=== PATIENT | female | born 1975 | race Caucasian/White ===

== ENCOUNTER 2019-04-14 08:54 | Emergency (ER) | payer MEDICAID ==
[2019-04-14 09:30] VITALS: O2SAT 100
[2019-04-14] MEDS ORDERED: TORAdol 30 mg Injection IV ONE (09:32)
[2019-04-14] MEDS ORDERED: MORPHINE SULFATE 4 MG INJ IV ONE (09:32)
[2019-04-14] MEDS ORDERED: Zofran 4 MG/2 ML VIAL IV ONE (09:32)
--- NOTE | 2019-04-14 09:44 | ERPHSYRPT ---
- History of Present Illness Time Seen by Provider: 04/14/19 09:30 Source: patient Exam Limitations: no limitations Patient Subjective Stated Complaint: BLOOD IN URINE, PAIN IN LEFT SIDE THAT GOES INTO BACK AND PELVIC AREA. STATES WHEN SHE VOIDS IN FEELS LIKE RAZOR BLADES. PATIENT STATES NAUSEATED Triage Nursing Assessment: PATIENT WITH BLOOD IN URINE. RESIDENT WITH HX KIDNEY STONES. PATIENT STATES BORN WITHOUT RIGHT KIDNEY. Physician History: 44-year-old female and horses long-standing history kidney stones often requiring surgical intervention presenting with what she thinks is a kidney stone. Patient also under history is so low kidney on the left. Patient has had 3 days of progressive stabbing sharp now severe constant left flank pain with dysuria and hematuria. Nausea without vomiting. No fevers. No abdominal pain. No focal numbness or weakness. PMH: Patient denies chronic medical history Social: Patient endorses tobacco use Allergies/Adverse Reactions: Sulfa (Sulfonamide Antibiotics) Allergy (Intermediate, Verified 04/14/19 09:38) Vomiting bee venom protein (honey bee) Allergy (Verified 04/14/19 09:40) ketorolac [From Toradol] Allergy (Verified 04/14/19 09:40) methylprednisolone [From Solu-Medrol] Allergy (Verified 04/14/19 09:40) tramadol Allergy (Verified 04/14/19 09:40) Hx Tetanus, Diphtheria Vaccination/Date Given: No Hx Influenza Vaccination/Date Given: No Hx Pneumococcal Vaccination/Date Given: No Immunizations Up to Date: Yes - Review of Systems Constitutional: No Fever, No Chills Eyes: No Symptoms Ears, Nose, & Throat: No Symptoms Respiratory: No Cough, No Dyspnea Cardiac: No Chest Pain, No Edema, No Syncope Abdominal/Gastrointestinal: Nausea, No Abdominal Pain, No Vomiting, No Diarrhea Genitourinary Symptoms: Dysuria, Hematuria, Other (left flank pain) Musculoskeletal: No Back Pain, No Neck Pain Skin: No Rash Neurological: No Dizziness, No Focal Weakness, No Sensory Changes Psychological: No Symptoms Endocrine: No Symptoms All Other Systems: Reviewed and Negative - Past Medical History Pertinent Past Medical History: Yes Neurological History: Migraines ENT History: No Pertinent History Cardiac History: No Pertinent History Respiratory History: No Pertinent History Endocrine Medical History: No Pertinent History Musculoskeletal History: Arthritis GI Medical History: Gallbladder Disease History: Other Psycho-Social History: Bipolar Female Reproductive Disorders: Other - Past Surgical History Past Surgical History: Yes Neuro Surgical History: No Pertinent History Cardiac: No Pertinent History Respiratory: No Pertinent History Gastrointestinal: Cholecystectomy Genitourinary: Kidney Surgery Musculoskeletal: No Pertinent History Female Surgical History: Hysterectomy - Social History Smoking Status: Current every day smoker How long have you smoked: 30 YEARS Exposure to second hand smoke: Yes Drug Use: none Patient Lives Alone: No - Female History Hx Last Menstrual Period: HX HYSTERECTOMY 16 YEARS AGO Hx Now: No - Nursing Vital Signs Nursing Vital Signs: Initial Vital Signs Temperature 97.3 F 04/14/19 09:27 Pulse Rate 92 H 04/14/19 09:27 Respiratory Rate 18 04/14/19 09:27 Blood Pressure 137/93 04/14/19 09:27 O2 Sat by Pulse Oximetry 100 04/14/19 09:27 Pain Scale Pain Intensity 10 - Physical Exam General Appearance: no apparent distress, alert Eye Exam: PERRL/EOMI, eyes nml inspection Ears, Nose, Throat Exam: normal ENT inspection, TMs normal, pharynx normal, moist mucous membranes Neck Exam: normal inspection, non-tender, supple, full range of motion Respiratory Exam: normal breath sounds, lungs clear, No respiratory distress Cardiovascular Exam: regular rate/rhythm, normal heart sounds, normal peripheral pulses Gastrointestinal/Abdomen Exam: soft, normal bowel sounds, No tenderness, No mass Back Exam: normal inspection, normal range of motion, No CVA tenderness, No vertebral tenderness Extremity Exam: normal inspection, normal range of motion, pelvis stable Neurologic Exam: alert, oriented x 3, cooperative, normal mood/affect, nml cerebellar function, nml station & gait, sensation nml, No motor deficits Skin Exam: normal color, warm, dry, No rash Lymphatic Exam: No adenopathy SpO2 Interpretation: normal SpO2: 100 O2 Delivery: Room Air Ordered Tests: Active Orders 24 hr Category Date Time Status ABDOMEN AND PELVIS W/0 CONTRAS [CT] Stat Exams 04/14/19 09:37 Completed BMP Stat Lab 04/14/19 09:53 Completed CBC W DIFF Stat Lab 04/14/19 09:53 Completed CULTURE,URINE Stat Lab 04/14/19 10:11 Received UA W/RFX UR CULTURE Stat Lab 04/14/19 10:11 Completed Medication Summary Generic Name Dose Route Start Last Admin Trade Name Freq PRN Reason Stop Dose Admin Lactated Ringer's 1,000 mls @ 999 mls/hr 04/14/19 10:30 04/14/19 10:38 Lactated Ringers IV 04/14/19 11:30 999 mls/hr .Q1H1M ONE Administration Discontinued Medications Generic Name Dose Route Start Last Admin Trade Name Freq PRN Reason Stop Dose Admin Lactated Ringer's Confirm 04/14/19 10:36 Lactated Ringers Administered 04/14/19 10:37 Dose 1,000 mls @ ud IV .STK-MED ONE Ketorolac Tromethamine 15 mg 04/14/19 09:32 04/14/19 10:08 Toradol 30 Mg Injection IV 04/14/19 09:33 Not Given STAT ONE Morphine Sulfate 4 mg 04/14/19 09:32 04/14/19 09:56 Morphine Sulfate 4 Mg Inj IV 04/14/19 09:33 4 mg STAT ONE Administration Morphine Sulfate Confirm 04/14/19 09:51 Morphine Sulfate 4 Mg Inj Administered 04/14/19 09:52 Dose 4 mg .ROUTE .STK-MED ONE Ondansetron HCl 4 mg 04/14/19 09:32 04/14/19 10:00 Zofran 4 Mg/2 Ml Vial IV 04/14/19 09:33 4 mg STAT ONE Administration Ondansetron HCl Confirm 04/14/19 09:51 Zofran 4 Mg/2 Ml Vial Administered 04/14/19 09:52 Dose 4 mg .ROUTE .STK-MED ONE Oxycodone/Acetaminophen 1 tab 04/14/19 10:35 Percocet Tablet 5/325mg PO 04/14/19 10:36 STAT STA Promethazine HCl 25 mg 04/14/19 10:35 Phenergan 25 Mg Inj IV 04/14/19 10:36 STAT ONE Lab/Rad Data: Laboratory Result Diagrams 04/14/19 09:53 04/14/19 09:53 Laboratory Results 04/14/19 04/14/19 04/14/19 Range/Units 10:11 09:53 09:53 WBC 8.4 (4.0-10.5) K/mm3 RBC 4.96 (4.1-5.4) M/mm3 Hgb 15.7 (12.0-16.0) gm/dl Hct 47.8 H (35-47) % MCV 96.4 (78-100) fl MCH 31.7 (26-32) pg MCHC 32.8 (32-36) g/dl RDW 13.7 (11.5-14.0) % Plt Count 373 (150-450) K/mm3 MPV 9.2 (6-9.5) fl Gran % 74.1 H (36.0-66.0) % Eos # (Auto) 0.18 (0-0.5) Absolute Lymphs (auto) 1.47 (1.0-4.6) Absolute Monos (auto) 0.50 (0.0-1.3) Lymphocytes % 17.6 L (24.0-44.0) % Monocytes % 6.0 (0.0-12.0) % Eosinophils % 2.2 (0.00-5.0) % Basophils % 0.1 (0.0-0.4) % Absolute Granulocytes 6.20 (1.4-6.9) Basophils # 0.01 (0-0.4) Sodium 147 H (137-145) mmol/L Potassium 4.0 (3.5-5.1) mmol/L Chloride 113 H (98-107) mmol/L Carbon Dioxide 22 (22-30) mmol/L Anion Gap 15.5 H (5-15) MEQ/L BUN 15 (7-17) mg/dL Creatinine 0.73 (0.52-1.04) mg/dL Estimated GFR > 60.0 ML/MIN Glucose 92 (74-106) mg/dL Calcium 10.1 (8.4-10.2) mg/dL Urine Color YELLOW (YELLOW) Urine Appearance SLIGHTLY CLOUDY (CLEAR) Urine pH 5.0 (5-6) Ur Specific [place] 1.018 (1.005-1.025) Urine Protein 30 (Negative) Urine Ketones NEGATIVE (NEGATIVE) Urine Blood LARGE (0-5) Ed/ul Urine Nitrite NEGATIVE (NEGATIVE) Urine Bilirubin MODERATE (NEGATIVE) Urine Urobilinogen 4 (0-1) mg/dL Ur Leukocyte Esterase TRACE (NEGATIVE) Urine WBC (Auto) 51-100 (0-5) /HPF Urine RBC (Auto) >101 (0-2) /HPF U Epithel Cells (Auto) RARE (FEW) /HPF Urine Bacteria (Auto) NONE (NEGATIVE) /HPF Urine Culture Reflexed YES (NO) Urine Glucose NEGATIVE (NEGATIVE) mg/dL - Progress Progress: unchanged Progress Note: on initial reevaluation the patient's pain and not are reportedly unchanged. His normal blood pressure is not tachycardic and appeared fairly uncomfortable. She has specifically asked twice which he was receiving her medications and when told that the more he may make her nauseous she states that she always tolerates working well and then specifically requests Phenergan IV for her nausea. At this point CT scan is back and is not show evidence of kidney stone that she may have passed one. She has a normal caliber aorta without evidence of vascular catastrophe and no other acute findings. Her labs show likely mild dehydration but without leukocytosis I have low suspicion for infectious etiology.. In addition, we're waiting a urine to rule out UTI/pyelonephritis and at this time we'll transition her away from IV narcotics to oral pain medications during her time in the emergency department and give her additional antiemetics, though I do have some suspicion for narcotic seeking behavior here. urine sample difficult to interpret given the number of inflammatory white blood cells and red cells, suspect she may have recently passed a stone. It is nitrite negative however it is possible this is UTI/pyelonephritis given the number of white blood cells and we will treat with antibiotics accordingly. I said she is nontoxic afebrile and again without other vital sign abnormalities or physical exam findings consistent with severe disease. Culture pending. Patient prepared for discharge with further outpatient management and return precautions discussed in voice back. 04/14/19 10:35 04/14/19 10:50 - Departure Departure Disposition: Home Clinical Impression: UTI (urinary tract infection) with pyuria, Flank pain, Nausea Condition: Good Critical Care Time: No Referrals: DOCTOR,NO FAMILY [Primary Care Provider] - Instructions: Acute Cystitis (DC) Prescriptions: Ondansetron ODT 4 MG [Zofran Odt 4 mg] 4 mg PO Q6H PRN PRN #10 tab.rapdis PRN Reason: Nausea Cephalexin Mh 500 mg [Keflex 500 mg] 500 mg PO BID 5 Days #10 capsule
[2019-04-14] MEDS ORDERED: Zofran 4 MG/2 ML VIAL ONE (09:51)
[2019-04-14] MEDS ORDERED: MORPHINE SULFATE 4 MG INJ ONE (09:51)
[2019-04-14 09:55] LABS: BASOPHIL % 0.1 % (0.0-0.4); Basophil (Absolute #) 0.01 (0-0.4); Eosinophil % 2.2 % (0.00-5.0); Eosinophil (Absolute #) 0.18 (0-0.5); Hematocrit 47.8 % (35-47); Hemoglobin 15.7 gm/dl (12.0-16.0); Lymphocyte (Absolute #) 1.47 (1.0-4.6); Lymphocytes % 17.6 % (24.0-44.0); Mean Cell Volume 96.4 fl (78-100); Mean Corpuscular Hemoglobin 31.7 pg (26-32); Mean Corpuscular Hgb Concent. 32.8 g/dl (32-36); Mean Platelet Volume 9.2 fl (6-9.5); Neutrophil % 74.1 % (36.0-66.0); Platelet Count 373 K/mm3 (150-450); Red Blood Count 4.96 M/mm3 (4.1-5.4); Red Cell Distribution Width 13.7 % (11.5-14.0); White Blood Count 8.4 K/mm3 (4.0-10.5)
[2019-04-14 10:25] LABS: ANION GAP 15.5 MEQ/L (5-15); BLOOD UREA NITROGEN 15 mg/dL (7-17); CHLORIDE 113 mmol/L (98-107); Calcium 10.1 mg/dL (8.4-10.2); Carbon Dioxide 22 mmol/L (22-30); Creatinine 1 0.73 mg/dL (0.52-1.04); Glucose 92 mg/dL (74-106); SODIUM 147 mmol/L (137-145)
[2019-04-14] MEDS ORDERED: Lactated Ringers 1,000 ML IV ONE ×2 (10:30→10:36)
--- NOTE | 2019-04-14 10:30 | XRAY ---
Indication: Left flank pain. Multiple contiguous axial images obtained through the abdomen and pelvis without contrast using renal stone protocol. Comparison: None Lung bases demonstrates minimal bibasilar dependent atelectasis and tiny left calcified granuloma. Heart is not enlarged. Small distal paraesophageal calcified node. Left kidney demonstrates 3 nonobstructing micro-calculi, largest 3 mm. 7 mm left mid renal cortical cyst. Congenitally absent right kidney. A few pelvic phleboliths. Noncontrasted stomach and bowel loops appear nonobstructed. Normal appendix. No free fluid/air. A few calcified splenic granulomas. Previous cholecystectomy. Remaining liver, pancreas, spleen, adrenal glands, left kidney, left ureter, and urinary bladder appear unremarkable for noncontrast exam. Minimal aortoiliac calcifications without AAA. Osseous structures intact with mild L5-S1 degenerative changes. Impression: 1. Nonobstructing left renal micro-calculi and small left renal cyst. Congenitally absent right kidney. 2. Evidence for old granulomatous disease. 3. Remaining CT abdomen/pelvis without contrast exam is negative. CTDI 5.38
[2019-04-14 10:35] LABS: Appearance SLIGHTLY CLOUDY (CLEAR); Bilirubin MODERATE (NEGATIVE); Blood LARGE Ery/ul (0-5); Epithelial Cells RARE /HPF (FEW); Glucose NEGATIVE (NEGATIVE); Ketones NEGATIVE (NEGATIVE); Leukocyte Esterase TRACE (NEGATIVE); Nitrite NEGATIVE (NEGATIVE); Protein,Urine Dip 30 (Negative); Specific Gravity 1.018 (1.005-1.025); Urobilinogen 4 mg/dL (0-1); WBC 51-100 /HPF (0-5)
[2019-04-14] MEDS ORDERED: PERCOCET TABLET 5/325MG PO STA (10:35)
[2019-04-14] MEDS ORDERED: Phenergan 25 MG INJ IV ONE (10:35)
[2019-04-14 10:38] LABS: RBC >101 /HPF (0-2)
[2019-04-14] MEDS ORDERED: Phenergan 25 MG INJ ONE (10:46)
[2019-04-14] MEDS ORDERED: PERCOCET TABLET 5/325MG ONE (10:46)
[2019-04-14 11:00] VITALS: BP 105/83; PULSE 78
== END 2019-04-14 11:24 | disposition home or self-care (01) ==
LOC: ED 08:54
DX: R11.0 Nausea (principal)
CPT/HCPCS: 36415; 74176; 80048; 81001; 85025; 87077; 87086; 87186; 96374; 96375; 99285; J2270; J2405; J2550; A9270-GY

== ENCOUNTER 2019-06-03 13:03 | Emergency (ER) | payer MEDICAID ==
[2019-06-03] MEDS ORDERED: Zofran 4 MG/2 ML VIAL IV ONE (13:51)
[2019-06-03] MEDS ORDERED: Sodium Chloride 0.9% 1000 ML 1,000 ML IV STA (13:51)
[2019-06-03] MEDS ORDERED: MORPHINE SULFATE 4 MG INJ IV ONE (13:51)
--- NOTE | 2019-06-03 13:55 | ERPHSYRPT ---
- History of Present Illness Time Seen by Provider: 06/03/19 13:32 Historian: patient Exam Limitations: no limitations Patient Subjective Stated Complaint: PATIENT STATES SHE KNOWS SHE HAS A UTI. 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 Triage Nursing Assessment: PATIENT AMBULATED BACK TO ER. PATIENT VOIDED UPON GOING TO ROOM. URINE COLLECTED. URINE STRAW COLOR SLIGHTLY CLOUDY. NO ODOR NOTED. PATIENT ANSWERS QUESTIONS APPROPRIATLEY. PATIENT ALERT AND ORIENTATED TIMES 4. ABD SOFT ROUND NOON-DISTENDED. PATIENT STATES PAIN IN LEFT SIDE OD ABD UPON PALPITATION ANS STATES IT RADIATES TO HER LOWER BACK AND SIDE. PATIENT STATES SHE HAS BEEN HAVING NAUSEA BUT NO VOMITING. PATIENT STATES APPETITE AND FLUID INTAKE ADEQUATE Physician History: 44 years old female with history of kidney stones, migraines present in the ER with chief complaint of left flank pain for the last 2 days, more decreased in intensity, sharp stabbing,, feeling as if her razor blade while urinating. Associated with hematuria increased frequency with burning. Has nausea but no vomiting. Denies any fever or chills Timing/Duration: day(s) (2) Activities at Onset: rest Quality: sharpness, stabbing Abdominal Pain Onset Location: flank Pain Radiation: groin Severity of Pain-Max: moderate Severity of Pain-Current: severe Modifying Factors: Improves With: movement, palpation Allergies/Adverse Reactions: Sulfa (Sulfonamide Antibiotics) Allergy (Intermediate, Verified 06/03/19 14:51) Vomiting bee venom protein (honey bee) Allergy (Verified 06/03/19 14:51) ketorolac [From Toradol] Allergy (Verified 06/03/19 14:51) methylprednisolone [From Solu-Medrol] Allergy (Verified 06/03/19 14:51) tramadol Allergy (Verified 06/03/19 14:51) Hx Tetanus, Diphtheria Vaccination/Date Given: Yes Hx Influenza Vaccination/Date Given: No Hx Pneumococcal Vaccination/Date Given: No Immunizations Up to Date: Yes - Review of Systems Constitutional: No Symptoms Eyes: No Symptoms Ears, Nose, & Throat: No Symptoms Respiratory: No Symptoms Cardiac: No Symptoms Abdominal/Gastrointestinal: Abdominal Pain, Nausea, No Vomiting Genitourinary Symptoms: Dysuria, Frequency, Hematuria, Flank Pain Musculoskeletal: No Symptoms Skin: No Symptoms Neurological: No Symptoms Psychological: No Symptoms Endocrine: No Symptoms Hematologic/Lymphatic: No Symptoms - Past Medical History Pertinent Past Medical History: Yes Neurological History: Migraines ENT History: No Pertinent History Cardiac History: No Pertinent History Respiratory History: No Pertinent History Endocrine Medical History: No Pertinent History Musculoskeletal History: Arthritis GI Medical History: Gallbladder Disease History: Other Psycho-Social History: Bipolar Female Reproductive Disorders: Other - Past Surgical History Past Surgical History: Yes Neuro Surgical History: No Pertinent History Cardiac: No Pertinent History Respiratory: No Pertinent History Gastrointestinal: Cholecystectomy Genitourinary: Kidney Surgery Musculoskeletal: No Pertinent History Female Surgical History: Hysterectomy - Social History Smoking Status: Current every day smoker How long have you smoked: 20 YEARS Exposure to second hand smoke: Yes Drug Use: none Patient Lives Alone: No - Female History Hx Last Menstrual Period: POST Hx Now: No - Nursing Vital Signs Nursing Vital Signs: Initial Vital Signs Temperature 97.9 F 06/03/19 13:28 Pulse Rate 99 H 06/03/19 13:28 Respiratory Rate 16 06/03/19 13:28 Blood Pressure 128/79 06/03/19 13:28 O2 Sat by Pulse Oximetry 98 06/03/19 13:28 Pain Scale Pain Intensity 6 - Physical Exam General Appearance: no apparent distress Eye Exam: PERRL/EOMI, eyes nml inspection Ears, Nose, Throat Exam: normal ENT inspection, TMs normal, pharynx normal Neck Exam: normal inspection, non-tender Respiratory Exam: normal breath sounds, lungs clear, No chest tenderness Cardiovascular Exam: regular rate/rhythm, normal heart sounds, normal peripheral pulses Gastrointestinal/Abdomen Exam: soft, tenderness (left flank/LLQ/suprapubic ), guarding, No distention, No mass Back Exam: normal inspection, normal range of motion, CVA tenderness Extremity Exam: normal inspection Neurologic Exam: alert, oriented x 3, cooperative Skin Exam: normal color SpO2 Interpretation: normal SpO2: 98 O2 Delivery: Room Air - Course Nursing assessment & vital signs reviewed: Yes Ordered Tests: Active Orders 24 hr Category Date Time Status ABDOMEN AND PELVIS W/0 CONTRAS [CT] Stat Exams 06/03/19 13:51 Completed CBC W DIFF Stat Lab 06/03/19 13:51 Completed CMP Stat Lab 06/03/19 14:07 Completed CULTURE,URINE Stat Lab 06/03/19 14:19 Received LIPASE Stat Lab 06/03/19 14:07 Completed UA W/RFX UR CULTURE Stat Lab 06/03/19 14:19 Completed Medication Summary Discontinued Medications Generic Name Dose Route Start Last Admin Trade Name Yehuda PRN Reason Stop Dose Admin Sodium Chloride 1,000 mls @ 999 mls/hr 06/03/19 13:51 06/03/19 15:12 Sodium Chloride 0.9% 1000 Ml IV 06/03/19 14:51 Infused .Q1H1M STA Infusion Sodium Chloride Confirm 06/03/19 14:06 Sodium Chloride 0.9% 1000 Ml Administered 06/03/19 14:07 Dose 1,000 mls @ ud .ROUTE .STK-MED ONE Ketorolac Tromethamine 30 mg 06/03/19 15:40 06/03/19 15:46 Toradol 30 Mg Injection IV 06/03/19 15:41 30 mg STAT ONE Administration Ketorolac Tromethamine Confirm 06/03/19 15:45 Toradol 30 Mg Injection Administered 06/03/19 15:46 Dose 30 mg .ROUTE .STK-MED ONE Morphine Sulfate 4 mg 06/03/19 13:51 06/03/19 14:11 Morphine Sulfate 4 Mg Inj IV 06/03/19 13:52 4 mg STAT ONE Administration Morphine Sulfate Confirm 06/03/19 14:06 Morphine Sulfate 4 Mg Inj Administered 06/03/19 14:07 Dose 4 mg .ROUTE .STK-MED ONE Ondansetron HCl 4 mg 06/03/19 13:51 06/03/19 14:12 Zofran 4 Mg/2 Ml Vial IV 06/03/19 13:52 4 mg STAT ONE Administration Ondansetron HCl Confirm 06/03/19 14:06 Zofran 4 Mg/2 Ml Vial Administered 06/03/19 14:07 Dose 4 mg .ROUTE .STK-MED ONE Promethazine HCl 12.5 mg 06/03/19 15:40 06/03/19 15:43 Phenergan 25 Mg Inj IV 06/03/19 15:41 Not Given STAT ONE Promethazine HCl 25 mg 06/03/19 15:44 06/03/19 15:46 Phenergan 25 Mg PO 06/03/19 15:45 25 mg STAT ONE Administration Promethazine HCl Confirm 06/03/19 15:45 Phenergan 25 Mg Administered 06/03/19 15:46 Dose 25 mg .ROUTE .[facility]-MED ONE Lab/Rad Data: Laboratory Result Diagrams 06/03/19 13:51 06/03/19 14:07 Laboratory Results 06/03/19 06/03/19 06/03/19 Range/Units 14:19 14:07 13:51 WBC 6.3 (4.0-10.5) K/mm3 RBC 4.66 (4.1-5.4) M/mm3 Hgb 15.2 (12.0-16.0) gm/dl Hct 44.2 (35-47) % MCV 94.8 (78-100) fl MCH 32.6 H (26-32) pg MCHC 34.4 (32-36) g/dl RDW 14.0 (11.5-14.0) % Plt Count 436 (150-450) K/mm3 MPV 8.5 (7.5-11.0) fl Gran % 76.5 H (36.0-66.0) % Eos # (Auto) 0.07 (0-0.5) Absolute Lymphs (auto) 1.08 (1.0-4.6) Absolute Monos (auto) 0.32 (0.0-1.3) Lymphocytes % 17.1 L (24.0-44.0) % Monocytes % 5.1 (0.0-12.0) % Eosinophils % 1.1 (0.00-5.0) % Basophils % 0.2 (0.0-0.4) % Absolute Granulocytes 4.85 (1.4-6.9) Basophils # 0.01 (0-0.4) Sodium 143 (137-145) mmol/L Potassium 3.7 (3.5-5.1) mmol/L Chloride 107 (98-107) mmol/L Carbon Dioxide 23 (22-30) mmol/L Anion Gap 16.6 H (5-15) MEQ/L BUN 12 (7-17) mg/dL Creatinine 0.73 (0.52-1.04) mg/dL Estimated GFR > 60.0 ML/MIN Glucose 137 H (74-106) mg/dL Calcium 10.0 (8.4-10.2) mg/dL Total Bilirubin 0.40 (0.2-1.3) mg/dL AST 30 (14-36) U/L ALT 27 (0-35) U/L Alkaline Phosphatase 132 H (38-126) U/L Serum Total Protein 9.2 H (6.3-8.2) g/dL Albumin 4.8 (3.5-5.0) g/dL Lipase 33 (23-300) U/L Urine Color YELLOW (YELLOW) Urine Appearance SLIGHTLY CLOUDY (CLEAR) Urine pH 5.0 (5-6) Ur Specific [place] 1.026 (1.005-1.025) Urine Protein 30 (Negative) Urine Ketones TRACE (NEGATIVE) Urine Blood NEGATIVE (0-5) Ed/ul Urine Nitrite NEGATIVE (NEGATIVE) Urine Bilirubin NEGATIVE (NEGATIVE) Urine Urobilinogen NEGATIVE (0-1) mg/dL Ur Leukocyte Esterase SMALL (NEGATIVE) Urine WBC (Auto) 16-25 (0-5) /HPF Urine RBC (Auto) 3-5 (0-2) /HPF U Hyaline Cast (Auto) 6-10 (0-2) /LPF U Epithel Cells (Auto) FEW (FEW) /HPF Urine Bacteria (Auto) FEW (NEGATIVE) /HPF Urine Mucus (Auto) SLIGHT (NEGATIVE) /HPF Urine Culture Reflexed YES (NO) Urine Glucose NEGATIVE (NEGATIVE) mg/dL - Progress Progress: improved, pain not gone completely, re-examined Progress Note: she is given fluid and symptomatic treatment , feeling better oon reevaluation.I have obtained CT which showed recent passage of stone.. Does have some element of UTI. I would give her pain medication and antibiotics to go home, recommended outpatient followup with primary care in urology for evaluation. As the signs symptoms or worsening needing to come to the ER but she seems understanding. 06/03/19 Counseled pt/family regarding: lab results, diagnosis, need for follow-up, rad results, smoking cessation - Departure Departure Disposition: Home Clinical Impression: Ureterolithiasis Condition: Stable Critical Care Time: No Referrals: CHENCHO SALVADOR [COURTESY STAFF] - (call for appointment next week) MONICA MADDEN MD [ACTIVE STAFF] - Follow Up with PCP/3 days Instructions: Urinary Tract Infection, Adult (DC) Additional Instructions: drink plenty of fluids. Take ibuprofen/[place] needed. Follow up with primary care/urology for reevaluation. Return to ER for intractable pain, vomiting, fever chills etc. Prescriptions: Hydrocodone/APAP 5-325 Tab^^^ [[place] 5-325 Tablet^^^] 1 tab PO Q6HPRN PRN #7 tablet MDD 6 PRN Reason: Pain Smz/Tmp Ds Tablet [Bactrim Ds Tablet] 1 udtab PO BID #14 tablet
[2019-06-03 14:06] LABS: Absolute Neutrophil Ct (ANC) 4.85 (1.4-6.9); BASOPHIL % 0.2 % (0.0-0.4); Basophil (Absolute #) 0.01 (0-0.4); Eosinophil % 1.1 % (0.00-5.0); Eosinophil (Absolute #) 0.07 (0-0.5); Hematocrit 44.2 % (35-47); Hemoglobin 15.2 gm/dl (12.0-16.0); Lymphocyte (Absolute #) 1.08 (1.0-4.6); Lymphocytes % 17.1 % (24.0-44.0); Mean Cell Volume 94.8 fl (78-100); Mean Corpuscular Hemoglobin 32.6 pg (26-32); Mean Corpuscular Hgb Concent. 34.4 g/dl (32-36); Mean Platelet Volume 8.5 fl (7.5-11.0); Monocyte (Absolute #) 0.32 (0.0-1.3); Monocytes % 5.1 % (0.0-12.0); Neutrophil % 76.5 % (36.0-66.0); Platelet Count 436 K/mm3 (150-450); Red Blood Count 4.66 M/mm3 (4.1-5.4); White Blood Count 6.3 K/mm3 (4.0-10.5)
[2019-06-03] MEDS ORDERED: Sodium Chloride 0.9% 1000 ML 1,000 ML ONE (14:06)
[2019-06-03] MEDS ORDERED: MORPHINE SULFATE 4 MG INJ ONE (14:06)
[2019-06-03] MEDS ORDERED: Zofran 4 MG/2 ML VIAL ONE (14:06)
[2019-06-03 14:17] LABS: ALBUMIN 4.8 g/dL (3.5-5.0); ALKALINE PHOSPHATASE 132 U/L (38-126); ANION GAP 16.6 MEQ/L (5-15); BLOOD UREA NITROGEN 12 mg/dL (7-17); CHLORIDE 107 mmol/L (98-107); Carbon Dioxide 23 mmol/L (22-30); Creatinine 1 0.73 mg/dL (0.52-1.04); Glucose 137 mg/dL (74-106); LIPASE 33 U/L (23-300); Potassium 3.7 mmol/L (3.5-5.1); SGOT/AST 30 U/L (14-36); SGPT/ALT 27 U/L (0-35); SODIUM 143 mmol/L (137-145); Total Protein 9.2 g/dL (6.3-8.2)
[2019-06-03 14:35] LABS: Appearance SLIGHTLY CLOUDY (CLEAR); Bacteria FEW /HPF (NEGATIVE); Bilirubin NEGATIVE (NEGATIVE); Blood NEGATIVE Ery/ul (0-5); Epithelial Cells FEW /HPF (FEW); Glucose NEGATIVE (NEGATIVE); Ketones TRACE (NEGATIVE); Leukocyte Esterase SMALL (NEGATIVE); Mucus SLIGHT /HPF (NEGATIVE); Nitrite NEGATIVE (NEGATIVE); Protein,Urine Dip 30 (Negative); Specific Gravity 1.026 (1.005-1.025); Urobilinogen NEGATIVE mg/dL (0-1)
--- NOTE | 2019-06-03 14:59 | XRAY ---
Indication: Left lower quadrant and flank pain. Painful urination. History stones and congenitally absent right kidney. Multiple contiguous axial images obtained through the abdomen and pelvis without contrast using renal stone protocol. Comparison: April 14, 2019. Lung bases demonstrates stable right posterior gutter bleb without infiltrate or effusion. Heart is not enlarged. Stable small distal paraesophageal calcified node. Left kidney demonstrates stable 2 nonobstructing micro-calculi in the lower calyx and left mid renal cortical cyst. No hydronephrosis or perinephric fluid. Left mid to proximal ureter is now slightly prominent up to 7-8mm. No distal ureteral or bladder calculus. Again congenitally absent right kidney. Noncontrasted stomach and bowel loops nonobstructed. Normal appendix. Again a few calcified splenic granulomas and cholecystectomy clips. No free fluid/air. Remaining liver, pancreas, spleen, left kidney, left ureter, and urinary bladder appear unremarkable for noncontrast exam. Stable minimal aortoiliac calcifications without AAA. 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 Osseous structures intact again with L5-S1 degenerative changes. Impression: 1. There are 2 stable nonobstructing left renal micro-calculi previously numbering 3. Left ureter is slightly prominent. Query recent passage of calculus. 2. Stable left renal cyst, congenitally absent right kidney, duplication of the IVC, and evidence for old granulomatous disease.
[2019-06-03] MEDS ORDERED: TORAdol 30 mg Injection IV ONE (15:40)
[2019-06-03] MEDS ORDERED: Phenergan 25 MG INJ IV ONE (15:40)
[2019-06-03] MEDS ORDERED: PHENERGAN 25 MG PO ONE (15:44)
[2019-06-03] MEDS ORDERED: PHENERGAN 25 MG ONE (15:45)
[2019-06-03] MEDS ORDERED: TORAdol 30 mg Injection ONE (15:45)
[2019-06-03 15:52] VITALS: BP 112/75; PULSE 80; O2SAT 98
== END 2019-06-03 15:59 | disposition home or self-care (01) ==
LOC: ED 13:03
DX: N20.1 Calculus of ureter (principal); R10.9 Unspecified abdominal pain; R11.0 Nausea; R30.0 Dysuria; R35.0 Frequency of micturition; R31.9 Hematuria, unspecified
CPT/HCPCS: 36000; 36415; 74176; 80053; 81001; 83690; 85025; 87077; 87086; 87186; 96374; 96375; 99284; J1885; J2270; J2405; A9270-GY

== ENCOUNTER 2019-06-14 11:49 | Emergency (ER) | payer MEDICAID ==
--- NOTE | 2019-06-14 11:55 | ERPHSYRPT ---
- History of Present Illness Time Seen by Provider: 06/14/19 11:55 Source: patient Exam Limitations: no limitations Physician History: 44 y/o white female, with h/o recurrent utis and ureterolithiasis, presents with worsening left flank pain. pt sx present for several day and worse since yesterday. pt was suppose to be taking oral antibx but quit taking them because they were making her ill. she has not seen a pcp or urologist. pt has not had medical insurance. Timing/Duration: day(s) (several), worse Activites at Onset: none Quality: sharpness (left flank) Onset Location: left flank Severity of Pain-Max: moderate Severity of Pain-Current: moderate Prior abdominal problems: UTI Sexual intercourse history: non-contributory Associated Symptoms: chills, other (hematuria) Allergies/Adverse Reactions: Sulfa (Sulfonamide Antibiotics) Allergy (Intermediate, Verified 06/14/19 11:58) Vomiting bee venom protein (honey bee) Allergy (Verified 06/14/19 11:58) ketorolac [From Toradol] Allergy (Verified 06/14/19 11:58) methylprednisolone [From Solu-Medrol] Allergy (Verified 06/14/19 11:58) tramadol Allergy (Verified 06/14/19 11:58) Home Medications: Gabapentin 300 mg PO TID 06/14/19 [History] Hx Tetanus, Diphtheria Vaccination/Date Given: Yes Hx Influenza Vaccination/Date Given: No Hx Pneumococcal Vaccination/Date Given: No - Review of Systems Constitutional: No Symptoms Eyes: No Symptoms Ears, Nose, & Throat: No Symptoms Respiratory: No Symptoms Cardiac: No Symptoms Abdominal/Gastrointestinal: No Symptoms Genitourinary Symptoms: Hematuria Musculoskeletal: No Symptoms Skin: No Symptoms Neurological: No Symptoms Psychological: No Symptoms Endocrine: No Symptoms Hematologic/Lymphatic: No Symptoms Immunological/Allergic: No Symptoms All Other Systems: Reviewed and Negative - Past Medical History Pertinent Past Medical History: Yes Neurological History: Migraines ENT History: No Pertinent History Cardiac History: No Pertinent History Respiratory History: No Pertinent History Endocrine Medical History: No Pertinent History Musculoskeletal History: Arthritis GI Medical History: Gallbladder Disease History: Other Psycho-Social History: Bipolar Female Reproductive Disorders: Other - Past Surgical History Past Surgical History: Yes Neuro Surgical History: No Pertinent History Cardiac: No Pertinent History Respiratory: No Pertinent History Gastrointestinal: Cholecystectomy Genitourinary: Kidney Surgery Musculoskeletal: No Pertinent History Female Surgical History: Hysterectomy - Social History Smoking Status: Current every day smoker How long have you smoked: 20 YEARS Exposure to second hand smoke: Yes Drug Use: none Patient Lives Alone: No - Nursing Vital Signs Nursing Vital Signs: Initial Vital Signs Temperature 98.1 F 06/14/19 11:54 Pulse Rate 96 H 06/14/19 11:54 Blood Pressure 135/96 06/14/19 11:54 O2 Sat by Pulse Oximetry 100 06/14/19 11:54 Pain Scale Pain Intensity 6 - Physical Exam General Appearance: mild distress, alert, anxiety Eye Exam: PERRL/EOMI, eyes nml inspection Ears, Nose, Throat Exam: normal ENT inspection, moist mucous membranes Neck Exam: normal inspection, non-tender, supple, full range of motion Respiratory Exam: normal breath sounds, lungs clear, No chest tenderness, No respiratory distress Cardiovascular Exam: regular rate/rhythm, normal heart sounds, normal peripheral pulses Gastrointestinal/Abdomen Exam: soft, normal bowel sounds, No tenderness, No guarding Pelvic Exam: not done Rectal Exam: not done Back Exam: CVA tenderness (left) Extremity Exam: normal inspection, normal range of motion, pelvis stable Neurologic Exam: alert, oriented x 3, cooperative, 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 Skin Exam: normal color, warm, dry Lymphatic Exam: No adenopathy O2 Delivery: Room Air - Course Nursing assessment & vital signs reviewed: Yes Ordered Tests: Active Orders 24 hr Category Date Time Status IV Insertion STAT Care 06/14/19 12:13 Active ABDOMEN AND PELVIS W/0 CONTRAS [CT] Stat Exams 06/14/19 12:14 Completed CULTURE,URINE Stat Lab 06/14/19 14:00 Received UA W/RFX UR CULTURE Stat Lab 06/14/19 14:00 Completed Medication Summary Discontinued Medications Generic Name Dose Route Start Last Admin Trade Name Freq PRN Reason Stop Dose Admin Hydromorphone HCl 1 mg 06/14/19 12:13 06/14/19 12:25 Hydromorphone 1 Mg/Ml Ampule IV 06/14/19 12:14 1 mg STAT ONE Administration Hydromorphone HCl Confirm 06/14/19 12:23 Hydromorphone 1 Mg/Ml Ampule Administered 06/14/19 12:24 Dose 1 mg .ROUTE .STK-MED ONE Hydromorphone HCl 1 mg 06/14/19 13:29 06/14/19 13:36 Hydromorphone 1 Mg/Ml Ampule IV 06/14/19 13:30 1 mg STAT ONE Administration Hydromorphone HCl Confirm 06/14/19 13:35 Hydromorphone 1 Mg/Ml Ampule Administered 06/14/19 13:36 Dose 1 mg .ROUTE .STK-MED ONE Sodium Chloride 1,000 mls @ 999 mls/hr 06/14/19 12:13 06/14/19 14:15 Sodium Chloride 0.9% 1000 Ml IV 06/14/19 13:13 Infused .Q1H1M STA Infusion Sodium Chloride Confirm 06/14/19 12:23 Sodium Chloride 0.9% 1000 Ml Administered 06/14/19 12:24 Dose 1,000 mls @ ud .ROUTE .STK-MED ONE Ceftriaxone Sodium/Dextrose 1 g in 50 mls @ 100 mls/hr 06/14/19 13:50 14:10 Rocephin 1 Gm-D5w 50 Ml Bag IV 06/14/19 14:19 100 mls/hr STAT STA 100 mls/hr Administration Ceftriaxone Sodium/Dextrose Confirm 06/14/19 14:07 Rocephin 1 Gm-D5w 50 Ml Bag Administered 06/14/19 14:08 Dose 1 g in 50 mls @ ud IV .STK-MED ONE Ondansetron HCl 4 mg 06/14/19 12:13 06/14/19 12:24 Zofran 4 Mg/2 Ml Vial IV 06/14/19 12:14 4 mg STAT ONE Administration Ondansetron HCl Confirm 06/14/19 12:22 Zofran 4 Mg/2 Ml Vial Administered 06/14/19 12:23 Dose 4 mg .ROUTE .STK-MED ONE Lab/Rad Data: Laboratory Results 06/14/19 Range/Units 14:00 Urine Color YELLOW (YELLOW) Urine Appearance SLIGHTLY CLOUDY (CLEAR) Urine pH 7.0 (5-6) Ur Specific [place] 1.014 (1.005-1.025) Urine Protein NEGATIVE (Negative) Urine Ketones NEGATIVE (NEGATIVE) Urine Blood LARGE (0-5) Ed/ul Urine Nitrite NEGATIVE (NEGATIVE) Urine Bilirubin NEGATIVE (NEGATIVE) Urine Urobilinogen NEGATIVE (0-1) mg/dL Ur Leukocyte Esterase TRACE (NEGATIVE) Urine WBC (Auto) 26-50 (0-5) /HPF Urine RBC (Auto) >101 (0-2) /HPF U Epithel Cells (Auto) RARE (FEW) /HPF Urine Bacteria (Auto) MODERATE (NEGATIVE) /HPF Urine Culture Reflexed YES (NO) Urine Glucose NEGATIVE (NEGATIVE) mg/dL - Progress Progress: improved Air Movement: good Progress Note: 06/14/19 14:27 ct abd/pelvis-fecal stasis. no acute process Blood Culture(s) Obtained: No Antibiotics given: Yes Counseled pt/family regarding: lab results, diagnosis, need for follow-up, rad results - Departure Departure Disposition: Home Clinical Impression: Hematuria, UTI (urinary tract infection) Condition: Stable Critical Care Time: No Referrals: DOCTOR,NO FAMILY [NON-STAFF PHY W/O PRIVILEGES] - Additional Instructions: drink plenty of fluids. follow up with dr. diggs and urologist for further management Prescriptions: Hydrocodone/APAP 5/325 [[place] 5/325 mg] 1 each PO Q8H PRN PRN #7 tablet MDD 3 PRN Reason: Pain Cefdinir 300 mg PO BID 7 Days #14 capsule
[2019-06-14] MEDS ORDERED: Sodium Chloride 0.9% 1000 ML 1,000 ML IV STA (12:13)
[2019-06-14] MEDS ORDERED: Zofran 4 MG/2 ML VIAL IV ONE (12:13)
[2019-06-14] MEDS ORDERED: Hydromorphone 1 mg/ml Ampule IV ONE ×2 (12:13→13:29)
[2019-06-14] MEDS ORDERED: Zofran 4 MG/2 ML VIAL ONE (12:22)
[2019-06-14] MEDS ORDERED: Hydromorphone 1 mg/ml Ampule ONE ×2 (12:23→13:35)
[2019-06-14] MEDS ORDERED: Sodium Chloride 0.9% 1000 ML 1,000 ML ONE (12:23)
--- NOTE | 2019-06-14 13:43 | XRAY ---
Indication: Left flank pain. Multiple contiguous axial images obtained through the abdomen and pelvis without using renal stone protocol. Comparison: June 03, 2019. Lung bases remain clear with stable right posterior gutter bleb. Heart is not enlarged. Left kidney demonstrates 2 stable nonobstructing micro-calculi and small cortical cyst. Again congenitally absent right kidney, calcified splenic granulomas, cholecystectomy, and duplication of the IVC. No free fluid/air. Stomach is mildly distended with food/fluid. Noncontrasted stomach and bowel loops appear nonobstructed normal appendix. There is now mild/moderate diffuse scattered colonic fecal debris throughout including rectum. Remaining liver, pancreas, spleen, adrenal glands, left kidney, left ureter, and urinary bladder appear unremarkable for noncontrast exam. Stable minimal aortoiliac calcifications without AAA. Impression: 1. Stable nonobstructing left renal micro-calculi with small cortical cyst, congenitally absent right kidney, and duplication of the IVC. 2. New diffuse fecal stasis without obstruction. 3. Remaining CT abdomen/pelvis without contrast exam is negative.
[2019-06-14] MEDS ORDERED: ROCEPHIN 1 Gm-D5w 50 ml Bag** 1 G/50 ML IVPB IV STA (13:50)
[2019-06-14] MEDS ORDERED: ROCEPHIN 1 Gm-D5w 50 ml Bag** 1 G/50 ML IVPB IV ONE (14:07)
[2019-06-14 14:13] LABS: Appearance SLIGHTLY CLOUDY (CLEAR); Bacteria MODERATE /HPF (NEGATIVE); Bilirubin NEGATIVE (NEGATIVE); Blood LARGE Ery/ul (0-5); Epithelial Cells RARE /HPF (FEW); Glucose NEGATIVE (NEGATIVE); Ketones NEGATIVE (NEGATIVE); Leukocyte Esterase TRACE (NEGATIVE); Nitrite NEGATIVE (NEGATIVE); Protein,Urine Dip NEGATIVE (Negative); Specific Gravity 1.014 (1.005-1.025); Urobilinogen NEGATIVE mg/dL (0-1); WBC 26-50 /HPF (0-5)
[2019-06-14 14:14] LABS: RBC >101 /HPF (0-2)
[2019-06-14 14:20] VITALS: BP 108/81; PULSE 64; O2SAT 96
== END 2019-06-14 14:49 | disposition home or self-care (01) ==
LOC: ED 11:49
DX: N39.0 Urinary tract infection, site not specified (principal); R31.9 Hematuria, unspecified
CPT/HCPCS: 74176; 81001; 87077; 87086; 87186; 96360; 96365; 96374; 96375; 96376; 99284; J0696; J1170; J2405

== ENCOUNTER 2019-06-24 13:16 | Emergency (ER) | payer MEDICAID ==
[2019-06-24 13:38] VITALS: PULSE 94; O2SAT 100
[2019-06-24] MEDS ORDERED: Sodium Chloride 0.9% 1000 ML 1,000 ML IV STA (13:51)
[2019-06-24] MEDS ORDERED: Zofran 4 MG/2 ML VIAL IV ONE (13:51)
[2019-06-24] MEDS ORDERED: MORPHINE SULFATE 2 MG INJ IV ONE ×2 (13:51→14:56)
--- NOTE | 2019-06-24 14:02 | ERPHSYRPT ---
- History of Present Illness Time Seen by Provider: 06/24/19 13:30 Historian: patient Exam Limitations: no limitations Patient Subjective Stated Complaint: Pt states that she has had blood in her urine for 3 weeks and doesn't have a urologist appt until 07/02 due to that is when her insurance kicks in, pt states that she has pain in the left flank and left quadrants Triage Nursing Assessment: Pt came to the ER with her sister, pt states that she has been in pain for 3 weeks, hx of 1 kidney, vitals wnl, rates pain 9/10, hematuria, pain with and without palpatation to the left flank and left upper and lower quadrant, nausea, denies vomiting Physician History: Patient is a 44-year-old female presents to our ED with complaints of left side flank pain. Patient was in our ED on June 14. She was diagnosed with a kidney stone. Patient reports also being diagnosed with a UTI. Since she was discharged the pain has not resolved. Hematuria has continued. Pain is gone significantly worse over the past few days. No associated fever. No trauma. No nausea or vomiting. No diarrhea. Pain described as an ache that is localized. No radiation. Pain is primarily the left lower quadrant. No significant improving factors. Patient voices no other complaints at this time. Timing/Duration: week(s) Activities at Onset: none Quality: aching Abdominal Pain Onset Location: LLQ Pain Radiation: no radiation Severity of Pain-Max: moderate Severity of Pain-Current: mild Modifying Factors: Improves With: nothing Associated Symptoms: denies symptoms, fever/chills (Patient c/o chills, states "I feel sick" We will check her for the flu), No chest pain, No diaphoresis, No diarrhea Previous symptoms: no prior history Body Map: 1 - TTP and pain at [facility]. + Lt. CVA TTA Allergies/Adverse Reactions: Sulfa (Sulfonamide Antibiotics) Allergy (Intermediate, Verified 06/24/19 13:38) Vomiting bee venom protein (honey bee) Allergy (Verified 06/24/19 13:38) ketorolac [From Toradol] Allergy (Verified 06/24/19 13:38) methylprednisolone [From Solu-Medrol] Allergy (Verified 06/24/19 13:38) sumatriptan [From Imitrex] Allergy (Verified 06/24/19 14:20) tramadol Allergy (Verified 06/24/19 13:38) Home Medications: Gabapentin 300 mg PO TID 06/14/19 [History] Ciprofloxacin [Cipro 500 MG] 500 mg PO BID 06/24/19 [History] Hx Tetanus, Diphtheria Vaccination/Date Given: Yes Hx Influenza Vaccination/Date Given: No Hx Pneumococcal Vaccination/Date Given: No - Review of Systems Constitutional: No Fever, No Chills Eyes: No Symptoms Ears, Nose, & Throat: No Symptoms Respiratory: No Cough, No Dyspnea Cardiac: No Chest Pain, No Edema, No Syncope Abdominal/Gastrointestinal: No Abdominal Pain, No Nausea, No Vomiting, No Diarrhea Genitourinary Symptoms: No Dysuria Musculoskeletal: No Back Pain, No Neck Pain Skin: No Rash Neurological: No Dizziness, No Focal Weakness, No Sensory Changes Psychological: No Symptoms Endocrine: No Symptoms All Other Systems: Reviewed and Negative - Past Medical History Pertinent Past Medical History: Yes Neurological History: Migraines ENT History: No Pertinent History Cardiac History: No Pertinent History Respiratory History: No Pertinent History Endocrine Medical History: No Pertinent History Musculoskeletal History: Arthritis GI Medical History: Gallbladder Disease History: Other Psycho-Social History: Bipolar Female Reproductive Disorders: Other - Past Surgical History Past Surgical History: Yes Neuro Surgical History: No Pertinent History Cardiac: No Pertinent History Respiratory: No Pertinent History Gastrointestinal: Cholecystectomy Genitourinary: Kidney Surgery Musculoskeletal: No Pertinent History Female Surgical History: Hysterectomy Other Surgical History: skin cancer removed twice - Social History Smoking Status: Current every day smoker How long have you smoked: 20 YEARS Exposure to second hand smoke: Yes Drug Use: none Patient Lives Alone: No - Female History Hx Now: No (hysterectomy) - Nursing Vital Signs Nursing Vital Signs: Initial Vital Signs Temperature 97.9 F 06/24/19 13:22 Pulse Rate 94 H 06/24/19 13:22 Blood Pressure 118/78 06/24/19 13:22 O2 Sat by Pulse Oximetry 100 06/24/19 13:22 Pain Scale Pain Intensity 9 - Physical Exam General Appearance: no apparent distress, alert Eye Exam: PERRL/EOMI, eyes nml inspection Ears, Nose, Throat Exam: normal ENT inspection, pharynx normal, moist mucous membranes Neck Exam: normal inspection, non-tender, supple, full range of motion Respiratory Exam: normal breath sounds, lungs clear, No respiratory distress Cardiovascular Exam: regular rate/rhythm, normal heart sounds Gastrointestinal/Abdomen Exam: soft, normal bowel sounds, tenderness (Left CVA tenderness. Tenderness at left lower quadrant.), No distention, No mass, No guarding, No rebound Pelvic Exam: not done Rectal Exam: deferred Back Exam: normal inspection, normal range of motion, CVA tenderness, No vertebral tenderness Extremity Exam: normal inspection, normal range of motion, pelvis stable Neurologic Exam: alert, oriented x 3, cooperative, normal mood/affect, nml cerebellar function, sensation nml, No motor deficits Skin Exam: normal color, warm, dry SpO2 Interpretation: normal SpO2: 100 O2 Delivery: Room Air - CT Exams Abdomen/Pelvis CT Interpretation: Tele-radiologist Report (There is no obstructive uropathy. Nephrolithiasis observed.) Ordered Tests: Active Orders 24 hr Category Date Time Status IV Insertion STAT Care 06/24/19 13:51 Active ABDOMEN AND PELVIS W/0 CONTRAS [CT] Stat Exams 06/24/19 13:50 Completed CBC W DIFF Stat Lab 06/24/19 14:13 Completed CMP Stat Lab 06/24/19 14:13 Completed CULTURE,URINE Stat Lab 06/24/19 14:10 Received UA W/RFX UR CULTURE Stat Lab 06/24/19 14:10 Completed Medication Summary Discontinued Medications Generic Name Dose Route Start Last Admin Trade Name Freq PRN Reason Stop Dose Admin Sodium Chloride 1,000 mls @ 999 mls/hr 06/24/19 13:51 06/24/19 15:16 Sodium Chloride 0.9% 1000 Ml IV 06/24/19 14:51 Infused .Q1H1M STA Infusion Sodium Chloride Confirm 06/24/19 14:09 Sodium Chloride 0.9% 1000 Ml Administered 06/24/19 14:10 Dose 1,000 mls @ ud .ROUTE .STK-MED ONE Morphine Sulfate 2 mg 06/24/19 13:51 06/24/19 14:14 Morphine Sulfate 2 Mg Inj IV 06/24/19 13:52 2 mg STAT ONE Administration Morphine Sulfate Confirm 06/24/19 14:08 Morphine Sulfate 2 Mg Inj Administered 06/24/19 14:09 Dose 2 mg .ROUTE .STK-MED ONE Morphine Sulfate 2 mg 06/24/19 14:56 06/24/19 15:00 Morphine Sulfate 2 Mg Inj IV 06/24/19 14:57 2 mg STAT ONE Administration Morphine Sulfate Confirm 06/24/19 14:59 Morphine Sulfate 2 Mg Inj Administered 06/24/19 15:00 Dose 2 mg .ROUTE .STK-MED ONE Ondansetron HCl 4 mg 06/24/19 13:51 06/24/19 14:15 Zofran 4 Mg/2 Ml Vial IV 06/24/19 13:52 4 mg STAT ONE Administration Ondansetron HCl Confirm 06/24/19 14:08 Zofran 4 Mg/2 Ml Vial Administered 06/24/19 14:09 Dose 4 mg .ROUTE .STK-MED ONE Lab/Rad Data: Laboratory Result Diagrams 06/24/19 14:13 06/24/19 14:13 Laboratory Results 06/24/19 06/24/19 06/24/19 Range/Units 14:13 14:13 14:13 WBC 9.7 (4.0-10.5) K/mm3 RBC 4.83 (4.1-5.4) M/mm3 Hgb 15.4 (12.0-16.0) gm/dl Hct 46.2 (35-47) % MCV 95.7 (78-100) fl MCH 31.9 (26-32) pg MCHC 33.3 (32-36) g/dl RDW 13.6 (11.5-14.0) % Plt Count 413 (150-450) K/mm3 MPV 9.0 (7.5-11.0) fl Gran % 73.5 H (36.0-66.0) % Eos # (Auto) 0.20 (0-0.5) Absolute Lymphs (auto) 1.78 (1.0-4.6) Absolute Monos (auto) 0.57 (0.0-1.3) Lymphocytes % 18.4 L (24.0-44.0) % Monocytes % 5.9 (0.0-12.0) % Eosinophils % 2.1 (0.00-5.0) % Basophils % 0.1 (0.0-0.4) % Absolute Granulocytes 7.09 H (1.4-6.9) Basophils # 0.01 (0-0.4) Sodium 142 (137-145) mmol/L Potassium 3.7 (3.5-5.1) mmol/L Chloride 108 H (98-107) mmol/L Carbon Dioxide 20 L (22-30) mmol/L Anion Gap 17.9 H (5-15) MEQ/L BUN 21 H (7-17) mg/dL Creatinine 0.84 (0.52-1.04) mg/dL Estimated GFR > 60.0 ML/MIN Glucose 110 H (74-106) mg/dL Calcium 9.8 (8.4-10.2) mg/dL Total Bilirubin 0.40 (0.2-1.3) mg/dL AST 29 (14-36) U/L ALT 22 (0-35) U/L Alkaline Phosphatase 107 (38-126) U/L Serum Total Protein 8.4 H (6.3-8.2) g/dL Albumin 4.6 (3.5-5.0) g/dL Urine Color (YELLOW) Urine Appearance (CLEAR) Urine pH (5-6) Ur Specific [place] (1.005-1.025) Urine Protein (Negative) Urine Ketones (NEGATIVE) Urine Blood (0-5) Ed/ul Urine Nitrite (NEGATIVE) Urine Bilirubin (NEGATIVE) Urine Urobilinogen (0-1) mg/dL Ur Leukocyte Esterase (NEGATIVE) Urine WBC (Auto) (0-5) /HPF Urine RBC (Auto) (0-2) /HPF U Epithel Cells (Auto) (FEW) /HPF Urine Bacteria (Auto) (NEGATIVE) /HPF Urine Mucus (Auto) (NEGATIVE) /HPF Urine Culture Reflexed (NO) Urine Glucose (NEGATIVE) mg/dL Influenza Type A Ag NEGATIVE (NEGATIVE) Influenza Type B Ag NEGATIVE (NEGATIVE) RSV (PCR) NEGATIVE (Negative) 06/24/19 Range/Units 14:10 WBC (4.0-10.5) K/mm3 RBC (4.1-5.4) M/mm3 Hgb (12.0-16.0) gm/dl Hct (35-47) % MCV (78-100) fl MCH (26-32) pg MCHC (32-36) g/dl RDW (11.5-14.0) % Plt Count (150-450) K/mm3 MPV (7.5-11.0) fl Gran % (36.0-66.0) % Eos # (Auto) (0-0.5) Absolute Lymphs (auto) (1.0-4.6) Absolute Monos (auto) (0.0-1.3) Lymphocytes % (24.0-44.0) % Monocytes % (0.0-12.0) % Eosinophils % (0.00-5.0) % Basophils % (0.0-0.4) % Absolute Granulocytes (1.4-6.9) Basophils # (0-0.4) Sodium (137-145) mmol/L Potassium (3.5-5.1) mmol/L Chloride (98-107) mmol/L Carbon Dioxide (22-30) mmol/L Anion Gap (5-15) MEQ/L BUN (7-17) mg/dL Creatinine (0.52-1.04) mg/dL Estimated GFR ML/MIN Glucose (74-106) mg/dL Calcium (8.4-10.2) mg/dL Total Bilirubin (0.2-1.3) mg/dL AST (14-36) U/L ALT (0-35) U/L Alkaline Phosphatase (38-126) U/L Serum Total Protein (6.3-8.2) g/dL Albumin (3.5-5.0) g/dL Urine Color YELLOW (YELLOW) Urine Appearance SLIGHTLY CLOUDY (CLEAR) Urine pH 6.0 (5-6) Ur Specific [place] 1.013 (1.005-1.025) Urine Protein 30 (Negative) Urine Ketones NEGATIVE (NEGATIVE) Urine Blood LARGE (0-5) Ed/ul Urine Nitrite NEGATIVE (NEGATIVE) Urine Bilirubin NEGATIVE (NEGATIVE) Urine Urobilinogen NEGATIVE (0-1) mg/dL Ur Leukocyte Esterase NEGATIVE (NEGATIVE) Urine WBC (Auto) 16-25 (0-5) /HPF Urine RBC (Auto) >101 (0-2) /HPF U Epithel Cells (Auto) RARE (FEW) /HPF Urine Bacteria (Auto) FEW (NEGATIVE) /HPF Urine Mucus (Auto) SLIGHT (NEGATIVE) /HPF Urine Culture Reflexed YES (NO) Urine Glucose NEGATIVE (NEGATIVE) mg/dL Influenza Type A Ag (NEGATIVE) Influenza Type B Ag (NEGATIVE) RSV (PCR) (Negative) - Progress Progress Note: 06/24/19 17:09 Labs suggestive of dehydration. Marginal increases in anion gap and bicarb. Patient reassessed. She feels much better after fluid bolus. Case discussed with Dr. Corrigan. Advised Macrodantin. How this was prescribed. However they advised us that patient had an adverse reaction to Macrodantin. Based on sensitivities we changed medication to Levaquin. We also called in a prescription for Phenergan for nausea and vomiting. Discussed with Dr.: Other (Spoke to Dr. Gee our patient's urologist. He advised a prescription for Macrodantin) Will see patient in: office (Patient to call Dr. Kelton cabrera today to schedule a follow-up appointment.) Counseled pt/family regarding: lab results, diagnosis, need for follow-up, rad results - Departure Departure Disposition: Home Clinical Impression: UTI (urinary tract infection) with pyuria, Flank pain, Nephrolithiasis, Dehydration, Hematuria Condition: Stable Critical Care Time: No Referrals: GASTON CAMPUZANO [Primary Care Provider] - Additional Instructions: Discharge/Care Plan NATHAN MENDOZA was seen on 06/24/19 in the Emergency Room. The patient was counseled regarding Diagnosis,Lab results, Imaging studies, need for follow up and when to return to the Emergency Room. Prescriptions given: Discharge Note I have spoken with the patient and/or caregivers. I have explained the patient' s condition, diagnosis and treatment plan based on the information available to me at this time. I have answered the patient's and/or caregiver's questions and addressed any concerns. The patient and/or caregivers have as good understanding of the patient's diagnosis, condition and treatment plan as can be expected at this point. The vital signs have been stable. The patient's condition is stable and appropriate for discharge from the emergency department. The patient will pursue further outpatient evaluation with the primary care physician or other designated or consulting physician as outlined in the discharge instructions. The patient and/or caregivers are agreeable to this plan of care and follow-up instructions have been explained in detail. The patient and/or caregivers have received these instruction. The patient/and or caregivers are aware that any significant change in condition or worsening of symptoms should prompt an immediate return to this or the closest emergency department or call 911. Prescriptions: Nitrofurantoin Macrocrystal [Macrodantin] 100 mg PO BID 7 Days #14 capsule
[2019-06-24] MEDS ORDERED: MORPHINE SULFATE 2 MG INJ ONE ×2 (14:08→14:59)
[2019-06-24] MEDS ORDERED: Zofran 4 MG/2 ML VIAL ONE (14:08)
[2019-06-24] MEDS ORDERED: Sodium Chloride 0.9% 1000 ML 1,000 ML ONE (14:09)
[2019-06-24 14:29] LABS: Absolute Neutrophil Ct (ANC) 7.09 (1.4-6.9); BASOPHIL % 0.1 % (0.0-0.4); Basophil (Absolute #) 0.01 (0-0.4); Eosinophil % 2.1 % (0.00-5.0); Hematocrit 46.2 % (35-47); Hemoglobin 15.4 gm/dl (12.0-16.0); Lymphocyte (Absolute #) 1.78 (1.0-4.6); Lymphocytes % 18.4 % (24.0-44.0); Mean Cell Volume 95.7 fl (78-100); Mean Corpuscular Hemoglobin 31.9 pg (26-32); Mean Corpuscular Hgb Concent. 33.3 g/dl (32-36); Monocyte (Absolute #) 0.57 (0.0-1.3); Monocytes % 5.9 % (0.0-12.0); Neutrophil % 73.5 % (36.0-66.0); Platelet Count 413 K/mm3 (150-450); Red Blood Count 4.83 M/mm3 (4.1-5.4); Red Cell Distribution Width 13.6 % (11.5-14.0); White Blood Count 9.7 K/mm3 (4.0-10.5)
[2019-06-24 14:36] LABS: Appearance SLIGHTLY CLOUDY (CLEAR); Bacteria FEW /HPF (NEGATIVE); Bilirubin NEGATIVE (NEGATIVE); Blood LARGE Ery/ul (0-5); Epithelial Cells RARE /HPF (FEW); Glucose NEGATIVE (NEGATIVE); Ketones NEGATIVE (NEGATIVE); Leukocyte Esterase NEGATIVE (NEGATIVE); Mucus SLIGHT /HPF (NEGATIVE); Nitrite NEGATIVE (NEGATIVE); Protein,Urine Dip 30 (Negative); RBC >101 /HPF (0-2); Specific Gravity 1.013 (1.005-1.025); Urobilinogen NEGATIVE mg/dL (0-1)
[2019-06-24 14:39] LABS: ALBUMIN 4.6 g/dL (3.5-5.0); ALKALINE PHOSPHATASE 107 U/L (38-126); ANION GAP 17.9 MEQ/L (5-15); BLOOD UREA NITROGEN 21 mg/dL (7-17); CHLORIDE 108 mmol/L (98-107); Calcium 9.8 mg/dL (8.4-10.2); Carbon Dioxide 20 mmol/L (22-30); Creatinine 1 0.84 mg/dL (0.52-1.04); Glucose 110 mg/dL (74-106); Potassium 3.7 mmol/L (3.5-5.1); SGOT/AST 29 U/L (14-36); SGPT/ALT 22 U/L (0-35); SODIUM 142 mmol/L (137-145); Total Protein 8.4 g/dL (6.3-8.2)
--- NOTE | 2019-06-24 14:49 | XRAY ---
Indication: Left flank pain. Painful urination. Congenital absent right kidney. Multiple contiguous axial images obtained through the abdomen and pelvis without contrast as ordered. Comparison: April 14, 2019, June 03 and June 14, 2019. Lung bases remain clear with stable right posterior gutter bleb. Heart is not enlarged. Noncontrasted stomach and bowel loops remain nonobstructed with normal appendix. No free fluid/air. Fecal stasis has cleared. Left kidney demonstrates 2 stable lower calyx nonobstructing micro-calculi and mid pole cortical cyst. Also stable congenitally absent right kidney, calcified splenic granulomas, cholecystectomy, and duplication of the IVC. Remaining liver, pancreas, spleen, adrenal glands, left kidney, left ureter, and urinary bladder appear unremarkable for noncontrast exam. Stable minimal aortoiliac calcifications without AAA. Impression: 1. Continued stable nonobstructing left renal micro-calculi, left renal cyst, congenitally absent right kidney, and duplication of the IVC. 2. Remaining CT abdomen/pelvis without contrast exam is again negative.
[2019-06-24 15:05] VITALS: BP 113/76
[2019-06-24 15:49] LABS: INFLUENZA A NEGATIVE (NEGATIVE); INFLUENZA B NEGATIVE (NEGATIVE); RESPIRATORY SYNCTIAL VIRUS NEGATIVE (Negative)
== END 2019-06-24 16:00 | disposition home or self-care (01) ==
LOC: ED 13:16
DX: N39.0 Urinary tract infection, site not specified (principal); R82.81 Pyuria; R10.9 Unspecified abdominal pain; N20.0 Calculus of kidney; N10 Acute pyelonephritis; E86.0 Dehydration; R31.9 Hematuria, unspecified
CPT/HCPCS: 36000; 36415; 74176; 80053; 81001; 85025; 87086; 87631; 96374; 96375; 96376; 99284; J2270; J2405

== ENCOUNTER 2019-07-22 09:51 | Emergency (ER) | payer OTHER ==
[2019-07-22 10:15] VITALS: PULSE 90; O2SAT 98
[2019-07-22] MEDS ORDERED: Hydromorphone 1 mg/ml Ampule ONE (10:17)
[2019-07-22] MEDS ORDERED: Zofran 4 MG/2 ML VIAL ONE (10:17)
[2019-07-22] MEDS ORDERED: ZOFRAN ODT 4 MG ONE (10:18)
[2019-07-22] MEDS: Hydromorphone 1 mg/ml Ampule IM ONE (10:44)
[2019-07-22] MEDS: ZOFRAN ODT 4 MG PO ONE (10:44)
--- NOTE | 2019-07-22 10:52 | XRAY ---
Indication: Pain following fall 3 days ago. Comparison: None AP pelvis and 2 views of the left and right hip demonstrate small right superior acetabulum bone island and a few pelvic phleboliths. No other bony, articular, or soft tissue abnormalities.
[2019-07-22 11:06] VITALS: BP 114/79
--- NOTE | 2019-07-22 11:09 | ERPHSYRPT ---
- History of Present Illness Time Seen by Provider: 07/22/19 10:10 Exam Limitations: no limitations Patient Subjective Stated Complaint: Back pain Triage Nursing Assessment: Patient ambulated back to ED and transferred self to bed. Patient A+O X3. Patient's skin pink, warm and dry. Patient complains of lower back pain and right hip pain after her dog caused her to fall a couple of days ago. Patient complains of constant aching pain 8/10. No visible bruising or injuries noted. Physician History: Patient complains of pain in the lower back and right hip after a fall 3 days ago. She says the pain is getting worse she has a history of kidney stone she has a right hip problem is awaiting care by Dr. Reyes she also complains of fibromyalgia and migraines. Timing/Duration: day(s) (3), worse Method of Injury: fall Quality: radiating Back Pain Location: lumbar spine Back Pain Radiation: buttocks Severity of Pain-Max: moderate Severity of Pain-Current: moderate Modifying Factors: Improves With: nothing Associated Symptoms: No urinary incontinence, No loss of bowel control, No problems urinating Previous symptoms: same symptoms as today Allergies/Adverse Reactions: Sulfa (Sulfonamide Antibiotics) Allergy (Intermediate, Verified 07/22/19 10:03) Vomiting bee venom protein (honey bee) Allergy (Verified 07/22/19 10:03) ketorolac [From Toradol] Allergy (Verified 07/22/19 10:03) methylprednisolone [From Solu-Medrol] Allergy (Verified 07/22/19 10:03) sumatriptan [From Imitrex] Allergy (Verified 07/22/19 10:03) tramadol Allergy (Verified 07/22/19 10:03) Home Medications: Gabapentin 600 mg PO QID 06/14/19 [History] Cyclobenzaprine HCl [Flexeril] 1 tab PO HS 07/22/19 [History] Hx Tetanus, Diphtheria Vaccination/Date Given: Yes Hx Influenza Vaccination/Date Given: No Hx Pneumococcal Vaccination/Date Given: No Immunizations Up to Date: Yes - Review of Systems Constitutional: No Fever, No Chills Eyes: No Symptoms Ears, Nose, & Throat: No Symptoms Respiratory: No Cough, No Dyspnea Cardiac: No Chest Pain, No Edema, No Syncope Abdominal/Gastrointestinal: No Abdominal Pain, No Nausea, No Vomiting, No Diarrhea Genitourinary Symptoms: No Dysuria Musculoskeletal: Fall, No Neck Pain Skin: No Rash Neurological: No Dizziness, No Focal Weakness, No Sensory Changes Psychological: No Symptoms Endocrine: No Symptoms All Other Systems: Reviewed and Negative - Past Medical History Pertinent Past Medical History: Yes Neurological History: Migraines ENT History: No Pertinent History Cardiac History: No Pertinent History Respiratory History: No Pertinent History Endocrine Medical History: No Pertinent History Musculoskeletal History: Arthritis GI Medical History: Gallbladder Disease History: Other Psycho-Social History: Bipolar Female Reproductive Disorders: Other - Past Surgical History Past Surgical History: Yes Neuro Surgical History: No Pertinent History Cardiac: No Pertinent History Respiratory: No Pertinent History Gastrointestinal: Cholecystectomy Genitourinary: Kidney Surgery Musculoskeletal: No Pertinent History Female Surgical History: Hysterectomy Other Surgical History: skin cancer removed twice - Social History Smoking Status: Current every day smoker How long have you smoked: 20 YEARS Exposure to second hand smoke: Yes Drug Use: none Patient Lives Alone: No - Female History Hx Now: No - Nursing Vital Signs Nursing Vital Signs: Initial Vital Signs Temperature 98.1 F 07/22/19 10:05 Pulse Rate 90 07/22/19 10:05 Respiratory Rate 19 07/22/19 10:05 Blood Pressure 121/83 07/22/19 10:05 O2 Sat by Pulse Oximetry 98 07/22/19 10:05 Pain Scale Pain Intensity 8 - Physical Exam General Appearance: no apparent distress, mild distress, alert Eye Exam: PERRL/EOMI, eyes nml inspection Neck Exam: normal inspection, non-tender, supple, full range of motion, No meningismus, No midline tenderness Respiratory Exam: normal breath sounds, lungs clear, No respiratory distress Cardiovascular Exam: regular rate/rhythm, normal heart sounds Gastrointestinal Exam: soft, No tenderness, No mass Back Exam: vertebral tenderness, decreased range of motion Extremity Exam: normal inspection, limited range of motion (Hips), No calf tenderness, No pedal edema Peripheral Pulses: carotid (R): 2+, carotid (L): 2+ Neurologic Exam: alert, oriented x 3, cooperative, crime scene photographer II-XII nml as tested, normal mood/affect, nml station & gait, sensation nml, No motor deficits Skin Exam: normal color, warm, dry, No rash Lymphatic Exam: No adenopathy SpO2 Interpretation: normal SpO2: 98 O2 Delivery: Room Air - Course Nursing assessment & vital signs reviewed: Yes Ordered Tests: Active Orders 24 hr Category Date Time Status HIPS DWAYNE(2V) INCL PEL IF DONE Stat Exams 07/22/19 10:39 Completed LUMBAR LIMITED (2 OR 3 VIEWS) Stat Exams 07/22/19 Ordered Medication Summary Discontinued Medications Generic Name Dose Route Start Last Admin Trade Name Yehuda PRN Reason Stop Dose Admin Hydromorphone HCl 1 mg 07/22/19 10:11 07/22/19 10:44 Hydromorphone 1 Mg/Ml Ampule IM 07/22/19 10:12 1 mg STAT ONE Administration Hydromorphone HCl Confirm 07/22/19 10:17 Hydromorphone 1 Mg/Ml Ampule Administered 07/22/19 10:18 Dose 1 mg .ROUTE .STK-MED ONE Ondansetron HCl 4 mg 07/22/19 10:10 07/22/19 10:44 Zofran Odt 4 Mg PO 07/22/19 10:11 4 mg STAT ONE Administration Ondansetron HCl Confirm 07/22/19 10:17 Zofran 4 Mg/2 Ml Vial Administered 07/22/19 10:18 Dose 4 mg .ROUTE .STK-MED ONE Ondansetron HCl Confirm 07/22/19 10:18 Zofran Odt 4 Mg Administered 07/22/19 10:19 Dose 4 mg .ROUTE .STK-MED ONE - Progress Progress: unchanged - Departure Departure Disposition: Home Clinical Impression: Lumbar radiculopathy Condition: Stable Critical Care Time: No Referrals: GASTON CAMPUZANO [Primary Care Provider] - Instructions: Low Back Pain (DC), Sciatica (DC) Prescriptions: Prednisone 20 mg [Deltasone 20 mg] 20 mg PO BID 3 Days #6 tablet
--- NOTE | 2019-07-23 09:46 | XRAY ---
Indication: Pain following fall 3 days ago. Comparison: None 3 views of the lumbar spine demonstrates 5 lumbar vertebral segments with L5-S1 degenerative disc disease, mild bilateral L5-S1 degenerative facet hypertrophy, minimal aortic calcifications, and cholecystectomy clips. No other bony, articular, or soft tissue abnormalities. Pelvis/hips reported separately.
== END 2019-07-22 11:20 | disposition home or self-care (01) ==
LOC: ED 09:51
DX: M54.16 Radiculopathy, lumbar region (principal); M54.5 Low back pain; M25.551 Pain in right hip; W01.0XXA Fall on same level from slipping, tripping and stumbling without subsequent striking against object, initial encounter; Z79.899 Other long term (current) drug therapy
CPT/HCPCS: 72100; 73521; 96372; 99284; J1170; J2405; Q0162

== ENCOUNTER 2019-08-08 10:16 | Emergency (ER) | payer OTHER ==
[2019-08-08 10:37] VITALS: BP 109/81; PULSE 80; O2SAT 100
[2019-08-08] MEDS ORDERED: Sodium Chloride 0.9% 1000 ML 1,000 ML IV STA ×2 (10:45→11:54)
[2019-08-08] MEDS ORDERED: Zofran 4 MG/2 ML VIAL IV ONE (10:45)
[2019-08-08] MEDS ORDERED: SUBLIMAZE 100 MCG/2 ML IV ONE (10:45)
--- NOTE | 2019-08-08 10:49 | ERPHSYRPT ---
- History of Present Illness Time Seen by Provider: 08/08/19 10:47 Historian: patient Exam Limitations: no limitations Patient Subjective Stated Complaint: Pt began having left flank pain yesterday with hematuria, pain radiates to the LLQ, pt has extensive hx of kidney stones with surgery just last month for removal, pt only has the left kidney Triage Nursing Assessment: Pt dropped off by her , pt crying due to an arguement with , pain to the left flank and LLQ with and w/o palpatation , hematuria, vitals wnl, rates pain 01/26 Physician History: Pt began having left flank pain yesterday with hematuria, pain radiates to the LLQ, pt has extensive hx of kidney stones with surgery just last month for removal, pt only has the left kidney. No fever, chills. C/O nausea Timing/Duration: yesterday Activities at Onset: none Abdominal Pain Onset Location: flank (left) Pain Radiation: LLQ Severity of Pain-Max: moderate Severity of Pain-Current: severe Modifying Factors: Improves With: nothing Associated Symptoms: nausea, vomiting Allergies/Adverse Reactions: Sulfa (Sulfonamide Antibiotics) Allergy (Intermediate, Verified 08/08/19 10:37) Vomiting bee venom protein (honey bee) Allergy (Verified 08/08/19 10:37) ketorolac [From Toradol] Allergy (Verified 08/08/19 10:37) methylprednisolone [From Solu-Medrol] Allergy (Verified 08/08/19 10:37) sumatriptan [From Imitrex] Allergy (Verified 08/08/19 10:37) tramadol Allergy (Verified 08/08/19 10:37) Home Medications: Gabapentin 600 mg PO QID 06/14/19 [History] Butalb/Acetaminophen/Caffeine [Omavno-Jsjnjyej-Wfxl 50-325-40] 1 each PO Q46H PRN 08/08/19 [History] Hx Tetanus, Diphtheria Vaccination/Date Given: Yes Hx Influenza Vaccination/Date Given: No Hx Pneumococcal Vaccination/Date Given: No Travel Risk - International Travel Have you traveled outside of the country in past 3 weeks: No Have you or anyone close to you been diagnosed with or: No Do your reside in a community with a known COVID-19 case?: No - Coronavirus Screening Has patient experienced Coronavirus symptoms: No - Review of Systems Constitutional: No Fever, No Chills Eyes: No Symptoms Ears, Nose, & Throat: No Symptoms Respiratory: No Cough, No Dyspnea Cardiac: No Chest Pain, No Edema, No Syncope Abdominal/Gastrointestinal: Abdominal Pain, Nausea, No Vomiting, No Diarrhea Genitourinary Symptoms: No Dysuria Musculoskeletal: No Back Pain, No Neck Pain Skin: No Rash Neurological: No Dizziness, No Focal Weakness, No Sensory Changes Psychological: No Symptoms Endocrine: No Symptoms All Other Systems: Reviewed and Negative - Past Medical History Pertinent Past Medical History: Yes Neurological History: Migraines ENT History: No Pertinent History Cardiac History: No Pertinent History Respiratory History: No Pertinent History Endocrine Medical History: No Pertinent History Musculoskeletal History: Arthritis GI Medical History: Gallbladder Disease History: Other Psycho-Social History: Bipolar Female Reproductive Disorders: Other - Past Surgical History Past Surgical History: Yes Neuro Surgical History: No Pertinent History Cardiac: No Pertinent History Respiratory: No Pertinent History Gastrointestinal: Cholecystectomy Genitourinary: Kidney Surgery Musculoskeletal: No Pertinent History Female Surgical History: Hysterectomy Other Surgical History: skin cancer removed twice - Social History Smoking Status: Current every day smoker How long have you smoked: 20 YEARS Exposure to second hand smoke: Yes Drug Use: none Patient Lives Alone: No - Female History Hx Now: No - Nursing Vital Signs Nursing Vital Signs: Initial Vital Signs Temperature 97.4 F 08/08/19 10:17 Pulse Rate 80 08/08/19 10:17 Blood Pressure 109/81 08/08/19 10:17 O2 Sat by Pulse Oximetry 100 08/08/19 10:17 Pain Scale Pain Intensity 6 - Physical Exam General Appearance: no apparent distress, alert Eye Exam: PERRL/EOMI, eyes nml inspection Ears, Nose, Throat Exam: normal ENT inspection, pharynx normal, moist mucous membranes Neck Exam: normal inspection, non-tender, supple, full range of motion Respiratory Exam: normal breath sounds, lungs clear, No respiratory distress Cardiovascular Exam: regular rate/rhythm, normal heart sounds Gastrointestinal/Abdomen Exam: soft, tenderness (left CVA and Flank area), No mass Pelvic Exam: not done Rectal Exam: deferred Back Exam: normal inspection, normal range of motion, No CVA tenderness, No vertebral tenderness Extremity Exam: normal inspection, normal range of motion, pelvis stable Neurologic Exam: alert, oriented x 3, cooperative, normal mood/affect, nml cerebellar function, sensation nml, No motor deficits Skin Exam: normal color, warm, dry SpO2: 100 - Course Nursing assessment & vital signs reviewed: Yes - CT Exams Abdomen/Pelvis CT Interpretation: Tele-radiologist Report (1 mm left renal stone) Ordered Tests: Active Orders 24 hr Category Date Time Status ABDOMEN AND PELVIS W/0 CONTRAS [CT] Stat Exams 08/08/19 10:46 Taken CBC W DIFF Stat Lab 08/08/19 11:12 Completed CMP Stat Lab 08/08/19 11:12 Completed CULTURE,URINE Stat Lab 08/08/19 10:51 Received UA W/RFX UR CULTURE Stat Lab 08/08/19 10:51 Completed Medication Summary Generic Name Dose Route Start Last Admin Trade Name Freq PRN Reason Stop Dose Admin Sodium Chloride 1,000 mls @ 999 mls/hr 08/08/19 11:54 08/08/19 12:47 Sodium Chloride 0.9% 1000 Ml IV 08/08/19 12:54 999 mls/hr .Q1H1M STA Administration Discontinued Medications Generic Name Dose Route Start Last Admin Trade Name Freq PRN Reason Stop Dose Admin Fentanyl Citrate 50 mcg 08/08/19 10:45 08/08/19 11:01 Sublimaze 100 Mcg/2 Ml IV 08/08/19 10:46 50 mcg STAT ONE Administration Fentanyl Citrate Confirm 08/08/19 10:59 Sublimaze 100 Mcg/2 Ml Administered 08/08/19 11:00 Dose 100 mcg .ROUTE .STK-MED ONE Sodium Chloride 1,000 mls @ 999 mls/hr 08/08/19 10:45 08/08/19 12:07 Sodium Chloride 0.9% 1000 Ml IV 08/08/19 11:45 Infused .Q1H1M STA Infusion Sodium Chloride Confirm 08/08/19 10:59 Sodium Chloride 0.9% 1000 Ml Administered 08/08/19 11:00 Dose 1,000 mls @ ud .ROUTE .STK-MED ONE Ceftriaxone Sodium/Dextrose 1 g in 50 mls @ 100 mls/hr 08/08/19 11:19 12:47 Rocephin 1 Gm-D5w 50 Ml Bag IV 08/08/19 11:48 100 mls/hr STAT STA 100 mls/hr Administration Ceftriaxone Sodium/Dextrose Confirm 08/08/19 11:49 Rocephin 1 Gm-D5w 50 Ml Bag Administered 08/08/19 11:50 Dose 1 g in 50 mls @ ud IV .STK-MED ONE Sodium Chloride Confirm 08/08/19 12:30 Sodium Chloride 0.9% 1000 Ml Administered 08/08/19 12:31 Dose 1,000 mls @ ud .ROUTE .STK-MED ONE Ondansetron HCl 4 mg 08/08/19 10:45 08/08/19 11:01 Zofran 4 Mg/2 Ml Vial IV 08/08/19 10:46 4 mg STAT ONE Administration Ondansetron HCl Confirm 08/08/19 10:59 Zofran 4 Mg/2 Ml Vial Administered 08/08/19 11:00 Dose 4 mg .ROUTE .STK-MED ONE Orphenadrine Citrate 60 mg 08/08/19 11:52 08/08/19 12:48 Norflex 60 Mg/2 Ml IM 08/08/19 11:53 60 mg STAT ONE Administration Orphenadrine Citrate Confirm 08/08/19 12:30 Norflex 60 Mg/2 Ml Administered 08/08/19 12:31 Dose 60 mg .ROUTE .STK-MED ONE Promethazine HCl 25 mg 08/08/19 12:16 Phenergan 25 Mg Inj IM 08/08/19 12:17 STAT ONE Promethazine HCl Confirm 08/08/19 12:30 Phenergan 25 Mg Inj Administered 08/08/19 12:31 Dose 25 mg .ROUTE .STK-MED ONE Tamsulosin HCl 0.4 mg 08/08/19 11:52 08/08/19 12:48 Flomax 0.4 Mg PO 08/08/19 11:53 0.4 mg STAT STA Administration Tamsulosin HCl Confirm 08/08/19 12:30 Flomax 0.4 Mg Administered 08/08/19 12:31 Dose 0.4 mg .ROUTE .STK-MED ONE Lab/Rad Data: Laboratory Result Diagrams 08/08/19 11:12 08/08/19 11:12 Laboratory Results 08/08/19 08/08/19 08/08/19 Range/Units 11:12 11:12 10:51 WBC 9.6 (4.0-10.5) K/mm3 RBC 4.23 (4.1-5.4) M/mm3 Hgb 13.9 (12.0-16.0) gm/dl Hct 41.3 (35-47) % MCV 97.6 (78-100) fl MCH 32.9 H (26-32) pg MCHC 33.7 (32-36) g/dl RDW 13.4 (11.5-14.0) % Plt Count 344 (150-450) K/mm3 MPV 9.4 (7.5-11.0) fl Gran % 70.9 H (36.0-66.0) % Eos # (Auto) 0.55 H (0-0.5) Absolute Lymphs (auto) 1.78 (1.0-4.6) Absolute Monos (auto) 0.44 (0.0-1.3) Lymphocytes % 18.6 L (24.0-44.0) % Monocytes % 4.6 (0.0-12.0) % Eosinophils % 5.8 H (0.00-5.0) % Basophils % 0.1 (0.0-0.4) % Absolute Granulocytes 6.77 (1.4-6.9) Basophils # 0.01 (0-0.4) Sodium 145 (137-145) mmol/L Potassium 3.6 (3.5-5.1) mmol/L Chloride 115 H (98-107) mmol/L Carbon Dioxide 21 L (22-30) mmol/L Anion Gap 12.5 (5-15) MEQ/L BUN 14 (7-17) mg/dL Creatinine 0.70 (0.52-1.04) mg/dL Estimated GFR > 60.0 ML/MIN Glucose 92 (74-106) mg/dL Calcium 9.4 (8.4-10.2) mg/dL Total Bilirubin 0.40 (0.2-1.3) mg/dL AST 29 (14-36) U/L ALT 29 (0-35) U/L Alkaline Phosphatase 111 (38-126) U/L Serum Total Protein 7.8 (6.3-8.2) g/dL Albumin 4.4 (3.5-5.0) g/dL Urine Color RED (YELLOW) Urine Appearance SLIGHTLY CLOUDY (CLEAR) Urine pH 5.0 (5-6) Ur Specific [place] 1.017 (1.005-1.025) Urine Protein 30 (Negative) Urine Ketones NEGATIVE (NEGATIVE) Urine Blood LARGE (0-5) Ed/ul Urine Nitrite NEGATIVE (NEGATIVE) Urine Bilirubin NEGATIVE (NEGATIVE) Urine Urobilinogen NEGATIVE (0-1) mg/dL Ur Leukocyte Esterase SMALL (NEGATIVE) Urine WBC (Auto) 26-50 (0-5) /HPF Urine RBC (Auto) >101 (0-2) /HPF U Epithel Cells (Auto) FEW (FEW) /HPF Urine Bacteria (Auto) MODERATE (NEGATIVE) /HPF Urine Culture Reflexed YES (NO) Urine Glucose NEGATIVE (NEGATIVE) mg/dL - Progress Progress: improved, pain not gone completely Counseled pt/family regarding: lab results, diagnosis, need for follow-up, rad results - Departure Departure Disposition: Home Clinical Impression: Ureterolithiasis, Flank pain, Nephrolithiasis Hematuria Qualifiers: Hematuria type: gross Qualified Code(s): R31.0 - Gross hematuria Condition: Stable Critical Care Time: Yes Critical Care Time(excluding separately billable procedures): Critical 30-74 mins Referrals: GASTON CAMPUZANO [Primary Care Provider] - Instructions: Kidney Stones (DC), Flank Pain Additional Instructions: Discharge/Care Plan NATHAN MENDOZA was seen on 08/08/19 in the Emergency Room. The patient was counseled regarding Diagnosis,Lab results, Imaging studies, need for follow up and when to return to the Emergency Room. Prescriptions given: Discharge Note I have spoken with the patient and/or caregivers. I have explained the patient' s condition, diagnosis and treatment plan based on the information available to me at this time. I have answered the patient's and/or caregiver's questions and addressed any concerns. The patient and/or caregivers have as good understanding of the patient's diagnosis, condition and treatment plan as can be expected at this point. The vital signs have been stable. The patient's condition is stable and appropriate for discharge from the emergency department. The patient will pursue further outpatient evaluation with the primary care physician or other designated or consulting physician as outlined in the discharge instructions. The patient and/or caregivers are agreeable to this plan of care and follow-up instructions have been explained in detail. The patient and/or caregivers have received these instruction. The patient/and or caregivers are aware that any significant change in condition or worsening of symptoms should prompt an immediate return to this or the closest emergency department or call 911. NATHAN MENDOZA was seen on 08/08/19 n the Emergency Room. At that time you were treated for an emergent condition, during your visit Laboratory, Radiology and/ or other procedures may have been ordered. It is very important that you follow- up with your Primary Care Physician GASTON CAMPUZANO within the next 24-48 hours to review your Emergency Room visit and the final results of testing that was ordered. Some test results such as Urine Cultures, Blood Cultures, and other cultures if ordered will not be finalized for 24-48 hours. If you do not have a Primary Care Provider please call the medical records department at [phone] to obtain a copy of your results or you may sign into our patient portal to obtain these results by visiting us @ [email or web address] and completing the following steps: 1. Click on the Patient Portal link 2. Click the Patient Self Enrollment Link to complete the enrollment form and entering your 3. Once the enrollment form is completed you will receive an email with a temporary ID and password at the email address you provided. 4. Next choose a user name and password. Your user name must be at least 4 characters long and your password must be at least 4 characters long. 5. Choose a security question from the list and provide your answer to the question. If you already have signed into the Health Portal you may access your Health Care Information 09/12 by the following steps: 1. Login to our website @ [email or web address] 2. Enter your original user name and password. FAQS The [facility] Health Portal is an online tool that contains your Lab Results, Radiology Reports, Visit History, Discharge Instructions and Health Summary Lab and Radiology Results will not be available for 72 hours on the portal. The Portal is a secure site, passwords are encryted and URLs are re-written so they cannot be copied and pasted. You and authorized family members are the only ones who can access your Portal. Also there is a timeout feature that protects your information if you leave the Portal page open. If you have technical difficulty please use the Contact Us link on the page this will allow you to submit any questions you have regarding the Portal or you may contact the Medical Record Department at [phone]. Prescriptions: Ciprofloxacin [Cipro 500 MG] 500 mg PO BIDAC #20 tablet Cyclobenzaprine HCl 10 mg [Flexeril 10 MG] 10 mg PO TID #30 tablet
[2019-08-08] MEDS ORDERED: Zofran 4 MG/2 ML VIAL ONE (10:59)
[2019-08-08] MEDS ORDERED: SUBLIMAZE 100 MCG/2 ML ONE (10:59)
[2019-08-08] MEDS ORDERED: Sodium Chloride 0.9% 1000 ML 1,000 ML ONE ×2 (10:59→12:30)
[2019-08-08 11:16] LABS: Appearance SLIGHTLY CLOUDY (CLEAR); Bacteria MODERATE /HPF (NEGATIVE); Bilirubin NEGATIVE (NEGATIVE); Blood LARGE Ery/ul (0-5); Epithelial Cells FEW /HPF (FEW); Glucose NEGATIVE (NEGATIVE); Ketones NEGATIVE (NEGATIVE); Leukocyte Esterase SMALL (NEGATIVE); Nitrite NEGATIVE (NEGATIVE); Protein,Urine Dip 30 (Negative); RBC >101 /HPF (0-2); Specific Gravity 1.017 (1.005-1.025); Urobilinogen NEGATIVE mg/dL (0-1); WBC 26-50 /HPF (0-5)
[2019-08-08] MEDS ORDERED: ROCEPHIN 1 Gm-D5w 50 ml Bag** 1 G/50 ML IVPB IV STA (11:19)
[2019-08-08 11:32] LABS: Absolute Neutrophil Ct (ANC) 6.77 (1.4-6.9); BASOPHIL % 0.1 % (0.0-0.4); Basophil (Absolute #) 0.01 (0-0.4); Eosinophil % 5.8 % (0.00-5.0); Eosinophil (Absolute #) 0.55 (0-0.5); Hematocrit 41.3 % (35-47); Hemoglobin 13.9 gm/dl (12.0-16.0); Lymphocyte (Absolute #) 1.78 (1.0-4.6); Lymphocytes % 18.6 % (24.0-44.0); Mean Cell Volume 97.6 fl (78-100); Mean Corpuscular Hemoglobin 32.9 pg (26-32); Mean Corpuscular Hgb Concent. 33.7 g/dl (32-36); Mean Platelet Volume 9.4 fl (7.5-11.0); Monocyte (Absolute #) 0.44 (0.0-1.3); Monocytes % 4.6 % (0.0-12.0); Neutrophil % 70.9 % (36.0-66.0); Platelet Count 344 K/mm3 (150-450); Red Blood Count 4.23 M/mm3 (4.1-5.4); Red Cell Distribution Width 13.4 % (11.5-14.0); White Blood Count 9.6 K/mm3 (4.0-10.5)
[2019-08-08 11:35] LABS: ALBUMIN 4.4 g/dL (3.5-5.0); ALKALINE PHOSPHATASE 111 U/L (38-126); ANION GAP 12.5 MEQ/L (5-15); BLOOD UREA NITROGEN 14 mg/dL (7-17); CHLORIDE 115 mmol/L (98-107); Calcium 9.4 mg/dL (8.4-10.2); Carbon Dioxide 21 mmol/L (22-30); Glucose 92 mg/dL (74-106); Potassium 3.6 mmol/L (3.5-5.1); SGOT/AST 29 U/L (14-36); SGPT/ALT 29 U/L (0-35); SODIUM 145 mmol/L (137-145); Total Protein 7.8 g/dL (6.3-8.2)
[2019-08-08] MEDS ORDERED: ROCEPHIN 1 Gm-D5w 50 ml Bag** 1 G/50 ML IVPB IV ONE (11:49)
[2019-08-08] MEDS ORDERED: Norflex 60 MG/2 ML IM ONE (11:52)
[2019-08-08] MEDS ORDERED: Flomax 0.4 MG PO STA (11:52)
[2019-08-08] MEDS ORDERED: Phenergan 25 MG INJ IM ONE (12:16)
[2019-08-08] MEDS ORDERED: Flomax 0.4 MG ONE (12:30)
[2019-08-08] MEDS ORDERED: Phenergan 25 MG INJ ONE (12:30)
[2019-08-08] MEDS ORDERED: Norflex 60 MG/2 ML ONE (12:30)
--- NOTE | 2019-08-08 19:34 | XRAY ---
Indication: Left flank pain. Multiple contiguous axial images obtained through the abdomen and pelvis without contrast as ordered. Comparison: June 24, 2019. Lung bases again demonstrates minimal bibasilar dependent atelectasis and left gutter calcified granuloma. No infiltrate or effusion. Heart is not enlarged. Noncontrasted stomach and bowel loops appear nonobstructed. Normal appendix. There is now mild diffuse scattered colonic fecal debris throughout. No free fluid/air. Stable left renal micro-calculi, left renal cyst, congenitally absent right kidney, calcified splenic granulomas, cholecystectomy, and duplication of the IVC. Remaining liver, pancreas, spleen, adrenal glands, left kidney, left ureter, and bladder appear unremarkable for noncontrast exam. Stable minimal aortoiliac calcifications without AAA. Osseous structures intact with stable lumbosacral junction degenerative changes. Impression: 1. Stable nonobstructing left renal micro-calculi, left renal cyst, congenitally absent right kidney, and duplication of the IVC. 2. Remaining CT abdomen/pelvis without contrast exam is negative. Comment: Preliminary interpretation was made by [facility]. No critical discrepancy.
== END 2019-08-08 13:23 | disposition home or self-care (01) ==
LOC: ED 10:16
DX: N20.1 Calculus of ureter (principal); R10.9 Unspecified abdominal pain
CPT/HCPCS: 36415; 74176; 80053; 81001; 85025; 87077; 87086; 87186; 96360; 96365; 96372; 96374; 96375; 99284; 99291; J0696; J2360; J2405; J2550; J3010; A9270-GY

== ENCOUNTER 2019-08-08 23:53 | Emergency (ER) | payer OTHER ==
[2019-08-09 00:17] VITALS: BP 126/91; PULSE 87; O2SAT 100
[2019-08-09] MEDS ORDERED: TYLENOL 325 MG PO ONE (00:34)
[2019-08-09] MEDS ORDERED: ZOFRAN ODT 4 MG PO ONE (00:34)
[2019-08-09] MEDS ORDERED: Lidoderm Patch 5% TOP STA (00:37)
--- NOTE | 2019-08-09 00:45 | ERPHSYRPT ---
- History of Present Illness Time Seen by Provider: 08/09/19 00:30 Source: patient Patient Subjective Stated Complaint: pt states she was diagnoes with kidney stone to the lt today and has had increased pain tonight. rates pain 10/10 Triage Nursing Assessment: pt alert and oriented, answers questions approp. pt ambulatory with steady gait noted. respiraitons nonlabored with lungs cta. abd soft and nontender with bowel sounds present. no tenderness noted to back Physician History: The patient is a 44-year-old female with a past medical history is significant for a single intrarenal kidney stone, specifically to the left kidney and a congenitally absent right kidney presents with a chief complaint of left flank pain. She states she has been experiencing left flank pain off and on for months. Pain reportedly started a couple days ago. The pain is described as a sharp pain that radiates to her left lower quadrant and is associated with a burning sensation whenever she pees. She also endorsed having urinary frequency and urgency. She denies fever and chills in addition to nausea, vomiting as well as diarrhea. Of note, the patient was evaluated in the emergency department earlier today and had an abdominal CT scan without contrast that again demonstrated a nonobstructing small kidney stone in the left kidney she did have some hematuria. She was discharged with a prescription that was handed to her for Cipro in addition to Flexeril. The patient stated she did not fill her medication because her pharmacy was closed although she did not explore going to a different pharmacy to fill her medicines. Her been alone and reports that she had a "stone removed" about a month ago by Sumi with urology. The patient reportedly was dropped off at the emergency department tonight by her who left the emergency department. Allergies/Adverse Reactions: Sulfa (Sulfonamide Antibiotics) Allergy (Intermediate, Verified 08/09/19 00:18) Vomiting bee venom protein (honey bee) Allergy (Verified 08/09/19 00:18) methylprednisolone [From Solu-Medrol] Allergy (Verified 08/09/19 00:18) sumatriptan [From Imitrex] Allergy (Verified 08/09/19 00:18) ketorolac [From Toradol] Adverse Reaction (Verified 08/09/19 01:14) Nausea tramadol Adverse Reaction (Verified 08/09/19 01:14) Nausea Home Medications: Gabapentin 600 mg PO QID 06/14/19 [History] Butalb/Acetaminophen/Caffeine [Lgklmd-Etgblitk-Vmft 50-325-40] 1 each PO Q46H PRN 08/08/19 [History] Hx Tetanus, Diphtheria Vaccination/Date Given: Yes Hx Influenza Vaccination/Date Given: No Hx Pneumococcal Vaccination/Date Given: No Immunizations Up to Date: Yes Travel Risk - International Travel Have you traveled outside of the country in past 3 weeks: No Have you or anyone close to you been diagnosed with or: No Do your reside in a community with a known COVID-19 case?: No - Coronavirus Screening Has patient experienced Coronavirus symptoms: No - Review of Systems Constitutional: No Fever, No Chills Abdominal/Gastrointestinal: Abdominal Pain, No Nausea, No Vomiting Genitourinary Symptoms: Frequency, Urgency, Flank Pain, No Urinary Retention, No Vaginal Bleeding, No Vaginal Discharge, No Vaginal Itching Musculoskeletal: No Symptoms Skin: No Symptoms Neurological: No Symptoms Psychological: No Symptoms All Other Systems: Reviewed and Negative - Past Medical History Pertinent Past Medical History: Yes Neurological History: Migraines ENT History: No Pertinent History Cardiac History: No Pertinent History Respiratory History: No Pertinent History Endocrine Medical History: No Pertinent History Musculoskeletal History: Arthritis GI Medical History: Gallbladder Disease History: Other Psycho-Social History: Bipolar Female Reproductive Disorders: Other - Past Surgical History Past Surgical History: Yes Neuro Surgical History: No Pertinent History Cardiac: No Pertinent History Respiratory: No Pertinent History Gastrointestinal: Cholecystectomy Genitourinary: Kidney Surgery Musculoskeletal: No Pertinent History Female Surgical History: Hysterectomy Other Surgical History: skin cancer removed twice - Social History Smoking Status: Current every day smoker How long have you smoked: 20 YEARS Exposure to second hand smoke: Yes Drug Use: none Patient Lives Alone: No - Female History Hx Last Menstrual Period: hyster Hx Now: No - Nursing Vital Signs Nursing Vital Signs: Initial Vital Signs Temperature 98.1 F 08/09/19 00:09 Pulse Rate 87 08/09/19 00:09 Respiratory Rate 20 08/09/19 00:09 Blood Pressure 126/91 08/09/19 00:09 O2 Sat by Pulse Oximetry 100 08/09/19 00:09 Pain Scale Pain Intensity 9 - Physical Exam General Appearance: no apparent distress, alert Eye Exam: PERRL/EOMI, No scleral icterus Ears, Nose, Throat Exam: pharynx normal, No TMs normal, No TM abnormal (L), No pharyngeal erythema, No tonsillar exudate Neck Exam: normal inspection, supple Respiratory Exam: normal breath sounds, lungs clear, No respiratory distress Cardiovascular Exam: regular rate/rhythm, normal heart sounds, normal peripheral pulses, capillary refill <2 sec, No murmur, No friction rub, No gallop, No tachycardia Gastrointestinal/Abdomen Exam: soft Pelvic Exam: not done Rectal Exam: deferred Back Exam: CVA tenderness (No evidence of flank ecchymosis) Extremity Exam: normal inspection Neurologic Exam: alert, oriented x 3, cooperative, normal mood/affect Skin Exam: normal color, warm, dry, No rash, No petechiae, No jaundice SpO2 Interpretation: normal SpO2: 100 O2 Delivery: Room Air - Course Nursing assessment & vital signs reviewed: Yes Ordered Tests: Active Orders 24 hr Category Date Time Status IV Insertion STAT Care 08/09/19 00:34 Active Medication Summary Discontinued Medications Generic Name Dose Route Start Last Admin Trade Name Ismaq PRN Reason Stop Dose Admin Acetaminophen 975 mg 08/09/19 00:34 08/09/19 01:05 Tylenol 325 Mg PO 08/09/19 00:35 Not Given STAT ONE Acetaminophen Confirm 08/09/19 00:56 Tylenol 325 Mg Administered 08/09/19 00:57 Dose 975 mg .ROUTE .STK-MED ONE Ketorolac Tromethamine 30 mg 08/09/19 01:13 Toradol 30 Mg Injection IM 08/09/19 01:14 STAT ONE Ketorolac Tromethamine Confirm 08/09/19 01:16 Toradol 30 Mg Injection Administered 08/09/19 01:17 Dose 30 mg .ROUTE .STK-MED ONE Lidocaine 1 patch 08/09/19 00:37 08/09/19 01:06 Lidoderm Patch 5% TOP 08/09/19 00:38 1 patch SENT HOME W/ PATIENT STA Administration Ondansetron HCl 4 mg 08/09/19 00:34 08/09/19 01:06 Zofran Odt 4 Mg PO 08/09/19 00:35 4 mg STAT ONE Administration Ondansetron HCl Confirm 08/09/19 00:56 Zofran Odt 4 Mg Administered 08/09/19 00:57 Dose 4 mg .ROUTE .STK-MED ONE - Progress Progress: unchanged Progress Note: 08/09/19 00:50 CMR, specifically her last emergency department visit note in which she was prescribed Cipro Flexeril. I also performed an inspect on this patient and it appears she has had numerous prescriptions for [place] prescribed recently over the last 6 months by multiple providers. It appears she has had a total of abdominal CTs with the first 1 being in March 2019 and the last one being today although which have showed no evidence of an obstructing kidney stone and show either a stable single left intrarenal calculi that is small or 2 stable intrarenal calculi that are very small as well. Her urine during her last ED visit showed some evidence of microscopic hematuria. My current plan is to administer some Tylenol and a lidocaine patch for pain in addition to Zofran if you develop any nausea. She was instructed to call for a ride if she were to request any pain medication that is stronger than what was provided already. I offered her Toradol in addition to ibuprofen however she was not interested in these even though she endorsed having a medication side effect rather than an allergic reaction, specifically nausea. I offered to prophylactically treat her with ondansetron before giving her any of these medicines but she declined. At the patient had x-rays of her lumbar spine in addition to hips earlier this month and the lumbar spine show degenerative disc disease at L5 and S1. Her pain could be from chronic low back pain given her x-ray findings. [place] [facility] records of her recent urological intervention reportedly in the last month. I am concerned that the patient is displaying some seeking behavior and I will go ahead and obtain a UA via cath specimen to see if she has any evidence of infection or microscopic hematuria with the sample. On repeating her imaging tonight. Her BMP earlier today was relatively benign with no evidence of CKD. Her CBC earlier today was also relatively benign feel compelled to repeat these labs today since they were just recently done. 08/09/19 01:01 Her called the emergency department and was inquiring why he needed to come to the emergency department and in was informed that in order for the patient to get sedating or medications that were opiate-based she would need a ride present to be able to transport her home. He stated that she stole his car and he did not realize that she was at the hospital. He was requesting that we do not give her any pain medications. 08/09/19 01:08 [place] [facility] specifically the op note from [facility] dated July 05, 2027. She was found to have no obstructing stone in the left ureter left ureteroscopy but she did have a nonobstructing 3 mm stone pulled out of the inferior pole of the calyx. 08/09/19 01:13 The patient refused the Tylenol that was given to her/ordered and stated that she had Tylenol at 9 PM which she did not report during intake or during my history taking. She was receptive to receiving Toradol since she just received ODT Zofran. 08/09/19 01:40 The patient was requesting to leave stating that she borrowed her 's car and could only use it for 30 minutes and needed to leave the emergency department immediately. I did not have the opportunity to speak with the patient before she signed out AMA and at this point the patient essentially eloped. - Departure Departure Disposition: Home, AMA Clinical Impression: Left flank pain Condition: Stable Critical Care Time: No Referrals: GASTON CAMPUZANO [Primary Care Provider] - Instructions: Flank Pain
[2019-08-09] MEDS ORDERED: TYLENOL 325 MG ONE (00:56)
[2019-08-09] MEDS ORDERED: ZOFRAN ODT 4 MG ONE (00:56)
[2019-08-09] MEDS ORDERED: TORAdol 30 mg Injection IM ONE (01:13)
[2019-08-09] MEDS ORDERED: TORAdol 30 mg Injection ONE (01:16)
== END 2019-08-09 01:24 | disposition left against medical advice (07) ==
LOC: ED 23:53
DX: R10.32 Left lower quadrant pain (principal); N20.0 Calculus of kidney; Z90.5 Acquired absence of kidney; Z87.442 Personal history of urinary calculi
CPT/HCPCS: 99283; J1885; Q0162; A9270-GY

== ENCOUNTER 2019-10-13 09:18 | Day surgery (SDC) | payer OTHER ==
[2019-10-13] MEDS ORDERED: Xylocaine 1% Vial 30 ML PF IJ ONE (09:19)
[2019-10-13] MEDS ORDERED: Depo-Medrol 40 MG/ML IM ONE (09:19)
[2019-10-13] MEDS ORDERED: Marcaine 0.5% SDV 10 ML IM ONE (09:19)
[2019-10-13] MEDS ORDERED: Versed 2 MG/2 ML Injection ONE (09:52)
[2019-10-13] MEDS ORDERED: Ketamine HCl 50 MG/ML ONE (10:20)
[2019-10-13] MEDS ORDERED: DIPRIVAN 200 MG/20 ML IV ONE (10:20)
--- NOTE | 2019-10-13 12:17 | XRAY ---
Indication: Right greater trochanter and intra-articular injection. Intraoperative fluoroscopy was provided for 37 seconds. 2 digital spot images submitted for interpretation demonstrates a needle tip projecting just lateral to the greater trochanter and a second needle tip projecting just lateral to the femur head. Small amount of contrast injected for both needle tip placement. Correlate with intraoperative findings/report.
--- NOTE | 2019-10-13 12:20 | XRAY ---
37 seconds fluoroscopy time in surgery for right intra-articular and greater trochanter injections.
[2019-10-13] MEDS ORDERED: Lactated Ringers 1,000 ML IV ONE (14:45)
== END 2019-10-13 10:58 | disposition home or self-care (01) ==
LOC: SDC-PAIN 09:18
PROVIDERS: ATTEND Psychiatry & Neurology Pain Medicine
DX: M70.61 Trochanteric bursitis, right hip (principal); M16.11 Unilateral primary osteoarthritis, right hip; M79.7 Fibromyalgia; Z79.899 Other long term (current) drug therapy
CPT/HCPCS: 20610; 73502; 77002; J1030; J2001; J2250; J2704; Q9966

== ENCOUNTER 2019-10-14 17:08 | Emergency (ER) | payer OTHER ==
--- NOTE | 2019-10-14 17:20 | ERPHSYRPT ---
- History of Present Illness Time Seen by Provider: 10/14/19 17:30 Historian: patient Exam Limitations: no limitations Physician History: This is a 44-year-old white female who has a history of recurrent flank pain, recurrent UTIs, recurrent hematuria and recurrent ureterolithiasis. She has had several CAT scans in the past for recurrent ureterolithiasis. Patient sees pain clinic Dr. Cavazos. She just saw him yesterday and complained of left hip pain. Patient underwent a fluoroscopic injection of the left hip. Patient also saw Dr. Cavazos on 10/05/2019 and 09/22/2019. Patient is allergic to Toradol and tramadol. And also states that she has difficulty urinating at times and has to strain. This is causing some hemorrhoid issues. This is been a chronic issue for her. Patient has only 1 kidney and that is on the left side. That is where her left flank pain is. Symptoms began yesterday late afternoon. Symptoms worsen pain now radiating around to the suprapubic area on the left. States that she is not allergic to Dilaudid. It just made her nauseated. Timing/Duration: yesterday, worse Quality: burning, stabbing Abdominal Pain Onset Location: flank (Left) Pain Radiation: other (Suprapubic) Severity of Pain-Max: moderate Severity of Pain-Current: moderate Modifying Factors: Improves With: urinating Associated Symptoms: other (Flank pain) Previous symptoms: same symptoms as today, recently seen, recently treated Allergies/Adverse Reactions: Sulfa (Sulfonamide Antibiotics) Allergy (Intermediate, Verified 10/14/19 17:34) Vomiting bee venom protein (honey bee) Allergy (Verified 10/14/19 17:34) methylprednisolone [From Solu-Medrol] Allergy (Verified 10/14/19 17:34) sumatriptan [From Imitrex] Allergy (Verified 10/14/19 17:34) ketorolac [From Toradol] Adverse Reaction (Verified 10/14/19 17:34) Nausea tramadol Adverse Reaction (Verified 10/14/19 17:34) Nausea Home Medications: Gabapentin 600 mg PO QID 06/14/19 [History] Butalb/Acetaminophen/Caffeine [Tkhtsb-Rvegllbz-Zpfk 50-325-40] 1 each PO Q46H PRN 08/08/19 [History] Hx Tetanus, Diphtheria Vaccination/Date Given: Yes Hx Influenza Vaccination/Date Given: No Hx Pneumococcal Vaccination/Date Given: No Travel Risk - International Travel Have you traveled outside of the country in past 3 weeks: No Have you or anyone close to you been diagnosed with or: No Do your reside in a community with a known COVID-19 case?: Yes If Yes where:: [facility] - Coronavirus Screening Has patient experienced Coronavirus symptoms: No - Review of Systems Constitutional: No Symptoms Eyes: No Symptoms Ears, Nose, & Throat: No Symptoms Respiratory: No Symptoms Cardiac: No Symptoms Genitourinary Symptoms: Hematuria, Flank Pain Musculoskeletal: No Symptoms Skin: No Symptoms Neurological: No Symptoms Psychological: No Symptoms Endocrine: No Symptoms Hematologic/Lymphatic: No Symptoms Immunological/Allergic: No Symptoms All Other Systems: Reviewed and Negative - Past Medical History Pertinent Past Medical History: Yes Neurological History: Migraines ENT History: No Pertinent History Cardiac History: No Pertinent History Respiratory History: No Pertinent History Endocrine Medical History: No Pertinent History Musculoskeletal History: Arthritis GI Medical History: Gallbladder Disease History: Other Psycho-Social History: Bipolar Female Reproductive Disorders: Other - Past Surgical History Past Surgical History: Yes Neuro Surgical History: No Pertinent History Cardiac: No Pertinent History Respiratory: No Pertinent History Gastrointestinal: Cholecystectomy Genitourinary: Kidney Surgery Musculoskeletal: No Pertinent History Female Surgical History: Hysterectomy Other Surgical History: skin cancer removed twice - Social History Smoking Status: Current every day smoker How long have you smoked: 20 YEARS Exposure to second hand smoke: Yes Drug Use: none Patient Lives Alone: No - Nursing Vital Signs Nursing Vital Signs: Initial Vital Signs Temperature 98.4 F 10/14/19 17:15 Pulse Rate 90 10/14/19 17:15 Blood Pressure 141/91 10/14/19 17:15 O2 Sat by Pulse Oximetry 100 10/14/19 17:15 Pain Scale Pain Intensity 9 - Physical Exam General Appearance: mild distress, alert, anxiety Eye Exam: PERRL/EOMI, eyes nml inspection Ears, Nose, Throat Exam: normal ENT inspection, moist mucous membranes Neck Exam: normal inspection, non-tender, supple, full range of motion Respiratory Exam: normal breath sounds, lungs clear, airway intact, No chest tenderness, No respiratory distress Cardiovascular Exam: regular rate/rhythm, normal heart sounds, normal peripheral pulses Gastrointestinal/Abdomen Exam: soft, normal bowel sounds, No tenderness, No guarding Pelvic Exam: not done Rectal Exam: not done Back Exam: normal inspection, normal range of motion, CVA tenderness, No vertebral tenderness Extremity Exam: normal inspection, normal range of motion, pelvis stable Neurologic Exam: alert, oriented x 3, cooperative, 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, normal mood/affect, nml cerebellar function, nml station & gait, sensation nml Skin Exam: normal color, warm, dry Lymphatic Exam: No adenopathy SpO2 Interpretation: normal O2 Delivery: Room Air - Course Nursing assessment & vital signs reviewed: Yes Ordered Tests: Active Orders 24 hr Category Date Time Status IV Insertion STAT Care 10/14/19 17:41 Active ABDOMEN AND PELVIS W/0 CONTRAS [CT] Stat Exams 10/14/19 17:42 Taken AMYLASE Stat Lab 10/14/19 17:00 Completed CBC W DIFF Stat Lab 10/14/19 17:00 Completed CMP Stat Lab 10/14/19 17:00 Completed CULTURE,URINE Stat Lab 10/14/19 17:35 Received LIPASE Stat Lab 10/14/19 17:00 Completed Lactic Acid Stat Lab 10/14/19 17:56 Completed Lactic Acid Stat Lab 10/14/19 19:59 Received UA W/RFX UR CULTURE Stat Lab 10/14/19 17:35 Completed Medication Summary Discontinued Medications Generic Name Dose Route Start Last Admin Trade Name Ismaq PRN Reason Stop Dose Admin Hydromorphone HCl 1 mg 10/14/19 17:41 10/14/19 18:12 Hydromorphone 1 Mg/Ml Ampule IV 10/14/19 17:42 1 mg STAT ONE Administration Hydromorphone HCl Confirm 10/14/19 18:00 Hydromorphone 1 Mg/Ml Ampule Administered 10/14/19 18:01 Dose 1 mg .ROUTE .STK-MED ONE Hydromorphone HCl 0.5 mg 10/14/19 19:17 10/14/19 19:33 Hydromorphone 1 Mg/Ml Ampule IV 10/14/19 19:18 0.5 mg STAT ONE Administration Hydromorphone HCl Confirm 10/14/19 19:29 Hydromorphone 1 Mg/Ml Ampule Administered 10/14/19 19:30 Dose 1 mg .ROUTE .STK-MED ONE Sodium Chloride 1,000 mls @ 999 mls/hr 10/14/19 17:41 10/14/19 18:05 Sodium Chloride 0.9% 1000 Ml IV 10/14/19 18:41 999 mls/hr .Q1H1M STA Administration Sodium Chloride Confirm 10/14/19 18:00 Sodium Chloride 0.9% 1000 Ml Administered 10/14/19 18:01 Dose 1,000 mls @ ud .ROUTE .STK-MED ONE Ceftriaxone Sodium/Dextrose 1 g in 50 mls @ 100 mls/hr 10/14/19 19:00 19:08 Rocephin 1 Gm-D5w 50 Ml Bag IV 10/14/19 19:29 100 mls/hr STAT STA 100 mls/hr Administration Ceftriaxone Sodium/Dextrose Confirm 10/14/19 19:07 Rocephin 1 Gm-D5w 50 Ml Bag Administered 10/14/19 19:08 Dose 1 g in 50 mls @ ud IV .STK-MED ONE Ondansetron HCl 4 mg 10/14/19 17:41 10/14/19 18:07 Zofran 4 Mg/2 Ml Vial IV 10/14/19 17:42 4 mg STAT ONE Administration Ondansetron HCl Confirm 10/14/19 18:00 Zofran 4 Mg/2 Ml Vial Administered 10/14/19 18:01 Dose 4 mg .ROUTE .STK-MED ONE Promethazine HCl 12.5 mg 10/14/19 19:17 10/14/19 19:32 Phenergan 25 Mg Inj IM 10/14/19 19:18 12.5 mg STAT ONE Administration Promethazine HCl Confirm 10/14/19 19:28 Phenergan 25 Mg Inj Administered 10/14/19 19:29 Dose 25 mg .ROUTE .STK-MED ONE Lab/Rad Data: Laboratory Result Diagrams 10/14/19 17:00 10/14/19 17:00 Laboratory Results 10/14/19 10/14/19 10/14/19 Range/Units 17:56 17:35 17:00 WBC (4.0-10.5) K/mm3 RBC (4.1-5.4) M/mm3 Hgb (12.0-16.0) gm/dl Hct (35-47) % MCV (78-100) fl MCH (26-32) pg MCHC (32-36) g/dl RDW (11.5-14.0) % Plt Count (150-450) K/mm3 MPV (7.5-11.0) fl Gran % (36.0-66.0) % Eos # (Auto) (0-0.5) Absolute Lymphs (auto) (1.0-4.6) Absolute Monos (auto) (0.0-1.3) Lymphocytes % (24.0-44.0) % Monocytes % (0.0-12.0) % Eosinophils % (0.00-5.0) % Basophils % (0.0-0.4) % Absolute Granulocytes (1.4-6.9) Basophils # (0-0.4) Sodium 139 (137-145) mmol/L Potassium 3.9 (3.5-5.1) mmol/L Chloride 107 (98-107) mmol/L Carbon Dioxide 22 (22-30) mmol/L Anion Gap 14.4 (5-15) MEQ/L BUN 21 H (7-17) mg/dL Creatinine 0.67 (0.52-1.04) mg/dL Estimated GFR > 60.0 ML/MIN Glucose 148 H (74-106) mg/dL Lactic Acid 2.1 H (0.4-2.0) Calcium 9.2 (8.4-10.2) mg/dL Total Bilirubin 0.20 (0.2-1.3) mg/dL AST 27 (14-36) U/L ALT 21 (0-35) U/L Alkaline Phosphatase 95 (38-126) U/L Serum Total Protein 7.3 (6.3-8.2) g/dL Albumin 4.1 (3.5-5.0) g/dL Amylase 114 H (30-110) U/L Lipase 75 (23-300) U/L Urine Color NATE (YELLOW) Urine Appearance CLOUDY (CLEAR) Urine pH 5.0 (5-6) Ur Specific Painter 1.034 (1.005-1.025) Urine Protein 100 (Negative) Urine Ketones NEGATIVE (NEGATIVE) Urine Blood LARGE (0-5) Ed/ul Urine Nitrite NEGATIVE (NEGATIVE) Urine Bilirubin NEGATIVE (NEGATIVE) Urine Urobilinogen NEGATIVE (0-1) mg/dL Ur Leukocyte Esterase SMALL (NEGATIVE) Urine WBC (Auto) 6-10 (0-5) /HPF Urine RBC (Auto) >101 (0-2) /HPF U Hyaline Cast (Auto) 6-10 (0-2) /LPF U Epithel Cells (Auto) FEW (FEW) /HPF Urine Bacteria (Auto) NONE (NEGATIVE) /HPF Urine Mucus (Auto) SLIGHT (NEGATIVE) /HPF Urine Culture Reflexed YES (NO) Urine Glucose NEGATIVE (NEGATIVE) mg/dL 10/14/19 Range/Units 17:00 WBC 11.6 H (4.0-10.5) K/mm3 RBC 4.45 (4.1-5.4) M/mm3 Hgb 14.7 (12.0-16.0) gm/dl Hct 44.7 (35-47) % MCV 100.4 H (78-100) fl MCH 33.0 H (26-32) pg MCHC 32.9 (32-36) g/dl RDW 13.4 (11.5-14.0) % Plt Count 327 (150-450) K/mm3 MPV 9.4 (7.5-11.0) fl Gran % 81.3 H (36.0-66.0) % Eos # (Auto) 0.10 (0-0.5) Absolute Lymphs (auto) 1.44 (1.0-4.6) Absolute Monos (auto) 0.61 (0.0-1.3) Lymphocytes % 12.4 L (24.0-44.0) % Monocytes % 5.3 (0.0-12.0) % Eosinophils % 0.9 (0.00-5.0) % Basophils % 0.1 (0.0-0.4) % Absolute Granulocytes 9.45 H (1.4-6.9) Basophils # 0.01 (0-0.4) Sodium (137-145) mmol/L Potassium (3.5-5.1) mmol/L Chloride (98-107) mmol/L Carbon Dioxide (22-30) mmol/L Anion Gap (5-15) MEQ/L BUN (7-17) mg/dL Creatinine (0.52-1.04) mg/dL Estimated GFR ML/MIN Glucose (74-106) mg/dL Lactic Acid (0.4-2.0) Calcium (8.4-10.2) mg/dL Total Bilirubin (0.2-1.3) mg/dL AST (14-36) U/L ALT (0-35) U/L Alkaline Phosphatase (38-126) U/L Serum Total Protein (6.3-8.2) g/dL Albumin (3.5-5.0) g/dL Amylase (30-110) U/L Lipase (23-300) U/L Urine Color (YELLOW) Urine Appearance (CLEAR) Urine pH (5-6) Ur Specific Painter (1.005-1.025) Urine Protein (Negative) Urine Ketones (NEGATIVE) Urine Blood (0-5) Ed/ul Urine Nitrite (NEGATIVE) Urine Bilirubin (NEGATIVE) Urine Urobilinogen (0-1) mg/dL Ur Leukocyte Esterase (NEGATIVE) Urine WBC (Auto) (0-5) /HPF Urine RBC (Auto) (0-2) /HPF U Hyaline Cast (Auto) (0-2) /LPF U Epithel Cells (Auto) (FEW) /HPF Urine Bacteria (Auto) (NEGATIVE) /HPF Urine Mucus (Auto) (NEGATIVE) /HPF Urine Culture Reflexed (NO) Urine Glucose (NEGATIVE) mg/dL - Progress Progress: improved, pain not gone completely, re-examined Progress Note: 10/14/19 20:47 CAT scan of the abdomen and pelvis reveals fecal stasis. No ureterolithiasis. No acute intra-abdominal findings Counseled pt/family regarding: lab results, diagnosis, need for follow-up, rad results - Departure Departure Disposition: Home Clinical Impression: Hematuria, Flank pain, UTI (urinary tract infection) with pyuria Condition: Stable Critical Care Time: No Referrals: GASTON CAMPUZANO [Primary Care Provider] - Additional Instructions: Plenty of fluids. Follow-up with your primary care physician, pain management physician for further management of your chronic conditions including chronic pain. Prescriptions: Ciprofloxacin [Cipro 500 MG] 500 mg PO BID #14 tablet
[2019-10-14] MEDS ORDERED: Hydromorphone 1 mg/ml Ampule IV ONE ×2 (17:41→19:17)
[2019-10-14] MEDS ORDERED: Sodium Chloride 0.9% 1000 ML 1,000 ML IV STA (17:41)
[2019-10-14] MEDS ORDERED: Zofran 4 MG/2 ML VIAL IV ONE (17:41)
[2019-10-14] MEDS ORDERED: Sodium Chloride 0.9% 1000 ML 1,000 ML ONE (18:00)
[2019-10-14] MEDS ORDERED: Hydromorphone 1 mg/ml Ampule ONE ×2 (18:00→19:29)
[2019-10-14] MEDS ORDERED: Zofran 4 MG/2 ML VIAL ONE (18:00)
[2019-10-14 18:01] LABS: Absolute Neutrophil Ct (ANC) 9.45 (1.4-6.9); BASOPHIL % 0.1 % (0.0-0.4); Basophil (Absolute #) 0.01 (0-0.4); Eosinophil % 0.9 % (0.00-5.0); Hematocrit 44.7 % (35-47); Hemoglobin 14.7 gm/dl (12.0-16.0); Lymphocyte (Absolute #) 1.44 (1.0-4.6); Lymphocytes % 12.4 % (24.0-44.0); Mean Cell Volume 100.4 fl (78-100); Mean Corpuscular Hgb Concent. 32.9 g/dl (32-36); Mean Platelet Volume 9.4 fl (7.5-11.0); Monocyte (Absolute #) 0.61 (0.0-1.3); Monocytes % 5.3 % (0.0-12.0); Neutrophil % 81.3 % (36.0-66.0); Platelet Count 327 K/mm3 (150-450); Red Blood Count 4.45 M/mm3 (4.1-5.4); Red Cell Distribution Width 13.4 % (11.5-14.0); White Blood Count 11.6 K/mm3 (4.0-10.5)
[2019-10-14 18:10] LABS: Appearance CLOUDY (CLEAR); Bilirubin NEGATIVE (NEGATIVE); Blood LARGE Ery/ul (0-5); Epithelial Cells FEW /HPF (FEW); Glucose NEGATIVE (NEGATIVE); Ketones NEGATIVE (NEGATIVE); Leukocyte Esterase SMALL (NEGATIVE); Mucus SLIGHT /HPF (NEGATIVE); Nitrite NEGATIVE (NEGATIVE); Protein,Urine Dip 100 (Negative); Specific Gravity 1.034 (1.005-1.025); Urobilinogen NEGATIVE mg/dL (0-1)
[2019-10-14 18:11] LABS: ALBUMIN 4.1 g/dL (3.5-5.0); ALKALINE PHOSPHATASE 95 U/L (38-126); AMYLASE 114 U/L (30-110); ANION GAP 14.4 MEQ/L (5-15); BLOOD UREA NITROGEN 21 mg/dL (7-17); CHLORIDE 107 mmol/L (98-107); Calcium 9.2 mg/dL (8.4-10.2); Carbon Dioxide 22 mmol/L (22-30); Creatinine 1 0.67 mg/dL (0.52-1.04); Glucose 148 mg/dL (74-106); LIPASE 75 U/L (23-300); Potassium 3.9 mmol/L (3.5-5.1); SGOT/AST 27 U/L (14-36); SGPT/ALT 21 U/L (0-35); SODIUM 139 mmol/L (137-145); Total Protein 7.3 g/dL (6.3-8.2)
[2019-10-14 18:15] LABS: RBC >101 /HPF (0-2)
[2019-10-14] MEDS ORDERED: ROCEPHIN 1 Gm-D5w 50 ml Bag** 1 G/50 ML IVPB IV STA (19:00)
[2019-10-14] MEDS ORDERED: ROCEPHIN 1 Gm-D5w 50 ml Bag** 1 G/50 ML IVPB IV ONE (19:07)
[2019-10-14] MEDS ORDERED: Phenergan 25 MG INJ IM ONE (19:17)
[2019-10-14] MEDS ORDERED: Phenergan 25 MG INJ ONE (19:28)
[2019-10-14] MEDS ORDERED: Levofloxacin 250MG Tablet PO ONE (20:51)
[2019-10-14] MEDS ORDERED: Levofloxacin 250MG Tablet ONE (21:10)
[2019-10-14 21:27] VITALS: BP 106/65; PULSE 70; O2SAT 95
--- NOTE | 2019-10-15 09:03 | XRAY ---
Indication: Flank pain and hematuria. Multiple contiguous axial images obtained through the abdomen and pelvis without contrast using renal stone protocol. Comparison: August 08, 2019. Lung bases again demonstrate bibasilar dependent atelectasis and tiny left gutter calcified granuloma. No infiltrate or effusion. Heart is not enlarged. Stable tiny distal paraesophageal calcified node. Left kidney demonstrates stable 2 nonobstructing punctate calculi. Stable congenitally absent right kidney, IVC duplication, pelvic phleboliths, cholecystectomy, hysterectomy, and calcified splenic granulomas. No free fluid/air. Noncontrasted stomach and bowel loops appear nonobstructed. Normal appendix. There is now mild/moderate diffuse fecal debris throughout. Remaining liver, pancreas, spleen, adrenal glands, left kidney, left ureter, and bladder appear unremarkable for noncontrast exam. Stable minimal aortoiliac calcifications without AAA. Osseous structures intact with stable lumbosacral junction degenerative disc disease. Impression: 1. Stable nonobstructing left renal micro-calculi, congenitally absent right kidney, IVC duplication, and evidence for old granulomatous disease. 2. New diffuse fecal stasis without obstruction. 3. Remaining CT abdomen/pelvis without contrast exam is negative.
== END 2019-10-14 21:32 | disposition home or self-care (01) ==
LOC: ED 17:08
DX: R31.9 Hematuria, unspecified (principal); R10.9 Unspecified abdominal pain; N39.0 Urinary tract infection, site not specified; Z87.440 Personal history of urinary (tract) infections; F31.9 Bipolar disorder, unspecified; Z85.828 Personal history of other malignant neoplasm of skin
CPT/HCPCS: 36000; 36415; 74176; 80053; 81001; 82150; 83605; 83690; 85025; 87086; 96360; 96365; 96372; 96374; 96375; 96376; 99284; J0696; J1170; J2405; J2550; A9270-GY

== ENCOUNTER 2019-11-09 09:26 | Emergency (ER) | payer OTHER ==
[2019-11-09] MEDS ORDERED: Sodium Chloride 0.9% 1000 ML 1,000 ML IV STA (09:36)
[2019-11-09] MEDS ORDERED: Sodium Chloride 0.9% 1000 ML 1,000 ML ONE (09:47)
[2019-11-09 10:12] LABS: Absolute Neutrophil Ct (ANC) 10.98 (1.4-6.9); BASOPHIL % 0.2 % (0.0-0.4); Basophil (Absolute #) 0.02 (0-0.4); Eosinophil % 1.1 % (0.00-5.0); Eosinophil (Absolute #) 0.14 (0-0.5); Hemoglobin 14.7 gm/dl (12.0-16.0); Lymphocyte (Absolute #) 1.65 (1.0-4.6); Lymphocytes % 12.5 % (24.0-44.0); Mean Cell Volume 98.7 fl (78-100); Mean Corpuscular Hemoglobin 32.2 pg (26-32); Mean Corpuscular Hgb Concent. 32.7 g/dl (32-36); Mean Platelet Volume 8.3 fl (7.5-11.0); Monocyte (Absolute #) 0.41 (0.0-1.3); Monocytes % 3.1 % (0.0-12.0); Neutrophil % 83.1 % (36.0-66.0); Platelet Count 947 K/mm3 (150-450); Red Blood Count 4.56 M/mm3 (4.1-5.4); Red Cell Distribution Width 14.4 % (11.5-14.0); White Blood Count 13.2 K/mm3 (4.0-10.5)
[2019-11-09] MEDS ORDERED: MORPHINE SULFATE 2 MG INJ IV ONE (10:16)
[2019-11-09] MEDS ORDERED: Zofran 4 MG/2 ML VIAL IV ONE (10:17)
--- NOTE | 2019-11-09 10:19 | ERPHSYRPT ---
- History of Present Illness Time Seen by Provider: 11/09/19 09:45 Historian: patient Exam Limitations: no limitations Patient Subjective Stated Complaint: abd pain at incision site. has colostomy bag since sx on 10/31, hernia repair Triage Nursing Assessment: pt to ED c/o pain at incision site as well as NV and colostomy bag problems since sx on 10/31 for hernia. pt rates 10/10 pain that worsens with movement and emesis. pt reports last po intake yesterday. lung sounds clear, heart sounds clear, bowel sounds active in all 4 quads. LBM in colostomy bag today. pt self assist back from restroom to pt room with minimal assist. Physician History: Patient is a 44-year-old female who presents to our ED with complaints of periumbilical pain. Pain started yesterday but got significantly worse today today at approximately 10 AM. Patient advises staff that she had surgery done in [place] by Dr. Hearn on October 31. Patient states she had a vaginal hernia which caused a rectal prolapse requiring a colostomy. Patient's pain is associated with nausea and vomiting. Last p.o. was yesterday. No trauma. No fever. Symptoms are constant. Symptoms are moderate to severe in intensity. Movement and palpation worsen symptoms. Pain improved with rest. Patient has history of migraines, fibromyalgia and arthralgias. Patient otherwise generally healthy. She voices no other complaints at this time. Patient surgeon Dr. Hearn from [facility] # [phone] Timing/Duration: yesterday Activities at Onset: none Abdominal Pain Onset Location: periumbilical Pain Radiation: no radiation Severity of Pain-Max: severe Severity of Pain-Current: moderate Modifying Factors: Improves With: movement, palpation Associated Symptoms: nausea, vomiting Previous symptoms: no prior history Allergies/Adverse Reactions: Sulfa (Sulfonamide Antibiotics) Allergy (Intermediate, Verified 11/09/19 09:45) Vomiting bee venom protein (honey bee) Allergy (Verified 11/09/19 09:45) methylprednisolone [From Solu-Medrol] Allergy (Verified 11/09/19 09:45) sumatriptan [From Imitrex] Allergy (Verified 11/09/19 09:45) ketorolac [From Toradol] Adverse Reaction (Verified 11/09/19 09:45) Nausea tramadol Adverse Reaction (Verified 11/09/19 09:45) Nausea Home Medications: Gabapentin 600 mg PO QID 06/14/19 [History] Hx Tetanus, Diphtheria Vaccination/Date Given: Yes Hx Influenza Vaccination/Date Given: No Hx Pneumococcal Vaccination/Date Given: No Travel Risk - International Travel Have you traveled outside of the country in past 3 weeks: No - Coronavirus Screening Are you exhibiting any of the following symptoms?: Yes Symptoms: Vomiting/Diarrhea Close contact with a COVID-19 positive Pt in past 14-21 Days: No - Review of Systems Constitutional: No Symptoms, No Fever, No Chills Eyes: No Symptoms Ears, Nose, & Throat: No Symptoms Respiratory: No Symptoms, No Cough, No Dyspnea Cardiac: No Symptoms, No Chest Pain, No Edema, No Syncope Abdominal/Gastrointestinal: No Symptoms, No Abdominal Pain, No Nausea, No Vomiting, No Diarrhea Genitourinary Symptoms: No Symptoms, No Dysuria Musculoskeletal: No Symptoms, No Back Pain, No Neck Pain Skin: No Symptoms, No Rash Neurological: No Symptoms, No Dizziness, No Focal Weakness, No Sensory Changes Psychological: No Symptoms Endocrine: No Symptoms Hematologic/Lymphatic: No Symptoms Immunological/Allergic: No Symptoms All Other Systems: Reviewed and Negative - Past Medical History Pertinent Past Medical History: Yes Neurological History: Migraines ENT History: No Pertinent History Cardiac History: No Pertinent History Respiratory History: No Pertinent History Endocrine Medical History: No Pertinent History Musculoskeletal History: Arthritis GI Medical History: Gallbladder Disease History: Other Psycho-Social History: Bipolar Female Reproductive Disorders: Other - Past Surgical History Past Surgical History: Yes Neuro Surgical History: No Pertinent History Cardiac: No Pertinent History Respiratory: No Pertinent History Gastrointestinal: Cholecystectomy, Hernia Repair Genitourinary: Kidney Surgery Musculoskeletal: No Pertinent History Female Surgical History: Hysterectomy Other Surgical History: skin cancer removed twice, hernia removal - Social History Smoking Status: Current every day smoker How long have you smoked: 20 YEARS Exposure to second hand smoke: Yes Drug Use: none Patient Lives Alone: No - Female History Hx Now: No - Nursing Vital Signs Nursing Vital Signs: Initial Vital Signs Temperature 99.0 F 11/09/19 09:32 Pulse Rate 107 H 11/09/19 09:32 Respiratory Rate 22 11/09/19 09:32 Blood Pressure 125/96 11/09/19 09:32 O2 Sat by Pulse Oximetry 98 11/09/19 09:32 Pain Scale Pain Intensity 8 - Physical Exam General Appearance: no apparent distress, alert Eye Exam: PERRL/EOMI, eyes nml inspection Ears, Nose, Throat Exam: normal ENT inspection, pharynx normal, moist mucous membranes Neck Exam: normal inspection, non-tender, supple, full range of motion Respiratory Exam: normal breath sounds, lungs clear, No respiratory distress Cardiovascular Exam: regular rate/rhythm, normal heart sounds Gastrointestinal/Abdomen Exam: soft, other (Ostomy site appears healthy. There is no cellulitis. Surgical scar is well-healed. Diffuse abdominal tenderness. No rebound. No peritoneal signs.), No tenderness, No mass Pelvic Exam: not done Rectal Exam: deferred Back Exam: normal inspection, normal range of motion, No CVA tenderness, No vertebral tenderness Extremity Exam: normal inspection, normal range of motion, pelvis stable Neurologic Exam: alert, oriented x 3, cooperative, normal mood/affect, nml cerebellar function, sensation nml, No motor deficits Skin Exam: normal color, warm, dry SpO2 Interpretation: normal SpO2: 98 O2 Delivery: Room Air Ordered Tests: Active Orders 24 hr Category Date Time Status IV Insertion STAT Care 11/09/19 09:36 Active ABDOMEN AND PELVIS W/0 CONTRAS [CT] Stat Exams 11/09/19 09:36 Completed CBC W DIFF Stat Lab 11/09/19 10:00 Completed CMP Stat Lab 11/09/19 10:00 Completed HCG,QUALITATIVE URINE Stat Lab 11/09/19 09:43 Completed LIPASE Stat Lab 11/09/19 10:00 Completed UA W/RFX UR CULTURE Stat Lab 11/09/19 09:43 Completed Medication Summary Discontinued Medications Generic Name Dose Route Start Last Admin Trade Name Yehuda PRN Reason Stop Dose Admin Sodium Chloride 1,000 mls @ 999 mls/hr 11/09/19 09:36 11/09/19 10:48 Sodium Chloride 0.9% 1000 Ml IV 11/09/19 10:36 Infused .Q1H1M STA Infusion Sodium Chloride Confirm 11/09/19 09:47 Sodium Chloride 0.9% 1000 Ml Administered 11/09/19 09:48 Dose 1,000 mls @ ud .ROUTE .STK-MED ONE Metoclopramide HCl 10 mg 11/09/19 11:11 11/09/19 11:16 Reglan 10 Mg/2 Ml IV 11/09/19 11:12 10 mg STAT ONE Administration Metoclopramide HCl Confirm 11/09/19 11:14 Reglan 10 Mg/2 Ml Administered 11/09/19 11:15 Dose 10 mg .ROUTE .STK-MED ONE Morphine Sulfate 2 mg 11/09/19 10:16 11/09/19 10:21 Morphine Sulfate 2 Mg Inj IV 11/09/19 10:17 2 mg STAT ONE Administration Morphine Sulfate Confirm 11/09/19 10:21 Morphine Sulfate 2 Mg Inj Administered 11/09/19 10:22 Dose 2 mg .ROUTE .STK-MED ONE Morphine Sulfate 4 mg 11/09/19 11:10 11/09/19 11:16 Morphine Sulfate 4 Mg Inj IV 11/09/19 11:11 4 mg STAT ONE Administration Morphine Sulfate Confirm 11/09/19 11:14 Morphine Sulfate 4 Mg Inj Administered 11/09/19 11:15 Dose 4 mg .ROUTE .STK-MED ONE Morphine Sulfate 4 mg 11/09/19 12:31 11/09/19 12:37 Morphine Sulfate 4 Mg Inj IV 11/09/19 12:32 4 mg STAT ONE Administration Morphine Sulfate Confirm 11/09/19 12:36 Morphine Sulfate 4 Mg Inj Administered 11/09/19 12:37 Dose 4 mg .ROUTE .STK-MED ONE Ondansetron HCl 4 mg 11/09/19 10:17 11/09/19 10:22 Zofran 4 Mg/2 Ml Vial IV 11/09/19 10:18 4 mg STAT ONE Administration Ondansetron HCl Confirm 11/09/19 10:20 Zofran 4 Mg/2 Ml Vial Administered 11/09/19 10:21 Dose 4 mg .ROUTE .STK-MED ONE Lab/Rad Data: Laboratory Result Diagrams 11/09/19 10:00 11/09/19 10:00 Laboratory Results 11/09/19 11/09/19 11/09/19 Range/Units 10:00 10:00 09:43 WBC 13.2 H (4.0-10.5) K/mm3 RBC 4.56 (4.1-5.4) M/mm3 Hgb 14.7 (12.0-16.0) gm/dl Hct 45.0 (35-47) % MCV 98.7 (78-100) fl MCH 32.2 H (26-32) pg MCHC 32.7 (32-36) g/dl RDW 14.4 H (11.5-14.0) % Plt Count 947 H (150-450) K/mm3 MPV 8.3 (7.5-11.0) fl Gran % 83.1 H (36.0-66.0) % Eos # (Auto) 0.14 (0-0.5) Absolute Lymphs (auto) 1.65 (1.0-4.6) Absolute Monos (auto) 0.41 (0.0-1.3) Lymphocytes % 12.5 L (24.0-44.0) % Monocytes % 3.1 (0.0-12.0) % Eosinophils % 1.1 (0.00-5.0) % Basophils % 0.2 (0.0-0.4) % Absolute Granulocytes 10.98 H (1.4-6.9) Basophils # 0.02 (0-0.4) Sodium 142 (137-145) mmol/L Potassium 4.1 (3.5-5.1) mmol/L Chloride 111 H (98-107) mmol/L Carbon Dioxide 19 L (22-30) mmol/L Anion Gap 16.4 H (5-15) MEQ/L BUN 8 (7-17) mg/dL Creatinine 0.55 (0.52-1.04) mg/dL Estimated GFR > 60.0 ML/MIN Glucose 146 H (74-106) mg/dL Calcium 10.3 H (8.4-10.2) mg/dL Total Bilirubin 0.60 (0.2-1.3) mg/dL AST 29 (14-36) U/L ALT 20 (0-35) U/L Alkaline Phosphatase 127 H (38-126) U/L Serum Total Protein 8.3 H (6.3-8.2) g/dL Albumin 4.5 (3.5-5.0) g/dL Lipase 107 (23-300) U/L Urine Color (YELLOW) Urine Appearance (CLEAR) Urine pH (5-6) Ur Specific [place] (1.005-1.025) Urine Protein (Negative) Urine Ketones (NEGATIVE) Urine Blood (0-5) Ed/ul Urine Nitrite (NEGATIVE) Urine Bilirubin (NEGATIVE) Urine Urobilinogen (0-1) mg/dL Ur Leukocyte Esterase (NEGATIVE) Urine WBC (Auto) (0-5) /HPF Urine RBC (Auto) (0-2) /HPF U Epithel Cells (Auto) (FEW) /HPF Urine Bacteria (Auto) (NEGATIVE) /HPF Calcium Oxalate Crystal (NEGATIVE) /HPF Urine Mucus (Auto) (NEGATIVE) /HPF Urine Culture Reflexed (NO) Urine Glucose (NEGATIVE) mg/dL Urine HCG, Qual NEGATIVE (Negative) 11/09/19 Range/Units 09:43 WBC (4.0-10.5) K/mm3 RBC (4.1-5.4) M/mm3 Hgb (12.0-16.0) gm/dl Hct (35-47) % MCV (78-100) fl MCH (26-32) pg MCHC (32-36) g/dl RDW (11.5-14.0) % Plt Count (150-450) K/mm3 MPV (7.5-11.0) fl Gran % (36.0-66.0) % Eos # (Auto) (0-0.5) Absolute Lymphs (auto) (1.0-4.6) Absolute Monos (auto) (0.0-1.3) Lymphocytes % (24.0-44.0) % Monocytes % (0.0-12.0) % Eosinophils % (0.00-5.0) % Basophils % (0.0-0.4) % Absolute Granulocytes (1.4-6.9) Basophils # (0-0.4) Sodium (137-145) mmol/L Potassium (3.5-5.1) mmol/L Chloride (98-107) mmol/L Carbon Dioxide (22-30) mmol/L Anion Gap (5-15) MEQ/L BUN (7-17) mg/dL Creatinine (0.52-1.04) mg/dL Estimated GFR ML/MIN Glucose (74-106) mg/dL Calcium (8.4-10.2) mg/dL Total Bilirubin (0.2-1.3) mg/dL AST (14-36) U/L ALT (0-35) U/L Alkaline Phosphatase (38-126) U/L Serum Total Protein (6.3-8.2) g/dL Albumin (3.5-5.0) g/dL Lipase (23-300) U/L Urine Color YELLOW (YELLOW) Urine Appearance SLIGHTLY CLOUDY (CLEAR) Urine pH 6.0 (5-6) Ur Specific [place] 1.027 (1.005-1.025) Urine Protein NEGATIVE (Negative) Urine Ketones TRACE (NEGATIVE) Urine Blood NEGATIVE (0-5) Ed/ul Urine Nitrite NEGATIVE (NEGATIVE) Urine Bilirubin NEGATIVE (NEGATIVE) Urine Urobilinogen NEGATIVE (0-1) mg/dL Ur Leukocyte Esterase NEGATIVE (NEGATIVE) Urine WBC (Auto) 6-10 (0-5) /HPF Urine RBC (Auto) 0-2 (0-2) /HPF U Epithel Cells (Auto) RARE (FEW) /HPF Urine Bacteria (Auto) FEW (NEGATIVE) /HPF Calcium Oxalate Crystal 0-2 (NEGATIVE) /HPF Urine Mucus (Auto) SLIGHT (NEGATIVE) /HPF Urine Culture Reflexed NO (NO) Urine Glucose NEGATIVE (NEGATIVE) mg/dL Urine HCG, Qual (Negative) - Progress Progress: improved Progress Note: 11/09/19 13:04 Reassessed. Pain significantly improved. Patient tolerated p.o. Case discussed with Dr. Hearn, our patient's surgeon. I reviewed the CAT scan results with him in great detail. Per Dr. Hearn patient may be discharged home. Dr. Hearn states that patient had a chronic rectal prolapse. Patient had a colostomy placed. There is no anastomosis. Patient surgery was on October 31. Patient states he is ready for discharge. - Departure Departure Disposition: Home Clinical Impression: Abdominal pain, Leukocytosis, Thrombocytosis, Lung granuloma, Ileus, Nephrolithiasis, Pelvic fluid collection Condition: Stable Critical Care Time: No Referrals: GASTON CAMPUZANO [Primary Care Provider] -
[2019-11-09] MEDS ORDERED: Zofran 4 MG/2 ML VIAL ONE (10:20)
[2019-11-09] MEDS ORDERED: MORPHINE SULFATE 2 MG INJ ONE (10:21)
[2019-11-09 10:38] LABS: ALBUMIN 4.5 g/dL (3.5-5.0); ALKALINE PHOSPHATASE 127 U/L (38-126); ANION GAP 16.4 MEQ/L (5-15); BLOOD UREA NITROGEN 8 mg/dL (7-17); CHLORIDE 111 mmol/L (98-107); Calcium 10.3 mg/dL (8.4-10.2); Carbon Dioxide 19 mmol/L (22-30); Creatinine 1 0.55 mg/dL (0.52-1.04); Glucose 146 mg/dL (74-106); LIPASE 107 U/L (23-300); Potassium 4.1 mmol/L (3.5-5.1); SGOT/AST 29 U/L (14-36); SGPT/ALT 20 U/L (0-35); SODIUM 142 mmol/L (137-145); Total Protein 8.3 g/dL (6.3-8.2)
[2019-11-09] MEDS ORDERED: MORPHINE SULFATE 4 MG INJ IV ONE ×2 (11:10→12:31)
[2019-11-09 11:11] LABS: Appearance SLIGHTLY CLOUDY (CLEAR); Bacteria FEW /HPF (NEGATIVE); Bilirubin NEGATIVE (NEGATIVE); Blood NEGATIVE Ery/ul (0-5); Calcium Oxalate Crystals 0-2 /HPF (NEGATIVE); Epithelial Cells RARE /HPF (FEW); Glucose NEGATIVE (NEGATIVE); Ketones TRACE (NEGATIVE); Leukocyte Esterase NEGATIVE (NEGATIVE); Mucus SLIGHT /HPF (NEGATIVE); Nitrite NEGATIVE (NEGATIVE); Protein,Urine Dip NEGATIVE (Negative); RBC 0-2 /HPF (0-2); Specific Gravity 1.027 (1.005-1.025); Urobilinogen NEGATIVE mg/dL (0-1)
[2019-11-09] MEDS ORDERED: Reglan 10 MG/2 ML IV ONE (11:11)
[2019-11-09] MEDS ORDERED: MORPHINE SULFATE 4 MG INJ ONE ×2 (11:14→12:36)
[2019-11-09] MEDS ORDERED: Reglan 10 MG/2 ML ONE (11:14)
--- NOTE | 2019-11-09 12:20 | XRAY ---
Indication: Abdomen pain and vomiting. Status post abdominal surgery 1 week. Multiple contiguous axial images obtained through the abdomen and pelvis without contrast as ordered. Comparison: October 14, 2019. Lung bases demonstrates stable tiny left gutter calcified granuloma. No infiltrate or effusion. Heart is not enlarged. Noncontrasted stomach and bowel loops nonobstructed. Mild fluid distended small bowel loops with synchronous fluid leveling favoring ileus. Normal appendix. New left lower quadrant diverting colostomy. Posterior pelvis demonstrate new tiny fluid. No walled off fluid collection or free air. Stable congenitally absent right kidney, IVC duplication, pelvic phleboliths, cholecystectomy, hysterectomy, calcified splenic granulomas, and nonobstructing left renal micro-calculi. Remaining liver, pancreas, spleen, adrenal glands, left kidney, left ureter, and bladder are unremarkable for noncontrast exam. Stable minimal aortoiliac calcifications without AAA. Osseous structures remain intact with stable lumbosacral junction degenerative disc disease. Impression: 1. New left lower quadrant diverting colostomy. Also new tiny pelvic fluid presumed postoperative hematoma/seroma. 2. New post operative ileus. 3. Stable nonobstructing left renal micro-calculi, congenitally absent right kidney, IVC duplication, and evidence for old granulomatous disease.
[2019-11-09 13:30] VITALS: BP 118/75; PULSE 70; O2SAT 97
== END 2019-11-09 14:00 | disposition home or self-care (01) ==
LOC: ED 09:26
DX: R10.9 Unspecified abdominal pain (principal); D72.820 Lymphocytosis (symptomatic); C96.6 Unifocal Langerhans-cell histiocytosis; K56.699 Other intestinal obstruction unspecified as to partial versus complete obstruction; R18.8 Other ascites; N20.0 Calculus of kidney; Z79.899 Other long term (current) drug therapy; Z72.0 Tobacco use; F31.9 Bipolar disorder, unspecified
CPT/HCPCS: 36000; 36415; 74176; 80053; 81001; 83690; 84703; 85025; 96360; 96374; 96375; 96376; 99284; J2270; J2405

== ENCOUNTER 2019-11-11 09:44 | Emergency (ER) | payer OTHER ==
--- NOTE | 2019-11-11 09:47 | ERPHSYRPT ---
- History of Present Illness Time Seen by Provider: 11/11/19 09:47 Historian: patient Exam Limitations: no limitations Physician History: This is a 44-year-old white female who has chronic recurrent abdominal pain and vomiting episodes. On 10/25/2019 patient underwent Garcia's pouch and end colostomy. She was seen here in this emergency department on 11/09/2019 (2 days ago). A CAT scan was performed at that time and there were no acute intra- abdominal findings. Patient is out of her narcotic pain medicine. She attempted to call her surgeon today but he was out of the office. Patient's primary issues today are vomiting and associated back and abdominal pain. Patient is on Cipro antibiotic at this time. Timing/Duration: yesterday, intermittent, worse Quality: cramping Abdominal Pain Onset Location: generalized abdomen Pain Radiation: no radiation Severity of Pain-Max: moderate Severity of Pain-Current: moderate Modifying Factors: Improves With: vomiting Associated Symptoms: loss of appetite, nausea, vomiting, No chest pain, No shortness of breath Previous symptoms: same symptoms as today Allergies/Adverse Reactions: Sulfa (Sulfonamide Antibiotics) Allergy (Intermediate, Verified 11/09/19 09:45) Vomiting bee venom protein (honey bee) Allergy (Verified 11/09/19 09:45) methylprednisolone [From Solu-Medrol] Allergy (Verified 11/09/19 09:45) sumatriptan [From Imitrex] Allergy (Verified 11/09/19 09:45) ketorolac [From Toradol] Adverse Reaction (Verified 11/09/19 09:45) Nausea tramadol Adverse Reaction (Verified 11/09/19 09:45) Nausea Home Medications: Gabapentin 600 mg PO QID 06/14/19 [History] Ciprofloxacin HCl [Cipro] 500 mg PO BID 11/11/19 [History] Hx Tetanus, Diphtheria Vaccination/Date Given: Yes Hx Influenza Vaccination/Date Given: No Hx Pneumococcal Vaccination/Date Given: No Travel Risk - International Travel Have you traveled outside of the country in past 3 weeks: No - Coronavirus Screening Are you exhibiting any of the following symptoms?: No Close contact with a COVID-19 positive Pt in past 14-21 Days: No - Review of Systems Constitutional: No Symptoms Eyes: No Symptoms Ears, Nose, & Throat: No Symptoms Respiratory: No Symptoms Cardiac: No Symptoms Abdominal/Gastrointestinal: Abdominal Pain, Nausea, Vomiting Genitourinary Symptoms: Flank Pain Musculoskeletal: No Symptoms Skin: No Symptoms Neurological: No Symptoms Psychological: No Symptoms Endocrine: No Symptoms Hematologic/Lymphatic: No Symptoms Immunological/Allergic: No Symptoms All Other Systems: Reviewed and Negative - Past Medical History Pertinent Past Medical History: Yes Neurological History: Migraines ENT History: No Pertinent History Cardiac History: No Pertinent History Respiratory History: No Pertinent History Endocrine Medical History: No Pertinent History Musculoskeletal History: Arthritis GI Medical History: Gallbladder Disease History: Other Psycho-Social History: Bipolar Female Reproductive Disorders: Other - Past Surgical History Past Surgical History: Yes Neuro Surgical History: No Pertinent History Cardiac: No Pertinent History Respiratory: No Pertinent History Gastrointestinal: Cholecystectomy, Hernia Repair Genitourinary: Kidney Surgery Musculoskeletal: No Pertinent History Female Surgical History: Hysterectomy Other Surgical History: skin cancer removed twice, hernia removal - Social History Smoking Status: Current every day smoker How long have you smoked: 20 YEARS Exposure to second hand smoke: Yes Drug Use: none Patient Lives Alone: No - Nursing Vital Signs Nursing Vital Signs: Initial Vital Signs Temperature 98.3 F 11/11/19 09:54 Pulse Rate 98 H 11/11/19 09:54 Respiratory Rate 20 11/11/19 09:54 Blood Pressure 121/87 11/11/19 09:54 O2 Sat by Pulse Oximetry 97 11/11/19 09:54 Pain Scale Pain Intensity 6 - Physical Exam General Appearance: mild distress, alert, anxiety Eye Exam: PERRL/EOMI, eyes nml inspection Ears, Nose, Throat Exam: normal ENT inspection, moist mucous membranes Neck Exam: normal inspection, non-tender, supple, full range of motion Respiratory Exam: normal breath sounds, lungs clear, airway intact, No chest tenderness, No respiratory distress Cardiovascular Exam: regular rate/rhythm, normal heart sounds, normal peripheral pulses Gastrointestinal/Abdomen Exam: soft, normal bowel sounds, tenderness (Realized), No guarding, No rebound Pelvic Exam: not done Rectal Exam: not done Back Exam: normal inspection, normal range of motion, No CVA tenderness, No vertebral tenderness Extremity Exam: normal inspection, normal range of motion, pelvis stable Neurologic Exam: alert, oriented x 3, cooperative, field observer II-XII nml as tested, nml cerebellar function, nml station & gait, sensation nml Skin Exam: normal color, warm, dry Lymphatic Exam: No adenopathy SpO2 Interpretation: normal O2 Delivery: Room Air - Course Nursing assessment & vital signs reviewed: Yes Ordered Tests: Active Orders 24 hr Category Date Time Status IV Insertion STAT Care 11/11/19 10:05 Active AMYLASE Stat Lab 11/11/19 10:30 Completed CBC W DIFF Stat Lab 11/11/19 10:30 Completed CMP Stat Lab 11/11/19 10:30 Completed CULTURE,URINE Stat Lab 11/11/19 10:30 Received LIPASE Stat Lab 11/11/19 10:30 Completed Lactic Acid Stat Lab 11/11/19 10:30 Completed UA W/RFX UR CULTURE Stat Lab 11/11/19 10:30 Completed Medication Summary Discontinued Medications Generic Name Dose Route Start Last Admin Trade Name Freq PRN Reason Stop Dose Admin Hydromorphone HCl 1 mg 11/11/19 10:46 11/11/19 10:47 Hydromorphone 1 Mg/Ml Ampule IV 11/11/19 10:47 1 mg STAT ONE Administration Hydromorphone HCl Confirm 11/11/19 10:46 Hydromorphone 1 Mg/Ml Ampule Administered 11/11/19 10:47 Dose 1 mg .ROUTE .STK-MED ONE Sodium Chloride 1,000 mls @ 999 mls/hr 11/11/19 10:05 11/11/19 11:55 Sodium Chloride 0.9% 1000 Ml IV 11/11/19 11:05 Infused .Q1H1M STA Infusion Sodium Chloride Confirm 11/11/19 10:21 Sodium Chloride 0.9% 1000 Ml Administered 11/11/19 10:22 Dose 1,000 mls @ ud .ROUTE .STK-MED ONE Ceftriaxone Sodium/Dextrose 1 g in 50 mls @ 100 mls/hr 11/11/19 11:38 11/11/19 11:57 Rocephin 1 Gm-D5w 50 Ml Bag IV 11/11/19 12:07 100 mls/hr STAT STA 100 mls/hr Administration Ceftriaxone Sodium/Dextrose Confirm 11/11/19 11:56 Rocephin 1 Gm-D5w 50 Ml Bag Administered 11/11/19 11:57 Dose 1 g in 50 mls @ ud IV .STK-MED ONE Ondansetron HCl 4 mg 11/11/19 10:05 11/11/19 10:22 Zofran 4 Mg/2 Ml Vial IV 11/11/19 10:06 4 mg STAT ONE Administration Ondansetron HCl Confirm 11/11/19 10:21 Zofran 4 Mg/2 Ml Vial Administered 11/11/19 10:22 Dose 4 mg .ROUTE .STK-MED ONE Lab/Rad Data: Laboratory Result Diagrams 11/11/19 10:30 11/11/19 10:30 Laboratory Results 11/11/19 11/11/19 11/11/19 Range/Units 10:30 10:30 10:30 WBC (4.0-10.5) K/mm3 RBC (4.1-5.4) M/mm3 Hgb (12.0-16.0) gm/dl Hct (35-47) % MCV (78-100) fl MCH (26-32) pg MCHC (32-36) g/dl RDW (11.5-14.0) % Plt Count (150-450) K/mm3 MPV (7.5-11.0) fl Gran % (36.0-66.0) % Eos # (Auto) (0-0.5) Absolute Lymphs (auto) (1.0-4.6) Absolute Monos (auto) (0.0-1.3) Lymphocytes % (24.0-44.0) % Monocytes % (0.0-12.0) % Eosinophils % (0.00-5.0) % Basophils % (0.0-0.4) % Absolute Granulocytes (1.4-6.9) Basophils # (0-0.4) Sodium 144 (137-145) mmol/L Potassium 3.4 L (3.5-5.1) mmol/L Chloride 113 H (98-107) mmol/L Carbon Dioxide 20 L (22-30) mmol/L Anion Gap 14.3 (5-15) MEQ/L BUN 8 (7-17) mg/dL Creatinine 0.64 (0.52-1.04) mg/dL Estimated GFR > 60.0 ML/MIN Glucose 111 H (74-106) mg/dL Lactic Acid 1.2 (0.4-2.0) Calcium 10.3 H (8.4-10.2) mg/dL Total Bilirubin 0.60 (0.2-1.3) mg/dL AST 26 (14-36) U/L ALT 21 (0-35) U/L Alkaline Phosphatase 131 H (38-126) U/L Serum Total Protein 9.1 H (6.3-8.2) g/dL Albumin 4.8 (3.5-5.0) g/dL Amylase 96 (30-110) U/L Lipase 70 (23-300) U/L Urine Color YELLOW (YELLOW) Urine Appearance SLIGHTLY CLOUDY (CLEAR) Urine pH 6.0 (5-6) Ur Specific [place] 1.039 (1.005-1.025) Urine Protein 30 (Negative) Urine Ketones NEGATIVE (NEGATIVE) Urine Blood NEGATIVE (0-5) Ed/ul Urine Nitrite NEGATIVE (NEGATIVE) Urine Bilirubin NEGATIVE (NEGATIVE) Urine Urobilinogen NEGATIVE (0-1) mg/dL Ur Leukocyte Esterase SMALL (NEGATIVE) Urine WBC (Auto) 26-50 (0-5) /HPF Urine RBC (Auto) 0-2 (0-2) /HPF U Epithel Cells (Auto) FEW (FEW) /HPF Urine Bacteria (Auto) FEW (NEGATIVE) /HPF Calcium Oxalate Crystal 26-50 (NEGATIVE) /HPF Urine Mucus (Auto) SLIGHT (NEGATIVE) /HPF Urine Culture Reflexed YES (NO) Urine Glucose NEGATIVE (NEGATIVE) mg/dL 11/11/19 Range/Units 10:30 WBC 7.9 (4.0-10.5) K/mm3 RBC 4.85 (4.1-5.4) M/mm3 Hgb 15.7 (12.0-16.0) gm/dl Hct 47.7 H (35-47) % MCV 98.4 (78-100) fl MCH 32.4 H (26-32) pg MCHC 32.9 (32-36) g/dl RDW 14.7 H (11.5-14.0) % Plt Count 753 H (150-450) K/mm3 MPV 8.0 (7.5-11.0) fl Gran % 72.2 H (36.0-66.0) % Eos # (Auto) 0.16 (0-0.5) Absolute Lymphs (auto) 1.59 (1.0-4.6) Absolute Monos (auto) 0.42 (0.0-1.3) Lymphocytes % 20.2 L (24.0-44.0) % Monocytes % 5.3 (0.0-12.0) % Eosinophils % 2.0 (0.00-5.0) % Basophils % 0.3 (0.0-0.4) % Absolute Granulocytes 5.70 (1.4-6.9) Basophils # 0.02 (0-0.4) Sodium (137-145) mmol/L Potassium (3.5-5.1) mmol/L Chloride (98-107) mmol/L Carbon Dioxide (22-30) mmol/L Anion Gap (5-15) MEQ/L BUN (7-17) mg/dL Creatinine (0.52-1.04) mg/dL Estimated GFR ML/MIN Glucose (74-106) mg/dL Lactic Acid (0.4-2.0) Calcium (8.4-10.2) mg/dL Total Bilirubin (0.2-1.3) mg/dL AST (14-36) U/L ALT (0-35) U/L Alkaline Phosphatase (38-126) U/L Serum Total Protein (6.3-8.2) g/dL Albumin (3.5-5.0) g/dL Amylase (30-110) U/L Lipase (23-300) U/L Urine Color (YELLOW) Urine Appearance (CLEAR) Urine pH (5-6) Ur Specific [place] (1.005-1.025) Urine Protein (Negative) Urine Ketones (NEGATIVE) Urine Blood (0-5) Ed/ul Urine Nitrite (NEGATIVE) Urine Bilirubin (NEGATIVE) Urine Urobilinogen (0-1) mg/dL Ur Leukocyte Esterase (NEGATIVE) Urine WBC (Auto) (0-5) /HPF Urine RBC (Auto) (0-2) /HPF U Epithel Cells (Auto) (FEW) /HPF Urine Bacteria (Auto) (NEGATIVE) /HPF Calcium Oxalate Crystal (NEGATIVE) /HPF Urine Mucus (Auto) (NEGATIVE) /HPF Urine Culture Reflexed (NO) Urine Glucose (NEGATIVE) mg/dL - Progress Progress: improved Counseled pt/family regarding: lab results, diagnosis, need for follow-up - Departure Departure Disposition: Home Clinical Impression: Chronic abdominal pain, Recurrent vomiting Condition: Stable Critical Care Time: No Referrals: GASTON CAMPUZANO [Primary Care Provider] - Additional Instructions: Clear liquids for the next 12 to 24 hours. Call your primary care physician, your pain management physician, your general surgeon and a clipping marker for further management of your gastrointestinal complaints as well as pain control. Prescriptions: Promethazine HCl 25 mg [Phenergan 25 mg] 25 mg PO Q8H PRN PRN #10 tablet PRN Reason: Nausea/Vomiting
[2019-11-11] MEDS ORDERED: Zofran 4 MG/2 ML VIAL IV ONE (10:05)
[2019-11-11] MEDS ORDERED: Sodium Chloride 0.9% 1000 ML 1,000 ML IV STA (10:05)
[2019-11-11] MEDS ORDERED: Sodium Chloride 0.9% 1000 ML 1,000 ML ONE (10:21)
[2019-11-11] MEDS ORDERED: Zofran 4 MG/2 ML VIAL ONE (10:21)
[2019-11-11 10:39] LABS: BASOPHIL % 0.3 % (0.0-0.4); Basophil (Absolute #) 0.02 (0-0.4); Eosinophil (Absolute #) 0.16 (0-0.5); Hematocrit 47.7 % (35-47); Hemoglobin 15.7 gm/dl (12.0-16.0); Lymphocyte (Absolute #) 1.59 (1.0-4.6); Lymphocytes % 20.2 % (24.0-44.0); Mean Cell Volume 98.4 fl (78-100); Mean Corpuscular Hemoglobin 32.4 pg (26-32); Mean Corpuscular Hgb Concent. 32.9 g/dl (32-36); Monocyte (Absolute #) 0.42 (0.0-1.3); Monocytes % 5.3 % (0.0-12.0); Neutrophil % 72.2 % (36.0-66.0); Platelet Count 753 K/mm3 (150-450); Red Blood Count 4.85 M/mm3 (4.1-5.4); Red Cell Distribution Width 14.7 % (11.5-14.0); White Blood Count 7.9 K/mm3 (4.0-10.5)
[2019-11-11] MEDS ORDERED: Hydromorphone 1 mg/ml Ampule IV ONE (10:46)
[2019-11-11] MEDS ORDERED: Hydromorphone 1 mg/ml Ampule ONE (10:46)
[2019-11-11 11:01] LABS: Appearance SLIGHTLY CLOUDY (CLEAR); Bacteria FEW /HPF (NEGATIVE); Bilirubin NEGATIVE (NEGATIVE); Blood NEGATIVE Ery/ul (0-5); Calcium Oxalate Crystals 26-50 /HPF (NEGATIVE); Epithelial Cells FEW /HPF (FEW); Glucose NEGATIVE (NEGATIVE); Ketones NEGATIVE (NEGATIVE); Leukocyte Esterase SMALL (NEGATIVE); Mucus SLIGHT /HPF (NEGATIVE); Nitrite NEGATIVE (NEGATIVE); Protein,Urine Dip 30 (Negative); RBC 0-2 /HPF (0-2); Specific Gravity 1.039 (1.005-1.025); Urobilinogen NEGATIVE mg/dL (0-1); WBC 26-50 /HPF (0-5)
[2019-11-11 11:34] LABS: ALBUMIN 4.8 g/dL (3.5-5.0); ALKALINE PHOSPHATASE 131 U/L (38-126); AMYLASE 96 U/L (30-110); ANION GAP 14.3 MEQ/L (5-15); BLOOD UREA NITROGEN 8 mg/dL (7-17); CHLORIDE 113 mmol/L (98-107); Calcium 10.3 mg/dL (8.4-10.2); Carbon Dioxide 20 mmol/L (22-30); Creatinine 1 0.64 mg/dL (0.52-1.04); Glucose 111 mg/dL (74-106); LIPASE 70 U/L (23-300); Potassium 3.4 mmol/L (3.5-5.1); SGOT/AST 26 U/L (14-36); SGPT/ALT 21 U/L (0-35); SODIUM 144 mmol/L (137-145); Total Protein 9.1 g/dL (6.3-8.2)
[2019-11-11] MEDS ORDERED: ROCEPHIN 1 Gm-D5w 50 ml Bag** 1 G/50 ML IVPB IV STA (11:38)
[2019-11-11] MEDS ORDERED: ROCEPHIN 1 Gm-D5w 50 ml Bag** 1 G/50 ML IVPB IV ONE (11:56)
[2019-11-11] MEDS ORDERED: Phenergan 25 MG INJ IM ONE (12:11)
[2019-11-11] MEDS ORDERED: Phenergan 25 MG INJ ONE (12:26)
[2019-11-11 12:38] VITALS: BP 103/69; PULSE 64; O2SAT 95
== END 2019-11-11 12:39 | disposition home or self-care (01) ==
LOC: ED 09:44
DX: R10.9 Unspecified abdominal pain (principal); G89.29 Other chronic pain; R11.2 Nausea with vomiting, unspecified; R63.0 Anorexia; Z79.899 Other long term (current) drug therapy
CPT/HCPCS: 36000; 36415; 80053; 81001; 82150; 83605; 83690; 85025; 87077; 87086; 96360; 96365; 96372; 96374; 96375; 99284; J0696; J1170; J2405; J2550

== ENCOUNTER 2019-11-22 09:41 | Emergency (ER) | payer OTHER ==
[2019-11-22] MEDS ORDERED: Sodium Chloride 0.9% 1000 ML 1,000 ML IV STA ×2 (09:54→13:05)
[2019-11-22] MEDS ORDERED: Zofran 4 MG/2 ML VIAL IV ONE (09:54)
[2019-11-22] MEDS ORDERED: MORPHINE SULFATE 4 MG INJ IV ONE (09:54)
--- NOTE | 2019-11-22 10:09 | ERPHSYRPT ---
- History of Present Illness Time Seen by Provider: 11/22/19 10:00 Historian: patient Exam Limitations: no limitations Patient Subjective Stated Complaint: Pt states "I went to Dr office and they sent me here. I have been vomiting for the past two weeks." Triage Nursing Assessment: Pt presented alert and oriented X 3, ski pwd Pt ambulates with an upright steady gait, able to speak in clear full sentences pt in no apparent respiratory distress. Physician History: 44 years old female with some abdominal surgery with colostomy presented in the ER with chief complaint of generalized abdominal pain and vomiting for the last 2 weeks. Patient reports multiple episodes of nonprojectile, nonbilious vomiting with no hematemesis. She is unable to hold anything down. She feels dehydrated. Patient reports mild decrease in colostomy output. She also had a subjective feeling of fever and chills this morning. She was at primary care office and is sent in here for further evaluation. Patient reports she has been taking Phenergan with no relief or nausea or vomiting. Timing/Duration: week(s) (2), intermittent, gradual onset, worse Activities at Onset: rest Quality: sharpness Abdominal Pain Onset Location: generalized abdomen Pain Radiation: no radiation Severity of Pain-Max: moderate Severity of Pain-Current: moderate Modifying Factors: Improves With: nothing Associated Symptoms: nausea, vomiting Allergies/Adverse Reactions: Sulfa (Sulfonamide Antibiotics) Allergy (Intermediate, Verified 11/09/19 09:45) Vomiting bee venom protein (honey bee) Allergy (Verified 11/09/19 09:45) methylprednisolone [From Solu-Medrol] Allergy (Verified 11/09/19 09:45) sumatriptan [From Imitrex] Allergy (Verified 11/09/19 09:45) ketorolac [From Toradol] Adverse Reaction (Verified 11/09/19 09:45) Nausea tramadol Adverse Reaction (Verified 11/09/19 09:45) Nausea Home Medications: Gabapentin 600 mg PO QID 06/14/19 [History] Acetaminophen with Codeine [Acetaminophen-Cod #3 Tablet] 1 each PO DAILY 11/22/19 [History] Buprenorphine 1 patch TOP WEEKLY 11/22/19 [History] Hx Tetanus, Diphtheria Vaccination/Date Given: Yes Hx Influenza Vaccination/Date Given: No Hx Pneumococcal Vaccination/Date Given: No Immunizations Up to Date: Yes Travel Risk - International Travel Have you traveled outside of the country in past 3 weeks: No - Coronavirus Screening Are you exhibiting any of the following symptoms?: No Close contact with a COVID-19 positive Pt in past 14-21 Days: No - Review of Systems Constitutional: Fever, Chills, Fatigue, Weakness Eyes: No Symptoms Ears, Nose, & Throat: No Symptoms Respiratory: No Symptoms Cardiac: No Symptoms Abdominal/Gastrointestinal: Abdominal Pain, Nausea, Vomiting Genitourinary Symptoms: No Symptoms Musculoskeletal: No Symptoms Skin: No Symptoms Neurological: No Symptoms Psychological: No Symptoms Endocrine: No Symptoms Hematologic/Lymphatic: No Symptoms Immunological/Allergic: No Symptoms - Past Medical History Pertinent Past Medical History: Yes Neurological History: Migraines ENT History: No Pertinent History Cardiac History: No Pertinent History Respiratory History: No Pertinent History Endocrine Medical History: No Pertinent History Musculoskeletal History: Arthritis GI Medical History: Gallbladder Disease History: Other Psycho-Social History: Bipolar Female Reproductive Disorders: Other - Past Surgical History Past Surgical History: Yes Neuro Surgical History: No Pertinent History Cardiac: No Pertinent History Respiratory: No Pertinent History Gastrointestinal: Cholecystectomy, Hernia Repair Genitourinary: Kidney Surgery Musculoskeletal: No Pertinent History Female Surgical History: Hysterectomy Other Surgical History: skin cancer removed twice, hernia removal - Social History Smoking Status: Current every day smoker How long have you smoked: 20 YEARS Exposure to second hand smoke: Yes Drug Use: none Patient Lives Alone: No - Female History Hx Now: (unkn) - Nursing Vital Signs Nursing Vital Signs: Initial Vital Signs Temperature 98.2 F 11/22/19 09:46 Pulse Rate 114 H 11/22/19 09:46 Respiratory Rate 24 11/22/19 09:46 Blood Pressure 130/100 11/22/19 09:46 O2 Sat by Pulse Oximetry 99 11/22/19 09:46 Pain Scale Pain Intensity 10 - Physical Exam General Appearance: no apparent distress, alert Eye Exam: PERRL/EOMI, eyes nml inspection Ears, Nose, Throat Exam: normal ENT inspection, TMs normal, pharyngeal erythema Neck Exam: normal inspection, non-tender, supple, full range of motion Respiratory Exam: normal breath sounds, lungs clear Cardiovascular Exam: regular rate/rhythm, normal heart sounds, normal peripheral pulses Gastrointestinal/Abdomen Exam: soft, tenderness (Generalized with more on the left. colostomy well in place) Back Exam: normal inspection Extremity Exam: normal inspection, normal range of motion Neurologic Exam: alert, oriented x 3, cooperative Skin Exam: normal color SpO2 Interpretation: normal SpO2: 99 O2 Delivery: Room Air Ordered Tests: Active Orders 24 hr Category Date Time Status IV Insertion STAT Care 11/22/19 09:54 Active NPO (ED) STAT Care 11/22/19 09:54 Active ABDOMEN AND PELVIS W/0 CONTRAS [CT] Stat Exams 11/22/19 09:55 Completed AMYLASE Stat Lab 11/22/19 10:10 Completed CBC W DIFF Stat Lab 11/22/19 10:10 Completed CMP Stat Lab 11/22/19 10:10 Completed CULTURE,URINE Stat Lab 11/22/19 10:15 Received LIPASE Stat Lab 11/22/19 10:10 Completed UA W/RFX UR CULTURE Stat Lab 11/22/19 10:15 Completed Medication Summary Discontinued Medications Generic Name Dose Route Start Last Admin Trade Name Freq PRN Reason Stop Dose Admin Sodium Chloride 1,000 mls @ 999 mls/hr 11/22/19 09:54 11/22/19 11:17 Sodium Chloride 0.9% 1000 Ml IV 11/22/19 10:54 Infused .Q1H1M STA Infusion Sodium Chloride Confirm 11/22/19 10:11 Sodium Chloride 0.9% 1000 Ml Administered 11/22/19 10:12 Dose 1,000 mls @ ud .ROUTE .STK-MED ONE Morphine Sulfate 4 mg 11/22/19 09:54 11/22/19 10:15 Morphine Sulfate 4 Mg Inj IV 11/22/19 09:55 4 mg STAT ONE Administration Morphine Sulfate Confirm 11/22/19 10:11 Morphine Sulfate 4 Mg Inj Administered 11/22/19 10:12 Dose 4 mg .ROUTE .STK-MED ONE Ondansetron HCl 4 mg 11/22/19 09:54 11/22/19 10:15 Zofran 4 Mg/2 Ml Vial IV 11/22/19 09:55 4 mg STAT ONE Administration Ondansetron HCl Confirm 11/22/19 10:11 Zofran 4 Mg/2 Ml Vial Administered 11/22/19 10:12 Dose 4 mg .ROUTE .STK-MED ONE Lab/Rad Data: Laboratory Result Diagrams 11/22/19 10:10 11/22/19 10:10 Laboratory Results 11/22/19 11/22/1920 Range/Units 10:15 10:10 10:10 WBC 12.1 H (4.0-10.5) K/mm3 RBC 4.76 (4.1-5.4) M/mm3 Hgb 15.4 (12.0-16.0) gm/dl Hct 46.2 (35-47) % MCV 97.1 (78-100) fl MCH 32.4 H (26-32) pg MCHC 33.3 (32-36) g/dl RDW 14.4 H (11.5-14.0) % Plt Count 387 (150-450) K/mm3 MPV 9.2 (7.5-11.0) fl Gran % 77.9 H (36.0-66.0) % Eos # (Auto) 0.11 (0-0.5) Absolute Lymphs (auto) 1.32 (1.0-4.6) Absolute Monos (auto) 1.24 (0.0-1.3) Lymphocytes % 10.9 L (24.0-44.0) % Monocytes % 10.2 (0.0-12.0) % Eosinophils % 0.9 (0.00-5.0) % Basophils % 0.1 (0.0-0.4) % Absolute Granulocytes 9.42 H (1.4-6.9) Basophils # 0.01 (0-0.4) Sodium 137 (137-145) mmol/L Potassium 4.7 (3.5-5.1) mmol/L Chloride 111 H (98-107) mmol/L Carbon Dioxide 15 L* (22-30) mmol/L Anion Gap 16.2 H (5-15) MEQ/L BUN 7 (7-17) mg/dL Creatinine 0.55 (0.52-1.04) mg/dL Estimated GFR > 60.0 ML/MIN Glucose 116 H (74-106) mg/dL Calcium 9.6 (8.4-10.2) mg/dL Total Bilirubin 1.20 (0.2-1.3) mg/dL AST 44 H (14-36) U/L ALT 15 (0-35) U/L Alkaline Phosphatase 111 (38-126) U/L Serum Total Protein 8.6 H (6.3-8.2) g/dL Albumin 4.5 (3.5-5.0) g/dL Amylase 95 (30-110) U/L Lipase 41 (23-300) U/L Urine Color YELLOW (YELLOW) Urine Appearance SLIGHTLY CLOUDY (CLEAR) Urine pH 6.0 (5-6) Ur Specific [place] 1.017 (1.005-1.025) Urine Protein 30 (Negative) Urine Ketones SMALL (NEGATIVE) Urine Blood LARGE (0-5) Ed/ul Urine Nitrite NEGATIVE (NEGATIVE) Urine Bilirubin NEGATIVE (NEGATIVE) Urine Urobilinogen NEGATIVE (0-1) mg/dL Ur Leukocyte Esterase SMALL (NEGATIVE) Urine WBC (Auto) 16-25 (0-5) /HPF Urine RBC (Auto) >101 (0-2) /HPF U Hyaline Cast (Auto) 3-5 (0-2) /LPF U Epithel Cells (Auto) RARE (FEW) /HPF Urine Bacteria (Auto) MODERATE (NEGATIVE) /HPF Urine Mucus (Auto) SLIGHT (NEGATIVE) /HPF Urine Culture Reflexed YES (NO) Urine Glucose NEGATIVE (NEGATIVE) mg/dL - Progress Progress: improved, pain not gone completely, re-examined Progress Note: 11/22/19 13:06 Given IV fluids and pain medication. On reevaluation her pain is better but not completely improved. She has a white count of 12 and bicarb of 15 with no acute renal failure. She is given another bolus of fluid. I have obtained CT without contrast which did not show any acute abdominopelvic pathology. I believe patient has pain secondary to scar tissue and part of her pain is from chronic pain syndrome for which she is following up with pain management. She did not have any episode of vomiting while in the ER. I will give her Zofran to go home and take it as needed along with Phenergan. She is advised to continue with pain meds which she has at home. Discussed signs symptoms of worsening needing return to ER which she seemed understanding. Stable for discharge. Counseled pt/family regarding: lab results, diagnosis, need for follow-up, rad results - Departure Departure Disposition: Home Clinical Impression: Postoperative generalized abdominal pain, Chronic pain syndrome Nausea & vomiting Qualifiers: Vomiting type: unspecified Vomiting Intractability: non-intractable Qualified Code(s): R11.2 - Nausea with vomiting, unspecified Condition: Stable Critical Care Time: No Referrals: GASTON CAMPUZANO [Primary Care Provider] - Follow Up with PCP/3 days Instructions: Acute Abdomen (Belly Pain), Adult (DC), Nausea and Vomiting, Adult (DC) Additional Instructions: Drink plenty of fluids. Take Phenergan Zofran alternate as needed. Continue with pain meds which you have at home. Follow-up with primary care and your general surgeon for reevaluation in the next 2 to 3 days. Return to ER for any worsening. Prescriptions: Ondansetron ODT 4 MG [Zofran Odt 4 mg] 4 mg PO Q6H PRN PRN #10 tab.rapdis PRN Reason: Vomiting
[2019-11-22] MEDS ORDERED: Zofran 4 MG/2 ML VIAL ONE (10:11)
[2019-11-22] MEDS ORDERED: MORPHINE SULFATE 4 MG INJ ONE (10:11)
[2019-11-22] MEDS ORDERED: Sodium Chloride 0.9% 1000 ML 1,000 ML ONE ×2 (10:11→13:20)
[2019-11-22 10:29] LABS: Absolute Neutrophil Ct (ANC) 9.42 (1.4-6.9); BASOPHIL % 0.1 % (0.0-0.4); Basophil (Absolute #) 0.01 (0-0.4); Eosinophil % 0.9 % (0.00-5.0); Eosinophil (Absolute #) 0.11 (0-0.5); Hematocrit 46.2 % (35-47); Hemoglobin 15.4 gm/dl (12.0-16.0); Lymphocyte (Absolute #) 1.32 (1.0-4.6); Lymphocytes % 10.9 % (24.0-44.0); Mean Cell Volume 97.1 fl (78-100); Mean Corpuscular Hemoglobin 32.4 pg (26-32); Mean Corpuscular Hgb Concent. 33.3 g/dl (32-36); Mean Platelet Volume 9.2 fl (7.5-11.0); Monocyte (Absolute #) 1.24 (0.0-1.3); Monocytes % 10.2 % (0.0-12.0); Neutrophil % 77.9 % (36.0-66.0); Platelet Count 387 K/mm3 (150-450); Red Blood Count 4.76 M/mm3 (4.1-5.4); Red Cell Distribution Width 14.4 % (11.5-14.0); White Blood Count 12.1 K/mm3 (4.0-10.5)
[2019-11-22 10:40] LABS: Appearance SLIGHTLY CLOUDY (CLEAR); Bacteria MODERATE /HPF (NEGATIVE); Bilirubin NEGATIVE (NEGATIVE); Blood LARGE Ery/ul (0-5); Epithelial Cells RARE /HPF (FEW); Glucose NEGATIVE (NEGATIVE); Ketones SMALL (NEGATIVE); Leukocyte Esterase SMALL (NEGATIVE); Mucus SLIGHT /HPF (NEGATIVE); Nitrite NEGATIVE (NEGATIVE); Protein,Urine Dip 30 (Negative); Specific Gravity 1.017 (1.005-1.025); Urobilinogen NEGATIVE mg/dL (0-1)
[2019-11-22 10:41] LABS: RBC >101 /HPF (0-2)
[2019-11-22 10:45] LABS: ALBUMIN 4.5 g/dL (3.5-5.0); ALKALINE PHOSPHATASE 111 U/L (38-126); AMYLASE 95 U/L (30-110); ANION GAP 16.2 MEQ/L (5-15); BLOOD UREA NITROGEN 7 mg/dL (7-17); CHLORIDE 111 mmol/L (98-107); Calcium 9.6 mg/dL (8.4-10.2); Creatinine 1 0.55 mg/dL (0.52-1.04); Glucose 116 mg/dL (74-106); LIPASE 41 U/L (23-300); Potassium 4.7 mmol/L (3.5-5.1); SGOT/AST 44 U/L (14-36); SGPT/ALT 15 U/L (0-35); SODIUM 137 mmol/L (137-145); Total Protein 8.6 g/dL (6.3-8.2)
[2019-11-22 10:48] LABS: Carbon Dioxide 15 mmol/L (22-30)
--- NOTE | 2019-11-22 12:43 | XRAY ---
Exam: CT of the abdomen and pelvis without IV contrast from 11/22/2019. CTDI: 4.23 mGy Comparison: CT of the abdomen and pelvis without IV contrast from 11/09/2019. Indication: Left-sided abdominal pain with nausea/vomiting for 2 weeks. The patient has a history of prior colostomy, hysterectomy, and cholecystectomy. Technique: Non-IV contrast axial images were obtained throughout the abdomen and pelvis. Reconstructed coronal and sagittal images were created and reviewed. Findings: A colostomy bag is again seen overlying the anterior left midabdomen to the left of L4 representing no change. The lung bases are clear except for a calcified granuloma at the medial left lung base. I see no significant bowel distention to suggest bowel obstruction. There is no free intraperitoneal air. The liver appears unremarkable on this non-IV contrast study. Surgical clips consistent with prior cholecystectomy are seen. A few scattered splenic calcified granulomas are seen. The spleen is not enlarged. The pancreas appears grossly unremarkable. The adrenal glands appear normal. 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 There appears to be some compensatory hypertrophy of the left kidney which measures 15.6 cm in greatest craniocaudal dimension on the coronal images. A couple nonobstructing stones are seen within the lower pole of the left kidney representing no change. No hydronephrosis is seen. Some atherosclerotic vascular calcification is seen within the distal abdominal aorta and proximal iliac arteries. No abdominal aortic aneurysm is seen. 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 No abnormal retroperitoneal lymphadenopathy is seen. The appendix appears unremarkable within the right lower quadrant. Prior minimal posterior pelvic fluid has diminished suggesting minimal hematoma or seroma. Some small calcified phleboliths are seen within the pelvis. The uterus is surgically absent. The urinary bladder appears unremarkable. No other pelvic mass or fluid collection is seen. Mild degenerative disc disease is seen at L5-S1. Minimal osteophyte formation is seen within the lower thoracic spine. No acute fracture or aggressive bone lesion is seen. There is a slight rotary convexity of the mid lumbar spine toward the left. Impression: 1. I again see a diverting colostomy within the left mid abdomen to the left of L4. 2. I see no findings of bowel obstruction or significant ileus. A small amount of fluid within the lower posterior pelvis has decreased in size. This probably represents a minimal postoperative hematoma/seroma. 3. Status post cholecystectomy and hysterectomy. 4. 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 This is unchanged. 5. No other acute process is seen within the abdomen or pelvis. 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
[2019-11-22 14:15] VITALS: BP 114/73
[2019-11-22 14:30] VITALS: PULSE 72; O2SAT 97
== END 2019-11-22 14:39 | disposition home or self-care (01) ==
LOC: ED 09:41
DX: G89.18 Other acute postprocedural pain (principal); R10.84 Generalized abdominal pain; G89.4 Chronic pain syndrome; R11.2 Nausea with vomiting, unspecified; Z85.828 Personal history of other malignant neoplasm of skin
CPT/HCPCS: 36000; 36415; 74176; 80053; 81001; 82150; 83690; 85025; 87077; 87086; 87186; 96360; 96361; 96374; 96375; 99284; J2270; J2405

== ENCOUNTER 2019-12-10 17:17 | Emergency (ER) | payer OTHER ==
[2019-12-10] MEDS ORDERED: Sodium Chloride 0.9% 1000 ML 1,000 ML IV STA (17:48)
[2019-12-10] MEDS ORDERED: Zofran 4 MG/2 ML VIAL IV ONE (17:48)
[2019-12-10] MEDS ORDERED: MORPHINE SULFATE 4 MG INJ IV ONE ×2 (17:48→19:01)
[2019-12-10] MEDS ORDERED: MORPHINE SULFATE 4 MG INJ ONE ×2 (17:52→19:30)
[2019-12-10] MEDS ORDERED: Sodium Chloride 0.9% 1000 ML 1,000 ML ONE (17:52)
[2019-12-10] MEDS ORDERED: Zofran 4 MG/2 ML VIAL ONE (17:52)
[2019-12-10 18:00] LABS: ALBUMIN 4.2 g/dL (3.5-5.0); ALKALINE PHOSPHATASE 95 U/L (38-126); ANION GAP 15.3 MEQ/L (5-15); BLOOD UREA NITROGEN 19 mg/dL (7-17); CHLORIDE 106 mmol/L (98-107); Calcium 9.3 mg/dL (8.4-10.2); Carbon Dioxide 21 mmol/L (22-30); Creatinine 1 0.75 mg/dL (0.52-1.04); Glucose 111 mg/dL (74-106); LIPASE 81 U/L (23-300); Potassium 3.8 mmol/L (3.5-5.1); SGOT/AST 23 U/L (14-36); SGPT/ALT 14 U/L (0-35); SODIUM 139 mmol/L (137-145); Total Protein 7.6 g/dL (6.3-8.2)
[2019-12-10 18:07] LABS: Appearance SLIGHTLY CLOUDY (CLEAR); Bacteria RARE /HPF (NEGATIVE); Bilirubin NEGATIVE (NEGATIVE); Blood LARGE Ery/ul (0-5); Glucose NEGATIVE (NEGATIVE); Ketones NEGATIVE (NEGATIVE); Leukocyte Esterase TRACE (NEGATIVE); Nitrite NEGATIVE (NEGATIVE); Protein,Urine Dip 30 (Negative); Specific Gravity 1.026 (1.005-1.025); Urobilinogen NEGATIVE mg/dL (0-1); WBC 26-50 /HPF (0-5)
[2019-12-10 18:09] LABS: Absolute Neutrophil Ct (ANC) 10.59 (1.4-6.9); BASOPHIL % 0.1 % (0.0-0.4); Basophil (Absolute #) 0.01 (0-0.4); Eosinophil % 2.7 % (0.00-5.0); Eosinophil (Absolute #) 0.39 (0-0.5); Hematocrit 40.1 % (35-47); Lymphocyte (Absolute #) 2.34 (1.0-4.6); Lymphocytes % 16.2 % (24.0-44.0); Mean Cell Volume 98.3 fl (78-100); Mean Corpuscular Hemoglobin 31.9 pg (26-32); Mean Corpuscular Hgb Concent. 32.4 g/dl (32-36); Mean Platelet Volume 9.7 fl (7.5-11.0); Monocyte (Absolute #) 1.11 (0.0-1.3); Monocytes % 7.7 % (0.0-12.0); Neutrophil % 73.3 % (36.0-66.0); Platelet Count 389 K/mm3 (150-450); Red Blood Count 4.08 M/mm3 (4.1-5.4); Red Cell Distribution Width 13.9 % (11.5-14.0); White Blood Count 14.4 K/mm3 (4.0-10.5)
[2019-12-10 18:17] LABS: RBC >101 /HPF (0-2)
--- NOTE | 2019-12-10 18:46 | ERPHSYRPT ---
- History of Present Illness Time Seen by Provider: 12/10/19 17:42 Historian: patient, family Exam Limitations: no limitations Patient Subjective Stated Complaint: Pt had an colostomy put in 7 weeks ago and pt developed a hard lump to the right of her incision above her umbilicus and has not had any feces out for 2 days, blood is in her bag Triage Nursing Assessment: Pt brought in by a friend, tachycardic, left flank pain, appears to have blood in urine, rates pain 9/10, stoma red in appearance, no bowel movements for 2 days, nauseous Physician History: 44 years old female with history of colostomy almost 7 weeks ago presented in the ER with chief complaint of generalized abdominal pain more in the periumbilical area for the last 2 days with feeling as if there is a hard lump in there. Moderate intensity sharp pain without any significant aggravating or relieving factors. Patient report inability to have any bowel movement for the last 3 days. She was recently admitted at [facility] for similar symptoms. She has been taking laxatives with no improvement. Has nausea but no vomiting. Timing/Duration: day(s), intermittent, worse Activities at Onset: rest Quality: sharpness Abdominal Pain Onset Location: periumbilical Pain Radiation: no radiation Severity of Pain-Max: moderate Severity of Pain-Current: moderate Modifying Factors: Improves With: nothing Associated Symptoms: back, nausea Previous symptoms: same symptoms as today Allergies/Adverse Reactions: Sulfa (Sulfonamide Antibiotics) Allergy (Intermediate, Verified 12/10/19 17:46) Vomiting bee venom protein (honey bee) Allergy (Verified 12/10/19 17:46) methylprednisolone [From Solu-Medrol] Allergy (Verified 12/10/19 17:46) sumatriptan [From Imitrex] Allergy (Verified 12/10/19 17:46) ketorolac [From Toradol] Adverse Reaction (Verified 12/10/19 17:46) Nausea tramadol Adverse Reaction (Verified 12/10/19 17:46) Nausea Home Medications: Gabapentin 600 mg PO QID 06/14/19 [History] Acetaminophen with Codeine [Acetaminophen-Cod #3 Tablet] 1 each PO DAILY 11/22/19 [History] Buprenorphine 1 patch TOP WEEKLY 11/22/19 [History] Hx Tetanus, Diphtheria Vaccination/Date Given: Yes Hx Influenza Vaccination/Date Given: No Hx Pneumococcal Vaccination/Date Given: No Travel Risk - International Travel Have you traveled outside of the country in past 3 weeks: No - Coronavirus Screening Are you exhibiting any of the following symptoms?: No Close contact with a COVID-19 positive Pt in past 14-21 Days: No - Review of Systems Constitutional: No Symptoms Eyes: No Symptoms Ears, Nose, & Throat: No Symptoms Respiratory: No Symptoms Cardiac: No Symptoms Abdominal/Gastrointestinal: Abdominal Pain, Nausea, Constipation Genitourinary Symptoms: No Symptoms Musculoskeletal: Back Pain Skin: No Symptoms Neurological: No Symptoms Psychological: No Symptoms Endocrine: No Symptoms Hematologic/Lymphatic: No Symptoms - Past Medical History Pertinent Past Medical History: Yes Neurological History: Migraines ENT History: No Pertinent History Cardiac History: No Pertinent History Respiratory History: No Pertinent History Endocrine Medical History: No Pertinent History Musculoskeletal History: Arthritis GI Medical History: Gallbladder Disease History: Other Psycho-Social History: Bipolar Female Reproductive Disorders: Other - Past Surgical History Past Surgical History: Yes Neuro Surgical History: No Pertinent History Cardiac: No Pertinent History Respiratory: No Pertinent History Gastrointestinal: Cholecystectomy, Hernia Repair Genitourinary: Kidney Surgery Musculoskeletal: No Pertinent History Female Surgical History: Hysterectomy Other Surgical History: skin cancer removed twice, hernia removal - Social History Smoking Status: Current every day smoker How long have you smoked: 20 YEARS Exposure to second hand smoke: Yes Drug Use: none Patient Lives Alone: No - Female History Hx Now: No - Nursing Vital Signs Nursing Vital Signs: Initial Vital Signs Temperature 98.3 F 12/10/19 17:19 Pulse Rate 114 H 12/10/19 17:19 Blood Pressure 124/75 12/10/19 17:19 O2 Sat by Pulse Oximetry 95 12/10/19 17:19 Pain Scale Pain Intensity 8 - Physical Exam General Appearance: no apparent distress Eye Exam: PERRL/EOMI, eyes nml inspection Ears, Nose, Throat Exam: normal ENT inspection, pharynx normal Neck Exam: normal inspection, non-tender, supple, full range of motion Respiratory Exam: normal breath sounds, lungs clear Cardiovascular Exam: regular rate/rhythm, normal heart sounds Gastrointestinal/Abdomen Exam: soft, tenderness (Lies more along the midline incision with some guarding.), guarding, other (Colostomy bag well applied. Protruding/prolapse with empty colostomy bag.), No normal bowel sounds Back Exam: normal inspection, No CVA tenderness Extremity Exam: normal inspection Neurologic Exam: alert, oriented x 3, cooperative Skin Exam: normal color SpO2 Interpretation: normal SpO2: 94 O2 Delivery: Room Air - Course Nursing assessment & vital signs reviewed: Yes Ordered Tests: Active Orders 24 hr Category Date Time Status IV Insertion STAT Care 12/10/19 17:48 Active NPO (ED) STAT Care 12/10/19 17:48 Active ABDOMEN AND PELVIS W/0 CONTRAS [CT] Stat Exams 12/10/19 17:48 Taken CBC W DIFF Stat Lab 12/10/19 17:51 Completed CMP Stat Lab 12/10/19 17:51 Completed CULTURE,URINE Stat Lab 12/10/19 17:53 Received LIPASE Stat Lab 12/10/19 17:51 Completed UA W/RFX UR CULTURE Stat Lab 12/10/19 17:53 Completed Medication Summary Discontinued Medications Generic Name Dose Route Start Last Admin Trade Name Freq PRN Reason Stop Dose Admin Cephalexin HCl 500 mg 12/10/19 20:51 Keflex 500 Mg PO 12/10/19 20:52 STAT ONE Sodium Chloride 1,000 mls @ 999 mls/hr 12/10/19 17:48 12/10/19 18:59 Sodium Chloride 0.9% 1000 Ml IV 12/10/19 18:48 Infused .Q1H1M STA Infusion Sodium Chloride Confirm 12/10/19 17:52 Sodium Chloride 0.9% 1000 Ml Administered 12/10/19 17:53 Dose 1,000 mls @ ud .ROUTE .STK-MED ONE Morphine Sulfate 4 mg 12/10/19 17:48 12/10/19 17:53 Morphine Sulfate 4 Mg Inj IV 12/10/19 17:49 4 mg STAT ONE Administration Morphine Sulfate Confirm 12/10/19 17:52 Morphine Sulfate 4 Mg Inj Administered 12/10/19 17:53 Dose 4 mg .ROUTE .STK-MED ONE Morphine Sulfate 4 mg 12/10/19 19:01 12/10/19 19:31 Morphine Sulfate 4 Mg Inj IV 12/10/19 19:02 4 mg STAT ONE Administration Morphine Sulfate Confirm 12/10/19 19:30 Morphine Sulfate 4 Mg Inj Administered 12/10/19 19:31 Dose 4 mg .ROUTE .STK-MED ONE Ondansetron HCl 4 mg 12/10/19 17:48 12/10/19 17:54 Zofran 4 Mg/2 Ml Vial IV 12/10/19 17:49 4 mg STAT ONE Administration Ondansetron HCl Confirm 12/10/19 17:52 Zofran 4 Mg/2 Ml Vial Administered 12/10/19 17:53 Dose 4 mg .ROUTE .STK-MED ONE Promethazine HCl 12.5 mg 12/10/19 19:09 12/10/19 19:31 Phenergan 25 Mg Inj IM 12/10/19 19:10 12.5 mg STAT ONE Administration Promethazine HCl Confirm 12/10/19 19:30 Phenergan 25 Mg Inj Administered 12/10/19 19:31 Dose 25 mg .ROUTE .STK-MED ONE Lab/Rad Data: Laboratory Result Diagrams 12/10/19 17:51 12/10/19 17:51 Laboratory Results 12/10/19 12/10/19 12/10/19 Range/Units 17:53 17:51 17:51 WBC 14.4 H (4.0-10.5) K/mm3 RBC 4.08 L (4.1-5.4) M/mm3 Hgb 13.0 (12.0-16.0) gm/dl Hct 40.1 (35-47) % MCV 98.3 (78-100) fl MCH 31.9 (26-32) pg MCHC 32.4 (32-36) g/dl RDW 13.9 (11.5-14.0) % Plt Count 389 (150-450) K/mm3 MPV 9.7 (7.5-11.0) fl Gran % 73.3 H (36.0-66.0) % Eos # (Auto) 0.39 (0-0.5) Absolute Lymphs (auto) 2.34 (1.0-4.6) Absolute Monos (auto) 1.11 (0.0-1.3) Lymphocytes % 16.2 L (24.0-44.0) % Monocytes % 7.7 (0.0-12.0) % Eosinophils % 2.7 (0.00-5.0) % Basophils % 0.1 (0.0-0.4) % Absolute Granulocytes 10.59 H (1.4-6.9) Basophils # 0.01 (0-0.4) Sodium 139 (137-145) mmol/L Potassium 3.8 (3.5-5.1) mmol/L Chloride 106 (98-107) mmol/L Carbon Dioxide 21 L (22-30) mmol/L Anion Gap 15.3 H (5-15) MEQ/L BUN 19 H (7-17) mg/dL Creatinine 0.75 (0.52-1.04) mg/dL Estimated GFR > 60.0 ML/MIN Glucose 111 H (74-106) mg/dL Calcium 9.3 (8.4-10.2) mg/dL Total Bilirubin 0.30 (0.2-1.3) mg/dL AST 23 (14-36) U/L ALT 14 (0-35) U/L Alkaline Phosphatase 95 (38-126) U/L Serum Total Protein 7.6 (6.3-8.2) g/dL Albumin 4.2 (3.5-5.0) g/dL Lipase 81 (23-300) U/L Urine Color YELLOW (YELLOW) Urine Appearance SLIGHTLY CLOUDY (CLEAR) Urine pH 5.0 (5-6) Ur Specific [place] 1.026 (1.005-1.025) Urine Protein 30 (Negative) Urine Ketones NEGATIVE (NEGATIVE) Urine Blood LARGE (0-5) Ed/ul Urine Nitrite NEGATIVE (NEGATIVE) Urine Bilirubin NEGATIVE (NEGATIVE) Urine Urobilinogen NEGATIVE (0-1) mg/dL Ur Leukocyte Esterase TRACE (NEGATIVE) Urine WBC (Auto) 26-50 (0-5) /HPF Urine RBC (Auto) >101 (0-2) /HPF U Epithel Cells (Auto) NONE (FEW) /HPF Urine Bacteria (Auto) RARE (NEGATIVE) /HPF Urine Culture Reflexed YES (NO) Urine Glucose NEGATIVE (NEGATIVE) mg/dL - Progress Progress: improved, re-examined Progress Note: 12/10/19 20:51 44 years old is evaluated in the ER for abdominal pain with no colostomy output for the last 3 days despite taking laxatives. She is given IV fluid and pain medication, on reevaluation her pain is much better. She has no peritoneal signs. I have obtained CT which showed moderate fecal load but no obstruction. While in the ER she has a small bowel movements. She is advised to continue with MiraLAX and laxative on a regular basis and drink plenty of fluids as she was mildly dehydrated. Work-up otherwise is nonspecific. Do not think patient needs any further work-up or surgical consult today and is stable for discharge with outpatient follow-up with primary care and general surgery. Urinalysis consistent with UTI and started on Keflex. Discussed symptoms sign of worsening needing return to ER which she seemed understanding. Stable for discharge. 12/10/19 20:53 Counseled pt/family regarding: lab results, diagnosis, need for follow-up, rad results - Departure Departure Disposition: Home Clinical Impression: Abdominal pain Qualifiers: Abdominal location: generalized Qualified Code(s): R10.84 - Generalized abdominal pain UTI (urinary tract infection) Qualifiers: Urinary tract infection type: site unspecified Hematuria presence: without hematuria Qualified Code(s): N39.0 - Urinary tract infection, site not specified Constipation Qualifiers: Constipation type: other constipation type Qualified Code(s): K59.09 - Other constipation Condition: Stable Critical Care Time: No Referrals: GASTON CAMPUZANO [Primary Care Provider] - Follow Up with PCP/3 days TIFFANIE PARRISH MD [ASSOCIATE STAFF] - Follow Up with PCP/3 days Instructions: Acute Abdomen (Belly Pain), Adult (DC) Additional Instructions: Drink plenty of fluids. Take Tylenol as needed for pain. Continue with MiraLAX and laxative as recommended by general surgery. Follow-up with primary care and general surgery for reevaluation. Return to ER for any worsening. Prescriptions: Cephalexin Mh 500 mg [Keflex 500 mg] 500 mg PO TID #21 capsule
[2019-12-10] MEDS ORDERED: Phenergan 25 MG INJ IM ONE (19:09)
[2019-12-10] MEDS ORDERED: Phenergan 25 MG INJ ONE (19:30)
[2019-12-10] MEDS ORDERED: KEFLEX 500 MG PO ONE (20:51)
[2019-12-10] MEDS ORDERED: KEFLEX 500 MG ONE (20:56)
[2019-12-10 21:16] VITALS: BP 112/75; PULSE 89; O2SAT 98
--- NOTE | 2019-12-10 21:36 | XRAY ---
Indication: Abdomen pain. Obstruction. Impaction. Multiple contiguous axial images obtained through the abdomen and pelvis without contrast as ordered. Comparison: Multiple priors, most recent November 22, 2019. Lung bases remain clear with stable left medial gutter calcified granuloma. Heart is not enlarged. Noncontrasted stomach and bowel loops remain nonobstructed with stable left lower quadrant diverting colostomy. Normal appendix. There is now moderate diffuse scattered colonic fecal debris throughout. No free fluid/air. Stable nonobstructing left renal micro-calculi, splenic calcified granulomas, congenitally absent right kidney, IVC duplication, cholecystectomy, and hysterectomy. Remaining liver, pancreas, spleen adrenal glands, left kidney, left ureter, and bladder appear unremarkable for noncontrast exam. Minimal aortoiliac calcifications without AAA. Osseous structures intact again with lumbosacral degenerative disc disease. Impression: 1. New diffuse fecal stasis without obstruction. 2. Stable nonobstructing left renal micro-calculi, congenitally absent right kidney, IVC duplication, and evidence for old granulomatous disease.
== END 2019-12-10 21:13 | disposition home or self-care (01) ==
LOC: ED 17:17
DX: R10.84 Generalized abdominal pain (principal); N39.0 Urinary tract infection, site not specified; K59.09 Other constipation
CPT/HCPCS: 36000; 36415; 74176; 80053; 81001; 83690; 85025; 87086; 96360; 96372; 96374; 96375; 96376; 99284; J2270; J2405; J2550; A9270-GY

== ENCOUNTER 2020-01-03 14:12 | Emergency (ER) | payer OTHER ==
[2020-01-03 15:22] VITALS: BP 115/76; PULSE 96; O2SAT 97
[2020-01-03 15:31] LABS: Appearance SLIGHTLY CLOUDY (CLEAR); Bilirubin NEGATIVE (NEGATIVE); Blood LARGE Ery/ul (0-5); Epithelial Cells RARE /HPF (FEW); Glucose NEGATIVE (NEGATIVE); Ketones NEGATIVE (NEGATIVE); Leukocyte Esterase NEGATIVE (NEGATIVE); Nitrite NEGATIVE (NEGATIVE); Protein,Urine Dip 30 (Negative); Specific Gravity 1.016 (1.005-1.025); Urobilinogen NEGATIVE mg/dL (0-1)
[2020-01-03 15:32] LABS: RBC >101 /HPF (0-2)
[2020-01-03] MEDS ORDERED: KEFLEX 500 MG PO ONE (15:43)
--- NOTE | 2020-01-03 15:43 | ERPHSYRPT ---
- History of Present Illness Time Seen by Provider: 01/03/20 14:31 Source: patient Exam Limitations: no limitations Patient Subjective Stated Complaint: pt reports recurrent UTI's, states today she is having urinary s/s. painful urination and blood in urine starting this m orning. pt also reports nausea left abd/flank pain. Triage Nursing Assessment: pt is aox3, pupils perrl, afebrile, resps easy and non labored, radial pulses strong and equal, cap refill < 3 seconds, pt abd soft, tender to the left lower quad, radiating to the left flank. pain sharp in nature, pt skin pale warm dry. Physician History: 44 years old female with history of multiple UTIs in the past, multiple abdominal surgeries status post permanent colostomy presented in the ER with chief complaint of burning urination for the last 2 days with increased frequency and some suprapubic discomfort. Patient denies any fever or chills. She has mild left flank pain which according to patient she has always have it. No fever or chills reported. Has nausea but no vomiting. Timing/Duration: day(s) (2), gradual onset, worse Activites at Onset: rest Quality: burning Onset Location: suprapubic, urethral Pain Radiation: none Severity of Pain-Max: moderate Severity of Pain-Current: moderate Prior abdominal problems: recent trauma Sexual intercourse history: non-contributory Modifying Factors: Improves With: urinating Associated Symptoms: urinary frequency, No fever, No chills Allergies/Adverse Reactions: Sulfa (Sulfonamide Antibiotics) Allergy (Intermediate, Verified 01/03/20 14:25) Vomiting bee venom protein (honey bee) Allergy (Verified 01/03/20 14:25) methylprednisolone [From Solu-Medrol] Allergy (Verified 01/03/20 14:25) sumatriptan [From Imitrex] Allergy (Verified 01/03/20 14:25) ketorolac [From Toradol] Adverse Reaction (Verified 01/03/20 14:25) Nausea tramadol Adverse Reaction (Verified 01/03/20 14:25) Nausea Home Medications: Gabapentin 600 mg PO QID 06/14/19 [History] Acetaminophen with Codeine [Acetaminophen-Cod #3 Tablet] 1 each PO DAILY 11/22/19 [History] Buprenorphine 1 patch TOP WEEKLY 11/22/19 [History] Hx Tetanus, Diphtheria Vaccination/Date Given: Yes Hx Influenza Vaccination/Date Given: No Hx Pneumococcal Vaccination/Date Given: No Travel Risk - International Travel Have you traveled outside of the country in past 3 weeks: No - Coronavirus Screening Are you exhibiting any of the following symptoms?: No Close contact with a COVID-19 positive Pt in past 14-21 Days: No - Review of Systems Constitutional: No Symptoms Eyes: No Symptoms Ears, Nose, & Throat: No Symptoms Respiratory: No Symptoms Cardiac: No Symptoms Abdominal/Gastrointestinal: Abdominal Pain Genitourinary Symptoms: Dysuria, Frequency, Hematuria Skin: No Symptoms Neurological: No Symptoms Psychological: No Symptoms Endocrine: No Symptoms Hematologic/Lymphatic: No Symptoms - Past Medical History Pertinent Past Medical History: Yes Neurological History: Migraines ENT History: No Pertinent History Cardiac History: No Pertinent History Respiratory History: No Pertinent History Endocrine Medical History: No Pertinent History Musculoskeletal History: Arthritis GI Medical History: Gallbladder Disease History: Other Psycho-Social History: Bipolar Female Reproductive Disorders: Other - Past Surgical History Past Surgical History: Yes Neuro Surgical History: No Pertinent History Cardiac: No Pertinent History Respiratory: No Pertinent History Gastrointestinal: Cholecystectomy, Hernia Repair Genitourinary: Kidney Surgery Musculoskeletal: No Pertinent History Female Surgical History: Hysterectomy Other Surgical History: skin cancer removed twice, hernia removal - Social History Smoking Status: Current every day smoker How long have you smoked: 20 YEARS Exposure to second hand smoke: Yes Drug Use: none Patient Lives Alone: No - Female History Hx Last Menstrual Period: hyst Hx Now: No - Nursing Vital Signs Nursing Vital Signs: Initial Vital Signs Temperature 97.9 F 01/03/20 14:17 Pulse Rate 105 H 01/03/20 14:17 Respiratory Rate 20 01/03/20 14:17 Blood Pressure 130/91 01/03/20 14:17 O2 Sat by Pulse Oximetry 95 01/03/20 14:17 Pain Scale Pain Intensity 9 - Physical Exam General Appearance: no apparent distress Eye Exam: eyes nml inspection Neck Exam: normal inspection, supple Respiratory Exam: normal breath sounds, lungs clear Cardiovascular Exam: regular rate/rhythm, normal heart sounds Gastrointestinal/Abdomen Exam: soft, normal bowel sounds, other (Colostomy bag well applied.), No tenderness Back Exam: normal inspection Extremity Exam: normal inspection Neurologic Exam: alert, oriented x 3, cooperative Skin Exam: normal color SpO2 Interpretation: normal SpO2: 97 O2 Delivery: Room Air Ordered Tests: Active Orders 24 hr Category Date Time Status CULTURE,URINE Stat Lab 01/03/20 14:28 Received UA W/RFX UR CULTURE Stat Lab 01/03/20 14:28 Completed Medication Summary Discontinued Medications Generic Name Dose Route Start Last Admin Trade Name Yehuda PRN Reason Stop Dose Admin Hydrocodone Bitart/Acetaminophen 1 tab 01/03/20 15:52 01/03/20 16:03 [place] 5/325 Mg PO 01/03/20 15:53 1 tab STAT ONE Administration Hydrocodone Bitart/Acetaminophen Confirm 01/03/20 16:00 [place] 5/325 Mg Administered 01/03/20 16:01 Dose 1 tab .ROUTE .STK-MED ONE Cephalexin HCl 500 mg 01/03/20 15:43 01/03/20 15:48 Keflex 500 Mg PO 01/03/20 15:44 500 mg STAT ONE Administration Cephalexin HCl Confirm 01/03/20 15:46 Keflex 500 Mg Administered 01/03/20 15:47 Dose 500 mg .ROUTE .STK-MED ONE Lab/Rad Data: Laboratory Results 01/03/20 Range/Units 14:28 Urine Color YELLOW (YELLOW) Urine Appearance SLIGHTLY CLOUDY (CLEAR) Urine pH 6.0 (5-6) Ur Specific [place] 1.016 (1.005-1.025) Urine Protein 30 (Negative) Urine Ketones NEGATIVE (NEGATIVE) Urine Blood LARGE (0-5) Ed/ul Urine Nitrite NEGATIVE (NEGATIVE) Urine Bilirubin NEGATIVE (NEGATIVE) Urine Urobilinogen NEGATIVE (0-1) mg/dL Ur Leukocyte Esterase NEGATIVE (NEGATIVE) Urine WBC (Auto) 3-5 (0-5) /HPF Urine RBC (Auto) >101 (0-2) /HPF U Epithel Cells (Auto) RARE (FEW) /HPF Urine Culture Reflexed YES (NO) Urine Glucose NEGATIVE (NEGATIVE) mg/dL - Progress Progress: unchanged Air Movement: good Progress Note: 01/03/20 15:41 I believe patient is having cystitis/urethritis. Will start on Keflex. Recommended taking pain medications at home as needed. Outpatient follow-up. Blood Culture(s) Obtained: No Antibiotics given: Yes Counseled pt/family regarding: lab results, diagnosis, need for follow-up - Departure Departure Disposition: Home Clinical Impression: Urethritis Condition: Stable Critical Care Time: No Referrals: GASTON CAMPUZANO [Primary Care Provider] - Follow Up with PCP/3 days Instructions: Urinary Tract Infection, Adult (DC) Additional Instructions: Take Tylenol as needed for pain. Follow-up with primary care for reevaluation. Return to ER for worsening pain, fever chills etc. Prescriptions: Cephalexin Mh 500 mg [Keflex 500 mg] 500 mg PO TID #21 capsule Phenazopyridine HCl 200 mg [Pyridium 200 mg] 200 mg PO TID #6 tablet
[2020-01-03] MEDS ORDERED: KEFLEX 500 MG ONE (15:46)
[2020-01-03] MEDS ORDERED: NORCO 5/325 MG PO ONE (15:52)
[2020-01-03] MEDS ORDERED: NORCO 5/325 MG ONE (16:00)
== END 2020-01-03 16:33 | disposition home or self-care (01) ==
LOC: ED 14:12
DX: N34.2 Other urethritis (principal)
CPT/HCPCS: 81001; 87086; 99283; A9270-GY

== ENCOUNTER 2020-01-13 14:55 | Emergency (ER) | payer OTHER ==
[2020-01-13] MEDS ORDERED: MORPHINE SULFATE 4 MG INJ IM ONE (15:20)
[2020-01-13] MEDS ORDERED: ZOFRAN ODT 4 MG PO ONE (15:21)
[2020-01-13] MEDS ORDERED: BENADRYL 50 MG/ML IM ONE (15:22)
[2020-01-13] MEDS ORDERED: BENADRYL 50 MG/ML ONE (15:25)
[2020-01-13] MEDS ORDERED: ZOFRAN ODT 4 MG ONE (15:25)
[2020-01-13] MEDS ORDERED: MORPHINE SULFATE 4 MG INJ ONE (15:25)
--- NOTE | 2020-01-13 15:34 | ERPHSYRPT ---
- History of Present Illness Time Seen by Provider: 01/13/20 15:15 Source: patient Exam Limitations: no limitations Patient Subjective Stated Complaint: Pt states "I am having a horrible migraine. I have a history and usually take fioracet but I am out of them. I useally get what they call a migraine coctail to make it better. " Triage Nursing Assessment: Pt presented alert and oriented X 3, skin pwd. Pt ambulates with an upright steady gait, able to speak in clear full sentencse pt in no apparant respiratory distress. Physician History: Patient is a 44-year-old female presents to our ED for a migraine. Patient has history of migraine headaches. Patient's headache today is typical of her usual migraine headaches. Symptoms started today. Symptoms have been slowly progressive. Patient states that loud noises and bright lights worsen her symptoms. Patient feels nauseous. No vomiting. The headache is not the worst that she has ever experienced. No associated numbness tingling or weakness. No blurred vision. No nuchal rigidity. No trauma. Patient voices no other complaints concerns at this time. Patient denies the possibility of . Patient states she has had a hysterectomy. Patient has no urinary complaints or symptomology. Timing/Duration: today Quality: aching Head Pain Location: global Severity of Pain-Max: moderate Severity of Pain-Current: mild Recent Head Trauma: frequent headaches Modifying Factors: Improves With: exposure to light, noise Associated Symptoms: sensitive to light, No confusion, No dizziness, No fatigue, No facial pain, No fever/chills, No light-headedness, No loss of consciousness, No nasal congestion, No neck pain, No sweating, No stiff neck, No vision changes, No weakness Previous symptoms: same symptoms as today Allergies/Adverse Reactions: Sulfa (Sulfonamide Antibiotics) Allergy (Intermediate, Verified 01/03/20 14:25) Vomiting bee venom protein (honey bee) Allergy (Verified 01/03/20 14:25) methylprednisolone [From Solu-Medrol] Allergy (Verified 01/03/20 14:25) sumatriptan [From Imitrex] Allergy (Verified 01/03/20 14:25) ketorolac [From Toradol] Adverse Reaction (Verified 01/03/20 14:25) Nausea tramadol Adverse Reaction (Verified 01/03/20 14:25) Nausea Home Medications: Gabapentin 600 mg PO QID 06/14/19 [History] Acetaminophen with Codeine [Acetaminophen-Cod #3 Tablet] 1 each PO DAILY 11/22/19 [History] Buprenorphine 1 patch TOP WEEKLY 11/22/19 [History] Hx Tetanus, Diphtheria Vaccination/Date Given: Yes Hx Influenza Vaccination/Date Given: No Hx Pneumococcal Vaccination/Date Given: No Immunizations Up to Date: Yes Travel Risk - International Travel Have you traveled outside of the country in past 3 weeks: No - Coronavirus Screening Are you exhibiting any of the following symptoms?: Yes Symptoms: Headaches/Body Aches/Fatigue Close contact with a COVID-19 positive Pt in past 14-21 Days: No - Review of Systems Constitutional: No Symptoms, No Fever, No Chills Eyes: No Symptoms Ears, Nose, & Throat: No Symptoms Respiratory: No Symptoms, No Cough, No Dyspnea Cardiac: No Symptoms, No Chest Pain, No Edema, No Syncope Abdominal/Gastrointestinal: No Symptoms, No Abdominal Pain, No Nausea, No Vomiting, No Diarrhea Genitourinary Symptoms: No Symptoms, No Dysuria Musculoskeletal: No Symptoms, No Back Pain, No Neck Pain Skin: No Symptoms, No Rash Neurological: No Symptoms, No Dizziness, No Focal Weakness, No Sensory Changes Psychological: No Symptoms Endocrine: No Symptoms Hematologic/Lymphatic: No Symptoms Immunological/Allergic: No Symptoms All Other Systems: Reviewed and Negative - Past Medical History Pertinent Past Medical History: Yes Neurological History: Migraines ENT History: No Pertinent History Cardiac History: No Pertinent History Respiratory History: No Pertinent History Endocrine Medical History: No Pertinent History Musculoskeletal History: Arthritis GI Medical History: Gallbladder Disease History: Other Psycho-Social History: Bipolar Female Reproductive Disorders: Other - Past Surgical History Past Surgical History: Yes Neuro Surgical History: No Pertinent History Cardiac: No Pertinent History Respiratory: No Pertinent History Gastrointestinal: Cholecystectomy, Hernia Repair Genitourinary: Kidney Surgery Musculoskeletal: No Pertinent History Female Surgical History: Hysterectomy Other Surgical History: skin cancer removed twice, hernia removal - Social History Smoking Status: Current every day smoker How long have you smoked: years Exposure to second hand smoke: Yes Drug Use: none Patient Lives Alone: No - Female History Hx Last Menstrual Period: hysterectomy Hx Now: No - Nursing Vital Signs Nursing Vital Signs: Initial Vital Signs Temperature 98.4 F 01/13/20 15:10 Pulse Rate 82 08/27/20 15:10 Respiratory Rate 20 01/13/20 15:10 Blood Pressure 129/85 01/13/20 15:10 O2 Sat by Pulse Oximetry 100 01/13/20 15:10 Pain Scale Pain Intensity 10 - Physical Exam General Appearance: no apparent distress Eye Exam: PERRL/EOMI Ears, Nose, Throat Exam: normal ENT inspection, moist mucous membranes Neck Exam: normal inspection, supple, full range of motion, No meningismus Respiratory Exam: normal breath sounds, lungs clear Cardiovascular Exam: regular rate/rhythm, normal heart sounds Gastrointestinal/Abdominal Exam: soft, No tenderness, No distention Back Exam: normal inspection, normal range of motion Extremity Exam: normal inspection Mental Status Exam: alert, oriented x 3, 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 Exam: normal speech, PERRL, No facial droop Coordination/Gait Exam: normal cerebellar function Motor/Sensory Exam: no motor deficit, no sensory deficit, negative Babinski's sign, positive Babinski's sign, No no pronator drift, No pronator drift (R), No pronator drift (L), No sensory deficit, No weak motor strength RUE, No weak motor strength LUE, No weak motor strength RLE, No weak motor strength LLE Skin Exam: normal color, warm, dry, No rash Lymphatic Exam: adenopathy SpO2 Interpretation: normal SpO2: 100 O2 Delivery: Room Air - Course Nursing assessment & vital signs reviewed: Yes Ordered Tests: Medication Summary Discontinued Medications Generic Name Dose Route Start Last Admin Trade Name Freq PRN Reason Stop Dose Admin Diphenhydramine HCl 25 mg 01/13/20 15:22 01/13/20 15:26 Benadryl 50 Mg/Ml IM 01/13/20 15:23 25 mg STAT ONE Administration Diphenhydramine HCl Confirm 01/13/20 15:25 Benadryl 50 Mg/Ml Administered 01/13/20 15:26 Dose 50 mg .ROUTE .STK-MED ONE Morphine Sulfate 4 mg 01/13/20 15:20 01/13/20 15:27 Morphine Sulfate 4 Mg Inj IM 01/13/20 15:21 4 mg STAT ONE Administration Morphine Sulfate Confirm 01/13/20 15:25 Morphine Sulfate 4 Mg Inj Administered 01/13/20 15:26 Dose 4 mg .ROUTE .STK-MED ONE Ondansetron HCl 4 mg 01/13/20 15:21 01/13/20 15:27 Zofran Odt 4 Mg PO 01/13/20 15:22 4 mg STAT ONE Administration Ondansetron HCl Confirm 01/13/20 15:25 Zofran Odt 4 Mg Administered 01/13/20 15:26 Dose 4 mg .ROUTE .STK-MED ONE - Progress Progress: improved Air Movement: good Progress Note: 01/13/20 15:43 Patient reassessed. Headache much improved. Patient requesting discharge as she wants to go home and sleep. Patient requesting Fioricet. 2 tabs of Fioricet provided to patient for home. Will discharge at this time. Repeat neuro exam within normal limits. Patient feels well. Has no other complaints. Patient agrees to follow-up with her primary care doctor within 48 hours for reevaluation. Blood Culture(s) Obtained: No Antibiotics given: No Counseled pt/family regarding: diagnosis, need for follow-up - Departure Departure Disposition: Home Clinical Impression: Migraine, Medication refill Condition: Good Critical Care Time: No Referrals: GASTON CAMPUZANO [Primary Care Provider] - Additional Instructions: Discharge/Care Plan NATHAN MENDOZA was seen on 01/13/20 in the Emergency Room. The patient was counseled regarding Diagnosis,Lab results, Imaging studies, need for follow up and when to return to the Emergency Room. Prescriptions given: Discharge Note I have spoken with the patient and/or caregivers. I have explained the patient's condition, diagnosis and treatment plan based on the information available to me at this time. I have answered the patient's and/or caregiver's questions and addressed any concerns. The patient and/or caregivers have as good understanding of the patient's diagnosis, condition and treatment plan as can be expected at this point. The vital signs have been stable. The patient's condition is stable and appropriate for discharge from the emergency department. The patient will pursue further outpatient evaluation with the primary care physician or other designated or consulting physician as outlined in the discharge instructions. The patient and/or caregivers are agreeable to this plan of care and follow-up instructions have been explained in detail. The patient and/or caregivers have received these instruction. The patient/and or caregivers are aware that any significant change in condition or worsening of symptoms should prompt an immediate return to this or the closest emergency department or call 911.
[2020-01-13 15:58] VITALS: BP 107/75; PULSE 80; O2SAT 98
[2020-01-13] MEDS ORDERED: NON-FORMULARY ITEM PO ONE (16:00)
== END 2020-01-13 16:07 | disposition home or self-care (01) ==
LOC: ED 14:55
DX: G43.909 Migraine, unspecified, not intractable, without status migrainosus (principal); Z76.0 Encounter for issue of repeat prescription
CPT/HCPCS: 96372; 99284; J1200; J2270; Q0162

== ENCOUNTER 2020-01-27 09:58 | Emergency (ER) | payer OTHER ==
[2020-01-27] MEDS ORDERED: MORPHINE SULFATE 4 MG INJ IM ONE (10:16)
[2020-01-27] MEDS ORDERED: Phenergan 25 MG INJ IM ONE (10:16)
[2020-01-27] MEDS ORDERED: BENADRYL 50 MG/ML IM ONE (10:17)
[2020-01-27] MEDS ORDERED: Phenergan 25 MG INJ ONE (10:23)
[2020-01-27] MEDS ORDERED: BENADRYL 50 MG/ML ONE (10:23)
--- NOTE | 2020-01-27 10:23 | ERPHSYRPT ---
- History of Present Illness Time Seen by Provider: 01/27/20 10:10 Source: patient Exam Limitations: no limitations Patient Subjective Stated Complaint: Migraine for the past 2 days Triage Nursing Assessment: Pt was brought to the ER by her , states that it feels like a "chevy hammer" is behind her right eye, N&V, tachycardic, rates pain 02/25, hx of migraines, skin n/w/d, currently has a UTI per pt Physician History: Patient is a 44-year-old female who presents to our ED for treatment of a chronic recurrent migraine headache. Patient's headache today is typical of her usual migraine. Patient describes an ache behind her right thigh. She states it feels like a jackhammer behind her right eye. Positive nausea. Patient vomited once. Headache started 2 days ago. Patient states her headaches are usually successfully treated with Phenergan morphine and Benadryl IM. No head trauma. No blurred vision. No numbness tingling or weakness. No fever. No neck pain. No meningeal signs. Symptoms are moderate in intensity. Light/photophobia worsen symptomology. Patient voices no other complaints or concerns at this time. Patient advises that her headaches have been worked up extensively with CAT scans and MRIs. No new characteristics regarding this current headache. Timing/Duration: today Quality: aching Head Pain Location: frontal Severity of Pain-Max: moderate Severity of Pain-Current: moderate Recent Head Trauma: no recent headache/trauma, frequent headaches, chronic headaches Modifying Factors: Improves With: exposure to light, other (Patient states that loud noises smells and bright light cause and worsen her headache.) Associated Symptoms: nausea/vomiting, sensitive to light, No fever/chills, No light-headedness, No loss of consciousness, No nasal congestion, No nasal drainage, No neck pain, No sweating, No seizures, No sinus infection, No speech problems, No stiff neck, No trouble walking, No vision changes, No visual disturbance, No weakness Previous symptoms: same symptoms as today Allergies/Adverse Reactions: Sulfa (Sulfonamide Antibiotics) Allergy (Intermediate, Verified 01/27/20 10:09) Vomiting bee venom protein (honey bee) Allergy (Verified 01/27/20 10:09) methylprednisolone [From Solu-Medrol] Allergy (Verified 01/27/20 10:09) sumatriptan [From Imitrex] Allergy (Verified 01/27/20 10:09) ketorolac [From Toradol] Adverse Reaction (Verified 01/27/20 10:09) Nausea tramadol Adverse Reaction (Verified 01/27/20 10:09) Nausea Home Medications: Gabapentin 600 mg PO QID 06/14/19 [History] Buprenorphine 1 patch TOP WEEKLY 11/22/19 [History] Hx Tetanus, Diphtheria Vaccination/Date Given: Yes Hx Influenza Vaccination/Date Given: No Hx Pneumococcal Vaccination/Date Given: No Travel Risk - International Travel Have you traveled outside of the country in past 3 weeks: No - Coronavirus Screening Are you exhibiting any of the following symptoms?: No Close contact with a COVID-19 positive Pt in past 14-21 Days: No - Review of Systems Constitutional: No Symptoms, No Fever, No Chills Eyes: No Symptoms Ears, Nose, & Throat: No Symptoms Respiratory: No Symptoms, No Cough, No Dyspnea Cardiac: No Symptoms, No Chest Pain, No Edema, No Syncope Abdominal/Gastrointestinal: No Symptoms, No Abdominal Pain, No Nausea, No Vomiting, No Diarrhea Genitourinary Symptoms: No Symptoms, No Dysuria Musculoskeletal: No Symptoms, No Back Pain, No Neck Pain Skin: No Symptoms, No Rash Neurological: No Symptoms, No Dizziness, No Focal Weakness, No Sensory Changes Psychological: No Symptoms Endocrine: No Symptoms Hematologic/Lymphatic: No Symptoms Immunological/Allergic: No Symptoms All Other Systems: Reviewed and Negative - Past Medical History Pertinent Past Medical History: Yes Neurological History: Migraines ENT History: No Pertinent History Cardiac History: No Pertinent History Respiratory History: No Pertinent History Endocrine Medical History: No Pertinent History Musculoskeletal History: Arthritis GI Medical History: Gallbladder Disease History: Other Psycho-Social History: Bipolar Female Reproductive Disorders: Other - Past Surgical History Past Surgical History: Yes Neuro Surgical History: No Pertinent History Cardiac: No Pertinent History Respiratory: No Pertinent History Gastrointestinal: Cholecystectomy, Hernia Repair Genitourinary: Kidney Surgery Musculoskeletal: No Pertinent History Female Surgical History: Hysterectomy Other Surgical History: skin cancer removed twice, hernia removal - Social History Smoking Status: Current every day smoker How long have you smoked: years Exposure to second hand smoke: Yes Drug Use: none Patient Lives Alone: No - Female History Hx Now: No - Nursing Vital Signs Nursing Vital Signs: Initial Vital Signs Temperature 97.8 F 01/27/20 10:02 Pulse Rate 111 H 01/27/20 10:02 Blood Pressure 124/102 01/27/20 10:02 O2 Sat by Pulse Oximetry 98 01/27/20 10:02 Pain Scale Pain Intensity 10 - Physical Exam General Appearance: no apparent distress Eye Exam: PERRL/EOMI Ears, Nose, Throat Exam: normal ENT inspection, moist mucous membranes Neck Exam: normal inspection, supple, full range of motion, No meningismus Respiratory Exam: normal breath sounds, lungs clear Cardiovascular Exam: regular rate/rhythm, normal heart sounds Gastrointestinal/Abdominal Exam: soft, No tenderness, No distention Back Exam: normal inspection, normal range of motion Extremity Exam: normal inspection Mental Status Exam: alert, oriented x 3, cooperative, No agitated, No uncooperative first responder Exam: normal hearing, normal speech, PERRL, tongue midline, No abnormal eye position, No abnormal pupil position, No facial droop, No facial weakness, No hearing deficit (R), No hearing deficit (L) Coordination/Gait Exam: normal finger to nose, normal gait, normal cerebellar function Motor/Sensory Exam: no motor deficit, no sensory deficit, No sensory deficit, No weak motor strength RUE, No weak motor strength LUE, No weak motor strength RLE, No weak motor strength LLE Skin Exam: normal color, warm, dry, No rash SpO2 Interpretation: normal SpO2: 98 O2 Delivery: Room Air - Course Nursing assessment & vital signs reviewed: Yes Ordered Tests: Medication Summary Discontinued Medications Generic Name Dose Route Start Last Admin Trade Name Freq PRN Reason Stop Dose Admin Diphenhydramine HCl 25 mg 01/27/20 10:17 01/27/20 10:26 Benadryl 50 Mg/Ml IM 01/27/20 10:18 25 mg STAT ONE Administration Diphenhydramine HCl Confirm 01/27/20 10:23 Benadryl 50 Mg/Ml Administered 01/27/20 10:24 Dose 50 mg .ROUTE .STK-MED ONE Morphine Sulfate 4 mg 01/27/20 10:16 01/27/20 10:25 Morphine Sulfate 4 Mg Inj IM 01/27/20 10:17 4 mg STAT ONE Administration Morphine Sulfate Confirm 01/27/20 10:24 Morphine Sulfate 4 Mg Inj Administered 01/27/20 10:25 Dose 4 mg .ROUTE .STK-MED ONE Promethazine HCl 25 mg 01/27/20 10:16 01/27/20 10:27 Phenergan 25 Mg Inj IM 01/27/20 10:17 25 mg STAT ONE Administration Promethazine HCl Confirm 01/27/20 10:23 Phenergan 25 Mg Inj Administered 01/27/20 10:24 Dose 25 mg .ROUTE .STK-MED ONE - Progress Progress: improved Air Movement: good Progress Note: 01/27/20 10:36 Patient reassessed. Headache resolved. Repeat neuro exam within normal limits. Patient requesting discharge. Patient's will drive her home as she just received morphine. Patient has an appointment with Dr. Guzmán of neurology to control her chronic recurrent headaches. Patient voices no other complaints concerns at this time. Will discharge patient home per her request. Patient advised that she is a smoker. She is currently using nicotine patch. Patient is in the process of quitting smoking. 01/27/20 10:37 Blood Culture(s) Obtained: No Antibiotics given: No Counseled pt/family regarding: diagnosis, need for follow-up, smoking cessation - Departure Departure Disposition: Home Clinical Impression: Migraine Condition: Stable Critical Care Time: No Referrals: GASTON CAMPUZANO [Primary Care Provider] - Additional Instructions: Discharge/Care Plan NATHAN MENDOZA was seen on 01/27/20 in the Emergency Room. The patient was counseled regarding Diagnosis,Lab results, Imaging studies, need for follow up and when to return to the Emergency Room. Prescriptions given: Discharge Note I have spoken with the patient and/or caregivers. I have explained the patient's condition, diagnosis and treatment plan based on the information available to me at this time. I have answered the patient's and/or caregiver's questions and addressed any concerns. The patient and/or caregivers have as good understanding of the patient's diagnosis, condition and treatment plan as can be expected at this point. The vital signs have been stable. The patient's condition is stable and appropriate for discharge from the emergency department. The patient will pursue further outpatient evaluation with the primary care physician or other designated or consulting physician as outlined in the discharge instructions. The patient and/or caregivers are agreeable to this plan of care and follow-up instructions have been explained in detail. The patient and/or caregivers have received these instruction. The patient/and or caregivers are aware that any significant change in condition or worsening of symptoms should prompt an immediate return to this or the closest emergency department or call 911.
[2020-01-27] MEDS ORDERED: MORPHINE SULFATE 4 MG INJ ONE (10:24)
[2020-01-27 10:50] VITALS: BP 120/91; PULSE 85; O2SAT 96
== END 2020-01-27 10:57 | disposition home or self-care (01) ==
LOC: ED 09:58
DX: G43.909 Migraine, unspecified, not intractable, without status migrainosus (principal)
CPT/HCPCS: 96372; 99284; J1200; J2270; J2550

== ENCOUNTER 2020-02-10 16:26 | Emergency (ER) | payer OTHER ==
[2020-02-10] MEDS ORDERED: Sodium Chloride 0.9% 1000 ML 1,000 ML IV STA (16:56)
[2020-02-10] MEDS ORDERED: Inapsine 5 MG/2 ML IV ONE (16:58)
[2020-02-10] MEDS ORDERED: Inapsine 5 MG/2 ML ONE (17:16)
[2020-02-10] MEDS ORDERED: Sodium Chloride 0.9% 1000 ML 1,000 ML ONE (17:16)
[2020-02-10 17:20] LABS: Appearance SLIGHTLY CLOUDY (CLEAR); Bilirubin NEGATIVE (NEGATIVE); Blood LARGE Ery/ul (0-5); Epithelial Cells RARE /HPF (FEW); Glucose NEGATIVE (NEGATIVE); Ketones NEGATIVE (NEGATIVE); Leukocyte Esterase SMALL (NEGATIVE); Mucus SLIGHT /HPF (NEGATIVE); Nitrite NEGATIVE (NEGATIVE); Protein,Urine Dip 30 (Negative); Specific Gravity 1.009 (1.005-1.025); Urobilinogen NEGATIVE mg/dL (0-1); WBC 26-50 /HPF (0-5)
[2020-02-10 17:21] LABS: RBC >101 /HPF (0-2)
[2020-02-10 17:40] VITALS: O2SAT 97
[2020-02-10 17:40] LABS: Absolute Neutrophil Ct (ANC) 9.98 (1.4-6.9); BASOPHIL % 0.1 % (0.0-0.4); Basophil (Absolute #) 0.01 (0-0.4); Eosinophil (Absolute #) 0.39 (0-0.5); Hematocrit 44.1 % (35-47); Hemoglobin 14.5 gm/dl (12.0-16.0); Lymphocyte (Absolute #) 1.72 (1.0-4.6); Lymphocytes % 13.4 % (24.0-44.0); Mean Cell Volume 94.2 fl (78-100); Mean Corpuscular Hgb Concent. 32.9 g/dl (32-36); Mean Platelet Volume 9.5 fl (7.5-11.0); Monocyte (Absolute #) 0.74 (0.0-1.3); Monocytes % 5.8 % (0.0-12.0); Neutrophil % 77.7 % (36.0-66.0); Platelet Count 368 K/mm3 (150-450); Red Blood Count 4.68 M/mm3 (4.1-5.4); White Blood Count 12.8 K/mm3 (4.0-10.5)
--- NOTE | 2020-02-10 17:46 | ERPHSYRPT ---
- History of Present Illness Time Seen by Provider: 02/10/20 17:40 Historian: patient Exam Limitations: no limitations Patient Subjective Stated Complaint: pt here for pain to left side of abd for about a week, worse last couple days where her colosotomy is , she is afraid her colostomy is not working good Triage Nursing Assessment: pt alert, resp easy, face mask in place,.colosotmy bag jin place with scant amt of stool Physician History: Patient is a 44-year-old female presents to our ED with complaints of left lower abdominal pain mild nausea. Pain started approximately 2 days ago. Patient states that she has not had a bowel movement in 2 days. Patient has a left lower quadrant colostomy bag. Output has been minimal in the past 2 days. Patient's left lower quadrant pain described as an ache that is localized. No radiation. Patient has a history of ureterolithiasis. Patient states her symptoms are the same. No trauma. No fever. No nausea or vomiting. No diarrhea. Symptoms are mild to moderate in intensity. No specific worsening or improving factors. Patient voices no other complaints or concerns at this time. Timing/Duration: day(s) (2 Days.) Activities at Onset: none Quality: aching Abdominal Pain Onset Location: LLQ Pain Radiation: no radiation Severity of Pain-Max: moderate Severity of Pain-Current: moderate Modifying Factors: Improves With: nothing Associated Symptoms: No chest pain, No diaphoresis, No diarrhea, No fever/chills, No fatigue, No headache, No heartburn, No loss of appetite, No nausea, No neck pain, No rash, No shortness of breath, No syncope, No testicular pain, No vomiting Previous symptoms: same symptoms as today Allergies/Adverse Reactions: Sulfa (Sulfonamide Antibiotics) Allergy (Intermediate, Verified 01/27/20 10:09) Vomiting bee venom protein (honey bee) Allergy (Verified 01/27/20 10:09) methylprednisolone [From Solu-Medrol] Allergy (Verified 01/27/20 10:09) sumatriptan [From Imitrex] Allergy (Verified 01/27/20 10:09) ketorolac [From Toradol] Adverse Reaction (Verified 01/27/20 10:09) Nausea nitrofurantoin [From Macrobid] Adverse Reaction (Verified 02/10/20 17:54) tramadol Adverse Reaction (Verified 01/27/20 10:09) Nausea Home Medications: Gabapentin 600 mg PO QID 06/14/19 [History] Buprenorphine 1 patch TOP WEEKLY 11/22/19 [History] Hx Tetanus, Diphtheria Vaccination/Date Given: Yes Hx Influenza Vaccination/Date Given: No Hx Pneumococcal Vaccination/Date Given: No Immunizations Up to Date: Yes Travel Risk - International Travel Have you traveled outside of the country in past 3 weeks: No - Coronavirus Screening Are you exhibiting any of the following symptoms?: No Close contact with a COVID-19 positive Pt in past 14-21 Days: No - Review of Systems Constitutional: No Symptoms, No Fever, No Chills Eyes: No Symptoms Ears, Nose, & Throat: No Symptoms Respiratory: No Symptoms, No Cough, No Dyspnea Cardiac: No Symptoms, No Chest Pain, No Edema, No Syncope Abdominal/Gastrointestinal: No Symptoms, No Abdominal Pain, No Nausea, No Vomiting, No Diarrhea Genitourinary Symptoms: No Symptoms, No Dysuria Musculoskeletal: No Symptoms, No Back Pain, No Neck Pain Skin: No Symptoms, No Rash Neurological: No Symptoms, No Dizziness, No Focal Weakness, No Sensory Changes Psychological: No Symptoms Endocrine: No Symptoms Hematologic/Lymphatic: No Symptoms Immunological/Allergic: No Symptoms All Other Systems: Reviewed and Negative - Past Medical History Pertinent Past Medical History: Yes Neurological History: Migraines ENT History: No Pertinent History Cardiac History: No Pertinent History Respiratory History: No Pertinent History Endocrine Medical History: No Pertinent History Musculoskeletal History: Arthritis GI Medical History: Gallbladder Disease History: Other Psycho-Social History: Bipolar Female Reproductive Disorders: Other - Past Surgical History Past Surgical History: Yes Neuro Surgical History: No Pertinent History Cardiac: No Pertinent History Respiratory: No Pertinent History Gastrointestinal: Cholecystectomy, Hernia Repair Genitourinary: Kidney Surgery Musculoskeletal: No Pertinent History Female Surgical History: Hysterectomy Other Surgical History: skin cancer removed twice, hernia removal - Social History Smoking Status: Current every day smoker How long have you smoked: years Exposure to second hand smoke: Yes Drug Use: none Patient Lives Alone: No - Female History Hx Last Menstrual Period: hyster Hx Now: No - Nursing Vital Signs Nursing Vital Signs: Initial Vital Signs Pulse Rate 92 H 02/10/20 17:38 Respiratory Rate 20 02/10/20 17:38 Blood Pressure 121/83 02/10/20 17:38 O2 Sat by Pulse Oximetry 97 02/10/20 17:38 Pain Scale Pain Intensity 7 - Physical Exam General Appearance: no apparent distress, alert Eye Exam: PERRL/EOMI, eyes nml inspection Ears, Nose, Throat Exam: normal ENT inspection, pharynx normal, moist mucous membranes Neck Exam: normal inspection, non-tender, supple, full range of motion Respiratory Exam: normal breath sounds, lungs clear, No respiratory distress Cardiovascular Exam: regular rate/rhythm, normal heart sounds Gastrointestinal/Abdomen Exam: soft, other (Colostomy. No rebound. No distention.), No tenderness, No mass Back Exam: normal inspection, normal range of motion, No CVA tenderness, No vertebral tenderness Extremity Exam: normal inspection, normal range of motion, pelvis stable Neurologic Exam: alert, oriented x 3, cooperative, normal mood/affect, nml cerebellar function, sensation nml, No motor deficits Skin Exam: normal color, warm, dry Lymphatic Exam: No adenopathy SpO2 Interpretation: normal SpO2: 97 O2 Delivery: Room Air - Course Nursing assessment & vital signs reviewed: Yes - CT Exams Abdomen/Pelvis CT Interpretation: Tele-radiologist Report (Mild diffuse fecal stasis however less than before. Stable nonobstructing left renal micro calculi. 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 No new acute findings.) Ordered Tests: Active Orders 24 hr Category Date Time Status IV Insertion STAT Care 02/10/20 16:56 Active ABDOMEN AND PELVIS W/0 CONTRAS [CT] Stat Exams 02/10/20 16:57 Taken CBC W DIFF Stat Lab 02/10/20 17:30 Completed CMP Stat Lab 02/10/20 17:30 Completed CULTURE,URINE Stat Lab 02/10/20 16:35 Received LIPASE Stat Lab 02/10/20 17:30 Completed UA W/RFX UR CULTURE Stat Lab 02/10/20 16:35 Completed Medication Summary Discontinued Medications Generic Name Dose Route Start Last Admin Trade Name Freq PRN Reason Stop Dose Admin Droperidol 5 mg 02/10/20 16:58 02/10/20 17:16 Inapsine 5 Mg/2 Ml IV 02/10/20 16:59 5 mg STAT ONE Administration Droperidol Confirm 02/10/20 17:16 Inapsine 5 Mg/2 Ml Administered 02/10/20 17:17 Dose 5 mg .ROUTE .STK-MED ONE Sodium Chloride 1,000 mls @ 999 mls/hr 02/10/20 16:56 02/10/20 17:17 Sodium Chloride 0.9% 1000 Ml IV 02/10/20 17:56 999 mls/hr .Q1H1M STA Administration Sodium Chloride Confirm 02/10/20 17:16 Sodium Chloride 0.9% 1000 Ml Administered 02/10/20 17:17 Dose 1,000 mls @ ud .ROUTE .STK-MED ONE Nitrofurantoin Macrocrystals 100 mg 02/10/20 17:48 02/10/20 17:52 Macrobid 100mg Capsule PO 02/10/20 17:49 100 mg STAT ONE Administration Nitrofurantoin Macrocrystals Confirm 02/10/20 17:51 Macrobid 100mg Capsule Administered 02/10/20 17:52 Dose 100 mg .ROUTE .STK-MED ONE Ondansetron HCl Confirm 02/10/20 17:55 Zofran 4 Mg/2 Ml Vial Administered 02/10/20 17:56 Dose 4 mg .ROUTE .STK-MED ONE Lab/Rad Data: Laboratory Result Diagrams 02/10/20 17:30 02/10/20 17:30 Laboratory Results 02/10/20 02/10/20 02/10/20 Range/Units 17:30 17:30 16:35 WBC 12.8 H (4.0-10.5) K/mm3 RBC 4.68 (4.1-5.4) M/mm3 Hgb 14.5 (12.0-16.0) gm/dl Hct 44.1 (35-47) % MCV 94.2 (78-100) fl MCH 31.0 (26-32) pg MCHC 32.9 (32-36) g/dl RDW 14.0 (11.5-14.0) % Plt Count 368 (150-450) K/mm3 MPV 9.5 (7.5-11.0) fl Gran % 77.7 H (36.0-66.0) % Eos # (Auto) 0.39 (0-0.5) Absolute Lymphs (auto) 1.72 (1.0-4.6) Absolute Monos (auto) 0.74 (0.0-1.3) Lymphocytes % 13.4 L (24.0-44.0) % Monocytes % 5.8 (0.0-12.0) % Eosinophils % 3.0 (0.00-5.0) % Basophils % 0.1 (0.0-0.4) % Absolute Granulocytes 9.98 H (1.4-6.9) Basophils # 0.01 (0-0.4) Sodium 140 (137-145) mmol/L Potassium 3.2 L (3.5-5.1) mmol/L Chloride 111 H (98-107) mmol/L Carbon Dioxide 20 L (22-30) mmol/L Anion Gap 11.6 (5-15) MEQ/L BUN 10 (7-17) mg/dL Creatinine 0.64 (0.52-1.04) mg/dL Estimated GFR > 60.0 ML/MIN Glucose 143 H (74-106) mg/dL Calcium 9.2 (8.4-10.2) mg/dL Total Bilirubin 0.40 (0.2-1.3) mg/dL AST 27 (14-36) U/L ALT 25 (0-35) U/L Alkaline Phosphatase 107 (38-126) U/L Serum Total Protein 7.2 (6.3-8.2) g/dL Albumin 3.9 (3.5-5.0) g/dL Lipase 23 (23-300) U/L Urine Color YELLOW (YELLOW) Urine Appearance SLIGHTLY CLOUDY (CLEAR) Urine pH 6.0 (5-6) Ur Specific [place] 1.009 (1.005-1.025) Urine Protein 30 (Negative) Urine Ketones NEGATIVE (NEGATIVE) Urine Blood LARGE (0-5) Ed/ul Urine Nitrite NEGATIVE (NEGATIVE) Urine Bilirubin NEGATIVE (NEGATIVE) Urine Urobilinogen NEGATIVE (0-1) mg/dL Ur Leukocyte Esterase SMALL (NEGATIVE) Urine WBC (Auto) 26-50 (0-5) /HPF Urine RBC (Auto) >101 (0-2) /HPF U Epithel Cells (Auto) RARE (FEW) /HPF Urine Bacteria (Auto) NONE (NEGATIVE) /HPF Urine Mucus (Auto) SLIGHT (NEGATIVE) /HPF Urine Culture Reflexed YES (NO) Urine Glucose NEGATIVE (NEGATIVE) mg/dL - Progress Progress: improved Progress Note: 02/10/20 17:45 Patient reassessed. Nausea and abdominal pain significantly improved. CT negative for acute pathology. No ureterolithiasis observed. No obstruction. There is mild fecal stasis. A significant for UTI. Will treat with Macrobid. No indication for further work-up. Macrobid administered in our ED. A prescription for the same was forwarded the patient's pharmacy. Plan of care discussed with patient. She agrees to follow-up with her primary care doctor within 48 hours for reevaluation. 02/10/20 17:46 02/10/20 17:47 Counseled pt/family regarding: lab results, diagnosis, need for follow-up, rad results - Departure Departure Disposition: Home Clinical Impression: UTI (urinary tract infection), Constipation, Hypokalemia Condition: Stable Critical Care Time: No Referrals: GASTON CAMPUZANO [Primary Care Provider] - Additional Instructions: Discharge/Care Plan NATHAN MENDOZA was seen on 02/10/20 in the Emergency Room. The patient was counseled regarding Diagnosis,Lab results, Imaging studies, need for follow up and when to return to the Emergency Room. Prescriptions given: Discharge Note I have spoken with the patient and/or caregivers. I have explained the patient's condition, diagnosis and treatment plan based on the information available to me at this time. I have answered the patient's and/or caregiver's questions and addressed any concerns. The patient and/or caregivers have as good understanding of the patient's diagnosis, condition and treatment plan as can be expected at this point. The vital signs have been stable. The patient's condition is stable and appropriate for discharge from the emergency department. The patient will pursue further outpatient evaluation with the primary care physician or other designated or consulting physician as outlined in the discharge instructions. The patient and/or caregivers are agreeable to this plan of care and follow-up instructions have been explained in detail. The patient and/or caregivers have received these instruction. The patient/and or caregivers are aware that any significant change in condition or worsening of symptoms should prompt an immediate return to this or the closest emergency department or call 911. Prescriptions: Nitrofurantoin Macro 100 mg [Macrobid 100MG Capsule] 100 mg PO BID 7 Days #14 capsule
[2020-02-10] MEDS ORDERED: Macrobid 100MG Capsule PO ONE (17:48)
[2020-02-10] MEDS ORDERED: Macrobid 100MG Capsule ONE (17:51)
[2020-02-10] MEDS ORDERED: Zofran 4 MG/2 ML VIAL ONE (17:55)
[2020-02-10 18:01] LABS: ALBUMIN 3.9 g/dL (3.5-5.0); ALKALINE PHOSPHATASE 107 U/L (38-126); ANION GAP 11.6 MEQ/L (5-15); BLOOD UREA NITROGEN 10 mg/dL (7-17); CHLORIDE 111 mmol/L (98-107); Calcium 9.2 mg/dL (8.4-10.2); Carbon Dioxide 20 mmol/L (22-30); Creatinine 1 0.64 mg/dL (0.52-1.04); EST GLOMERULAR FILTRATION RATE > 60.0 ML/MIN; Glucose 143 mg/dL (74-106); LIPASE 23 U/L (23-300); Potassium 3.2 mmol/L (3.5-5.1); SGOT/AST 27 U/L (14-36); SGPT/ALT 25 U/L (0-35); SODIUM 140 mmol/L (137-145); Total Protein 7.2 g/dL (6.3-8.2)
[2020-02-10] MEDS ORDERED: Klor Con 10 MEQ PO ONE ×2 (18:12→18:13)
[2020-02-10 18:14] VITALS: BP 109/84; PULSE 71
--- NOTE | 2020-02-10 20:50 | XRAY ---
Exam: CT of the abdomen and pelvis without IV contrast from 02/10/2020. CTDI: 5.77 mGy Comparison: CT of the abdomen and pelvis without IV contrast from 12/10/2019. Indication: Ureterolithiasis. History of prior cholecystectomy, hysterectomy, hernia repair, and colostomy; history of congenitally absent right kidney, left side abdomen pain. Technique: Non-IV contrast axial images were obtained through the abdomen and pelvis. Reconstructed coronal and sagittal images were created and reviewed. Findings: The lung bases are clear except for a small calcified granuloma at the posterior medial left lung base. There is also a calcification just to the left of the thoracic esophagus on axial image #12. The heart size is normal. Assessment of the solid organs is limited without the use of IV contrast. The liver reveals a prominent Lizy's lobe involving the right hepatic lobe. This is unchanged. No definite liver mass or intrahepatic biliary duct distention. Surgical clips consistent with prior cholecystectomy are noted. The spleen is of normal size and reveals multiple calcified splenic granulomas. No focal splenic mass is seen. The pancreas and adrenal glands appear unremarkable. The right kidney knee is congenitally absent. There is compensatory hypertrophy of the left kidney which measures 15.2 cm in length. A couple small nonobstructing punctate stones are seen within the lower pole of the left kidney representing no change. No definite renal mass or hydronephrosis is seen. I see no definite calcification within the projection of the left ureter. Atherosclerotic vascular calcification is seen within the abdominal aorta and proximal iliac arteries. I again note an IVC duplication. There is no free air. A left lower quadrant colostomy is again seen. Scattered stool is seen throughout the colon. There appears to be a lesser amount of stool within the colon proximal to the colostomy on today's study. There is no bowel obstruction. The appendix appears unremarkable within the right lower quadrant on the coronal images. The uterus is surgically absent. No pelvic mass, enlarged pelvic lymph nodes, or free intraperitoneal fluid is seen. A couple calcified granulomas are seen within the lower right pelvis. The urinary bladder is only mildly distended, but reveals no definite abnormality. Some small postinflammatory lymph nodes are seen within each groin. The skeleton reveals minimal convexity of the lower lumbar spine toward the left centered at L3-L4. I see moderate degenerative disc disease at L5-S1. There is also moderate bilateral L5-S1 facet joint arthropathy. Impression: 1. There is compensatory hypertrophy of the left kidney with a couple stable punctate nonobstructing stones overlying the lower pole of the left kidney. The right kidney is congenitally absent. No left-sided hydronephrosis or definite left ureteral calculus is seen. No urinary bladder stone is seen. 2. There is mild colonic fecal stasis proximal to the colostomy within the left lower quadrant. This is not as pronounced as that seen on 12/10/2019. No bowel obstruction or evidence of appendicitis is seen. 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 4. Status post cholecystectomy and hysterectomy. 5. No acute process is seen within the abdomen or pelvis.
== END 2020-02-10 18:35 | disposition home or self-care (01) ==
LOC: ED 16:26
DX: N39.0 Urinary tract infection, site not specified (principal); K59.00 Constipation, unspecified; E87.6 Hypokalemia
CPT/HCPCS: 36000; 36415; 74176; 80053; 81001; 83690; 85025; 87077; 87086; 87186; 96360; 96374; 99284; J2405; A9270-GY

== ENCOUNTER 2020-02-29 10:06 | Emergency (ER) | payer OTHER ==
--- NOTE | 2020-02-29 10:44 | ERPHSYRPT ---
- History of Present Illness Time Seen by Provider: 02/29/20 10:10 Historian: patient Exam Limitations: no limitations Patient Subjective Stated Complaint: pt states that she has had a UTI for some time and has taken all of her antibiotics and nothing has helped, left flank pain that radiates to her LLQ, pt finished her antibiotics on Friday Triage Nursing Assessment: Pt brought to the ER by her , rates left flank pain and LLQ pain as 10/10, hematuria, vitals wnl, pain with palpatation to the abdomen, pt thinks she has a stone Physician History: Patient is a 44-year-old female presents to our ED with complaints of dysuria. Patient completed a course of antibiotics on Friday however symptoms are persistent. Patient describes pain in her left flank radiating to her left groin area. Patient is now concerned for the possibility of a kidney stone. No obvious hematuria. No trauma. No fevers. No nausea or vomiting. No diarrhea. Symptoms are mild to moderate in intensity. No specific worsening or improving factors. Patient voices no other complaints or concerns at this time. Timing/Duration: week(s) (1 week) Quality: aching Abdominal Pain Onset Location: flank Pain Radiation: groin Severity of Pain-Max: moderate Severity of Pain-Current: mild Modifying Factors: Improves With: nothing Associated Symptoms: No back, No chest pain, No diaphoresis, No diarrhea, No fever/chills, No fatigue, No headache, No heartburn, No loss of appetite, No nausea, No neck pain, No rash, No shortness of breath, No syncope, No testicular pain, No vomiting, No weakness Allergies/Adverse Reactions: Sulfa (Sulfonamide Antibiotics) Allergy (Intermediate, Verified 02/29/20 10:24) Vomiting bee venom protein (honey bee) Allergy (Verified 02/29/20 10:24) methylprednisolone [From Solu-Medrol] Allergy (Verified 02/29/20 10:24) sumatriptan [From Imitrex] Allergy (Verified 02/29/20 10:24) ketorolac [From Toradol] Adverse Reaction (Verified 02/29/20 10:24) Nausea nitrofurantoin [From Macrobid] Adverse Reaction (Verified 02/29/20 10:24) tramadol Adverse Reaction (Verified 02/29/20 10:24) Nausea Home Medications: Gabapentin 600 mg PO QID 06/14/19 [History] Hx Tetanus, Diphtheria Vaccination/Date Given: Yes Hx Influenza Vaccination/Date Given: No Hx Pneumococcal Vaccination/Date Given: No Travel Risk - International Travel Have you traveled outside of the country in past 3 weeks: No - Coronavirus Screening Are you exhibiting any of the following symptoms?: No Close contact with a COVID-19 positive Pt in past 14-21 Days: No - Review of Systems Constitutional: No Symptoms, No Fever, No Chills Eyes: No Symptoms Ears, Nose, & Throat: No Symptoms Respiratory: No Symptoms, No Cough, No Dyspnea Cardiac: No Symptoms, No Chest Pain, No Edema, No Syncope Abdominal/Gastrointestinal: No Symptoms, No Abdominal Pain, No Nausea, No Vomiting, No Diarrhea Genitourinary Symptoms: No Symptoms, No Dysuria Musculoskeletal: No Symptoms, No Back Pain, No Neck Pain Skin: No Symptoms, No Rash Neurological: No Symptoms, No Dizziness, No Focal Weakness, No Sensory Changes Psychological: No Symptoms Endocrine: No Symptoms Hematologic/Lymphatic: No Symptoms Immunological/Allergic: No Symptoms All Other Systems: Reviewed and Negative - Past Medical History Pertinent Past Medical History: Yes Neurological History: Migraines ENT History: No Pertinent History Cardiac History: No Pertinent History Respiratory History: No Pertinent History Endocrine Medical History: No Pertinent History Musculoskeletal History: Arthritis GI Medical History: Gallbladder Disease History: Other Psycho-Social History: Bipolar Female Reproductive Disorders: Other - Past Surgical History Past Surgical History: Yes Neuro Surgical History: No Pertinent History Cardiac: No Pertinent History Respiratory: No Pertinent History Gastrointestinal: Cholecystectomy, Hernia Repair Genitourinary: Kidney Surgery Musculoskeletal: No Pertinent History Female Surgical History: Hysterectomy Other Surgical History: skin cancer removed twice, hernia removal - Social History Smoking Status: Current every day smoker How long have you smoked: years Exposure to second hand smoke: Yes Drug Use: none Patient Lives Alone: No - Female History Hx Now: No - Nursing Vital Signs Nursing Vital Signs: Initial Vital Signs Temperature 97.7 F 02/29/20 10:08 Pulse Rate 91 H 02/29/20 10:08 Blood Pressure 118/90 02/29/20 10:08 O2 Sat by Pulse Oximetry 100 02/29/20 10:08 Pain Scale Pain Intensity 10 - Physical Exam General Appearance: no apparent distress, alert Eye Exam: PERRL/EOMI, eyes nml inspection Ears, Nose, Throat Exam: normal ENT inspection, pharynx normal, moist mucous membranes Neck Exam: normal inspection, non-tender, supple, full range of motion Respiratory Exam: normal breath sounds, lungs clear, No respiratory distress Cardiovascular Exam: regular rate/rhythm, normal heart sounds Gastrointestinal/Abdomen Exam: soft, other (mild left CVA TTP. Overlying ST intact. ), No tenderness, No mass Back Exam: normal inspection, normal range of motion, No CVA tenderness, No vertebral tenderness Extremity Exam: normal inspection, normal range of motion, pelvis stable Neurologic Exam: alert, oriented x 3, cooperative, normal mood/affect, nml cerebellar function, sensation nml, No motor deficits Skin Exam: normal color, warm, dry SpO2 Interpretation: normal SpO2: 100 O2 Delivery: Room Air - Course Nursing assessment & vital signs reviewed: Yes - CT Exams Abdomen/Pelvis CT Interpretation: Tele-radiologist Report (Stable nonobstructing left renal micro calculi and congenitally absent right kidney, stable left lower quadrant colostomy without complications, 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, otherwise negative CT) Ordered Tests: Active Orders 24 hr Category Date Time Status ABDOMEN AND PELVIS W/0 CONTRAS [CT] Stat Exams 02/29/20 10:30 Completed CULTURE,URINE Stat Lab 02/29/20 10:15 Received UA W/RFX UR CULTURE Stat Lab 02/29/20 10:15 Completed Medication Summary Discontinued Medications Generic Name Dose Route Start Last Admin Trade Name Freq PRN Reason Stop Dose Admin Acetaminophen 975 mg 02/29/20 10:50 02/29/20 11:10 Tylenol 325 Mg PO 02/29/20 10:51 Not Given STAT STA Acetaminophen Confirm 02/29/20 11:02 Tylenol 325 Mg Administered 02/29/20 11:03 Dose 975 mg .ROUTE .STK-MED ONE Acetaminophen Confirm 02/29/20 11:08 Tylenol 325 Mg Administered 02/29/20 11:09 Dose 975 mg .ROUTE .STK-MED ONE Hydrocodone Bitart/Acetaminophen 1 tab 02/29/20 11:48 02/29/20 12:14 [place] 5/325 Mg PO 02/29/20 11:49 1 tab STAT ONE Administration Hydrocodone Bitart/Acetaminophen Confirm 02/29/20 12:13 [place] 5/325 Mg Administered 02/29/20 12:14 Dose 1 tab .ROUTE .STK-MED ONE Ondansetron HCl 4 mg 02/29/20 11:48 02/29/20 12:14 Zofran Odt 4 Mg PO 02/29/20 11:49 4 mg STAT ONE Administration Ondansetron HCl Confirm 02/29/20 12:12 Zofran Odt 4 Mg Administered 02/29/20 12:13 Dose 4 mg .ROUTE .STK-MED ONE Lab/Rad Data: Laboratory Results 02/29/20 Range/Units 10:15 Urine Color YELLOW (YELLOW) Urine Appearance CLOUDY (CLEAR) Urine pH 6.0 (5-6) Ur Specific [place] 1.019 (1.005-1.025) Urine Protein 100 (Negative) Urine Ketones NEGATIVE (NEGATIVE) Urine Blood LARGE (0-5) Ed/ul Urine Nitrite NEGATIVE (NEGATIVE) Urine Bilirubin NEGATIVE (NEGATIVE) Urine Urobilinogen NEGATIVE (0-1) mg/dL Ur Leukocyte Esterase TRACE (NEGATIVE) Urine WBC (Auto) 51-100 (0-5) /HPF Urine RBC (Auto) >101 (0-2) /HPF U Epithel Cells (Auto) FEW (FEW) /HPF Urine Bacteria (Auto) FEW (NEGATIVE) /HPF Urine Culture Reflexed YES (NO) Urine Glucose NEGATIVE (NEGATIVE) mg/dL - Progress Progress Note: Patient absconded prior to receiving CT scan report and urinalysis results. CT negative for acute pathology. UA showspyuria possible UTI. 02/29/20 12:54 - Departure Departure Disposition: AMA Clinical Impression: Flank pain, Dysuria, UTI (urinary tract infection), Nephrolithiasis, Granulomatous disease Condition: Stable Critical Care Time: No Referrals: GASTON CAMPUZANO [Primary Care Provider] - Instructions: Urinary Tract Infection, Adult (DC)
[2020-02-29] MEDS ORDERED: TYLENOL 325 MG PO STA (10:50)
[2020-02-29] MEDS ORDERED: TYLENOL 325 MG ONE ×2 (11:02→11:08)
[2020-02-29] MEDS ORDERED: ZOFRAN ODT 4 MG PO ONE (11:48)
[2020-02-29] MEDS ORDERED: NORCO 5/325 MG PO ONE (11:48)
--- NOTE | 2020-02-29 11:51 | XRAY ---
Indication: Left flank pain. Congenitally absent right kidney. Multiple contiguous axial images obtained through the abdomen and pelvis without contrast using renal stone protocol. Comparison: Numerous priors, most recent February 10, 2020. Lung bases demonstrates stable small left costophrenic angle calcified granuloma and minimal right costophrenic angle fibrosis/scarring. No infiltrate or effusion. Heart is not enlarged. Right kidney again absent. Stable 2 nonobstructing punctate calculi in the left lower renal calyx. No hydronephrosis or hydroureter. Noncontrasted stomach and bowel loops remain nonobstructed again with left lower quadrant colostomy. Stable cholecystectomy and hysterectomy. No free fluid/air. Stable splenic calcified granulomas and IVC duplication. Remaining liver, pancreas, spleen, left kidney, left ureter, and bladder appear unremarkable for noncontrast exam. Stable minimal aortoiliac calcifications without AAA. Osseous structures intact with stable lumbosacral degenerative disc disease. Impression: 1. Stable nonobstructing left renal micro-calculi and congenitally absent right kidney. 2. Stable left lower quadrant colostomy without complications. 3. 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 4. Remaining CT abdomen/pelvis without contrast exam is negative.
[2020-02-29 11:53] LABS: Appearance CLOUDY (CLEAR); Bacteria FEW /HPF (NEGATIVE); Bilirubin NEGATIVE (NEGATIVE); Blood LARGE Ery/ul (0-5); Epithelial Cells FEW /HPF (FEW); Glucose NEGATIVE (NEGATIVE); Ketones NEGATIVE (NEGATIVE); Leukocyte Esterase TRACE (NEGATIVE); Nitrite NEGATIVE (NEGATIVE); Protein,Urine Dip 100 (Negative); Specific Gravity 1.019 (1.005-1.025); Urobilinogen NEGATIVE mg/dL (0-1); WBC 51-100 /HPF (0-5)
[2020-02-29 11:55] LABS: RBC >101 /HPF (0-2)
[2020-02-29] MEDS ORDERED: ZOFRAN ODT 4 MG ONE (12:12)
[2020-02-29] MEDS ORDERED: NORCO 5/325 MG ONE (12:13)
[2020-02-29 13:04] VITALS: BP 107/78; PULSE 79
[2020-02-29 13:31] VITALS: O2SAT 100
== END 2020-02-29 12:45 | disposition home or self-care (01) ==
LOC: ED 10:06
DX: R10.9 Unspecified abdominal pain (principal); N39.0 Urinary tract infection, site not specified; N20.0 Calculus of kidney; D71 Functional disorders of polymorphonuclear neutrophils
CPT/HCPCS: 74176; 81001; 87077; 87086; 87186; 99284; Q0162; A9270-GY

== ENCOUNTER 2020-04-11 15:51 | Emergency (ER) | payer OTHER ==
[2020-04-11 16:04] VITALS: BP 111/72; PULSE 84; O2SAT 98
[2020-04-11] MEDS ORDERED: Inapsine 5 MG/2 ML IM ONE (17:42)
[2020-04-11] MEDS ORDERED: BENADRYL 50 MG/ML IM ONE (17:43)
[2020-04-11] MEDS ORDERED: Inapsine 5 MG/2 ML ONE (17:44)
--- NOTE | 2020-04-11 17:51 | ERPHSYRPT ---
- History of Present Illness Time Seen by Provider: 04/11/20 16:30 Source: patient Exam Limitations: no limitations Patient Subjective Stated Complaint: Pt states "I have another migraine, I cannot get into the neurologist till may and this headache has gone on for two days." Triage Nursing Assessment: Pt presented alert and oriented X 3, skin pwd. Pt ambulates with an upright steady gait, able to speak in clear full sentences pt in no apparent respiratory distress. Physician History: Patient is a 45-year-old female with a history of chronic recurrent migraines presents to our ED with a typical migraine. Symptoms started approximately 2 days ago. Patient requesting Fioricet Phenergan and Benadryl for her migraine headache as this cocktail typically resolves her symptoms. No associated numbness tingling or weakness. No trauma. No fever. No neck pain. Patient has photophobia but this is typical of her usual migraine. No chest pain or shortness of breath. Patient voices no other complaints or concerns at this time. Timing/Duration: day(s) Severity: moderate Modifying Factors: Improves With: nothing Associated Symptoms: No nausea, No vomiting, No abdominal pain, No shortness of breath, No heartburn, No diaphoresis, No cough, No chills, No chest pain, No fever, No headaches, No loss of appetite, No malaise, No syncope, No seizure Allergies/Adverse Reactions: Sulfa (Sulfonamide Antibiotics) Allergy (Intermediate, Verified 02/29/20 10:24) Vomiting bee venom protein (honey bee) Allergy (Verified 02/29/20 10:24) methylprednisolone [From Solu-Medrol] Allergy (Verified 02/29/20 10:24) sumatriptan [From Imitrex] Allergy (Verified 02/29/20 10:24) ketorolac [From Toradol] Adverse Reaction (Verified 02/29/20 10:24) Nausea nitrofurantoin [From Macrobid] Adverse Reaction (Verified 02/29/20 10:24) tramadol Adverse Reaction (Verified 02/29/20 10:24) Nausea Home Medications: Gabapentin 600 mg PO QID 06/14/19 [History] Hx Tetanus, Diphtheria Vaccination/Date Given: No Hx Influenza Vaccination/Date Given: No Hx Pneumococcal Vaccination/Date Given: No Immunizations Up to Date: Yes Travel Risk - International Travel Have you traveled outside of the country in past 3 weeks: No - Coronavirus Screening Are you exhibiting any of the following symptoms?: No Close contact with a COVID-19 positive Pt in past 14-21 Days: No - Review of Systems Constitutional: No Symptoms, No Fever, No Chills Eyes: No Symptoms Ears, Nose, & Throat: No Symptoms Respiratory: No Symptoms, No Cough, No Dyspnea Cardiac: No Symptoms, No Chest Pain, No Edema, No Syncope Abdominal/Gastrointestinal: No Symptoms, No Abdominal Pain, No Nausea, No Vomiting, No Diarrhea Genitourinary Symptoms: No Symptoms, No Dysuria Musculoskeletal: No Symptoms, No Back Pain, No Neck Pain Skin: No Symptoms, No Rash Neurological: No Symptoms, No Dizziness, No Focal Weakness, No Sensory Changes Psychological: No Symptoms Endocrine: No Symptoms Hematologic/Lymphatic: No Symptoms Immunological/Allergic: No Symptoms All Other Systems: Reviewed and Negative - Past Medical History Pertinent Past Medical History: Yes Neurological History: Migraines ENT History: No Pertinent History Cardiac History: No Pertinent History Respiratory History: No Pertinent History Endocrine Medical History: No Pertinent History Musculoskeletal History: Arthritis GI Medical History: Gallbladder Disease History: Other Psycho-Social History: Bipolar Female Reproductive Disorders: Other - Past Surgical History Past Surgical History: Yes Neuro Surgical History: No Pertinent History Cardiac: No Pertinent History Respiratory: No Pertinent History Gastrointestinal: Cholecystectomy, Hernia Repair Genitourinary: Kidney Surgery Musculoskeletal: No Pertinent History Female Surgical History: Hysterectomy Other Surgical History: skin cancer removed twice, hernia removal - Social History Smoking Status: Current every day smoker How long have you smoked: years Exposure to second hand smoke: Yes Drug Use: none Patient Lives Alone: No - Female History Hx Last Menstrual Period: hysterectomy Hx Now: No - Nursing Vital Signs Nursing Vital Signs: Initial Vital Signs Temperature 98.4 F 04/11/20 16:00 Pulse Rate 84 04/11/20 16:00 Respiratory Rate 20 04/11/20 16:00 Blood Pressure 111/72 04/11/20 16:00 O2 Sat by Pulse Oximetry 98 04/11/20 16:00 Pain Scale Pain Intensity 8 - Physical Exam General Appearance: no apparent distress, alert Eye Exam: PERRL/EOMI, eyes nml inspection Ears, Nose, Throat Exam: normal ENT inspection, TMs normal, pharynx normal, moist mucous membranes Neck Exam: normal inspection, non-tender, supple, full range of motion Respiratory Exam: normal breath sounds, lungs clear, No respiratory distress Cardiovascular Exam: regular rate/rhythm, normal heart sounds, normal peripheral pulses Gastrointestinal/Abdomen Exam: soft, normal bowel sounds, No tenderness, No mass Back Exam: normal inspection, normal range of motion, No CVA tenderness, No vertebral tenderness Extremity Exam: normal inspection, normal range of motion, pelvis stable Neurologic Exam: alert, oriented x 3, cooperative, normal mood/affect, nml cerebellar function, nml station & gait, sensation nml, No motor deficits Skin Exam: normal color, warm, dry, No rash Lymphatic Exam: No adenopathy SpO2 Interpretation: normal SpO2: 98 O2 Delivery: Room Air - Course Nursing assessment & vital signs reviewed: Yes Ordered Tests: Medication Summary Generic Name Dose Route Start Last Admin Trade Name Freq PRN Reason Stop Dose Admin Non-Formulary Dru each 04/11/20 18:00 Butalbatal/Apap/ PO 04/11/20 18:01 Caffiene Tab NOW ONE Non-Formulary Dru each 04/11/20 17:50 Butalbatal/Apap/ PO Caffiene Tab Q4H PRN PRN Discontinued Medications Generic Name Dose Route Start Last Admin Trade Name Freq PRN Reason Stop Dose Admin Diphenhydramine HCl 25 mg 04/11/20 17:43 Benadryl 50 Mg/Ml IM 04/11/20 17:44 STAT ONE Droperidol 5 mg 04/11/20 17:42 04/11/20 17:46 Inapsine 5 Mg/2 Ml IM 04/11/20 17:43 Not Given STAT ONE Droperidol Confirm 04/11/20 17:44 Inapsine 5 Mg/2 Ml Administered 04/11/20 17:45 Dose 5 mg .ROUTE .STK-MED ONE Promethazine HCl 25 mg 04/11/20 17:54 Phenergan 25 Mg Inj IM 04/11/20 17:55 STAT ONE - Progress Progress: improved Progress Note: 04/11/20 17:51 Patient reassessed. Repeat neuro exam within normal limits. Headache much improved. Patient requesting discharge. Patient currently has an appointment scheduled for May to see her neurologist for long-term management of her chronic recurrent headaches. No indication for further work-up at this time. Patient is requesting discharge will discharge according to patient's request. Patient voices no other complaints or concerns. Counseled pt/family regarding: diagnosis, need for follow-up - Departure Departure Disposition: Home Clinical Impression: Migraine Condition: Stable Critical Care Time: No Referrals: GASTON CAMPUZANO [Primary Care Provider] - Additional Instructions: Discharge/Care Plan NATHAN MENDOZA was seen on 04/11/20 in the Emergency Room. The patient was counseled regarding Diagnosis,Lab results, Imaging studies, need for follow up and when to return to the Emergency Room. Prescriptions given: Discharge Note I have spoken with the patient and/or caregivers. I have explained the patient's condition, diagnosis and treatment plan based on the information available to me at this time. I have answered the patient's and/or caregiver's questions and addressed any concerns. The patient and/or caregivers have as good understanding of the patient's diagnosis, condition and treatment plan as can be expected at this point. The vital signs have been stable. The patient's condition is stable and appropriate for discharge from the emergency department. The patient will pursue further outpatient evaluation with the primary care physician or other designated or consulting physician as outlined in the discharge instructions. The patient and/or caregivers are agreeable to this plan of care and follow-up instructions have been explained in detail. The patient and/or caregivers have received these instruction. The patient/and or caregivers are aware that any significant change in condition or worsening of symptoms should prompt an immediate return to this or the closest emergency department or call 911.
[2020-04-11] MEDS ORDERED: Phenergan 25 MG INJ IM ONE (17:54)
[2020-04-11] MEDS ORDERED: BENADRYL 50 MG/ML ONE (17:56)
[2020-04-11] MEDS ORDERED: Phenergan 25 MG INJ ONE (17:56)
[2020-04-11] MEDS: NON-FORMULARY ITEM PO PRN ×2 (18:00→18:04)
[2020-04-11] MEDS ORDERED: NON-FORMULARY ITEM PO ONE (18:00)
== END 2020-04-11 18:12 | disposition home or self-care (01) ==
LOC: ED 15:51
DX: G43.909 Migraine, unspecified, not intractable, without status migrainosus (principal)
CPT/HCPCS: 96372; 99284; J1200; J2550

== ENCOUNTER 2020-04-15 16:22 | Emergency (ER) | payer OTHER ==
--- NOTE | 2020-04-15 16:24 | ERPHSYRPT ---
- History of Present Illness Time Seen by Provider: 04/15/20 16:24 Source: patient Exam Limitations: no limitations Physician History: This is a 45-year-old white female who presents with 2-day history of wheezing cough and shortness of breath. She has had no fever. This time of the year she gets at least a bronchitis. Patient was here 4 days ago and did not have the symptoms that she complains about now. She was treated for migraine on 04/11/2020. Patient is a chronic daily smoker of cigarettes. She has a history of bipolar disorder. Patient states that her will be driving her home. Patient states that her back is hurting because of coughing so much in the last 48 hours. Patient states that she cannot take oral prednisone medication and has done so in the past without any problems. Timing/Duration: day(s) (2) Cough Quality/Degree: moderate, productive cough Possible Cause: occasional episodes Modifying Factors: Improves With: coughing, deep breath Associated Symptoms: cough, wheezing, No chest pain/soreness Allergies/Adverse Reactions: Sulfa (Sulfonamide Antibiotics) Allergy (Intermediate, Verified 02/29/20 10:24) Vomiting bee venom protein (honey bee) Allergy (Verified 02/29/20 10:24) methylprednisolone [From Solu-Medrol] Allergy (Verified 02/29/20 10:24) sumatriptan [From Imitrex] Allergy (Verified 02/29/20 10:24) ketorolac [From Toradol] Adverse Reaction (Verified 02/29/20 10:24) Nausea nitrofurantoin [From Macrobid] Adverse Reaction (Verified 02/29/20 10:24) tramadol Adverse Reaction (Verified 02/29/20 10:24) Nausea Home Medications: Gabapentin 600 mg PO QID 06/14/19 [History] Hx Tetanus, Diphtheria Vaccination/Date Given: No Hx Influenza Vaccination/Date Given: No Hx Pneumococcal Vaccination/Date Given: No Travel Risk - International Travel Have you traveled outside of the country in past 3 weeks: No - Coronavirus Screening Are you exhibiting any of the following symptoms?: No Close contact with a COVID-19 positive Pt in past 14-21 Days: No - Review of Systems Constitutional: No Symptoms Eyes: No Symptoms Ears, Nose, & Throat: No Symptoms Respiratory: Cough, Wheezing Cardiac: No Symptoms Abdominal/Gastrointestinal: No Symptoms Genitourinary Symptoms: No Symptoms Musculoskeletal: No Symptoms Skin: No Symptoms Neurological: No Symptoms Psychological: No Symptoms Endocrine: No Symptoms Hematologic/Lymphatic: No Symptoms Immunological/Allergic: No Symptoms All Other Systems: Reviewed and Negative - Past Medical History Pertinent Past Medical History: Yes Neurological History: Migraines ENT History: No Pertinent History Cardiac History: No Pertinent History Respiratory History: No Pertinent History Endocrine Medical History: No Pertinent History Musculoskeletal History: Arthritis GI Medical History: Gallbladder Disease History: Other Psycho-Social History: Bipolar Female Reproductive Disorders: Other - Past Surgical History Past Surgical History: Yes Neuro Surgical History: No Pertinent History Cardiac: No Pertinent History Respiratory: No Pertinent History Gastrointestinal: Cholecystectomy, Hernia Repair Genitourinary: Kidney Surgery Musculoskeletal: No Pertinent History Female Surgical History: Hysterectomy Other Surgical History: skin cancer removed twice, hernia removal - Social History Smoking Status: Current every day smoker How long have you smoked: years Exposure to second hand smoke: Yes Drug Use: none Patient Lives Alone: No - Nursing Vital Signs Nursing Vital Signs: Initial Vital Signs Temperature 98.1 F 04/15/20 16:24 Pulse Rate 99 H 04/15/20 16:24 Respiratory Rate 20 04/15/20 16:24 Blood Pressure 152/94 04/15/20 16:24 O2 Sat by Pulse Oximetry 95 04/15/20 16:24 Pain Scale Pain Intensity 0 - Physical Exam General Appearance: mild distress, alert, anxiety Eye Exam: PERRL/EOMI, eyes nml inspection Ears, Nose, Throat Exam: normal ENT inspection, moist mucous membranes Neck Exam: normal inspection, non-tender, supple, full range of motion Respiratory Exam: airway intact, diminished breath sounds (Bilateral bases), wheezing (Lateral), No chest tenderness, No respiratory distress Cardiovascular Exam: regular rate/rhythm, normal heart sounds, normal peripheral pulses Gastrointestinal/Abdomen Exam: soft, normal bowel sounds, No tenderness Pelvic Exam: not done Rectal Exam: not done Back Exam: normal inspection, normal range of motion, No CVA tenderness, No vertebral tenderness Extremity Exam: normal inspection, normal range of motion, pelvis stable Neurologic Exam: alert, oriented x 3, cooperative, creative strategist II-XII nml as tested, normal mood/affect, nml cerebellar function, nml station & gait, sensation nml Skin Exam: normal color, warm, No dry Lymphatic Exam: No adenopathy SpO2 Interpretation: normal O2 Delivery: Room Air - Course Nursing assessment & vital signs reviewed: Yes Ordered Tests: Active Orders 24 hr Category Date Time Status Air Purifier Servicer STAT Care 04/15/20 16:50 Active IV Insertion STAT Care 04/15/20 16:49 Active Oxygen-ED Only Nasal Cannula 2 lpm Care 04/15/20 18:06 Active Pulse Oximetry (ED) STAT Care 04/15/20 16:49 Active CHEST 1 VIEW (PORTABLE) Stat Exams 04/15/20 16:50 Taken BLOOD CULTURE Stat Lab 04/15/20 17:26 Received CBC W DIFF Stat Lab 04/15/20 17:26 Completed CMP Stat Lab 04/15/20 17:26 Completed CULTURE,SPUTUM Stat Lab 04/15/20 18:41 Received D-DIMER QUANTITATIVE Stat Lab 04/15/20 17:10 Completed INFLUENZA A+B NELLY Stat Lab 04/15/20 17:26 Completed Lactic Acid Stat Lab 04/15/20 16:49 Completed Respiratory Therapy Assessment DAILY RT 04/15/20 17:01 Completed Medication Summary Generic Name Dose Route Start Last Admin Trade Name Freq PRN Reason Stop Dose Admin Prednisone 20 mg 04/16/20 16:52 04/15/20 17:01 Deltasone 20 Mg PO 04/16/20 16:53 20 mg STAT ONE Administration Discontinued Medications Generic Name Dose Route Start Last Admin Trade Name Freq PRN Reason Stop Dose Admin Hydrocodone Bitart/Acetaminophen 15 ml 04/15/20 16:51 04/15/20 17:01 Hydrocodone-Acetamin 2.5-108/5 Ml Solution PO 04/15/20 16:52 15 ml STAT STA Administration Hydrocodone Bitart/Acetaminophen Confirm 04/15/20 17:00 Hydrocodone-Acetamin 2.5-108/5 Ml Solution Administered 04/15/20 17:01 Dose 15 ml .ROUTE .STK-MED ONE Albuterol Sulfate Confirm 04/15/20 16:56 Proventil 2.5 Mg/3 Ml Neb Administered 04/15/20 16:57 Dose 2.5 mg IH .STK-MED ONE Albuterol Sulfate 2.5 mg 04/15/20 17:01 04/15/20 17:03 Proventil 2.5 Mg/3 Ml Neb IH 04/15/20 17:02 2.5 mg STAT ONE Administration Ondansetron HCl 4 mg 04/15/20 16:52 04/15/20 17:01 Zofran 4 Mg/2 Ml Vial IV 04/15/20 16:53 4 mg STAT ONE Administration Ondansetron HCl Confirm 04/15/20 16:59 Zofran 4 Mg/2 Ml Vial Administered 04/15/20 17:00 Dose 4 mg .ROUTE .STK-MED ONE Prednisone Confirm 04/15/20 17:00 Deltasone 20 Mg Administered 04/15/20 17:01 Dose 20 mg .ROUTE .STK-MED ONE Lab/Rad Data: Laboratory Result Diagrams 04/15/20 17:26 04/15/20 17:26 Laboratory Results 04/15/20 04/15/20 04/15/20 Range/Units 17:26 17:26 17:26 WBC (4.0-10.5) K/mm3 RBC (4.1-5.4) M/mm3 Hgb (12.0-16.0) gm/dl Hct (35-47) % MCV (78-100) fl MCH (26-32) pg MCHC (32-36) g/dl RDW (11.5-14.0) % Plt Count (150-450) K/mm3 MPV (7.5-11.0) fl Gran % (36.0-66.0) % Eos # (Auto) (0-0.5) Absolute Lymphs (auto) (1.0-4.6) Absolute Monos (auto) (0.0-1.3) Lymphocytes % (24.0-44.0) % Monocytes % (0.0-12.0) % Eosinophils % (0.00-5.0) % Basophils % (0.0-0.4) % Absolute Granulocytes (1.4-6.9) Basophils # (0-0.4) D-Dimer (215-500) ng/mL Sodium 139 (137-145) mmol/L Potassium 3.6 (3.5-5.1) mmol/L Chloride 111 H (98-107) mmol/L Carbon Dioxide 21 L (22-30) mmol/L Anion Gap 11.1 (5-15) MEQ/L BUN 14 (7-17) mg/dL Creatinine 0.63 (0.52-1.04) mg/dL Estimated GFR > 60.0 ML/MIN Glucose 63 L (74-106) mg/dL Lactic Acid (0.4-2.0) Calcium 9.4 (8.4-10.2) mg/dL Total Bilirubin 0.30 (0.2-1.3) mg/dL AST 40 H (14-36) U/L ALT 25 (0-35) U/L Alkaline Phosphatase 126 (38-126) U/L Serum Total Protein 8.1 (6.3-8.2) g/dL Albumin 4.2 (3.5-5.0) g/dL Influenza Type A Ag NEGATIVE (NEGATIVE) Influenza Type B Ag NEGATIVE (NEGATIVE) Group A Strep Antibody NOT DETECTED (NEGATIVE) 04/15/20 04/15/20 04/15/20 Range/Units 17:26 17:10 16:49 WBC 12.3 H (4.0-10.5) K/mm3 RBC 4.74 (4.1-5.4) M/mm3 Hgb 15.1 (12.0-16.0) gm/dl Hct 46.1 (35-47) % MCV 97.3 (78-100) fl MCH 31.9 (26-32) pg MCHC 32.8 (32-36) g/dl RDW 15.3 H (11.5-14.0) % Plt Count 420 (150-450) K/mm3 MPV 9.7 (7.5-11.0) fl Gran % 53.1 (36.0-66.0) % Eos # (Auto) 0.67 H (0-0.5) Absolute Lymphs (auto) 4.04 (1.0-4.6) Absolute Monos (auto) 1.05 (0.0-1.3) Lymphocytes % 32.8 (24.0-44.0) % Monocytes % 8.5 (0.0-12.0) % Eosinophils % 5.4 H (0.00-5.0) % Basophils % 0.2 (0.0-0.4) % Absolute Granulocytes 6.52 (1.4-6.9) Basophils # 0.02 (0-0.4) D-Dimer 322 (215-500) ng/mL Sodium (137-145) mmol/L Potassium (3.5-5.1) mmol/L Chloride (98-107) mmol/L Carbon Dioxide (22-30) mmol/L Anion Gap (5-15) MEQ/L BUN (7-17) mg/dL Creatinine (0.52-1.04) mg/dL Estimated GFR ML/MIN Glucose (74-106) mg/dL Lactic Acid 1.5 (0.4-2.0) Calcium (8.4-10.2) mg/dL Total Bilirubin (0.2-1.3) mg/dL AST (14-36) U/L ALT (0-35) U/L Alkaline Phosphatase (38-126) U/L Serum Total Protein (6.3-8.2) g/dL Albumin (3.5-5.0) g/dL Influenza Type A Ag (NEGATIVE) Influenza Type B Ag (NEGATIVE) Group A Strep Antibody (NEGATIVE) - Progress Progress: improved, re-examined Air Movement: fair Progress Note: 04/15/20 18:44 Chest x-ray shows no acute cardiopulmonary process. There are no changes in today's chest x-ray when compared to chest x-ray performed on 08/23/2019. Blood Culture(s) Obtained: Yes Antibiotics given: Yes Counseled pt/family regarding: lab results, diagnosis, need for follow-up, rad results - Departure Departure Disposition: Home Clinical Impression: Bronchitis, Upper respiratory infection Condition: Stable Critical Care Time: No Referrals: GASTON CAMPUZANO [Primary Care Provider] - Additional Instructions: Eliminate exposure to all smoke. Drink plenty of fluids. Take your medication as prescribed. Follow-up with your primary care physician for further management. Prescriptions: Hydrocodone/Acetaminophen [Hydrocodone-Acetamn 7.5-325/15] 10 ml PO Q8H PRN PRN #120 solution MDD 30 ml PRN Reason: Cough Prednisone 10 mg [Deltasone 10 mg] 10 mg PO TID #12 tablet Levofloxacin [Levaquin 500 MG Tablet] 500 mg PO DAILY #7 tablet
[2020-04-15] MEDS ORDERED: HYDROCODONE-ACETAMIN 2.5-108/5 ML SOLUTION PO STA ×2 (16:51→18:52)
[2020-04-15] MEDS ORDERED: Zofran 4 MG/2 ML VIAL IV ONE (16:52)
[2020-04-15] MEDS ORDERED: PROVENTIL 2.5 MG/3 ML NEB IH ONE ×2 (16:56→17:01)
[2020-04-15] MEDS ORDERED: Zofran 4 MG/2 ML VIAL ONE (16:59)
[2020-04-15] MEDS ORDERED: HYDROCODONE-ACETAMIN 2.5-108/5 ML SOLUTION ONE ×2 (17:00→19:06)
[2020-04-15] MEDS ORDERED: DELTASONE 20 MG ONE (17:00)
[2020-04-15 17:30] LABS: Absolute Neutrophil Ct (ANC) 6.52 (1.4-6.9); BASOPHIL % 0.2 % (0.0-0.4); Basophil (Absolute #) 0.02 (0-0.4); Eosinophil % 5.4 % (0.00-5.0); Eosinophil (Absolute #) 0.67 (0-0.5); Hematocrit 46.1 % (35-47); Hemoglobin 15.1 gm/dl (12.0-16.0); Lymphocyte (Absolute #) 4.04 (1.0-4.6); Lymphocytes % 32.8 % (24.0-44.0); Mean Cell Volume 97.3 fl (78-100); Mean Corpuscular Hemoglobin 31.9 pg (26-32); Mean Corpuscular Hgb Concent. 32.8 g/dl (32-36); Mean Platelet Volume 9.7 fl (7.5-11.0); Monocyte (Absolute #) 1.05 (0.0-1.3); Monocytes % 8.5 % (0.0-12.0); Neutrophil % 53.1 % (36.0-66.0); Platelet Count 420 K/mm3 (150-450); Red Blood Count 4.74 M/mm3 (4.1-5.4); Red Cell Distribution Width 15.3 % (11.5-14.0); White Blood Count 12.3 K/mm3 (4.0-10.5)
[2020-04-15 17:44] LABS: ALBUMIN 4.2 g/dL (3.5-5.0); ALKALINE PHOSPHATASE 126 U/L (38-126); ANION GAP 11.1 MEQ/L (5-15); BLOOD UREA NITROGEN 14 mg/dL (7-17); CHLORIDE 111 mmol/L (98-107); Calcium 9.4 mg/dL (8.4-10.2); Carbon Dioxide 21 mmol/L (22-30); Creatinine 1 0.63 mg/dL (0.52-1.04); EST GLOMERULAR FILTRATION RATE > 60.0 ML/MIN; Glucose 63 mg/dL (74-106); Potassium 3.6 mmol/L (3.5-5.1); SGOT/AST 40 U/L (14-36); SGPT/ALT 25 U/L (0-35); SODIUM 139 mmol/L (137-145); Total Protein 8.1 g/dL (6.3-8.2)
[2020-04-15 18:00] LABS: INFLUENZA A NEGATIVE (NEGATIVE); INFLUENZA B NEGATIVE (NEGATIVE)
[2020-04-15] MEDS ORDERED: Levofloxacin 500 MG Tablet PO ONE (18:47)
[2020-04-15] MEDS ORDERED: Levofloxacin 500 MG Tablet ONE (19:05)
[2020-04-15 19:26] VITALS: O2SAT 94
[2020-04-15 19:28] VITALS: BP 104/63; PULSE 74
--- NOTE | 2020-04-15 21:11 | XRAY ---
Indication: Cough. Bronchitis. Comparison: August 23, 2019. Portable chest remains hyperinflated and clear. Heart and mediastinal structures within normal limits. Bony thorax intact. No new/acute findings. Impression: Continued nonacute hyperinflated chest.
[2020-04-16] MEDS ORDERED: DELTASONE 20 MG PO ONE (16:52)
== END 2020-04-15 19:27 | disposition home or self-care (01) ==
LOC: ED 16:22
DX: J40 Bronchitis, not specified as acute or chronic (principal); J06.9 Acute upper respiratory infection, unspecified
CPT/HCPCS: 36000; 36415; 71045; 80053; 83605; 85025; 85379; 87040; 87070; 87400; 87651; 93041; 94640; 94667; 94760; 96374; 99284; J2405; J7609; A9270-GY

== ENCOUNTER 2020-06-10 06:13 | Emergency (ER) | payer OTHER ==
[2020-06-10] MEDS ORDERED: XYLOCAINE 1% HCL 20 ML MDV IJ ONE (06:14)
--- NOTE | 2020-06-10 06:26 | ERPHSYRPT ---
- History of Present Illness Time Seen by Provider: 06/10/20 06:26 Source: patient Exam Limitations: no limitations Physician History: This is a 45-year-old white female who continues to smoke cigarettes despite recurrent bronchitis symptoms. Patient began having coughing and wheezing 2 days ago. She started some prednisone that she had remaining from a prior visit in this emergency room on 04/15/2020. In addition, her primary care doctor, Dr. Zuluaga, called in an albuterol inhaler yesterday which she began using. Patient does have nebulizer treatments of albuterol. Patient states that she is able to take prednisone orally without any problems. The combination of Levaquin, hydrocodone cough medication and prednisone helped her a great deal from the last time she had an episode of acute bronchitis. She denies chest pain. She denies fever. She denies shortness of breath. Timing/Duration: day(s) (2) Cough Quality/Degree: moderate, dry cough Possible Cause: frequent episodes Modifying Factors: Improves With: coughing Associated Symptoms: cough, wheezing, No fever, No chest pain/soreness, No muscle aches Allergies/Adverse Reactions: Sulfa (Sulfonamide Antibiotics) Allergy (Intermediate, Verified 06/10/20 06:17) Vomiting bee venom protein (honey bee) Allergy (Verified 06/10/20 06:17) methylprednisolone [From Solu-Medrol] Allergy (Verified 06/10/20 06:17) sumatriptan [From Imitrex] Allergy (Verified 06/10/20 06:17) ketorolac [From Toradol] Adverse Reaction (Verified 06/10/20 06:17) Nausea nitrofurantoin [From Macrobid] Adverse Reaction (Verified 06/10/20 06:17) tramadol Adverse Reaction (Verified 06/10/20 06:17) Nausea Home Medications: Gabapentin 600 mg PO QID 06/14/19 [History] Prednisone 10 mg [Deltasone 10 mg] 10 mg PO DAILY 06/10/20 [History] Hx Tetanus, Diphtheria Vaccination/Date Given: No Hx Influenza Vaccination/Date Given: No Hx Pneumococcal Vaccination/Date Given: No Travel Risk - International Travel Have you traveled outside of the country in past 3 weeks: No - Coronavirus Screening Are you exhibiting any of the following symptoms?: No Close contact with a COVID-19 positive Pt in past 14-21 Days: No - Review of Systems Constitutional: No Symptoms Eyes: No Symptoms Ears, Nose, & Throat: No Symptoms Respiratory: Cough, Wheezing Cardiac: No Symptoms Abdominal/Gastrointestinal: No Symptoms Genitourinary Symptoms: No Symptoms Musculoskeletal: No Symptoms Skin: No Symptoms Neurological: No Symptoms Psychological: No Symptoms Endocrine: No Symptoms Hematologic/Lymphatic: No Symptoms Immunological/Allergic: No Symptoms All Other Systems: Reviewed and Negative - Past Medical History Pertinent Past Medical History: Yes Neurological History: Migraines ENT History: No Pertinent History Cardiac History: No Pertinent History Respiratory History: No Pertinent History Endocrine Medical History: No Pertinent History Musculoskeletal History: Arthritis GI Medical History: Gallbladder Disease History: Other Psycho-Social History: Bipolar Female Reproductive Disorders: Other - Past Surgical History Past Surgical History: Yes Neuro Surgical History: No Pertinent History Cardiac: No Pertinent History Respiratory: No Pertinent History Gastrointestinal: Cholecystectomy, Hernia Repair Genitourinary: Kidney Surgery Musculoskeletal: No Pertinent History Female Surgical History: Hysterectomy Other Surgical History: skin cancer removed twice, hernia removal - Social History Smoking Status: Current every day smoker How long have you smoked: years Exposure to second hand smoke: Yes Drug Use: none Patient Lives Alone: No - Physical Exam General Appearance: mild distress, alert, anxiety, thin Eye Exam: PERRL/EOMI, eyes nml inspection Ears, Nose, Throat Exam: normal ENT inspection, moist mucous membranes Neck Exam: normal inspection, non-tender, supple, full range of motion Respiratory Exam: airway intact, rhonchi (Mild bilateral), wheezing, No chest tenderness, No respiratory distress Cardiovascular Exam: regular rate/rhythm, normal heart sounds, normal peripheral pulses Gastrointestinal/Abdomen Exam: soft, tenderness Pelvic Exam: not done Rectal Exam: not done Back Exam: normal inspection, normal range of motion, No CVA tenderness, No vertebral tenderness Extremity Exam: normal inspection, normal range of motion, pelvis stable Neurologic Exam: alert, oriented x 3, 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 Especially this time of the year she gets upper respiratory infections often. She continues to smoke but she states that she has decreased her smoking to 1/2 pack of cigarettes a day. We will treat her for bronchitis and pneumonia. She does not feel she needs a chest x-ray since we are going to treat her for pneumonia. Patient is to continue her new albuterol inhaler and her nebulizer treatments. Blood Culture(s) Obtained: No Antibiotics given: Yes Counseled pt/family regarding: diagnosis, need for follow-up - Departure Departure Disposition: Home Clinical Impression: Upper respiratory infection Condition: Stable Critical Care Time: No Referrals: GASTON ZULUAGA [Primary Care Provider] - Additional Instructions: Avoid exposure to any type of smoke. Take your medication as prescribed. Use your albuterol nebulizer treatments at least 4 times a day while awake. Return to the emergency department if your symptoms worsen. Prescriptions: Hydrocodone/Acetaminophen [Hydrocodone-Acetamn 7.5-325/15] 10 ml PO Q8H PRN PRN #120 ml MDD 30 ml PRN Reason: Cough Cefdinir 300 mg PO BID 7 Days #14 capsule Prednisone 10 mg [Deltasone 10 mg] 10 mg PO TID #12 tablet
[2020-06-10] MEDS ORDERED: Rocephin 1000 MG INJ IM ONE (06:38)
[2020-06-10] MEDS ORDERED: DELTASONE 20 MG PO ONE (06:39)
[2020-06-10] MEDS ORDERED: HYDROCODONE-ACETAMIN 2.5-108/5 ML SOLUTION PO STA (06:40)
[2020-06-10] MEDS ORDERED: DELTASONE 20 MG ONE (06:44)
[2020-06-10] MEDS ORDERED: HYDROCODONE-ACETAMIN 2.5-108/5 ML SOLUTION ONE (06:44)
[2020-06-10] MEDS ORDERED: Rocephin 1000 MG INJ ONE (06:45)
[2020-06-10 07:10] VITALS: BP 142/76; PULSE 98; O2SAT 97
== END 2020-06-10 07:07 | disposition home or self-care (01) ==
LOC: ED 06:13
DX: J06.9 Acute upper respiratory infection, unspecified (principal); F17.210 Nicotine dependence, cigarettes, uncomplicated; R05 Cough; R06.2 Wheezing; Z79.899 Other long term (current) drug therapy
CPT/HCPCS: 96372; 99284; J0696; A9270-GY

== ENCOUNTER 2020-06-16 16:33 | Observation (INO) | payer OTHER ==
[2020-06-16] MEDS ORDERED: DUONEB 0.5-3 MG/3 ml Neb IH ONE (17:09)
[2020-06-16] MEDS ORDERED: SUBLIMAZE 100 MCG/2 ML IV ONE ×2 (17:09→19:10)
[2020-06-16] MEDS ORDERED: Zofran 4 MG/2 ML VIAL IV ONE (17:09)
[2020-06-16] MEDS ORDERED: Sodium Chloride 0.9% 1000 ML 1,000 ML IV SCH ×2 (17:15→19:15)
[2020-06-16 17:22] LABS: Absolute Neutrophil Ct (ANC) 8.31 (1.4-6.9); BASOPHIL % 0.1 % (0.0-0.4); Basophil (Absolute #) 0.01 (0-0.4); Eosinophil % 6.6 % (0.00-5.0); Eosinophil (Absolute #) 0.82 (0-0.5); Hematocrit 43.9 % (35-47); Lymphocyte (Absolute #) 2.15 (1.0-4.6); Lymphocytes % 17.4 % (24.0-44.0); Mean Cell Volume 99.5 fl (78-100); Mean Corpuscular Hemoglobin 31.7 pg (26-32); Mean Corpuscular Hgb Concent. 31.9 g/dl (32-36); Mean Platelet Volume 8.5 fl (7.5-11.0); Monocyte (Absolute #) 1.07 (0.0-1.3); Monocytes % 8.7 % (0.0-12.0); Neutrophil % 67.2 % (36.0-66.0); Platelet Count 489 K/mm3 (150-450); Red Blood Count 4.41 M/mm3 (4.1-5.4); Red Cell Distribution Width 14.3 % (11.5-14.0); White Blood Count 12.4 K/mm3 (4.0-10.5)
[2020-06-16 17:25] LABS: INR 1.08 (0.8-3.0); PROTIME 12.2 SECONDS (9.95-12.35)
[2020-06-16 17:30] LABS: ALBUMIN 4.5 g/dL (3.5-5.0); ALKALINE PHOSPHATASE 110 U/L (38-126); ANION GAP 14.4 MEQ/L (5-15); BLOOD UREA NITROGEN 14 mg/dL (7-17); CHLORIDE 100 mmol/L (98-107); Calcium 9.4 mg/dL (8.4-10.2); Carbon Dioxide 25 mmol/L (22-30); Creatinine 1 0.54 mg/dL (0.52-1.04); EST GLOMERULAR FILTRATION RATE > 60.0 ML/MIN; Glucose 124 mg/dL (74-106); Potassium 4.6 mmol/L (3.5-5.1); SGOT/AST 33 U/L (14-36); SGPT/ALT 36 U/L (0-35); SODIUM 135 mmol/L (137-145); Total Protein 8.1 g/dL (6.3-8.2)
[2020-06-16] MEDS ORDERED: SUBLIMAZE 100 MCG/2 ML ONE ×2 (17:35→19:11)
[2020-06-16] MEDS ORDERED: Zofran 4 MG/2 ML VIAL ONE (17:35)
[2020-06-16] MEDS ORDERED: Sodium Chloride 0.9% 1000 ML 1,000 ML ONE ×2 (17:36→21:12)
[2020-06-16 17:46] LABS: NT PRO BNP 42.8 pg/mL (0-450)
[2020-06-16] MEDS ORDERED: VENTOLIN COMMON CANISTER IH ONE (17:46)
[2020-06-16 18:03] LABS: INFLUENZA A NEGATIVE (NEGATIVE); INFLUENZA B NEGATIVE (NEGATIVE)
[2020-06-16 18:25] LABS: Appearance CLEAR (CLEAR); Bilirubin NEGATIVE (NEGATIVE); Blood NEGATIVE Ery/ul (0-5); Epithelial Cells RARE /HPF (FEW); Glucose NEGATIVE (NEGATIVE); Ketones NEGATIVE (NEGATIVE); Leukocyte Esterase NEGATIVE (NEGATIVE); Nitrite NEGATIVE (NEGATIVE); Protein,Urine Dip NEGATIVE (Negative); Specific Gravity 1.013 (1.005-1.025); Urobilinogen NEGATIVE mg/dL (0-1); WBC 0-2 /HPF (0-5)
[2020-06-16] MEDS ORDERED: ROCEPHIN 1 Gm-D5w 50 ml Bag** 1 G/50 ML IVPB IV STA (18:54)
--- NOTE | 2020-06-16 18:55 | ERPHSYRPT ---
- History of Present Illness Time Seen by Provider: 06/16/20 16:55 Source: patient Exam Limitations: no limitations Patient Subjective Stated Complaint: Pt states "I feel like crap. I have bee coughing for the past week and I have taken cefdinire, presdnisone and alobuter ol for the past week and it is not helping." Triage Nursing Assessment: Pt presented alert and oriented X 3, skin pwd Pt ambulates with an upright steady gait, able to speak in clear full setnenecs pt has audible wheezing noted. Physician History: Patient is a 45-year-old female with longstanding COPD who presents with a cough for well over a week she has been treated with cefdinir prednisone and albuterol as an outpatient without benefit. She says she had a fever to 102 last night and feels like this is either bronchitis or pneumonia or exacerbation of her COPD she has been sick for 1 month on and off. Timing/Duration: week(s) (4) Cough Quality/Degree: severe, productive cough Possible Cause: occasional episodes, chronic episodes Modifying Factors: Improves With: albuterol nebulizer, coughing Associated Symptoms: fever, chills, cough, shortness of breath, wheezing Allergies/Adverse Reactions: Sulfa (Sulfonamide Antibiotics) Allergy (Intermediate, Verified 06/10/20 06:17) Vomiting bee venom protein (honey bee) Allergy (Verified 06/10/20 06:17) methylprednisolone [From Solu-Medrol] Allergy (Verified 06/10/20 06:17) sumatriptan [From Imitrex] Allergy (Verified 06/10/20 06:17) ketorolac [From Toradol] Adverse Reaction (Verified 06/10/20 06:17) Nausea nitrofurantoin [From Macrobid] Adverse Reaction (Verified 06/10/20 06:17) tramadol Adverse Reaction (Verified 06/10/20 06:17) Nausea Home Medications: Gabapentin 600 mg PO QID 06/14/19 [History] Hx Tetanus, Diphtheria Vaccination/Date Given: No Hx Influenza Vaccination/Date Given: No Hx Pneumococcal Vaccination/Date Given: No Immunizations Up to Date: Yes Travel Risk - International Travel Have you traveled outside of the country in past 3 weeks: No - Coronavirus Screening Are you exhibiting any of the following symptoms?: No Close contact with a COVID-19 positive Pt in past 14-21 Days: No - Review of Systems Constitutional: Fever, Chills Eyes: No Symptoms Ears, Nose, & Throat: No Symptoms Respiratory: Cough, Dyspnea, Dyspnea on Exertion (PERRY), Wheezing - Past Medical History Pertinent Past Medical History: Yes Neurological History: Migraines ENT History: No Pertinent History Cardiac History: No Pertinent History Respiratory History: No Pertinent History Endocrine Medical History: No Pertinent History Musculoskeletal History: Arthritis GI Medical History: Gallbladder Disease History: Other Psycho-Social History: Bipolar Female Reproductive Disorders: Other - Past Surgical History Past Surgical History: Yes Neuro Surgical History: No Pertinent History Cardiac: No Pertinent History Respiratory: No Pertinent History Gastrointestinal: Cholecystectomy, Hernia Repair Genitourinary: Kidney Surgery Musculoskeletal: No Pertinent History Female Surgical History: Hysterectomy Other Surgical History: skin cancer removed twice, hernia removal - Social History Smoking Status: Current every day smoker How long have you smoked: years Exposure to second hand smoke: Yes Drug Use: none Patient Lives Alone: No - Female History Hx Now: No - Nursing Vital Signs Nursing Vital Signs: Initial Vital Signs Temperature 98.2 F 06/16/20 16:41 Pulse Rate 96 H 06/16/20 16:41 Respiratory Rate 22 06/16/20 16:41 Blood Pressure 147/93 06/16/20 16:41 O2 Sat by Pulse Oximetry 97 06/16/20 16:41 Pain Scale Pain Intensity 6 - Physical Exam General Appearance: moderate distress, alert Eye Exam: PERRL/EOMI, eyes nml inspection Ears, Nose, Throat Exam: normal ENT inspection, TMs normal, pharynx normal, moist mucous membranes Neck Exam: normal inspection, non-tender, supple, full range of motion Respiratory Exam: lungs clear, prolonged expirations, crackles/rales, rhonchi, wheezing, No respiratory distress Cardiovascular Exam: regular rate/rhythm, normal heart sounds Gastrointestinal/Abdomen Exam: soft, No tenderness Back Exam: normal inspection, No CVA tenderness, No vertebral tenderness Extremity Exam: normal inspection, normal range of motion Neurologic Exam: alert, oriented x 3, cooperative, normal mood/affect, sensation nml, No motor deficits Skin Exam: normal color, warm, dry, No rash Lymphatic Exam: No adenopathy SpO2: 97 - Course Nursing assessment & vital signs reviewed: Yes EKG Interpreted by Me: RATE ([id number]), Sinus Rhythm, Left [place] Deviation, NORMAL INTERVALS, NORMAL QRS, Non-specific ST Changes - Radiology Exams Chest X-ray Interpretation: Negative Ordered Tests: Active Orders 24 hr Category Date Time Status EKG-ER Only STAT Care 06/16/20 17:09 Active IV Insertion STAT Care 06/16/20 17:09 Active CHEST 1 VIEW (PORTABLE) Stat Exams 06/16/20 17:11 Taken BLOOD CULTURE Stat Lab 06/16/20 17:35 Received CBC W DIFF Stat Lab 06/16/20 17:09 Completed CMP Stat Lab 06/16/20 17:00 Completed INFLUENZA A+B NELLY Stat Lab 06/16/20 17:35 Completed Lactic Acid Stat Lab 06/16/20 17:09 Completed NT PRO BNP Stat Lab 06/16/20 17:00 Completed PROCALCITONIN Stat Lab 06/16/20 17:00 Completed PROTIME WITH INR Stat Lab 06/16/20 17:00 Completed TROPONIN Q3H Lab 06/16/20 17:15 Completed TROPONIN Q3H Lab 06/16/20 20:15 Ordered TROPONIN Q3H Lab 06/16/20 23:15 Ordered UA W/RFX UR CULTURE Stat Lab 06/16/20 17:20 Completed Respiratory Therapy Assessment DAILY RT 06/16/20 17:43 Completed Medication Summary Generic Name Dose Route Start Last Admin Trade Name Freq PRN Reason Stop Dose Admin Sodium Chloride 1,000 mls @ 100 mls/hr 06/16/20 17:15 Sodium Chloride 0.9% 1000 Ml IV 07/16/20 17:14 .Q10H OMAR Ceftriaxone Sodium/Dextrose 1 g in 50 mls @ 100 mls/hr 06/16/20 18:54 Rocephin 1 Gm-D5w 50 Ml Bag IV 06/16/20 19:23 STAT STA Discontinued Medications Generic Name Dose Route Start Last Admin Trade Name Freq PRN Reason Stop Dose Admin Albuterol Sulfate 4 puff 06/16/20 17:46 06/16/20 17:46 Ventolin Common Canister IH 06/16/20 17:47 4 puff ONCE ONE Administration Albuterol/Ipratropium 3 ml 06/16/20 17:09 Duoneb 0.5-3 Mg/3 Ml Neb IH 06/16/20 17:10 STAT ONE Fentanyl Citrate 50 mcg 06/16/20 17:09 06/16/20 17:40 Sublimaze 100 Mcg/2 Ml IV 06/16/20 17:10 50 mcg STAT ONE Administration Fentanyl Citrate Confirm 06/16/20 17:35 Sublimaze 100 Mcg/2 Ml Administered 06/16/20 17:36 Dose 100 mcg .ROUTE .STK-MED ONE Ondansetron HCl 4 mg 06/16/20 17:09 06/16/20 17:40 Zofran 4 Mg/2 Ml Vial IV 06/16/20 17:10 4 mg STAT ONE Administration Ondansetron HCl Confirm 06/16/20 17:35 Zofran 4 Mg/2 Ml Vial Administered 06/16/20 17:36 Dose 4 mg .ROUTE .STK-MED ONE Lab/Rad Data: Laboratory Result Diagrams 06/16/20 17:09 06/16/20 17:00 Laboratory Results 06/16/20 06/16/20 06/16/20 Range/Units 17:35 17:35 17:20 WBC (4.0-10.5) K/mm3 RBC (4.1-5.4) M/mm3 Hgb (12.0-16.0) gm/dl Hct (35-47) % MCV (78-100) fl MCH (26-32) pg MCHC (32-36) g/dl RDW (11.5-14.0) % Plt Count (150-450) K/mm3 MPV (7.5-11.0) fl Gran % (36.0-66.0) % Eos # (Auto) (0-0.5) Absolute Lymphs (auto) (1.0-4.6) Absolute Monos (auto) (0.0-1.3) Lymphocytes % (24.0-44.0) % Monocytes % (0.0-12.0) % Eosinophils % (0.00-5.0) % Basophils % (0.0-0.4) % Absolute Granulocytes (1.4-6.9) Basophils # (0-0.4) PT (9.95-12.35) SECONDS INR (0.8-3.0) Sodium (137-145) mmol/L Potassium (3.5-5.1) mmol/L Chloride (98-107) mmol/L Carbon Dioxide (22-30) mmol/L Anion Gap (5-15) MEQ/L BUN (7-17) mg/dL Creatinine (0.52-1.04) mg/dL Estimated GFR ML/MIN Glucose (74-106) mg/dL Lactic Acid (0.4-2.0) Calcium (8.4-10.2) mg/dL Total Bilirubin (0.2-1.3) mg/dL AST (14-36) U/L ALT (0-35) U/L Alkaline Phosphatase (38-126) U/L Troponin I (0.000-0.034) ng/mL NT-Pro-B Natriuret Pep (0-450) pg/mL Serum Total Protein (6.3-8.2) g/dL Albumin (3.5-5.0) g/dL Procalcitonin (0.030-0.080) ng/mL Urine Color YELLOW (YELLOW) Urine Appearance CLEAR (CLEAR) Urine pH 5.0 (5-6) Ur Specific [place] 1.013 (1.005-1.025) Urine Protein NEGATIVE (Negative) Urine Ketones NEGATIVE (NEGATIVE) Urine Blood NEGATIVE (0-5) Ed/ul Urine Nitrite NEGATIVE (NEGATIVE) Urine Bilirubin NEGATIVE (NEGATIVE) Urine Urobilinogen NEGATIVE (0-1) mg/dL Ur Leukocyte Esterase NEGATIVE (NEGATIVE) Urine WBC (Auto) 0-2 (0-5) /HPF Urine RBC (Auto) NONE (0-2) /HPF U Epithel Cells (Auto) RARE (FEW) /HPF Urine Bacteria (Auto) NONE (NEGATIVE) /HPF Urine Culture Reflexed NO (NO) Urine Glucose NEGATIVE (NEGATIVE) mg/dL Influenza Type A Ag NEGATIVE (NEGATIVE) Influenza Type B Ag NEGATIVE (NEGATIVE) SARS-CoV-2 (PCR) NEGATIVE (NEGATIVE) 06/16/20 06/16/20 06/16/20 Range/Units 17:15 17:09 17:09 WBC 12.4 H (4.0-10.5) K/mm3 RBC 4.41 (4.1-5.4) M/mm3 Hgb 14.0 (12.0-16.0) gm/dl Hct 43.9 (35-47) % MCV 99.5 (78-100) fl MCH 31.7 (26-32) pg MCHC 31.9 L (32-36) g/dl RDW 14.3 H (11.5-14.0) % Plt Count 489 H (150-450) K/mm3 MPV 8.5 (7.5-11.0) fl Gran % 67.2 H (36.0-66.0) % Eos # (Auto) 0.82 H (0-0.5) Absolute Lymphs (auto) 2.15 (1.0-4.6) Absolute Monos (auto) 1.07 (0.0-1.3) Lymphocytes % 17.4 L (24.0-44.0) % Monocytes % 8.7 (0.0-12.0) % Eosinophils % 6.6 H (0.00-5.0) % Basophils % 0.1 (0.0-0.4) % Absolute Granulocytes 8.31 H (1.4-6.9) Basophils # 0.01 (0-0.4) PT (9.95-12.35) SECONDS INR (0.8-3.0) Sodium (137-145) mmol/L Potassium (3.5-5.1) mmol/L Chloride (98-107) mmol/L Carbon Dioxide (22-30) mmol/L Anion Gap (5-15) MEQ/L BUN (7-17) mg/dL Creatinine (0.52-1.04) mg/dL Estimated GFR ML/MIN Glucose (74-106) mg/dL Lactic Acid 1.3 (0.4-2.0) Calcium (8.4-10.2) mg/dL Total Bilirubin (0.2-1.3) mg/dL AST (14-36) U/L ALT (0-35) U/L Alkaline Phosphatase (38-126) U/L Troponin I < 0.012 (0.000-0.034) ng/mL NT-Pro-B Natriuret Pep (0-450) pg/mL Serum Total Protein (6.3-8.2) g/dL Albumin (3.5-5.0) g/dL Procalcitonin (0.030-0.080) ng/mL Urine Color (YELLOW) Urine Appearance (CLEAR) Urine pH (5-6) Ur Specific [place] (1.005-1.025) Urine Protein (Negative) Urine Ketones (NEGATIVE) Urine Blood (0-5) Ed/ul Urine Nitrite (NEGATIVE) Urine Bilirubin (NEGATIVE) Urine Urobilinogen (0-1) mg/dL Ur Leukocyte Esterase (NEGATIVE) Urine WBC (Auto) (0-5) /HPF Urine RBC (Auto) (0-2) /HPF U Epithel Cells (Auto) (FEW) /HPF Urine Bacteria (Auto) (NEGATIVE) /HPF Urine Culture Reflexed (NO) Urine Glucose (NEGATIVE) mg/dL Influenza Type A Ag (NEGATIVE) Influenza Type B Ag (NEGATIVE) SARS-CoV-2 (PCR) (NEGATIVE) 06/16/20 06/16/20 06/16/20 Range/Units 17:00 17:00 17:00 WBC (4.0-10.5) K/mm3 RBC (4.1-5.4) M/mm3 Hgb (12.0-16.0) gm/dl Hct (35-47) % MCV (78-100) fl MCH (26-32) pg MCHC (32-36) g/dl RDW (11.5-14.0) % Plt Count (150-450) K/mm3 MPV (7.5-11.0) fl Gran % (36.0-66.0) % Eos # (Auto) (0-0.5) Absolute Lymphs (auto) (1.0-4.6) Absolute Monos (auto) (0.0-1.3) Lymphocytes % (24.0-44.0) % Monocytes % (0.0-12.0) % Eosinophils % (0.00-5.0) % Basophils % (0.0-0.4) % Absolute Granulocytes (1.4-6.9) Basophils # (0-0.4) PT 12.2 (9.95-12.35) SECONDS INR 1.08 (0.8-3.0) Sodium 135 L (137-145) mmol/L Potassium 4.6 (3.5-5.1) mmol/L Chloride 100 (98-107) mmol/L Carbon Dioxide 25 (22-30) mmol/L Anion Gap 14.4 (5-15) MEQ/L BUN 14 (7-17) mg/dL Creatinine 0.54 (0.52-1.04) mg/dL Estimated GFR > 60.0 ML/MIN Glucose 124 H (74-106) mg/dL Lactic Acid (0.4-2.0) Calcium 9.4 (8.4-10.2) mg/dL Total Bilirubin 0.40 (0.2-1.3) mg/dL AST 33 (14-36) U/L ALT 36 H (0-35) U/L Alkaline Phosphatase 110 (38-126) U/L Troponin I (0.000-0.034) ng/mL NT-Pro-B Natriuret Pep 42.8 (0-450) pg/mL Serum Total Protein 8.1 (6.3-8.2) g/dL Albumin 4.5 (3.5-5.0) g/dL Procalcitonin 0.055 (0.030-0.080) ng/mL Urine Color (YELLOW) Urine Appearance (CLEAR) Urine pH (5-6) Ur Specific [place] (1.005-1.025) Urine Protein (Negative) Urine Ketones (NEGATIVE) Urine Blood (0-5) Ed/ul Urine Nitrite (NEGATIVE) Urine Bilirubin (NEGATIVE) Urine Urobilinogen (0-1) mg/dL Ur Leukocyte Esterase (NEGATIVE) Urine WBC (Auto) (0-5) /HPF Urine RBC (Auto) (0-2) /HPF U Epithel Cells (Auto) (FEW) /HPF Urine Bacteria (Auto) (NEGATIVE) /HPF Urine Culture Reflexed (NO) Urine Glucose (NEGATIVE) mg/dL Influenza Type A Ag (NEGATIVE) Influenza Type B Ag (NEGATIVE) SARS-CoV-2 (PCR) (NEGATIVE) - Progress Progress: unchanged Air Movement: fair Blood Culture(s) Obtained: Yes Antibiotics given: Yes - Departure Departure Disposition: Observation Clinical Impression: COPD exacerbation Condition: Fair Critical Care Time: No Referrals: GASTON CAMPUZANO [Primary Care Provider] - Instructions: Chronic Obstructive Pulmonary Disease
[2020-06-16] MEDS ORDERED: ROCEPHIN 1 Gm-D5w 50 ml Bag** 1 G/50 ML IVPB IV ONE (19:08)
--- NOTE | 2020-06-16 19:23 | XRAY ---
Indication: Cough one week. Comparison: April 15, 2020. Portable chest again demonstrates normal heart and lungs. Bony thorax intact with minimal dextroscoliosis. No new/acute findings.
[2020-06-16] MEDS ORDERED: Zithromax 500 MG/ 250 ML NaCl Premix 500 MG/250 ML IVPB IV ONE (21:16)
[2020-06-16] MEDS ORDERED: Decadron 4 MG INJ ONE (21:16)
[2020-06-16] MEDS ORDERED: TYLENOL EXTRA STRENGTH 500 MG PO PRN (21:54)
[2020-06-16] MEDS ORDERED: MOTRIN 400 MG PO PRN (21:55)
[2020-06-16] MEDS ORDERED: DECADRON 10MG INJ. IV SCH (22:00)
[2020-06-16] MEDS ORDERED: Neurontin 400 MG PO SCH (22:00)
[2020-06-16] MEDS: NEURONTIN 300 MG PO SCH (22:28)
[2020-06-16] MEDS ORDERED: PROVENTIL 2.5 MG/3 ML NEB IH PRN (23:06)
[2020-06-17] MEDS ORDERED: solu-MEDROL 125 MG IV SCH
[2020-06-17 06:24] LABS: Hematocrit 38.9 % (35-47); Mean Cell Volume 101.6 fl (78-100); Mean Corpuscular Hemoglobin 31.3 pg (26-32); Mean Corpuscular Hgb Concent. 30.8 g/dl (32-36); Mean Platelet Volume 8.8 fl (7.5-11.0); Platelet Count 410 K/mm3 (150-450); Red Blood Count 3.83 M/mm3 (4.1-5.4); Red Cell Distribution Width 14.2 % (11.5-14.0)
[2020-06-17 06:48] LABS: ALBUMIN 3.7 g/dL (3.5-5.0); ALKALINE PHOSPHATASE 98 U/L (38-126); ANION GAP 9.7 MEQ/L (5-15); BLOOD UREA NITROGEN 20 mg/dL (7-17); CHLORIDE 107 mmol/L (98-107); Carbon Dioxide 26 mmol/L (22-30); Creatinine 1 0.72 mg/dL (0.52-1.04); EST GLOMERULAR FILTRATION RATE > 60.0 ML/MIN; Glucose 128 mg/dL (74-106); Potassium 5.3 mmol/L (3.5-5.1); SGOT/AST 24 U/L (14-36); SGPT/ALT 29 U/L (0-35); SODIUM 137 mmol/L (137-145); Total Protein 6.9 g/dL (6.3-8.2)
[2020-06-17 07:02] VITALS: BP 100/59
[2020-06-17 07:21] VITALS: PULSE 57; O2SAT 93
[2020-06-17] MEDS ORDERED: ROCEPHIN 1 Gm-D5w 50 ml Bag** 1 G/50 ML IVPB IV SCH (10:00)
[2020-06-17] MEDS: NEURONTIN 300 MG PO SCH (10:26)
--- NOTE | 2020-06-17 14:25 | PCM.SSS ---
History of Present Illness - Chief Complaint Chief Complaint: shortness of breath for 2 days History of Present Illness: is a 45 year old female with longstanding COPD who presents with a cough for well over a week she has been treated with cefdinir prednisone and albuterol as an outpatient without benefit. She says she had a fever to 102 last night and feels like this is either bronchitis or pneumonia or exacerbation of her COPD she has been sick for 1 month on and off. Timing/Duration: week(s) (4) Cough Quality/Degree: severe, productive cough Possible Cause: occasional episodes, chronic episodes Modifying Factors: Improves With: albuterol nebulizer, coughing Associated Symptoms: fever, chills, cough, shortness of breath, wheezing - Review of Systems Constitutional: No Fever, No Chills Eyes: No Symptoms Ears, Nose, & Throat: No Symptoms Respiratory: Cough, Short Of Breath Cardiac: No Chest Pain, No Edema, No Syncope Abdominal/Gastrointestinal: No Abdominal Pain, No Nausea, No Vomiting, No Diarrhea Genitourinary Symptoms: No Dysuria Musculoskeletal: No Back Pain, No Neck Pain Skin: No Rash Neurological: No Dizziness, No Focal Weakness, No Sensory Changes Psychological: No Symptoms Endocrine: No Symptoms Hematologic/Lymphatic: No Symptoms Immunological/Allergic: No Symptoms Medications & Allergies Home Medications: Home Medication List Gabapentin 600 mg PO QID 06/14/19 [History Confirmed 06/16/20] Allergies/Adverse Reactions: Allergies Allergy/AdvReac Type Severity Reaction Status Date / Time Sulfa (Sulfonamide Allergy Intermediate Vomiting Verified 06/16/20 21:33 Antibiotics) bee venom protein (honey bee) Allergy Verified 06/16/20 21:33 methylprednisolone Allergy Verified 06/16/20 21:33 [From Solu-Medrol] sumatriptan [From Imitrex] Allergy Verified 06/16/20 21:33 ketorolac [From Toradol] AdvReac Nausea Verified 06/16/20 21:33 nitrofurantoin AdvReac Verified 06/16/20 21:33 [From Macrobid] tramadol AdvReac Nausea Verified 06/16/20 21:33 - Past Medical History Past Medical History: Yes Neurological History: Migraines ENT History: No Pertinent History Cardiac History: No Pertinent History Respiratory History: No Pertinent History Endocrine Medical History: No Pertinent History Musculoskelatal History: Arthritis GI Medical History: Gallbladder Disease History: Other Pyscho-Social History: Bipolar Reproductive Disorders: Other - Female History Are you now?: No - Past Surgical History Past Surgical History: Yes Neuro Surgical History: No Pertinent History Cardiac History: No Pertinent History Respiratory Surgery: No Pertinent History GI Surgical History: Cholecystectomy, Hernia Repair Genitourinary Surgical Hx: Kidney Surgery Musculskeletal Surgical Hx: No Pertinent History Female Surgical History: Hysterectomy Other Surgical History: skin cancer removed twice, hernia removal - Social History Smoking Status: Current every day smoker How long have you smoked: years Exposure to second hand smoke: Yes Alcohol: None Drug Use: none - Physical Exam Vital Signs: Vital Signs - 24 hr Temp Pulse Resp BP Pulse Ox 06/17/20 07:19 57 L 18 93 L 06/17/20 07:02 97.4 F 52 L 16 100/59 94 L 06/17/20 04:00 97.6 F 65 18 102/61 94 L 06/17/20 00:00 98.3 F 71 20 100/59 91 L 06/16/20 22:54 97.6 F 76 18 106/60 91 L 06/16/20 22:16 92 H 20 96 06/16/20 21:15 97.6 F 76 18 106/60 91 L 06/16/20 19:03 97 06/16/20 19:00 77 14 107/71 95 06/16/20 18:00 85 20 120/71 92 L 06/16/20 17:44 96 H 20 97 06/16/20 16:41 98.2 F 96 H 22 147/93 97 General Appearance: no apparent distress, alert Neurologic Exam: alert, oriented x 3, cooperative, normal mood/affect, nml cerebellar function, nml station & gait, sensation nml, No motor deficits Eye Exam: PERRL/EOMI, eyes nml inspection Ears, Nose, Throat Exam: normal ENT inspection, TMs normal, pharynx normal, moist mucous membranes Neck Exam: normal inspection, non-tender, supple, full range of motion Respiratory Exam: normal breath sounds, lungs clear, No respiratory distress Cardiovascular Exam: regular rate/rhythm, normal heart sounds, normal peripheral pulses Gastrointestinal/Abdomen Exam: soft, normal bowel sounds, No tenderness, No mass Back Exam: normal inspection, normal range of motion, No CVA tenderness, No vertebral tenderness Extremity Exam: normal inspection, normal range of motion, pelvis stable Skin Exam: normal color, warm, dry, No rash Lymphatic Exam: No adenopathy Results - Labs Lab/Micro Results: Lab Results-Last 24 Hours 06/16/20 06/16/20 06/16/20 Range/Units 17:00 17:00 17:00 WBC (4.0-10.5) K/mm3 RBC (4.1-5.4) M/mm3 Hgb (12.0-16.0) gm/dl Hct (35-47) % MCV (78-100) fl MCH (26-32) pg MCHC (32-36) g/dl RDW (11.5-14.0) % Plt Count (150-450) K/mm3 MPV (7.5-11.0) fl Gran % (36.0-66.0) % Eos # (Auto) (0-0.5) Absolute Lymphs (auto) (1.0-4.6) Absolute Monos (auto) (0.0-1.3) Lymphocytes % (24.0-44.0) % Monocytes % (0.0-12.0) % Eosinophils % (0.00-5.0) % Basophils % (0.0-0.4) % Absolute Granulocytes (1.4-6.9) Basophils # (0-0.4) PT 12.2 (9.95-12.35) SECONDS INR 1.08 (0.8-3.0) Sodium 135 L (137-145) mmol/L Potassium 4.6 (3.5-5.1) mmol/L Chloride 100 (98-107) mmol/L Carbon Dioxide 25 (22-30) mmol/L Anion Gap 14.4 (5-15) MEQ/L BUN 14 (7-17) mg/dL Creatinine 0.54 (0.52-1.04) mg/dL Estimated GFR > 60.0 ML/MIN Glucose 124 H (74-106) mg/dL Lactic Acid (0.4-2.0) Calcium 9.4 (8.4-10.2) mg/dL Total Bilirubin 0.40 (0.2-1.3) mg/dL AST 33 (14-36) U/L ALT 36 H (0-35) U/L Alkaline Phosphatase 110 (38-126) U/L Troponin I (0.000-0.034) ng/mL NT-Pro-B Natriuret Pep 42.8 (0-450) pg/mL Serum Total Protein 8.1 (6.3-8.2) g/dL Albumin 4.5 (3.5-5.0) g/dL Procalcitonin 0.055 (0.030-0.080) ng/mL Urine Color (YELLOW) Urine Appearance (CLEAR) Urine pH (5-6) Ur Specific [place] (1.005-1.025) Urine Protein (Negative) Urine Ketones (NEGATIVE) Urine Blood (0-5) Ed/ul Urine Nitrite (NEGATIVE) Urine Bilirubin (NEGATIVE) Urine Urobilinogen (0-1) mg/dL Ur Leukocyte Esterase (NEGATIVE) Urine WBC (Auto) (0-5) /HPF Urine RBC (Auto) (0-2) /HPF U Epithel Cells (Auto) (FEW) /HPF Urine Bacteria (Auto) (NEGATIVE) /HPF Urine Culture Reflexed (NO) Urine Glucose (NEGATIVE) mg/dL Influenza Type A Ag (NEGATIVE) Influenza Type B Ag (NEGATIVE) SARS-CoV-2 (PCR) (NEGATIVE) 06/16/20 06/16/20 06/16/20 Range/Units 17:09 17:09 17:15 WBC 12.4 H (4.0-10.5) K/mm3 RBC 4.41 (4.1-5.4) M/mm3 Hgb 14.0 (12.0-16.0) gm/dl Hct 43.9 (35-47) % MCV 99.5 (78-100) fl MCH 31.7 (26-32) pg MCHC 31.9 L (32-36) g/dl RDW 14.3 H (11.5-14.0) % Plt Count 489 H (150-450) K/mm3 MPV 8.5 (7.5-11.0) fl Gran % 67.2 H (36.0-66.0) % Eos # (Auto) 0.82 H (0-0.5) Absolute Lymphs (auto) 2.15 (1.0-4.6) Absolute Monos (auto) 1.07 (0.0-1.3) Lymphocytes % 17.4 L (24.0-44.0) % Monocytes % 8.7 (0.0-12.0) % Eosinophils % 6.6 H (0.00-5.0) % Basophils % 0.1 (0.0-0.4) % Absolute Granulocytes 8.31 H (1.4-6.9) Basophils # 0.01 (0-0.4) PT (9.95-12.35) SECONDS INR (0.8-3.0) Sodium (137-145) mmol/L Potassium (3.5-5.1) mmol/L Chloride (98-107) mmol/L Carbon Dioxide (22-30) mmol/L Anion Gap (5-15) MEQ/L BUN (7-17) mg/dL Creatinine (0.52-1.04) mg/dL Estimated GFR ML/MIN Glucose (74-106) mg/dL Lactic Acid 1.3 (0.4-2.0) Calcium (8.4-10.2) mg/dL Total Bilirubin (0.2-1.3) mg/dL AST (14-36) U/L ALT (0-35) U/L Alkaline Phosphatase (38-126) U/L Troponin I < 0.012 (0.000-0.034) ng/mL NT-Pro-B Natriuret Pep (0-450) pg/mL Serum Total Protein (6.3-8.2) g/dL Albumin (3.5-5.0) g/dL Procalcitonin (0.030-0.080) ng/mL Urine Color (YELLOW) Urine Appearance (CLEAR) Urine pH (5-6) Ur Specific [place] (1.005-1.025) Urine Protein (Negative) Urine Ketones (NEGATIVE) Urine Blood (0-5) Ed/ul Urine Nitrite (NEGATIVE) Urine Bilirubin (NEGATIVE) Urine Urobilinogen (0-1) mg/dL Ur Leukocyte Esterase (NEGATIVE) Urine WBC (Auto) (0-5) /HPF Urine RBC (Auto) (0-2) /HPF U Epithel Cells (Auto) (FEW) /HPF Urine Bacteria (Auto) (NEGATIVE) /HPF Urine Culture Reflexed (NO) Urine Glucose (NEGATIVE) mg/dL Influenza Type A Ag (NEGATIVE) Influenza Type B Ag (NEGATIVE) SARS-CoV-2 (PCR) (NEGATIVE) 06/16/20 06/16/20 06/16/20 Range/Units 17:20 17:35 17:35 WBC (4.0-10.5) K/mm3 RBC (4.1-5.4) M/mm3 Hgb (12.0-16.0) gm/dl Hct (35-47) % MCV (78-100) fl MCH (26-32) pg MCHC (32-36) g/dl RDW (11.5-14.0) % Plt Count (150-450) K/mm3 MPV (7.5-11.0) fl Gran % (36.0-66.0) % Eos # (Auto) (0-0.5) Absolute Lymphs (auto) (1.0-4.6) Absolute Monos (auto) (0.0-1.3) Lymphocytes % (24.0-44.0) % Monocytes % (0.0-12.0) % Eosinophils % (0.00-5.0) % Basophils % (0.0-0.4) % Absolute Granulocytes (1.4-6.9) Basophils # (0-0.4) PT (9.95-12.35) SECONDS INR (0.8-3.0) Sodium (137-145) mmol/L Potassium (3.5-5.1) mmol/L Chloride (98-107) mmol/L Carbon Dioxide (22-30) mmol/L Anion Gap (5-15) MEQ/L BUN (7-17) mg/dL Creatinine (0.52-1.04) mg/dL Estimated GFR ML/MIN Glucose (74-106) mg/dL Lactic Acid (0.4-2.0) Calcium (8.4-10.2) mg/dL Total Bilirubin (0.2-1.3) mg/dL AST (14-36) U/L ALT (0-35) U/L Alkaline Phosphatase (38-126) U/L Troponin I (0.000-0.034) ng/mL NT-Pro-B Natriuret Pep (0-450) pg/mL Serum Total Protein (6.3-8.2) g/dL Albumin (3.5-5.0) g/dL Procalcitonin (0.030-0.080) ng/mL Urine Color YELLOW (YELLOW) Urine Appearance CLEAR (CLEAR) Urine pH 5.0 (5-6) Ur Specific [place] 1.013 (1.005-1.025) Urine Protein NEGATIVE (Negative) Urine Ketones NEGATIVE (NEGATIVE) Urine Blood NEGATIVE (0-5) Ed/ul Urine Nitrite NEGATIVE (NEGATIVE) Urine Bilirubin NEGATIVE (NEGATIVE) Urine Urobilinogen NEGATIVE (0-1) mg/dL Ur Leukocyte Esterase NEGATIVE (NEGATIVE) Urine WBC (Auto) 0-2 (0-5) /HPF Urine RBC (Auto) NONE (0-2) /HPF U Epithel Cells (Auto) RARE (FEW) /HPF Urine Bacteria (Auto) NONE (NEGATIVE) /HPF Urine Culture Reflexed NO (NO) Urine Glucose NEGATIVE (NEGATIVE) mg/dL Influenza Type A Ag NEGATIVE (NEGATIVE) Influenza Type B Ag NEGATIVE (NEGATIVE) SARS-CoV-2 (PCR) NEGATIVE (NEGATIVE) 06/16/20 06/16/20 06/17/20 Range/Units 20:30 23:30 05:30 WBC 5.0 (4.0-10.5) K/mm3 RBC 3.83 L (4.1-5.4) M/mm3 Hgb 12.0 (12.0-16.0) gm/dl Hct 38.9 (35-47) % MCV 101.6 H (78-100) fl MCH 31.3 (26-32) pg MCHC 30.8 L (32-36) g/dl RDW 14.2 H (11.5-14.0) % Plt Count 410 (150-450) K/mm3 MPV 8.8 (7.5-11.0) fl Gran % (36.0-66.0) % Eos # (Auto) (0-0.5) Absolute Lymphs (auto) (1.0-4.6) Absolute Monos (auto) (0.0-1.3) Lymphocytes % (24.0-44.0) % Monocytes % (0.0-12.0) % Eosinophils % (0.00-5.0) % Basophils % (0.0-0.4) % Absolute Granulocytes (1.4-6.9) Basophils # (0-0.4) PT (9.95-12.35) SECONDS INR (0.8-3.0) Sodium (137-145) mmol/L Potassium (3.5-5.1) mmol/L Chloride (98-107) mmol/L Carbon Dioxide (22-30) mmol/L Anion Gap (5-15) MEQ/L BUN (7-17) mg/dL Creatinine (0.52-1.04) mg/dL Estimated GFR ML/MIN Glucose (74-106) mg/dL Lactic Acid (0.4-2.0) Calcium (8.4-10.2) mg/dL Total Bilirubin (0.2-1.3) mg/dL AST (14-36) U/L ALT (0-35) U/L Alkaline Phosphatase (38-126) U/L Troponin I < 0.012 < 0.012 (0.000-0.034) ng/mL NT-Pro-B Natriuret Pep (0-450) pg/mL Serum Total Protein (6.3-8.2) g/dL Albumin (3.5-5.0) g/dL Procalcitonin (0.030-0.080) ng/mL Urine Color (YELLOW) Urine Appearance (CLEAR) Urine pH (5-6) Ur Specific [place] (1.005-1.025) Urine Protein (Negative) Urine Ketones (NEGATIVE) Urine Blood (0-5) Ed/ul Urine Nitrite (NEGATIVE) Urine Bilirubin (NEGATIVE) Urine Urobilinogen (0-1) mg/dL Ur Leukocyte Esterase (NEGATIVE) Urine WBC (Auto) (0-5) /HPF Urine RBC (Auto) (0-2) /HPF U Epithel Cells (Auto) (FEW) /HPF Urine Bacteria (Auto) (NEGATIVE) /HPF Urine Culture Reflexed (NO) Urine Glucose (NEGATIVE) mg/dL Influenza Type A Ag (NEGATIVE) Influenza Type B Ag (NEGATIVE) SARS-CoV-2 (PCR) (NEGATIVE) 06/17/20 Range/Units 05:30 WBC (4.0-10.5) K/mm3 RBC (4.1-5.4) M/mm3 Hgb (12.0-16.0) gm/dl Hct (35-47) % MCV (78-100) fl MCH (26-32) pg MCHC (32-36) g/dl RDW (11.5-14.0) % Plt Count (150-450) K/mm3 MPV (7.5-11.0) fl Gran % (36.0-66.0) % Eos # (Auto) (0-0.5) Absolute Lymphs (auto) (1.0-4.6) Absolute Monos (auto) (0.0-1.3) Lymphocytes % (24.0-44.0) % Monocytes % (0.0-12.0) % Eosinophils % (0.00-5.0) % Basophils % (0.0-0.4) % Absolute Granulocytes (1.4-6.9) Basophils # (0-0.4) PT (9.95-12.35) SECONDS INR (0.8-3.0) Sodium 137 (137-145) mmol/L Potassium 5.3 H (3.5-5.1) mmol/L Chloride 107 (98-107) mmol/L Carbon Dioxide 26 (22-30) mmol/L Anion Gap 9.7 (5-15) MEQ/L BUN 20 H (7-17) mg/dL Creatinine 0.72 (0.52-1.04) mg/dL Estimated GFR > 60.0 ML/MIN Glucose 128 H (74-106) mg/dL Lactic Acid (0.4-2.0) Calcium 9.0 (8.4-10.2) mg/dL Total Bilirubin 0.30 (0.2-1.3) mg/dL AST 24 (14-36) U/L ALT 29 (0-35) U/L Alkaline Phosphatase 98 (38-126) U/L Troponin I (0.000-0.034) ng/mL NT-Pro-B Natriuret Pep (0-450) pg/mL Serum Total Protein 6.9 (6.3-8.2) g/dL Albumin 3.7 (3.5-5.0) g/dL Procalcitonin (0.030-0.080) ng/mL Urine Color (YELLOW) Urine Appearance (CLEAR) Urine pH (5-6) Ur Specific [place] (1.005-1.025) Urine Protein (Negative) Urine Ketones (NEGATIVE) Urine Blood (0-5) Ed/ul Urine Nitrite (NEGATIVE) Urine Bilirubin (NEGATIVE) Urine Urobilinogen (0-1) mg/dL Ur Leukocyte Esterase (NEGATIVE) Urine WBC (Auto) (0-5) /HPF Urine RBC (Auto) (0-2) /HPF U Epithel Cells (Auto) (FEW) /HPF Urine Bacteria (Auto) (NEGATIVE) /HPF Urine Culture Reflexed (NO) Urine Glucose (NEGATIVE) mg/dL Influenza Type A Ag (NEGATIVE) Influenza Type B Ag (NEGATIVE) SARS-CoV-2 (PCR) (NEGATIVE) - Radiology Impressions Radiology Exams & Impressions: Radiology Procedures Category Date Time Status CHEST 1 VIEW (PORTABLE) Stat Exams 06/16/20 17:11 Completed - Other Procedures and Tests Respiratory Therapy 06/17/20 07:00 Respiratory Therapy Assessment DAILY Assessment/Plan (1) COPD exacerbation Status: Acute Assessment & Plan: Chief Complaint Diagnosis COPD exacerbation Allergies Allergy/AdvReac Type Severity Reaction Status Date / Time Sulfa (Sulfonamide Allergy Intermediate Vomiting Verified 06/16/20 21:33 Antibiotics) bee venom protein (honey bee) Allergy Verified 06/16/20 21:33 methylprednisolone Allergy Verified 06/16/20 21:33 [From Solu-Medrol] sumatriptan [From Imitrex] Allergy Verified 06/16/20 21:33 ketorolac [From Toradol] AdvReac Nausea Verified 06/16/20 21:33 nitrofurantoin AdvReac Verified 06/16/20 21:33 [From Macrobid] tramadol AdvReac Nausea Verified 06/16/20 21:33 Vital Signs (Last 24 hours) Temp Pulse Resp BP Pulse Ox 06/17/20 07:19 57 L 18 93 L 06/17/20 07:02 97.4 F 52 L 16 100/59 94 L 06/17/20 04:00 97.6 F 65 18 102/61 94 L 06/17/20 00:00 98.3 F 71 20 100/59 91 L 06/16/20 22:54 97.6 F 76 18 106/60 91 L 06/16/20 22:16 92 H 20 96 06/16/20 21:15 97.6 F 76 18 106/60 91 L 06/16/20 19:03 97 06/16/20 19:00 77 14 107/71 95 06/16/20 18:00 85 20 120/71 92 L 06/16/20 17:44 96 H 20 97 06/16/20 16:41 98.2 F 96 H 22 147/93 97 Current Medications Discontinued Medications Generic Name Dose Route Start Last Admin Trade Name Freq PRN Reason Stop Dose Admin Acetaminophen 500 mg 06/16/20 21:54 06/16/20 22:28 Tylenol Extra Strength 500 Mg PO 07/16/20 21:53 500 mg Q4H PRN PRN Administration PAIN Albuterol Sulfate 4 puff 06/16/20 17:46 06/16/20 17:46 Ventolin Common Canister IH 06/16/20 17:47 4 puff ONCE ONE Administration Albuterol Sulfate 2.5 mg 06/16/20 23:06 Proventil 2.5 Mg/3 Ml Neb IH 07/16/20 23:05 Q4H PRN PRN SHORTNESS OF BREATH/WHEEZING Albuterol/Ipratropium 3 ml 06/16/20 17:09 06/16/20 21:50 Duoneb 0.5-3 Mg/3 Ml Neb IH 06/16/20 17:10 Not Given STAT ONE Dexamethasone Sodium Phosphate 10 mg 06/16/20 22:00 06/16/20 21:25 Decadron 10mg Inj. IV 07/16/20 21:59 10 mg BID OMAR Administration Dexamethasone Sodium Phosphate Confirm 06/16/20 21:16 Decadron 4 Mg Inj Administered 06/16/20 21:17 Dose 12 mg .ROUTE .STK-MED ONE Fentanyl Citrate 50 mcg 06/16/20 17:09 06/16/20 17:40 Sublimaze 100 Mcg/2 Ml IV 06/16/20 17:10 50 mcg STAT ONE Administration Fentanyl Citrate Confirm 06/16/20 17:35 Sublimaze 100 Mcg/2 Ml Administered 06/16/20 17:36 Dose 100 mcg .ROUTE .STK-MED ONE Fentanyl Citrate 50 mcg 06/16/20 19:10 06/16/20 19:13 Sublimaze 100 Mcg/2 Ml IV 06/16/20 19:11 50 mcg STAT ONE Administration Fentanyl Citrate Confirm 06/16/20 19:11 Sublimaze 100 Mcg/2 Ml Administered 06/16/20 19:12 Dose 100 mcg .ROUTE .STK-MED ONE Gabapentin 600 mg 06/16/20 22:15 06/17/20 10:26 Neurontin 300 Mg PO 07/16/20 22:14 600 mg QID OMAR Administration Sodium Chloride 1,000 mls @ 100 mls/hr 06/16/20 17:15 06/16/20 17:50 Sodium Chloride 0.9% 1000 Ml IV 07/16/20 17:14 100 mls/hr .Q10H OMAR Administration Ceftriaxone Sodium/Dextrose 1 g in 50 mls @ 100 mls/hr 06/16/20 18:54 06/16/20 19:08 Rocephin 1 Gm-D5w 50 Ml Bag IV 06/16/20 19:23 100 mls/hr STAT STA 100 mls/hr Administration Sodium Chloride 1,000 mls @ 50 mls/hr 06/16/20 19:15 06/16/20 21:27 Sodium Chloride 0.9% 1000 Ml IV 07/16/20 19:14 50 mls/hr .Q20H OMAR Administration Ceftriaxone Sodium/Dextrose 1 g in 50 mls @ 100 mls/hr 06/17/20 10:00 Rocephin 1 Gm-D5w 50 Ml Bag IV 07/17/20 09:59 Q24H10 OMAR Azithromycin 500 mg in 250 mls @ 250 mls/hr 06/17/20 22:00 06/16/20 21:27 Zithromax 500 Mg/ 250 Ml Nacl Premix IV 07/17/20 21:59 250 mls/hr Q24H22 OMAR Administration Ceftriaxone Sodium/Dextrose Confirm 06/16/20 19:08 Rocephin 1 Gm-D5w 50 Ml Bag Administered 06/16/20 19:09 Dose 1 g in 50 mls @ ud IV .STK-MED ONE Sodium Chloride Confirm 06/16/20 17:36 Sodium Chloride 0.9% 1000 Ml Administered 06/16/20 17:37 Dose 1,000 mls @ ud .ROUTE .STK-MED ONE Sodium Chloride Confirm 06/16/20 21:12 Sodium Chloride 0.9% 1000 Ml Administered 06/16/20 21:13 Dose 1,000 mls @ ud .ROUTE .STK-MED ONE Azithromycin Confirm 06/16/20 21:16 Zithromax 500 Mg/ 250 Ml Nacl Premix Administered 06/16/20 21:17 Dose 500 mg in 250 mls @ ud IV .STK-MED ONE Ibuprofen 400 mg 06/16/20 21:55 06/17/20 04:05 Motrin 400 Mg PO 07/16/20 21:54 400 mg Q4H PRN PRN Administration PAIN Methylprednisolone Sodium Succinate 80 mg 06/17/20 00:00 Solu-Medrol 125 Mg IV 07/17/20 00:00 Q6HT OMAR Ondansetron HCl 4 mg 06/16/20 17:09 06/16/20 17:40 Zofran 4 Mg/2 Ml Vial IV 06/16/20 17:10 4 mg STAT ONE Administration Ondansetron HCl Confirm 06/16/20 17:35 Zofran 4 Mg/2 Ml Vial Administered 06/16/20 17:36 Dose 4 mg .ROUTE .STK-MED ONE Intake & Output (Last 24 hours) 06/15/20 06/16/20 06/17/20 06/18/20 11:59 11:59 11:59 11:59 Intake Total 1427 Output Total 400 Balance 1027 Weight 67.6 kg Microbiology Results (Last 24 hours) 06/16/20 17:35 Blood Blood Culture Gram Stain - Pending 06/16/20 17:35 Blood Blood Culture - Pending 06/16/20 17:30 Blood Blood Culture Gram Stain - Pending 06/16/20 17:30 Blood Blood Culture - Pending Laboratory Results (Last 24 hours) 06/17/20 06/17/20 06/16/20 05:30 05:30 23:30 WBC 5.0 RBC 3.83 L Hgb 12.0 Hct 38.9 MCV 101.6 H MCH 31.3 MCHC 30.8 L RDW 14.2 H Plt Count 410 MPV 8.8 Gran % Eos # (Auto) Absolute Lymphs (auto) Absolute Monos (auto) Lymphocytes % Monocytes % Eosinophils % Basophils % Absolute Granulocytes Basophils # PT INR Sodium 137 Potassium 5.3 H Chloride 107 Carbon Dioxide 26 Anion Gap 9.7 BUN 20 H Creatinine 0.72 Estimated GFR > 60.0 Glucose 128 H Lactic Acid Calcium 9.0 Total Bilirubin 0.30 AST 24 ALT 29 Alkaline Phosphatase 98 Troponin I < 0.012 NT-Pro-B Natriuret Pep Serum Total Protein 6.9 Albumin 3.7 Procalcitonin Urine Color Urine Appearance Urine pH Ur Specific [place] Urine Protein Urine Ketones Urine Blood Urine Nitrite Urine Bilirubin Urine Urobilinogen Ur Leukocyte Esterase Urine WBC (Auto) Urine RBC (Auto) U Epithel Cells (Auto) Urine Bacteria (Auto) Urine Culture Reflexed Urine Glucose Influenza Type A Ag Influenza Type B Ag SARS-CoV-2 (PCR) 06/16/20 06/16/20 06/16/20 20:30 17:35 17:35 WBC RBC Hgb Hct MCV MCH MCHC RDW Plt Count MPV Gran % Eos # (Auto) Absolute Lymphs (auto) Absolute Monos (auto) Lymphocytes % Monocytes % Eosinophils % Basophils % Absolute Granulocytes Basophils # PT INR Sodium Potassium Chloride Carbon Dioxide Anion Gap BUN Creatinine Estimated GFR Glucose Lactic Acid Calcium Total Bilirubin AST ALT Alkaline Phosphatase Troponin I < 0.012 NT-Pro-B Natriuret Pep Serum Total Protein Albumin Procalcitonin Urine Color Urine Appearance Urine pH Ur Specific [place] Urine Protein Urine Ketones Urine Blood Urine Nitrite Urine Bilirubin Urine Urobilinogen Ur Leukocyte Esterase Urine WBC (Auto) Urine RBC (Auto) U Epithel Cells (Auto) Urine Bacteria (Auto) Urine Culture Reflexed Urine Glucose Influenza Type A Ag NEGATIVE Influenza Type B Ag NEGATIVE SARS-CoV-2 (PCR) NEGATIVE 06/16/20 06/16/20 06/16/20 17:20 17:15 17:09 WBC RBC Hgb Hct MCV MCH MCHC RDW Plt Count MPV Gran % Eos # (Auto) Absolute Lymphs (auto) Absolute Monos (auto) Lymphocytes % Monocytes % Eosinophils % Basophils % Absolute Granulocytes Basophils # PT INR Sodium Potassium Chloride Carbon Dioxide Anion Gap BUN Creatinine Estimated GFR Glucose Lactic Acid 1.3 Calcium Total Bilirubin AST ALT Alkaline Phosphatase Troponin I < 0.012 NT-Pro-B Natriuret Pep Serum Total Protein Albumin Procalcitonin Urine Color YELLOW Urine Appearance CLEAR Urine pH 5.0 Ur Specific [place] 1.013 Urine Protein NEGATIVE Urine Ketones NEGATIVE Urine Blood NEGATIVE Urine Nitrite NEGATIVE Urine Bilirubin NEGATIVE Urine Urobilinogen NEGATIVE Ur Leukocyte Esterase NEGATIVE Urine WBC (Auto) 0-2 Urine RBC (Auto) NONE U Epithel Cells (Auto) RARE Urine Bacteria (Auto) NONE Urine Culture Reflexed NO Urine Glucose NEGATIVE Influenza Type A Ag Influenza Type B Ag SARS-CoV-2 (PCR) 06/16/20 06/16/20 06/16/20 17:09 17:00 17:00 WBC 12.4 H RBC 4.41 Hgb 14.0 Hct 43.9 MCV 99.5 MCH 31.7 MCHC 31.9 L RDW 14.3 H Plt Count 489 H MPV 8.5 Gran % 67.2 H Eos # (Auto) 0.82 H Absolute Lymphs (auto) 2.15 Absolute Monos (auto) 1.07 Lymphocytes % 17.4 L Monocytes % 8.7 Eosinophils % 6.6 H Basophils % 0.1 Absolute Granulocytes 8.31 H Basophils # 0.01 PT 12.2 INR 1.08 Sodium Potassium Chloride Carbon Dioxide Anion Gap BUN Creatinine Estimated GFR Glucose Lactic Acid Calcium Total Bilirubin AST ALT Alkaline Phosphatase Troponin I NT-Pro-B Natriuret Pep 42.8 Serum Total Protein Albumin Procalcitonin 0.055 Urine Color Urine Appearance Urine pH Ur Specific [place] Urine Protein Urine Ketones Urine Blood Urine Nitrite Urine Bilirubin Urine Urobilinogen Ur Leukocyte Esterase Urine WBC (Auto) Urine RBC (Auto) U Epithel Cells (Auto) Urine Bacteria (Auto) Urine Culture Reflexed Urine Glucose Influenza Type A Ag Influenza Type B Ag SARS-CoV-2 (PCR) 06/16/20 17:00 WBC RBC Hgb Hct MCV MCH MCHC RDW Plt Count MPV Gran % Eos # (Auto) Absolute Lymphs (auto) Absolute Monos (auto) Lymphocytes % Monocytes % Eosinophils % Basophils % Absolute Granulocytes Basophils # PT INR Sodium 135 L Potassium 4.6 Chloride 100 Carbon Dioxide 25 Anion Gap 14.4 BUN 14 Creatinine 0.54 Estimated GFR > 60.0 Glucose 124 H Lactic Acid Calcium 9.4 Total Bilirubin 0.40 AST 33 ALT 36 H Alkaline Phosphatase 110 Troponin I NT-Pro-B Natriuret Pep Serum Total Protein 8.1 Albumin 4.5 Procalcitonin Urine Color Urine Appearance Urine pH Ur Specific [place] Urine Protein Urine Ketones Urine Blood Urine Nitrite Urine Bilirubin Urine Urobilinogen Ur Leukocyte Esterase Urine WBC (Auto) Urine RBC (Auto) U Epithel Cells (Auto) Urine Bacteria (Auto) Urine Culture Reflexed Urine Glucose Influenza Type A Ag Influenza Type B Ag SARS-CoV-2 (PCR) Orders (Last 24 hours) Category Date Time Status Up Ad [place]ata ROUTINE Activity 06/16/20 19:04 Active EKG-ER Only STAT Care 06/16/20 17:09 Completed IV Insertion STAT Care 06/16/20 17:[address] in Observation ROUTINE Care 06/16/20 19:04 Active Gopal Gibson, Brittany ROUTINE Care 06/16/20 19:04 Active Weight,Daily 0600 Care 06/16/20 19:04 Active House Regular Diet Diet 06/17/20 Breakfast Completed CHEST 1 VIEW (PORTABLE) Stat Exams 06/16/20 17:11 Completed BLOOD CULTURE Stat Lab 06/16/20 17:35 Received CBC AM.LAB Lab 06/17/20 05:30 Completed CBC W DIFF Stat Lab 06/16/20 17:09 Completed CMP AM.LAB Lab 06/17/20 05:30 Completed CMP Stat Lab 06/16/20 17:00 Completed INFLUENZA A+B NELLY Stat Lab 06/16/20 17:35 Completed Lactic Acid Stat Lab 06/16/20 17:09 Completed NT PRO BNP Stat Lab 06/16/20 17:00 Completed PROCALCITONIN Stat Lab 06/16/20 17:00 Completed PROTIME WITH INR Stat Lab 06/16/20 17:00 Completed TROPONIN Q3H Lab 06/16/20 17:15 Completed TROPONIN Q3H Lab 06/16/20 20:30 Completed TROPONIN Q3H Lab 06/16/20 23:30 Completed UA W/RFX UR CULTURE Stat Lab 06/16/20 17:20 Completed Acetaminophen 500 mg [Tylenol Extra Strength 500 mg* Med 06/16/20 21:54 Discontinued ] 500 mg PO Q4H PRN PRN Albuterol 2.5 mg/3 ml Neb [Proventil 2.5 mg/3 ml Neb Med 06/16/20 23:06 Discontinued ] 2.5 mg IH Q4H PRN PRN Albuterol Common Canister [Ventolin Common Canister* Med 06/16/20 17:46 Discontinued ] 4 puff IH ONCE ONE Albuterol/Ipratropium 3ml Neb* [DUONEB 0.5-3 MG/3 ml Med 06/16/20 17:09 Discontinued Neb] 3 ml IH STAT ONE Azithromycin 500 mg/250 ml [Zithromax 500 MG/ 250 ML Med 06/17/20 22:00 Discontinued NaCl Premix] 500 mg in 250 ml IV Q24H22 Azithromycin 500 mg/250 ml [Zithromax 500 MG/ 250 ML Med 06/16/20 21:16 Discontinued NaCl Premix] 500 mg in 250 ml IV UD Ceftriaxone 1 GM/50 ML PREMIX* [ROCEPHIN 1 Gm-D5w 50 ml Med 06/17/20 10:00 Discontinued Bag] 1 g in 50 ml IV Q24H10 Ceftriaxone 1 GM/50 ML PREMIX* [ROCEPHIN 1 Gm-D5w 50 ml Med 06/16/20 18:54 Discontinued Bag] 1 g in 50 ml IV STAT Ceftriaxone 1 GM/50 ML PREMIX* [ROCEPHIN 1 Gm-D5w 50 ml Med 06/16/20 19:08 Discontinued Bag] 1 g in 50 ml IV UD Dexamethasone 4 mg [Decadron 4 MG INJ] Med 06/16/20 21:16 Discontinued 12 mg .ROUTE .STK-MED ONE Dexamethasone Sod Phosphate [Decadron 10Mg Inj.] Med 06/16/20 22:00 Discontinued 10 mg IV BID Fentanyl Citrate 100 Mcg/2 ml* [Sublimaze 100 Mcg/2 ml* Med 06/16/20 17:35 Discontinued ] 100 mcg .ROUTE .STK-MED ONE Fentanyl Citrate 100 Mcg/2 ml* [Sublimaze 100 Mcg/2 ml* Med 06/16/20 19:11 Discontinued ] 100 mcg .ROUTE .STK-MED ONE Fentanyl Citrate 100 Mcg/2 ml* [Sublimaze 100 Mcg/2 ml* Med 06/16/20 17:09 Discontinued ] 50 mcg IV STAT ONE Fentanyl Citrate 100 Mcg/2 ml* [Sublimaze 100 Mcg/2 ml* Med 06/16/20 19:10 Discontinued ] 50 mcg IV STAT ONE Gabapentin 300 mg [Neurontin 300 mg] Med 06/16/20 22:15 Discontinued 600 mg PO QID Ibuprofen 400 mg [Motrin 400 mg] Med 06/16/20 21:55 Discontinued 400 mg PO Q4H PRN PRN Methylprednis Sod Succ 125 mg* [solu-MEDROL 125 MG] Med 06/17/20 00:00 Discontinued 80 mg IV Q6HT NaCl 0.9% 1000 ml [Sodium Chloride 0.9% 1000 ML] 1,000 Med 06/16/20 17:36 Discontinued ml .ROUTE UD NaCl 0.9% 1000 ml [Sodium Chloride 0.9% 1000 ML] 1,000 Med 06/16/20 21:12 Di scontinued ml .ROUTE UD NaCl 0.9% 1000 ml [Sodium Chloride 0.9% 1000 ML] 1,000 Med 06/16/20 17:15 Discontinued ml IV 100 mls/hr NaCl 0.9% 1000 ml [Sodium Chloride 0.9% 1000 ML] 1,000 Med 06/16/20 19:15 Discontinued ml IV 50 mls/hr Ondansetron HCl 4 mg/2 ml [Zofran 4 MG/2 ML VIAL] Med 06/16/20 17:35 Discontinued 4 mg .ROUTE .STK-MED ONE Ondansetron HCl 4 mg/2 ml [Zofran 4 MG/2 ML VIAL] Med 06/16/20 17:09 Discontinued 4 mg IV STAT ONE Pulse Oximetry .spot check RT 06/16/20 19:04 Active Respiratory Therapy Assessment DAILY RT 06/16/20 17:43 Completed Respiratory Therapy Assessment DAILY RT 06/17/20 07:00 Active Respiratory Therapy Consult ROUTINE RT 06/16/20 19:06 Completed Smoking Cessation Education ONCE RT 06/16/20 23:16 Completed Patient Care Notes (Last 24 hours) 06/17/20 11:21 Nursing Note by Kirsten Philip At approx 10:26 a.m. 06/17/20 this nurse went into pt's room to administer medications. Pt was walking around in room and stated "I'm AM going outside to smoke." This nurse advised pt to remain in room and that she needed her IV antibiotic and Iv steroid.. Pt stated "You can give them to me when I get back inside but I AM going RIGHT NOW to smoke". Pt never returned even though she had left a bag with personal clothing in the closet in the room. Pt's spouse called and he said "She's here now with me". Pt's spouse advised that pt left against medical advise and that she might still have an IV as she had disconnected her IV tubing at the [facility] herself prior to this nurse going into the room. The patient's voice in the background of the phone call to the spouse was heard to say "I took the fing IV out myself!" hog room supervisor T Morrison RN telephoned police to inform them that the patient left and might still have an IV in her arm. They advised that they would send someone to her house to check and see that she did indeed remove her IV. Dr Giordano called and notified of the preceding events. Initialized on 06/17/20 11:21 - END OF NOTE 06/17/20 10:15 Case Management Note by Carmen Yanes ATTEMPTED TO CALL PATIENT TWICE THIS AM TO DISCUSS CASE MANAGEMENT NEEDS. PER NURSING STAFF- PATIENT REFUSING TO TALK TO ANYONE AT THIS TIME Initialized on 06/17/20 10:15 - END OF NOTE 06/16/20 21:45 (created 06/16/20 23:28) SBAR Note by Juan C Reyes SITUATION I am calling about NATHAN MENDOZA the patient's code status is Full Code The problem I am calling about is: PT HOME MEDS AND PAIN MEDS FOR PT ASSESSMENT RECOMMENDATION Physician notified at [phone] New Orders received: CONTINUE ALL HOME MEDS. TYLENOL 500MG Q4H PRN PAIN AND IBUPROFEN 400MG Q4H PRN PAIN Vital Signs (Last 4 hours) Temp Pulse Resp BP Pulse Ox 06/16/20 22:54 97.6 F 76 18 106/60 91 L 06/16/20 22:16 92 H 20 96 06/16/20 21:15 97.6 F 76 18 106/60 91 L Diagnois, Code Status Date of Arrival on Unit 06/16/20 Admitted From Emergency Dept Diagnosis COPD exacerbation Resucitation Status Full Code Intake and Output 24 Hours 06/16/20 06/17/20 06:59 06:59 Intake Total 250 Balance 250 Weight 67.3 kg Intake: Intake, Oral Amount 250 Physical Assessment Mental Status Alert Patient Orientation Person,Place,Time Coma Scale Total 15 Breath Sounds [Anterior/ Wheezes,Coarse Posterior] Breath Sounds [Throughout] Wheezes,Rhonchi Bowel Sounds [All Quadrants] Present Abdomen Description Soft,Tender with Palpation Urine Appearance Clear Urine Color Yellow Skin Color Normal for Race Skin Temperature Warm Pain Scale (Last 24 Hours) Pain Intensity 8 Pain Intensity 9 Pain Intensity 6 Pain Intensity 6 Pain Intensity 6 Pain Intensity 6 Pain Intensity 3 Pain Intensity 3 Pain Intensity 6 Pain Intensity 6 Pain Intensity 6 Pain Intensity 7 PAST MEDICAL HISTORY Neurological History Migraines ENT History No Pertinent History Endocrine Medical History No Pertinent History Respiratory History No Pertinent History Cardiac History No Pertinent History GI Medical History Gallbladder Disease History Other Reproductive Disorders Other Pyscho-Social History Bipolar Communicable Disease No Pertinent History Diet Order (Last 24 Hours) 06/17/20 Breakfast House Regular Diet Lab Results (Last 24 Hours) 06/16/20 06/16/20 06/16/20 Range/Units 20:30 17:35 17:35 WBC (4.0-10.5) K/mm3 RBC (4.1-5.4) M/mm3 Hgb (12.0-16.0) gm/dl Hct (35-47) % MCV (78-100) fl MCH (26-32) pg MCHC (32-36) g/dl RDW (11.5-14.0) % Plt Count (150-450) K/mm3 MPV (7.5-11.0) fl Gran % (36.0-66.0) % Eos # (Auto) (0-0.5) Absolute Lymphs (auto) (1.0-4.6) Absolute Monos (auto) (0.0-1.3) Lymphocytes % (24.0-44.0) % Monocytes % (0.0-12.0) % Eosinophils % (0.00-5.0) % Basophils % (0.0-0.4) % Absolute Granulocytes (1.4-6.9) Basophils # (0-0.4) PT (9.95-12.35) SECONDS INR (0.8-3.0) Sodium (137-145) mmol/L Potassium (3.5-5.1) mmol/L Chloride (98-107) mmol/L Carbon Dioxide (22-30) mmol/L Anion Gap (5-15) MEQ/L BUN (7-17) mg/dL Creatinine (0.52-1.04) mg/dL Estimated GFR ML/MIN Glucose (74-106) mg/dL Lactic Acid (0.4-2.0) Calcium (8.4-10.2) mg/dL Total Bilirubin (0.2-1.3) mg/dL AST (14-36) U/L ALT (0-35) U/L Alkaline Phosphatase (38-126) U/L Troponin I < 0.012 (0.000-0.034) ng/mL NT-Pro-B Natriuret Pep (0-450) pg/mL Serum Total Protein (6.3-8.2) g/dL Albumin (3.5-5.0) g/dL Procalcitonin (0.030-0.080) ng/mL Urine Color (YELLOW) Urine Appearance (CLEAR) Urine pH (5-6) Ur Specific [place] (1.005-1.025) Urine Protein (Negative) Urine Ketones (NEGATIVE) Urine Blood (0-5) Ed/ul Urine Nitrite (NEGATIVE) Urine Bilirubin (NEGATIVE) Urine Urobilinogen (0-1) mg/dL Ur Leukocyte Esterase (NEGATIVE) Urine WBC (Auto) (0-5) /HPF Urine RBC (Auto) (0-2) /HPF U Epithel Cells (Auto) (FEW) /HPF Urine Bacteria (Auto) (NEGATIVE) /HPF Urine Culture Reflexed (NO) Urine Glucose (NEGATIVE) mg/dL Influenza Type A Ag NEGATIVE (NEGATIVE) Influenza Type B Ag NEGATIVE (NEGATIVE) SARS-CoV-2 (PCR) NEGATIVE (NEGATIVE) 06/16/20 06/16/20 06/16/20 Range/Units 17:20 17:15 17:09 WBC (4.0-10.5) K/mm3 RBC (4.1-5.4) M/mm3 Hgb (12.0-16.0) gm/dl Hct (35-47) % MCV (78-100) fl MCH (26-32) pg MCHC (32-36) g/dl RDW (11.5-14.0) % Plt Count (150-450) K/mm3 MPV (7.5-11.0) fl Gran % (36.0-66.0) % Eos # (Auto) (0-0.5) Absolute Lymphs (auto) (1.0-4.6) Absolute Monos (auto) (0.0-1.3) Lymphocytes % (24.0-44.0) % Monocytes % (0.0-12.0) % Eosinophils % (0.00-5.0) % Basophils % (0.0-0.4) % Absolute Granulocytes (1.4-6.9) Basophils # (0-0.4) PT (9.95-12.35) SECONDS INR (0.8-3.0) Sodium (137-145) mmol/L Potassium (3.5-5.1) mmol/L Chloride (98-107) mmol/L Carbon Dioxide (22-30) mmol/L Anion Gap (5-15) MEQ/L BUN (7-17) mg/dL Creatinine (0.52-1.04) mg/dL Estimated GFR ML/MIN Glucose (74-106) mg/dL Lactic Acid 1.3 (0.4-2.0) Calcium (8.4-10.2) mg/dL Total Bilirubin (0.2-1.3) mg/dL AST (14-36) U/L ALT (0-35) U/L Alkaline Phosphatase (38-126) U/L Troponin I < 0.012 (0.000-0.034) ng/mL NT-Pro-B Natriuret Pep (0-450) pg/mL Serum Total Protein (6.3-8.2) g/dL Albumin (3.5-5.0) g/dL Procalcitonin (0.030-0.080) ng/mL Urine Color YELLOW (YELLOW) Urine Appearance CLEAR (CLEAR) Urine pH 5.0 (5-6) Ur Specific [place] 1.013 (1.005-1.025) Urine Protein NEGATIVE (Negative) Urine Ketones NEGATIVE (NEGATIVE) Urine Blood NEGATIVE (0-5) Ed/ul Urine Nitrite NEGATIVE (NEGATIVE) Urine Bilirubin NEGATIVE (NEGATIVE) Urine Urobilinogen NEGATIVE (0-1) mg/dL Ur Leukocyte Esterase NEGATIVE (NEGATIVE) Urine WBC (Auto) 0-2 (0-5) /HPF Urine RBC (Auto) NONE (0-2) /HPF U Epithel Cells (Auto) RARE (FEW) /HPF Urine Bacteria (Auto) NONE (NEGATIVE) /HPF Urine Culture Reflexed NO (NO) Urine Glucose NEGATIVE (NEGATIVE) mg/dL Influenza Type A Ag (NEGATIVE) Influenza Type B Ag (NEGATIVE) SARS-CoV-2 (PCR) (NEGATIVE) 06/16/20 06/16/20 06/16/20 Range/Units 17:09 17:00 17:00 WBC 12.4 H (4.0-10.5) K/mm3 RBC 4.41 (4.1-5.4) M/mm3 Hgb 14.0 (12.0-16.0) gm/dl Hct 43.9 (35-47) % MCV 99.5 (78-100) fl MCH 31.7 (26-32) pg MCHC 31.9 L (32-36) g/dl RDW 14.3 H (11.5-14.0) % Plt Count 489 H (150-450) K/mm3 MPV 8.5 (7.5-11.0) fl Gran % 67.2 H (36.0-66.0) % Eos # (Auto) 0.82 H (0-0.5) Absolute Lymphs (auto) 2.15 (1.0-4.6) Absolute Monos (auto) 1.07 (0.0-1.3) Lymphocytes % 17.4 L (24.0-44.0) % Monocytes % 8.7 (0.0-12.0) % Eosinophils % 6.6 H (0.00-5.0) % Basophils % 0.1 (0.0-0.4) % Absolute Granulocytes 8.31 H (1.4-6.9) Basophils # 0.01 (0-0.4) PT 12.2 (9.95-12.35) SECONDS INR 1.08 (0.8-3.0) Sodium (137-145) mmol/L Potassium (3.5-5.1) mmol/L Chloride (98-107) mmol/L Carbon Dioxide (22-30) mmol/L Anion Gap (5-15) MEQ/L BUN (7-17) mg/dL Creatinine (0.52-1.04) mg/dL Estimated GFR ML/MIN Glucose (74-106) mg/dL Lactic Acid (0.4-2.0) Calcium (8.4-10.2) mg/dL Total Bilirubin (0.2-1.3) mg/dL AST (14-36) U/L ALT (0-35) U/L Alkaline Phosphatase (38-126) U/L Troponin I (0.000-0.034) ng/mL NT-Pro-B Natriuret Pep 42.8 (0-450) pg/mL Serum Total Protein (6.3-8.2) g/dL Albumin (3.5-5.0) g/dL Procalcitonin 0.055 (0.030-0.080) ng/mL Urine Color (YELLOW) Urine Appearance (CLEAR) Urine pH (5-6) Ur Specific [place] (1.005-1.025) Urine Protein (Negative) Urine Ketones (NEGATIVE) Urine Blood (0-5) Ed/ul Urine Nitrite (NEGATIVE) Urine Bilirubin (NEGATIVE) Urine Urobilinogen (0-1) mg/dL Ur Leukocyte Esterase (NEGATIVE) Urine WBC (Auto) (0-5) /HPF Urine RBC (Auto) (0-2) /HPF U Epithel Cells (Auto) (FEW) /HPF Urine Bacteria (Auto) (NEGATIVE) /HPF Urine Culture Reflexed (NO) Urine Glucose (NEGATIVE) mg/dL Influenza Type A Ag (NEGATIVE) Influenza Type B Ag (NEGATIVE) SARS-CoV-2 (PCR) (NEGATIVE) 06/16/20 Range/Units 17:00 WBC (4.0-10.5) K/mm3 RBC (4.1-5.4) M/mm3 Hgb (12.0-16.0) gm/dl Hct (35-47) % MCV (78-100) fl MCH (26-32) pg MCHC (32-36) g/dl RDW (11.5-14.0) % Plt Count (150-450) K/mm3 MPV (7.5-11.0) fl Gran % (36.0-66.0) % Eos # (Auto) (0-0.5) Absolute Lymphs (auto) (1.0-4.6) Absolute Monos (auto) (0.0-1.3) Lymphocytes % (24.0-44.0) % Monocytes % (0.0-12.0) % Eosinophils % (0.00-5.0) % Basophils % (0.0-0.4) % Absolute Granulocytes (1.4-6.9) Basophils # (0-0.4) PT (9.95-12.35) SECONDS INR (0.8-3.0) Sodium 135 L (137-145) mmol/L Potassium 4.6 (3.5-5.1) mmol/L Chloride 100 (98-107) mmol/L Carbon Dioxide 25 (22-30) mmol/L Anion Gap 14.4 (5-15) MEQ/L BUN 14 (7-17) mg/dL Creatinine 0.54 (0.52-1.04) mg/dL Estimated GFR > 60.0 ML/MIN Glucose 124 H (74-106) mg/dL Lactic Acid (0.4-2.0) Calcium 9.4 (8.4-10.2) mg/dL Total Bilirubin 0.40 (0.2-1.3) mg/dL AST 33 (14-36) U/L ALT 36 H (0-35) U/L Alkaline Phosphatase 110 (38-126) U/L Troponin I (0.000-0.034) ng/mL NT-Pro-B Natriuret Pep (0-450) pg/mL Serum Total Protein 8.1 (6.3-8.2) g/dL Albumin 4.5 (3.5-5.0) g/dL Procalcitonin (0.030-0.080) ng/mL Urine Color (YELLOW) Urine Appearance (CLEAR) Urine pH (5-6) Ur Specific [place] (1.005-1.025) Urine Protein (Negative) Urine Ketones (NEGATIVE) Urine Blood (0-5) Ed/ul Urine Nitrite (NEGATIVE) Urine Bilirubin (NEGATIVE) Urine Urobilinogen (0-1) mg/dL Ur Leukocyte Esterase (NEGATIVE) Urine WBC (Auto) (0-5) /HPF Urine RBC (Auto) (0-2) /HPF U Epithel Cells (Auto) (FEW) /HPF Urine Bacteria (Auto) (NEGATIVE) /HPF Urine Culture Reflexed (NO) Urine Glucose (NEGATIVE) mg/dL Influenza Type A Ag (NEGATIVE) Influenza Type B Ag (NEGATIVE) SARS-CoV-2 (PCR) (NEGATIVE) Lactic Acid (Last 24 Hours) 06/16/20 17:09 Lactic Acid 1.3 Microbiology Results (Last 24 Hours) 06/16/20 17:35 Blood Culture Gram Stain - Pending Blood Blood Culture - Pending 06/16/20 17:30 Blood Culture Gram Stain - Pending Blood Blood Culture - Pending Orders (Last 24 Hours) Category Date Time Status Up Ad Chata ROUTINE Activity 06/16/20 19:[address] in Observation ROUTINE Care 06/16/20 19:04 Active Gopal Gibson, Apply ROUTINE Care 06/16/20 19:04 Active Weight,Daily 0600 Care 06/16/20 19:04 Active House Regular Diet Diet 06/17/20 Breakfast Active BLOOD CULTURE Stat Lab 06/16/20 17:35 Received CBC AM.LAB Lab 06/17/20 04:00 Ordered CMP AM.LAB Lab 06/17/20 04:00 Ordered TROPONIN Q3H Lab 06/16/20 23:15 Ordered Acetaminophen 500 mg [Tylenol Extra Strength 500 mg* Med 06/16/20 21:54 Ord ered ] 500 mg PO Q4H PRN PRN Albuterol 2.5 mg/3 ml Neb [Proventil 2.5 mg/3 ml Neb Med 06/16/20 23:06 Ordered ] 2.5 mg IH Q4H PRN PRN Azithromycin 500 mg/250 ml [Zithromax 500 MG/ 250 ML Med 06/17/20 22:00 Active NaCl Premix] 500 mg in 250 ml IV Q24H22 Ceftriaxone 1 GM/50 ML PREMIX* [ROCEPHIN 1 Gm-D5w 50 ml Med 06/17/20 10:00 Active Bag] 1 g in 50 ml IV Q24H10 Dexamethasone Sod Phosphate [Decadron 10Mg Inj.] Med 06/16/20 22:00 Active 10 mg IV BID Gabapentin 300 mg [Neurontin 300 mg] Med 06/16/20 22:15 Ordered 600 mg PO QID Ibuprofen 400 mg [Motrin 400 mg] Med 06/16/20 21:55 Ordered 400 mg PO Q4H PRN PRN NaCl 0.9% 1000 ml [Sodium Chloride 0.9% 1000 ML] 1,000 Med 06/16/20 19:15 Active ml IV 50 mls/hr Pulse Oximetry .spot check RT 06/16/20 19:04 Active Respiratory Therapy Assessment DAILY RT 06/17/20 07:00 Active Active Visit Medications Generic Name Dose Route Start Last Admin Trade Name Freq PRN Reason Stop Dose Admin Acetaminophen 500 mg 06/16/20 21:54 06/16/20 22:28 Tylenol Extra Strength 500 Mg PO 07/16/20 21:53 500 mg Q4H PRN PRN Administration PAIN Albuterol Sulfate 2.5 mg 06/16/20 23:06 Proventil 2.5 Mg/3 Ml Neb IH 07/16/20 23:05 Q4H PRN PRN SHORTNESS OF BREATH/WHEEZING Dexamethasone Sodium Phosphate 10 mg 06/16/20 22:00 06/16/20 21:25 Decadron 10mg Inj. IV 07/16/20 21:59 10 mg BID OMAR Administration Gabapentin 600 mg 06/16/20 22:15 06/16/20 22:28 Neurontin 300 Mg PO 07/16/20 22:14 600 mg QID OMAR Administration Sodium Chloride 1,000 mls @ 50 mls/hr 06/16/20 19:15 06/16/20 21:27 Sodium Chloride 0.9% 1000 Ml IV 07/16/20 19:14 50 mls/hr .Q20H OMAR Administration Ceftriaxone Sodium/Dextrose 1 g in 50 mls @ 100 mls/hr 06/17/20 10:00 Rocephin 1 Gm-D5w 50 Ml Bag IV 07/17/20 09:59 Q24H10 OMAR Azithromycin 500 mg in 250 mls @ 250 mls/hr 06/17/20 22:00 06/16/20 21:27 Zithromax 500 Mg/ 250 Ml Nacl Premix IV 07/17/20 21:59 250 mls/hr Q24H22 OMAR Administration Ibuprofen 400 mg 06/16/20 21:55 Motrin 400 Mg PO 07/16/20 21:54 Q4H PRN PRN PAIN Initialized on 06/16/20 23:28 - END OF NOTE Patient left hospital without let any staff member notified. She left with IV cannula in. We called her home. Her states that she is home. We advsed to come and atleast let IV out. Code(s): J44.1 - CHRONIC OBSTRUCTIVE PULMONARY DISEASE W (ACUTE) EXACERBATION Hospital Summary - Hospital Course Hospital Course: Last Vital Signs Temp 97.4 F 06/17/20 07:02 Pulse 57 L 06/17/20 07:19 Resp 18 06/17/20 07:19 BP 100/59 06/17/20 07:02 Pulse Ox 93 L 06/17/20 07:19 Allergies Sulfa (Sulfonamide Antibiotics) Allergy (Intermediate, Verified 06/16/20 21:33) Vomiting bee venom protein (honey bee) Allergy (Verified 06/16/20 21:33) methylprednisolone [From Solu-Medrol] Allergy (Verified 06/16/20 21:33) sumatriptan [From Imitrex] Allergy (Verified 06/16/20 21:33) ketorolac [From Toradol] Adverse Reaction (Verified 06/16/20 21:33) Nausea nitrofurantoin [From Macrobid] Adverse Reaction (Verified 06/16/20 21:33) tramadol Adverse Reaction (Verified 06/16/20 21:33) Nausea Intake & Output 06/17/20 06/18/20 11:59 11:59 Intake Total 1427 Output Total 400 Balance 1027 Weight 67.6 kg Lab Tests 06/16/20 06/16/20 06/16/20 17:00 17:00 17:00 WBC RBC Hgb Hct MCV MCH MCHC RDW Plt Count MPV Gran % Eos # (Auto) Absolute Lymphs (auto) Absolute Monos (auto) Lymphocytes % Monocytes % Eosinophils % Basophils % Absolute Granulocytes Basophils # PT 12.2 INR 1.08 Sodium 135 L Potassium 4.6 Chloride 100 Carbon Dioxide 25 Anion Gap 14.4 BUN 14 Creatinine 0.54 Estimated GFR > 60.0 Glucose 124 H Lactic Acid Calcium 9.4 Total Bilirubin 0.40 AST 33 ALT 36 H Alkaline Phosphatase 110 Troponin I NT-Pro-B Natriuret Pep 42.8 Serum Total Protein 8.1 Albumin 4.5 Procalcitonin 0.055 Urine Color Urine Appearance Urine pH Ur Specific [place] Urine Protein Urine Ketones Urine Blood Urine Nitrite Urine Bilirubin Urine Urobilinogen Ur Leukocyte Esterase Urine WBC (Auto) Urine RBC (Auto) U Epithel Cells (Auto) Urine Bacteria (Auto) Urine Culture Reflexed Urine Glucose Influenza Type A Ag Influenza Type B Ag SARS-CoV-2 (PCR) 06/16/20 06/16/20 06/16/20 17:09 17:09 17:15 WBC 12.4 H RBC 4.41 Hgb 14.0 Hct 43.9 MCV 99.5 MCH 31.7 MCHC 31.9 L RDW 14.3 H Plt Count 489 H MPV 8.5 Gran % 67.2 H Eos # (Auto) 0.82 H Absolute Lymphs (auto) 2.15 Absolute Monos (auto) 1.07 Lymphocytes % 17.4 L Monocytes % 8.7 Eosinophils % 6.6 H Basophils % 0.1 Absolute Granulocytes 8.31 H Basophils # 0.01 PT INR Sodium Potassium Chloride Carbon Dioxide Anion Gap BUN Creatinine Estimated GFR Glucose Lactic Acid 1.3 Calcium Total Bilirubin AST ALT Alkaline Phosphatase Troponin I < 0.012 NT-Pro-B Natriuret Pep Serum Total Protein Albumin Procalcitonin Urine Color Urine Appearance Urine pH Ur Specific [place] Urine Protein Urine Ketones Urine Blood Urine Nitrite Urine Bilirubin Urine Urobilinogen Ur Leukocyte Esterase Urine WBC (Auto) Urine RBC (Auto) U Epithel Cells (Auto) Urine Bacteria (Auto) Urine Culture Reflexed Urine Glucose Influenza Type A Ag Influenza Type B Ag SARS-CoV-2 (PCR) 06/16/20 06/16/20 06/16/20 17:20 17:35 17:35 WBC RBC Hgb Hct MCV MCH MCHC RDW Plt Count MPV Gran % Eos # (Auto) Absolute Lymphs (auto) Absolute Monos (auto) Lymphocytes % Monocytes % Eosinophils % Basophils % Absolute Granulocytes Basophils # PT INR Sodium Potassium Chloride Carbon Dioxide Anion Gap BUN Creatinine Estimated GFR Glucose Lactic Acid Calcium Total Bilirubin AST ALT Alkaline Phosphatase Troponin I NT-Pro-B Natriuret Pep Serum Total Protein Albumin Procalcitonin Urine Color YELLOW Urine Appearance CLEAR Urine pH 5.0 Ur Specific [place] 1.013 Urine Protein NEGATIVE Urine Ketones NEGATIVE Urine Blood NEGATIVE Urine Nitrite NEGATIVE Urine Bilirubin NEGATIVE Urine Urobilinogen NEGATIVE Ur Leukocyte Esterase NEGATIVE Urine WBC (Auto) 0-2 Urine RBC (Auto) NONE U Epithel Cells (Auto) RARE Urine Bacteria (Auto) NONE Urine Culture Reflexed NO Urine Glucose NEGATIVE Influenza Type A Ag NEGATIVE Influenza Type B Ag NEGATIVE SARS-CoV-2 (PCR) NEGATIVE 06/16/20 06/16/20 06/17/20 20:30 23:30 05:30 WBC 5.0 RBC 3.83 L Hgb 12.0 Hct 38.9 MCV 101.6 H MCH 31.3 MCHC 30.8 L RDW 14.2 H Plt Count 410 MPV 8.8 Gran % Eos # (Auto) Absolute Lymphs (auto) Absolute Monos (auto) Lymphocytes % Monocytes % Eosinophils % Basophils % Absolute Granulocytes Basophils # PT INR Sodium Potassium Chloride Carbon Dioxide Anion Gap BUN Creatinine Estimated GFR Glucose Lactic Acid Calcium Total Bilirubin AST ALT Alkaline Phosphatase Troponin I < 0.012 < 0.012 NT-Pro-B Natriuret Pep Serum Total Protein Albumin Procalcitonin Urine Color Urine Appearance Urine pH Ur Specific [place] Urine Protein Urine Ketones Urine Blood Urine Nitrite Urine Bilirubin Urine Urobilinogen Ur Leukocyte Esterase Urine WBC (Auto) Urine RBC (Auto) U Epithel Cells (Auto) Urine Bacteria (Auto) Urine Culture Reflexed Urine Glucose Influenza Type A Ag Influenza Type B Ag SARS-CoV-2 (PCR) 06/17/20 05:30 WBC RBC Hgb Hct MCV MCH MCHC RDW Plt Count MPV Gran % Eos # (Auto) Absolute Lymphs (auto) Absolute Monos (auto) Lymphocytes % Monocytes % Eosinophils % Basophils % Absolute Granulocytes Basophils # PT INR Sodium 137 Potassium 5.3 H Chloride 107 Carbon Dioxide 26 Anion Gap 9.7 BUN 20 H Creatinine 0.72 Estimated GFR > 60.0 Glucose 128 H Lactic Acid Calcium 9.0 Total Bilirubin 0.30 AST 24 ALT 29 Alkaline Phosphatase 98 Troponin I NT-Pro-B Natriuret Pep Serum Total Protein 6.9 Albumin 3.7 Procalcitonin Urine Color Urine Appearance Urine pH Ur Specific [place] Urine Protein Urine Ketones Urine Blood Urine Nitrite Urine Bilirubin Urine Urobilinogen Ur Leukocyte Esterase Urine WBC (Auto) Urine RBC (Auto) U Epithel Cells (Auto) Urine Bacteria (Auto) Urine Culture Reflexed Urine Glucose Influenza Type A Ag Influenza Type B Ag SARS-CoV-2 (PCR) - Vitals & Intake/Output Vital Signs: Vital Signs Temperature 97.4 F 06/17/20 07:02 Pulse Rate 57 L 06/17/20 07:19 Respiratory Rate 18 06/17/20 07:19 Blood Pressure 100/59 06/17/20 07:02 O2 Sat by Pulse Oximetry 93 L 06/17/20 07:19 Intake & Output: Intake & Output 06/15/20 06/16/20 06/17/20 06/18/20 11:59 11:59 11:59 11:59 Intake Total 1427 Output Total 400 Balance 1027 Weight 67.6 kg - Lab Result Diagrams: 06/17/20 05:30 06/17/20 05:30 Lab Results-Last 24 Hrs: Lab Results-Last 24 Hours 06/16/20 06/16/20 06/16/20 Range/Units 17:00 17:00 17:00 WBC (4.0-10.5) K/mm3 RBC (4.1-5.4) M/mm3 Hgb (12.0-16.0) gm/dl Hct (35-47) % MCV (78-100) fl MCH (26-32) pg MCHC (32-36) g/dl RDW (11.5-14.0) % Plt Count (150-450) K/mm3 MPV (7.5-11.0) fl Gran % (36.0-66.0) % Eos # (Auto) (0-0.5) Absolute Lymphs (auto) (1.0-4.6) Absolute Monos (auto) (0.0-1.3) Lymphocytes % (24.0-44.0) % Monocytes % (0.0-12.0) % Eosinophils % (0.00-5.0) % Basophils % (0.0-0.4) % Absolute Granulocytes (1.4-6.9) Basophils # (0-0.4) PT 12.2 (9.95-12.35) SECONDS INR 1.08 (0.8-3.0) Sodium 135 L (137-145) mmol/L Potassium 4.6 (3.5-5.1) mmol/L Chloride 100 (98-107) mmol/L Carbon Dioxide 25 (22-30) mmol/L Anion Gap 14.4 (5-15) MEQ/L BUN 14 (7-17) mg/dL Creatinine 0.54 (0.52-1.04) mg/dL Estimated GFR > 60.0 ML/MIN Glucose 124 H (74-106) mg/dL Lactic Acid (0.4-2.0) Calcium 9.4 (8.4-10.2) mg/dL Total Bilirubin 0.40 (0.2-1.3) mg/dL AST 33 (14-36) U/L ALT 36 H (0-35) U/L Alkaline Phosphatase 110 (38-126) U/L Troponin I (0.000-0.034) ng/mL NT-Pro-B Natriuret Pep 42.8 (0-450) pg/mL Serum Total Protein 8.1 (6.3-8.2) g/dL Albumin 4.5 (3.5-5.0) g/dL Procalcitonin 0.055 (0.030-0.080) ng/mL Urine Color (YELLOW) Urine Appearance (CLEAR) Urine pH (5-6) Ur Specific [place] (1.005-1.025) Urine Protein (Negative) Urine Ketones (NEGATIVE) Urine Blood (0-5) Ed/ul Urine Nitrite (NEGATIVE) Urine Bilirubin (NEGATIVE) Urine Urobilinogen (0-1) mg/dL Ur Leukocyte Esterase (NEGATIVE) Urine WBC (Auto) (0-5) /HPF Urine RBC (Auto) (0-2) /HPF U Epithel Cells (Auto) (FEW) /HPF Urine Bacteria (Auto) (NEGATIVE) /HPF Urine Culture Reflexed (NO) Urine Glucose (NEGATIVE) mg/dL Influenza Type A Ag (NEGATIVE) Influenza Type B Ag (NEGATIVE) SARS-CoV-2 (PCR) (NEGATIVE) 06/16/20 06/16/20 06/16/20 Range/Units 17:09 17:09 17:15 WBC 12.4 H (4.0-10.5) K/mm3 RBC 4.41 (4.1-5.4) M/mm3 Hgb 14.0 (12.0-16.0) gm/dl Hct 43.9 (35-47) % MCV 99.5 (78-100) fl MCH 31.7 (26-32) pg MCHC 31.9 L (32-36) g/dl RDW 14.3 H (11.5-14.0) % Plt Count 489 H (150-450) K/mm3 MPV 8.5 (7.5-11.0) fl Gran % 67.2 H (36.0-66.0) % Eos # (Auto) 0.82 H (0-0.5) Absolute Lymphs (auto) 2.15 (1.0-4.6) Absolute Monos (auto) 1.07 (0.0-1.3) Lymphocytes % 17.4 L (24.0-44.0) % Monocytes % 8.7 (0.0-12.0) % Eosinophils % 6.6 H (0.00-5.0) % Basophils % 0.1 (0.0-0.4) % Absolute Granulocytes 8.31 H (1.4-6.9) Basophils # 0.01 (0-0.4) PT (9.95-12.35) SECONDS INR (0.8-3.0) Sodium (137-145) mmol/L Potassium (3.5-5.1) mmol/L Chloride (98-107) mmol/L Carbon Dioxide (22-30) mmol/L Anion Gap (5-15) MEQ/L BUN (7-17) mg/dL Creatinine (0.52-1.04) mg/dL Estimated GFR ML/MIN Glucose (74-106) mg/dL Lactic Acid 1.3 (0.4-2.0) Calcium (8.4-10.2) mg/dL Total Bilirubin (0.2-1.3) mg/dL AST (14-36) U/L ALT (0-35) U/L Alkaline Phosphatase (38-126) U/L Troponin I < 0.012 (0.000-0.034) ng/mL NT-Pro-B Natriuret Pep (0-450) pg/mL Serum Total Protein (6.3-8.2) g/dL Albumin (3.5-5.0) g/dL Procalcitonin (0.030-0.080) ng/mL Urine Color (YELLOW) Urine Appearance (CLEAR) Urine pH (5-6) Ur Specific [place] (1.005-1.025) Urine Protein (Negative) Urine Ketones (NEGATIVE) Urine Blood (0-5) Ed/ul Urine Nitrite (NEGATIVE) Urine Bilirubin (NEGATIVE) Urine Urobilinogen (0-1) mg/dL Ur Leukocyte Esterase (NEGATIVE) Urine WBC (Auto) (0-5) /HPF Urine RBC (Auto) (0-2) /HPF U Epithel Cells (Auto) (FEW) /HPF Urine Bacteria (Auto) (NEGATIVE) /HPF Urine Culture Reflexed (NO) Urine Glucose (NEGATIVE) mg/dL Influenza Type A Ag (NEGATIVE) Influenza Type B Ag (NEGATIVE) SARS-CoV-2 (PCR) (NEGATIVE) 06/16/20 06/16/20 06/16/20 Range/Units 17:20 17:35 17:35 WBC (4.0-10.5) K/mm3 RBC (4.1-5.4) M/mm3 Hgb (12.0-16.0) gm/dl Hct (35-47) % MCV (78-100) fl MCH (26-32) pg MCHC (32-36) g/dl RDW (11.5-14.0) % Plt Count (150-450) K/mm3 MPV (7.5-11.0) fl Gran % (36.0-66.0) % Eos # (Auto) (0-0.5) Absolute Lymphs (auto) (1.0-4.6) Absolute Monos (auto) (0.0-1.3) Lymphocytes % (24.0-44.0) % Monocytes % (0.0-12.0) % Eosinophils % (0.00-5.0) % Basophils % (0.0-0.4) % Absolute Granulocytes (1.4-6.9) Basophils # (0-0.4) PT (9.95-12.35) SECONDS INR (0.8-3.0) Sodium (137-145) mmol/L Potassium (3.5-5.1) mmol/L Chloride (98-107) mmol/L Carbon Dioxide (22-30) mmol/L Anion Gap (5-15) MEQ/L BUN (7-17) mg/dL Creatinine (0.52-1.04) mg/dL Estimated GFR ML/MIN Glucose (74-106) mg/dL Lactic Acid (0.4-2.0) Calcium (8.4-10.2) mg/dL Total Bilirubin (0.2-1.3) mg/dL AST (14-36) U/L ALT (0-35) U/L Alkaline Phosphatase (38-126) U/L Troponin I (0.000-0.034) ng/mL NT-Pro-B Natriuret Pep (0-450) pg/mL Serum Total Protein (6.3-8.2) g/dL Albumin (3.5-5.0) g/dL Procalcitonin (0.030-0.080) ng/mL Urine Color YELLOW (YELLOW) Urine Appearance CLEAR (CLEAR) Urine pH 5.0 (5-6) Ur Specific [place] 1.013 (1.005-1.025) Urine Protein NEGATIVE (Negative) Urine Ketones NEGATIVE (NEGATIVE) Urine Blood NEGATIVE (0-5) Ed/ul Urine Nitrite NEGATIVE (NEGATIVE) Urine Bilirubin NEGATIVE (NEGATIVE) Urine Urobilinogen NEGATIVE (0-1) mg/dL Ur Leukocyte Esterase NEGATIVE (NEGATIVE) Urine WBC (Auto) 0-2 (0-5) /HPF Urine RBC (Auto) NONE (0-2) /HPF U Epithel Cells (Auto) RARE (FEW) /HPF Urine Bacteria (Auto) NONE (NEGATIVE) /HPF Urine Culture Reflexed NO (NO) Urine Glucose NEGATIVE (NEGATIVE) mg/dL Influenza Type A Ag NEGATIVE (NEGATIVE) Influenza Type B Ag NEGATIVE (NEGATIVE) SARS-CoV-2 (PCR) NEGATIVE (NEGATIVE) 06/16/20 06/16/20 06/17/20 Range/Units 20:30 23:30 05:30 WBC 5.0 (4.0-10.5) K/mm3 RBC 3.83 L (4.1-5.4) M/mm3 Hgb 12.0 (12.0-16.0) gm/dl Hct 38.9 (35-47) % MCV 101.6 H (78-100) fl MCH 31.3 (26-32) pg MCHC 30.8 L (32-36) g/dl RDW 14.2 H (11.5-14.0) % Plt Count 410 (150-450) K/mm3 MPV 8.8 (7.5-11.0) fl Gran % (36.0-66.0) % Eos # (Auto) (0-0.5) Absolute Lymphs (auto) (1.0-4.6) Absolute Monos (auto) (0.0-1.3) Lymphocytes % (24.0-44.0) % Monocytes % (0.0-12.0) % Eosinophils % (0.00-5.0) % Basophils % (0.0-0.4) % Absolute Granulocytes (1.4-6.9) Basophils # (0-0.4) PT (9.95-12.35) SECONDS INR (0.8-3.0) Sodium (137-145) mmol/L Potassium (3.5-5.1) mmol/L Chloride (98-107) mmol/L Carbon Dioxide (22-30) mmol/L Anion Gap (5-15) MEQ/L BUN (7-17) mg/dL Creatinine (0.52-1.04) mg/dL Estimated GFR ML/MIN Glucose (74-106) mg/dL Lactic Acid (0.4-2.0) Calcium (8.4-10.2) mg/dL Total Bilirubin (0.2-1.3) mg/dL AST (14-36) U/L ALT (0-35) U/L Alkaline Phosphatase (38-126) U/L Troponin I < 0.012 < 0.012 (0.000-0.034) ng/mL NT-Pro-B Natriuret Pep (0-450) pg/mL Serum Total Protein (6.3-8.2) g/dL Albumin (3.5-5.0) g/dL Procalcitonin (0.030-0.080) ng/mL Urine Color (YELLOW) Urine Appearance (CLEAR) Urine pH (5-6) Ur Specific [place] (1.005-1.025) Urine Protein (Negative) Urine Ketones (NEGATIVE) Urine Blood (0-5) Ed/ul Urine Nitrite (NEGATIVE) Urine Bilirubin (NEGATIVE) Urine Urobilinogen (0-1) mg/dL Ur Leukocyte Esterase (NEGATIVE) Urine WBC (Auto) (0-5) /HPF Urine RBC (Auto) (0-2) /HPF U Epithel Cells (Auto) (FEW) /HPF Urine Bacteria (Auto) (NEGATIVE) /HPF Urine Culture Reflexed (NO) Urine Glucose (NEGATIVE) mg/dL Influenza Type A Ag (NEGATIVE) Influenza Type B Ag (NEGATIVE) SARS-CoV-2 (PCR) (NEGATIVE) 06/17/20 Range/Units 05:30 WBC (4.0-10.5) K/mm3 RBC (4.1-5.4) M/mm3 Hgb (12.0-16.0) gm/dl Hct (35-47) % MCV (78-100) fl MCH (26-32) pg MCHC (32-36) g/dl RDW (11.5-14.0) % Plt Count (150-450) K/mm3 MPV (7.5-11.0) fl Gran % (36.0-66.0) % Eos # (Auto) (0-0.5) Absolute Lymphs (auto) (1.0-4.6) Absolute Monos (auto) (0.0-1.3) Lymphocytes % (24.0-44.0) % Monocytes % (0.0-12.0) % Eosinophils % (0.00-5.0) % Basophils % (0.0-0.4) % Absolute Granulocytes (1.4-6.9) Basophils # (0-0.4) PT (9.95-12.35) SECONDS INR (0.8-3.0) Sodium 137 (137-145) mmol/L Potassium 5.3 H (3.5-5.1) mmol/L Chloride 107 (98-107) mmol/L Carbon Dioxide 26 (22-30) mmol/L Anion Gap 9.7 (5-15) MEQ/L BUN 20 H (7-17) mg/dL Creatinine 0.72 (0.52-1.04) mg/dL Estimated GFR > 60.0 ML/MIN Glucose 128 H (74-106) mg/dL Lactic Acid (0.4-2.0) Calcium 9.0 (8.4-10.2) mg/dL Total Bilirubin 0.30 (0.2-1.3) mg/dL AST 24 (14-36) U/L ALT 29 (0-35) U/L Alkaline Phosphatase 98 (38-126) U/L Troponin I (0.000-0.034) ng/mL NT-Pro-B Natriuret Pep (0-450) pg/mL Serum Total Protein 6.9 (6.3-8.2) g/dL Albumin 3.7 (3.5-5.0) g/dL Procalcitonin (0.030-0.080) ng/mL Urine Color (YELLOW) Urine Appearance (CLEAR) Urine pH (5-6) Ur Specific [place] (1.005-1.025) Urine Protein (Negative) Urine Ketones (NEGATIVE) Urine Blood (0-5) Ed/ul Urine Nitrite (NEGATIVE) Urine Bilirubin (NEGATIVE) Urine Urobilinogen (0-1) mg/dL Ur Leukocyte Esterase (NEGATIVE) Urine WBC (Auto) (0-5) /HPF Urine RBC (Auto) (0-2) /HPF U Epithel Cells (Auto) (FEW) /HPF Urine Bacteria (Auto) (NEGATIVE) /HPF Urine Culture Reflexed (NO) Urine Glucose (NEGATIVE) mg/dL Influenza Type A Ag (NEGATIVE) Influenza Type B Ag (NEGATIVE) SARS-CoV-2 (PCR) (NEGATIVE) - Radiology Exams Ordered Rad Exams-Entire Visit: Radiology Procedures Category Date Time Status CHEST 1 VIEW (PORTABLE) Stat Exams 06/16/20 17:11 Completed - Procedures and Test Procedures and Tests throughout Hospitalization: Therapy Orders & Screens 06/16/20 17:43 Respiratory Therapy Assessment DAILY Comment: 06/16/20 19:06 Respiratory Therapy Consult ROUTINE Comment: Reason For Exam: 06/16/20 23:16 Smoking Cessation Education ONCE Comment: Diagnosis: COPD exacerbation Smoking Status: Current every day smoker How long have you smoked: years Do you dip or chew tobacco: No 06/17/20 07:00 Respiratory Therapy Assessment DAILY Comment: - Discharge Discharge Date: 06/17/20 Disposition: Against Medical Advice Condition: Stable Prescriptions: No Action Gabapentin 600 mg PO QID Follow up with: GASTON CAMPUZANO [Primary Care Provider] -
[2020-06-17] MEDS ORDERED: Zithromax 500 MG/ 250 ML NaCl Premix 500 MG/250 ML IVPB IV SCH (22:00)
== END 2020-06-17 10:30 | disposition left against medical advice (07) ==
LOC: ED 16:33 → MED SURG 19:55
PROVIDERS: ADMIT Family Medicine; ATTEND Family Medicine
DX: J44.1 Chronic obstructive pulmonary disease with (acute) exacerbation (principal); Z79.899 Other long term (current) drug therapy
CPT/HCPCS: 36000; 36415; 71045; 80053; 81001; 83605; 83880; 84145; 84484; 85025; 85027; 85610; 87040; 87400; 93005; 94640; 94760; 96365; 96374; 96375; 96376; 99285; G0378; U0003; J0456; J0696; J1100; J2405; J3010; A9270-GY

== ENCOUNTER 2020-07-09 13:51 | Emergency (ER) | payer OTHER ==
[2020-07-09] MEDS ORDERED: OXYCODONE-ACETAMINOPHEN 10-325 PO STA (14:01)
[2020-07-09 14:02] VITALS: PULSE 65; O2SAT 98
[2020-07-09] MEDS ORDERED: OXYCODONE-ACETAMINOPHEN 10-325 ONE (14:02)
--- NOTE | 2020-07-09 14:39 | ERPHSYRPT ---
- History of Present Illness Time Seen by Provider: 07/09/20 14:20 Source: patient Exam Limitations: no limitations Patient Subjective Stated Complaint: pt was tripped by dog and twisted right ankle yesterday Triage Nursing Assessment: pt walked in with a limp , has swelling to right ankle , no brusising noted Physician History: 45 years old female presented in the ER with chief complaint of right ankle/foot pain after she twisted yesterday. She is complaining of moderate intensity sharp pain which is aggravated with movement/ambulation and is having some difficulty weightbearing. Patient also report increasing swelling in the dorsum of foot and ankle specially in the lateral aspect of ankle. Does have history of foot and ankle fractures in the past. Method of Injury: twisted Occurred: yesterday Quality: constant, sharpness Severity of Pain-Max: moderate Severity of Pain-Current: moderate Lower Extremities Pain: foot: right, ankle: right Modifying Factors: Improves With: cold therapy, immobilization, rest. Worsens With: movement Allergies/Adverse Reactions: Sulfa (Sulfonamide Antibiotics) Allergy (Intermediate, Verified 06/16/20 21:33) Vomiting bee venom protein (honey bee) Allergy (Verified 06/16/20 21:33) methylprednisolone [From Solu-Medrol] Allergy (Verified 06/16/20 21:33) sumatriptan [From Imitrex] Allergy (Verified 06/16/20 21:33) ketorolac [From Toradol] Adverse Reaction (Verified 06/16/20 21:33) Nausea nitrofurantoin [From Macrobid] Adverse Reaction (Verified 06/16/20 21:33) tramadol Adverse Reaction (Verified 06/16/20 21:33) Nausea Home Medications: Gabapentin 600 mg PO QID 06/14/19 [History] Hx Tetanus, Diphtheria Vaccination/Date Given: No Hx Influenza Vaccination/Date Given: No Hx Pneumococcal Vaccination/Date Given: No Travel Risk - International Travel Have you traveled outside of the country in past 3 weeks: No - Coronavirus Screening Are you exhibiting any of the following symptoms?: No Close contact with a COVID-19 positive Pt in past 14-21 Days: No - Review of Systems Constitutional: No Symptoms Eyes: No Symptoms Ears, Nose, & Throat: No Symptoms Respiratory: No Symptoms Cardiac: No Symptoms Abdominal/Gastrointestinal: No Symptoms Genitourinary Symptoms: No Symptoms Musculoskeletal: Injury, Joint Pain, Joint Swelling Skin: No Symptoms Neurological: No Symptoms Psychological: No Symptoms Endocrine: No Symptoms Hematologic/Lymphatic: No Symptoms - Past Medical History Pertinent Past Medical History: Yes Neurological History: Migraines ENT History: No Pertinent History Cardiac History: No Pertinent History Respiratory History: No Pertinent History Endocrine Medical History: No Pertinent History Musculoskeletal History: Arthritis GI Medical History: Gallbladder Disease History: Other Psycho-Social History: Bipolar Female Reproductive Disorders: Other - Past Surgical History Past Surgical History: Yes Neuro Surgical History: No Pertinent History Cardiac: No Pertinent History Respiratory: No Pertinent History Gastrointestinal: Cholecystectomy, Hernia Repair Genitourinary: Kidney Surgery Musculoskeletal: No Pertinent History Female Surgical History: Hysterectomy Other Surgical History: skin cancer removed twice, hernia removal - Social History Smoking Status: Current every day smoker How long have you smoked: years Exposure to second hand smoke: Yes Drug Use: none Patient Lives Alone: No - Female History Hx Last Menstrual Period: hyster Hx Now: No - Nursing Vital Signs Nursing Vital Signs: Initial Vital Signs Temperature 98.1 F 07/09/20 13:57 Pulse Rate 65 07/09/20 13:57 Respiratory Rate 18 07/09/20 13:57 O2 Sat by Pulse Oximetry 98 07/09/20 13:57 Pain Scale Pain Intensity 8 - Physical Exam General Appearance: no apparent distress, alert Eyes, Ears, Nose, Throat Exam: normal ENT inspection Neck Exam: normal inspection, full range of motion Cardiovascular/Respiratory Exam: normal breath sounds, regular rate/rhythm Back Exam: normal inspection Legs Exam: bilateral leg: non-tender, normal inspection, normal range of motion Knees Exam: bilateral knee: non-tender, normal inspection, normal range of motion, no evidence of injury Ankle Exam: right ankle: bone tenderness (Lateral malleolus with associated soft tissue swelling), pain, soft tissue tenderness, swelling Foot Exam: right foot: bone tenderness (Anterolateral foot in the cuboid and fifth metacarpal proximal tenderness with swelling), pain, soft tissue tenderness, swelling Neuro/Tendon Exam: normal sensation, normal motor functions Mental Status Exam: alert, oriented x 3 Skin Exam: normal color SpO2 Interpretation: normal SpO2: 98 O2 Delivery: Room Air Ordered Tests: Active Orders 24 hr Category Date Time Status Cold Application STAT Care 07/09/20 13:59 Completed Splint STAT Care 07/09/20 14:42 Completed ANKLE (3 VIEWS) Stat Exams 07/09/20 14:14 Taken FOOT (MINIMUM 3 VIEWS) Stat Exams 07/09/20 14:01 Taken Medication Summary Discontinued Medications Generic Name Dose Route Start Last Admin Trade Name Yehuda PRN Reason Stop Dose Admin Oxycodone/Acetaminophen 1 tab 07/09/20 14:01 07/09/20 14:03 Oxycodone-Acetaminophen 10-325 PO 07/09/20 14:02 1 tab STAT STA Administration Oxycodone/Acetaminophen Confirm 07/09/20 14:02 Oxycodone-Acetaminophen 10-325 Administered 07/09/20 14:03 Dose 1 tab .ROUTE .STK-MED ONE - Progress Progress: improved, pain not gone completely Progress Note: 07/09/20 14:35 She is given symptomatic treatment for pain. X-rays ankle did not show any obvious fracture dislocation and x-rays foot showed avulsion fracture cuboid reviewed by me, official report is pending. Placed in a long boot and recommended outpatient follow-up. 07/09/20 16:05 Pain medication was sent to her pharmacy as patient reports she does not take any pain medicine but pharmacy called back that patient is on Suboxone so prescription was canceled. Counseled pt/family regarding: diagnosis, need for follow-up, rad results - Departure Departure Disposition: Home Clinical Impression: Foot fracture, right Qualifiers: Encounter type: initial encounter Fracture type: closed Qualified Code(s): S92.901A - Unspecified fracture of right foot, initial encounter for closed fracture Condition: Stable Critical Care Time: No Referrals: GASTON CAMPUZANO [Primary Care Provider] - Follow Up with PCP/3 days HOOD KHAN NP [NON-STAFF PHY W/O PRIVILEGES] - (tomorrow for re evaluation ) Instructions: Ankle Sprain (DC), Foot Avulsion Fracture (DC) Additional Instructions: Take pain medications as needed. Weightbearing only as tolerated. Follow-up with orthopedic/podiatry for reevaluation tomorrow. apply ice, avoid exertional activities. Prescriptions: Hydrocodone/APAP 5/325 [[place] 5/325 mg] 1 each PO Q6H PRN PRN 3 Days #12 tablet MDD 4 PRN Reason: Pain
[2020-07-09 14:50] VITALS: BP 134/101
--- NOTE | 2020-07-09 19:13 | XRAY ---
Indication: Pain following injury. Comparison: None 3 nonweightbearing views right foot demonstrates small cuboid accessory ossicle. No other bony, articular, or soft tissue abnormalities.
--- NOTE | 2020-07-09 19:13 | XRAY ---
Indication: Pain following injury. Comparison: None 3 view right ankle demonstrates soft tissue swelling and incidental small cuboid accessory ossicle. No other bony, articular, or soft tissue abnormalities.
== END 2020-07-09 14:45 | disposition home or self-care (01) ==
LOC: ED 13:51
DX: M25.571 Pain in right ankle and joints of right foot (principal); S92.901A Unspecified fracture of right foot, initial encounter for closed fracture; W01.0XXA Fall on same level from slipping, tripping and stumbling without subsequent striking against object, initial encounter; F17.210 Nicotine dependence, cigarettes, uncomplicated
CPT/HCPCS: 73610; 73630; 99284; L4386; A9270-GY

== ENCOUNTER 2020-09-02 15:43 | Emergency (ER) | payer OTHER ==
--- NOTE | 2020-09-02 15:45 | ERPHSYRPT ---
- History of Present Illness Time Seen by Provider: 09/02/20 15:45 Source: patient Exam Limitations: no limitations Physician History: This is a 45-year-old white female who was tripped by her dog yesterday and has pain in her right hip. She has been using ice pack Tylenol and ibuprofen per her report without any benefit. Patient ambulated to her emergency room bed without any difficulty. Timing/Duration: yesterday Occured at: home Context: tripped (Over her dog) Hip Pain Location: hip (R) Severity of Pain-Max: mild Severity of Pain-Current: mild Modifying Factors: Improves With: movement Symptoms prior to fall: none Associated Symptoms: denies symptoms Allergies/Adverse Reactions: Sulfa (Sulfonamide Antibiotics) Allergy (Intermediate, Verified 06/16/20 21:33) Vomiting bee venom protein (honey bee) Allergy (Verified 06/16/20 21:33) methylprednisolone [From Solu-Medrol] Allergy (Verified 06/16/20 21:33) sumatriptan [From Imitrex] Allergy (Verified 06/16/20 21:33) ketorolac [From Toradol] Adverse Reaction (Verified 06/16/20 21:33) Nausea nitrofurantoin [From Macrobid] Adverse Reaction (Verified 06/16/20 21:33) tramadol Adverse Reaction (Verified 06/16/20 21:33) Nausea Home Medications: Gabapentin 600 mg PO QID 06/14/19 [History] Buprenorphine HCl/Naloxone HCl [Suboxone 2 mg-0.5 mg Tablet Sl] 1 ea DAILY 07/10/20 [History] Hx Tetanus, Diphtheria Vaccination/Date Given: No Hx Influenza Vaccination/Date Given: No Hx Pneumococcal Vaccination/Date Given: No Travel Risk - International Travel Have you traveled outside of the country in past 3 weeks: No - Coronavirus Screening Are you exhibiting any of the following symptoms?: No Close contact with a COVID-19 positive Pt in past 14-21 Days: No - Vaccine Status Have you recieved a Covid-19 vaccination: No - Review of Systems Constitutional: No Symptoms Eyes: No Symptoms Ears, Nose, & Throat: No Symptoms Respiratory: No Symptoms Cardiac: No Symptoms Abdominal/Gastrointestinal: No Symptoms Genitourinary Symptoms: No Symptoms Musculoskeletal: Fall, Injury (Right hip) Skin: No Symptoms Neurological: No Symptoms Psychological: No Symptoms Endocrine: No Symptoms Hematologic/Lymphatic: No Symptoms Immunological/Allergic: No Symptoms All Other Systems: Reviewed and Negative - Past Medical History Pertinent Past Medical History: Yes Neurological History: Migraines ENT History: No Pertinent History Cardiac History: No Pertinent History Respiratory History: No Pertinent History Endocrine Medical History: No Pertinent History Musculoskeletal History: Arthritis GI Medical History: Gallbladder Disease History: Other Psycho-Social History: Bipolar Female Reproductive Disorders: Other - Past Surgical History Past Surgical History: Yes Neuro Surgical History: No Pertinent History Cardiac: No Pertinent History Respiratory: No Pertinent History Gastrointestinal: Cholecystectomy, Hernia Repair Genitourinary: Kidney Surgery Musculoskeletal: No Pertinent History Female Surgical History: Hysterectomy Other Surgical History: skin cancer removed twice, hernia removal - Social History Smoking Status: Current every day smoker How long have you smoked: years Exposure to second hand smoke: Yes Drug Use: none Patient Lives Alone: No - Nursing Vital Signs Nursing Vital Signs: Initial Vital Signs Temperature 98.6 F 09/02/20 15:44 Pulse Rate 74 09/02/20 15:44 Respiratory Rate 18 09/02/20 15:44 Blood Pressure 131/87 09/02/20 15:44 O2 Sat by Pulse Oximetry 96 09/02/20 15:44 Pain Scale Pain Intensity 9 - Physical Exam General Appearance: no apparent distress, alert, anxiety Eye Exam: PERRL/EOMI, eyes nml inspection Ears, Nose, Throat Exam: normal ENT inspection, moist mucous membranes Neck Exam: normal inspection, non-tender, supple, full range of motion Respiratory Exam: respiratory distress, airway intact, No chest tenderness, No lungs clear Gastrointestinal Exam: No tenderness Pelvic Exam: not done Rectal Exam: not done Back Exam: normal inspection, normal range of motion, No CVA tenderness, No vertebral tenderness Extremity Exam: normal inspection, normal range of motion, pelvis stable, tenderness (Right hip) Neurologic Exam: alert, oriented x 3, cooperative, supervisor opening and picking II-XII nml as tested, normal mood/affect, nml cerebellar function, nml station & gait, sensation nml Skin Exam: normal color, warm, dry Lymphatic Exam: No adenopathy SpO2 Interpretation: normal O2 Delivery: Room Air - Course Nursing assessment & vital signs reviewed: Yes Ordered Tests: Active Orders 24 hr Category Date Time Status HIP UNI (2V) INCL PEL IF DONE Stat Exams 09/02/20 16:18 Ordered - Progress Progress: unchanged Progress Note: 09/02/20 16:28 Patient now refusing x-ray of right hip. Counseled pt/family regarding: diagnosis, need for follow-up, rad results - Departure Departure Disposition: Home Clinical Impression: Right hip pain Condition: Stable Critical Care Time: No Referrals: GASTON CAMPUZANO [Primary Care Provider] - Additional Instructions: Ice pack to tender right hip 3 times a day for the next 48 hours. Use Tylenol and ibuprofen to help with pain control. Follow-up with your primary care physician on 09/04/2020 for further management
[2020-09-02 16:12] VITALS: BP 131/87; PULSE 74; O2SAT 96
== END 2020-09-02 16:45 | disposition home or self-care (01) ==
LOC: ED 15:43
DX: M25.551 Pain in right hip (principal)
CPT/HCPCS: 99283

== ENCOUNTER 2020-10-16 00:11 | Inpatient (IN) | payer OTHER ==
[2020-10-16] MEDS ORDERED: Pepcid 20 MG VIAL IV ONE ×2 (01:16→01:22)
[2020-10-16] MEDS ORDERED: Zofran 4 MG/2 ML VIAL IV ONE ×2 (01:16→03:12)
[2020-10-16] MEDS ORDERED: Hydromorphone 1 mg/ml Injection IV ONE ×3 (01:16→21:05)
[2020-10-16] MEDS ORDERED: Sodium Chloride 0.9% 1000 ML 1,000 ML IV STA (01:16)
[2020-10-16] MEDS ORDERED: Zofran 4 MG/2 ML VIAL ONE ×2 (01:22→03:24)
[2020-10-16] MEDS ORDERED: Sodium Chloride 0.9% 1000 ML 1,000 ML ONE (01:23)
[2020-10-16] MEDS ORDERED: Hydromorphone 1 mg/ml Injection ONE ×2 (01:23→03:24)
[2020-10-16 01:25] LABS: Absolute Neutrophil Ct (ANC) 5.68 (1.4-6.9); BASOPHIL % 0.1 % (0.0-0.4); Basophil (Absolute #) 0.01 (0-0.4); Eosinophil % 6.4 % (0.00-5.0); Eosinophil (Absolute #) 0.56 (0-0.5); Hematocrit 41.9 % (35-47); Hemoglobin 13.2 gm/dl (12.0-16.0); Lymphocyte (Absolute #) 1.82 (1.0-4.6); Lymphocytes % 20.8 % (24.0-44.0); Mean Cell Volume 98.4 fl (78-100); Mean Corpuscular Hgb Concent. 31.5 g/dl (32-36); Mean Platelet Volume 9.4 fl (7.5-11.0); Monocyte (Absolute #) 0.67 (0.0-1.3); Monocytes % 7.7 % (0.0-12.0); Platelet Count 386 K/mm3 (150-450); Red Blood Count 4.26 M/mm3 (4.1-5.4); Red Cell Distribution Width 13.5 % (11.5-14.0); White Blood Count 8.7 K/mm3 (4.0-10.5)
[2020-10-16 01:28] LABS: Appearance CLEAR (CLEAR); Bilirubin NEGATIVE (NEGATIVE); Blood MODERATE Ery/ul (0-5); Epithelial Cells RARE /HPF (FEW); Glucose NEGATIVE (NEGATIVE); Ketones NEGATIVE (NEGATIVE); Leukocyte Esterase NEGATIVE (NEGATIVE); Mucus SLIGHT /HPF (NEGATIVE); Nitrite NEGATIVE (NEGATIVE); Protein,Urine Dip NEGATIVE (Negative); RBC 51-100 /HPF (0-2); Specific Gravity 1.015 (1.005-1.025); Urobilinogen NEGATIVE mg/dL (0-1)
[2020-10-16 01:29] LABS: Bacteria NONE SEEN /HPF (NEGATIVE)
[2020-10-16 01:32] LABS: PROTIME 11.3 SECONDS (9.95-12.35)
[2020-10-16 01:34] LABS: PTT 36.3 SECONDS (25.3-37.0)
[2020-10-16 01:36] LABS: ALBUMIN 4.2 g/dL (3.5-5.0); ALKALINE PHOSPHATASE 121 U/L (38-126); AMYLASE 101 U/L (30-110); ANION GAP 14.5 MEQ/L (5-15); BLOOD UREA NITROGEN 21 mg/dL (7-17); CHLORIDE 109 mmol/L (98-107); Calcium 9.3 mg/dL (8.4-10.2); Carbon Dioxide 20 mmol/L (22-30); Creatinine 1 0.71 mg/dL (0.52-1.04); EST GLOMERULAR FILTRATION RATE > 60.0 ML/MIN; Glucose 76 mg/dL (74-106); LIPASE 76 U/L (23-300); Potassium 3.6 mmol/L (3.5-5.1); SGOT/AST 32 U/L (14-36); SGPT/ALT 19 U/L (0-35); SODIUM 140 mmol/L (137-145); Total Protein 7.3 g/dL (6.3-8.2)
--- NOTE | 2020-10-16 01:38 | ERPHSYRPT ---
- History of Present Illness Time Seen by Provider: 10/16/20 01:33 Historian: patient, family Exam Limitations: no limitations Patient Subjective Stated Complaint: pt states she has been having blood from her colostomy today and having pain in her abd- worse along incisiona nd around stoma Triage Nursing Assessment: pt alert and oriented answers questions approp. pt ambulatory with steady gait noted. respirations nonlabored. skin warm and dry. abd soft, pt reports tenderness with light palpation. bowel sounds present x4. colostomy to lt abd with gas present. small amount of dark red blood present in bag- pt reports bag was changed an hour prior to arrival. Physician History: pt had a previous bowel surgery for what sounds like an internal hernia complicated and requiring colostomy. SHe has pain tonight with blood in the colostomy bag. No blood thinners. tender RLQ without mass or rebound. No fever, N but no V. No cough or shortness of breath. Timing/Duration: today Activities at Onset: none Abdominal Pain Onset Location: RLQ, LLQ, generalized abdomen Pain Radiation: periumbilical Severity of Pain-Max: moderate Severity of Pain-Current: moderate Modifying Factors: Improves With: nothing Associated Symptoms: loss of appetite, nausea, other (bleeding) Previous symptoms: no prior history Allergies/Adverse Reactions: Sulfa (Sulfonamide Antibiotics) Allergy (Intermediate, Verified 10/16/20 00:51) Vomiting bee venom protein (honey bee) Allergy (Verified 10/16/20 00:51) methylprednisolone [From Solu-Medrol] Allergy (Verified 10/16/20 00:51) sumatriptan [From Imitrex] Allergy (Verified 10/16/20 00:51) ketorolac [From Toradol] Adverse Reaction (Verified 10/16/20 00:51) Nausea nitrofurantoin [From Macrobid] Adverse Reaction (Verified 10/16/20 00:51) tramadol Adverse Reaction (Verified 10/16/20 00:51) Nausea flu vaccine Allergy (Intermediate, Uncoded 10/16/20 00:51) Home Medications: Gabapentin 600 mg PO QID 06/14/19 [History] Bupropion HCl Xl 150 mg [Wellbutrin XL 150 MG] 150 mg PO DAILY 10/16/20 [History] Hx Tetanus, Diphtheria Vaccination/Date Given: Yes Hx Influenza Vaccination/Date Given: No Hx Pneumococcal Vaccination/Date Given: No Immunizations Up to Date: Yes Travel Risk - International Travel Have you traveled outside of the country in past 3 weeks: No - Coronavirus Screening Are you exhibiting any of the following symptoms?: No Close contact with a COVID-19 positive Pt in past 14-21 Days: No - Vaccine Status Have you recieved a Covid-19 vaccination: No - Review of Systems Constitutional: No Fever, No Chills Eyes: No Symptoms Ears, Nose, & Throat: No Symptoms Respiratory: No Cough, No Dyspnea Cardiac: No Chest Pain, No Edema, No Syncope Abdominal/Gastrointestinal: No Abdominal Pain, No Nausea, No Vomiting, No Diarrhea Genitourinary Symptoms: No Dysuria Musculoskeletal: No Back Pain, No Neck Pain Skin: No Rash Neurological: No Dizziness, No Focal Weakness, No Sensory Changes Psychological: No Symptoms Endocrine: No Symptoms All Other Systems: Reviewed and Negative - Past Medical History Pertinent Past Medical History: Yes Neurological History: Migraines ENT History: No Pertinent History Cardiac History: No Pertinent History Respiratory History: No Pertinent History Endocrine Medical History: No Pertinent History Musculoskeletal History: Arthritis, Fibromyalgia GI Medical History: Gallbladder Disease History: Other Psycho-Social History: Bipolar Female Reproductive Disorders: Other Other Medical History: kidney stones - Past Surgical History Past Surgical History: Yes Neuro Surgical History: No Pertinent History Cardiac: No Pertinent History Respiratory: No Pertinent History Gastrointestinal: Cholecystectomy, Hernia Repair Genitourinary: Kidney Surgery Musculoskeletal: No Pertinent History Female Surgical History: Hysterectomy Other Surgical History: skin cancer removed twice, hernia removal. ruptured hernia- colostomy - Social History Smoking Status: Current every day smoker How long have you smoked: years Exposure to second hand smoke: Yes Drug Use: none Patient Lives Alone: No - Female History Hx Last Menstrual Period: hyster Hx Now: No - Nursing Vital Signs Nursing Vital Signs: Initial Vital Signs Temperature 98.1 F 10/16/20 00:40 Pulse Rate 85 10/16/20 00:40 Respiratory Rate 16 10/16/20 00:40 Blood Pressure 129/92 10/16/20 00:40 O2 Sat by Pulse Oximetry 97 10/16/20 00:40 Pain Scale Pain Intensity 6 - Physical Exam General Appearance: no apparent distress, alert Eye Exam: PERRL/EOMI, eyes nml inspection Ears, Nose, Throat Exam: normal ENT inspection, pharynx normal, moist mucous membranes Neck Exam: normal inspection, non-tender, supple, full range of motion Respiratory Exam: normal breath sounds, lungs clear, No respiratory distress Cardiovascular Exam: regular rate/rhythm, normal heart sounds Gastrointestinal/Abdomen Exam: soft, tenderness, guarding, No mass Pelvic Exam: deferred Rectal Exam: deferred Back Exam: normal inspection, normal range of motion, No CVA tenderness, No vertebral tenderness Extremity Exam: normal inspection, normal range of motion, pelvis stable Neurologic Exam: alert, oriented x 3, cooperative, normal mood/affect, nml cerebellar function, sensation nml, No motor deficits Skin Exam: normal color, warm, dry SpO2: 97 - Course Nursing assessment & vital signs reviewed: Yes Ordered Tests: Active Orders 24 hr Category Date Time Status IV Insertion STAT Care 10/16/20 01:16 Active NPO (ED) STAT Care 10/16/20 01:16 Active ABDOMEN AND PELVIS W/0 CONTRAS [CT] Stat Exams 10/16/20 01:17 Taken AMYLASE Stat Lab 10/16/20 01:20 Completed CBC W DIFF Stat Lab 10/16/20 01:20 Completed CMP Stat Lab 10/16/20 01:20 Completed FECAL OCCULT BLOOD - SCREENING Stat Lab 10/16/20 01:54 Completed HCG QUALITATIVE,SERUM Stat Lab 10/16/20 01:20 Completed LIPASE Stat Lab 10/16/20 01:20 Completed Lactic Acid Stat Lab 10/16/20 01:15 Completed PROTIME WITH INR Stat Lab 10/16/20 01:20 Completed PTT Stat Lab 10/16/20 01:20 Completed UA W/RFX UR CULTURE Stat Lab 10/16/20 01:20 Completed Medication Summary Discontinued Medications Generic Name Dose Route Start Last Admin Trade Name Freq PRN Reason Stop Dose Admin Diphenhydramine HCl 25 mg 10/16/20 03:12 Benadryl 50 Mg/Ml IV 10/16/20 03:13 STAT ONE Diphenhydramine HCl Confirm 10/16/20 03:24 Benadryl 50 Mg/Ml Administered 10/16/20 03:25 Dose 50 mg .ROUTE .STK-MED ONE Famotidine 20 mg 10/16/20 01:16 10/16/20 01:44 Pepcid 20 Mg Vial IV 10/16/20 01:17 20 mg STAT ONE Administration Famotidine Confirm 10/16/20 01:22 Pepcid 20 Mg Vial Administered 10/16/20 01:23 Dose 20 mg IV .STK-MED ONE Hydromorphone HCl 1 mg 10/16/20 01:16 10/16/20 01:44 Hydromorphone 1 Mg/Ml Injection IV 10/16/20 01:17 1 mg STAT ONE Administration Hydromorphone HCl Confirm 10/16/20 01:23 Hydromorphone 1 Mg/Ml Injection Administered 10/16/20 01:24 Dose 1 mg .ROUTE .STK-MED ONE Hydromorphone HCl 1 mg 10/16/20 03:12 Hydromorphone 1 Mg/Ml Injection IV 10/16/20 03:13 STAT ONE Hydromorphone HCl Confirm 10/16/20 03:24 Hydromorphone 1 Mg/Ml Injection Administered 10/16/20 03:25 Dose 1 mg .ROUTE .STK-MED ONE Sodium Chloride 1,000 mls @ 999 mls/hr 10/16/20 01:16 10/16/20 01:47 Sodium Chloride 0.9% 1000 Ml IV 10/16/20 02:16 999 mls/hr .Q1H1M STA Administration Sodium Chloride Confirm 10/16/20 01:23 Sodium Chloride 0.9% 1000 Ml Administered 10/16/20 01:24 Dose 1,000 mls @ ud .ROUTE .STK-MED ONE Ondansetron HCl 4 mg 10/16/20 01:16 10/16/20 01:44 Zofran 4 Mg/2 Ml Vial IV 10/16/20 01:17 4 mg STAT ONE Administration Ondansetron HCl Confirm 10/16/20 01:22 Zofran 4 Mg/2 Ml Vial Administered 10/16/20 01:23 Dose 4 mg .ROUTE .STK-MED ONE Ondansetron HCl 4 mg 10/16/20 03:12 Zofran 4 Mg/2 Ml Vial IV 10/16/20 03:13 STAT ONE Ondansetron HCl Confirm 10/16/20 03:24 Zofran 4 Mg/2 Ml Vial Administered 10/16/20 03:25 Dose 4 mg .ROUTE .STK-MED ONE Pantoprazole Sodium 40 mg 10/16/20 03:12 Protonix 40 Mg Iv IV 10/16/20 03:13 STAT ONE Pantoprazole Sodium Confirm 10/16/20 03:24 Protonix 40 Mg Iv Administered 10/16/20 03:25 Dose 40 mg IV .STK-MED ONE Prochlorperazine Edisylate 10 mg 10/16/20 03:12 Compazine 10 Mg/2 Ml IM 10/16/20 03:13 STAT ONE Prochlorperazine Edisylate Confirm 10/16/20 03:24 Compazine 10 Mg/2 Ml Administered 10/16/20 03:25 Dose 10 mg .ROUTE .STK-MED ONE Lab/Rad Data: Laboratory Result Diagrams 10/16/20 01:20 10/16/20 01:20 Laboratory Results 10/16/20 10/16/20 10/16/20 Range/Units 01:54 01:20 01:20 WBC (4.0-10.5) K/mm3 RBC (4.1-5.4) M/mm3 Hgb (12.0-16.0) gm/dl Hct (35-47) % MCV (78-100) fl MCH (26-32) pg MCHC (32-36) g/dl RDW (11.5-14.0) % Plt Count (150-450) K/mm3 MPV (7.5-11.0) fl Gran % (36.0-66.0) % Eos # (Auto) (0-0.5) Absolute Lymphs (auto) (1.0-4.6) Absolute Monos (auto) (0.0-1.3) Lymphocytes % (24.0-44.0) % Monocytes % (0.0-12.0) % Eosinophils % (0.00-5.0) % Basophils % (0.0-0.4) % Absolute Granulocytes (1.4-6.9) Basophils # (0-0.4) PT 11.3 (9.95-12.35) SECONDS INR 1.00 (0.8-3.0) APTT 36.3 (25.3-37.0) SECONDS Sodium (137-145) mmol/L Potassium (3.5-5.1) mmol/L Chloride (98-107) mmol/L Carbon Dioxide (22-30) mmol/L Anion Gap (5-15) MEQ/L BUN (7-17) mg/dL Creatinine (0.52-1.04) mg/dL Estimated GFR ML/MIN Glucose (74-106) mg/dL Lactic Acid (0.4-2.0) Calcium (8.4-10.2) mg/dL Total Bilirubin (0.2-1.3) mg/dL AST (14-36) U/L ALT (0-35) U/L Alkaline Phosphatase (38-126) U/L Serum Total Protein (6.3-8.2) g/dL Albumin (3.5-5.0) g/dL Amylase (30-110) U/L Lipase (23-300) U/L Serum , Qual (Negative) Urine Color YELLOW (YELLOW) Urine Appearance CLEAR (CLEAR) Urine pH 6.0 (5-6) Ur Specific Talmage 1.015 (1.005-1.025) Urine Protein NEGATIVE (Negative) Urine Ketones NEGATIVE (NEGATIVE) Urine Blood MODERATE (0-5) Ed/ul Urine Nitrite NEGATIVE (NEGATIVE) Urine Bilirubin NEGATIVE (NEGATIVE) Urine Urobilinogen NEGATIVE (0-1) mg/dL Ur Leukocyte Esterase NEGATIVE (NEGATIVE) Urine WBC (Auto) 3-5 (0-5) /HPF Urine RBC (Auto) 51-100 (0-2) /HPF U Epithel Cells (Auto) RARE (FEW) /HPF Urine Bacteria (Auto) NONE SEEN (NEGATIVE) /HPF Urine Mucus (Auto) SLIGHT (NEGATIVE) /HPF Urine Culture Reflexed NO (NO) Urine Glucose NEGATIVE (NEGATIVE) mg/dL Stool Occult Blood POSITIVE A (NEGATIVE) 10/16/20 10/16/20 10/16/20 Range/Units 01:20 01:20 01:20 WBC 8.7 (4.0-10.5) K/mm3 RBC 4.26 (4.1-5.4) M/mm3 Hgb 13.2 (12.0-16.0) gm/dl Hct 41.9 (35-47) % MCV 98.4 (78-100) fl MCH 31.0 (26-32) pg MCHC 31.5 L (32-36) g/dl RDW 13.5 (11.5-14.0) % Plt Count 386 (150-450) K/mm3 MPV 9.4 (7.5-11.0) fl Gran % 65.0 (36.0-66.0) % Eos # (Auto) 0.56 H (0-0.5) Absolute Lymphs (auto) 1.82 (1.0-4.6) Absolute Monos (auto) 0.67 (0.0-1.3) Lymphocytes % 20.8 L (24.0-44.0) % Monocytes % 7.7 (0.0-12.0) % Eosinophils % 6.4 H (0.00-5.0) % Basophils % 0.1 (0.0-0.4) % Absolute Granulocytes 5.68 (1.4-6.9) Basophils # 0.01 (0-0.4) PT (9.95-12.35) SECONDS INR (0.8-3.0) APTT (25.3-37.0) SECONDS Sodium 140 (137-145) mmol/L Potassium 3.6 (3.5-5.1) mmol/L Chloride 109 H (98-107) mmol/L Carbon Dioxide 20 L (22-30) mmol/L Anion Gap 14.5 (5-15) MEQ/L BUN 21 H (7-17) mg/dL Creatinine 0.71 (0.52-1.04) mg/dL Estimated GFR > 60.0 ML/MIN Glucose 76 (74-106) mg/dL Lactic Acid (0.4-2.0) Calcium 9.3 (8.4-10.2) mg/dL Total Bilirubin 0.30 (0.2-1.3) mg/dL AST 32 (14-36) U/L ALT 19 (0-35) U/L Alkaline Phosphatase 121 (38-126) U/L Serum Total Protein 7.3 (6.3-8.2) g/dL Albumin 4.2 (3.5-5.0) g/dL Amylase 101 (30-110) U/L Lipase 76 (23-300) U/L Serum , Qual NEGATIVE (Negative) Urine Color (YELLOW) Urine Appearance (CLEAR) Urine pH (5-6) Ur Specific Talmage (1.005-1.025) Urine Protein (Negative) Urine Ketones (NEGATIVE) Urine Blood (0-5) Ed/ul Urine Nitrite (NEGATIVE) Urine Bilirubin (NEGATIVE) Urine Urobilinogen (0-1) mg/dL Ur Leukocyte Esterase (NEGATIVE) Urine WBC (Auto) (0-5) /HPF Urine RBC (Auto) (0-2) /HPF U Epithel Cells (Auto) (FEW) /HPF Urine Bacteria (Auto) (NEGATIVE) /HPF Urine Mucus (Auto) (NEGATIVE) /HPF Urine Culture Reflexed (NO) Urine Glucose (NEGATIVE) mg/dL Stool Occult Blood (NEGATIVE) 10/16/20 Range/Units 01:15 WBC (4.0-10.5) K/mm3 RBC (4.1-5.4) M/mm3 Hgb (12.0-16.0) gm/dl Hct (35-47) % MCV (78-100) fl MCH (26-32) pg MCHC (32-36) g/dl RDW (11.5-14.0) % Plt Count (150-450) K/mm3 MPV (7.5-11.0) fl Gran % (36.0-66.0) % Eos # (Auto) (0-0.5) Absolute Lymphs (auto) (1.0-4.6) Absolute Monos (auto) (0.0-1.3) Lymphocytes % (24.0-44.0) % Monocytes % (0.0-12.0) % Eosinophils % (0.00-5.0) % Basophils % (0.0-0.4) % Absolute Granulocytes (1.4-6.9) Basophils # (0-0.4) PT (9.95-12.35) SECONDS INR (0.8-3.0) APTT (25.3-37.0) SECONDS Sodium (137-145) mmol/L Potassium (3.5-5.1) mmol/L Chloride (98-107) mmol/L Carbon Dioxide (22-30) mmol/L Anion Gap (5-15) MEQ/L BUN (7-17) mg/dL Creatinine (0.52-1.04) mg/dL Estimated GFR ML/MIN Glucose (74-106) mg/dL Lactic Acid 1.1 (0.4-2.0) Calcium (8.4-10.2) mg/dL Total Bilirubin (0.2-1.3) mg/dL AST (14-36) U/L ALT (0-35) U/L Alkaline Phosphatase (38-126) U/L Serum Total Protein (6.3-8.2) g/dL Albumin (3.5-5.0) g/dL Amylase (30-110) U/L Lipase (23-300) U/L Serum , Qual (Negative) Urine Color (YELLOW) Urine Appearance (CLEAR) Urine pH (5-6) Ur Specific Talmage (1.005-1.025) Urine Protein (Negative) Urine Ketones (NEGATIVE) Urine Blood (0-5) Ed/ul Urine Nitrite (NEGATIVE) Urine Bilirubin (NEGATIVE) Urine Urobilinogen (0-1) mg/dL Ur Leukocyte Esterase (NEGATIVE) Urine WBC (Auto) (0-5) /HPF Urine RBC (Auto) (0-2) /HPF U Epithel Cells (Auto) (FEW) /HPF Urine Bacteria (Auto) (NEGATIVE) /HPF Urine Mucus (Auto) (NEGATIVE) /HPF Urine Culture Reflexed (NO) Urine Glucose (NEGATIVE) mg/dL Stool Occult Blood (NEGATIVE) - Progress Progress: improved, re-examined Progress Note: 10/16/20 03:[address] Oreilly who will place in on medicine service and Dr. Ras Eagle who will consult to evaluate for colonoscopy for evaluation of GI bleed, and with pt who also wishes to come into the hospital. Discussed with .: Dixie, Other (Liv Eagle) Will see patient in: hospital (observation) Counseled pt/family regarding: lab results, diagnosis, need for follow-up, rad results - Departure Departure Disposition: Observation Clinical Impression: Abdominal pain, Hematuria, Nephrolithiasis, GI bleed Condition: Good Critical Care Time: No Referrals: GASTON CAMPUZANO [Primary Care Provider] -
[2020-10-16] MEDS ORDERED: PROTONIX 40 MG IV IV ONE ×2 (03:12→03:24)
[2020-10-16] MEDS ORDERED: BENADRYL 50 MG/ML IV ONE (03:12)
[2020-10-16] MEDS ORDERED: Compazine 10 MG/2 ML IM ONE (03:12)
[2020-10-16] MEDS ORDERED: Compazine 10 MG/2 ML ONE (03:24)
[2020-10-16] MEDS ORDERED: BENADRYL 50 MG/ML ONE (03:24)
[2020-10-16 04:31] LABS: INFLUENZA A NEGATIVE (NEGATIVE); INFLUENZA B NEGATIVE (NEGATIVE); RESPIRATORY SYNCTIAL VIRUS NEGATIVE (Negative)
[2020-10-16] MEDS ORDERED: Compazine 10 MG/2 ML IM PRN (04:42)
[2020-10-16] MEDS ORDERED: HUMULIN R SQ PRN (04:42)
[2020-10-16] MEDS ORDERED: BENADRYL 50 MG/ML IV PRN (04:42)
[2020-10-16] MEDS: DILAUDID 1 MG/1ML PCA IV PRN (06:15)
[2020-10-16] MEDS: Sodium Chloride 0.9% 1000 ML 1,000 ML IV SCH ×2 (06:15→18:19)
[2020-10-16 06:38] LABS: ABO TYPING O; Antibody Screen NEGATIVE (NEGATIVE); RH TYPING POSITIVE
[2020-10-16 06:41] LABS: CROSS MATCH (PRBC) COMPATIBLE (COMPATIBLE)
--- NOTE | 2020-10-16 07:43 | XRAY ---
Indication: Left and right lower quadrant pain. Nausea. Blood in colostomy. Multiple contiguous axial images obtained through the abdomen and pelvis without contrast. Comparison: February 29, 2020. Lung bases again a few tiny bilateral calcified granuloma. No infiltrate or effusion. Heart is not enlarged. Noncontrasted stomach and bowel loops remain nonobstructed. There remains left lower quadrant colostomy with new small bowel loops herniating through the abdominal wall defect. No free fluid/air. Right kidney again absent. Left kidney again demonstrates 2 nonobstructing punctate calculi. Stable incidental cholecystectomy, splenic calcified granulomas, and IVC duplication. Remaining liver, pancreas, spleen, left kidney, left ureter, and bladder are unremarkable for noncontrast exam. There remains minimal aortoiliac calcifications without AAA. Osseous structures intact again with lumbosacral degenerative disc disease. Impression: 1. Again left lower quadrant colostomy with new peristomal herniated bowel loops without complications. 2. Stable nonobstructing left renal micro-calculi, absent right kidney, IVC duplication, and old granulomatous disease. 3. Remaining CT abdomen/pelvis without contrast exam is negative. Comment: Preliminary interpretation was made by [facility]. No critical discrepancy.
[2020-10-16] MEDS: PROTONIX 40 MG IV IV SCH (10:18)
[2020-10-16] MEDS: Zofran 4 MG/2 ML VIAL IV PRN ×2 (10:24→16:34)
[2020-10-16] MEDS ORDERED: PROMETHEGAN RC PRN (11:34)
[2020-10-16] MEDS: Wellbutrin XL 150 MG PO SCH (12:15)
[2020-10-16] MEDS: NEURONTIN 300 MG PO SCH ×3 (12:15→21:50)
--- NOTE | 2020-10-16 12:15 | PCM.HP ---
History of Present Illness - Chief Complaint Chief Complaint: abdominal pain History of Present Illness: is a 45 year old female pt of Dr. Zuluaga with hx nephrolithiasis, congenital single kidney/IVC duplication, and hematuria who was admitted through ER for abdominal pain and bleeding from the stoma. She had a bowel resection in October [address] Buckley in [facility] apparently for ruptured hernia (however was dx on Friday and surgery was on Fri, per pt) and has had numerous issues postsurgically ever since (has been seeing Dr. Roberto Eagle). She started having more pain 2-3 weeks ago, and it's been worse, with N, for the past 1 week. Unsure if she had any fever. Has been having blood out of the stoma for the past 3 days. She is at times a poor historian and it's unclear if she had any increased output from the stoma. Pain is central abdominal and to the R of the stoma, including the incision; 7- 8/10. Sharp; worse with pressure to the area, a little better with heating pad. Her nausea is better with zofran but still present; she has failed scopolamine in the past but has done well on phenergan. - Review of Systems Respiratory: Short Of Breath (chronic) Cardiac: Edema (LE; worse x 3 weeks) Abdominal/Gastrointestinal: Abdominal Pain, Nausea, Hematochezia Genitourinary Symptoms: Hematuria (gross; chronic) Psychological: Anxiety, Depression, No Suicidal Ideations, No Homicidal Ideations All Other Systems: Reviewed and Negative Medications & Allergies Home Medications: Home Medication List Gabapentin 600 mg PO QID 06/14/19 [History Confirmed 10/16/20] Bupropion HCl Xl 150 mg [Wellbutrin XL 150 MG] 150 mg PO DAILY 10/16/20 [History Confirmed 10/16/20] Cariprazine HCl [Vraylar] 3 mg PO HS 10/16/20 [History Confirmed 10/16/20] Allergies/Adverse Reactions: Allergies Allergy/AdvReac Type Severity Reaction Status Date / Time Sulfa (Sulfonamide Allergy Intermediate Vomiting Verified 10/16/20 00:51 Antibiotics) bee venom protein (honey bee) Allergy Verified 10/16/20 00:51 methylprednisolone Allergy Verified 10/16/20 00:51 [From Solu-Medrol] sumatriptan [From Imitrex] Allergy Verified 10/16/20 00:51 ketorolac [From Toradol] AdvReac Nausea Verified 10/16/20 00:51 nitrofurantoin AdvReac Verified 10/16/20 00:51 [From Macrobid] tramadol AdvReac Nausea Verified 10/16/20 00:51 flu vaccine Allergy Intermediate Uncoded 10/16/20 00:51 - Past Medical History Past Medical History: Yes Neurological History: Migraines ENT History: No Pertinent History Cardiac History: No Pertinent History Respiratory History: No Pertinent History Endocrine Medical History: No Pertinent History Musculoskelatal History: Fibromyalgia GI Medical History: Other History: Other Pyscho-Social History: Bipolar Reproductive Disorders: No Pertinent History Comment: kidney stones - Female History Hx Last Menstrual Period: hyster Are you now?: No - Past Surgical History Past Surgical History: Yes Neuro Surgical History: No Pertinent History Cardiac History: No Pertinent History Respiratory Surgery: No Pertinent History GI Surgical History: Bowel Surgery, Cholecystectomy Genitourinary Surgical Hx: No Pertinent History Musculskeletal Surgical Hx: No Pertinent History Female Surgical History: Hysterectomy, Section Other Surgical History: skin cancer removed twice, hernia removal. ruptured hernia- colostomy - Social History Smoking Status: Current every day smoker How long have you smoked: years Exposure to second hand smoke: Yes Alcohol: Occasionally Drug Use: none - Physical Exam Vital Signs: Vital Signs - 24 hr Temp Pulse Resp BP Pulse Ox 10/16/20 10:00 98.1 F 67 14 96/52 93 L 10/16/20 08:00 97.8 F 59 L 20 84/52 10/16/20 06:15 93 L 10/16/20 06:00 97.1 F 59 L 17 102/58 93 L 10/16/20 05:32 97.1 F 59 L 17 102/58 93 L 10/16/20 03:45 97 10/16/20 03:07 84 16 104/66 94 L 10/16/20 02:36 69 16 106/67 94 L 10/16/20 01:48 71 16 121/64 95 10/16/20 00:40 98.1 F 85 16 129/92 97 Oxygen-Last 24 hours Oxygen Flowrate (L/min)-RT 92 General Appearance: mild distress, other (somewhat somnolent) Neurologic Exam: cooperative, No disoriented, No confusion Eye Exam: eyes nml inspection Ears, Nose, Throat Exam: moist mucous membranes Neck Exam: normal inspection Respiratory Exam: prolonged expirations, wheezing (throughout), No crackles/rales, No rhonchi Cardiovascular Exam: regular rate/rhythm, normal heart sounds, No murmur Gastrointestinal/Abdomen Exam: soft, normal bowel sounds, tenderness (througho ut; worse periumbilical), other (stoma present to L of umbilical area in mid abd.), No distention, No mass, No guarding, No rebound Back Exam: normal inspection, CVA tenderness (bilat, marked), No rash Extremity Exam: No pedal edema, No swelling Skin Exam: normal color, warm, dry, No rash Results - Labs Lab/Micro Results: Lab Results-Last 24 Hours 10/16/20 10/16/20 10/16/20 Range/Units 01:15 01:20 01:20 WBC 8.7 (4.0-10.5) K/mm3 RBC 4.26 (4.1-5.4) M/mm3 Hgb 13.2 (12.0-16.0) gm/dl Hct 41.9 (35-47) % MCV 98.4 (78-100) fl MCH 31.0 (26-32) pg MCHC 31.5 L (32-36) g/dl RDW 13.5 (11.5-14.0) % Plt Count 386 (150-450) K/mm3 MPV 9.4 (7.5-11.0) fl Gran % 65.0 (36.0-66.0) % Eos # (Auto) 0.56 H (0-0.5) Absolute Lymphs (auto) 1.82 (1.0-4.6) Absolute Monos (auto) 0.67 (0.0-1.3) Lymphocytes % 20.8 L (24.0-44.0) % Monocytes % 7.7 (0.0-12.0) % Eosinophils % 6.4 H (0.00-5.0) % Basophils % 0.1 (0.0-0.4) % Absolute Granulocytes 5.68 (1.4-6.9) Basophils # 0.01 (0-0.4) PT (9.95-12.35) SECONDS INR (0.8-3.0) APTT (25.3-37.0) SECONDS Sodium 140 (137-145) mmol/L Potassium 3.6 (3.5-5.1) mmol/L Chloride 109 H (98-107) mmol/L Carbon Dioxide 20 L (22-30) mmol/L Anion Gap 14.5 (5-15) MEQ/L BUN 21 H (7-17) mg/dL Creatinine 0.71 (0.52-1.04) mg/dL Estimated GFR > 60.0 ML/MIN Glucose 76 (74-106) mg/dL Lactic Acid 1.1 (0.4-2.0) Calcium 9.3 (8.4-10.2) mg/dL Total Bilirubin 0.30 (0.2-1.3) mg/dL AST 32 (14-36) U/L ALT 19 (0-35) U/L Alkaline Phosphatase 121 (38-126) U/L Serum Total Protein 7.3 (6.3-8.2) g/dL Albumin 4.2 (3.5-5.0) g/dL Amylase 101 (30-110) U/L Lipase 76 (23-300) U/L Serum , Qual (Negative) Urine Color (YELLOW) Urine Appearance (CLEAR) Urine pH (5-6) Ur Specific [place] (1.005-1.025) Urine Protein (Negative) Urine Ketones (NEGATIVE) Urine Blood (0-5) Ed/ul Urine Nitrite (NEGATIVE) Urine Bilirubin (NEGATIVE) Urine Urobilinogen (0-1) mg/dL Ur Leukocyte Esterase (NEGATIVE) Urine WBC (Auto) (0-5) /HPF Urine RBC (Auto) (0-2) /HPF U Epithel Cells (Auto) (FEW) /HPF Urine Bacteria (Auto) (NEGATIVE) /HPF Urine Mucus (Auto) (NEGATIVE) /HPF Urine Culture Reflexed (NO) Urine Glucose (NEGATIVE) mg/dL Stool Occult Blood (NEGATIVE) Influenza Type A Ag (NEGATIVE) Influenza Type B Ag (NEGATIVE) RSV (PCR) (Negative) SARS-CoV-2 (PCR) (NEGATIVE) ABO Group Rh Factor Antibody Screen (NEGATIVE) Crossmatch (COMPATIBLE) 10/16/20 10/16/20 10/16/20 Range/Units 01:20 01:20 01:20 WBC (4.0-10.5) K/mm3 RBC (4.1-5.4) M/mm3 Hgb (12.0-16.0) gm/dl Hct (35-47) % MCV (78-100) fl MCH (26-32) pg MCHC (32-36) g/dl RDW (11.5-14.0) % Plt Count (150-450) K/mm3 MPV (7.5-11.0) fl Gran % (36.0-66.0) % Eos # (Auto) (0-0.5) Absolute Lymphs (auto) (1.0-4.6) Absolute Monos (auto) (0.0-1.3) Lymphocytes % (24.0-44.0) % Monocytes % (0.0-12.0) % Eosinophils % (0.00-5.0) % Basophils % (0.0-0.4) % Absolute Granulocytes (1.4-6.9) Basophils # (0-0.4) PT 11.3 (9.95-12.35) SECONDS INR 1.00 (0.8-3.0) APTT 36.3 (25.3-37.0) SECONDS Sodium (137-145) mmol/L Potassium (3.5-5.1) mmol/L Chloride (98-107) mmol/L Carbon Dioxide (22-30) mmol/L Anion Gap (5-15) MEQ/L BUN (7-17) mg/dL Creatinine (0.52-1.04) mg/dL Estimated GFR ML/MIN Glucose (74-106) mg/dL Lactic Acid (0.4-2.0) Calcium (8.4-10.2) mg/dL Total Bilirubin (0.2-1.3) mg/dL AST (14-36) U/L ALT (0-35) U/L Alkaline Phosphatase (38-126) U/L Serum Total Protein (6.3-8.2) g/dL Albumin (3.5-5.0) g/dL Amylase (30-110) U/L Lipase (23-300) U/L Serum , Qual NEGATIVE (Negative) Urine Color YELLOW (YELLOW) Urine Appearance CLEAR (CLEAR) Urine pH 6.0 (5-6) Ur Specific [place] 1.015 (1.005-1.025) Urine Protein NEGATIVE (Negative) Urine Ketones NEGATIVE (NEGATIVE) Urine Blood MODERATE (0-5) Ed/ul Urine Nitrite NEGATIVE (NEGATIVE) Urine Bilirubin NEGATIVE (NEGATIVE) Urine Urobilinogen NEGATIVE (0-1) mg/dL Ur Leukocyte Esterase NEGATIVE (NEGATIVE) Urine WBC (Auto) 3-5 (0-5) /HPF Urine RBC (Auto) 51-100 (0-2) /HPF U Epithel Cells (Auto) RARE (FEW) /HPF Urine Bacteria (Auto) NONE SEEN (NEGATIVE) /HPF Urine Mucus (Auto) SLIGHT (NEGATIVE) /HPF Urine Culture Reflexed NO (NO) Urine Glucose NEGATIVE (NEGATIVE) mg/dL Stool Occult Blood (NEGATIVE) Influenza Type A Ag (NEGATIVE) Influenza Type B Ag (NEGATIVE) RSV (PCR) (Negative) SARS-CoV-2 (PCR) (NEGATIVE) ABO Group Rh Factor Antibody Screen (NEGATIVE) Crossmatch (COMPATIBLE) 10/16/20 10/16/20 10/16/20 Range/Units 01:54 03:53 04:50 WBC (4.0-10.5) K/mm3 RBC (4.1-5.4) M/mm3 Hgb (12.0-16.0) gm/dl Hct (35-47) % MCV (78-100) fl MCH (26-32) pg MCHC (32-36) g/dl RDW (11.5-14.0) % Plt Count (150-450) K/mm3 MPV (7.5-11.0) fl Gran % (36.0-66.0) % Eos # (Auto) (0-0.5) Absolute Lymphs (auto) (1.0-4.6) Absolute Monos (auto) (0.0-1.3) Lymphocytes % (24.0-44.0) % Monocytes % (0.0-12.0) % Eosinophils % (0.00-5.0) % Basophils % (0.0-0.4) % Absolute Granulocytes (1.4-6.9) Basophils # (0-0.4) PT (9.95-12.35) SECONDS INR (0.8-3.0) APTT (25.3-37.0) SECONDS Sodium (137-145) mmol/L Potassium (3.5-5.1) mmol/L Chloride (98-107) mmol/L Carbon Dioxide (22-30) mmol/L Anion Gap (5-15) MEQ/L BUN (7-17) mg/dL Creatinine (0.52-1.04) mg/dL Estimated GFR ML/MIN Glucose (74-106) mg/dL Lactic Acid (0.4-2.0) Calcium (8.4-10.2) mg/dL Total Bilirubin (0.2-1.3) mg/dL AST (14-36) U/L ALT (0-35) U/L Alkaline Phosphatase (38-126) U/L Serum Total Protein (6.3-8.2) g/dL Albumin (3.5-5.0) g/dL Amylase (30-110) U/L Lipase (23-300) U/L Serum , Qual (Negative) Urine Color (YELLOW) Urine Appearance (CLEAR) Urine pH (5-6) Ur Specific [place] (1.005-1.025) Urine Protein (Negative) Urine Ketones (NEGATIVE) Urine Blood (0-5) Ed/ul Urine Nitrite (NEGATIVE) Urine Bilirubin (NEGATIVE) Urine Urobilinogen (0-1) mg/dL Ur Leukocyte Esterase (NEGATIVE) Urine WBC (Auto) (0-5) /HPF Urine RBC (Auto) (0-2) /HPF U Epithel Cells (Auto) (FEW) /HPF Urine Bacteria (Auto) (NEGATIVE) /HPF Urine Mucus (Auto) (NEGATIVE) /HPF Urine Culture Reflexed (NO) Urine Glucose (NEGATIVE) mg/dL Stool Occult Blood POSITIVE A (NEGATIVE) Influenza Type A Ag NEGATIVE (NEGATIVE) Influenza Type B Ag NEGATIVE (NEGATIVE) RSV (PCR) NEGATIVE (Negative) SARS-CoV-2 (PCR) NEGATIVE (NEGATIVE) ABO Group O Rh Factor POSITIVE Antibody Screen NEGATIVE (NEGATIVE) Crossmatch COMPATIBLE (COMPATIBLE) 10/16/20 Range/Units 04:50 WBC (4.0-10.5) K/mm3 RBC (4.1-5.4) M/mm3 Hgb (12.0-16.0) gm/dl Hct (35-47) % MCV (78-100) fl MCH (26-32) pg MCHC (32-36) g/dl RDW (11.5-14.0) % Plt Count (150-450) K/mm3 MPV (7.5-11.0) fl Gran % (36.0-66.0) % Eos # (Auto) (0-0.5) Absolute Lymphs (auto) (1.0-4.6) Absolute Monos (auto) (0.0-1.3) Lymphocytes % (24.0-44.0) % Monocytes % (0.0-12.0) % Eosinophils % (0.00-5.0) % Basophils % (0.0-0.4) % Absolute Granulocytes (1.4-6.9) Basophils # (0-0.4) PT (9.95-12.35) SECONDS INR (0.8-3.0) APTT (25.3-37.0) SECONDS Sodium (137-145) mmol/L Potassium (3.5-5.1) mmol/L Chloride (98-107) mmol/L Carbon Dioxide (22-30) mmol/L Anion Gap (5-15) MEQ/L BUN (7-17) mg/dL Creatinine (0.52-1.04) mg/dL Estimated GFR ML/MIN Glucose (74-106) mg/dL Lactic Acid (0.4-2.0) Calcium (8.4-10.2) mg/dL Total Bilirubin (0.2-1.3) mg/dL AST (14-36) U/L ALT (0-35) U/L Alkaline Phosphatase (38-126) U/L Serum Total Protein (6.3-8.2) g/dL Albumin (3.5-5.0) g/dL Amylase (30-110) U/L Lipase (23-300) U/L Serum , Qual (Negative) Urine Color (YELLOW) Urine Appearance (CLEAR) Urine pH (5-6) Ur Specific [place] (1.005-1.025) Urine Protein (Negative) Urine Ketones (NEGATIVE) Urine Blood (0-5) Ed/ul Urine Nitrite (NEGATIVE) Urine Bilirubin (NEGATIVE) Urine Urobilinogen (0-1) mg/dL Ur Leukocyte Esterase (NEGATIVE) Urine WBC (Auto) (0-5) /HPF Urine RBC (Auto) (0-2) /HPF U Epithel Cells (Auto) (FEW) /HPF Urine Bacteria (Auto) (NEGATIVE) /HPF Urine Mucus (Auto) (NEGATIVE) /HPF Urine Culture Reflexed (NO) Urine Glucose (NEGATIVE) mg/dL Stool Occult Blood (NEGATIVE) Influenza Type A Ag (NEGATIVE) Influenza Type B Ag (NEGATIVE) RSV (PCR) (Negative) SARS-CoV-2 (PCR) (NEGATIVE) ABO Group Rh Factor Antibody Screen (NEGATIVE) Crossmatch COMPATIBLE (COMPATIBLE) - Radiology Impressions Radiology Exams & Impressions: Radiology Procedures Category Date Time Status ABDOMEN AND PELVIS W/0 CONTRAS [CT] Stat Exams 10/16/20 01:17 Completed Assessment/Plan (1) Abdominal pain Current Visit: Yes Status: Acute Qualifiers: Abdominal location: epigastric Qualified Code(s): R10.13 - Epigastric pain Assessment & Plan: On CT without contrast, there is LLQ colostomy with new small bowel loops herniating through the abdominal wall defect - I discussed this briefly with pt. Dr. Roberto Eagle consulting, thank you. Having nausea - I offered [place] phenergan and pt agrees. Code(s): R10.9 - UNSPECIFIED ABDOMINAL PAIN (2) COPD (chronic obstructive pulmonary disease) Current Visit: Yes Status: Chronic Qualifiers: COPD type: unspecified COPD Qualified Code(s): J44.9 - Chronic obstructive pulmonary disease, unspecified Assessment & Plan: Pt without complaint, so I suspect she is chronically wheezy. Adding flovent inhaler. Pt has an allergy listed to IV steroids; she said she gets "'roid rage" when she gets steroids IV, but is OK with po steroids. (3) GI bleed Current Visit: Yes Status: Acute Qualifiers: GI bleed type/associated pathology: unspecified gastrointestinal hemorrhage type Qualified Code(s): K92.2 - Gastrointestinal hemorrhage, unspecified Assessment & Plan: Small amount of blood has been seen in ER from the stoma. Her hgb is 13.2. Code(s): K92.2 - GASTROINTESTINAL HEMORRHAGE, UNSPECIFIED (4) Hematuria Current Visit: Yes Status: Chronic Qualifiers: Hematuria type: gross Qualified Code(s): R31.0 - Gross hematuria Assessment & Plan: Long standing. Code(s): R31.9 - HEMATURIA, UNSPECIFIED (5) Nephrolithiasis Current Visit: Yes Status: Chronic Assessment & Plan: Known to pt. She also has a single kidney (congenital).
[2020-10-16] MEDS: Pepcid 20 MG VIAL IV SCH ×2 (12:59→21:51)
[2020-10-16] MEDS ORDERED: Advair Hfa 115/21 Common canister IH SCH (13:00)
[2020-10-16] MEDS ORDERED: PHENERGAN 25 MG PO PRN (13:25)
[2020-10-16] MEDS: PHENERGAN 25 MG PO PRN (19:08)
[2020-10-16] MEDS: Nicoderm CQ 21 MG TOP SCH (19:11)
[2020-10-16] MEDS: Advair Hfa 115/21 Common canister IH SCH (19:58)
--- NOTE | 2020-10-16 21:37 | PCM.CONS ---
History of Present Illness - Reason for Consult Chief Complaint: abdominal pain Requesting Provider: GASTON CAMPUZANO Consulting Provider: TARSHA EAGLE MD History of Present Illness: is a 45 year old femal 2019 ex lap end colostomy for bowel ischemia per pt. multiple laparoscopies, surgeries, hysterectomy for duplication. presents with abdominal pain nausea, emesis. ct with parastomal hernia. "Chief Complaint: abdominal pain History of Present Illness: is a 45 year old female pt of Dr. Campuzano with hx nephrolithiasis, congenital single kidney/IVC duplication, and hematuria who was admitted through ER for abdominal pain and bleeding from the stoma. She had a bowel resection in October [address] Buckley in [facility] apparently for ruptured hernia (however was dx on Friday and surgery was on Fri, per pt) and has had numerous issues postsurgically ever since (has been seeing Dr. Roberto Eagle). She started having more pain 2-3 weeks ago, and it's been worse, with N, for the past 1 week. Unsure if she had any fever. Has been having blood out of the stoma for the past 3 days. She is at times a poor historian and it's unclear if she had any increased output from the stoma. Pain is central abdominal and to the R of the stoma, including the incision; 7- 8/10. Sharp; worse with pressure to the area, a little better with heating pad. Her nausea is better with zofran but still present; she has failed scopolamine in the past but has done well on phenergan. - Review of Systems Respiratory: Short Of Breath (chronic) Cardiac: Edema (LE; worse x 3 weeks) Abdominal/Gastrointestinal: Abdominal Pain, Nausea, Hematochezia Genitourinary Symptoms: Hematuria (gross; chronic) Psychological: Anxiety, Depression, No Suicidal Ideations, No Homicidal Ideations All Other Systems: Reviewed and Negative " Medications & Allergies Home Medications: Home Medication List Gabapentin 600 mg PO QID 06/14/19 [History Confirmed 10/16/20] Bupropion HCl Xl 150 mg [Wellbutrin XL 150 MG] 150 mg PO DAILY 10/16/20 [History Confirmed 10/16/20] Cariprazine HCl [Vraylar] 3 mg PO HS 10/16/20 [History Confirmed 10/16/20] Allergies/Adverse Reactions: Allergies Allergy/AdvReac Type Severity Reaction Status Date / Time Sulfa (Sulfonamide Allergy Intermediate Vomiting Verified 10/16/20 00:51 Antibiotics) bee venom protein (honey bee) Allergy Verified 10/16/20 00:51 methylprednisolone Allergy anger Verified 10/16/20 12:25 [From Solu-Medrol] sumatriptan [From Imitrex] Allergy Verified 10/16/20 00:51 ketorolac [From Toradol] AdvReac Nausea Verified 10/16/20 00:51 nitrofurantoin AdvReac Verified 10/16/20 00:51 [From Macrobid] tramadol AdvReac Nausea Verified 10/16/20 00:51 flu vaccine Allergy Intermediate Uncoded 10/16/20 00:51 - Past Medical History Past Medical History: Yes Neurological History: Migraines ENT History: No Pertinent History Cardiac History: No Pertinent History Respiratory History: No Pertinent History Endocrine Medical History: No Pertinent History Musculoskelatal History: Fibromyalgia GI Medical History: Other History: Other Pyscho-Social History: Bipolar Reproductive Disorders: No Pertinent History Comment: kidney stones - Female History Hx Last Menstrual Period: hyster Are you now?: No - Past Surgical History Past Surgical History: Yes Neuro Surgical History: No Pertinent History Cardiac History: No Pertinent History Respiratory Surgery: No Pertinent History GI Surgical History: Bowel Surgery, Cholecystectomy Genitourinary Surgical Hx: No Pertinent History Musculskeletal Surgical Hx: No Pertinent History Female Surgical History: Hysterectomy, Section Other Surgical History: skin cancer removed twice, hernia removal. ruptured hernia- colostomy - Social History Smoking Status: Current every day smoker How long have you smoked: years Exposure to second hand smoke: Yes Alcohol: Occasionally Drug Use: none - Physical Exam Vital Signs: Vital Signs - 24 hr Temp Pulse Resp BP Pulse Ox 10/16/20 21:00 98.6 F 77 18 105/56 93 L 10/16/20 19:58 80 15 96 10/16/20 17:53 98.0 F 68 14 98/56 94 L 10/16/20 16:51 68 12 91 L 10/16/20 16:00 97.1 F 69 16 110/65 95 10/16/20 14:00 98.7 F 71 13 92/60 92 L 10/16/20 12:00 98.7 F 68 13 103/56 90 L 10/16/20 10:15 94 L 10/16/20 10:00 98.1 F 67 14 96/52 93 L 10/16/20 08:00 97.8 F 59 L 20 84/52 10/16/20 06:15 93 L 10/16/20 06:00 97.1 F 59 L 17 102/58 93 L 10/16/20 05:32 97.1 F 59 L 17 102/58 93 L 10/16/20 03:45 97 10/16/20 03:07 84 16 104/66 94 L 10/16/20 02:36 69 16 106/67 94 L 10/16/20 01:48 71 16 121/64 95 10/16/20 00:40 98.1 F 85 16 129/92 97 Oxygen-Last 24 hours Oxygen Flowrate (L/min)-RT 92 General Appearance: no apparent distress Neurologic Exam: alert, oriented x 3 Eye Exam: eyes nml inspection, No scleral icterus Neck Exam: normal inspection Respiratory Exam: No respiratory distress Cardiovascular Exam: regular rate/rhythm Gastrointestinal/Abdomen Exam: soft, tenderness (nd, soft, ttp at parastomal hernia. stoma reduced. stoma digitized ~ 10inches of stool disimpacted. 125mL enema given with wheeler catheter. no r/g.) Rectal Exam: deferred Results - Labs Lab/Micro Results: Lab Results-Last 24 Hours 10/16/20 10/16/20 10/16/20 Range/Units 01:15 01:20 01:20 WBC 8.7 (4.0-10.5) K/mm3 RBC 4.26 (4.1-5.4) M/mm3 Hgb 13.2 (12.0-16.0) gm/dl Hct 41.9 (35-47) % MCV 98.4 (78-100) fl MCH 31.0 (26-32) pg MCHC 31.5 L (32-36) g/dl RDW 13.5 (11.5-14.0) % Plt Count 386 (150-450) K/mm3 MPV 9.4 (7.5-11.0) fl Gran % 65.0 (36.0-66.0) % Eos # (Auto) 0.56 H (0-0.5) Absolute Lymphs (auto) 1.82 (1.0-4.6) Absolute Monos (auto) 0.67 (0.0-1.3) Lymphocytes % 20.8 L (24.0-44.0) % Monocytes % 7.7 (0.0-12.0) % Eosinophils % 6.4 H (0.00-5.0) % Basophils % 0.1 (0.0-0.4) % Absolute Granulocytes 5.68 (1.4-6.9) Basophils # 0.01 (0-0.4) PT (9.95-12.35) SECONDS INR (0.8-3.0) APTT (25.3-37.0) SECONDS Sodium 140 (137-145) mmol/L Potassium 3.6 (3.5-5.1) mmol/L Chloride 109 H (98-107) mmol/L Carbon Dioxide 20 L (22-30) mmol/L Anion Gap 14.5 (5-15) MEQ/L BUN 21 H (7-17) mg/dL Creatinine 0.71 (0.52-1.04) mg/dL Estimated GFR > 60.0 ML/MIN Glucose 76 (74-106) mg/dL Lactic Acid 1.1 (0.4-2.0) Calcium 9.3 (8.4-10.2) mg/dL Total Bilirubin 0.30 (0.2-1.3) mg/dL AST 32 (14-36) U/L ALT 19 (0-35) U/L Alkaline Phosphatase 121 (38-126) U/L Serum Total Protein 7.3 (6.3-8.2) g/dL Albumin 4.2 (3.5-5.0) g/dL Amylase 101 (30-110) U/L Lipase 76 (23-300) U/L Serum , Qual (Negative) Urine Color (YELLOW) Urine Appearance (CLEAR) Urine pH (5-6) Ur Specific [place] (1.005-1.025) Urine Protein (Negative) Urine Ketones (NEGATIVE) Urine Blood (0-5) Ed/ul Urine Nitrite (NEGATIVE) Urine Bilirubin (NEGATIVE) Urine Urobilinogen (0-1) mg/dL Ur Leukocyte Esterase (NEGATIVE) Urine WBC (Auto) (0-5) /HPF Urine RBC (Auto) (0-2) /HPF U Epithel Cells (Auto) (FEW) /HPF Urine Bacteria (Auto) (NEGATIVE) /HPF Urine Mucus (Auto) (NEGATIVE) /HPF Urine Culture Reflexed (NO) Urine Glucose (NEGATIVE) mg/dL Stool Occult Blood (NEGATIVE) Influenza Type A Ag (NEGATIVE) Influenza Type B Ag (NEGATIVE) RSV (PCR) (Negative) SARS-CoV-2 (PCR) (NEGATIVE) ABO Group Rh Factor Antibody Screen (NEGATIVE) Crossmatch (COMPATIBLE) 10/16/20 10/16/20 10/16/20 Range/Units 01:20 01:20 01:20 WBC (4.0-10.5) K/mm3 RBC (4.1-5.4) M/mm3 Hgb (12.0-16.0) gm/dl Hct (35-47) % MCV (78-100) fl MCH (26-32) pg MCHC (32-36) g/dl RDW (11.5-14.0) % Plt Count (150-450) K/mm3 MPV (7.5-11.0) fl Gran % (36.0-66.0) % Eos # (Auto) (0-0.5) Absolute Lymphs (auto) (1.0-4.6) Absolute Monos (auto) (0.0-1.3) Lymphocytes % (24.0-44.0) % Monocytes % (0.0-12.0) % Eosinophils % (0.00-5.0) % Basophils % (0.0-0.4) % Absolute Granulocytes (1.4-6.9) Basophils # (0-0.4) PT 11.3 (9.95-12.35) SECONDS INR 1.00 (0.8-3.0) APTT 36.3 (25.3-37.0) SECONDS Sodium (137-145) mmol/L Potassium (3.5-5.1) mmol/L Chloride (98-107) mmol/L Carbon Dioxide (22-30) mmol/L Anion Gap (5-15) MEQ/L BUN (7-17) mg/dL Creatinine (0.52-1.04) mg/dL Estimated GFR ML/MIN Glucose (74-106) mg/dL Lactic Acid (0.4-2.0) Calcium (8.4-10.2) mg/dL Total Bilirubin (0.2-1.3) mg/dL AST (14-36) U/L ALT (0-35) U/L Alkaline Phosphatase (38-126) U/L Serum Total Protein (6.3-8.2) g/dL Albumin (3.5-5.0) g/dL Amylase (30-110) U/L Lipase (23-300) U/L Serum , Qual NEGATIVE (Negative) Urine Color YELLOW (YELLOW) Urine Appearance CLEAR (CLEAR) Urine pH 6.0 (5-6) Ur Specific [place] 1.015 (1.005-1.025) Urine Protein NEGATIVE (Negative) Urine Ketones NEGATIVE (NEGATIVE) Urine Blood MODERATE (0-5) Ed/ul Urine Nitrite NEGATIVE (NEGATIVE) Urine Bilirubin NEGATIVE (NEGATIVE) Urine Urobilinogen NEGATIVE (0-1) mg/dL Ur Leukocyte Esterase NEGATIVE (NEGATIVE) Urine WBC (Auto) 3-5 (0-5) /HPF Urine RBC (Auto) 51-100 (0-2) /HPF U Epithel Cells (Auto) RARE (FEW) /HPF Urine Bacteria (Auto) NONE SEEN (NEGATIVE) /HPF Urine Mucus (Auto) SLIGHT (NEGATIVE) /HPF Urine Culture Reflexed NO (NO) Urine Glucose NEGATIVE (NEGATIVE) mg/dL Stool Occult Blood (NEGATIVE) Influenza Type A Ag (NEGATIVE) Influenza Type B Ag (NEGATIVE) RSV (PCR) (Negative) SARS-CoV-2 (PCR) (NEGATIVE) ABO Group Rh Factor Antibody Screen (NEGATIVE) Crossmatch (COMPATIBLE) 10/16/20 10/16/20 10/16/20 Range/Units 01:54 03:53 04:50 WBC (4.0-10.5) K/mm3 RBC (4.1-5.4) M/mm3 Hgb (12.0-16.0) gm/dl Hct (35-47) % MCV (78-100) fl MCH (26-32) pg MCHC (32-36) g/dl RDW (11.5-14.0) % Plt Count (150-450) K/mm3 MPV (7.5-11.0) fl Gran % (36.0-66.0) % Eos # (Auto) (0-0.5) Absolute Lymphs (auto) (1.0-4.6) Absolute Monos (auto) (0.0-1.3) Lymphocytes % (24.0-44.0) % Monocytes % (0.0-12.0) % Eosinophils % (0.00-5.0) % Basophils % (0.0-0.4) % Absolute Granulocytes (1.4-6.9) Basophils # (0-0.4) PT (9.95-12.35) SECONDS INR (0.8-3.0) APTT (25.3-37.0) SECONDS Sodium (137-145) mmol/L Potassium (3.5-5.1) mmol/L Chloride (98-107) mmol/L Carbon Dioxide (22-30) mmol/L Anion Gap (5-15) MEQ/L BUN (7-17) mg/dL Creatinine (0.52-1.04) mg/dL Estimated GFR ML/MIN Glucose (74-106) mg/dL Lactic Acid (0.4-2.0) Calcium (8.4-10.2) mg/dL Total Bilirubin (0.2-1.3) mg/dL AST (14-36) U/L ALT (0-35) U/L Alkaline Phosphatase (38-126) U/L Serum Total Protein (6.3-8.2) g/dL Albumin (3.5-5.0) g/dL Amylase (30-110) U/L Lipase (23-300) U/L Serum , Qual (Negative) Urine Color (YELLOW) Urine Appearance (CLEAR) Urine pH (5-6) Ur Specific [place] (1.005-1.025) Urine Protein (Negative) Urine Ketones (NEGATIVE) Urine Blood (0-5) Ed/ul Urine Nitrite (NEGATIVE) Urine Bilirubin (NEGATIVE) Urine Urobilinogen (0-1) mg/dL Ur Leukocyte Esterase (NEGATIVE) Urine WBC (Auto) (0-5) /HPF Urine RBC (Auto) (0-2) /HPF U Epithel Cells (Auto) (FEW) /HPF Urine Bacteria (Auto) (NEGATIVE) /HPF Urine Mucus (Auto) (NEGATIVE) /HPF Urine Culture Reflexed (NO) Urine Glucose (NEGATIVE) mg/dL Stool Occult Blood POSITIVE A (NEGATIVE) Influenza Type A Ag NEGATIVE (NEGATIVE) Influenza Type B Ag NEGATIVE (NEGATIVE) RSV (PCR) NEGATIVE (Negative) SARS-CoV-2 (PCR) NEGATIVE (NEGATIVE) ABO Group O Rh Factor POSITIVE Antibody Screen NEGATIVE (NEGATIVE) Crossmatch COMPATIBLE (COMPATIBLE) 10/16/20 Range/Units 04:50 WBC (4.0-10.5) K/mm3 RBC (4.1-5.4) M/mm3 Hgb (12.0-16.0) gm/dl Hct (35-47) % MCV (78-100) fl MCH (26-32) pg MCHC (32-36) g/dl RDW (11.5-14.0) % Plt Count (150-450) K/mm3 MPV (7.5-11.0) fl Gran % (36.0-66.0) % Eos # (Auto) (0-0.5) Absolute Lymphs (auto) (1.0-4.6) Absolute Monos (auto) (0.0-1.3) Lymphocytes % (24.0-44.0) % Monocytes % (0.0-12.0) % Eosinophils % (0.00-5.0) % Basophils % (0.0-0.4) % Absolute Granulocytes (1.4-6.9) Basophils # (0-0.4) PT (9.95-12.35) SECONDS INR (0.8-3.0) APTT (25.3-37.0) SECONDS Sodium (137-145) mmol/L Potassium (3.5-5.1) mmol/L Chloride (98-107) mmol/L Carbon Dioxide (22-30) mmol/L Anion Gap (5-15) MEQ/L BUN (7-17) mg/dL Creatinine (0.52-1.04) mg/dL Estimated GFR ML/MIN Glucose (74-106) mg/dL Lactic Acid (0.4-2.0) Calcium (8.4-10.2) mg/dL Total Bilirubin (0.2-1.3) mg/dL AST (14-36) U/L ALT (0-35) U/L Alkaline Phosphatase (38-126) U/L Serum Total Protein (6.3-8.2) g/dL Albumin (3.5-5.0) g/dL Amylase (30-110) U/L Lipase (23-300) U/L Serum , Qual (Negative) Urine Color (YELLOW) Urine Appearance (CLEAR) Urine pH (5-6) Ur Specific [place] (1.005-1.025) Urine Protein (Negative) Urine Ketones (NEGATIVE) Urine Blood (0-5) Ed/ul Urine Nitrite (NEGATIVE) Urine Bilirubin (NEGATIVE) Urine Urobilinogen (0-1) mg/dL Ur Leukocyte Esterase (NEGATIVE) Urine WBC (Auto) (0-5) /HPF Urine RBC (Auto) (0-2) /HPF U Epithel Cells (Auto) (FEW) /HPF Urine Bacteria (Auto) (NEGATIVE) /HPF Urine Mucus (Auto) (NEGATIVE) /HPF Urine Culture Reflexed (NO) Urine Glucose (NEGATIVE) mg/dL Stool Occult Blood (NEGATIVE) Influenza Type A Ag (NEGATIVE) Influenza Type B Ag (NEGATIVE) RSV (PCR) (Negative) SARS-CoV-2 (PCR) (NEGATIVE) ABO Group Rh Factor Antibody Screen (NEGATIVE) Crossmatch COMPATIBLE (COMPATIBLE) - Radiology Impressions Radiology Exams & Impressions: Radiology Procedures Category Date Time Status ABDOMEN AND PELVIS W/0 CONTRAS [CT] Stat Exams 10/16/20 01:17 Completed - Other Procedures and Tests Respiratory Therapy 10/16/20 14:01 Respiratory Therapy Assessment DAILY 10/16/20 20:08 Oxygen Nasal Cannula 2 lpm Assessment/Plan (1) Abdominal pain Current Visit: Yes Status: Acute Qualifiers: Abdominal location: epigastric Qualified Code(s): R10.13 - Epigastric pain Assessment & Plan: 45yo female admit with parastomal hernia pain and obstruction. This was reducible on exam and she was disimpacted and catheter enema given. Ideally we would get her prepped and do a colonoscopy and reverse her ostomy instead of having to do any urgent parastomal hernia surgery. -Golytely starting now. -will plan for friday AM colonoscopy if we can get her prepped. Code(s): R10.9 - UNSPECIFIED ABDOMINAL PAIN
[2020-10-16] MEDS ORDERED: Golytely Solution 4000 ML PO ONE (21:45)
[2020-10-16] MEDS: PATIENT OWN MEDICATION PO SCH (21:51)
[2020-10-16] MEDS ORDERED: CARIPRAZINE HCL 3 MG PO SCH (22:00)
[2020-10-16] MEDS ORDERED: Flovent 110 Mcg MDI IH SCH (22:00)
[2020-10-17] MEDS: Sodium Chloride 0.9% 1000 ML 1,000 ML IV SCH ×2 (04:11→13:14)
[2020-10-17 05:17] LABS: BASOPHIL % 0.2 % (0.0-0.4); Basophil (Absolute #) 0.01 (0-0.4); Eosinophil % 8.4 % (0.00-5.0); Eosinophil (Absolute #) 0.37 (0-0.5); Hematocrit 39.5 % (35-47); Hemoglobin 11.9 gm/dl (12.0-16.0); Lymphocyte (Absolute #) 1.31 (1.0-4.6); Lymphocytes % 29.7 % (24.0-44.0); Mean Corpuscular Hemoglobin 30.4 pg (26-32); Mean Corpuscular Hgb Concent. 30.1 g/dl (32-36); Mean Platelet Volume 9.3 fl (7.5-11.0); Monocyte (Absolute #) 0.42 (0.0-1.3); Monocytes % 9.5 % (0.0-12.0); Neutrophil % 52.2 % (36.0-66.0); Platelet Count 301 K/mm3 (150-450); Red Blood Count 3.91 M/mm3 (4.1-5.4); White Blood Count 4.4 K/mm3 (4.0-10.5)
[2020-10-17] MEDS: Zofran 4 MG/2 ML VIAL IV PRN ×2 (05:55→21:37)
[2020-10-17] MEDS: Advair Hfa 115/21 Common canister IH SCH ×2 (07:25→19:31)
[2020-10-17] MEDS: PHENERGAN 25 MG PO PRN ×2 (08:23→15:04)
[2020-10-17] MEDS ORDERED: NEURONTIN 300 MG PO SCH (09:00)
[2020-10-17] MEDS: NEURONTIN 300 MG PO SCH (09:33)
[2020-10-17] MEDS: Pepcid 20 MG VIAL IV SCH ×2 (09:35→21:29)
[2020-10-17] MEDS: Wellbutrin XL 150 MG PO SCH (09:36)
[2020-10-17] MEDS: PROTONIX 40 MG IV IV SCH (10:54)
[2020-10-17] MEDS ORDERED: Golytely Solution 4000 ML PO ONE (14:00)
[2020-10-17] MEDS: DILAUDID 1 MG/1ML PCA IV PRN ×2 (19:19→23:24)
[2020-10-17] MEDS: Nicoderm CQ 21 MG TOP SCH (20:30)
[2020-10-17] MEDS: PATIENT OWN MEDICATION PO SCH (21:28)
[2020-10-17] MEDS ORDERED: Neurontin 400 MG PO SCH (22:00)
[2020-10-18] MEDS: Sodium Chloride 0.9% 1000 ML 1,000 ML IV SCH (00:02)
[2020-10-18 05:43] LABS: Absolute Neutrophil Ct (ANC) 2.84 (1.4-6.9); Basophil (Absolute #) 0 (0-0.4); Eosinophil % 7.2 % (0.00-5.0); Eosinophil (Absolute #) 0.37 (0-0.5); Hematocrit 39.2 % (35-47); Hemoglobin 12.5 gm/dl (12.0-16.0); Lymphocyte (Absolute #) 1.51 (1.0-4.6); Lymphocytes % 29.4 % (24.0-44.0); Mean Corpuscular Hemoglobin 31.9 pg (26-32); Mean Corpuscular Hgb Concent. 31.9 g/dl (32-36); Monocyte (Absolute #) 0.41 (0.0-1.3); Neutrophil % 55.4 % (36.0-66.0); Platelet Count 303 K/mm3 (150-450); Red Blood Count 3.92 M/mm3 (4.1-5.4); Red Cell Distribution Width 13.8 % (11.5-14.0); White Blood Count 5.1 K/mm3 (4.0-10.5)
[2020-10-18 06:05] LABS: ALBUMIN 3.7 g/dL (3.5-5.0); ALKALINE PHOSPHATASE 115 U/L (38-126); ANION GAP 10.9 MEQ/L (5-15); BLOOD UREA NITROGEN 4 mg/dL (7-17); CHLORIDE 112 mmol/L (98-107); Calcium 8.7 mg/dL (8.4-10.2); Carbon Dioxide 22 mmol/L (22-30); Creatinine 1 0.48 mg/dL (0.52-1.04); EST GLOMERULAR FILTRATION RATE > 60.0 ML/MIN; Glucose 82 mg/dL (74-106); Potassium 4.2 mmol/L (3.5-5.1); SGOT/AST 34 U/L (14-36); SGPT/ALT 22 U/L (0-35); SODIUM 141 mmol/L (137-145); Total Protein 6.6 g/dL (6.3-8.2)
[2020-10-18] MEDS: DILAUDID 1 MG/1ML PCA IV PRN (06:07)
[2020-10-18] MEDS ORDERED: Hydromorphone 1 mg/ml Injection IV PRN (06:19)
[2020-10-18] MEDS ORDERED: DIPRIVAN 200 MG/20 ML IV ONE ×2 (07:03→07:31)
[2020-10-18] MEDS ORDERED: Lactated Ringers 1,000 ML IV ONE (07:15)
[2020-10-18 07:29] VITALS: BP 106/69
[2020-10-18] MEDS: Advair Hfa 115/21 Common canister IH SCH (08:28)
[2020-10-18 08:31] VITALS: PULSE 78; O2SAT 95
--- NOTE | 2020-10-18 09:01 | OP ---
SURGERY DATE/TIME: 10/18/2020 0710 PREOPERATIVE DIAGNOSIS: Colostomy and bright red blood per ostomy and abdominal pain. POSTOPERATIVE DIAGNOSIS: Colostomy and bright red blood per ostomy and abdominal pain. PROCEDURE: Colonoscopy through anus and colostomy. SURGEON: Ras Eagle M.D. ANESTHESIA: IV anesthesia. PATIENT CONDITION: Stable. COMPLICATIONS: None. SPECIMEN: None. HISTORY: The patient is a 45 year-old female who previously underwent end colostomy at a different facility. She was being seen in the office but has missed a few appointments but then presented to the emergency department with abdominal pain and decreased ostomy output. There was a little bit of blood tinge through ostomy output but really she had a hernia that needed reducing. The hernia was reduced. Her pain improved and her symptoms totally improved. She was scheduled to undergo colonoscopy while she is inpatient. She tolerated the prep. FINDINGS: The 14 cm rectal stump is healthy just with some mucoid stool balls and was obscured by some mucous, looks to be 14 cm though. The rest of the colon there is just a couple small diverticula. DESCRIPTION OF PROCEDURE: The patient was brought to endoscopy suite. Time out performed. MAC anesthesia per anesthesia. Rectal exam external is normal. Digital rectal exam just had some mucoid stool balls which were taken out. The scope introduced. It was advanced to 14 cm. There was a little mucous at that point seemed to be the end of the rectal pouch this is normal and satisfactory. The scope is then introduced through the colostomy and advanced to the cecum identified by the appendiceal orifice and ileocecal valve. The preparation is fair. Able to identify any large lesions but small lesions may be missed. Greater than 75% of the mucosa seen. There is 70 cm to the cecum with loops reduced. On withdrawal the colon is completely normal other than a couple small diverticula. The patient tolerated the procedure well and taken to recovery in stable condition. RECOMMENDATIONS: I recommend the patient follow up in office in one to two weeks to schedule her colostomy reversal.
== END 2020-10-18 09:50 | disposition home or self-care (01) | DRG 379 ==
LOC: ED 00:11 → MED SURG 04:37 → OBSVTOIN 21:00
PROVIDERS: ADMIT Family Medicine; ATTEND Family Medicine
PROC: 0DJD8ZZ Inspection of Lower Intestinal Tract, Via Natural or Artificial Opening Endoscopic (ICD-10-PCS; principal; 2020-10-18)
PROC: 0DJD8ZZ Inspection of Lower Intestinal Tract, Via Natural or Artificial Opening Endoscopic (ICD-10-PCS; 2020-10-18)
DX: K92.2 Gastrointestinal hemorrhage, unspecified (principal); R10.9 Unspecified abdominal pain; K57.30 Diverticulosis of large intestine without perforation or abscess without bleeding; R11.0 Nausea; J44.9 Chronic obstructive pulmonary disease, unspecified; Z79.899 Other long term (current) drug therapy; R31.9 Hematuria, unspecified; Z20.828 Contact with and (suspected) exposure to other viral communicable diseases; N20.0 Calculus of kidney
CPT/HCPCS: 0241U; 36000; 36415; 74176; 80053; 81001; 81025; 82150; 82274; 83605; 83690; 85025; 85610; 85730; 86850; 86900; 86901; 86922; 94640; 94760; 94762; 96372; 96374; 96375; 96376; 99285; J1170; J1200; J2405; J2704; A9270-GY; G0328

== ENCOUNTER 2020-11-23 09:07 | Inpatient (IN) | payer OTHER ==
--- NOTE | 2020-11-16 08:09 | HP ---
DATE OF SURGERY: 11/23/2020 HISTORY OF PRESENT ILLNESS: The patient presents status post colonoscopy for evaluation of take down of ostomy. The patient had been scoped back in early October and found to have at 14 cm a healthy rectal stump. She has some mucus balls in there. The rest of the colon was satisfactory with some small diverticula. The scope was advanced to 14 cm in the rectal pouch. It was satisfactory. The patient's evaluation was satisfactory for colostomy reversal. The patient has had this initially back in 2019 except for some bowel ischemia. PAST MEDICAL HISTORY: Depression. Neuropathy. PAST SURGICAL HISTORY: Hysterectomy. Tubal ligation. Trang's procedure. ALLERGIES: SULFA. IMITREX. SOLU-MEDROL. TRAMADOL. TORADOL. MEDICATIONS: Gabapentin, Wellbutrin. FAMILY HISTORY: None reported. SOCIAL HISTORY: Reports smoking half pack a day. Denies alcohol. REVIEW OF SYSTEMS: CONSTITUTIONAL: Denies fever or chills. CHEST: Denies shortness of breath. CVS: Denies chest pain. ABDOMEN: Denies abdominal pain. INTEGUMENTARY: Negative. PHYSICAL EXAMINATION: GENERAL: No acute distress. CHEST: Nonlabored. No shortness of breath. CVS: Regular rate and rhythm. ABDOMEN: Soft. EXTREMITIES: No edema. NEUROLOGIC: Alert. IMPRESSION: Undesired ostomy. PLAN: Colostomy reversal with Dr. Amanuel Eagle. As dictated by Keke Kingston NP.
[~2020-11-23 09:07] MED LIST: Lactated Ringers 1,000 ML IV ONE; Sensorcaine 0.25% 10 ML ONE
[2020-11-23] MEDS ORDERED: CEFAZOLIN 2 GM-D5W BAG** 2 GM/50 ML ML IV SCH (09:30)
[2020-11-23] MEDS ORDERED: Lactated Ringers 1,000 ML IV SCH (09:30)
[2020-11-23] MEDS ORDERED: Versed 2 MG/2 ML Injection ONE ×2 (09:39→09:56)
[2020-11-23] MEDS: Versed 2 MG/2 ML Injection IV ONE ×2 (09:42→11:11)
[2020-11-23 09:49] LABS: Hematocrit 41.8 % (35-47); Hemoglobin 13.3 gm/dl (12.0-16.0); Mean Cell Volume 97.9 fl (78-100); Mean Corpuscular Hemoglobin 31.1 pg (26-32); Mean Corpuscular Hgb Concent. 31.8 g/dl (32-36); Mean Platelet Volume 8.9 fl (7.5-11.0); Platelet Count 364 K/mm3 (150-450); Red Blood Count 4.27 M/mm3 (4.1-5.4); Red Cell Distribution Width 14.9 % (11.5-14.0); White Blood Count 8.7 K/mm3 (4.0-10.5)
[2020-11-23 10:25] LABS: ANION GAP 12.7 MEQ/L (5-15); BLOOD UREA NITROGEN 6 mg/dL (7-17); CHLORIDE 107 mmol/L (98-107); Carbon Dioxide 26 mmol/L (22-30); Creatinine 1 0.47 mg/dL (0.52-1.04); EST GLOMERULAR FILTRATION RATE > 60.0 ML/MIN; Glucose 88 mg/dL (74-106); Potassium 4.1 mmol/L (3.5-5.1); SODIUM 141 mmol/L (137-145)
[2020-11-23] MEDS ORDERED: ENTEREG 12 MG PO SCH (10:30)
[2020-11-23 10:31] LABS: ABO TYPING O; Antibody Screen NEGATIVE (NEGATIVE); RH TYPING POSITIVE
[2020-11-23] MEDS ORDERED: Decadron 4 MG INJ ONE ×2 (10:34→10:57)
[2020-11-23] MEDS ORDERED: DIPRIVAN 200 MG/20 ML IV ONE (10:55)
[2020-11-23] MEDS ORDERED: SUBLIMAZE 100 MCG/2 ML ONE (10:55)
[2020-11-23] MEDS ORDERED: Zemuron 100 MG/10 ML ONE ×3 (10:56→14:11)
[2020-11-23] MEDS ORDERED: Astramorph-Pf 5 MG/10 ML ONE (10:56)
[2020-11-23] MEDS ORDERED: Zofran 4 MG/2 ML VIAL ONE (10:57)
[2020-11-23] MEDS ORDERED: TORAdol 30 mg Injection ONE (10:57)
[2020-11-23] MEDS ORDERED: BRIDION 200MG/2ML IV ONE (11:01)
[2020-11-23] MEDS ORDERED: DUONEB 0.5-3 MG/3 ml Neb IH ONE (11:08)
[2020-11-23] MEDS ORDERED: MORPHINE SULFATE 2 MG INJ IV PRN (12:28)
[2020-11-23] MEDS ORDERED: MORPHINE SULFATE 4 MG INJ IV PRN (12:28)
[2020-11-23] MEDS ORDERED: Lactated Ringers 1,000 ML IV ONE ×2 (12:48→14:12)
[2020-11-23] MEDS ORDERED: KEFZOL 1 GM ONE ×2 (13:32→13:33)
[2020-11-23] MEDS ORDERED: MORPHINE SULFATE 10 MG/ML ONE (15:13)
[2020-11-23 15:25] LABS: Appearance CLEAR (CLEAR); Bacteria RARE /HPF (NEGATIVE); Bilirubin NEGATIVE (NEGATIVE); Blood NEGATIVE Ery/ul (0-5); Glucose NEGATIVE (NEGATIVE); Ketones NEGATIVE (NEGATIVE); Leukocyte Esterase NEGATIVE (NEGATIVE); Nitrite NEGATIVE (NEGATIVE); Protein,Urine Dip NEGATIVE (Negative); RBC 0-2 /HPF (0-2); Specific Gravity 1.012 (1.005-1.025); Urobilinogen NEGATIVE mg/dL (0-1)
[2020-11-23] MEDS: D5W/0.45NS W/ 20mEq KCl 1000 ML 1,000 ML IV SCH (16:05)
[2020-11-23] MEDS ORDERED: TYLENOL EXTRA STRENGTH 500 MG PO PRN (16:34)
[2020-11-23] MEDS ORDERED: Nubain 10 MG/ML IV PRN (16:45)
[2020-11-23] MEDS ORDERED: DEMEROL 50 MG IV PRN (16:45)
[2020-11-23] MEDS ORDERED: Narcan 0.4 MG/ML IV PRN (16:45)
[2020-11-23] MEDS ORDERED: Sodium Chloride 0.9% 10 ML FLUSH Syringe IJ PRN (16:45)
[2020-11-23] MEDS ORDERED: Zofran 4 MG/2 ML VIAL IV PRN (16:45)
[2020-11-23] MEDS ORDERED: PERCOCET TABLET 5/325MG PO PRN (16:45)
[2020-11-23] MEDS ORDERED: BENADRYL 50 MG/ML IV PRN (16:45)
[2020-11-23] MEDS ORDERED: CLARITIN 10 MG PO PRN (16:45)
[2020-11-23] MEDS: NEURONTIN 300 MG PO SCH ×2 (17:22→22:29)
[2020-11-23] MEDS: MEFOXIN 1 Gm/ D5W 50 Ml** 1 G/50 ML ML IV SCH ×2 (18:26→23:25)
[2020-11-23] MEDS: MORPHINE SULFATE 2 MG INJ IV PRN ×2 (21:20→22:32)
[2020-11-24] MEDS: MORPHINE SULFATE 2 MG INJ IV PRN ×3 (00:38→05:26)
[2020-11-24] MEDS: Zofran 4 MG/2 ML VIAL IV PRN ×4 (00:43→22:48)
[2020-11-24] MEDS: D5W/0.45NS W/ 20mEq KCl 1000 ML 1,000 ML IV SCH ×3 (05:26→22:44)
[2020-11-24 05:49] LABS: Hematocrit 43.9 % (35-47); Hemoglobin 13.9 gm/dl (12.0-16.0); Mean Cell Volume 98.2 fl (78-100); Mean Corpuscular Hemoglobin 31.1 pg (26-32); Mean Corpuscular Hgb Concent. 31.7 g/dl (32-36); Platelet Count 381 K/mm3 (150-450); Red Blood Count 4.47 M/mm3 (4.1-5.4); Red Cell Distribution Width 14.5 % (11.5-14.0); White Blood Count 16.6 K/mm3 (4.0-10.5)
[2020-11-24 06:21] LABS: ANION GAP 15.1 MEQ/L (5-15); BLOOD UREA NITROGEN 6 mg/dL (7-17); CHLORIDE 105 mmol/L (98-107); Calcium 8.9 mg/dL (8.4-10.2); Carbon Dioxide 23 mmol/L (22-30); Creatinine 1 0.46 mg/dL (0.52-1.04); EST GLOMERULAR FILTRATION RATE > 60.0 ML/MIN; Glucose 152 mg/dL (74-106); Potassium 4.4 mmol/L (3.5-5.1); SODIUM 138 mmol/L (137-145)
[2020-11-24] MEDS ORDERED: Morphine PCA 1 MG/ML 30 ML IV PRN (06:49)
[2020-11-24] MEDS: MEFOXIN 1 Gm/ D5W 50 Ml** 1 G/50 ML ML IV SCH ×4 (08:17→22:52)
[2020-11-24] MEDS ORDERED: PHARMACY DOSING REQUIRED: DILAUDID PCA IV PRN (08:26)
[2020-11-24] MEDS: DILAUDID 1 MG/1ML PCA IV PRN (08:51)
--- NOTE | 2020-11-24 09:23 | XRAY ---
Indication: NG tube placement. Comparison: None KUB demonstrates NG tube in distal esophagus folded with tip directed superiorly. Bowel gas pattern nonspecific nonobstructed. Cholecystectomy clips, pelvic suture material, and bilateral paramedian cutaneous linda. Osseous structures intact. Comment: Preliminary interpretation made by [facility]. No critical discrepancy.
--- NOTE | 2020-11-24 09:25 | XRAY ---
Indication: Reposition NG tube. Comparison: Taken earlier in day Limited KUB demonstrates NG tube now in the stomach. Visualized bowel gas pattern remains nonspecific nonobstructed again with cholecystectomy clips. Lung bases are clear. Comment: Preliminary interpretation made by [facility]. No critical discrepancy.
[2020-11-24] MEDS: HOLD NARCOTIC ANALGESICS AND SEDATIVES X24 HR MC SCH ×2 (11:00→20:21)
[2020-11-24] MEDS: NEURONTIN 300 MG PO SCH ×4 (11:00→20:25)
--- NOTE | 2020-11-24 11:51 | OP ---
SURGERY DATE/TIME: 11/23/2020 1200 PREOPERATIVE DIAGNOSIS: Undesired colostomy. POSTOPERATIVE DIAGNOSIS: Undesired colostomy. PROCEDURES: 1) Colostomy takedown. 2) Incidental appendectomy. SURGEON: Amanuel Eagle M.D.. BALE STACKER: Dr. Rogelio Delong, [facility]. ANESTHESIA: General. COMPLICATIONS: None. CONDITION: Stable. INDICATION: Patient requiring colostomy takedown. DESCRIPTION OF PROCEDURE: Taken to surgery. General anesthetic. Routine prep and drape. Lithotomy. Spangler catheter, nasogastric tube, Maritza warmer, Thromboguards. Time out performed. Midline incision lower abdomen re-entered. Adhesions were actually sparse and this was good. A little bit of dissection of omentum off the anterior abdominal wall. A little bit of inner loop dissection of adhesions. The cecum identified. The appendix identified. The appendix mobilized with Harmonic scalpel, taken with stapling device immediately against the cecum and sent as "incidental appendectomy". The omentum had been taken down off the transverse colon a little bit of mobilization of this to the left towards the ostomy bud. The small bowels were able to be packed up in the upper abdomen. The ostomy was then taken down. There was a large parastomal hernia that was taken down. The parastomal defect was then closed with running looped 0 PDS under direct visualization. The field was dry. The rectal stump was identified. Coming back about an inch on the rectal stump seemed to be a good place for percutaneous pop through of the EEA anvil. Size 25 was chosen. A size 25 was able to be placed in the distal colon. The 25 anvil was placed in the distal colon, popped out about 2 cm from the contour line. The contour was then placed and fired. The circular lateral [place] edge of the stapler was about 2 cm from the contour line. The EEA first the dilator size 25 followed by the EEA was placed up the rectal stump and then the EEA center peg was popped through the anterior rectal wall at the predesignated site. The red rubber stop base was popped through. It was then assembled. It clicked nicely. It was snug down to 70%. There was no intervening matter other than the two her. It was fired. It was rotated half a turn and removed without issue. The colonoscope was placed. Anastomosis satisfactory. There was saline in the pelvis. There were no air bubbles at all. It was the residual rectal end posteriorly. There was residual right J-loop end from a [id number] anastomosis on the upper right that was about 2 to 2.5 cm and then there was the functional left limb that was cannulated for about 4 inches at this time this all looked satisfactory. There was no air leak. There was no bleeding and the scope was withdrawn. No drains were placed. The field was dry. The small bowel was laid back in organized fashion. Omentum brought down. Anterior abdominal wall closed with looped 0 PDS. Subcutaneous tissues irrigated. Skin closed with linda and hal. The patient tolerated the procedure satisfactorily. Findings discussed with the in the waiting room.
[2020-11-24] MEDS: ENOXAPARIN SODIUM SQ SCH ×2 (11:55→11:58)
[2020-11-24] MEDS ORDERED: NORCO 5/325 MG PO PRN (12:24)
[2020-11-24] MEDS ORDERED: MORPHINE SULFATE 2 MG INJ IV PRN (15:00)
[2020-11-24] MEDS ORDERED: MORPHINE SULFATE 4 MG INJ IV PRN (15:00)
[2020-11-24] MEDS ORDERED: TORAdol 30 mg Injection IV PRN (16:14)
[2020-11-24] MEDS: OFIRMEV 1,000 MG/100 ML ML IV SCH (21:36)
[2020-11-25] MEDS: OFIRMEV 1,000 MG/100 ML ML IV SCH (02:59)
[2020-11-25 06:12] LABS: Hematocrit 37.4 % (35-47); Hemoglobin 11.9 gm/dl (12.0-16.0); Mean Cell Volume 97.1 fl (78-100); Mean Corpuscular Hemoglobin 30.9 pg (26-32); Mean Corpuscular Hgb Concent. 31.8 g/dl (32-36); Mean Platelet Volume 8.9 fl (7.5-11.0); Platelet Count 370 K/mm3 (150-450); Red Blood Count 3.85 M/mm3 (4.1-5.4); Red Cell Distribution Width 14.2 % (11.5-14.0)
[2020-11-25] MEDS: MEFOXIN 1 Gm/ D5W 50 Ml** 1 G/50 ML ML IV SCH ×2 (06:42→12:30)
[2020-11-25 07:05] LABS: ANION GAP 10.9 MEQ/L (5-15); BLOOD UREA NITROGEN 4 mg/dL (7-17); CHLORIDE 103 mmol/L (98-107); Calcium 8.9 mg/dL (8.4-10.2); Carbon Dioxide 27 mmol/L (22-30); Creatinine 1 0.46 mg/dL (0.52-1.04); EST GLOMERULAR FILTRATION RATE > 60.0 ML/MIN; Glucose 126 mg/dL (74-106); Potassium 4.3 mmol/L (3.5-5.1); SODIUM 137 mmol/L (137-145)
[2020-11-25] MEDS: D5W/0.45NS W/ 20mEq KCl 1000 ML 1,000 ML IV SCH ×2 (09:36→20:24)
[2020-11-25] MEDS: ENOXAPARIN SODIUM SQ SCH (09:37)
[2020-11-25] MEDS: NEURONTIN 300 MG PO SCH ×4 (09:37→23:20)
--- NOTE | 2020-11-25 11:39 | PCM.NOTE ---
Date and Time: 11/25/20 1134 Subjective Assessment: patient started c/o pain immediately upon my entry, taking rapid shallow breaths. she is responsive and hemodynamically stable but her mental status is questionable Objective Exam General Appearance: mild distress Neurologic Exam: alert, No oriented x 3, No cooperative Wound Assessment: Skin/Wound Assessment Wound/Incision Assessment Start: 11/23/20 16:13 Text: Status: Active Freq: Q6H Protocol: Document 11/25/20 08:00 RN (Rec: 11/25/20 08:37 RN [id number]) Wound/Incision Assessment Abdomen Wound Assessment Shift Assessment Wound Type Incision Wound Stage Non Pressure Wound Dressing Status Drainage circled Drainage Amount Moderate Wound Photo Photo Taken No Respiratory Exam: crackles/rales, rhonchi Cardiovascular Exam: regular rate/rhythm, normal heart sounds Gastrointestinal/Abdomen Exam: soft, other (dressing c/d/i), No normal bowel sounds Extremity Exam: normal inspection, normal range of motion OBJECTIVE DATA Vital Signs: Vital Signs - 24 hr Temp Pulse Resp BP Pulse Ox 11/25/20 08:58 92 L 11/25/20 08:00 99.8 F 94 H 16 138/94 91 L 11/25/20 05:04 168/81 11/25/20 04:00 99.1 F 71 18 141/101 91 L 11/25/20 00:51 93 L 11/25/20 00:00 98.1 F 86 16 131/86 95 11/24/20 20:51 96 11/24/20 20:39 91 H 22 95 11/24/20 20:00 98.1 F 93 H 17 137/86 94 L 11/24/20 16:00 98.6 F 86 24 153/99 96 11/24/20 12:51 94 L 11/24/20 12:00 98.6 F 95 H 22 142/93 93 L Pain Assessment - Last Documented Pain Intensity 2 Pain Scale Used 0-10 Pain Scale Intake and Output: Intake & Output 11/22/20 11/23/20 11/24/20 11/25/20 11:59 11:59 11:59 11:59 Intake Total 1154 2509 Output Total 1350 3800 Balance -196 -1291 Weight 68.5 kg 71.7 kg Lab Results: Lab Results-Last 24 Hours 11/25/20 11/25/20 Range/Units 05:55 05:55 WBC 15.0 H (4.0-10.5) K/mm3 RBC 3.85 L (4.1-5.4) M/mm3 Hgb 11.9 L (12.0-16.0) gm/dl Hct 37.4 (35-47) % MCV 97.1 (78-100) fl MCH 30.9 (26-32) pg MCHC 31.8 L (32-36) g/dl RDW 14.2 H (11.5-14.0) % Plt Count 370 (150-450) K/mm3 MPV 8.9 (7.5-11.0) fl Sodium 137 (137-145) mmol/L Potassium 4.3 (3.5-5.1) mmol/L Chloride 103 (98-107) mmol/L Carbon Dioxide 27 (22-30) mmol/L Anion Gap 10.9 (5-15) MEQ/L BUN 4 L (7-17) mg/dL Creatinine 0.46 L (0.52-1.04) mg/dL Estimated GFR > 60.0 ML/MIN Glucose 126 H (74-106) mg/dL Calcium 8.9 (8.4-10.2) mg/dL Radiology Exams: Radiology Procedures Category Date Time Status CHEST 1 VIEW (PORTABLE) Routine Exams 11/25/20 11:32 Ordered KUB Stat Exams 11/24/20 03:24 Completed KUB Stat Exams 11/24/20 03:56 Completed Assessment/Plan (1) Altered mental status Current Visit: Yes Status: Acute Assessment & Plan: plan head ct and hepatic function/ammonia to r/o metabolic process. report per nursing of possible suboxone overdose pre-operatively but uncertain of this history. she is on dilaudid clinical case manager standard for post-op pain which is medically necessary but her clinical condition is certainly clouded by her substance abuse history. Code(s): R41.82 - ALTERED MENTAL STATUS, UNSPECIFIED (2) Postoperative generalized abdominal pain Current Visit: No Status: Acute Assessment & Plan: ordered IS, stressed she needs to get up out of bed today, post-op day #2 Code(s): G89.18 - OTHER ACUTE POSTPROCEDURAL PAIN; R10.84 - GENERALIZED ABDOMINAL PAIN (3) UTI (urinary tract infection) Current Visit: No Status: Acute Assessment & Plan: add levaquin for enterococcus on urine culture Code(s): N39.0 - URINARY TRACT INFECTION, SITE NOT SPECIFIED
[2020-11-25] MEDS: Levofloxacin 500MG/100ML D5W 500 MG/100 ML BAG IV SCH (12:44)
[2020-11-25 12:59] LABS: ALBUMIN 4.1 g/dL (3.5-5.0); BILIRUBIN,TOTAL 0.3 mg/dL (0.2-1.3); Total Protein 7.8 g/dL (6.3-8.2)
[2020-11-25] MEDS: DUONEB 0.5-3 MG/3 ml Neb IH SCH ×2 (14:42→19:41)
[2020-11-25] MEDS ORDERED: DUONEB 0.5-3 MG/3 ml Neb IH ONE (14:47)
[2020-11-25] MEDS: DILAUDID 1 MG/1ML PCA IV PRN ×2 (17:14→23:20)
--- NOTE | 2020-11-25 20:18 | XRAY ---
Indication: Postop crackles. Smoking history. Comparison: June 16, 2020. Portable chest demonstrates new minimal left midlung discoid atelectasis/scarring. Remaining heart and lungs unremarkable. Bony thorax intact.
[2020-11-26 05:54] LABS: ANION GAP 13.1 MEQ/L (5-15); BLOOD UREA NITROGEN 5 mg/dL (7-17); CHLORIDE 103 mmol/L (98-107); Calcium 9.1 mg/dL (8.4-10.2); Carbon Dioxide 25 mmol/L (22-30); Creatinine 1 0.52 mg/dL (0.52-1.04); EST GLOMERULAR FILTRATION RATE > 60.0 ML/MIN; Glucose 117 mg/dL (74-106); SODIUM 137 mmol/L (137-145)
[2020-11-26 05:55] LABS: Hemoglobin 11.9 gm/dl (12.0-16.0); Mean Cell Volume 96.1 fl (78-100); Mean Corpuscular Hemoglobin 30.9 pg (26-32); Mean Corpuscular Hgb Concent. 32.2 g/dl (32-36); Platelet Count 379 K/mm3 (150-450); Red Blood Count 3.85 M/mm3 (4.1-5.4); Red Cell Distribution Width 13.9 % (11.5-14.0); White Blood Count 13.1 K/mm3 (4.0-10.5)
[2020-11-26] MEDS: D5W/0.45NS W/ 20mEq KCl 1000 ML 1,000 ML IV SCH ×2 (05:56→16:09)
[2020-11-26] MEDS: DUONEB 0.5-3 MG/3 ml Neb IH SCH ×4 (07:22→19:48)
--- NOTE | 2020-11-26 08:37 | PCM.NOTE ---
Date and Time: 11/26/20834 Subjective Assessment: patient was up in chair yesterday, she is more alert and making more sense according to her Objective Exam General Appearance: no apparent distress, alert Wound Assessment: Skin/Wound Assessment Wound/Incision Assessment Start: 11/23/20 16:13 Text: Status: Active Freq: Q6H Protocol: Document 11/26/20 02:00 KX (Rec: 11/26/20 02:08 KX [id number]) Wound/Incision Assessment Abdomen Wound Assessment Shift Assessment Wound Type Incision Wound Stage Non Pressure Wound Dressing Status Changed Drainage Amount Moderate Wound Photo Photo Taken No Respiratory Exam: normal breath sounds, lungs clear, No respiratory distress Cardiovascular Exam: regular rate/rhythm, normal heart sounds Gastrointestinal/Abdomen Exam: soft, other (dressing c/d/i), No normal bowel sounds Extremity Exam: normal inspection, normal range of motion OBJECTIVE DATA Vital Signs: Vital Signs - 24 hr Temp Pulse Resp BP Pulse Ox 11/26/20 07:26 98.1 F 86 16 124/82 93 L 11/26/20 07:20 67 16 94 L 11/26/20 05:14 93 L 11/26/20 04:00 17 11/26/20 03:20 94 L 11/26/20 03:00 97.8 F 72 17 140/89 94 L 11/26/20 01:14 94 L 11/25/20 23:49 17 11/25/20 23:20 94 L 11/25/20 23:00 16 94 L 11/25/20 20:00 19 11/25/20 19:42 77 20 96 11/25/20 19:30 98.3 F 93 H 19 157/96 93 L 11/25/20 17:14 97 11/25/20 16:30 98.2 F 65 16 137/80 93 L 11/25/20 16:00 18 11/25/20 15:20 96 H 18 98 11/25/20 12:00 16 11/25/20 11:59 98.6 F 94 H 16 129/92 92 L 11/25/20 08:58 92 L Pain Assessment - Last Documented Pain Intensity 8 Pain Scale Used 0-10 Pain Scale Intake and Output: Intake & Output 11/23/20 11/24/20 11/25/20 11/26/20 11:59 11:59 11:59 11:59 Intake Total 0809 9625 0640 Output Total 1553 0890 1200 Balance -196 -1291 1188 Weight 68.5 kg 71.7 kg Lab Results: Lab Results-Last 24 Hours 11/25/20 11/25/20 11/26/20 Range/Units 12:15 12:15 05:01 WBC 13.1 H (4.0-10.5) K/mm3 RBC 3.85 L (4.1-5.4) M/mm3 Hgb 11.9 L (12.0-16.0) gm/dl Hct 37.0 (35-47) % MCV 96.1 (78-100) fl MCH 30.9 (26-32) pg MCHC 32.2 (32-36) g/dl RDW 13.9 (11.5-14.0) % Plt Count 379 (150-450) K/mm3 MPV 9.0 (7.5-11.0) fl Sodium (137-145) mmol/L Potassium (3.5-5.1) mmol/L Chloride (98-107) mmol/L Carbon Dioxide (22-30) mmol/L Anion Gap (5-15) MEQ/L BUN (7-17) mg/dL Creatinine (0.52-1.04) mg/dL Estimated GFR ML/MIN Glucose (74-106) mg/dL Calcium (8.4-10.2) mg/dL Total Bilirubin 0.30 (0.2-1.3) mg/dL Direct Bilirubin 0 (0.0-0.4) mg/dL AST 34 (14-36) U/L ALT 20 (0-35) U/L Alkaline Phosphatase 114 (38-126) U/L Ammonia < 9 L (9-30) umol/L Serum Total Protein 7.8 (6.3-8.2) g/dL Albumin 4.1 (3.5-5.0) g/dL 11/26/20 Range/Units 05:01 WBC (4.0-10.5) K/mm3 RBC (4.1-5.4) M/mm3 Hgb (12.0-16.0) gm/dl Hct (35-47) % MCV (78-100) fl MCH (26-32) pg MCHC (32-36) g/dl RDW (11.5-14.0) % Plt Count (150-450) K/mm3 MPV (7.5-11.0) fl Sodium 137 (137-145) mmol/L Potassium 4.0 (3.5-5.1) mmol/L Chloride 103 (98-107) mmol/L Carbon Dioxide 25 (22-30) mmol/L Anion Gap 13.1 (5-15) MEQ/L BUN 5 L (7-17) mg/dL Creatinine 0.52 (0.52-1.04) mg/dL Estimated GFR > 60.0 ML/MIN Glucose 117 H (74-106) mg/dL Calcium 9.1 (8.4-10.2) mg/dL Total Bilirubin (0.2-1.3) mg/dL Direct Bilirubin (0.0-0.4) mg/dL AST (14-36) U/L ALT (0-35) U/L Alkaline Phosphatase (38-126) U/L Ammonia (9-30) umol/L Serum Total Protein (6.3-8.2) g/dL Albumin (3.5-5.0) g/dL Radiology Exams: Radiology Procedures Category Date Time Status CHEST 1 VIEW (PORTABLE) Routine Exams 11/25/20 11:32 Completed Assessment/Plan (1) Altered mental status Current Visit: Yes Status: Acute Assessment & Plan: improved, patient refused ct but is clearing. this was likely medication related prior to surgery Code(s): R41.82 - ALTERED MENTAL STATUS, UNSPECIFIED (2) Postoperative generalized abdominal pain Current Visit: No Status: Acute Code(s): G89.18 - OTHER ACUTE POSTPROCEDURAL PAIN; R10.84 - GENERALIZED ABDOMINAL PAIN (3) UTI (urinary tract infection) Current Visit: No Status: Acute Assessment & Plan: on levaquin based on culture and allergies Code(s): N39.0 - URINARY TRACT INFECTION, SITE NOT SPECIFIED
[2020-11-26] MEDS: ENOXAPARIN SODIUM SQ SCH (09:29)
[2020-11-26] MEDS: NEURONTIN 300 MG PO SCH ×4 (09:30→21:24)
[2020-11-26] MEDS: Levofloxacin 500MG/100ML D5W 500 MG/100 ML BAG IV SCH (09:31)
[2020-11-27] MEDS: D5W/0.45NS W/ 20mEq KCl 1000 ML 1,000 ML IV SCH (02:09)
[2020-11-27] MEDS: TYLENOL EXTRA STRENGTH 500 MG PO PRN ×2 (04:18→18:55)
[2020-11-27] MEDS: DILAUDID 1 MG/1ML PCA IV PRN (05:02)
[2020-11-27 05:42] LABS: Hematocrit 39.4 % (35-47); Hemoglobin 12.6 gm/dl (12.0-16.0); Mean Cell Volume 95.9 fl (78-100); Mean Corpuscular Hemoglobin 30.7 pg (26-32); Mean Platelet Volume 8.9 fl (7.5-11.0); Platelet Count 394 K/mm3 (150-450); Red Blood Count 4.11 M/mm3 (4.1-5.4); Red Cell Distribution Width 14.1 % (11.5-14.0); White Blood Count 10.8 K/mm3 (4.0-10.5)
[2020-11-27 06:22] LABS: ANION GAP 15.4 MEQ/L (5-15); BLOOD UREA NITROGEN 7 mg/dL (7-17); CHLORIDE 103 mmol/L (98-107); Calcium 9.5 mg/dL (8.4-10.2); Carbon Dioxide 24 mmol/L (22-30); EST GLOMERULAR FILTRATION RATE > 60.0 ML/MIN; Glucose 107 mg/dL (74-106); Potassium 4.2 mmol/L (3.5-5.1); SODIUM 138 mmol/L (137-145)
[2020-11-27] MEDS: DUONEB 0.5-3 MG/3 ml Neb IH SCH ×4 (06:30→19:31)
[2020-11-27] MEDS: Levofloxacin 500MG/100ML D5W 500 MG/100 ML BAG IV SCH (10:06)
[2020-11-27] MEDS: ENOXAPARIN SODIUM SQ SCH (10:06)
[2020-11-27] MEDS: NEURONTIN 300 MG PO SCH ×4 (10:06→21:02)
[2020-11-27] MEDS: PROTONIX 40 MG IV IV SCH (10:06)
--- NOTE | 2020-11-27 10:07 | XRAY ---
Exam: Two-view chest from 11/27/2020. Comparison: AP portable chest film from 11/25/2020. Indication: 45-year-old female had colonoscopy on November 23. Has been coughing up mucus since then; shortness of breath 1 week; smoker. Findings: Upright PA and lateral chest chest films were obtained. The heart size and contour are normal. Scant transversely oriented plate atelectasis remains within the central left lower lung field. I also note some mild vertically oriented, curvilinear discoid atelectasis at the medial right lung base, which I do not believe represents a significant change in retrospect. The remainder of the layne and mediastinal structures appears unremarkable. The lungs appear well expanded with a prominent retrosternal airspace on the lateral image. I see no air space infiltrates, central vascular congestion, pneumothorax, or pleural fluid. There is at least one surgical clip seen within the right upper quadrant as well as the left upper quadrant. Minimal convexity of the lower thoracic spine toward the right is again seen. Impression: 1. Mild vertically oriented discoid atelectasis at the medial right lung base, best seen on the PA film. I don't believe this represents a significant change. I also again see scant transversely oriented subsegmental atelectasis within the central left lower lung field which appears about the same, too. 2. No new air space infiltrates or other acute cardiopulmonary disease is seen.
[2020-11-28] MEDS: D5W/0.45NS W/ 20mEq KCl 1000 ML 1,000 ML IV SCH ×4 (00:02→21:09)
[2020-11-28] MEDS ORDERED: CEPACOL SORE THROAT LOZENGE PO PRN (04:02)
[2020-11-28] MEDS: TYLENOL EXTRA STRENGTH 500 MG PO PRN ×4 (04:31→19:33)
[2020-11-28 05:20] LABS: Absolute Neutrophil Ct (ANC) 6.35 (1.4-6.9); BASOPHIL % 0.2 % (0.0-0.4); Basophil (Absolute #) 0.02 (0-0.4); Eosinophil % 10.5 % (0.00-5.0); Eosinophil (Absolute #) 0.97 (0-0.5); Hematocrit 41.7 % (35-47); Hemoglobin 13.1 gm/dl (12.0-16.0); Mean Cell Volume 97.9 fl (78-100); Mean Corpuscular Hemoglobin 30.8 pg (26-32); Mean Corpuscular Hgb Concent. 31.4 g/dl (32-36); Mean Platelet Volume 8.6 fl (7.5-11.0); Monocyte (Absolute #) 0.71 (0.0-1.3); Monocytes % 7.7 % (0.0-12.0); Neutrophil % 68.6 % (36.0-66.0); Platelet Count 452 K/mm3 (150-450); Red Blood Count 4.26 M/mm3 (4.1-5.4); Red Cell Distribution Width 14.6 % (11.5-14.0); White Blood Count 9.3 K/mm3 (4.0-10.5)
[2020-11-28 06:29] LABS: ALBUMIN 4.1 g/dL (3.5-5.0); ALKALINE PHOSPHATASE 173 U/L (38-126); BLOOD UREA NITROGEN 10 mg/dL (7-17); CHLORIDE 102 mmol/L (98-107); Calcium 9.3 mg/dL (8.4-10.2); Carbon Dioxide 24 mmol/L (22-30); Creatinine 1 0.69 mg/dL (0.52-1.04); EST GLOMERULAR FILTRATION RATE > 60.0 ML/MIN; Glucose 94 mg/dL (74-106); Potassium 4.5 mmol/L (3.5-5.1); SGOT/AST 66 U/L (14-36); SGPT/ALT 99 U/L (0-35); SODIUM 138 mmol/L (137-145); Total Protein 7.6 g/dL (6.3-8.2)
[2020-11-28 06:48] LABS: Eosinophil 6 % (0.00-3.0); Lymphocytes 16 % (24-44); Monocyte 6 % (0.0-12.0); Neutrophils 72 % (36.0-66.0); Total Cells Counted 100
[2020-11-28 06:49] LABS: Platelet Estimate NORMAL (NORMAL)
[2020-11-28] MEDS ORDERED: PHARMACY DOSING REQUIRED: VANCOMYCIN IV STA (07:41)
[2020-11-28] MEDS: DUONEB 0.5-3 MG/3 ml Neb IH SCH ×4 (08:16→20:31)
[2020-11-28] MEDS: VANCOMYCIN 1 GRAM/200 ML BAG 1 GM/200 ML PIGGYBACK IV SCH ×2 (09:05→21:01)
[2020-11-28] MEDS: PROTONIX 40 MG IV IV SCH (09:05)
[2020-11-28] MEDS: ENOXAPARIN SODIUM SQ SCH (09:05)
[2020-11-28] MEDS: NEURONTIN 300 MG PO SCH ×4 (09:06→21:02)
[2020-11-28] MEDS: Nicoderm CQ 21 MG TOP SCH (09:06)
[2020-11-28] MEDS: DILAUDID 1 MG/1ML PCA IV PRN ×3 (10:42→12:06)
[2020-11-28] MEDS: Levofloxacin 500MG/100ML D5W 500 MG/100 ML BAG IV SCH (11:18)
[2020-11-28] MEDS: Zofran 4 MG/2 ML VIAL IV PRN ×2 (11:38→19:32)
[2020-11-29] MEDS: D5W/0.45NS W/ 20mEq KCl 1000 ML 1,000 ML IV SCH ×2 (01:42→17:20)
[2020-11-29] MEDS: TYLENOL EXTRA STRENGTH 500 MG PO PRN ×4 (04:21→21:05)
[2020-11-29] MEDS: Zofran 4 MG/2 ML VIAL IV PRN ×3 (04:27→21:22)
[2020-11-29 05:18] LABS: Hematocrit 38.7 % (35-47); Mean Cell Volume 98.2 fl (78-100); Mean Corpuscular Hemoglobin 30.5 pg (26-32); Mean Platelet Volume 8.3 fl (7.5-11.0); Platelet Count 414 K/mm3 (150-450); Red Blood Count 3.94 M/mm3 (4.1-5.4); Red Cell Distribution Width 14.2 % (11.5-14.0); White Blood Count 9.2 K/mm3 (4.0-10.5)
[2020-11-29 05:53] LABS: ALBUMIN 3.5 g/dL (3.5-5.0); ALKALINE PHOSPHATASE 158 U/L (38-126); ANION GAP 13.8 MEQ/L (5-15); BLOOD UREA NITROGEN 9 mg/dL (7-17); CHLORIDE 104 mmol/L (98-107); Calcium 8.9 mg/dL (8.4-10.2); Carbon Dioxide 22 mmol/L (22-30); Creatinine 1 0.67 mg/dL (0.52-1.04); EST GLOMERULAR FILTRATION RATE > 60.0 ML/MIN; Glucose 93 mg/dL (74-106); PROCALCITONIN 0.719 ng/mL (0.030-0.080); Potassium 4.3 mmol/L (3.5-5.1); SGOT/AST 37 U/L (14-36); SGPT/ALT 65 U/L (0-35); SODIUM 136 mmol/L (137-145); Total Protein 6.7 g/dL (6.3-8.2)
[2020-11-29 06:08] LABS: Eosinophil 10 % (0.00-3.0); Lymphocytes 17 % (24-44); Monocyte 4 % (0.0-12.0); Neutrophils 69 % (36.0-66.0); Platelet Estimate NORMAL (NORMAL); Total Cells Counted 100
[2020-11-29] MEDS: PROTONIX 40 MG IV IV SCH (08:38)
[2020-11-29] MEDS: VANCOMYCIN 1 GRAM/200 ML BAG 1 GM/200 ML PIGGYBACK IV SCH ×2 (08:38→20:57)
[2020-11-29] MEDS: NEURONTIN 300 MG PO SCH ×4 (10:24→20:55)
[2020-11-29] MEDS: Nicoderm CQ 21 MG TOP SCH (10:24)
[2020-11-29] MEDS: Levofloxacin 500MG/100ML D5W 500 MG/100 ML BAG IV SCH (10:24)
[2020-11-29] MEDS: DUONEB 0.5-3 MG/3 ml Neb IH SCH ×4 (11:18→19:35)
[2020-11-30] MEDS: TYLENOL EXTRA STRENGTH 500 MG PO PRN (02:49)
[2020-11-30] MEDS: Zofran 4 MG/2 ML VIAL IV PRN (03:44)
[2020-11-30 05:46] LABS: Hematocrit 37.4 % (35-47); Hemoglobin 11.8 gm/dl (12.0-16.0); Mean Cell Volume 97.4 fl (78-100); Mean Corpuscular Hemoglobin 30.7 pg (26-32); Mean Corpuscular Hgb Concent. 31.6 g/dl (32-36); Mean Platelet Volume 8.4 fl (7.5-11.0); Platelet Count 456 K/mm3 (150-450); Red Blood Count 3.84 M/mm3 (4.1-5.4); Red Cell Distribution Width 13.8 % (11.5-14.0); White Blood Count 9.5 K/mm3 (4.0-10.5)
[2020-11-30 06:03] LABS: ALBUMIN 3.4 g/dL (3.5-5.0); ALKALINE PHOSPHATASE 144 U/L (38-126); ANION GAP 13.7 MEQ/L (5-15); BILIRUBIN,TOTAL < 0.10 mg/dL (0.2-1.3); BLOOD UREA NITROGEN 11 mg/dL (7-17); CHLORIDE 105 mmol/L (98-107); Calcium 8.7 mg/dL (8.4-10.2); Carbon Dioxide 22 mmol/L (22-30); EST GLOMERULAR FILTRATION RATE > 60.0 ML/MIN; Glucose 99 mg/dL (74-106); SGOT/AST 30 U/L (14-36); SGPT/ALT 50 U/L (0-35); SODIUM 137 mmol/L (137-145); Total Protein 6.6 g/dL (6.3-8.2)
[2020-11-30] MEDS: DILAUDID 1 MG/1ML PCA IV PRN (06:16)
[2020-11-30] MEDS: DUONEB 0.5-3 MG/3 ml Neb IH SCH (07:02)
[2020-11-30 07:43] VITALS: BP 113/65; PULSE 72; O2SAT 95
[2020-11-30] MEDS ORDERED: TROUGH DRUG LEVELS IJ ONE (09:30)
--- NOTE | 2020-11-30 10:49 | DS ---
DISCHARGE DIAGNOSES: 1) COLOSTOMY REVERSAL. 2) ENTEROCOCCUS URINARY TRACT INFECTION. 3) NARCOTIC ADDICTION. HOSPITAL COURSE: The patient is a 45 year-old white female who presented to the hospital outpatient for colostomy takedown by Dr. Amanuel Eagle. The patient was admitted to the hospital after colostomy takedown. She had NG tube placed at first to keep stomach free of fluid and to allow the colostomy repair. The patient apparently had difficulty with this and pulled out the NG tube at least three separate times and was replaced and eventually left the NG tube out. She was treated with IV Dilaudid for her pain control. It is important to note that the patient had been on Suboxone as an outpatient and got it filled and took 19 of her pills prior to the date of surgery. The patient has been weaned down off of narcotics and understands that she will not get narcotic prescription. She reports she has a Suboxone prescription waiting for her at home and will be filled at the pharmacy. The patient was slow to recover, complaining of pain 10 out of 10 for at least the first three to four days of seeing her even with the IV narcotics. However, she eventually got to feeling better and by the morning of 11/29/2020, she was able to take a full liquid diet and had regular food but was somewhat nauseated by the evening of 11/29/2020. By 11/30/2020, the patient was feeling better. We continued to wean her off the IV narcotics and discussed with her that she will only get the Suboxone for her outpatient pain management. The patient verbalized her understanding. The patient's vital signs remained stable throughout. Her wound was initially somewhat concerning and we placed her on vancomycin to help out with the improvement of this and the patient did have a fairly significant elevation in her Procalcitonin level prior to this. The patient's white count remained normal. She remained afebrile. The wound began looking somewhat better after the addition of the vancomycin. We felt the patient needed to be off the vancomycin on 11/30/2020 and discharged her home on Levaquin which she was on for the Enterococcus in urine for an additional three days. The patient will be seen for surgical follow up in their office within the next week and she can call and see me in the office whenever she needs. We did send her home with some Zofran for nausea control.
== END 2020-11-30 09:01 | disposition home or self-care (01) | DRG 330 ==
LOC: MED SURG 09:07 → EDSTATUS 09:44
PROVIDERS: ADMIT Surgery; ATTEND Surgery
PROC: 0DQP0ZZ Repair Rectum, Open Approach (ICD-10-PCS; principal; 2020-11-23)
PROC: 0WQF0ZZ Repair Abdominal Wall, Open Approach (ICD-10-PCS; 2020-11-23)
PROC: 0DTJ0ZZ Resection of Appendix, Open Approach (ICD-10-PCS; 2020-11-23)
DX: Z43.3 Encounter for attention to colostomy (principal); N39.0 Urinary tract infection, site not specified; F11.20 Opioid dependence, uncomplicated; R41.82 Altered mental status, unspecified; G89.18 Other acute postprocedural pain; R10.84 Generalized abdominal pain; Z20.828 Contact with and (suspected) exposure to other viral communicable diseases; B95.2 Enterococcus as the cause of diseases classified elsewhere
CPT/HCPCS: 36415; 62322; 64488; 71045; 71046; 74018; 76937; 76942; 80048; 80053; 80076; 81001; 82140; 84134; 84145; 85025; 85027; 86850; 86900; 86901; 87077; 87086; 87186; 88304; 94640; 94667; 94668; 94762; 96374; 96375; J0690; J0694; J1100; J1170; J1650; J1885; J1956; J2250; J2270; J2274; J2405; J2704; J3010; L0625; U0003; A9270-GY; J3370

== ENCOUNTER 2020-12-28 15:30 | Emergency (ER) | payer OTHER ==
[2020-12-28 16:52] LABS: Appearance SLIGHTLY CLOUDY (CLEAR); Bacteria RARE /HPF (NEGATIVE); Bilirubin NEGATIVE (NEGATIVE); Blood NEGATIVE Ery/ul (0-5); Epithelial Cells RARE /HPF (FEW); Glucose NEGATIVE (NEGATIVE); Ketones SMALL (NEGATIVE); Leukocyte Esterase NEGATIVE (NEGATIVE); Mucus SLIGHT /HPF (NEGATIVE); Nitrite NEGATIVE (NEGATIVE); Protein,Urine Dip 30 (Negative); Specific Gravity 1.025 (1.005-1.025); Urobilinogen 4 mg/dL (0-1)
[2020-12-28 16:59] LABS: Amphetamine,Urine NEGATIVE (NEGATIVE); Barbiturate,Urine POSITIVE (NEGATIVE); Benzodiazepine,Urine NEGATIVE (NEGATIVE); Cocaine,Urine NEGATIVE (NEGATIVE); Methadone,Urine NEGATIVE (NEGATIVE); Opiate,Urine NEGATIVE (NEGATIVE); PCP,Urine NEGATIVE (NEGATIVE); THC,Urine NEGATIVE (NEGATIVE)
[2020-12-28 17:25] LABS: Amphetamine,Urine NEGATIVE (NEGATIVE); Barbiturate,Urine POSITIVE (NEGATIVE); Benzodiazepine,Urine NEGATIVE (NEGATIVE); Cocaine,Urine NEGATIVE (NEGATIVE); Methadone,Urine NEGATIVE (NEGATIVE); Opiate,Urine NEGATIVE (NEGATIVE); PCP,Urine NEGATIVE (NEGATIVE); THC,Urine NEGATIVE (NEGATIVE)
--- NOTE | 2020-12-28 17:40 | ERPHSYRPT ---
- History of Present Illness Time Seen by Provider: 12/28/20 16:20 Source: patient, family Patient Subjective Stated Complaint: pt here for pain to lower back , no injury, her states she has been confused off and on, Triage Nursing Assessment: pt alert oreinted , resp easy, skin w.d.p, face mask applied, abd soft, Physician History: This is a 45-year-old white female who presents with acute exacerbation of chronic low back pain. Patient is on Suboxone. She did not suffer any kind of acute trauma or injury to her back. Patient also sees Dr. Cavazos in a pain clinic but she has not received any injections or medications for her back pain per patient and her 's report. Patient's blood sugar is 82. Patient states that she just does not have an appetite. She states she just does not feel good. However, her states that she is prone to taking excessive amount of pain medication of various types. Timing/Duration: day(s) (Worsening over the last several days), worse Method of Injury: other (No injury) Quality: aching Back Pain Location: lumbar spine Severity of Pain-Max: moderate Severity of Pain-Current: moderate Associated Symptoms: No fever, No chills, No urinary incontinence, No loss of bowel control Allergies/Adverse Reactions: Sulfa (Sulfonamide Antibiotics) Allergy (Intermediate, Verified 12/28/20 15:54) Vomiting bee venom protein (honey bee) Allergy (Verified 12/28/20 15:54) methylprednisolone [From Solu-Medrol] Allergy (Verified 12/28/20 15:54) anger can take oral steroids, IV steroids she cannot take -- states she gets "roid rage" sumatriptan [From Imitrex] Allergy (Verified 12/28/20 15:54) ketorolac [From Toradol] Adverse Reaction (Verified 12/28/20 15:54) Nausea nitrofurantoin [From Macrobid] Adverse Reaction (Verified 12/28/20 15:54) tramadol Adverse Reaction (Verified 12/28/20 15:54) Nausea flu vaccine Allergy (Intermediate, Uncoded 12/28/20 15:54) Hoarseness of voice Home Medications: Gabapentin 600 mg PO QID 06/14/19 [History] Acetaminophen [Tylenol Extra Strength] 2 tab PO Q6H PRN 11/14/20 [History] Naproxen Sodium 220 mg [Aleve 220 MG] 220 mg PO DAILY PRN 11/14/20 [History] Buprenorphine HCl/Naloxone HCl [Suboxone 12 mg-3 mg Sl Film] 1 ea DAILY 12/28/20 [History] Hx Tetanus, Diphtheria Vaccination/Date Given: Yes Hx Influenza Vaccination/Date Given: No Hx Pneumococcal Vaccination/Date Given: No Immunizations Up to Date: Yes Travel Risk - International Travel Have you traveled outside of the country in past 3 weeks: No - Coronavirus Screening Are you exhibiting any of the following symptoms?: No Close contact with a COVID-19 positive Pt in past 14-21 Days: No - Vaccine Status Have you recieved a Covid-19 vaccination: No - Review of Systems Constitutional: No Symptoms Eyes: No Symptoms Ears, Nose, & Throat: No Symptoms Respiratory: No Symptoms Cardiac: No Symptoms Abdominal/Gastrointestinal: No Symptoms Genitourinary Symptoms: No Symptoms Musculoskeletal: Back Pain Skin: No Symptoms Neurological: No Symptoms Psychological: No Symptoms Endocrine: No Symptoms Hematologic/Lymphatic: No Symptoms Immunological/Allergic: No Symptoms All Other Systems: Reviewed and Negative - Past Medical History Pertinent Past Medical History: Yes Neurological History: Migraines ENT History: No Pertinent History Cardiac History: No Pertinent History Respiratory History: No Pertinent History Endocrine Medical History: No Pertinent History Musculoskeletal History: Fibromyalgia GI Medical History: Gallbladder Disease, Other History: Other Psycho-Social History: Bipolar Female Reproductive Disorders: No Pertinent History Other Medical History: kidney stones - Past Surgical History Past Surgical History: Yes Neuro Surgical History: No Pertinent History Cardiac: No Pertinent History Respiratory: No Pertinent History Gastrointestinal: Bowel Surgery, Cholecystectomy Genitourinary: No Pertinent History Musculoskeletal: No Pertinent History Female Surgical History: Hysterectomy, Section, Tubal Ligation Other Surgical History: skin cancer removed twice, Umbilical hernia repair. ruptured hernia- colostomy - Social History Smoking Status: Current every day smoker How long have you smoked: 30 years Exposure to second hand smoke: Yes Drug Use: none Patient Lives Alone: No - Female History Hx Last Menstrual Period: post Hx Now: No - Nursing Vital Signs Nursing Vital Signs: Initial Vital Signs Temperature 100.0 F 12/28/20 15:48 Pulse Rate 83 12/28/20 15:48 Respiratory Rate 18 12/28/20 15:48 Blood Pressure 140/86 12/28/20 15:48 O2 Sat by Pulse Oximetry 98 12/28/20 15:48 Pain Scale Pain Intensity [Back] 10 Pain Intensity 5 - Physical Exam General Appearance: no apparent distress, alert, anxiety Eye Exam: PERRL/EOMI, eyes nml inspection Ears, Nose, Throat Exam: normal ENT inspection, moist mucous membranes Neck Exam: normal inspection, non-tender, supple, full range of motion Respiratory Exam: normal breath sounds, lungs clear, airway intact, No chest tenderness, No respiratory distress Cardiovascular Exam: regular rate/rhythm, normal heart sounds, normal peripheral pulses Gastrointestinal Exam: soft, normal bowel sounds, No tenderness Pelvic Exam: not done Rectal Exam: not done Back Exam: normal inspection, normal range of motion, vertebral tenderness, muscle spasm, No CVA tenderness Extremity Exam: normal inspection, normal range of motion, pelvis stable Neurologic Exam: alert, oriented x 3, cooperative, trim machine adjuster II-XII nml as tested, normal mood/affect, nml cerebellar function, nml station & gait, sensation nml Skin Exam: normal color, warm, dry Lymphatic Exam: No adenopathy SpO2 Interpretation: normal SpO2: 96 O2 Delivery: Room Air Ordered Tests: Active Orders 24 hr Category Date Time Status IV Insertion STAT Care 12/28/20 17:58 Active Alcohol [ETHYL ALCOHOL] Stat Lab 12/28/20 18:30 Received CBC W DIFF Stat Lab 12/28/20 18:15 Completed CMP Stat Lab 12/28/20 18:15 Completed HCG,QUALITATIVE URINE Stat Lab 12/28/20 16:31 Completed Lactic Acid Stat Lab 12/28/20 18:20 Completed MAG [MAGNESIUM] Stat Lab 12/28/20 18:15 Completed POCT GLUCOSE Stat Lab 12/28/20 17:34 Completed UA W/RFX UR CULTURE Stat Lab 12/28/20 16:31 Completed Urine Triage Profile Stat Lab 12/28/20 16:31 Completed Urine Triage Profile Stat Lab 12/28/20 17:01 Completed Medication Summary Discontinued Medications Generic Name Dose Route Start Last Admin Trade Name Freq PRN Reason Stop Dose Admin Acetaminophen 650 mg 12/28/20 19:16 12/28/20 19:33 Tylenol 325 Mg PO 12/28/20 19:17 650 mg STAT STA Administration Acetaminophen Confirm 12/28/20 19:30 Tylenol 325 Mg Administered 12/28/20 19:31 Dose 650 mg .ROUTE .STK-MED ONE Sodium Chloride 1,000 mls @ 999 mls/hr 12/28/20 17:58 12/28/20 18:29 Sodium Chloride 0.9% 1000 Ml IV 12/28/20 18:58 999 mls/hr .Q1H1M STA Administration Sodium Chloride Confirm 12/28/20 18:25 Sodium Chloride 0.9% 1000 Ml Administered 12/28/20 18:26 Dose 1,000 mls @ ud .ROUTE .STK-MED ONE Ondansetron HCl 4 mg 12/28/20 19:31 12/28/20 19:32 Zofran Odt 4 Mg PO 12/28/20 19:32 4 mg STAT ONE Administration Ondansetron HCl Confirm 12/28/20 19:30 Zofran Odt 4 Mg Administered 12/28/20 19:31 Dose 4 mg .ROUTE .STK-MED ONE Lab/Rad Data: Laboratory Result Diagrams 12/28/20 18:15 12/28/20 18:15 Laboratory Results 12/28/20 12/28/20 12/28/20 Range/Units 18:20 18:15 18:15 WBC (4.0-10.5) K/mm3 RBC (4.1-5.4) M/mm3 Hgb (12.0-16.0) gm/dl Hct (35-47) % MCV (78-100) fl MCH (26-32) pg MCHC (32-36) g/dl RDW (11.5-14.0) % Plt Count (150-450) K/mm3 MPV (7.5-11.0) fl Gran % (36.0-66.0) % Eos # (Auto) (0-0.5) Absolute Lymphs (auto) (1.0-4.6) Absolute Monos (auto) (0.0-1.3) Lymphocytes % (24.0-44.0) % Monocytes % (0.0-12.0) % Eosinophils % (0.00-5.0) % Basophils % (0.0-0.4) % Absolute Granulocytes (1.4-6.9) Basophils # (0-0.4) Sodium 140 (137-145) mmol/L Potassium 3.6 (3.5-5.1) mmol/L Chloride 104 (98-107) mmol/L Carbon Dioxide 23 (22-30) mmol/L Anion Gap 16.3 H (5-15) MEQ/L BUN 12 (7-17) mg/dL Creatinine 0.50 L (0.52-1.04) mg/dL Estimated GFR > 60.0 ML/MIN Glucose 102 (74-106) mg/dL POC Glucometer (74 to 106) mg/dL Lactic Acid 0.8 (0.4-2.0) Calcium 9.2 (8.4-10.2) mg/dL Magnesium 1.9 (1.6-2.3) mg/dL Total Bilirubin 0.50 (0.2-1.3) mg/dL AST 46 H (14-36) U/L ALT 31 (0-35) U/L Alkaline Phosphatase 156 H (38-126) U/L Serum Total Protein 8.2 (6.3-8.2) g/dL Albumin 4.6 (3.5-5.0) g/dL Urine Color (YELLOW) Urine Appearance (CLEAR) Urine pH (5-6) Ur Specific [place] (1.005-1.025) Urine Protein (Negative) Urine Ketones (NEGATIVE) Urine Blood (0-5) Ed/ul Urine Nitrite (NEGATIVE) Urine Bilirubin (NEGATIVE) Urine Urobilinogen (0-1) mg/dL Ur Leukocyte Esterase (NEGATIVE) Urine WBC (Auto) (0-5) /HPF Urine RBC (Auto) (0-2) /HPF U Epithel Cells (Auto) (FEW) /HPF Urine Bacteria (Auto) (NEGATIVE) /HPF Urine Mucus (Auto) (NEGATIVE) /HPF Urine Culture Reflexed (NO) Urine Glucose (NEGATIVE) mg/dL Urine HCG, Qual (Negative) Urine Opiates Level (NEGATIVE) Ur Methadone (NEGATIVE) Urine Barbiturates (NEGATIVE) Ur Phencyclidine (PCP) (NEGATIVE) Urine Amphetamine (NEGATIVE) U Benzodiazepine Level (NEGATIVE) Urine Cocaine (NEGATIVE) Urine Marijuana (THC) (NEGATIVE) 12/28/20 12/28/20 12/28/20 Range/Units 18:15 17:34 17:01 WBC 5.8 (4.0-10.5) K/mm3 RBC 4.69 (4.1-5.4) M/mm3 Hgb 14.3 (12.0-16.0) gm/dl Hct 45.2 (35-47) % MCV 96.4 (78-100) fl MCH 30.5 (26-32) pg MCHC 31.6 L (32-36) g/dl RDW 14.9 H (11.5-14.0) % Plt Count 336 (150-450) K/mm3 MPV 9.0 (7.5-11.0) fl Gran % 70.2 H (36.0-66.0) % Eos # (Auto) 0.02 (0-0.5) Absolute Lymphs (auto) 1.06 (1.0-4.6) Absolute Monos (auto) 0.63 (0.0-1.3) Lymphocytes % 18.4 L (24.0-44.0) % Monocytes % 10.9 (0.0-12.0) % Eosinophils % 0.3 (0.00-5.0) % Basophils % 0.2 (0.0-0.4) % Absolute Granulocytes 4.04 (1.4-6.9) Basophils # 0.01 (0-0.4) Sodium (137-145) mmol/L Potassium (3.5-5.1) mmol/L Chloride (98-107) mmol/L Carbon Dioxide (22-30) mmol/L Anion Gap (5-15) MEQ/L BUN (7-17) mg/dL Creatinine (0.52-1.04) mg/dL Estimated GFR ML/MIN Glucose (74-106) mg/dL POC Glucometer 82 (74 to 106) mg/dL Lactic Acid (0.4-2.0) Calcium (8.4-10.2) mg/dL Magnesium (1.6-2.3) mg/dL Total Bilirubin (0.2-1.3) mg/dL AST (14-36) U/L ALT (0-35) U/L Alkaline Phosphatase (38-126) U/L Serum Total Protein (6.3-8.2) g/dL Albumin (3.5-5.0) g/dL Urine Color (YELLOW) Urine Appearance (CLEAR) Urine pH (5-6) Ur Specific [place] (1.005-1.025) Urine Protein (Negative) Urine Ketones (NEGATIVE) Urine Blood (0-5) Ed/ul Urine Nitrite (NEGATIVE) Urine Bilirubin (NEGATIVE) Urine Urobilinogen (0-1) mg/dL Ur Leukocyte Esterase (NEGATIVE) Urine WBC (Auto) (0-5) /HPF Urine RBC (Auto) (0-2) /HPF U Epithel Cells (Auto) (FEW) /HPF Urine Bacteria (Auto) (NEGATIVE) /HPF Urine Mucus (Auto) (NEGATIVE) /HPF Urine Culture Reflexed (NO) Urine Glucose (NEGATIVE) mg/dL Urine HCG, Qual (Negative) Urine Opiates Level NEGATIVE (NEGATIVE) Ur Methadone NEGATIVE (NEGATIVE) Urine Barbiturates POSITIVE (NEGATIVE) Ur Phencyclidine (PCP) NEGATIVE (NEGATIVE) Urine Amphetamine NEGATIVE (NEGATIVE) U Benzodiazepine Level NEGATIVE (NEGATIVE) Urine Cocaine NEGATIVE (NEGATIVE) Urine Marijuana (THC) NEGATIVE (NEGATIVE) 12/28/20 12/28/20 12/28/20 Range/Units 16:31 16:31 16:31 WBC (4.0-10.5) K/mm3 RBC (4.1-5.4) M/mm3 Hgb (12.0-16.0) gm/dl Hct (35-47) % MCV (78-100) fl MCH (26-32) pg MCHC (32-36) g/dl RDW (11.5-14.0) % Plt Count (150-450) K/mm3 MPV (7.5-11.0) fl Gran % (36.0-66.0) % Eos # (Auto) (0-0.5) Absolute Lymphs (auto) (1.0-4.6) Absolute Monos (auto) (0.0-1.3) Lymphocytes % (24.0-44.0) % Monocytes % (0.0-12.0) % Eosinophils % (0.00-5.0) % Basophils % (0.0-0.4) % Absolute Granulocytes (1.4-6.9) Basophils # (0-0.4) Sodium (137-145) mmol/L Potassium (3.5-5.1) mmol/L Chloride (98-107) mmol/L Carbon Dioxide (22-30) mmol/L Anion Gap (5-15) MEQ/L BUN (7-17) mg/dL Creatinine (0.52-1.04) mg/dL Estimated GFR ML/MIN Glucose (74-106) mg/dL POC Glucometer (74 to 106) mg/dL Lactic Acid (0.4-2.0) Calcium (8.4-10.2) mg/dL Magnesium (1.6-2.3) mg/dL Total Bilirubin (0.2-1.3) mg/dL AST (14-36) U/L ALT (0-35) U/L Alkaline Phosphatase (38-126) U/L Serum Total Protein (6.3-8.2) g/dL Albumin (3.5-5.0) g/dL Urine Color NATE (YELLOW) Urine Appearance SLIGHTLY CLOUDY (CLEAR) Urine pH 6.0 (5-6) Ur Specific [place] 1.025 (1.005-1.025) Urine Protein 30 (Negative) Urine Ketones SMALL (NEGATIVE) Urine Blood NEGATIVE (0-5) Ed/ul Urine Nitrite NEGATIVE (NEGATIVE) Urine Bilirubin NEGATIVE (NEGATIVE) Urine Urobilinogen 4 (0-1) mg/dL Ur Leukocyte Esterase NEGATIVE (NEGATIVE) Urine WBC (Auto) 3-5 (0-5) /HPF Urine RBC (Auto) 3-5 (0-2) /HPF U Epithel Cells (Auto) RARE (FEW) /HPF Urine Bacteria (Auto) RARE (NEGATIVE) /HPF Urine Mucus (Auto) SLIGHT (NEGATIVE) /HPF Urine Culture Reflexed NO (NO) Urine Glucose NEGATIVE (NEGATIVE) mg/dL Urine HCG, Qual NEGATIVE (Negative) Urine Opiates Level NEGATIVE (NEGATIVE) Ur Methadone NEGATIVE (NEGATIVE) Urine Barbiturates POSITIVE (NEGATIVE) Ur Phencyclidine (PCP) NEGATIVE (NEGATIVE) Urine Amphetamine NEGATIVE (NEGATIVE) U Benzodiazepine Level NEGATIVE (NEGATIVE) Urine Cocaine NEGATIVE (NEGATIVE) Urine Marijuana (THC) NEGATIVE (NEGATIVE) - Progress Progress: improved, pain not gone completely, re-examined Progress Note: 12/28/20 19:37 This patient stated that she is ready to leave. There was a delay in me seeing this patient. There were several more acute, urgent, emergent patients that came in around the same time this patient arrived. They needed stabilization over this patient's evaluation. I did apologize to her and her significant other several times but then made it a point to go into the room 3 times in the last 45 minutes. I stayed in the patient's room for a solid 10 to 15 minutes on the last visit and we came up with a plan for her evaluation in the emergency department. Patient has chronic drug problems and chronic back pain issues. She is stable to be discharged to home. Counseled pt/family regarding: lab results, diagnosis, need for follow-up - Departure Departure Disposition: Home Clinical Impression: Acute exacerbation of chronic low back pain Condition: Stable Critical Care Time: No Referrals: GASTON CAMPUZANO [Primary Care Provider] - Additional Instructions: Follow-up with your Suboxone clinic. Follow-up with your pain management doctor. Use Tylenol for pain control in the interim.
[2020-12-28] MEDS ORDERED: Sodium Chloride 0.9% 1000 ML 1,000 ML IV STA (17:58)
[2020-12-28] MEDS ORDERED: Sodium Chloride 0.9% 1000 ML 1,000 ML ONE (18:25)
[2020-12-28 18:28] LABS: Absolute Neutrophil Ct (ANC) 4.04 (1.4-6.9); BASOPHIL % 0.2 % (0.0-0.4); Basophil (Absolute #) 0.01 (0-0.4); Eosinophil % 0.3 % (0.00-5.0); Eosinophil (Absolute #) 0.02 (0-0.5); Hematocrit 45.2 % (35-47); Hemoglobin 14.3 gm/dl (12.0-16.0); Lymphocyte (Absolute #) 1.06 (1.0-4.6); Lymphocytes % 18.4 % (24.0-44.0); Mean Cell Volume 96.4 fl (78-100); Mean Corpuscular Hemoglobin 30.5 pg (26-32); Mean Corpuscular Hgb Concent. 31.6 g/dl (32-36); Monocyte (Absolute #) 0.63 (0.0-1.3); Monocytes % 10.9 % (0.0-12.0); Neutrophil % 70.2 % (36.0-66.0); Platelet Count 336 K/mm3 (150-450); Red Blood Count 4.69 M/mm3 (4.1-5.4); Red Cell Distribution Width 14.9 % (11.5-14.0); White Blood Count 5.8 K/mm3 (4.0-10.5)
[2020-12-28 18:30] LABS: ALBUMIN 4.6 g/dL (3.5-5.0); ALKALINE PHOSPHATASE 156 U/L (38-126); ANION GAP 16.3 MEQ/L (5-15); BLOOD UREA NITROGEN 12 mg/dL (7-17); CHLORIDE 104 mmol/L (98-107); Calcium 9.2 mg/dL (8.4-10.2); Carbon Dioxide 23 mmol/L (22-30); EST GLOMERULAR FILTRATION RATE > 60.0 ML/MIN; Glucose 102 mg/dL (74-106); Potassium 3.6 mmol/L (3.5-5.1); SGOT/AST 46 U/L (14-36); SGPT/ALT 31 U/L (0-35); SODIUM 140 mmol/L (137-145); Total Protein 8.2 g/dL (6.3-8.2)
[2020-12-28] MEDS ORDERED: TYLENOL 325 MG PO STA (19:16)
[2020-12-28] MEDS ORDERED: ZOFRAN ODT 4 MG ONE (19:30)
[2020-12-28] MEDS ORDERED: TYLENOL 325 MG ONE (19:30)
[2020-12-28] MEDS ORDERED: ZOFRAN ODT 4 MG PO ONE (19:31)
[2020-12-28 19:40] VITALS: O2SAT 96
[2020-12-28 19:41] VITALS: BP 125/79; PULSE 74
== END 2020-12-28 19:56 | disposition home or self-care (01) ==
LOC: ED 15:30
DX: M54.5 Low back pain (principal)
CPT/HCPCS: 36000; 36415; 80053; 80307; 81001; 82947; 83605; 83735; 84703; 85025; 96374; 99284; Q0162; A9270-GY; G0480

== ENCOUNTER 2021-05-21 13:05 | Emergency (ER) | payer OTHER ==
[2021-05-21] MEDS ORDERED: Zofran 4 MG/2 ML VIAL IV ONE (13:42)
[2021-05-21] MEDS ORDERED: MORPHINE SULFATE 4 MG INJ IV ONE (13:42)
[2021-05-21] MEDS ORDERED: MORPHINE SULFATE 4 MG INJ ONE (13:46)
[2021-05-21] MEDS ORDERED: Zofran 4 MG/2 ML VIAL ONE (13:46)
[2021-05-21 14:09] LABS: Absolute Neutrophil Ct (ANC) 9.38 (1.4-6.9); Basophil (Absolute #) 0.01 (0-0.4); Eosinophil % 2.9 % (0.00-5.0); Eosinophil (Absolute #) 0.34 (0-0.5); Hemoglobin 12.6 gm/dl (12.0-16.0); Lymphocyte (Absolute #) 1.19 (1.0-4.6); Lymphocytes % 10.3 % (24.0-44.0); Mean Cell Volume 100.8 fl (78-100); Mean Corpuscular Hemoglobin 31.7 pg (26-32); Mean Corpuscular Hgb Concent. 31.5 g/dl (32-36); Monocyte (Absolute #) 0.68 (0.0-1.3); Monocytes % 5.9 % (0.0-12.0); Neutrophil % 80.8 % (36.0-66.0); Platelet Count 301 K/mm3 (150-450); Red Blood Count 3.97 M/mm3 (4.1-5.4); Red Cell Distribution Width 13.5 % (11.5-14.0); White Blood Count 11.6 K/mm3 (4.0-10.5)
[2021-05-21 14:22] LABS: ALBUMIN 3.4 g/dL (3.5-5.0); ALKALINE PHOSPHATASE 119 U/L (38-126); BLOOD UREA NITROGEN 12 mg/dL (7-17); CHLORIDE 106 mmol/L (98-107); Calcium 8.4 mg/dL (8.4-10.2); Carbon Dioxide 26 mmol/L (22-30); Creatinine 1 0.61 mg/dL (0.52-1.04); EST GLOMERULAR FILTRATION RATE > 60.0 ML/MIN; Glucose 71 mg/dL (74-106); LIPASE 32 U/L (23-300); SGOT/AST 25 U/L (14-36); SGPT/ALT 16 U/L (0-35); SODIUM 137 mmol/L (137-145); Total Protein 6.5 g/dL (6.3-8.2)
[2021-05-21 14:28] LABS: Appearance SLIGHTLY CLOUDY (CLEAR); Bilirubin NEGATIVE (NEGATIVE); Blood NEGATIVE Ery/ul (0-5); Epithelial Cells RARE /HPF (FEW); Glucose NEGATIVE (NEGATIVE); Ketones NEGATIVE (NEGATIVE); Leukocyte Esterase NEGATIVE (NEGATIVE); Mucus SLIGHT /HPF (NEGATIVE); Nitrite NEGATIVE (NEGATIVE); Protein,Urine Dip NEGATIVE (Negative); Specific Gravity 1.011 (1.005-1.025); Urobilinogen NEGATIVE mg/dL (0-1)
--- NOTE | 2021-05-21 14:45 | XRAY ---
Indication: Left flank pain. 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 Multiple contiguous axial images obtained through the abdomen and pelvis without contrast. Comparison: October 16, 2020. Lung bases again demonstrates a few tiny calcified granulomas. Minimal bibasilar dependent atelectasis. No infiltrate or effusion. Heart not enlarged. Noncontrasted stomach and bowel loops appear nonobstructed. Appendix not seen. Re-anastomosis of previous left lower quadrant colostomy with intact sigmoid anastomosis. There is now marked diffuse scattered colonic fecal debris throughout. Rectum demonstrates new mild perirectal stranding with tiny fluid favoring proctitis. No free air. Stable 2 left renal punctate calculi. Left kidney is now mildly hydronephrotic and left ureter is distended up to 1 cm diameter without ureteral or bladder calculus. Again congenitally absent right kidney, IVC duplication, cholecystectomy, and hysterectomy. No free fluid/air. Remaining liver, pancreas, spleen, adrenal glands, left kidney, left ureter, and urinary bladder are unremarkable for noncontrast exam. Stable minimal aortoiliac calcifications without AAA. Osseous structures intact again with lumbosacral junction degenerative disc disease. Impression: 1. New marked diffuse fecal stasis. 2. New distal perirectal stranding with tiny fluid. Rule out proctitis. 3. Stable left renal micro-calculi. New left hydronephrosis/hydroureter without ureteral or bladder calculus. Query recent passage of calculus versus mass effect from marked fecal stasis. 4. Again congenitally absent right kidney, IVC duplication, chronic bony findings, and old granulomatous disease.
[2021-05-21 15:13] VITALS: BP 127/83
--- NOTE | 2021-05-21 15:20 | ERPHSYRPT ---
- History of Present Illness Time Seen by Provider: 05/21/21 13:42 Historian: patient Exam Limitations: no limitations Patient Subjective Stated Complaint: " I have pains in the left middle side of my belly and it goes around to my back. I think I have a kidney stone. It hurts when I pee". Triage Nursing Assessment: Pt presents to ER with complains of left middle abdominal cramping that radiates to left flank region. Pt is alert and oriented x3. Pt respirations are easy and unlabored. Pt complains of nausea and vomiting. Denies diarrhea. States believes she has kidney stone, rates pains 10/10 scale. Pt complains of swelling to lower extremities which is new for her. States has recently gained wait r/t swelling. Pt complains of painful urination as well. Physician History: 46 years old female presented in the ER with chief complaint of left flank pain sudden onset this morning, sharp moderate to severe, more with palpation movements and associated with nausea and an episode of nonprojectile, nonbilious vomiting without hematemesis. She is also complaining of difficulty urination with some burning. Denies any hematuria. Reports symptoms similar to last time she and she had a kidney stones. No fever or chills reported. She recently has colostomy reversal done. Timing/Duration: today, constant, sudden, worse Activities at Onset: rest Quality: sharpness Abdominal Pain Onset Location: flank Severity of Pain-Max: severe Severity of Pain-Current: severe Modifying Factors: Worsens With: movement, palpation Associated Symptoms: nausea, vomiting Previous symptoms: same symptoms as today Allergies/Adverse Reactions: Sulfa (Sulfonamide Antibiotics) Allergy (Intermediate, Verified 05/21/21 13:19) Vomiting bee venom protein (honey bee) Allergy (Verified 05/21/21 13:19) methylprednisolone [From Solu-Medrol] Allergy (Verified 05/21/21 13:19) anger can take oral steroids, IV steroids she cannot take -- states she gets "roid rage" sumatriptan [From Imitrex] Allergy (Verified 05/21/21 13:19) ketorolac [From Toradol] Adverse Reaction (Verified 05/21/21 13:19) Nausea nitrofurantoin [From Macrobid] Adverse Reaction (Verified 05/21/21 13:19) tramadol Adverse Reaction (Verified 05/21/21 13:19) Nausea flu vaccine Allergy (Intermediate, Uncoded 12/28/20 15:54) Hoarseness of voice Home Medications: Gabapentin 600 mg PO QID 06/14/19 [History] Acetaminophen [Tylenol Extra Strength] 2 tab PO Q6H PRN 11/14/20 [History] Hx Tetanus, Diphtheria Vaccination/Date Given: Yes Hx Influenza Vaccination/Date Given: No Hx Pneumococcal Vaccination/Date Given: No Immunizations Up to Date: Yes Travel Risk - International Travel Have you traveled outside of the country in past 3 weeks: No - Coronavirus Screening Are you exhibiting any of the following symptoms?: No Close contact with a COVID-19 positive Pt in past 14-21 Days: No - Vaccine Status Have you recieved a Covid-19 vaccination: No - Review of Systems Constitutional: No Symptoms Eyes: No Symptoms Ears, Nose, & Throat: No Symptoms Respiratory: No Symptoms Cardiac: No Symptoms Abdominal/Gastrointestinal: Abdominal Pain, Nausea, Vomiting Genitourinary Symptoms: No Symptoms Musculoskeletal: No Symptoms Neurological: No Symptoms Psychological: No Symptoms Endocrine: No Symptoms Hematologic/Lymphatic: No Symptoms Immunological/Allergic: No Symptoms - Past Medical History Pertinent Past Medical History: Yes Neurological History: Migraines ENT History: No Pertinent History Cardiac History: No Pertinent History Respiratory History: No Pertinent History Endocrine Medical History: No Pertinent History Musculoskeletal History: Fibromyalgia GI Medical History: Gallbladder Disease, Other History: Other Psycho-Social History: Bipolar Female Reproductive Disorders: No Pertinent History Other Medical History: kidney stones, born with 1 kidney - Past Surgical History Past Surgical History: Yes Neuro Surgical History: No Pertinent History Cardiac: No Pertinent History Respiratory: No Pertinent History Gastrointestinal: Bowel Surgery, Cholecystectomy Genitourinary: No Pertinent History Musculoskeletal: No Pertinent History Female Surgical History: Hysterectomy, Section, Tubal Ligation Other Surgical History: skin cancer removed twice, Umbilical hernia repair. ruptured hernia- colostomy - Social History Smoking Status: Current every day smoker How long have you smoked: 30 years Exposure to second hand smoke: No Drug Use: none Patient Lives Alone: No - Female History Hx Now: No - Nursing Vital Signs Nursing Vital Signs: Initial Vital Signs Temperature 96.9 F 05/21/21 13:10 Pulse Rate 64 05/21/21 13:10 Respiratory Rate 18 05/21/21 13:10 Blood Pressure 135/102 05/21/21 13:10 O2 Sat by Pulse Oximetry 95 05/21/21 13:10 Pain Scale Pain Intensity 7 - Physical Exam General Appearance: no apparent distress, alert Eye Exam: PERRL/EOMI, eyes nml inspection Ears, Nose, Throat Exam: normal ENT inspection, TMs normal, pharynx normal, moist mucous membranes Neck Exam: normal inspection, non-tender, supple, full range of motion Respiratory Exam: normal breath sounds, lungs clear Cardiovascular Exam: regular rate/rhythm, normal heart sounds Gastrointestinal/Abdomen Exam: soft, normal bowel sounds, tenderness (Left flank), No guarding Back Exam: normal inspection, normal range of motion Extremity Exam: normal inspection, normal range of motion Neurologic Exam: alert, oriented x 3, cooperative Skin Exam: normal color SpO2 Interpretation: normal SpO2: 93 O2 Delivery: Room Air Ordered Tests: Active Orders 24 hr Category Date Time Status ABDOMEN AND PELVIS W/0 CONTRAS [CT] Stat Exams 05/21/21 14:23 Completed CBC W DIFF Stat Lab 05/21/21 14:06 Completed CMP Stat Lab 05/21/21 14:06 Completed LIPASE Stat Lab 05/21/21 14:06 Completed UA W/RFX UR CULTURE Stat Lab 05/21/21 13:54 Completed Medication Summary Discontinued Medications Generic Name Dose Route Start Last Admin Trade Name Yehuda PRN Reason Stop Dose Admin Morphine Sulfate 4 mg 05/21/21 13:42 05/21/21 13:48 Morphine Sulfate 4 Mg/Ml Injection IV 05/21/21 13:43 4 mg STAT ONE Administration Morphine Sulfate Confirm 05/21/21 13:46 Morphine Sulfate 4 Mg/Ml Injection Administered 05/21/21 13:47 Dose 4 mg .ROUTE .STK-MED ONE Ondansetron HCl 4 mg 05/21/21 13:42 05/21/21 13:48 Ondansetron Hcl 4 Mg/2 Ml Vial IV 05/21/21 13:43 4 mg STAT ONE Administration Ondansetron HCl Confirm 05/21/21 13:46 Ondansetron Hcl 4 Mg/2 Ml Vial Administered 05/21/21 13:47 Dose 4 mg .ROUTE .STK-MED ONE Lab/Rad Data: Laboratory Result Diagrams 05/21/21 14:06 05/21/21 14:06 Laboratory Results 05/21/21 05/21/21 05/21/21 Range/Units 14:06 14:06 13:54 WBC 11.6 H (4.0-10.5) K/mm3 RBC 3.97 L (4.1-5.4) M/mm3 Hgb 12.6 (12.0-16.0) gm/dl Hct 40.0 (35-47) % MCV 100.8 H (78-100) fl MCH 31.7 (26-32) pg MCHC 31.5 L (32-36) g/dl RDW 13.5 (11.5-14.0) % Plt Count 301 (150-450) K/mm3 MPV 9.0 (7.5-11.0) fl Gran % 80.8 H (36.0-66.0) % Eos # (Auto) 0.34 (0-0.5) Absolute Lymphs (auto) 1.19 (1.0-4.6) Absolute Monos (auto) 0.68 (0.0-1.3) Lymphocytes % 10.3 L (24.0-44.0) % Monocytes % 5.9 (0.0-12.0) % Eosinophils % 2.9 (0.00-5.0) % Basophils % 0.1 (0.0-0.4) % Absolute Granulocytes 9.38 H (1.4-6.9) Basophils # 0.01 (0-0.4) Sodium 137 (137-145) mmol/L Potassium 4.0 (3.5-5.1) mmol/L Chloride 106 (98-107) mmol/L Carbon Dioxide 26 (22-30) mmol/L Anion Gap 9.0 (5-15) MEQ/L BUN 12 (7-17) mg/dL Creatinine 0.61 (0.52-1.04) mg/dL Estimated GFR > 60.0 ML/MIN Glucose 71 L (74-106) mg/dL Calcium 8.4 (8.4-10.2) mg/dL Total Bilirubin 0.50 (0.2-1.3) mg/dL AST 25 (14-36) U/L ALT 16 (0-35) U/L Alkaline Phosphatase 119 (38-126) U/L Serum Total Protein 6.5 (6.3-8.2) g/dL Albumin 3.4 L (3.5-5.0) g/dL Lipase 32 (23-300) U/L Urine Color YELLOW (YELLOW) Urine Appearance SLIGHTLY CLOUDY (CLEAR) Urine pH 6.0 (5-6) Ur Specific [place] 1.011 (1.005-1.025) Urine Protein NEGATIVE (Negative) Urine Ketones NEGATIVE (NEGATIVE) Urine Blood NEGATIVE (0-5) Ed/ul Urine Nitrite NEGATIVE (NEGATIVE) Urine Bilirubin NEGATIVE (NEGATIVE) Urine Urobilinogen NEGATIVE (0-1) mg/dL Ur Leukocyte Esterase NEGATIVE (NEGATIVE) Urine WBC (Auto) NONE (0-5) /HPF Urine RBC (Auto) NONE (0-2) /HPF U Epithel Cells (Auto) RARE (FEW) /HPF Urine Bacteria (Auto) NONE (NEGATIVE) /HPF Urine Mucus (Auto) SLIGHT (NEGATIVE) /HPF Urine Culture Reflexed NO (NO) Urine Glucose NEGATIVE (NEGATIVE) mg/dL - Progress Progress: improved Progress Note: 05/21/21 15:17 She is given symptomatic treatment for pain along with fluids, reevaluation feeling better. Grossly unremarkable work-up and CT finding consistent with recently passed stone. She is advised to take Tylenol ibuprofen and outpatient follow-up. Discussed signs symptoms of worsening needing return to ER which she seems understanding. Stable for discharge. Patient does have some questionable finding of proctitis with recent reversal procedure done, I will place her on Augmentin for few days and have advised to follow-up with her surgeon. Counseled pt/family regarding: lab results, diagnosis, need for follow-up, rad results - Departure Departure Disposition: Home Clinical Impression: Kidney stone on left side, Proctitis, Constipation Condition: Stable Critical Care Time: No Referrals: GASTON CAMPUZANO [Primary Care Provider] - Follow up/PCP as directed (In 2 days fo r reevaluation) Instructions: Acute Abdomen (Belly Pain) Additional Instructions: Take Tylenol/ibuprofen as needed. Follow-up with primary care and your general surgeon who did procedure for reevaluation next few days. Return to ER for worsening abdominal pain, nausea vomiting/fever chills etc. Prescriptions: Amox Tr/Potass Clav. 875 mg [Augmentin 875-125 Tablet] 875 mg PO BID #14 tablet
[2021-05-21 15:31] VITALS: PULSE 88; O2SAT 94
== END 2021-05-21 15:31 | disposition home or self-care (01) ==
LOC: ED 13:05
DX: N20.0 Calculus of kidney (principal); Z87.442 Personal history of urinary calculi; K62.89 Other specified diseases of anus and rectum; K59.00 Constipation, unspecified; R11.2 Nausea with vomiting, unspecified; R30.0 Dysuria; Q60.0 Renal agenesis, unilateral; Z72.0 Tobacco use; Z79.899 Other long term (current) drug therapy
CPT/HCPCS: 36000; 36415; 74176; 80053; 81001; 83690; 85025; 96374; 96375; 99284; J2270; J2405

== ENCOUNTER 2021-06-01 12:36 | Emergency (ER) | payer OTHER ==
[2021-06-01 12:49] VITALS: BP 120/77; PULSE 80; O2SAT 97
--- NOTE | 2021-06-01 13:05 | ERPHSYRPT ---
- History of Present Illness Time Seen by Provider: 06/01/21 12:57 Historian: patient Exam Limitations: no limitations Patient Subjective Stated Complaint: Pt states that she hurts from her left side to her pelvic region for the past 2 days Triage Nursing Assessment: Pt was brought to the ER by her , vitals wnl, rates pain as 8/10, pulses normal, skin n/w/d, pt states that this is the it felt when her hernia burst and she had to have a colostomy, pain with palpatation to the left lower abdomen and left flank, hard to urinate and feels like needles per pt, doesn't appear to be in any distress Timing/Duration: day(s) (2 d) Activities at Onset: none Quality: cramping Abdominal Pain Onset Location: LLQ Pain Radiation: no radiation Severity of Pain-Max: moderate Severity of Pain-Current: moderate Modifying Factors: Improves With: nothing Associated Symptoms: denies symptoms Previous symptoms: same symptoms as today, other (hx renal stones and some colon problems. Also, frequently in ER for pain med.) Allergies/Adverse Reactions: Sulfa (Sulfonamide Antibiotics) Allergy (Intermediate, Verified 06/01/21 12:49) Vomiting bee venom protein (honey bee) Allergy (Verified 06/01/21 12:49) methylprednisolone [From Solu-Medrol] Allergy (Verified 06/01/21 12:49) anger can take oral steroids, IV steroids she cannot take -- states she gets "roid rage" sumatriptan [From Imitrex] Allergy (Verified 06/01/21 12:49) ketorolac [From Toradol] Adverse Reaction (Verified 06/01/21 12:49) Nausea nitrofurantoin [From Macrobid] Adverse Reaction (Verified 06/01/21 12:49) tramadol Adverse Reaction (Verified 06/01/21 12:49) Nausea flu vaccine Allergy (Intermediate, Uncoded 06/01/21 12:49) Hoarseness of voice Home Medications: Gabapentin 600 mg PO QID 06/14/19 [History] Acetaminophen [Tylenol Extra Strength] 2 tab PO Q6H PRN 11/14/20 [History] Hx Tetanus, Diphtheria Vaccination/Date Given: Yes Hx Influenza Vaccination/Date Given: No Hx Pneumococcal Vaccination/Date Given: No Travel Risk - International Travel Have you traveled outside of the country in past 3 weeks: No - Coronavirus Screening Are you exhibiting any of the following symptoms?: No Close contact with a COVID-19 positive Pt in past 14-21 Days: No - Vaccine Status Have you recieved a Covid-19 vaccination: No - Review of Systems Constitutional: No Symptoms Eyes: No Symptoms Ears, Nose, & Throat: No Symptoms Respiratory: No Symptoms Cardiac: No Symptoms Abdominal/Gastrointestinal: Abdominal Pain Genitourinary Symptoms: Dysuria Musculoskeletal: No Symptoms Skin: No Symptoms Neurological: No Symptoms Psychological: No Symptoms Endocrine: No Symptoms Hematologic/Lymphatic: No Symptoms Immunological/Allergic: No Symptoms All Other Systems: Reviewed and Negative - Past Medical History Pertinent Past Medical History: Yes Neurological History: Migraines ENT History: No Pertinent History Cardiac History: No Pertinent History Respiratory History: No Pertinent History Endocrine Medical History: No Pertinent History Musculoskeletal History: Fibromyalgia GI Medical History: Gallbladder Disease, Other History: Other Psycho-Social History: Bipolar Female Reproductive Disorders: No Pertinent History Other Medical History: kidney stones, born with 1 kidney - Past Surgical History Past Surgical History: Yes Neuro Surgical History: No Pertinent History Cardiac: No Pertinent History Respiratory: No Pertinent History Gastrointestinal: Bowel Surgery, Cholecystectomy Genitourinary: No Pertinent History Musculoskeletal: No Pertinent History Female Surgical History: Hysterectomy, Section, Tubal Ligation Other Surgical History: skin cancer removed twice, Umbilical hernia repair. ruptured hernia- colostomy - Social History Smoking Status: Current every day smoker How long have you smoked: 30 years Exposure to second hand smoke: Yes Drug Use: none Patient Lives Alone: No - Female History Hx Now: No - Nursing Vital Signs Nursing Vital Signs: Initial Vital Signs Temperature 98.6 F 06/01/21 12:42 Pulse Rate 80 06/01/21 12:42 Blood Pressure 120/77 06/01/21 12:42 O2 Sat by Pulse Oximetry 97 06/01/21 12:42 Pain Scale Pain Intensity 8 - Physical Exam General Appearance: moderate distress (possibly highly exaggerated), alert, thin Eye Exam: PERRL/EOMI Ears, Nose, Throat Exam: normal ENT inspection Neck Exam: normal inspection Respiratory Exam: normal breath sounds Cardiovascular Exam: regular rate/rhythm Gastrointestinal/Abdomen Exam: soft, normal bowel sounds, tenderness (LLQ) Pelvic Exam: not done Rectal Exam: deferred Back Exam: normal inspection Extremity Exam: normal inspection, normal range of motion Neurologic Exam: alert, oriented x 3, cooperative Skin Exam: normal color, warm, dry SpO2 Interpretation: normal SpO2: 97 O2 Delivery: Room Air - Course Nursing assessment & vital signs reviewed: Yes - CT Exams Abdomen/Pelvis CT Interpretation: Discussed w/radiologist, Other (constipation) Ordered Tests: Active Orders 24 hr Category Date Time Status ABDOMEN AND PELVIS W/0 CONTRAS [CT] Stat Exams 06/01/21 13:05 Completed CBC W DIFF Stat Lab 06/01/21 13:05 Completed CMP Stat Lab 06/01/21 13:45 Completed Manual Differential NC Stat Lab 06/01/21 13:05 Completed UA W/RFX UR CULTURE Stat Lab 06/01/21 13:19 Completed Urine Triage Profile Stat Lab 06/01/21 13:21 Completed Medication Summary Discontinued Medications Generic Name Dose Route Start Last Admin Trade Name Freq PRN Reason Stop Dose Admin Hydromorphone HCl 1 mg 06/01/21 13:08 06/01/21 13:28 Hydromorphone 1 Mg/1ml Inj 1 Mg/Ml Syringe IM 06/01/21 13:09 1 mg STAT ONE Administration Hydromorphone HCl Confirm 06/01/21 13:24 Hydromorphone 1 Mg/1ml Inj 1 Mg/Ml Syringe Administered 06/01/21 13:25 Dose 1 mg .ROUTE .STK-MED ONE Prochlorperazine Edisylate 10 mg 06/01/21 13:16 06/01/21 13:28 Prochlorperazine Edisylate 10 Mg/2 Ml Vial IM 06/01/21 13:17 10 mg STAT ONE Administration Prochlorperazine Edisylate Confirm 06/01/21 13:24 Prochlorperazine Edisylate 10 Mg/2 Ml Vial Administered 06/01/21 13:25 Dose 10 mg .ROUTE .STK-MED ONE Lab/Rad Data: Laboratory Result Diagrams 06/01/21 13:05 06/01/21 13:45 Laboratory Results 06/01/21 06/01/21 06/01/21 Range/Units 13:45 13:21 13:19 WBC (4.0-10.5) K/mm3 RBC (4.1-5.4) M/mm3 Hgb (12.0-16.0) gm/dl Hct (35-47) % MCV (78-100) fl MCH (26-32) pg MCHC (32-36) g/dl RDW (11.5-14.0) % Plt Count (150-450) K/mm3 MPV (7.5-11.0) fl Gran % (36.0-66.0) % Eos # (Auto) (0-0.5) Absolute Lymphs (auto) (1.0-4.6) Absolute Monos (auto) (0.0-1.3) Lymphocytes % (24.0-44.0) % Monocytes % (0.0-12.0) % Eosinophils % (0.00-5.0) % Basophils % (0.0-0.4) % Absolute Granulocytes (1.4-6.9) Basophils # (0-0.4) Sodium 140 (137-145) mmol/L Potassium 3.6 (3.5-5.1) mmol/L Chloride 107 (98-107) mmol/L Carbon Dioxide 25 (22-30) mmol/L Anion Gap 11.9 (5-15) MEQ/L BUN 11 (7-17) mg/dL Creatinine 0.87 (0.52-1.04) mg/dL Estimated GFR > 60.0 ML/MIN Glucose 59 L (74-106) mg/dL Calcium 9.1 (8.4-10.2) mg/dL Total Bilirubin 0.40 (0.2-1.3) mg/dL AST 22 (14-36) U/L ALT 15 (0-35) U/L Alkaline Phosphatase 121 (38-126) U/L Serum Total Protein 7.7 (6.3-8.2) g/dL Albumin 4.0 (3.5-5.0) g/dL Urine Color NATE (YELLOW) Urine Appearance SLIGHTLY CLOUDY (CLEAR) Urine pH 5.0 (5-6) Ur Specific [place] 1.026 (1.005-1.025) Urine Protein NEGATIVE (Negative) Urine Ketones NEGATIVE (NEGATIVE) Urine Blood NEGATIVE (0-5) Ed/ul Urine Nitrite NEGATIVE (NEGATIVE) Urine Bilirubin NEGATIVE (NEGATIVE) Urine Urobilinogen NEGATIVE (0-1) mg/dL Ur Leukocyte Esterase NEGATIVE (NEGATIVE) Urine WBC (Auto) 0-2 (0-5) /HPF Urine RBC (Auto) NONE (0-2) /HPF U Epithel Cells (Auto) RARE (FEW) /HPF Urine Bacteria (Auto) NONE SEEN (NEGATIVE) /HPF Urine Culture Reflexed NO (NO) Urine Glucose NEGATIVE (NEGATIVE) mg/dL Urine Opiates Level POSITIVE (NEGATIVE) Ur Methadone NEGATIVE (NEGATIVE) Urine Barbiturates NEGATIVE (NEGATIVE) Ur Phencyclidine (PCP) NEGATIVE (NEGATIVE) Urine Amphetamine NEGATIVE (NEGATIVE) U Benzodiazepine Level NEGATIVE (NEGATIVE) Urine Cocaine NEGATIVE (NEGATIVE) Urine Marijuana (THC) POSITIVE (NEGATIVE) 06/01/21 Range/Units 13:05 WBC 8.7 (4.0-10.5) K/mm3 RBC 4.67 (4.1-5.4) M/mm3 Hgb 14.5 (12.0-16.0) gm/dl Hct 45.0 (35-47) % MCV 96.4 (78-100) fl MCH 31.0 (26-32) pg MCHC 32.2 (32-36) g/dl RDW 13.6 (11.5-14.0) % Plt Count 716 H (150-450) K/mm3 MPV 8.1 (7.5-11.0) fl Gran % 61.9 (36.0-66.0) % Eos # (Auto) 0.48 (0-0.5) Absolute Lymphs (auto) 2.15 (1.0-4.6) Absolute Monos (auto) 0.68 (0.0-1.3) Lymphocytes % 24.7 (24.0-44.0) % Monocytes % 7.8 (0.0-12.0) % Eosinophils % 5.5 H (0.00-5.0) % Basophils % 0.1 (0.0-0.4) % Absolute Granulocytes 5.37 (1.4-6.9) Basophils # 0.01 (0-0.4) Sodium (137-145) mmol/L Potassium (3.5-5.1) mmol/L Chloride (98-107) mmol/L Carbon Dioxide (22-30) mmol/L Anion Gap (5-15) MEQ/L BUN (7-17) mg/dL Creatinine (0.52-1.04) mg/dL Estimated GFR ML/MIN Glucose (74-106) mg/dL Calcium (8.4-10.2) mg/dL Total Bilirubin (0.2-1.3) mg/dL AST (14-36) U/L ALT (0-35) U/L Alkaline Phosphatase (38-126) U/L Serum Total Protein (6.3-8.2) g/dL Albumin (3.5-5.0) g/dL Urine Color (YELLOW) Urine Appearance (CLEAR) Urine pH (5-6) Ur Specific [place] (1.005-1.025) Urine Protein (Negative) Urine Ketones (NEGATIVE) Urine Blood (0-5) Ed/ul Urine Nitrite (NEGATIVE) Urine Bilirubin (NEGATIVE) Urine Urobilinogen (0-1) mg/dL Ur Leukocyte Esterase (NEGATIVE) Urine WBC (Auto) (0-5) /HPF Urine RBC (Auto) (0-2) /HPF U Epithel Cells (Auto) (FEW) /HPF Urine Bacteria (Auto) (NEGATIVE) /HPF Urine Culture Reflexed (NO) Urine Glucose (NEGATIVE) mg/dL Urine Opiates Level (NEGATIVE) Ur Methadone (NEGATIVE) Urine Barbiturates (NEGATIVE) Ur Phencyclidine (PCP) (NEGATIVE) Urine Amphetamine (NEGATIVE) U Benzodiazepine Level (NEGATIVE) Urine Cocaine (NEGATIVE) Urine Marijuana (THC) (NEGATIVE) - Progress Progress: improved Progress Note: Only finding is constipation causing LLQ pain, which turned out to be highly exaggerated. Rec. OTC laxatives and recheck with PCP. 06/01/21 15:35 Will see patient in: office Counseled pt/family regarding: lab results, diagnosis, need for follow-up, rad results - Departure Clinical Impression: Constipation Qualifiers: Constipation type: unspecified constipation type Qualified Code(s): K59.00 - Constipation, unspecified Abdominal pain Qualifiers: Abdominal location: left lower quadrant Qualified Code(s): R10.32 - Left lower quadrant pain Condition: Stable Critical Care Time: No Referrals: GASTON CAMPUZANO [Primary Care Provider] - Follow up/PCP as directed Instructions: Constipation in Adults Additional Instructions: Take laxatives at home as needed. Recheck with your PCP.
[2021-06-01] MEDS ORDERED: Hydromorphone 1 mg/ml Injection IM ONE (13:08)
[2021-06-01] MEDS ORDERED: Compazine 10 MG/2 ML IM ONE (13:16)
[2021-06-01] MEDS ORDERED: Hydromorphone 1 mg/ml Injection ONE (13:24)
[2021-06-01] MEDS ORDERED: Compazine 10 MG/2 ML ONE (13:24)
--- NOTE | 2021-06-01 13:36 | XRAY ---
Indication: Left abdomen pain and nausea. Multiple contiguous axial images obtained through the abdomen and pelvis without contrast using renal stone protocol. Comparison: May 21, 2021. Lung bases again demonstrates incidental tiny calcified granulomas and minimal bilateral dependent atelectasis. Heart is not enlarged. Stable left lower kidney 2 nonobstructing punctate calculi. Again congenitally absent right kidney, IVC duplication, splenic calcified granulomas, cholecystectomy, and hysterectomy. No free fluid/air. Noncontrasted stomach and bowel loops are nonobstructed with intact sigmoid anastamosis. Colonic radiopacities presumed ingested bismuth vs barium. Increasing markedly worse diffuse fecal stasis. Remaining liver, pancreas, spleen, adrenal glands, left kidney, left ureter, and urinary bladder are unremarkable for noncontrast exam. Stable minimal aortoiliac calcifications without AAA. Impression: Compared to CT 11 days ago, there is marked worsening diffuse fecal stasis. Stable nonobstructing left renal micro-calculi, congenitally absent right kidney, IVC duplication, and old granulomatous disease. No new/acute findings.
[2021-06-01 13:53] LABS: Absolute Neutrophil Ct (ANC) 5.37 (1.4-6.9); Basophil (Absolute #) 0.01 (0-0.4); Eosinophil % 5.5 % (0.00-5.0); Eosinophil (Absolute #) 0.48 (0-0.5); Hemoglobin 14.5 gm/dl (12.0-16.0); Lymphocyte (Absolute #) 2.15 (1.0-4.6); Lymphocytes % 24.7 % (24.0-44.0); Mean Cell Volume 96.4 fl (78-100); Mean Corpuscular Hgb Concent. 32.2 g/dl (32-36); Mean Platelet Volume 8.1 fl (7.5-11.0); Monocyte (Absolute #) 0.68 (0.0-1.3); Monocytes % 7.8 % (0.0-12.0); Neutrophil % 61.9 % (36.0-66.0); Platelet Count 716 K/mm3 (150-450); Red Blood Count 4.67 M/mm3 (4.1-5.4); Red Cell Distribution Width 13.6 % (11.5-14.0); White Blood Count 8.7 K/mm3 (4.0-10.5)
[2021-06-01 14:18] LABS: ALKALINE PHOSPHATASE 121 U/L (38-126); ANION GAP 11.9 MEQ/L (5-15); BLOOD UREA NITROGEN 11 mg/dL (7-17); CHLORIDE 107 mmol/L (98-107); Calcium 9.1 mg/dL (8.4-10.2); Carbon Dioxide 25 mmol/L (22-30); Creatinine 1 0.87 mg/dL (0.52-1.04); EST GLOMERULAR FILTRATION RATE > 60.0 ML/MIN; Glucose 59 mg/dL (74-106); Potassium 3.6 mmol/L (3.5-5.1); SGOT/AST 22 U/L (14-36); SGPT/ALT 15 U/L (0-35); SODIUM 140 mmol/L (137-145); Total Protein 7.7 g/dL (6.3-8.2)
[2021-06-01 14:35] LABS: Appearance SLIGHTLY CLOUDY (CLEAR); Bilirubin NEGATIVE (NEGATIVE); Blood NEGATIVE Ery/ul (0-5); Epithelial Cells RARE /HPF (FEW); Glucose NEGATIVE (NEGATIVE); Ketones NEGATIVE (NEGATIVE); Leukocyte Esterase NEGATIVE (NEGATIVE); Nitrite NEGATIVE (NEGATIVE); Protein,Urine Dip NEGATIVE (Negative); Specific Gravity 1.026 (1.005-1.025); Urobilinogen NEGATIVE mg/dL (0-1); WBC 0-2 /HPF (0-5)
[2021-06-01 14:37] LABS: Bacteria NONE SEEN /HPF (NEGATIVE)
[2021-06-01 14:55] LABS: Amphetamine,Urine NEGATIVE (NEGATIVE); Barbiturate,Urine NEGATIVE (NEGATIVE); Benzodiazepine,Urine NEGATIVE (NEGATIVE); Cocaine,Urine NEGATIVE (NEGATIVE); Methadone,Urine NEGATIVE (NEGATIVE); Opiate,Urine POSITIVE (NEGATIVE); PCP,Urine NEGATIVE (NEGATIVE); THC,Urine POSITIVE (NEGATIVE)
== END 2021-06-01 14:54 | disposition home or self-care (01) ==
LOC: ED 12:36
DX: R10.32 Left lower quadrant pain (principal); K59.00 Constipation, unspecified; Z87.442 Personal history of urinary calculi; Q60.0 Renal agenesis, unilateral; Z72.0 Tobacco use
CPT/HCPCS: 36415; 74176; 80053; 80307; 81001; 85025; 96372; 99284; J1170

== ENCOUNTER 2021-11-01 18:21 | Emergency (ER) | payer OTHER ==
--- NOTE | 2021-11-01 18:59 | ERPHSYRPT ---
- History of Present Illness Source: patient Exam Limitations: no limitations Patient Subjective Stated Complaint: pt here for a fall yesterday, she states dog tripped her and she fell, co pain to left jaw and left rib area Triage Nursing Assessment: pt alert moaning , resp easy, skin w/d/p, face mask in place, has bruisng to left jaw, no bruising or abrasions to right rib, breath sounds clear Physician History: 46 yo wf states that she fell over her dog yesterday and now complains of BOONE/C- Tspine pain/L mandible pain/L lateral thoracic pain. she denies LOC and states that her pain is a 10. Occurred: yesterday Reason for Fall: tripped (Tripped over dog) Injuries/Pain Location: head, face, neck, chest, back Loss of Consciousness: no loss of consciousness Quality: aching Severity of Pain-Max: severe Severity of Pain-Current: severe Modifying Factors: Improves With: movement Associated Symptoms (Fall): back pain, headache, neck pain, No abdominal pain, No confusion, No chest pain, No dizziness, No extremity injury, No lightheadedness, No muscle spasms, No nausea, No ringing in ears, No seizures, No shortness of breath, No slurred speech, No trouble walking, No vomiting, No vision changes Allergies/Adverse Reactions: Sulfa (Sulfonamide Antibiotics) Allergy (Intermediate, Verified 11/01/21 18:34) Vomiting bee venom protein (honey bee) Allergy (Verified 11/01/21 18:34) methylprednisolone [From Solu-Medrol] Allergy (Verified 11/01/21 18:34) anger can take oral steroids, IV steroids she cannot take -- states she gets "roid rage" sumatriptan [From Imitrex] Allergy (Verified 11/01/21 18:34) ketorolac [From Toradol] Adverse Reaction (Verified 11/01/21 18:34) Nausea nitrofurantoin [From Macrobid] Adverse Reaction (Verified 11/01/21 18:34) tramadol Adverse Reaction (Verified 11/01/21 18:34) Nausea flu vaccine Allergy (Intermediate, Uncoded 11/01/21 18:34) Hoarseness of voice Home Medications: Gabapentin 600 mg PO QID 06/14/19 [History] Acetaminophen [Tylenol Extra Strength] 2 tab PO Q6H PRN 11/14/20 [History] Butalbit/Acetamin/Caff/Codeine [Fioricet-Cod 87-332-37-30 Cap] 1 each PO BID 11/01/21 [History] Escitalopram Oxalate [Lexapro] 1 ea DAILY 11/01/21 [History] Hx Tetanus, Diphtheria Vaccination/Date Given: Yes Hx Influenza Vaccination/Date Given: No Hx Pneumococcal Vaccination/Date Given: No Immunizations Up to Date: Yes Travel Risk - International Travel Have you traveled outside of the country in past 3 weeks: No - Coronavirus Screening Are you exhibiting any of the following symptoms?: No - Vaccine Status Have you recieved a Covid-19 vaccination: No - Review of Systems Constitutional: No Symptoms Eyes: No Symptoms Ears, Nose, & Throat: No Symptoms Respiratory: No Symptoms Cardiac: No Symptoms Abdominal/Gastrointestinal: No Symptoms Genitourinary Symptoms: No Symptoms Musculoskeletal: No Symptoms, Back Pain, Neck Pain Skin: No Symptoms Neurological: No Symptoms, Headache Psychological: No Symptoms Endocrine: No Symptoms Hematologic/Lymphatic: No Symptoms Immunological/Allergic: No Symptoms - Past Medical History Pertinent Past Medical History: Yes Neurological History: Migraines ENT History: No Pertinent History Cardiac History: No Pertinent History Respiratory History: No Pertinent History Endocrine Medical History: No Pertinent History Musculoskeletal History: Fibromyalgia GI Medical History: Gallbladder Disease, Other History: Other Psycho-Social History: Bipolar Female Reproductive Disorders: No Pertinent History Other Medical History: kidney stones, born with 1 kidney - Past Surgical History Past Surgical History: Yes Neuro Surgical History: No Pertinent History Cardiac: No Pertinent History Respiratory: No Pertinent History Gastrointestinal: Bowel Surgery, Cholecystectomy Genitourinary: No Pertinent History Musculoskeletal: No Pertinent History Female Surgical History: Hysterectomy, Section, Tubal Ligation Other Surgical History: skin cancer removed twice, Umbilical hernia repair. ruptured hernia- colostomy - Social History Smoking Status: Current every day smoker How long have you smoked: 30 years Exposure to second hand smoke: Yes Drug Use: none Patient Lives Alone: No Significant Family History: no pertinent family hx - Female History Hx Last Menstrual Period: post Hx Now: No - Nursing Vital Signs Nursing Vital Signs: Initial Vital Signs Temperature 98.2 F 11/01/21 18:28 Pulse Rate 59 L 11/01/21 18:28 Respiratory Rate 18 11/01/21 18:28 Blood Pressure 121/84 11/01/21 18:28 O2 Sat by Pulse Oximetry 100 11/01/21 18:28 Pain Scale Pain Intensity 8 Mildly bradycardic - [place] Coma Score Best Eye Response (Carlos): (4) open spontaneously Best Verbal Response (Carlos): (5) oriented Best Motor Response ([place]): (6) obeys commands [place] Total: 15 - Physical Exam General Appearance: no apparent distress Head Injury: no evidence of injury (Complains of BOONE) Eye Exam: PERRL/EOMI ENT Exam: airway nml, evidence of ENT injury, other (L mandible TTP), No clear fluid (ears), No clear fluid (nose) Neck Exam: supple, trachea midline, tenderness (C-spine TTP) Respiratory/Chest Exam: normal breath sounds, rib tenderness (L lateral thorax TTP), No respiratory distress Cardiovascular Exam: normal heart sounds, regular rate/rhythm, normal peripheral pulses, No murmur Gastrointestinal Exam: soft, normal bowel sounds Back Exam: vertebral tenderness (T-spine TTP) Extremity Exam: normal inspection, normal range of motion, capillary refill <3 sec, pelvis stable, No deformities Peripheral Pulses: carotid (R): 2+, carotid (L): 2+ Neurologic Exam: alert, oriented x 3, 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, 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 tested, normal mood/affect, nml station & gait, sensation nml, No motor deficits, No sensory deficit Skin Exam: normal color, warm, dry SpO2 Interpretation: normal SpO2: 100 O2 Delivery: Room Air - Course Nursing assessment & vital signs reviewed: Yes - CT Exams Head CT Interpretation: Discussed w/radiologist (NAD) Cervical Spine CT Interpretation: Discussed w/radiologist (DDD/Nothing acute) Chest CT Interpretation: Discussed w/radiologist (NAD) Maxillofacial Bones CT Interpretation: Discussed w/radiologist (NAD) Thoracic Spine CT Interpretation: Discussed w/radiologist (NAD) Ordered Tests: Active Orders 24 hr Category Date Time Status CERVICAL SPINE WO CONTRAST [CT] Stat Exams 11/01/21 18:53 Taken CHEST WITHOUT CONTRAST [CT] Stat Exams 11/01/21 18:53 Taken FACIAL BONES WO CONTRAST [CT] Stat Exams 11/01/21 18:53 Taken HEAD WITHOUT CONTRAST [CT] Stat Exams 11/01/21 18:53 Taken THORACIC SPINE W/O CONTRAST [CT] Stat Exams 11/01/21 18:53 Taken Medication Summary Discontinued Medications Generic Name Dose Route Start Last Admin Trade Name Ismaq PRN Reason Stop Dose Admin Butorphanol Tartrate 2 mg 11/01/21 19:56 11/01/21 20:02 Butorphanol Tartrate 2 Mg/Ml Vial IM 11/01/21 19:57 2 mg STAT ONE Administration Butorphanol Tartrate Confirm 11/01/21 19:59 Butorphanol Tartrate 2 Mg/Ml Vial Administered 11/01/21 20:00 Dose 2 mg .ROUTE .STK-MED ONE Ondansetron HCl 4 mg 11/01/21 20:09 11/01/21 20:11 Zofran 4 Mg/Udtablet Orally Disintegrating PO 11/01/21 20:10 4 mg STAT ONE Administration Ondansetron HCl Confirm 11/01/21 20:10 Zofran 4 Mg/Udtablet Orally Disintegrating Administered 11/01/21 20:11 Dose 4 mg .ROUTE .STK-MED ONE - Progress Progress: improved Progress Note: 11/01/21 20:37 2mg IM Stadol/4mg Zofran odt 11/01/21 22:30 Inspect-last Suboxone Rx in August 2021 Counseled pt/family regarding: diagnosis, need for follow-up, rad results - Departure Departure Disposition: Home Clinical Impression: Minor head injury, Cervical strain, Contusion, chest wall, Strain of thoracic back region Condition: Stable Critical Care Time: No Referrals: GASTON CAMPUZANO [Primary Care Provider] - Follow up/PCP as directed Instructions: Contusion (DC), Minor Head Injury (DC) Additional Instructions: Motrin/Tylenol for pain Weight bearing as tolerated Follow up with your family MD for continued pain Prescriptions: Orphenadrine Citrate 100 mg [Norflex 100 MG Tablet] 100 mg PO BID PRN #10 tab PRN Reason: Pain
[2021-11-01 19:28] VITALS: BP 108/78; PULSE 64
[2021-11-01] MEDS ORDERED: STADOL 2 MG IM ONE (19:56)
[2021-11-01] MEDS ORDERED: STADOL 2 MG ONE (19:59)
[2021-11-01] MEDS ORDERED: ZOFRAN ODT 4 MG PO ONE (20:09)
[2021-11-01] MEDS ORDERED: ZOFRAN ODT 4 MG ONE (20:10)
[2021-11-01 20:15] VITALS: O2SAT 100
--- NOTE | 2021-11-02 09:05 | XRAY ---
Indication: Pain following fall. Multiple contiguous axial images obtained through the head without contrast. Comparison: None Normal appearing brain parenchyma, ventricles, and bony calvarium. Mild mucosal thickening both ethmoid sinuses. Remaining visualized paranasal sinuses and mastoid air cells are clear. Impression: Mild paranasal sinus disease. Remaining CT head without contrast exam is normal.
--- NOTE | 2021-11-02 09:07 | XRAY ---
Indication: Left jaw pain following fall. Multiple contiguous axial images obtained through the facial bones. Sagittal and coronal reformatted images obtained. Comparison: None Patient is edentulous. No acute fracture, suspicious bony lesions, or radial opaque foreign body. Orbits including roof, her, and floors are intact. Mild mucosal thickening both ethmoid and lesser degree both maxillary sinuses without fluid leveling. Additional moderate mucosal thickening of both nasal passages with incidental minimal nasoseptal deviation to the left. Visualized noncontrasted soft tissues are unremarkable. Impression: Mild paranasal sinus disease. Remaining CT facial bones is negative.
--- NOTE | 2021-11-02 09:09 | XRAY ---
Indication: Pain following fall. Multiple contiguous axial images obtained through the cervical spine. Sagittal and coronal reformatted images obtained. Comparison: None Axial images negative for acute fracture, suspicious bony lesions, or spinal canal stenosis. Minimal/mild C4-C6 degenerative endplate spurring. Facets are symmetric. Sagittal and coronal reformatted images demonstrates mild lordotic reversal, positional versus paraspinal spasm. Mild C4-C5 and lesser degree C5-C6 disc space narrowing. No acute compression fracture, subluxation, or jumped facet. Normal appearing craniocervical junction. Visualized noncontrasted soft tissues unremarkable. Impression: 1. Negative for acute fracture/subluxation. 2. Lordotic reversal, positional versus paraspinal spasm. 3. C4-C6 degenerative changes.
--- NOTE | 2021-11-02 09:11 | XRAY ---
Indication: Left chest pain following fall. Multiple contiguous axial images obtained through the chest without contrast. Comparison: None Lungs inflated with incidental minimal bilateral dependent atelectasis and a few tiny bilateral calcified granulomas. No suspicious pulmonary mass, infiltrate, or effusion. Heart is not enlarged. Aorta is normal in course and caliber. Small right hilar calcified nodes. No pathologic mediastinal lymphadenopathy. Bony thorax intact with minimal degenerative changes throughout the spine. Limited upper abdomen demonstrates a few splenic calcified granulomas and cholecystectomy clips. Impression: 1. Minimal degenerative spondylosis and old granulomatous disease. 2. Remaining CT chest without contrast exam is negative.
--- NOTE | 2021-11-02 09:13 | XRAY ---
Indication: Pain following fall. Multiple contiguous axial images obtained through the thoracic spine. Sagittal and coronal reformatted images obtained. Comparison: None Axial images negative for acute fracture, suspicious bony lesions, or spinal canal stenosis. Minimal multilevel anterior endplate spurring. Sagittal and coronal reformatted images demonstrates normal alignment with vertebral body heights/disc spaces maintained. CT chest reported separately. Impression: Minimal degenerative changes. Remaining CT thoracic spine is negative.
== END 2021-11-01 20:55 | disposition home or self-care (01) ==
LOC: ED 18:21
DX: S09.90XA Unspecified injury of head, initial encounter (principal); S16.1XXA Strain of muscle, fascia and tendon at neck level, initial encounter; S29.012A Strain of muscle and tendon of back wall of thorax, initial encounter; S20.212A Contusion of left front wall of thorax, initial encounter; W01.0XXA Fall on same level from slipping, tripping and stumbling without subsequent striking against object, initial encounter; R51.9 Headache, unspecified; M54.6 Pain in thoracic spine; M54.2 Cervicalgia; R68.84 Jaw pain; Z72.0 Tobacco use; Z79.899 Other long term (current) drug therapy; Z28.310 Unvaccinated for COVID-19
CPT/HCPCS: 70450; 70486; 71250; 72125; 72128; 96372; 99284; J0595; Q0162

== ENCOUNTER 2022-02-15 21:41 | Emergency (ER) | payer OTHER ==
[2022-02-15] MEDS ORDERED: Reglan 10 MG/2 ML IV ONE (22:06)
[2022-02-15] MEDS ORDERED: Hydromorphone 1 mg/ml Injection IV ONE (22:06)
[2022-02-15] MEDS ORDERED: Sodium Chloride 0.9% 1000 ML 1,000 ML IV STA (22:06)
[2022-02-15 22:14] VITALS: BP 102/88
[2022-02-15 22:20] LABS: Appearance CLEAR (CLEAR)
[2022-02-15 22:21] LABS: Bilirubin NEGATIVE (NEGATIVE); Dipstick done @ ? MAIN LAB; Glucose NEGATIVE (NEGATIVE); Ketones NEGATIVE (NEGATIVE); Nitrite NEGATIVE (NEGATIVE); Protein,Urine Dip NEGATIVE (Negative); RBC NEGATIVE Ery/ul (0-5); Urobilinogen 0.2 mg/dL (0-1)
--- NOTE | 2022-02-15 22:22 | ERPHSYRPT ---
- History of Present Illness Time Seen by Provider: 02/15/22 22:05 Historian: patient Exam Limitations: no limitations Patient Subjective Stated Complaint: pt states she began having lt lower abd pain about 2 days ago. states pain has been getting worse and she has been vo miting Triage Nursing Assessment: pt alert and oriented, answers questions approp. pt ambultory with slow steady gait noted. resiprations nonlabored. skin warm and dry. abd soft, pt reports tenderness to lt lower abd with light palpation. hypo bowel sounds noted. pt reports passing flatus. Physician History: Patient is a 46-year-old white female who presents with left lower abdominal pain for 2 days. She did have a resection of her colon because of a hernia rupture in the past and had a colostomy reversal last year by Dr. Eagle. She has had nausea vomiting fever chills or sweats. She has had multiple surgeries including multiple laparoscopies with lithotripsies she has had a cholecystectomy and she has 1 kidney. She does still have her appendix.Patient is currently incarcerated Timing/Duration: day(s) (3) Activities at Onset: none Abdominal Pain Onset Location: RLQ, LLQ Pain Radiation: no radiation Severity of Pain-Max: severe Severity of Pain-Current: severe Associated Symptoms: fever/chills, nausea, vomiting, weakness Previous symptoms: same symptoms as today Allergies/Adverse Reactions: Sulfa (Sulfonamide Antibiotics) Allergy (Intermediate, Verified 02/15/22 22:15) Vomiting bee venom protein (honey bee) Allergy (Verified 02/15/22 22:15) methylprednisolone [From Solu-Medrol] Allergy (Verified 02/15/22 22:15) anger can take oral steroids, IV steroids she cannot take -- states she gets "roid rage" sumatriptan [From Imitrex] Allergy (Verified 02/15/22 22:15) ketorolac [From Toradol] Adverse Reaction (Verified 02/15/22 22:15) Nausea nitrofurantoin [From Macrobid] Adverse Reaction (Verified 02/15/22 22:15) tramadol Adverse Reaction (Verified 02/15/22 22:15) Nausea flu vaccine Allergy (Intermediate, Uncoded 02/15/22 22:15) Hoarseness of voice Home Medications: Gabapentin 600 mg PO QID 06/14/19 [History] Acetaminophen [Tylenol Extra Strength] 2 tab PO Q6H PRN 11/14/20 [History] Butalbit/Acetamin/Caff/Codeine [Fioricet-Cod 78-760-68-30 Cap] 1 each PO BID 11/01/21 [History] Escitalopram Oxalate [Lexapro] 1 ea DAILY 11/01/21 [History] Hx Tetanus, Diphtheria Vaccination/Date Given: Yes Hx Influenza Vaccination/Date Given: No Hx Pneumococcal Vaccination/Date Given: No Immunizations Up to Date: Yes Travel Risk - International Travel Have you traveled outside of the country in past 3 weeks: No - Coronavirus Screening Are you exhibiting any of the following symptoms?: No Close contact with a COVID-19 positive Pt in past 14-21 Days: No - Vaccine Status Have you recieved a Covid-19 vaccination: No - Review of Systems Constitutional: No Fever, No Chills Eyes: No Symptoms Ears, Nose, & Throat: No Symptoms Respiratory: No Cough, No Dyspnea Cardiac: No Chest Pain, No Edema, No Syncope Abdominal/Gastrointestinal: No Abdominal Pain, No Nausea, No Vomiting, No Diarrhea Genitourinary Symptoms: No Dysuria Musculoskeletal: No Back Pain, No Neck Pain Skin: No Rash Neurological: No Dizziness, No Focal Weakness, No Sensory Changes Psychological: No Symptoms Endocrine: No Symptoms All Other Systems: Reviewed and Negative - Past Medical History Pertinent Past Medical History: Yes Neurological History: Migraines ENT History: No Pertinent History Cardiac History: No Pertinent History Respiratory History: No Pertinent History Endocrine Medical History: No Pertinent History Musculoskeletal History: Fibromyalgia GI Medical History: Gallbladder Disease, Other History: Other Psycho-Social History: Bipolar Female Reproductive Disorders: Other Other Medical History: kidney stones, born with 1 kidney - Past Surgical History Past Surgical History: Yes Neuro Surgical History: No Pertinent History Cardiac: No Pertinent History Respiratory: No Pertinent History Gastrointestinal: Bowel Surgery, Cholecystectomy Genitourinary: No Pertinent History Musculoskeletal: No Pertinent History Female Surgical History: Hysterectomy, Section, Tubal Ligation Other Surgical History: skin cancer removed twice, Umbilical hernia repair. ruptured hernia- colostomy and reversal - Social History Smoking Status: Current some day smoker How long have you smoked: 20yrs Exposure to second hand smoke: No Drug Use: none Patient Lives Alone: No (at [facility]) Significant Family History: no pertinent family hx - Female History Hx Last Menstrual Period: hyster Hx Now: No - Nursing Vital Signs Nursing Vital Signs: Initial Vital Signs Temperature 98.3 F 02/15/22 22:01 Pulse Rate 104 H 02/15/22 22:01 Respiratory Rate 18 02/15/22 22:01 Blood Pressure 102/88 02/15/22 22:01 O2 Sat by Pulse Oximetry 99 02/15/22 22:01 Pain Scale Pain Intensity 10 - Physical Exam General Appearance: mild distress, alert Eye Exam: PERRL/EOMI, eyes nml inspection Ears, Nose, Throat Exam: normal ENT inspection, pharynx normal, moist mucous membranes Neck Exam: normal inspection, non-tender, supple, full range of motion Respiratory Exam: normal breath sounds, lungs clear, No respiratory distress Cardiovascular Exam: regular rate/rhythm, normal heart sounds Gastrointestinal/Abdomen Exam: tenderness, guarding, No normal bowel sounds (Decreased bowel sounds), No mass, No rebound Pelvic Exam: not done Rectal Exam: deferred Back Exam: normal inspection, normal range of motion, No CVA tenderness, No vertebral tenderness Extremity Exam: normal inspection, normal range of motion, pelvis stable Neurologic Exam: alert, oriented x 3, cooperative, normal mood/affect, nml cerebellar function, sensation nml, No motor deficits Skin Exam: normal color, warm, dry SpO2 Interpretation: normal SpO2: 99 O2 Delivery: Room Air - Course Nursing assessment & vital signs reviewed: Yes - CT Exams Abdomen/Pelvis CT Interpretation: Negative Ordered Tests: Active Orders 24 hr Category Date Time Status IV Insertion STAT Care 02/15/22 22:06 Active ABDOMEN AND PELVIS W/0 CONTRAS [CT] Stat Exams 02/15/22 22:06 Taken AMYLASE Stat Lab 02/15/22 22:20 Completed CBC W DIFF Stat Lab 02/15/22 22:20 Completed CMP Stat Lab 02/15/22 22:20 Completed LIPASE Stat Lab 02/15/22 22:20 Completed Lactic Acid Stat Lab 02/15/22 22:06 Completed PROTIME WITH INR Stat Lab 02/15/22 22:20 Completed UA W/RFX CULTURE Stat Lab 02/15/22 22:15 Completed Urine Triage Profile Stat Lab 02/15/22 22:15 Completed Medication Summary Discontinued Medications Generic Name Dose Route Start Last Admin Trade Name Freq PRN Reason Stop Dose Admin Hydromorphone HCl 1 mg 02/15/22 22:06 02/15/22 22:45 Hydromorphone 1 Mg/1ml Inj 1 Mg/Ml Syringe IV 02/15/22 22:07 1 mg STAT ONE Administration Hydromorphone HCl Confirm 02/15/22 22:42 Hydromorphone 1 Mg/1ml Inj 1 Mg/Ml Syringe Administered 02/15/22 22:43 Dose 1 mg .ROUTE .STK-MED ONE Sodium Chloride 1,000 mls @ 999 mls/hr 02/15/22 22:06 02/15/22 22:46 Sodium Chloride 0.9% 1000 Ml IV 02/15/22 23:06 999 mls/hr .Q1H1M STA Administration Sodium Chloride Confirm 02/15/22 22:42 Sodium Chloride 0.9% 1000 Ml Administered 02/15/22 22:43 Dose 1,000 mls @ ud .ROUTE .STK-MED ONE Metoclopramide HCl 10 mg 02/15/22 22:06 02/15/22 22:46 Metoclopramide Hcl 10 Mg/2 Ml Vial IV 02/15/22 22:07 10 mg STAT ONE Administration Metoclopramide HCl Confirm 02/15/22 22:42 Metoclopramide Hcl 10 Mg/2 Ml Vial Administered 02/15/22 22:43 Dose 10 mg .ROUTE .STK-MED ONE Lab/Rad Data: Laboratory Result Diagrams 02/15/22 22:20 02/15/22 22:20 Laboratory Results 02/15/22 02/15/22 02/15/22 Range/Units 22:20 22:20 22:20 WBC 9.0 (4.0-10.5) x10^3/uL RBC 4.03 L (4.1-5.4) x10^6/uL Hgb 13.1 (12.0-16.0) g/dL Hct 41.0 (35-47) % MCV 101.7 H (78-100) fL MCH 32.5 H (26-32) pg MCHC 32.0 (32-36) g/dL RDW 12.1 (11.5-14.0) % Plt Count 374 (150-450) x10^3/uL MPV 8.7 (7.5-11.0) fL Gran % 59.1 (36.0-66.0) % Immature Gran % (Auto) 0.2 (0.00-0.4) % Nucleat RBC Rel Count 0.0 (0.00-0.1) % Eos # (Auto) 0.49 (0-0.5) x10^3/uL Immature Gran # (Auto) 0.02 (0.00-0.03) x10^3u/L Absolute Lymphs (auto) 2.39 (1.0-4.6) x10^3/uL Absolute Monos (auto) 0.78 (0.0-1.3) x10^3/uL Absolute Nucleated RBC 0.00 (0.00-0.01) x10^3u/L Lymphocytes % 26.5 (24.0-44.0) % Monocytes % 8.6 (0.0-12.0) % Eosinophils % 5.4 H (0.00-5.0) % Basophils % 0.2 (0.0-0.4) % Absolute Granulocytes 5.33 (1.4-6.9) x10^3/uL Basophils # 0.02 (0-0.4) x10^3/uL PT 9.9 (9.4-12.5) SECONDS INR 0.93 (0.8-3.0) Sodium 138 (137-145) mmol/L Potassium 4.1 (3.5-5.1) mmol/L Chloride 108 H (98-107) mmol/L Carbon Dioxide 19 L (22-30) mmol/L Anion Gap 14.7 (5-15) MEQ/L BUN 16 (7-17) mg/dL Creatinine 0.69 (0.52-1.04) mg/dL Estimated GFR > 60.0 ML/MIN Glucose 78 (74-106) mg/dL Lactic Acid (0.4-2.0) Calcium 9.0 (8.4-10.2) mg/dL Total Bilirubin 0.30 (0.2-1.3) mg/dL AST 30 (14-36) U/L ALT 51 H (0-35) U/L Alkaline Phosphatase 107 (38-126) U/L Serum Total Protein 7.3 (6.3-8.2) g/dL Albumin 4.3 (3.5-5.0) g/dL Amylase 148 H (30-110) U/L Lipase 159 (23-300) U/L Urinalys Dipstick Clnc Urine Color (YELLOW) Urine Appearance (CLEAR) Urine pH (5-6) Ur Specific [place] (1.005-1.025) POC Urine Protein Conf (Negative) Urine Ketones (NEGATIVE) Urine Nitrite (NEGATIVE) Urine Bilirubin (NEGATIVE) Urine Urobilinogen (0-1) mg/dL Urine Leukocytes (NEGATIVE) Urine WBC (Auto) (0-5) /HPF Urine RBC (Auto) (0-2) /HPF U Epithel Cells (Auto) (FEW) /HPF Urine Bacteria (Auto) (NEGATIVE) /HPF Urine RBC (0-5) Ed/ul Ur Culture Indicated? Urine Glucose (NEGATIVE) mg/dL Urine Opiates Level (NEGATIVE) Ur Methadone (NEGATIVE) Urine Barbiturates (NEGATIVE) Ur Phencyclidine (PCP) (NEGATIVE) Urine Amphetamine (NEGATIVE) U Benzodiazepine Level (NEGATIVE) Urine Cocaine (NEGATIVE) Urine Marijuana (THC) (NEGATIVE) 02/15/22 02/15/22 02/15/22 Range/Units 22:15 22:15 22:06 WBC (4.0-10.5) x10^3/uL RBC (4.1-5.4) x10^6/uL Hgb (12.0-16.0) g/dL Hct (35-47) % MCV (78-100) fL MCH (26-32) pg MCHC (32-36) g/dL RDW (11.5-14.0) % Plt Count (150-450) x10^3/uL MPV (7.5-11.0) fL Gran % (36.0-66.0) % Immature Gran % (Auto) (0.00-0.4) % Nucleat RBC Rel Count (0.00-0.1) % Eos # (Auto) (0-0.5) x10^3/uL Immature Gran # (Auto) (0.00-0.03) x10^3u/L Absolute Lymphs (auto) (1.0-4.6) x10^3/uL Absolute Monos (auto) (0.0-1.3) x10^3/uL Absolute Nucleated RBC (0.00-0.01) x10^3u/L Lymphocytes % (24.0-44.0) % Monocytes % (0.0-12.0) % Eosinophils % (0.00-5.0) % Basophils % (0.0-0.4) % Absolute Granulocytes (1.4-6.9) x10^3/uL Basophils # (0-0.4) x10^3/uL PT (9.4-12.5) SECONDS INR (0.8-3.0) Sodium (137-145) mmol/L Potassium (3.5-5.1) mmol/L Chloride (98-107) mmol/L Carbon Dioxide (22-30) mmol/L Anion Gap (5-15) MEQ/L BUN (7-17) mg/dL Creatinine (0.52-1.04) mg/dL Estimated GFR ML/MIN Glucose (74-106) mg/dL Lactic Acid 1.5 (0.4-2.0) Calcium (8.4-10.2) mg/dL Total Bilirubin (0.2-1.3) mg/dL AST (14-36) U/L ALT (0-35) U/L Alkaline Phosphatase (38-126) U/L Serum Total Protein (6.3-8.2) g/dL Albumin (3.5-5.0) g/dL Amylase (30-110) U/L Lipase (23-300) U/L Urinalys Dipstick Clnc MAIN LAB Urine Color YELLOW (YELLOW) Urine Appearance CLEAR (CLEAR) Urine pH 6.0 (5-6) Ur Specific [place] 1.010 (1.005-1.025) POC Urine Protein Conf NEGATIVE (Negative) Urine Ketones NEGATIVE (NEGATIVE) Urine Nitrite NEGATIVE (NEGATIVE) Urine Bilirubin NEGATIVE (NEGATIVE) Urine Urobilinogen 0.2 (0-1) mg/dL Urine Leukocytes TRACE (NEGATIVE) Urine WBC (Auto) NONE (0-5) /HPF Urine RBC (Auto) NONE (0-2) /HPF U Epithel Cells (Auto) RARE (FEW) /HPF Urine Bacteria (Auto) NONE (NEGATIVE) /HPF Urine RBC NEGATIVE (0-5) Ed/ul Ur Culture Indicated? NO Urine Glucose NEGATIVE (NEGATIVE) mg/dL Urine Opiates Level NEGATIVE (NEGATIVE) Ur Methadone NEGATIVE (NEGATIVE) Urine Barbiturates NEGATIVE (NEGATIVE) Ur Phencyclidine (PCP) NEGATIVE (NEGATIVE) Urine Amphetamine NEGATIVE (NEGATIVE) U Benzodiazepine Level NEGATIVE (NEGATIVE) Urine Cocaine NEGATIVE (NEGATIVE) Urine Marijuana (THC) NEGATIVE (NEGATIVE) - Progress Progress: unchanged - Departure Departure Disposition: Home Clinical Impression: Abdominal pain Condition: Stable Critical Care Time: No Referrals: GASTON CAMPUZANO [Primary Care Provider] - Follow up/PCP as directed Instructions: Severe Abdominal Pain, Adult (DC) Prescriptions: Dicyclomine HCl 20 mg [Bentyl 20 mg] 20 mg PO QID 10 Days #40 tablet
[2022-02-15 22:28] LABS: Epithelial Cells RARE /HPF (FEW); Urine Cultured Indicated? NO
[2022-02-15 22:31] LABS: Absolute Neutrophil Ct (ANC) 5.33 x10^3/uL (1.4-6.9); Basophil (Absolute #) 0.02 x10^3/uL (0-0.4); Eosinophil % 5.4 % (0.00-5.0); Eosinophil (Absolute #) 0.49 x10^3/uL (0-0.5); Hemoglobin 13.1 g/dL (12.0-16.0); Lymphocyte (Absolute #) 2.39 x10^3/uL (1.0-4.6); Lymphocytes % 26.5 % (24.0-44.0); Mean Cell Volume 101.7 fL (78-100); Mean Corpuscular Hemoglobin 32.5 pg (26-32); Mean Platelet Volume 8.7 fL (7.5-11.0); Monocyte (Absolute #) 0.78 x10^3/uL (0.0-1.3); Monocytes % 8.6 % (0.0-12.0); Neutrophil % 59.1 % (36.0-66.0); Platelet Count 374 x10^3/uL (150-450); Red Blood Count 4.03 x10^6/uL (4.1-5.4); Red Cell Distribution Width 12.1 % (11.5-14.0)
[2022-02-15 22:36] LABS: Amphetamine,Urine NEGATIVE (NEGATIVE); Barbiturate,Urine NEGATIVE (NEGATIVE); Benzodiazepine,Urine NEGATIVE (NEGATIVE); Cocaine,Urine NEGATIVE (NEGATIVE); Opiate,Urine NEGATIVE (NEGATIVE); PCP,Urine NEGATIVE (NEGATIVE)
[2022-02-15 22:39] LABS: Methadone,Urine NEGATIVE (NEGATIVE); THC,Urine NEGATIVE (NEGATIVE)
[2022-02-15] MEDS ORDERED: Sodium Chloride 0.9% 1000 ML 1,000 ML ONE (22:42)
[2022-02-15] MEDS ORDERED: Hydromorphone 1 mg/ml Injection ONE (22:42)
[2022-02-15] MEDS ORDERED: Reglan 10 MG/2 ML ONE (22:42)
[2022-02-15 22:44] LABS: ALBUMIN 4.3 g/dL (3.5-5.0); ALKALINE PHOSPHATASE 107 U/L (38-126); AMYLASE 148 U/L (30-110); ANION GAP 14.7 MEQ/L (5-15); BLOOD UREA NITROGEN 16 mg/dL (7-17); CHLORIDE 108 mmol/L (98-107); Carbon Dioxide 19 mmol/L (22-30); Creatinine 1 0.69 mg/dL (0.52-1.04); EST GLOMERULAR FILTRATION RATE > 60.0 ML/MIN; Glucose 78 mg/dL (74-106); INR 0.93 (0.8-3.0); LIPASE 159 U/L (23-300); PROTIME 9.9 SECONDS (9.4-12.5); Potassium 4.1 mmol/L (3.5-5.1); SGOT/AST 30 U/L (14-36); SGPT/ALT 51 U/L (0-35); SODIUM 138 mmol/L (137-145); Total Protein 7.3 g/dL (6.3-8.2)
[2022-02-15 23:59] VITALS: PULSE 70; O2SAT 97
--- NOTE | 2022-02-16 08:15 | XRAY ---
Indication: Left abdomen/pelvic pain. Multiple contiguous axial images obtained through the abdomen and pelvis without contrast. Comparison: June 01, 2021 Lung bases again demonstrates tiny calcified granuloma. No infiltrate or effusion. Heart not enlarged. Noncontrasted stomach and bowel loops nonobstructed with intact sigmoid anastomosis. Mild diffuse scattered colonic fecal debris less than before. Again incidental congenitally absent right kidney, nonobstructing left renal punctate calculus, IVC duplication, cholecystectomy, and hysterectomy. No free fluid/air. Remaining liver, pancreas, spleen, adrenal glands, left kidney, left ureter, and urinary bladder are unremarkable for noncontrast exam. There remains minimal aortoiliac calcifications without AAA. Osseous structures intact again with minimal degenerative changes throughout the spine. Impression: 1. Again nonobstructing left renal micro-calculus, IVC duplication, congenitally absent right kidney, and mild fecal stasis. 2. Remaining CT abdomen/pelvis without contrast exam is negative. Comment: Preliminary interpretation made by C. No critical discrepancy.
== END 2022-02-16 00:19 | disposition home or self-care (01) ==
LOC: EEVIPCON 21:41 → ED 21:41
DX: R10.32 Left lower quadrant pain (principal); R11.2 Nausea with vomiting, unspecified; R50.9 Fever, unspecified; Z72.0 Tobacco use; Z79.891 Long term (current) use of opiate analgesic; Z79.899 Other long term (current) drug therapy; Z28.310 Unvaccinated for COVID-19
CPT/HCPCS: 36000; 36415; 74176; 80053; 80307; 81015; 82150; 83605; 83690; 85025; 85610; 96360; 96374; 96375; 99284; J1170

== ENCOUNTER 2022-04-20 15:00 | Observation (INO) | payer OTHER ==
[2022-04-20] MEDS ORDERED: Sodium Chloride 0.9% 1000 ML 1,000 ML IV STA (15:25)
--- NOTE | 2022-04-20 15:39 | ERPHSYRPT ---
- History of Present Illness Time Seen by Provider: 04/20/22 15:35 Source: patient Exam Limitations: clinical condition, intoxication Patient Subjective Stated Complaint: PT spouse states "She got out of shelter and ever since she has been like this. She is all over the place and now she is just out of it. She is like manic." Triage Nursing Assessment: Pt presented alert and oriented X 3, skin pwd.PT ambulates with help. PT mumbling and moving all over the place, pt unable to lay still. Pt speaks to the air. pt answers simple questions. PT gets irritated with her and will yell at her every now and then. Physician History: PT spouse states "She got out of shelter and ever since she has been like this. She is all over the place and now she is just out of it. She is like manic." mumbling and moving all over the place, pt unable to lay still. Pt speaks to the air. pt answers simple questions. Timing/Duration: today (2 hours ago) Severity: moderate Associated Symptoms: cough, chills, fever, weakness Allergies/Adverse Reactions: Sulfa (Sulfonamide Antibiotics) Allergy (Intermediate, Verified 02/15/22 22:15) Vomiting bee venom protein (honey bee) Allergy (Verified 02/15/22 22:15) methylprednisolone [From Solu-Medrol] Allergy (Verified 02/15/22 22:15) anger can take oral steroids, IV steroids she cannot take -- states she gets "roid rage" sumatriptan [From Imitrex] Allergy (Verified 02/15/22 22:15) ketorolac [From Toradol] Adverse Reaction (Verified 02/15/22 22:15) Nausea nitrofurantoin [From Macrobid] Adverse Reaction (Verified 02/15/22 22:15) tramadol Adverse Reaction (Verified 02/15/22 22:15) Nausea flu vaccine Allergy (Intermediate, Uncoded 02/15/22 22:15) Hoarseness of voice Home Medications: Gabapentin 600 mg PO QID 06/14/19 [History] Acetaminophen [Tylenol Extra Strength] 2 tab PO Q6H PRN 11/14/20 [History] Butalbit/Acetamin/Caff/Codeine [Fioricet-Cod [id number] Cap] 1 each PO BID 11/01/21 [History] Escitalopram Oxalate [Lexapro] 1 ea DAILY 11/01/21 [History] Hx Tetanus, Diphtheria Vaccination/Date Given: Yes Hx Influenza Vaccination/Date Given: No Hx Pneumococcal Vaccination/Date Given: No Immunizations Up to Date: Yes Travel Risk - International Travel Have you traveled outside of the country in past 3 weeks: No - Coronavirus Screening Are you exhibiting any of the following symptoms?: Yes Symptoms: Fever - Vaccine Status Have you recieved a Covid-19 vaccination: No - Review of Systems Constitutional: Fever, Chills, Lethargy, Weakness Eyes: No Symptoms Ears, Nose, & Throat: No Symptoms Respiratory: Cough, Wheezing, No Dyspnea Cardiac: No Chest Pain, No Edema, No Syncope Abdominal/Gastrointestinal: No Abdominal Pain, No Nausea, No Vomiting, No Diarrhea Genitourinary Symptoms: No Dysuria Musculoskeletal: No Back Pain, No Neck Pain Skin: No Rash Neurological: No Dizziness, No Focal Weakness, No Sensory Changes Psychological: No Symptoms Endocrine: No Symptoms All Other Systems: Reviewed and Negative - Past Medical History Pertinent Past Medical History: Yes Neurological History: Migraines ENT History: No Pertinent History Cardiac History: No Pertinent History Respiratory History: No Pertinent History Endocrine Medical History: No Pertinent History Musculoskeletal History: Fibromyalgia GI Medical History: Gallbladder Disease, Other History: Other Psycho-Social History: Bipolar Female Reproductive Disorders: Other Other Medical History: kidney stones, born with 1 kidney - Past Surgical History Past Surgical History: Yes Neuro Surgical History: No Pertinent History Cardiac: No Pertinent History Respiratory: No Pertinent History Gastrointestinal: Bowel Surgery, Cholecystectomy Genitourinary: No Pertinent History Musculoskeletal: No Pertinent History Female Surgical History: Hysterectomy, Section, Tubal Ligation Other Surgical History: skin cancer removed twice, Umbilical hernia repair. ruptured hernia- colostomy and reversal - Social History Smoking Status: Current some day smoker How long have you smoked: 20yrs Exposure to second hand smoke: No Drug Use: none Patient Lives Alone: No (at shelter) Significant Family History: no pertinent family hx - Female History Hx Last Menstrual Period: hysterectomy Hx Now: No - Nursing Vital Signs Nursing Vital Signs: Initial Vital Signs Temperature 101.4 F 04/20/22 15:07 Pulse Rate 107 H 04/20/22 15:07 Respiratory Rate 24 04/20/22 15:07 Blood Pressure 121/84 04/20/22 15:07 O2 Sat by Pulse Oximetry 94 L 04/20/22 15:07 Pain Scale Pain Intensity 0 - Physical Exam General Appearance: mild distress, alert, lethargy Eye Exam: PERRL/EOMI, eyes nml inspection Ears, Nose, Throat Exam: normal ENT inspection, TMs normal, pharynx normal, moist mucous membranes Neck Exam: normal inspection, non-tender, supple, full range of motion Respiratory Exam: diminished breath sounds, crackles/rales, rhonchi, wheezing, No respiratory distress Cardiovascular Exam: regular rate/rhythm, normal heart sounds, normal peripheral pulses Gastrointestinal/Abdomen Exam: soft, normal bowel sounds, No tenderness, No mass Back Exam: normal inspection, normal range of motion, No CVA tenderness, No vertebral tenderness Extremity Exam: normal inspection, normal range of motion, pelvis stable Neurologic Exam: sensation nml, disoriented, confusion, intoxicated appearance, No motor deficits Skin Exam: normal color, warm, dry, No rash Lymphatic Exam: No adenopathy SpO2 Interpretation: normal SpO2: 94 O2 Delivery: Room Air - Course Nursing assessment & vital signs reviewed: Yes EKG Interpreted by Me: Sinus Rhythm - Radiology Exams Chest X-ray Interpretation: Reviewed by me, No Infiltrates - CT Exams Head CT Interpretation: Tele-radiologist Report, No/Intracranial Hemorrhag Ordered Tests: Active Orders 24 hr Category Date Time Status Catheter-[place] Sp[facility]ler STAT Care 04/20/22 15:25 Active EKG-ER Only STAT Care 04/20/22 15:25 Active EKG-ER Only STAT Care 04/20/22 15:39 Active Oxygen-ED Only Nasal Cannula 2 lpm Care 04/20/22 15:25 Active CHEST 1 VIEW (PORTABLE) Stat Exams 04/20/22 15:28 Completed HEAD WITHOUT CONTRAST [CT] Stat Exams 04/20/22 15:27 Completed BLOOD CULTURE Stat Lab 04/20/22 15:27 Received CBC W DIFF Stat Lab 04/20/22 16:20 Completed CMP Stat Lab 04/20/22 16:20 Completed CULTURE,URINE Stat Lab 04/20/22 16:22 Received ETHYL ALCOHOL Stat Lab 04/20/22 16:20 Completed Lactic Acid Stat Lab 04/20/22 17:00 Completed MAGNESIUM Stat Lab 04/20/22 16:20 Completed SALICYLATE Stat Lab 04/20/22 16:20 Completed UA W/RFX CULTURE Stat Lab 04/20/22 16:22 Completed Urine Triage Profile Stat Lab 04/20/22 16:28 Completed Medication Summary Discontinued Medications Generic Name Dose Route Start Last Admin Trade Name Yehuda PRN Reason Stop Dose Admin Sodium Chloride 1,000 mls @ 999 mls/hr 04/20/22 15:25 04/20/22 17:16 Sodium Chloride 0.9% 1000 Ml IV 04/20/22 16:25 999 mls/hr .Q1H1M STA Administration Sodium Chloride Confirm 04/20/22 16:28 Sodium Chloride 0.9% 1000 Ml Administered 04/20/22 16:29 Dose 1,000 mls @ ud .ROUTE .STK-MED ONE Lab/Rad Data: Laboratory Result Diagrams 04/20/22 16:20 04/20/22 16:20 Laboratory Results 04/20/22 04/20/22 04/20/22 Range/Units 17:00 16:28 16:22 WBC (4.0-10.5) x10^3/uL RBC (4.1-5.4) x10^6/uL Hgb (12.0-16.0) g/dL Hct (35-47) % MCV (78-100) fL MCH (26-32) pg MCHC (32-36) g/dL RDW (11.5-14.0) % Plt Count (150-450) x10^3/uL MPV (7.5-11.0) fL Gran % (36.0-66.0) % Immature Gran % (Auto) (0.00-0.4) % Nucleat RBC Rel Count (0.00-0.1) % Eos # (Auto) (0-0.5) x10^3/uL Immature Gran # (Auto) (0.00-0.03) x10^3u/L Absolute Lymphs (auto) (1.0-4.6) x10^3/uL Absolute Monos (auto) (0.0-1.3) x10^3/uL Absolute Nucleated RBC (0.00-0.01) x10^3u/L Lymphocytes % (24.0-44.0) % Monocytes % (0.0-12.0) % Eosinophils % (0.00-5.0) % Basophils % (0.0-0.4) % Absolute Granulocytes (1.4-6.9) x10^3/uL Basophils # (0-0.4) x10^3/uL Sodium (137-145) mmol/L Potassium (3.5-5.1) mmol/L Chloride (98-107) mmol/L Carbon Dioxide (22-30) mmol/L Anion Gap (5-15) MEQ/L BUN (7-17) mg/dL Creatinine (0.52-1.04) mg/dL Estimated GFR ML/MIN Glucose (74-106) mg/dL Lactic Acid 1.1 (0.4-2.0) Calcium (8.4-10.2) mg/dL Magnesium (1.6-2.3) mg/dL Total Bilirubin (0.2-1.3) mg/dL AST (14-36) U/L ALT (0-35) U/L Alkaline Phosphatase (38-126) U/L Serum Total Protein (6.3-8.2) g/dL Albumin (3.5-5.0) g/dL Urinalys Dipstick Clnc MAIN LAB Urine Color YELLOW (YELLOW) Urine Appearance CLEAR (CLEAR) Urine pH 6.0 (5-6) Ur Specific [place] 1.025 (1.005-1.025) POC Urine Protein Conf 100 A (Negative) Urine Ketones SMALL-15 A (NEGATIVE) Urine Nitrite NEGATIVE (NEGATIVE) Urine Bilirubin SMALL A (NEGATIVE) Urine Urobilinogen 1 A (0-1) mg/dL Urine Leukocytes TRACE A (NEGATIVE) Urine WBC (Auto) 6-10 A (0-5) /HPF Urine RBC (Auto) 3-5 A (0-2) /HPF U Epithel Cells (Auto) RARE (FEW) /HPF Urine Bacteria (Auto) FEW A (NEGATIVE) /HPF Urine RBC TRACE-INTACT A (0-5) Ed/ul Urine Mucus (Auto) SLIGHT A (NEGATIVE) /HPF Ur Culture Indicated? YES Urine Glucose NEGATIVE (NEGATIVE) mg/dL Salicylates (2-20) mg/dL Urine Opiates Level POSITIVE (NEGATIVE) Ur Methadone NEGATIVE (NEGATIVE) Urine Barbiturates NEGATIVE (NEGATIVE) Ur Phencyclidine (PCP) NEGATIVE (NEGATIVE) Urine Amphetamine NEGATIVE (NEGATIVE) U Benzodiazepine Level NEGATIVE (NEGATIVE) Urine Cocaine NEGATIVE (NEGATIVE) Urine Marijuana (THC) NEGATIVE (NEGATIVE) Ethyl Alcohol (0-10) mg/dL Influenza Type A Ag (NEGATIVE) Influenza Type B Ag (NEGATIVE) RSV (PCR) (Negative) SARS-CoV-2 (PCR) (NEGATIVE) 04/20/22 04/20/22 04/20/22 Range/Units 16:20 16:20 16:20 WBC 6.1 (4.0-10.5) x10^3/uL RBC 3.81 L (4.1-5.4) x10^6/uL Hgb 12.3 (12.0-16.0) g/dL Hct 39.3 (35-47) % MCV 103.1 H (78-100) fL MCH 32.3 H (26-32) pg MCHC 31.3 L (32-36) g/dL RDW 12.5 (11.5-14.0) % Plt Count 246 (150-450) x10^3/uL MPV 8.9 (7.5-11.0) fL Gran % 76.6 H (36.0-66.0) % Immature Gran % (Auto) 0.2 (0.00-0.4) % Nucleat RBC Rel Count 0.0 (0.00-0.1) % Eos # (Auto) 0.04 (0-0.5) x10^3/uL Immature Gran # (Auto) 0.01 (0.00-0.03) x10^3u/L Absolute Lymphs (auto) 0.66 L (1.0-4.6) x10^3/uL Absolute Monos (auto) 0.70 (0.0-1.3) x10^3/uL Absolute Nucleated RBC 0.00 (0.00-0.01) x10^3u/L Lymphocytes % 10.8 L (24.0-44.0) % Monocytes % 11.4 (0.0-12.0) % Eosinophils % 0.7 (0.00-5.0) % Basophils % 0.3 (0.0-0.4) % Absolute Granulocytes 4.70 (1.4-6.9) x10^3/uL Basophils # 0.02 (0-0.4) x10^3/uL Sodium 134 L (137-145) mmol/L Potassium 4.2 (3.5-5.1) mmol/L Chloride 100 (98-107) mmol/L Carbon Dioxide 26 (22-30) mmol/L Anion Gap 11.5 (5-15) MEQ/L BUN 16 (7-17) mg/dL Creatinine 0.80 (0.52-1.04) mg/dL Estimated GFR > 60.0 ML/MIN Glucose 103 (74-106) mg/dL Lactic Acid (0.4-2.0) Calcium 8.3 L (8.4-10.2) mg/dL Magnesium 1.8 (1.6-2.3) mg/dL Total Bilirubin 0.30 (0.2-1.3) mg/dL AST 56 H (14-36) U/L ALT 59 H (0-35) U/L Alkaline Phosphatase 82 (38-126) U/L Serum Total Protein 7.1 (6.3-8.2) g/dL Albumin 4.2 (3.5-5.0) g/dL Urinalys Dipstick Clnc Urine Color (YELLOW) Urine Appearance (CLEAR) Urine pH (5-6) Ur Specific [place] (1.005-1.025) POC Urine Protein Conf (Negative) Urine Ketones (NEGATIVE) Urine Nitrite (NEGATIVE) Urine Bilirubin (NEGATIVE) Urine Urobilinogen (0-1) mg/dL Urine Leukocytes (NEGATIVE) Urine WBC (Auto) (0-5) /HPF Urine RBC (Auto) (0-2) /HPF U Epithel Cells (Auto) (FEW) /HPF Urine Bacteria (Auto) (NEGATIVE) /HPF Urine RBC (0-5) Ed/ul Urine Mucus (Auto) (NEGATIVE) /HPF Ur Culture Indicated? Urine Glucose (NEGATIVE) mg/dL Salicylates < 1.0 L (2-20) mg/dL Urine Opiates Level (NEGATIVE) Ur Methadone (NEGATIVE) Urine Barbiturates (NEGATIVE) Ur Phencyclidine (PCP) (NEGATIVE) Urine Amphetamine (NEGATIVE) U Benzodiazepine Level (NEGATIVE) Urine Cocaine (NEGATIVE) Urine Marijuana (THC) (NEGATIVE) Ethyl Alcohol < 10 (0-10) mg/dL Influenza Type A Ag POSITIVE (NEGATIVE) Influenza Type B Ag NEGATIVE (NEGATIVE) RSV (PCR) NEGATIVE (Negative) SARS-CoV-2 (PCR) NEGATIVE (NEGATIVE) - Progress Progress: unchanged Discussed with : Rahat Counseled pt/family regarding: lab results, diagnosis, need for follow-up, rad results - Departure Departure Disposition: Observation Clinical Impression: Influenza A UTI (urinary tract infection) Qualifiers: Urinary tract infection type: acute cystitis Hematuria presence: without cari turia Qualified Code(s): N30.00 - Acute cystitis without hematuria Condition: Fair Critical Care Time: Yes Critical Care Time(excluding separately billable procedures): Critical 30-74 mins Referrals: GASTON CAMPUZANO [Primary Care Provider] - Follow up/PCP as directed
[2022-04-20 16:20] LABS: Epithelial Cells RARE /HPF (FEW); Mucus SLIGHT /HPF (NEGATIVE)
[2022-04-20 16:22] LABS: Appearance CLEAR (CLEAR); Bilirubin SMALL (NEGATIVE); Dipstick done @ ? MAIN LAB; Glucose NEGATIVE (NEGATIVE); Ketones SMALL-15 (NEGATIVE); Nitrite NEGATIVE (NEGATIVE); Protein,Urine Dip 100 (Negative); RBC TRACE-INTACT Ery/ul (0-5); Specific Gravity 1.025 (1.005-1.025); Urobilinogen 1 mg/dL (0-1)
[2022-04-20 16:24] LABS: Bacteria FEW /HPF (NEGATIVE); Urine Cultured Indicated? YES
[2022-04-20] MEDS ORDERED: Sodium Chloride 0.9% 1000 ML 1,000 ML ONE (16:28)
[2022-04-20 16:32] LABS: Amphetamine,Urine NEGATIVE (NEGATIVE); Barbiturate,Urine NEGATIVE (NEGATIVE); Benzodiazepine,Urine NEGATIVE (NEGATIVE); Cocaine,Urine NEGATIVE (NEGATIVE); Methadone,Urine NEGATIVE (NEGATIVE); Opiate,Urine POSITIVE (NEGATIVE); PCP,Urine NEGATIVE (NEGATIVE); THC,Urine NEGATIVE (NEGATIVE)
[2022-04-20 16:58] LABS: Basophil (Absolute #) 0.02 x10^3/uL (0-0.4); Eosinophil % 0.7 % (0.00-5.0); Eosinophil (Absolute #) 0.04 x10^3/uL (0-0.5); Hematocrit 39.3 % (35-47); Hemoglobin 12.3 g/dL (12.0-16.0); Lymphocyte (Absolute #) 0.66 x10^3/uL (1.0-4.6); Lymphocytes % 10.8 % (24.0-44.0); Mean Cell Volume 103.1 fL (78-100); Mean Corpuscular Hemoglobin 32.3 pg (26-32); Mean Corpuscular Hgb Concent. 31.3 g/dL (32-36); Mean Platelet Volume 8.9 fL (7.5-11.0); Monocytes % 11.4 % (0.0-12.0); Neutrophil % 76.6 % (36.0-66.0); Platelet Count 246 x10^3/uL (150-450); Red Blood Count 3.81 x10^6/uL (4.1-5.4); Red Cell Distribution Width 12.5 % (11.5-14.0); White Blood Count 6.1 x10^3/uL (4.0-10.5)
[2022-04-20 17:18] LABS: ALBUMIN 4.2 g/dL (3.5-5.0); ALKALINE PHOSPHATASE 82 U/L (38-126); ANION GAP 11.5 MEQ/L (5-15); BLOOD UREA NITROGEN 16 mg/dL (7-17); CHLORIDE 100 mmol/L (98-107); Calcium 8.3 mg/dL (8.4-10.2); Carbon Dioxide 26 mmol/L (22-30); EST GLOMERULAR FILTRATION RATE > 60.0 ML/MIN; ETHYL ALCOHOL < 10 mg/dL (0-10); Glucose 103 mg/dL (74-106); MAGNESIUM 1.8 mg/dL (1.6-2.3); Potassium 4.2 mmol/L (3.5-5.1); SALICYLATE < 1.0 mg/dL (2-20); SGOT/AST 56 U/L (14-36); SGPT/ALT 59 U/L (0-35); SODIUM 134 mmol/L (137-145); Total Protein 7.1 g/dL (6.3-8.2)
--- NOTE | 2022-04-20 17:36 | XRAY ---
Indication: Confusion. Comparison: November 27, 2020 Portable chest again demonstrates scattered tiny calcified granulomas. Remaining heart and lungs unremarkable. Bony thorax intact. No new/acute findings.
[2022-04-20 17:37] LABS: INFLUENZA B NEGATIVE (NEGATIVE); RESPIRATORY SYNCTIAL VIRUS NEGATIVE (Negative); SARS-CoV-2 Xpert Express NEGATIVE (NEGATIVE)
[2022-04-20 17:41] LABS: INFLUENZA A POSITIVE (NEGATIVE)
--- NOTE | 2022-04-20 17:50 | XRAY ---
Indication: Confusion. Difficult to wake up. Multiple contiguous axial images obtained through the head without contrast. Comparison: November 01, 2021 Normal appearing brain parenchyma, ventricles, and bony calvarium. Again mild mucosal thickening both ethmoid sinuses. Mastoid air cells are clear. Impression: Continued negative CT head without contrast exam. Again incidental mild paranasal sinus disease. Comment: Preliminary interpretation made by [facility]. No critical discrepancy.
[2022-04-20] MEDS: DUONEB 0.5-3 MG/3 ml Neb IH SCH (19:08)
[2022-04-20] MEDS: TYLENOL 325 MG PO PRN (19:56)
[2022-04-20] MEDS: Sodium Chloride 0.9% W/ 20 mEq KCl/LITER 1,000 ML IV SCH (20:33)
[2022-04-20] MEDS: Tamiflu 75MG Capsule PO SCH (21:05)
[2022-04-20] MEDS: Pepcid 20 MG VIAL IV SCH (21:05)
[2022-04-20] MEDS: Robitussin 100 MG/5 ML PO PRN (21:05)
[2022-04-20] MEDS: Zofran 4 MG/2 ML VIAL IV PRN (21:05)
[2022-04-21] MEDS: DUONEB 0.5-3 MG/3 ml Neb IH SCH ×5 (01:00→19:12)
[2022-04-21] MEDS: TYLENOL 325 MG PO PRN ×5 (04:31→23:59)
[2022-04-21] MEDS: Robitussin 100 MG/5 ML PO PRN ×5 (04:31→23:59)
[2022-04-21 04:42] LABS: Absolute Neutrophil Ct (ANC) 3.63 x10^3/uL (1.4-6.9); Basophil (Absolute #) 0 x10^3/uL (0-0.4); Eosinophil % 0.2 % (0.00-5.0); Eosinophil (Absolute #) 0.01 x10^3/uL (0-0.5); Hematocrit 38.5 % (35-47); Hemoglobin 11.7 g/dL (12.0-16.0); Lymphocyte (Absolute #) 0.75 x10^3/uL (1.0-4.6); Lymphocytes % 14.9 % (24.0-44.0); Mean Cell Volume 104.6 fL (78-100); Mean Corpuscular Hemoglobin 31.8 pg (26-32); Mean Corpuscular Hgb Concent. 30.4 g/dL (32-36); Mean Platelet Volume 8.8 fL (7.5-11.0); Monocyte (Absolute #) 0.62 x10^3/uL (0.0-1.3); Monocytes % 12.4 % (0.0-12.0); Neutrophil % 72.3 % (36.0-66.0); Platelet Count 205 x10^3/uL (150-450); Red Blood Count 3.68 x10^6/uL (4.1-5.4); Red Cell Distribution Width 12.7 % (11.5-14.0)
[2022-04-21 04:54] LABS: ALBUMIN 3.5 g/dL (3.5-5.0); ALKALINE PHOSPHATASE 61 U/L (38-126); ANION GAP 9.9 MEQ/L (5-15); BLOOD UREA NITROGEN 8 mg/dL (7-17); CHLORIDE 105 mmol/L (98-107); Calcium 7.5 mg/dL (8.4-10.2); Carbon Dioxide 21 mmol/L (22-30); EST GLOMERULAR FILTRATION RATE > 60.0 ML/MIN; Glucose 101 mg/dL (74-106); Potassium 4.2 mmol/L (3.5-5.1); SGOT/AST 44 U/L (14-36); SGPT/ALT 47 U/L (0-35); SODIUM 133 mmol/L (137-145); Total Protein 6.4 g/dL (6.3-8.2)
[2022-04-21] MEDS ORDERED: Sodium Chloride 0.9% W/ 20 mEq KCl/LITER 1,000 ML IV ONE (06:12)
[2022-04-21] MEDS: Sodium Chloride 0.9% W/ 20 mEq KCl/LITER 1,000 ML IV SCH ×2 (06:14→16:44)
--- NOTE | 2022-04-21 08:55 | PCM.HP ---
History of Present Illness - Chief Complaint Chief Complaint: confusion, fever for last 2-4 hours History of Present Illness: is a 47 year old female with significant past medical history for bipolar disorder recently discharged from the care home 2 days ago and today morning her found her to be very confused and wasn't running fever with chills. Recently patient Lexapro was increased from 10 mg to 40 mg once he was in the care home. Patient was very confused in emergency room so was not able to answer any question all the history was obtained from patient's . - Review of Systems Constitutional: Fever, Chills, Lethargy, Weakness Eyes: No Symptoms Ears, Nose, & Throat: No Symptoms Respiratory: No Cough, No Short Of Breath Cardiac: No Chest Pain, No Edema, No Syncope Abdominal/Gastrointestinal: No Abdominal Pain, No Nausea, No Vomiting, No Diarrhea Genitourinary Symptoms: No Dysuria Musculoskeletal: No Back Pain, No Neck Pain Skin: No Rash Neurological: Irritability, Lethargy, No Dizziness, No Focal Weakness, No Sensory Changes Psychological: No Symptoms Endocrine: No Symptoms Hematologic/Lymphatic: No Symptoms Immunological/Allergic: No Symptoms Medications & Allergies Home Medications: Home Medication List Gabapentin 600 mg PO QID 06/14/19 [History Confirmed 04/20/22] Acetaminophen [Tylenol Extra Strength] 2 tab PO Q6H PRN 11/14/20 [History Confirmed 04/20/22] Butalbit/Acetamin/Caff/Codeine [Fioricet-Cod [id number] Cap] 1 each PO BID 11/01/21 [History Confirmed 04/20/22] Escitalopram Oxalate [Lexapro] 1 ea DAILY 11/01/21 [History Confirmed 04/20/22] Orphenadrine Citrate 100 mg [Norflex 100 MG Tablet] 100 mg PO BID PRN #10 tab 11/01/21 [Rx Confirmed 04/20/22] Dicyclomine HCl 20 mg [Bentyl 20 mg] 20 mg PO QID 10 Days #40 tablet 02/15/22 [Rx Confirmed 04/20/22] Allergies/Adverse Reactions: Allergies Allergy/AdvReac Type Severity Reaction Status Date / Time Sulfa (Sulfonamide Allergy Intermediate Vomiting Verified 02/15/22 22:15 Antibiotics) bee venom protein (honey bee) Allergy Verified 02/15/22 22:15 methylprednisolone Allergy anger Verified 02/15/22 22:15 [From Solu-Medrol] sumatriptan [From Imitrex] Allergy Verified 02/15/22 22:15 ketorolac [From Toradol] AdvReac Nausea Verified 02/15/22 22:15 nitrofurantoin AdvReac Verified 02/15/22 22:15 [From Macrobid] tramadol AdvReac Nausea Verified 02/15/22 22:15 flu vaccine Allergy Intermediate Hoarseness Uncoded 02/15/22 22:15 of voice - Past Medical History Past Medical History: Yes Neurological History: Migraines ENT History: No Pertinent History Cardiac History: No Pertinent History Respiratory History: No Pertinent History Endocrine Medical History: No Pertinent History Musculoskelatal History: Fibromyalgia GI Medical History: Gallbladder Disease, Other History: Other Pyscho-Social History: Bipolar Reproductive Disorders: Other Comment: kidney stones, born with 1 kidney - Female History Hx Last Menstrual Period: hysterectomy Are you now?: No - Past Surgical History Past Surgical History: Yes Neuro Surgical History: No Pertinent History Cardiac History: No Pertinent History Respiratory Surgery: No Pertinent History GI Surgical History: Bowel Surgery, Cholecystectomy Genitourinary Surgical Hx: No Pertinent History Musculskeletal Surgical Hx: No Pertinent History Female Surgical History: Hysterectomy, Section, Tubal Ligation Other Surgical History: skin cancer removed twice, Umbilical hernia repair. ruptured hernia- colostomy and reversal - Social History Smoking Status: Never smoker How long have you smoked: 20yrs Exposure to second hand smoke: No Alcohol: None Drug Use: methamphetamines, narcotics Significant Family History: no pertinent family hx - Physical Exam Vital Signs: Vital Signs - 24 hr Temp Pulse Resp BP Pulse Ox 04/21/22 08:00 97.7 F 85 18 105/59 95 04/21/22 07:29 85 16 95 04/21/22 04:00 102.7 F 92 H 20 120/63 97 04/20/22 23:43 98.9 F 76 18 98/54 96 04/20/22 20:20 98.9 F 72 20 109/63 92 L 04/20/22 20:00 98.9 F 72 20 109/63 92 L 04/20/22 19:08 84 20 95 04/20/22 17:52 94 L 04/20/22 17:00 101.0 F 84 20 114/67 99 04/20/22 15:07 101.4 F 107 H 24 121/84 94 L General Appearance: moderate distress Neurologic Exam: disoriented, confusion Eye Exam: PERRL/EOMI Ears, Nose, Throat Exam: normal ENT inspection Neck Exam: normal inspection, non-tender Respiratory Exam: diminished breath sounds, crackles/rales, rhonchi Cardiovascular Exam: regular rate/rhythm Gastrointestinal/Abdomen Exam: soft, normal bowel sounds Pelvic Exam: not done Rectal Exam: deferred Back Exam: normal inspection Extremity Exam: normal inspection Skin Exam: normal color Results - Labs Lab/Micro Results: Lab Results-Last 24 Hours 04/20/22 04/20/22 04/20/22 Range/Units 16:20 16:20 16:20 WBC 6.1 (4.0-10.5) x10^3/uL RBC 3.81 L (4.1-5.4) x10^6/uL Hgb 12.3 (12.0-16.0) g/dL Hct 39.3 (35-47) % MCV 103.1 H (78-100) fL MCH 32.3 H (26-32) pg MCHC 31.3 L (32-36) g/dL RDW 12.5 (11.5-14.0) % Plt Count 246 (150-450) x10^3/uL MPV 8.9 (7.5-11.0) fL Gran % 76.6 H (36.0-66.0) % Immature Gran % (Auto) 0.2 (0.00-0.4) % Nucleat RBC Rel Count 0.0 (0.00-0.1) % Eos # (Auto) 0.04 (0-0.5) x10^3/uL Immature Gran # (Auto) 0.01 (0.00-0.03) x10^3u/L Absolute Lymphs (auto) 0.66 L (1.0-4.6) x10^3/uL Absolute Monos (auto) 0.70 (0.0-1.3) x10^3/uL Absolute Nucleated RBC 0.00 (0.00-0.01) x10^3u/L Lymphocytes % 10.8 L (24.0-44.0) % Monocytes % 11.4 (0.0-12.0) % Eosinophils % 0.7 (0.00-5.0) % Basophils % 0.3 (0.0-0.4) % Absolute Granulocytes 4.70 (1.4-6.9) x10^3/uL Basophils # 0.02 (0-0.4) x10^3/uL Sodium 134 L (137-145) mmol/L Potassium 4.2 (3.5-5.1) mmol/L Chloride 100 (98-107) mmol/L Carbon Dioxide 26 (22-30) mmol/L Anion Gap 11.5 (5-15) MEQ/L BUN 16 (7-17) mg/dL Creatinine 0.80 (0.52-1.04) mg/dL Estimated GFR > 60.0 ML/MIN Glucose 103 (74-106) mg/dL Lactic Acid (0.4-2.0) Calcium 8.3 L (8.4-10.2) mg/dL Magnesium 1.8 (1.6-2.3) mg/dL Total Bilirubin 0.30 (0.2-1.3) mg/dL AST 56 H (14-36) U/L ALT 59 H (0-35) U/L Alkaline Phosphatase 82 (38-126) U/L Serum Total Protein 7.1 (6.3-8.2) g/dL Albumin 4.2 (3.5-5.0) g/dL Urinalys Dipstick Clnc Urine Color (YELLOW) Urine Appearance (CLEAR) Urine pH (5-6) Ur Specific [place] (1.005-1.025) POC Urine Protein Conf (Negative) Urine Ketones (NEGATIVE) Urine Nitrite (NEGATIVE) Urine Bilirubin (NEGATIVE) Urine Urobilinogen (0-1) mg/dL Urine Leukocytes (NEGATIVE) Urine WBC (Auto) (0-5) /HPF Urine RBC (Auto) (0-2) /HPF U Epithel Cells (Auto) (FEW) /HPF Urine Bacteria (Auto) (NEGATIVE) /HPF Urine RBC (0-5) Ed/ul Urine Mucus (Auto) (NEGATIVE) /HPF Ur Culture Indicated? Urine Glucose (NEGATIVE) mg/dL Salicylates < 1.0 L (2-20) mg/dL Urine Opiates Level (NEGATIVE) Ur Methadone (NEGATIVE) Urine Barbiturates (NEGATIVE) Ur Phencyclidine (PCP) (NEGATIVE) Urine Amphetamine (NEGATIVE) U Benzodiazepine Level (NEGATIVE) Urine Cocaine (NEGATIVE) Urine Marijuana (THC) (NEGATIVE) Ethyl Alcohol < 10 (0-10) mg/dL Influenza Type A Ag POSITIVE (NEGATIVE) Influenza Type B Ag NEGATIVE (NEGATIVE) RSV (PCR) NEGATIVE (Negative) SARS-CoV-2 (PCR) NEGATIVE (NEGATIVE) 04/20/22 04/20/22 04/20/22 Range/Units 16:22 16:28 17:00 WBC (4.0-10.5) x10^3/uL RBC (4.1-5.4) x10^6/uL Hgb (12.0-16.0) g/dL Hct (35-47) % MCV (78-100) fL MCH (26-32) pg MCHC (32-36) g/dL RDW (11.5-14.0) % Plt Count (150-450) x10^3/uL MPV (7.5-11.0) fL Gran % (36.0-66.0) % Immature Gran % (Auto) (0.00-0.4) % Nucleat RBC Rel Count (0.00-0.1) % Eos # (Auto) (0-0.5) x10^3/uL Immature Gran # (Auto) (0.00-0.03) x10^3u/L Absolute Lymphs (auto) (1.0-4.6) x10^3/uL Absolute Monos (auto) (0.0-1.3) x10^3/uL Absolute Nucleated RBC (0.00-0.01) x10^3u/L Lymphocytes % (24.0-44.0) % Monocytes % (0.0-12.0) % Eosinophils % (0.00-5.0) % Basophils % (0.0-0.4) % Absolute Granulocytes (1.4-6.9) x10^3/uL Basophils # (0-0.4) x10^3/uL Sodium (137-145) mmol/L Potassium (3.5-5.1) mmol/L Chloride (98-107) mmol/L Carbon Dioxide (22-30) mmol/L Anion Gap (5-15) MEQ/L BUN (7-17) mg/dL Creatinine (0.52-1.04) mg/dL Estimated GFR ML/MIN Glucose (74-106) mg/dL Lactic Acid 1.1 (0.4-2.0) Calcium (8.4-10.2) mg/dL Magnesium (1.6-2.3) mg/dL Total Bilirubin (0.2-1.3) mg/dL AST (14-36) U/L ALT (0-35) U/L Alkaline Phosphatase (38-126) U/L Serum Total Protein (6.3-8.2) g/dL Albumin (3.5-5.0) g/dL Urinalys Dipstick Clnc MAIN LAB Urine Color YELLOW (YELLOW) Urine Appearance CLEAR (CLEAR) Urine pH 6.0 (5-6) Ur Specific [place] 1.025 (1.005-1.025) POC Urine Protein Conf 100 A (Negative) Urine Ketones SMALL-15 A (NEGATIVE) Urine Nitrite NEGATIVE (NEGATIVE) Urine Bilirubin SMALL A (NEGATIVE) Urine Urobilinogen 1 A (0-1) mg/dL Urine Leukocytes TRACE A (NEGATIVE) Urine WBC (Auto) 6-10 A (0-5) /HPF Urine RBC (Auto) 3-5 A (0-2) /HPF U Epithel Cells (Auto) RARE (FEW) /HPF Urine Bacteria (Auto) FEW A (NEGATIVE) /HPF Urine RBC TRACE-INTACT A (0-5) Ed/ul Urine Mucus (Auto) SLIGHT A (NEGATIVE) /HPF Ur Culture Indicated? YES Urine Glucose NEGATIVE (NEGATIVE) mg/dL Salicylates (2-20) mg/dL Urine Opiates Level POSITIVE (NEGATIVE) Ur Methadone NEGATIVE (NEGATIVE) Urine Barbiturates NEGATIVE (NEGATIVE) Ur Phencyclidine (PCP) NEGATIVE (NEGATIVE) Urine Amphetamine NEGATIVE (NEGATIVE) U Benzodiazepine Level NEGATIVE (NEGATIVE) Urine Cocaine NEGATIVE (NEGATIVE) Urine Marijuana (THC) NEGATIVE (NEGATIVE) Ethyl Alcohol (0-10) mg/dL Influenza Type A Ag (NEGATIVE) Influenza Type B Ag (NEGATIVE) RSV (PCR) (Negative) SARS-CoV-2 (PCR) (NEGATIVE) 04/21/22 04/21/22 Range/Units 04:25 04:25 WBC 5.0 (4.0-10.5) x10^3/uL RBC 3.68 L (4.1-5.4) x10^6/uL Hgb 11.7 L (12.0-16.0) g/dL Hct 38.5 (35-47) % MCV 104.6 H (78-100) fL MCH 31.8 (26-32) pg MCHC 30.4 L (32-36) g/dL RDW 12.7 (11.5-14.0) % Plt Count 205 (150-450) x10^3/uL MPV 8.8 (7.5-11.0) fL Gran % 72.3 H (36.0-66.0) % Immature Gran % (Auto) 0.2 (0.00-0.4) % Nucleat RBC Rel Count 0.0 (0.00-0.1) % Eos # (Auto) 0.01 (0-0.5) x10^3/uL Immature Gran # (Auto) 0.01 (0.00-0.03) x10^3u/L Absolute Lymphs (auto) 0.75 L (1.0-4.6) x10^3/uL Absolute Monos (auto) 0.62 (0.0-1.3) x10^3/uL Absolute Nucleated RBC 0.00 (0.00-0.01) x10^3u/L Lymphocytes % 14.9 L (24.0-44.0) % Monocytes % 12.4 H (0.0-12.0) % Eosinophils % 0.2 (0.00-5.0) % Basophils % 0.0 (0.0-0.4) % Absolute Granulocytes 3.63 (1.4-6.9) x10^3/uL Basophils # 0 (0-0.4) x10^3/uL Sodium 133 L (137-145) mmol/L Potassium 4.2 (3.5-5.1) mmol/L Chloride 105 (98-107) mmol/L Carbon Dioxide 21 L (22-30) mmol/L Anion Gap 9.9 (5-15) MEQ/L BUN 8 (7-17) mg/dL Creatinine 0.50 L (0.52-1.04) mg/dL Estimated GFR > 60.0 ML/MIN Glucose 101 (74-106) mg/dL Lactic Acid (0.4-2.0) Calcium 7.5 L (8.4-10.2) mg/dL Magnesium (1.6-2.3) mg/dL Total Bilirubin 0.40 (0.2-1.3) mg/dL AST 44 H (14-36) U/L ALT 47 H (0-35) U/L Alkaline Phosphatase 61 (38-126) U/L Serum Total Protein 6.4 (6.3-8.2) g/dL Albumin 3.5 (3.5-5.0) g/dL Urinalys Dipstick Clnc Urine Color (YELLOW) Urine Appearance (CLEAR) Urine pH (5-6) Ur Specific [place] (1.005-1.025) POC Urine Protein Conf (Negative) Urine Ketones (NEGATIVE) Urine Nitrite (NEGATIVE) Urine Bilirubin (NEGATIVE) Urine Urobilinogen (0-1) mg/dL Urine Leukocytes (NEGATIVE) Urine WBC (Auto) (0-5) /HPF Urine RBC (Auto) (0-2) /HPF U Epithel Cells (Auto) (FEW) /HPF Urine Bacteria (Auto) (NEGATIVE) /HPF Urine RBC (0-5) Ed/ul Urine Mucus (Auto) (NEGATIVE) /HPF Ur Culture Indicated? Urine Glucose (NEGATIVE) mg/dL Salicylates (2-20) mg/dL Urine Opiates Level (NEGATIVE) Ur Methadone (NEGATIVE) Urine Barbiturates (NEGATIVE) Ur Phencyclidine (PCP) (NEGATIVE) Urine Amphetamine (NEGATIVE) U Benzodiazepine Level (NEGATIVE) Urine Cocaine (NEGATIVE) Urine Marijuana (THC) (NEGATIVE) Ethyl Alcohol (0-10) mg/dL Influenza Type A Ag (NEGATIVE) Influenza Type B Ag (NEGATIVE) RSV (PCR) (Negative) SARS-CoV-2 (PCR) (NEGATIVE) - Radiology Impressions Radiology Exams & Impressions: Radiology Procedures Category Date Time Status CHEST 1 VIEW (PORTABLE) Stat Exams 04/20/22 15:28 Completed HEAD WITHOUT CONTRAST [CT] Stat Exams 04/20/22 15:27 Completed RAD/CHEST 1 VIEW (PORTABLE) Indication: Confusion. Comparison: November 27, 2020 Portable chest again demonstrates scattered tiny calcified granulomas. Remaining heart and lungs unremarkable. Bony thorax intact. No new/acute findings. CT/HEAD WITHOUT CONTRAST Indication: Confusion. Difficult to wake up. Multiple contiguous axial images obtained through the head without contrast. Comparison: November 01, 2021 Normal appearing brain parenchyma, ventricles, and bony calvarium. Again mild mucosal thickening both ethmoid sinuses. Mastoid air cells are clear. Impression: Continued negative CT head without contrast exam. Again incidental mild paranasal sinus disease. - Other Procedures and Tests Respiratory Therapy 04/20/22 17:53 Oxygen Nasal Cannula 2 lpm 04/20/22 19:52 Respiratory Therapy Assessment DAILY Assessment/Plan (1) Influenza A Current Visit: Yes Status: Acute Assessment & Plan: Chief Complaint Diagnosis UTI, Influenza A Allergies Allergy/AdvReac Type Severity Reaction Status Date / Time Sulfa (Sulfonamide Allergy Intermediate Vomiting Verified 02/15/22 22:15 Antibiotics) bee venom protein (honey bee) Allergy Verified 02/15/22 22:15 methylprednisolone Allergy anger Verified 02/15/22 22:15 [From Solu-Medrol] sumatriptan [From Imitrex] Allergy Verified 02/15/22 22:15 ketorolac [From Toradol] AdvReac Nausea Verified 02/15/22 22:15 nitrofurantoin AdvReac Verified 02/15/22 22:15 [From Macrobid] tramadol AdvReac Nausea Verified 02/15/22 22:15 flu vaccine Allergy Intermediate Hoarseness Uncoded 02/15/22 22:15 of voice Vital Signs (Last 24 hours) Temp Pulse Resp BP Pulse Ox 04/21/22 08:00 97.7 F 85 18 105/59 95 04/21/22 07:29 85 16 95 04/21/22 04:00 102.7 F 92 H 20 120/63 97 04/20/22 23:43 98.9 F 76 18 98/54 96 04/20/22 20:20 98.9 F 72 20 109/63 92 L 04/20/22 20:00 98.9 F 72 20 109/63 92 L 04/20/22 19:08 84 20 95 04/20/22 17:52 94 L 04/20/22 17:00 101.0 F 84 20 114/67 99 04/20/22 15:07 101.4 F 107 H 24 121/84 94 L Current Medications Generic Name Dose Route Start Last Admin Trade Name Freq PRN Reason Stop Dose Admin Acetaminophen 650 mg 04/20/22 17:53 04/21/22 04:31 Acetaminophen 325 Mg Tablet PO 05/20/22 17:52 650 mg Q4H PRN PRN Administration PAIN AND/OR FEVER Albuterol/Ipratropium 3 ml 04/20/22 19:00 04/21/22 07:28 Ipratropium/Albuterol Sulfate 3 Ml Ampul.Neb IH 05/20/22 18:59 Not Given Q6HRT OMAR Famotidine 20 mg 04/20/22 22:00 04/20/22 21:05 Famotidine 20 Mg/1 Vial IV 05/20/22 21:59 20 mg Q12HT OMAR Administration Guaifenesin 5 ml 04/20/22 20:57 04/21/22 04:31 Guaifenesin 100 Mg/5 Ml 118 Ml Bottle PO 05/20/22 20:56 5 ml Q4H PRN PRN Administration COUGH Potassium Chloride/Sodium Chloride 1,000 mls @ 100 mls/hr 04/20/22 18:00 04/21/22 06:14 Sodium Chloride 0.9% W/ 20 Meq Kcl/Liter IV 05/20/22 17:59 100 mls/hr .Q10H OMAR Administration Ceftriaxone Sodium/Dextrose 1 g in 50 mls @ 100 mls/hr 04/21/22 10:00 Rocephin 1 Gm-D5w 50 Ml Bag IV 04/24/22 09:59 Q24H10 OMAR Ondansetron HCl 4 mg 04/20/22 20:58 04/20/22 21:05 Ondansetron Hcl 4 Mg/2 Ml Vial IV 05/20/22 20:57 4 mg Q4H PRN PRN Administration NAUSEA/VOMITING Oseltamivir Phosphate 75 mg 04/20/22 22:00 04/20/22 21:05 Oseltamivir 75 Mg Cap PO 04/25/22 21:59 75 mg BID OMAR Administration Pantoprazole Sodium 40 mg 04/21/22 10:00 Pantoprazole 40 Mg Vial IV 05/21/22 09:59 Q24H10 OMAR Discontinued Medications Generic Name Dose Route Start Last Admin Trade Name Freq PRN Reason Stop Dose Admin Sodium Chloride 1,000 mls @ 999 mls/hr 04/20/22 15:25 04/20/22 17:16 Sodium Chloride 0.9% 1000 Ml IV 04/20/22 16:25 999 mls/hr .Q1H1M STA Administration Sodium Chloride Confirm 04/20/22 16:28 Sodium Chloride 0.9% 1000 Ml Administered 04/20/22 16:29 Dose 1,000 mls @ ud .ROUTE .STK-MED ONE Potassium Chloride/Sodium Chloride Confirm 04/21/22 06:12 Sodium Chloride 0.9% W/ 20 Meq Kcl/Liter Administered 04/21/22 06:13 Dose 1,000 mls @ ud IV .STK-MED ONE Intake & Output (Last 24 hours) 04/18/22 04/19/22 04/20/22 04/21/22 11:59 11:59 11:59 11:59 Intake Total 1597 Output Total 2900 Balance -1303 Weight 76.3 kg Microbiology Results (Last 24 hours) 04/20/22 16:20 Blood Blood Culture Gram Stain - Pending 04/20/22 16:20 Blood Blood Culture - Pending 04/20/22 16:22 Urine, Void Urine Culture - Pending Laboratory Results (Last 24 hours) 04/21/22 04/21/22 04/20/22 04:25 04:25 17:00 WBC 5.0 RBC 3.68 L Hgb 11.7 L Hct 38.5 MCV 104.6 H MCH 31.8 MCHC 30.4 L RDW 12.7 Plt Count 205 MPV 8.8 Gran % 72.3 H Immature Gran % (Auto) 0.2 Nucleat RBC Rel Count 0.0 Eos # (Auto) 0.01 Immature Gran # (Auto) 0.01 Absolute Lymphs (auto) 0.75 L Absolute Monos (auto) 0.62 Absolute Nucleated RBC 0.00 Lymphocytes % 14.9 L Monocytes % 12.4 H Eosinophils % 0.2 Basophils % 0.0 Absolute Granulocytes 3.63 Basophils # 0 Sodium 133 L Potassium 4.2 Chloride 105 Carbon Dioxide 21 L Anion Gap 9.9 BUN 8 Creatinine 0.50 L Estimated GFR > 60.0 Glucose 101 Lactic Acid 1.1 Calcium 7.5 L Magnesium Total Bilirubin 0.40 AST 44 H ALT 47 H Alkaline Phosphatase 61 Serum Total Protein 6.4 Albumin 3.5 Urinalys Dipstick Clnc Urine Color Urine Appearance Urine pH Ur Specific [place] POC Urine Protein Conf Urine Ketones Urine Nitrite Urine Bilirubin Urine Urobilinogen Urine Leukocytes Urine WBC (Auto) Urine RBC (Auto) U Epithel Cells (Auto) Urine Bacteria (Auto) Urine RBC Urine Mucus (Auto) Ur Culture Indicated? Urine Glucose Salicylates Urine Opiates Level Ur Methadone Urine Barbiturates Ur Phencyclidine (PCP) Urine Amphetamine U Benzodiazepine Level Urine Cocaine Urine Marijuana (THC) Ethyl Alcohol Influenza Type A Ag Influenza Type B Ag RSV (PCR) SARS-CoV-2 (PCR) 04/20/22 04/20/22 04/20/22 16:28 16:22 16:20 WBC RBC Hgb Hct MCV MCH MCHC RDW Plt Count MPV Gran % Immature Gran % (Auto) Nucleat RBC Rel Count Eos # (Auto) Immature Gran # (Auto) Absolute Lymphs (auto) Absolute Monos (auto) Absolute Nucleated RBC Lymphocytes % Monocytes % Eosinophils % Basophils % Absolute Granulocytes Basophils # Sodium Potassium Chloride Carbon Dioxide Anion Gap BUN Creatinine Estimated GFR Glucose Lactic Acid Calcium Magnesium Total Bilirubin AST ALT Alkaline Phosphatase Serum Total Protein Albumin Urinalys Dipstick Clnc MAIN LAB Urine Color YELLOW Urine Appearance CLEAR Urine pH 6.0 Ur Specific [place] 1.025 POC Urine Protein Conf 100 A Urine Ketones SMALL-15 A Urine Nitrite NEGATIVE Urine Bilirubin SMALL A Urine Urobilinogen 1 A Urine Leukocytes TRACE A Urine WBC (Auto) 6-10 A Urine RBC (Auto) 3-5 A U Epithel Cells (Auto) RARE Urine Bacteria (Auto) FEW A Urine RBC TRACE-INTACT A Urine Mucus (Auto) SLIGHT A Ur Culture Indicated? YES Urine Glucose NEGATIVE Salicylates Urine Opiates Level POSITIVE Ur Methadone NEGATIVE Urine Barbiturates NEGATIVE Ur Phencyclidine (PCP) NEGATIVE Urine Amphetamine NEGATIVE U Benzodiazepine Level NEGATIVE Urine Cocaine NEGATIVE Urine Marijuana (THC) NEGATIVE Ethyl Alcohol Influenza Type A Ag POSITIVE Influenza Type B Ag NEGATIVE RSV (PCR) NEGATIVE SARS-CoV-2 (PCR) NEGATIVE 04/20/22 04/20/22 16:20 16:20 WBC 6.1 RBC 3.81 L Hgb 12.3 Hct 39.3 MCV 103.1 H MCH 32.3 H MCHC 31.3 L RDW 12.5 Plt Count 246 MPV 8.9 Gran % 76.6 H Immature Gran % (Auto) 0.2 Nucleat RBC Rel Count 0.0 Eos # (Auto) 0.04 Immature Gran # (Auto) 0.01 Absolute Lymphs (auto) 0.66 L Absolute Monos (auto) 0.70 Absolute Nucleated RBC 0.00 Lymphocytes % 10.8 L Monocytes % 11.4 Eosinophils % 0.7 Basophils % 0.3 Absolute Granulocytes 4.70 Basophils # 0.02 Sodium 134 L Potassium 4.2 Chloride 100 Carbon Dioxide 26 Anion Gap 11.5 BUN 16 Creatinine 0.80 Estimated GFR > 60.0 Glucose 103 Lactic Acid Calcium 8.3 L Magnesium 1.8 Total Bilirubin 0.30 AST 56 H ALT 59 H Alkaline Phosphatase 82 Serum Total Protein 7.1 Albumin 4.2 Urinalys Dipstick Clnc Urine Color Urine Appearance Urine pH Ur Specific [place] POC Urine Protein Conf Urine Ketones Urine Nitrite Urine Bilirubin Urine Urobilinogen Urine Leukocytes Urine WBC (Auto) Urine RBC (Auto) U Epithel Cells (Auto) Urine Bacteria (Auto) Urine RBC Urine Mucus (Auto) Ur Culture Indicated? Urine Glucose Salicylates < 1.0 L Urine Opiates Level Ur Methadone Urine Barbiturates Ur Phencyclidine (PCP) Urine Amphetamine U Benzodiazepine Level Urine Cocaine Urine Marijuana (THC) Ethyl Alcohol < 10 Influenza Type A Ag Influenza Type B Ag RSV (PCR) SARS-CoV-2 (PCR) Orders (Last 24 hours) Category Date Time Status Catheter-[place] Spangler STAT Care 04/20/22 15:25 Active Code Status Order ROUTINE Care 04/20/22 17:53 Active EKG-ER Only STAT Care 04/20/22 15:25 Active EKG-ER Only STAT Care 04/20/22 15:39 Active Fall Protocol ROUTINE Care 04/20/22 17:54 Completed IV Care Q6H Care 04/20/22 17:53 Active Oxygen-ED Only Nasal Cannula 2 lpm Care 04/20/22 15:[address] in Observation ROUTINE Care 04/20/22 17:53 Active Gopal Gibson, Brittany ROUTINE Care 04/20/22 17:53 Active Heart-Healthy Diet Diet 04/20/22 Dinner Active CHEST 1 VIEW (PORTABLE) Stat Exams 04/20/22 15:28 Completed HEAD WITHOUT CONTRAST [CT] Stat Exams 04/20/22 15:27 Completed BLOOD CULTURE Stat Lab 04/20/22 15:27 Received CBC W DIFF AM.LAB Lab 04/21/22 04:25 Completed CBC W DIFF Stat Lab 04/20/22 16:20 Completed CMP AM.LAB Lab 04/21/22 04:25 Completed CMP Stat Lab 04/20/22 16:20 Completed COVID/FLU/RSV Panel Stat Lab 04/20/22 16:20 Completed CULTURE,URINE Stat Lab 04/20/22 16:22 Received ETHYL ALCOHOL Stat Lab 04/20/22 16:20 Completed Lactic Acid Stat Lab 04/20/22 17:00 Completed MAGNESIUM Stat Lab 04/20/22 16:20 Completed SALICYLATE Stat Lab 04/20/22 16:20 Completed UA W/RFX CULTURE Stat Lab 04/20/22 16:22 Completed Urine Triage Profile Stat Lab 04/20/22 16:28 Completed Acetaminophen 325 mg [Tylenol 325 mg] Med 04/20/22 17:53 Active 650 mg PO Q4H PRN PRN Albuterol/Ipratropium 3ml Neb* [DUONEB 0.5-3 MG/3 ml Med 04/20/22 19:00 Active Neb] 3 ml IH Q6HRT Ceftriaxone 1 GM/50 ML PREMIX* [ROCEPHIN 1 Gm-D5w 50 ml Med 04/21/22 10:00 Active Bag] 1 g in 50 ml IV Q24H10 Famotidine 20 mg Vial [Pepcid 20 MG VIAL] Med 04/20/22 22:00 Active 20 mg IV Q12HT Guaifenesin 100 mg/5 ml [Robitussin 100 MG/5 ML] Med 04/20/22 20:57 Active 5 ml PO Q4H PRN PRN NaCl 0.9% 1000 ml + KCl 20 Meq [Sodium Chloride 0.9% W/ Med 04/20/22 18:00 Active 20 mEq KCl/LITER] 1,000 ml IV 100 mls/hr NaCl 0.9% 1000 ml + KCl 20 Meq [Sodium Chloride 0.9% W/ Med 04/21/22 06:12 Discontinued 20 mEq KCl/LITER] 1,000 ml IV UD NaCl 0.9% 1000 ml [Sodium Chloride 0.9% 1000 ML] 1,000 Med 04/20/22 16:28 Discontinued ml .ROUTE UD NaCl 0.9% 1000 ml [Sodium Chloride 0.9% 1000 ML] 1,000 Med 04/20/22 15:25 Discontinued ml IV 999 mls/hr Ondansetron HCl 4 mg/2 ml [Zofran 4 MG/2 ML VIAL] Med 04/20/22 20:58 Active 4 mg IV Q4H PRN PRN Oseltamivir 75 mg [Tamiflu 75MG Capsule] Med 04/20/22 22:00 Active 75 mg PO BID Pantoprazole 40 mg [Protonix 40 mg IV] Med 04/21/22 10:00 Active 40 mg IV Q24H10 Oxygen Nasal Cannula 2 lpm RT 04/20/22 17:53 Active Pulse Oximetry .spot check RT 04/20/22 19:51 Active Respiratory Therapy Assessment DAILY RT 04/20/22 19:52 Active Smoking Cessation Education ONCE RT 04/20/22 19:52 Completed Patient Care Notes (Last 24 hours) 04/21/22 01:35 Respiratory Note by Katerine Alicia Pt refused scheduled neb tx at 0100. Initialized on 04/21/22 01:35 - END OF NOTE Code(s): J10.1 - FLU DUE TO OTH IDENT INFLUENZA VIRUS W OTH RESP MANIFEST (2) UTI (urinary tract infection) Current Visit: Yes Status: Acute Qualifiers: Urinary tract infection type: acute cystitis Hematuria presence: without hematuria Qualified Code(s): N30.00 - Acute cystitis without hematuria Code(s): N39.0 - URINARY TRACT INFECTION, SITE NOT SPECIFIED (3) Altered mental status Current Visit: No Status: Acute Code(s): R41.82 - ALTERED MENTAL STATUS, UNSPECIFIED
[2022-04-21] MEDS: ROCEPHIN 1 Gm-D5w 50 ml Bag** 1 G/50 ML IVPB IV SCH (10:45)
[2022-04-21] MEDS: PROTONIX 40 MG IV IV SCH (10:45)
[2022-04-21] MEDS: Tamiflu 75MG Capsule PO SCH ×2 (10:45→22:01)
[2022-04-21] MEDS: Pepcid 20 MG VIAL IV SCH ×2 (10:45→22:01)
[2022-04-21] MEDS: Zofran 4 MG/2 ML VIAL IV PRN ×4 (10:55→23:57)
[2022-04-22] MEDS: DUONEB 0.5-3 MG/3 ml Neb IH SCH (01:00)
[2022-04-22] MEDS: Sodium Chloride 0.9% W/ 20 mEq KCl/LITER 1,000 ML IV SCH ×2 (01:22→13:23)
[2022-04-22] MEDS ORDERED: DUONEB 0.5-3 MG/3 ml Neb IH PRN (03:11)
[2022-04-22] MEDS: Zofran 4 MG/2 ML VIAL IV PRN ×4 (04:27→16:17)
[2022-04-22] MEDS: TYLENOL 325 MG PO PRN ×3 (04:28→16:02)
[2022-04-22] MEDS: Robitussin 100 MG/5 ML PO PRN ×3 (04:29→13:23)
[2022-04-22] MEDS: Tamiflu 75MG Capsule PO SCH (08:22)
[2022-04-22] MEDS: ROCEPHIN 1 Gm-D5w 50 ml Bag** 1 G/50 ML IVPB IV SCH (08:23)
[2022-04-22] MEDS: PROTONIX 40 MG IV IV SCH (08:23)
[2022-04-22] MEDS: Pepcid 20 MG VIAL IV SCH (08:23)
[2022-04-22] MEDS ORDERED: TORAdol 30 mg Injection IV ONE (13:30)
--- NOTE | 2022-04-22 14:19 | PCM.NOTE ---
Date and Time: 04/22/221416 Subjective Assessment: doing better. Awaiting Psych facility placement - Review of Systems Constitutional: No Fever, No Chills Eyes: No Symptoms Ears, Nose, & Throat: No Symptoms Respiratory: No Cough, No Short Of Breath Cardiac: No Chest Pain, No Edema, No Syncope Abdominal/Gastrointestinal: No Abdominal Pain, No Nausea, No Vomiting, No Diarrhea Genitourinary Symptoms: No Dysuria Musculoskeletal: No Back Pain, No Neck Pain Skin: No Rash Neurological: No Dizziness, No Focal Weakness, No Sensory Changes Psychological: Anxiety, Depression, Emotional Lability, Hallucinations Endocrine: No Symptoms Hematologic/Lymphatic: No Symptoms Immunological/Allergic: No Symptoms Objective Exam General Appearance: no apparent distress, alert Neurologic Exam: alert, oriented x 3, cooperative, normal mood/affect, nml cerebellar function, sensation nml, No motor deficits Skin Exam: normal color, warm, dry Eye Exam: PERRL, EOMI, eyes nml inspection Ears, Nose, Throat Exam: normal ENT inspection, pharynx normal, moist mucous membranes Neck Exam: normal inspection, non-tender, supple, full range of motion Respiratory Exam: diminished breath sounds, No respiratory distress Cardiovascular Exam: regular rate/rhythm, normal heart sounds Gastrointestinal/Abdomen Exam: soft, No tenderness, No mass Extremity Exam: normal inspection, normal range of motion Back Exam: normal inspection, normal range of motion, No CVA tenderness, No vertebral tenderness Pelvic Exam: deferred Rectal Exam: deferred OBJECTIVE DATA Vital Signs: Vital Signs - 24 hr Temp Pulse Resp BP Pulse Ox 04/22/22 11:43 97.9 F 69 16 102/58 95 04/22/22 08:00 96.1 F 76 17 102/59 94 L 04/22/22 07:18 72 18 92 L 04/22/22 04:00 97.8 F 90 18 96/51 96 04/21/22 23:20 98.7 F 91 H 18 97/57 95 04/21/22 19:49 98.6 F 92 H 19 102/55 97 04/21/22 18:36 81 18 93 L 04/21/22 16:00 98 F 76 18 104/55 96 Pain Assessment - Last Documented Pain Intensity 8 Pain Scale Used 0-10 Pain Scale Intake and Output: Intake & Output 04/20/22 04/21/22 04/22/22 04/23/22 11:59 11:59 11:59 11:59 Intake Total 1597 4013 0 Output Total 2900 3400 Balance -1303 613 0 Weight 76.3 kg Radiology Exams: Radiology Procedures Category Date Time Status CHEST 1 VIEW (PORTABLE) Stat Exams 04/20/22 15:28 Completed HEAD WITHOUT CONTRAST [CT] Stat Exams 04/20/22 15:27 Completed Multi-Disciplinary Progress Notes: Multi-Disciplinary Progress Notes 04/22/22 13:07 Case Management Note by Michaela Schroeder CASE MANAGEMENT ASSESSMENT DEFERRED. AWAITING PLACEMENT FOR INPT PSYCH. Initialized on 04/22/22 13:07 - END OF NOTE 04/22/22 03:12 Respiratory Note by Katerine Alicia Pt continues to refuse scheduled tx. changed to Duoneb Q4PRN. Initialized on 04/22/22 03:12 - END OF NOTE 04/22/22 01:25 Respiratory Note by Katerine Alicia Pt refuses scheduled neb tx and all assessments at this time. Initialized on 04/22/22 01:25 - END OF NOTE Assessment/Plan (1) Influenza A Current Visit: Yes Status: Acute Assessment & Plan: Chief Complaint Diagnosis confusion, fever for last 2-4 hours Allergies Allergy/AdvReac Type Severity Reaction Status Date / Time Sulfa (Sulfonamide Allergy Intermediate Vomiting Verified 02/15/22 22:15 Antibiotics) bee venom protein (honey bee) Allergy Verified 02/15/22 22:15 methylprednisolone Allergy anger Verified 02/15/22 22:15 [From Solu-Medrol] sumatriptan [From Imitrex] Allergy Verified 02/15/22 22:15 nitrofurantoin AdvReac Verified 02/15/22 22:15 [From Macrobid] tramadol AdvReac Nausea Verified 02/15/22 22:15 flu vaccine Allergy Intermediate Hoarseness Uncoded 02/15/22 22:15 of voice Vital Signs (Last 24 hours) Temp Pulse Resp BP Pulse Ox 04/22/22 11:43 97.9 F 69 16 102/58 95 04/22/22 08:00 96.1 F 76 17 102/59 94 L 04/22/22 07:18 72 18 92 L 04/22/22 04:00 97.8 F 90 18 96/51 96 04/21/22 23:20 98.7 F 91 H 18 97/57 95 04/21/22 19:49 98.6 F 92 H 19 102/55 97 04/21/22 18:36 81 18 93 L 04/21/22 16:00 98 F 76 18 104/55 96 Home Medications Medication Instructions Recorded Confirmed Last Taken Type Oseltamivir 75 mg [Tamiflu 75MG 75 mg PO BID #7 cap 04/22/22 Unknown Rx Capsule] Current Medications Generic Name Dose Route Start Last Admin Trade Name Freq PRN Reason Stop Dose Admin Acetaminophen 650 mg 04/20/22 17:53 04/22/22 08:22 Acetaminophen 325 Mg Tablet PO 05/20/22 17:52 650 mg Q4H PRN PRN Administration PAIN AND/OR FEVER Albuterol/Ipratropium 3 ml 04/22/22 03:11 Ipratropium/Albuterol Sulfate 3 Ml Ampul.Neb IH 05/22/22 03:10 Q4HPRN PRN SHORTNESS OF BREATH/WHEEZING Famotidine 20 mg 04/20/22 22:00 04/22/22 08:23 Famotidine 20 Mg/1 Vial IV 05/20/22 21:59 20 mg Q12HT OMAR Administration Guaifenesin 5 ml 04/20/22 20:57 04/22/22 13:23 Guaifenesin 100 Mg/5 Ml 118 Ml Bottle PO 05/20/22 20:56 5 ml Q4H PRN PRN Administration COUGH Potassium Chloride/Sodium Chloride 1,000 mls @ 100 mls/hr 04/20/22 18:00 04/22/22 13:23 Sodium Chloride 0.9% W/ 20 Meq Kcl/Liter IV 05/20/22 17:59 100 mls/hr .Q10H OMAR Administration Ceftriaxone Sodium/Dextrose 1 g in 50 mls @ 100 mls/hr 04/21/22 10:00 04/22/22 08:23 Rocephin 1 Gm-D5w 50 Ml Bag IV 04/24/22 09:59 100 mls/hr Q24H10 OMAR Administration Ondansetron HCl 4 mg 04/20/22 20:58 04/22/22 13:23 Ondansetron Hcl 4 Mg/2 Ml Vial IV 05/20/22 20:57 4 mg Q4H PRN PRN Administration NAUSEA/VOMITING Oseltamivir Phosphate 75 mg 04/20/22 22:00 04/22/22 08:22 Oseltamivir 75 Mg Cap PO 04/25/22 21:59 75 mg BID OMAR Administration Pantoprazole Sodium 40 mg 04/21/22 10:00 04/22/22 08:23 Pantoprazole 40 Mg Vial IV 05/21/22 09:59 40 mg Q24H10 OMAR Administration Discontinued Medications Generic Name Dose Route Start Last Admin Trade Name Frecedric PRN Reason Stop Dose Admin Albuterol/Ipratropium 3 ml 04/20/22 19:00 04/22/22 01:00 Ipratropium/Albuterol Sulfate 3 Ml Ampul.Neb IH 05/20/22 18:59 Not Given Q6HRT OMAR Sodium Chloride 1,000 mls @ 999 mls/hr 04/20/22 15:25 04/20/22 17:16 Sodium Chloride 0.9% 1000 Ml IV 04/20/22 16:25 999 mls/hr .Q1H1M STA Administration Sodium Chloride Confirm 04/20/22 16:28 Sodium Chloride 0.9% 1000 Ml Administered 04/20/22 16:29 Dose 1,000 mls @ ud .ROUTE .STK-MED ONE Potassium Chloride/Sodium Chloride Confirm 04/21/22 06:12 Sodium Chloride 0.9% W/ 20 Meq Kcl/Liter Administered 04/21/22 06:13 Dose 1,000 mls @ ud IV .STK-MED ONE Ketorolac Tromethamine 60 mg 04/22/22 13:30 04/22/22 14:06 Ketorolac Tromethamine 30 Mg/Ml Inj IV 04/22/22 13:31 60 mg ONCE ONE Administration Intake & Output (Last 24 hours) 04/20/22 04/21/22 04/22/22 04/23/22 11:59 11:59 11:59 11:59 Intake Total 1597 4013 0 Output Total 2900 3400 Balance -1303 613 0 Weight 76.3 kg Microbiology Results (Last 24 hours) 04/20/22 16:22 Urine, Void Urine Culture - Final MIXED JAMIE; 3 OR MORE TYPES. NO PREDOMINANT ORGANISM. NO FURTHER WORKUP. PLEASE RESUBMIT IF CLINICALLY INDICATED. Orders (Last 24 hours) Category Date Time Status ConsultShayy [Psychiatric Consult] STAT Cons 04/21/22 14:09 Completed Discharge Routine Discharge 04/22/22 Ordered Albuterol/Ipratropium 3ml Neb* [DUONEB 0.5-3 MG/3 ml Med 04/22/22 03:11 Active Neb] 3 ml IH Q4HPRN PRN KETOROLAC trometh 30 mg Inj [TORAdol 30 mg Injection Med 04/22/22 13:30 Discontinued ] 60 mg IV ONCE ONE Patient Care Notes (Last 24 hours) 04/22/22 13:33 Nursing Note by Dyan Mclean REC. ORDER FROM DR. RIOS FOR TORADOL 60MG IV ONCE FOR BODY ACHES. PT HAS MEDICATION LISTED AN ALLERGY WITH A REACTION OF NAUSEA. DISCUSSED THIS WITH PT AND SHE STATES THIS IS NOT A TRUE ALLERGY FOR HER AND IS REQUESTING IT BE REMOVED FROM LIST. AWARE AND AGREES. Initialized on 04/22/22 13:33 - END OF NOTE 04/22/22 13:07 Case Management Note by Michaela Schroeder CASE MANAGEMENT ASSESSMENT DEFERRED. AWAITING PLACEMENT FOR INPT PSYCH. Initialized on 04/22/22 13:07 - END OF NOTE 04/22/22 10:18 Nursing Note by Ashley Turk I faxed patients chest xray and covid/flu report to [facility] [phone]. Initialized on 04/22/22 10:18 - END OF NOTE 04/22/22 10:05 (created 04/22/22 10:18) Nursing Note by Domonique Pollack Spoke with Talya from [facility]. They are needing the labs for Covid/flu/RSV swab. As well as confirmation for the pneumonia. Notified them the chest xray does not show anything acute. Had Ashley SWARTZ send over requested documentation to [facility] at this time. Initialized on 04/22/22 10:18 - END OF NOTE 04/22/22 09:08 Nursing Note by Ashley Turk I faxed to [facility] [phone] updated vitals and labs from past 24 hours. Initialized on 04/22/22 09:08 - END OF NOTE 04/22/22 09:06 Nursing Note by Dyan Mclean DISCUSSED WITH DR. RIOS THAT PT WAS ACCEPTED AT THE [facility] BUT NEEDED TO BE MEDICALLY CLEARED BEFORE TRANSPORT. REVIEWED VITAL SIGNS AND LABS. PT HAS BEEN FEVER FREE OVER 24 HRS AND HAS ALREADY REC. 5 DOSES OF [address] PER [address]. RIOS PT IS MEDICALLY CLEARED AND IS ABLE TO BE DISCHARGED TO [facility] TODAY 04/22/22. PT WILL BE DISCHARGED WITH TAMIFLU 75MG PO BID X 3 MORE DAYS. Initialized on 04/22/22 09:06 - END OF NOTE 04/22/22 08:57 Nursing Note by Domonique Pollack Spoke with Rohit at [facility]. Notified him of the patients condition, they stated they were waiting for the patient to be medically cleared. Notified him that the patient has been afebrile for over 29 hours and that she has already had 5 doses of tamiflu and that Dr Rios has medically cleared her at this time. He stated that he would have the team review her chart and stated to send over any updated labs and vitals at this time to [phone]. Having [facility] send everything over now. he stated we should hear something back this morning/ early afternoon. 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 Initialized on 04/22/22 08:57 - END OF NOTE 04/22/22 03:26 Nursing Note by Zayra Bartlett from [facility] called to get an update on the patient. She questioned if we needed placement for her. I explained that we were waiting on confirmation of whether they will accept the patient being flu positive. I explained that we do not have discharge orders yet but would like to be able to tell the physician during rounding whether she is able to go or not. She voiced understanding and stated she would try to find out. Initialized on 04/22/22 03:26 - END OF NOTE 04/22/22 03:12 Respiratory Note by Katerine Alicia Pt continues to refuse scheduled tx. changed to Duoneb Q4PRN. Initialized on 04/22/22 03:12 - END OF NOTE 04/22/22 01:25 Respiratory Note by Katerine Alicia Pt refuses scheduled neb tx and all assessments at this time. Initialized on 04/22/22 01:25 - END OF NOTE 04/22/22 00:57 Nursing Note by Kin Murguia Pt c/o of wheeler catheter hurting and wants it out now. Dcd wheeler with 1200 of clear yellow urine. Instructed to call nursing staff when you need to use the bathroom. Initialized on 04/22/22 00:57 - END OF NOTE 04/21/22 22:25 Nursing Note by Kin Murguia 04/21/22 2215 received call from Daniel at [facility] and has agreed to accept pt inpatient to their facility when medically discharged. Initialized on 04/21/22 22:25 - END OF NOTE 04/21/22 20:45 (created 04/22/22 02:07) Nursing Note by Zayra Bartlett Received a call from [facility] stating the recommendation for patient is inpatient treatment. They stated they did have beds available at this time and questioned if she was ready for discharge. Explained that the physician had not placed any discharge orders as of this time. Also informed them that pt was positive for Flu A. She stated she did not know what their policy was on accepting flu patients and someone would be getting back to us Initialized on 04/22/22 02:07 - END OF NOTE 04/21/22 18:04 Nursing Note by Naty Young. [facility] CALLED, IT WILL BE AROUND 1930 BEFORE THEY CAN DO CONSULT Initialized on 04/21/22 18:04 - END OF NOTE 04/21/22 17:56 (created 04/21/22 18:01) Nursing Note by Naty Young FAXED RECORDS TO [facility] Initialized on 04/21/22 18:01 - END OF NOTE 04/21/22 17:44 Nursing Note by Naty Young CALLED CONSULT TO [facility] (DANIEL) Initialized on 04/21/22 17:44 - END OF NOTE Code(s): J10.1 - FLU DUE TO OTH IDENT INFLUENZA VIRUS W OTH RESP MANIFEST (2) UTI (urinary tract infection) Current Visit: Yes Status: Acute Qualifiers: Urinary tract infection type: acute cystitis Hematuria presence: without hematuria Qualified Code(s): N30.00 - Acute cystitis without hematuria Code(s): N39.0 - URINARY TRACT INFECTION, SITE NOT SPECIFIED (3) Altered mental status Current Visit: Yes Status: Resolved Code(s): R41.82 - ALTERED MENTAL STATUS, UNSPECIFIED (4) Bipolar II disorder major depressive with atypical features Current Visit: Yes Status: Acute Assessment & Plan: awaiting transfer at psych facility Code(s): F31.81 - BIPOLAR II DISORDER
[2022-04-22 16:10] VITALS: BP 125/69; PULSE 64; O2SAT 94
== END 2022-04-22 17:50 | disposition left against medical advice (07) ==
LOC: ED 15:00 → MED SURG 18:21
PROVIDERS: ADMIT General Practice; ATTEND General Practice
DX: J10.1 Influenza due to other identified influenza virus with other respiratory manifestations (principal); N39.0 Urinary tract infection, site not specified; R41.82 Altered mental status, unspecified; F31.81 Bipolar II disorder; Z79.899 Other long term (current) drug therapy; Z20.828 Contact with and (suspected) exposure to other viral communicable diseases; Z72.0 Tobacco use
CPT/HCPCS: 0241U; 36000; 36415; 51702; 70450; 71045; 80053; 80307; 81015; 83605; 83735; 85025; 87040; 87086; 93005; 94640; 94760; 96360; 99285; 99291; G0378; G0480; 90791; J0696; J1885; J2405; Q3014; A9270-GY

== ENCOUNTER 2022-06-24 09:41 | Emergency (ER) | payer OTHER ==
--- NOTE | 2022-06-24 10:29 | ERPHSYRPT ---
- History of Present Illness Time Seen by Provider: 06/24/22 10:29 Source: patient Exam Limitations: no limitations Physician History: Patient is a 47-year-old female with a history of schizophrenia presents to our ED as a referral from [facility] for evaluation of unusual behavior. Patient was brought to our ED by her . Patient states she was evaluated at [facility] this morning. [facility] felt that her unusual behavior may be due to meth use. says symptoms started Friday. believes she has been using meth patient denies meth use. Per report patient took 4 Neurontin for Tylenol and Nucynta on Friday. Patient believes that this may have triggered her current symptoms. Patient is restless and somewhat uncooperative. She requires verbal and tactile stimuli for cooperation and attentiveness. Patient has dry crusting around her mouth. It is unclear what the crusting is from. Nurse notes documents blood however this does not appear to be blood. reports that patient has been walking into things since Friday. She has a bruise on her chin. Patient has a lesion in her lower lip mucosal surface. Patient denies homicidal suicidal ideations. Patient reports that she has been hearing voices. Patient has been seeing random things unclear of what exactly she has been seeing. Patient denies pain. No trauma. No fever. No neck pain no photophobia. No meningeal signs. Patient voices no other complaints or concerns at this time. Portions of this note were created with voice recognition technology. There may be grammatical, spelling, punctuation or sound alike errors Timing/Duration: today, intermittent, other Severity of Symptoms-Max: moderate (3 days) Severity of Symptoms-Current: mild Context related to: other Suicidal thoughts: other (No homicidal suicidal ideation.) Associated Symptoms: agitated, hallucinating, No suicidal ideation Previous symptoms: no prior history Allergies/Adverse Reactions: Sulfa (Sulfonamide Antibiotics) Allergy (Intermediate, Verified 02/15/22 22:15) Vomiting bee venom protein (honey bee) Allergy (Verified 02/15/22 22:15) methylprednisolone [From Solu-Medrol] Allergy (Verified 02/15/22 22:15) anger can take oral steroids, IV steroids she cannot take -- states she gets "roid rage" sumatriptan [From Imitrex] Allergy (Verified 02/15/22 22:15) nitrofurantoin [From Macrobid] Adverse Reaction (Verified 02/15/22 22:15) tramadol Adverse Reaction (Verified 02/15/22 22:15) Nausea flu vaccine Allergy (Intermediate, Uncoded 02/15/22 22:15) Hoarseness of voice Home Medications: Gabapentin 600 mg PO QID 06/14/19 [History] Acetaminophen [Tylenol Extra Strength] 2 tab PO Q6H PRN 11/14/20 [History] Escitalopram Oxalate [Lexapro] 1 ea DAILY 11/01/21 [History] Hx Tetanus, Diphtheria Vaccination/Date Given: Yes Hx Influenza Vaccination/Date Given: No Hx Pneumococcal Vaccination/Date Given: No Travel Risk - Vaccine Status Have you recieved a Covid-19 vaccination: No - Past Medical History Pertinent Past Medical History: Yes Neurological History: Migraines ENT History: No Pertinent History Cardiac History: No Pertinent History Respiratory History: No Pertinent History Endocrine Medical History: No Pertinent History Musculoskeletal History: Fibromyalgia GI Medical History: Gallbladder Disease, Other History: Other Psycho-Social History: Bipolar Female Reproductive Disorders: Other Other Medical History: kidney stones, born with 1 kidney - Past Surgical History Past Surgical History: Yes Neuro Surgical History: No Pertinent History Cardiac: No Pertinent History Respiratory: No Pertinent History Gastrointestinal: Bowel Surgery, Cholecystectomy Genitourinary: No Pertinent History Musculoskeletal: No Pertinent History Female Surgical History: Hysterectomy, Section, Tubal Ligation Other Surgical History: skin cancer removed twice, Umbilical hernia repair. ruptured hernia- colostomy and reversal - Social History Smoking Status: Never smoker How long have you smoked: 20yrs Exposure to second hand smoke: No Drug Use: methamphetamines, narcotics Patient Lives Alone: No (at penit[facility]iary) Significant Family History: no pertinent family hx - Review of Systems Constitutional: No Symptoms, No Fever, No Chills Eyes: No Symptoms Ears, Nose, & Throat: No Symptoms Respiratory: No Symptoms, No Cough, No Dyspnea Cardiac: No Symptoms, No Chest Pain, No Edema, No Syncope Abdominal/Gastrointestinal: No Symptoms, No Abdominal Pain, No Nausea, No Vomiting, No Diarrhea Genitourinary Symptoms: No Symptoms, No Dysuria Musculoskeletal: No Symptoms, No Back Pain, No Neck Pain Skin: No Symptoms, No Rash Neurological: No Symptoms, No Dizziness, No Focal Weakness, No Sensory Changes Psychological: No Symptoms Endocrine: No Symptoms Hematologic/Lymphatic: No Symptoms Immunological/Allergic: No Symptoms All Other Systems: Reviewed and Negative - Nursing Vital Signs Nursing Vital Signs: Initial Vital Signs Temperature 97.0 F 06/24/22 09:41 Pulse Rate 120 H 06/24/22 09:41 Respiratory Rate 18 06/24/22 09:41 O2 Sat by Pulse Oximetry 95 06/24/22 09:41 Pain Scale Pain Intensity 0 - Physical Exam General Appearance: no apparent distress Eyes, Ears, Nose, Throat Exam: normal ENT inspection, TMs normal, pharynx normal, moist mucous membranes, other (Patient has some crusting around her mouth however RN was able to wipe the crust away. It does not appear to be blood. Unclear what the crusting is.) Neck Exam: normal inspection, non-tender, supple, full range of motion Respiratory Exam: normal breath sounds, lungs clear, airway intact, No chest tenderness, No respiratory distress Cardiovascular Exam: regular rate/rhythm, normal heart sounds, normal peripheral pulses, No edema Gastrointestinal/Abdominal Exam: soft, normal bowel sounds, No tenderness, No distention, No guarding Extremities Exam: normal inspection, normal range of motion, No evidence of injury, No edema Peripheral Pulses: dorsalis-pedis (R): 2+, dorsalis-pedis (L): 2+ Current Suicidality: denies suicide plan Neurological Exam: alert, blender/braze applicator II-XII nml as tested, oriented x 3 Appearance: appropriate appearance, appropriate insight Behavior/Eye Contact/Speech: alert & uncooperative (Patient appears to be restless) Skin Exam: normal color, warm, dry, No rash SpO2 Interpretation: normal SpO2: 95 O2 Delivery: Room Air - Course Nursing assessment & vital signs reviewed: Yes EKG Interpreted by Me: RATE (84), Sinus Rhythm, Left Follett Deviation, NORMAL INTERVALS Ordered Tests: Active Orders 24 hr Category Date Time Status Rubber Molder STAT Care 06/24/22 10:31 Active EKG-ER Only STAT Care 06/24/22 10:29 Active IV Insertion STAT Care 06/24/22 10:29 Active ACETAMINOPHEN Stat Lab 06/24/22 11:23 Completed CBC W DIFF Stat Lab 06/24/22 11:23 Completed CK (IN-HOUSE) [CK-Creatinine Phosphokinase] Stat Lab 06/24/22 Completed CMP Stat Lab 06/24/22 11:23 Completed ETHYL ALCOHOL Stat Lab 06/24/22 11:23 Completed HCG,QUALITATIVE URINE Stat Lab 06/24/22 13:10 Completed Lactic Acid Stat Lab 06/24/22 12:08 Completed SALICYLATE Stat Lab 06/24/22 11:23 Completed UA W/RFX UR CULTURE Stat Lab 06/24/22 13:10 Completed Urine Triage Profile Stat Lab 06/24/22 13:10 Completed Medication Summary Generic Name Dose Route Start Last Admin Trade Name Freq PRN Reason Stop Dose Admin Sodium Chloride 1,000 mls @ 100 mls/hr 06/24/22 10:30 06/24/22 17:25 Sodium Chloride 0.9% 1000 Ml IV 07/24/22 10:29 Not Given .Q10H OMAR Lab/Rad Data: Laboratory Result Diagrams 06/24/22 11:23 06/24/22 11:23 Laboratory Results 06/24/22 06/24/22 06/24/22 Range/Units Unknown 13:10 13:10 WBC (4.0-10.5) x10^3/uL RBC (4.1-5.4) x10^6/uL Hgb (12.0-16.0) g/dL Hct (35-47) % MCV (78-100) fL MCH (26-32) pg MCHC (32-36) g/dL RDW (11.5-14.0) % Plt Count (150-450) x10^3/uL MPV (7.5-11.0) fL Gran % (36.0-66.0) % Immature Gran % (Auto) (0.00-0.4) % Nucleat RBC Rel Count (0.00-0.1) % Eos # (Auto) (0-0.5) x10^3/uL Immature Gran # (Auto) (0.00-0.03) x10^3u/L Absolute Lymphs (auto) (1.0-4.6) x10^3/uL Absolute Monos (auto) (0.0-1.3) x10^3/uL Absolute Nucleated RBC (0.00-0.01) x10^3u/L Lymphocytes % (24.0-44.0) % Monocytes % (0.0-12.0) % Eosinophils % (0.00-5.0) % Basophils % (0.0-0.4) % Absolute Granulocytes (1.4-6.9) x10^3/uL Basophils # (0-0.4) x10^3/uL Sodium (137-145) mmol/L Potassium (3.5-5.1) mmol/L Chloride (98-107) mmol/L Carbon Dioxide (22-30) mmol/L Anion Gap (5-15) MEQ/L BUN (7-17) mg/dL Creatinine (0.52-1.04) mg/dL Estimated GFR ML/MIN Glucose (74-106) mg/dL Lactic Acid (0.4-2.0) Calcium (8.4-10.2) mg/dL Total Bilirubin (0.2-1.3) mg/dL AST (14-36) U/L ALT (0-35) U/L Alkaline Phosphatase (38-126) U/L Creatine Kinase 921 H (30-135) U/L Serum Total Protein (6.3-8.2) g/dL Albumin (3.5-5.0) g/dL Urine Color (Yellow) Urine Appearance (Clear) Urine pH (4.6-8.0) Ur Specific Ventress (1.005-1.030) Urine Protein (Negative) Urine Glucose (UA) (Negative) mg/dL Urine Ketones (Negative) Urine Blood (Negative) Urine Nitrite (Negative) Urine Bilirubin (Negative) Urine Urobilinogen (0.2) mg/dL Ur Leukocyte Esterase (Negative) U Hyaline Cast (Auto) (0-2) /LPF Urine Microscopic RBC (0-5) /HPF Urine Microscopic WBC (0-5) /HPF Ur Epithelial Cells (None Seen) /HPF Urine Bacteria (None Seen) /HPF Urine Culture Reflexed (NO) Urine HCG, Qual NEGATIVE (Negative) Salicylates (2-20) mg/dL Urine Opiates Level POSITIVE (NEGATIVE) Ur Methadone NEGATIVE (NEGATIVE) Acetaminophen (10-30) ug/ml Urine Barbiturates NEGATIVE (NEGATIVE) Ur Phencyclidine (PCP) NEGATIVE (NEGATIVE) Urine Amphetamine POSITIVE (NEGATIVE) U Benzodiazepine Level NEGATIVE (NEGATIVE) Urine Cocaine NEGATIVE (NEGATIVE) Urine Marijuana (THC) NEGATIVE (NEGATIVE) Ethyl Alcohol (0-10) mg/dL Influenza Type A Ag (NEGATIVE) Influenza Type B Ag (NEGATIVE) RSV (PCR) (Negative) SARS-CoV-2 (PCR) (NEGATIVE) 06/24/22 06/24/22 06/24/22 Range/Units 13:10 12:08 11:23 WBC (4.0-10.5) x10^3/uL RBC (4.1-5.4) x10^6/uL Hgb (12.0-16.0) g/dL Hct (35-47) % MCV (78-100) fL MCH (26-32) pg MCHC (32-36) g/dL RDW (11.5-14.0) % Plt Count (150-450) x10^3/uL MPV (7.5-11.0) fL Gran % (36.0-66.0) % Immature Gran % (Auto) (0.00-0.4) % Nucleat RBC Rel Count (0.00-0.1) % Eos # (Auto) (0-0.5) x10^3/uL Immature Gran # (Auto) (0.00-0.03) x10^3u/L Absolute Lymphs (auto) (1.0-4.6) x10^3/uL Absolute Monos (auto) (0.0-1.3) x10^3/uL Absolute Nucleated RBC (0.00-0.01) x10^3u/L Lymphocytes % (24.0-44.0) % Monocytes % (0.0-12.0) % Eosinophils % (0.00-5.0) % Basophils % (0.0-0.4) % Absolute Granulocytes (1.4-6.9) x10^3/uL Basophils # (0-0.4) x10^3/uL Sodium (137-145) mmol/L Potassium (3.5-5.1) mmol/L Chloride (98-107) mmol/L Carbon Dioxide (22-30) mmol/L Anion Gap (5-15) MEQ/L BUN (7-17) mg/dL Creatinine (0.52-1.04) mg/dL Estimated GFR ML/MIN Glucose (74-106) mg/dL Lactic Acid 0.7 (0.4-2.0) Calcium (8.4-10.2) mg/dL Total Bilirubin (0.2-1.3) mg/dL AST (14-36) U/L ALT (0-35) U/L Alkaline Phosphatase (38-126) U/L Creatine Kinase (30-135) U/L Serum Total Protein (6.3-8.2) g/dL Albumin (3.5-5.0) g/dL Urine Color Dark Yellow A (Yellow) Urine Appearance Cloudy A (Clear) Urine pH 5.5 (4.6-8.0) Ur Specific Ventress >=1.030 A (1.005-1.030) Urine Protein 30 (Negative) Urine Glucose (UA) Negative (Negative) mg/dL Urine Ketones Trace A (Negative) Urine Blood Trace (Negative) Urine Nitrite Negative (Negative) Urine Bilirubin Negative (Negative) Urine Urobilinogen 1.0 A (0.2) mg/dL Ur Leukocyte Esterase Small A (Negative) U Hyaline Cast (Auto) 11-25 A (0-2) /LPF Urine Microscopic RBC 0-2 (0-5) /HPF Urine Microscopic WBC 0-2 (0-5) /HPF Ur Epithelial Cells None Seen (None Seen) /HPF Urine Bacteria None Seen (None Seen) /HPF Urine Culture Reflexed NO (NO) Urine HCG, Qual (Negative) Salicylates (2-20) mg/dL Urine Opiates Level (NEGATIVE) Ur Methadone (NEGATIVE) Acetaminophen (10-30) ug/ml Urine Barbiturates (NEGATIVE) Ur Phencyclidine (PCP) (NEGATIVE) Urine Amphetamine (NEGATIVE) U Benzodiazepine Level (NEGATIVE) Urine Cocaine (NEGATIVE) Urine Marijuana (THC) (NEGATIVE) Ethyl Alcohol (0-10) mg/dL Influenza Type A Ag NEGATIVE (NEGATIVE) Influenza Type B Ag NEGATIVE (NEGATIVE) RSV (PCR) NEGATIVE (Negative) SARS-CoV-2 (PCR) NEGATIVE (NEGATIVE) 06/24/22 06/24/22 Range/Units 11:23 11:23 WBC 11.3 H (4.0-10.5) x10^3/uL RBC 3.74 L (4.1-5.4) x10^6/uL Hgb 11.8 L (12.0-16.0) g/dL Hct 35.6 (35-47) % MCV 95.2 (78-100) fL MCH 31.6 (26-32) pg MCHC 33.1 (32-36) g/dL RDW 14.0 (11.5-14.0) % Plt Count 359 (150-450) x10^3/uL MPV 9.2 (7.5-11.0) fL Gran % 66.7 H (36.0-66.0) % Immature Gran % (Auto) 0.3 (0.00-0.4) % Nucleat RBC Rel Count 0.0 (0.00-0.1) % Eos # (Auto) 0.74 H (0-0.5) x10^3/uL Immature Gran # (Auto) 0.03 (0.00-0.03) x10^3u/L Absolute Lymphs (auto) 2.18 (1.0-4.6) x10^3/uL Absolute Monos (auto) 0.77 (0.0-1.3) x10^3/uL Absolute Nucleated RBC 0.00 (0.00-0.01) x10^3u/L Lymphocytes % 19.4 L (24.0-44.0) % Monocytes % 6.8 (0.0-12.0) % Eosinophils % 6.6 H (0.00-5.0) % Basophils % 0.2 (0.0-0.4) % Absolute Granulocytes 7.52 H (1.4-6.9) x10^3/uL Basophils # 0.02 (0-0.4) x10^3/uL Sodium 138 (137-145) mmol/L Potassium 3.3 L (3.5-5.1) mmol/L Chloride 112 H (98-107) mmol/L Carbon Dioxide 19 L (22-30) mmol/L Anion Gap 10.3 (5-15) MEQ/L BUN 23 H (7-17) mg/dL Creatinine 1.07 H (0.52-1.04) mg/dL Estimated GFR 58.9 ML/MIN Glucose 112 H (74-106) mg/dL Lactic Acid (0.4-2.0) Calcium 8.2 L (8.4-10.2) mg/dL Total Bilirubin 0.40 (0.2-1.3) mg/dL AST 47 H (14-36) U/L ALT 30 (0-35) U/L Alkaline Phosphatase 115 (38-126) U/L Creatine Kinase (30-135) U/L Serum Total Protein 7.2 (6.3-8.2) g/dL Albumin 4.0 (3.5-5.0) g/dL Urine Color (Yellow) Urine Appearance (Clear) Urine pH (4.6-8.0) Ur Specific Ventress (1.005-1.030) Urine Protein (Negative) Urine Glucose (UA) (Negative) mg/dL Urine Ketones (Negative) Urine Blood (Negative) Urine Nitrite (Negative) Urine Bilirubin (Negative) Urine Urobilinogen (0.2) mg/dL Ur Leukocyte Esterase (Negative) U Hyaline Cast (Auto) (0-2) /LPF Urine Microscopic RBC (0-5) /HPF Urine Microscopic WBC (0-5) /HPF Ur Epithelial Cells (None Seen) /HPF Urine Bacteria (None Seen) /HPF Urine Culture Reflexed (NO) Urine HCG, Qual (Negative) Salicylates < 1.0 L (2-20) mg/dL Urine Opiates Level (NEGATIVE) Ur Methadone (NEGATIVE) Acetaminophen < 10 L (10-30) ug/ml Urine Barbiturates (NEGATIVE) Ur Phencyclidine (PCP) (NEGATIVE) Urine Amphetamine (NEGATIVE) U Benzodiazepine Level (NEGATIVE) Urine Cocaine (NEGATIVE) Urine Marijuana (THC) (NEGATIVE) Ethyl Alcohol < 10 (0-10) mg/dL Influenza Type A Ag (NEGATIVE) Influenza Type B Ag (NEGATIVE) RSV (PCR) (Negative) SARS-CoV-2 (PCR) (NEGATIVE) - Progress Progress: improved Progress Note: 06/24/22 18:42 Patient is a 47-year-old female presents emergency department for evaluation of hallucination. Patient's complaint was acute. Complexity of complaint is moderate. Patient has a history of schizophrenia which may be contributing to patient's current symptomology. Work-up reveals opiate and amphetamine use. We contacted poison control. They advised obtaining a CK and lactic acid. Lactic acid normal. CK elevated at 921. Bicarb was 19. Patient refused IV fluids to address the elevated CK and elevated bicarb level.. Laboratory testing ordered. Acetaminophen level, CBC CMP creatine kinase, COVID, EtOH level, , lactic acid, salicylate, urinalysis and urine triage. Reveals a hypokalemia. Patient received oral potassium. Laboratory work-up findings were implemented in medical decision making. We consulted [facility] Swift. We spoke to Aidan who accepts transfer. Patient's /power of attorney general will drive patient directly there. Level of EM service provided was moderate. Complexity of problem is moderate. Complexity of data reviewed and analyzed is moderate. Risk of complication and/or morbidity mortality of patient management was low. No critical care time. Patient did not serve an independent historian. Patient's significant other/power of attorney general contributed to the HPI. No route sales associate required. Time spent for discharge was approximately 15 minutes. Include the level of EM service provided min/straightforward, low, moderate, high, critical care Patient is of sound mind. Patient is appropriate to make informed and independent medical decisions. Patient's power of attorney general at bedside. He is her . He agreed to support her decisions. They understand that leaving AGAINST MEDICAL ADVICE can result in delayed diagnosis, increased risk of morbidity, mortality, short and long-term disability including . In spite of these risks, patient has decided to leave AGAINST MEDICAL ADVICE. They un derstand that she may return to our ED at any point if he or she reconsiders. Patient agrees to follow-up with his or her primary care doctor within 48 hours for reevaluation. Patient voices no other complaints or concerns at this time. We will release patient AGAINST MEDICAL ADVICE per their request. 06/24/22 18:46 Cosigner was in the room and aware and agreed with patient's finding of the AMA paperwork. Portions of this note were created with voice recognition technology. There may be grammatical, spelling, punctuation or sound alike errors 06/24/22 18:49 06/24/22 18:53 Counseled pt/family regarding: lab results, diagnosis, need for follow-up - Departure Departure Disposition: AMA Clinical Impression: Opiate use, Amphetamine use, Hypokalemia, Hallucination, Elevated CK Condition: Stable Critical Care Time: No Referrals: GASTON CAMPUZANO [Primary Care Provider] - Follow up/PCP as directed Additional Instructions: Discharge/Care Plan NATHAN MENDOZA was seen on 06/24/22 in the Emergency Room. The patient was counseled regarding Diagnosis,Lab results, Imaging studies, need for follow up and when to return to the Emergency Room. Prescriptions given: Discharge Note I have spoken with the patient and/or caregivers. I have explained the patient's condition, diagnosis and treatment plan based on the information available to me at this time. I have answered the patient's and/or caregiver's questions and addressed any concerns. The patient and/or caregivers have as good understanding of the patient's diagnosis, condition and treatment plan as can be expected at this point. The vital signs have been stable. The patient's condition is stable and appropriate for discharge from the emergency department. The patient will pursue further outpatient evaluation with the primary care physician or other designated or consulting physician as outlined in the discharge instructions. The patient and/or caregivers are agreeable to this plan of care and follow-up instructions have been explained in detail. The patient and/or caregivers have received these instruction. The patient/and or caregivers are aware that any significant change in condition or worsening of symptoms should prompt an immediate return to this or the closest emergency department or call 911.
[2022-06-24] MEDS ORDERED: Sodium Chloride 0.9% 1000 ML 1,000 ML IV SCH (10:30)
[2022-06-24 11:32] LABS: Absolute Neutrophil Ct (ANC) 7.52 x10^3/uL (1.4-6.9); BASOPHIL % 0.2 % (0.0-0.4); Basophil (Absolute #) 0.02 x10^3/uL (0-0.4); Eosinophil % 6.6 % (0.00-5.0); Eosinophil (Absolute #) 0.74 x10^3/uL (0-0.5); Hematocrit 35.6 % (35-47); Hemoglobin 11.8 g/dL (12.0-16.0); IMMATURE GRAN # 0.03 x10^3u/L (0.00-0.03); IMMATURE GRAN % 0.3 % (0.00-0.4); Lymphocyte (Absolute #) 2.18 x10^3/uL (1.0-4.6); Lymphocytes % 19.4 % (24.0-44.0); Mean Cell Volume 95.2 fL (78-100); Mean Corpuscular Hemoglobin 31.6 pg (26-32); Mean Corpuscular Hgb Concent. 33.1 g/dL (32-36); Mean Platelet Volume 9.2 fL (7.5-11.0); Monocyte (Absolute #) 0.77 x10^3/uL (0.0-1.3); Monocytes % 6.8 % (0.0-12.0); Neutrophil % 66.7 % (36.0-66.0); Platelet Count 359 x10^3/uL (150-450); Red Blood Count 3.74 x10^6/uL (4.1-5.4); White Blood Count 11.3 x10^3/uL (4.0-10.5)
[2022-06-24 12:02] LABS: INFLUENZA A NEGATIVE (NEGATIVE); INFLUENZA B NEGATIVE (NEGATIVE); RESPIRATORY SYNCTIAL VIRUS NEGATIVE (Negative); SARS-CoV-2 Xpert Express NEGATIVE (NEGATIVE)
[2022-06-24 12:42] LABS: BLOOD UREA NITROGEN 23 mg/dL (7-17); CHLORIDE 112 mmol/L (98-107); Calcium 8.2 mg/dL (8.4-10.2); Carbon Dioxide 19 mmol/L (22-30); Creatinine 1 1.07 mg/dL (0.52-1.04); EST GLOMERULAR FILTRATION RATE 58.9 ML/MIN; Glucose 112 mg/dL (74-106); Potassium 3.3 mmol/L (3.5-5.1); SODIUM 138 mmol/L (137-145); Total Protein 7.2 g/dL (6.3-8.2)
[2022-06-24 12:43] LABS: ACETAMINOPHEN < 10 ug/ml (10-30); ALKALINE PHOSPHATASE 115 U/L (38-126); ETHYL ALCOHOL < 10 mg/dL (0-10); SALICYLATE < 1.0 mg/dL (2-20); SGOT/AST 47 U/L (14-36); SGPT/ALT 30 U/L (0-35)
[2022-06-24 13:35] LABS: Appearance Cloudy (Clear); Bacteria None Seen /HPF (None Seen); Bilirubin Negative (Negative); Blood Trace (Negative); Epithelial Cells None Seen /HPF (None Seen); Glucose, Urine Negative (Negative); Ketones Trace (Negative); Leukocyte Esterase Small (Negative); Nitrite Negative (Negative); Ph 5.5 (4.6-8.0); Protein,Urine Dip 30 (Negative); RBC 0-2 /HPF (0-5); Specific Gravity >=1.030 (1.005-1.030); WBC 0-2 /HPF (0-5)
[2022-06-24 13:37] LABS: ADD URINE CULTURE? NO (NO)
[2022-06-24 14:04] LABS: ANION GAP 10.3 MEQ/L (5-15)
[2022-06-24 14:17] VITALS: O2SAT 95
[2022-06-24 14:38] LABS: Barbiturate,Urine NEGATIVE (NEGATIVE); Benzodiazepine,Urine NEGATIVE (NEGATIVE); Cocaine,Urine NEGATIVE (NEGATIVE); Methadone,Urine NEGATIVE (NEGATIVE); Opiate,Urine POSITIVE (NEGATIVE); PCP,Urine NEGATIVE (NEGATIVE); THC,Urine NEGATIVE (NEGATIVE)
[2022-06-24 15:05] LABS: Amphetamine,Urine POSITIVE (NEGATIVE)
[2022-06-24] MEDS ORDERED: Klor Con PO ONE ×2 (18:31→18:43)
[2022-06-24 18:41] VITALS: BP 124/72; PULSE 90
== END 2022-06-24 19:00 | disposition left against medical advice (07) ==
LOC: ED 09:41
DX: R44.1 Visual hallucinations (principal); R44.0 Auditory hallucinations; E87.6 Hypokalemia; R79.89 Other specified abnormal findings of blood chemistry; F15.90 Other stimulant use, unspecified, uncomplicated; F11.90 Opioid use, unspecified, uncomplicated; Z79.899 Other long term (current) drug therapy; Z28.310 Unvaccinated for COVID-19
CPT/HCPCS: 0241U; 36415; 80053; 80307; 81001; 81025; 82550; 83605; 85025; 93005; 93041; 99284; G0480; A9270-GY

== ENCOUNTER 2022-07-04 15:57 | Emergency (ER) | payer OTHER ==
[2022-07-04 16:34] LABS: Appearance Turbid (Clear); Bacteria Moderate /HPF (None Seen); Bilirubin Negative (Negative); Blood Large (Negative); Epithelial Cells Moderate /HPF (None Seen); Glucose, Urine Negative (Negative); Hyaline Casts NONE SEEN /LPF (0-2); Ketones Negative (Negative); Leukocyte Esterase Large (Negative); Nitrite Negative (Negative); Protein,Urine Dip 30 (Negative); RBC >100 /HPF (0-5); Specific Gravity 1.025 (1.005-1.030); WBC 21-50 /HPF (0-5)
--- NOTE | 2022-07-04 16:36 | ERPHSYRPT ---
- History of Present Illness Time Seen by Provider: 07/04/22 16:25 Source: patient, family Exam Limitations: no limitations Patient Subjective Stated Complaint: Urinary pain for about a week but has been much worse for the past 3 days. States now has blood in her urine. She was a Dr. Eagle's office and states she was told to go to the ER. Triage Nursing Assessment: Patient ambulated back to ER. She is alert and oriented; tearful. No SOB. Skin tone normal. Urine sample obtained; hematuria. Physician History: This is a 47-year-old white female patient of Dr. Zuluaga who was sent to the emergency department today because she has had dysuria for a week and symptoms have worsened in the last 3 to 4 days. Patient was sent to Dr. Eagle's office because she had symptoms of questionable stool with urination. 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 Patient had a tubal ligation in the past followed by later having a hysterectomy. Patient has a history of migraine headaches and fibromyalgia. Patient has had a colostomy takedown in the past and there is concerned she may have a colovesical fistula. Patient is being scheduled for endoscopies. Timing/Duration: day(s) (4), worse Activites at Onset: none Quality: burning (With urination) Onset Location: suprapubic (Tenderness) Severity of Pain-Max: mild (To moderate) Severity of Pain-Current: mild (To moderate) Prior abdominal problems: other (See HPI) Sexual intercourse history: non-contributory Modifying Factors: Improves With: nothing Associated Symptoms: abdominal pain (Prepubic), dysuria, other (Hematuria), No fever, No chills Allergies/Adverse Reactions: Sulfa (Sulfonamide Antibiotics) Allergy (Intermediate, Verified 07/04/22 16:15) Vomiting bee venom protein (honey bee) Allergy (Verified 07/04/22 16:15) methylprednisolone [From Solu-Medrol] Allergy (Verified 07/04/22 16:15) anger can take oral steroids, IV steroids she cannot take -- states she gets "roid rage" sumatriptan [From Imitrex] Allergy (Verified 07/04/22 16:15) nitrofurantoin [From Macrobid] Adverse Reaction (Verified 07/04/22 16:15) tramadol Adverse Reaction (Verified 07/04/22 16:15) Nausea flu vaccine Allergy (Intermediate, Uncoded 07/04/22 16:15) Hoarseness of voice Home Medications: Gabapentin 600 mg PO QID 06/14/19 [History] Acetaminophen [Tylenol Extra Strength] 2 tab PO Q6H PRN 11/14/20 [History] Escitalopram Oxalate [Lexapro] 1 ea DAILY 11/01/21 [History] Hx Tetanus, Diphtheria Vaccination/Date Given: Yes Hx Influenza Vaccination/Date Given: No Hx Pneumococcal Vaccination/Date Given: No Travel Risk - International Travel Have you traveled outside of the country in past 3 weeks: No - Coronavirus Screening Are you exhibiting any of the following symptoms?: No Close contact with a COVID-19 positive Pt in past 14-21 Days: No - Vaccine Status Have you recieved a Covid-19 vaccination: No - Review of Systems Constitutional: No Symptoms Eyes: No Symptoms Ears, Nose, & Throat: No Symptoms Respiratory: No Symptoms Cardiac: No Symptoms Abdominal/Gastrointestinal: Abdominal Pain (Suprapubic) Genitourinary Symptoms: Dysuria, Hematuria Musculoskeletal: No Symptoms Skin: No Symptoms Neurological: No Symptoms Psychological: No Symptoms Endocrine: No Symptoms Hematologic/Lymphatic: No Symptoms Immunological/Allergic: No Symptoms All Other Systems: Reviewed and Negative - Past Medical History Pertinent Past Medical History: Yes Neurological History: Migraines ENT History: No Pertinent History Cardiac History: No Pertinent History Respiratory History: No Pertinent History Endocrine Medical History: No Pertinent History Musculoskeletal History: Fibromyalgia GI Medical History: Gallbladder Disease, Other History: Other Psycho-Social History: Bipolar Female Reproductive Disorders: Other Other Medical History: kidney stones, born with 1 kidney (left only) - Past Surgical History Past Surgical History: Yes Neuro Surgical History: No Pertinent History Cardiac: No Pertinent History Respiratory: No Pertinent History Gastrointestinal: Bowel Surgery, Cholecystectomy Genitourinary: No Pertinent History Musculoskeletal: No Pertinent History Female Surgical History: Hysterectomy, Section, Tubal Ligation Other Surgical History: skin cancer removed twice, Umbilical hernia repair. ruptured hernia- colostomy and reversal - Social History Smoking Status: Never smoker How long have you smoked: 20yrs Exposure to second hand smoke: No Drug Use: none Patient Lives Alone: No Significant Family History: no pertinent family hx - Female History Hx Now: No - Nursing Vital Signs Nursing Vital Signs: Initial Vital Signs Temperature 98 F 07/04/22 16:08 Pulse Rate 105 H 07/04/22 16:08 Respiratory Rate 18 07/04/22 16:08 Blood Pressure 137/107 07/04/22 16:08 O2 Sat by Pulse Oximetry 98 07/04/22 16:08 Pain Scale Pain Intensity 10 - Physical Exam General Appearance: no apparent distress, alert, anxiety Eye Exam: PERRL/EOMI, eyes nml inspection Ears, Nose, Throat Exam: normal ENT inspection, moist mucous membranes Neck Exam: normal inspection, non-tender, supple, full range of motion Respiratory Exam: normal breath sounds, lungs clear, airway intact, No chest tenderness, No respiratory distress Cardiovascular Exam: regular rate/rhythm, normal heart sounds, normal peripheral pulses Gastrointestinal/Abdomen Exam: soft, normal bowel sounds, No tenderness Rectal Exam: not done Back Exam: normal inspection, normal range of motion, No CVA tenderness, No vertebral tenderness Extremity Exam: normal inspection, normal range of motion, pelvis stable Neurologic Exam: alert, oriented x 3, cooperative, 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, normal mood/affect, nml cerebellar function, nml station & gait, sensation nml Skin Exam: normal color, warm, dry Lymphatic Exam: No adenopathy SpO2 Interpretation: normal SpO2: 98 O2 Delivery: Room Air - Course Nursing assessment & vital signs reviewed: Yes Ordered Tests: Active Orders 24 hr Category Date Time Status ABDOMEN AND PELVIS W/0 CONTRAS [CT] Stat Exams 07/04/22 17:01 Completed CULTURE,URINE Stat Lab 07/04/22 16:08 Received UA W/RFX UR CULTURE Stat Lab 07/04/22 16:08 Completed Medication Summary Generic Name Dose Route Start Last Admin Trade Name Freq PRN Reason Stop Dose Admin Ceftriaxone Sodium 1,000 mg 07/04/22 18:46 Ceftriaxone Sodium 1000 Mg Inj Vial IM 07/04/22 18:47 STAT ONE Discontinued Medications Generic Name Dose Route Start Last Admin Trade Name Freq PRN Reason Stop Dose Admin Hydromorphone HCl 1 mg 07/04/22 17:03 07/04/22 17:08 Hydromorphone 1 Mg/1ml Inj 1 Mg/Ml Syringe IM 07/04/22 17:04 1 mg STAT ONE Administration Hydromorphone HCl Confirm 07/04/22 17:07 Hydromorphone 1 Mg/1ml Inj 1 Mg/Ml Syringe Administered 07/04/22 17:08 Dose 1 mg .ROUTE .STK-MED ONE Ondansetron HCl 4 mg 07/04/22 17:04 07/04/22 17:08 Zofran 4 Mg/Udtablet Orally Disintegrating PO 07/04/22 17:05 4 mg STAT ONE Administration Ondansetron HCl Confirm 07/04/22 17:07 Zofran 4 Mg/Udtablet Orally Disintegrating Administered 07/04/22 17:08 Dose 4 mg .ROUTE .STK-MED ONE Lab/Rad Data: Laboratory Results 07/04/22 Range/Units 16:08 Urine Color [place] A (Yellow) Urine Appearance Turbid A (Clear) Urine pH 6.0 (4.6-8.0) Ur Specific [place] Part 1.025 (1.005-1.030) Urine Protein 30 (Negative) Urine Glucose (UA) Negative (Negative) mg/dL Urine Ketones Negative (Negative) Urine Blood Large A (Negative) Urine Nitrite Negative (Negative) Urine Bilirubin Negative (Negative) Urine Urobilinogen 1.0 A (0.2) mg/dL Ur Leukocyte Esterase Large A (Negative) U Hyaline Cast (Auto) NONE SEEN (0-2) /LPF Urine Microscopic RBC >100 A (0-5) /HPF Urine Microscopic WBC 21-50 A (0-5) /HPF Ur Epithelial Cells Moderate A (None Seen) /HPF Urine Bacteria Moderate A (None Seen) /HPF Urine Culture Reflexed YES (NO) - Progress Progress: improved, re-examined Air Movement: good Progress Note: 07/04/22 18:47 CT scan of the abdomen pelvis without contrast shows moderately diffuse fecal stasis. There is a congenitally absent right kidney. There is no acute intra- abdominal or intrapelvic abnormalities. Blood Culture(s) Obtained: No Antibiotics given: Yes Counseled pt/family regarding: lab results, diagnosis, need for follow-up Medical Desision Making - Independent Historian Additional History obtained from: Spouse - Discussion of managment Reviewed:: Test results Agreed on:: Treatment plan (Discussed with patient and spouse), need for follow- up (Discussed with patient and spouse discussed with patient and spouse) - Diagnostic Testing Diagnostic Testing: Diagnostic tests were ordered,analyzed, and reviewed by me and used in my medical decision making for this patient. Radiologic studies (if ordered) were read by me initially then discussed with the radiologist . - Risk of complications Low Risk: Low risk of morbidity from additional dx testing or treatment - Departure Departure Disposition: Home Clinical Impression: UTI (urinary tract infection) Condition: Stable Critical Care Time: No Referrals: GASTON ZULUAGA [Primary Care Provider] - Follow up/PCP as directed Additional Instructions: Drink plenty of fluids. Take your antibiotics as prescribed. Follow-up with your primary care provider for further evaluation and management including management of your pain. Use Tylenol for pain and fever control Prescriptions: Levofloxacin [Levaquin 500 MG Tablet] 500 mg PO DAILY #7 tablet
[2022-07-04 16:58] LABS: ADD URINE CULTURE? YES (NO)
[2022-07-04] MEDS ORDERED: Hydromorphone 1 mg/ml Injection IM ONE (17:03)
[2022-07-04] MEDS ORDERED: ZOFRAN ODT 4 MG PO ONE (17:04)
[2022-07-04] MEDS ORDERED: ZOFRAN ODT 4 MG ONE (17:07)
[2022-07-04] MEDS ORDERED: Hydromorphone 1 mg/ml Injection ONE (17:07)
[2022-07-04 17:49] VITALS: BP 146/93; PULSE 88
--- NOTE | 2022-07-04 18:18 | XRAY ---
Indication: Dysuria. Stool with urination. Colovesical fistula. Multiple contiguous axial images obtained through the abdomen and pelvis without contrast. Comparison: June 11, 2022 Lung bases remain clear again with incidental tiny left lower lobe and paraesophageal calcified granulomas. Heart not enlarged. Noncontrasted stomach and bowel loops nonobstructed. Worsening moderate diffuse scattered colonic fecal debris throughout. No direct/indirect findings for colovesical fistula on this noncontrast exam. Stable calcified splenic granulomas, congenitally absent right kidney, nonobstructing left renal punctate calculus, IVC duplication, intact sigmoid anastomosis, cholecystectomy, and hysterectomy. No free fluid/air. Remaining liver, pancreas, spleen, adrenal glands, left kidney, left ureter, and bladder are unremarkable for noncontrast exam. Again minimal aortoiliac calcifications without AAA. Osseous structures intact again with mild lumbosacral junction degenerative changes. Impression: No change compared to CT 3 weeks ago. Again moderate diffuse fecal stasis, nonobstructing left renal micro-calculus, congenitally absent right kidney, IVC duplication, arteriosclerotic disease, and old granulomatous disease. No new/acute findings.
[2022-07-04 18:42] VITALS: O2SAT 98
[2022-07-04] MEDS ORDERED: Rocephin 1000 MG INJ IM ONE (18:46)
[2022-07-04] MEDS ORDERED: XYLOCAINE 1% HCL 20 ML MDV ONE (18:52)
[2022-07-04] MEDS ORDERED: Rocephin 1000 MG INJ ONE (18:52)
== END 2022-07-04 19:05 | disposition home or self-care (01) ==
LOC: ED 15:57
DX: N39.0 Urinary tract infection, site not specified (principal); R30.0 Dysuria; R10.2 Pelvic and perineal pain; Q60.0 Renal agenesis, unilateral; Z79.899 Other long term (current) drug therapy; Z28.310 Unvaccinated for COVID-19
CPT/HCPCS: 74176; 81001; 87077; 87086; 87186; 96372; 99284; J0696; J1170; Q0162

== ENCOUNTER 2022-08-02 21:09 | Emergency (ER) | payer OTHER ==
--- NOTE | 2022-08-02 21:23 | ERPHSYRPT ---
- History of Present Illness Time Seen by Provider: 08/02/22 21:23 Source: patient, police Exam Limitations: clinical condition Physician History: Patient brought in by police due to be a danger to herself. Her called authorities on the patient w/ concerns that she may harm herself. She has a hx of Bipolar d/o w/ manic episodes requiring frequent inpatient hospitalization. On evaluation she is tearful, but denies SI/HI. She does feel like she has been manic recently and feels ashamed for her behaviors. Patient also reporting CP, cough, congestion, dysuria, hematuria and left flank pain for the past 2 days. Timing/Duration: day(s) (2) Severity of Symptoms-Max: moderate Severity of Symptoms-Current: moderate Context related to: spouse Suicidal thoughts: other (denies) Associated Symptoms: agitated, anxiety, depressed, impaired concentration, No hostile, No hallucinating, No ingestion, No suicidal ideation Previous symptoms: same symptoms as today Allergies/Adverse Reactions: Sulfa (Sulfonamide Antibiotics) Allergy (Intermediate, Verified 08/02/22 21:25) Vomiting ketorolac [From Toradol] Allergy (Unknown, Verified 08/02/22 21:25) bee venom protein (honey bee) Allergy (Verified 08/02/22 21:25) methylprednisolone [From Solu-Medrol] Allergy (Verified 08/02/22 21:25) anger can take oral steroids, IV steroids she cannot take -- states she gets "roid rage" sumatriptan [From Imitrex] Allergy (Verified 08/02/22 21:25) nitrofurantoin [From Macrobid] Adverse Reaction (Verified 08/02/22 21:25) tramadol Adverse Reaction (Verified 08/02/22 21:25) Nausea flu vaccine Allergy (Intermediate, Uncoded 08/02/22 21:25) Hoarseness of voice Home Medications: Gabapentin 600 mg PO QID 06/14/19 [History] Escitalopram Oxalate [Lexapro] 1 ea DAILY 11/01/21 [History] Olanzapine 5 mg [zyPREXA 5MG TABLET] 5 mg PO DAILY 07/18/22 [History] Ondansetron ODT 4 MG [Zofran Odt 4 mg] 4 mg PO Q6H PRN PRN 07/18/22 [History] Hx Tetanus, Diphtheria Vaccination/Date Given: Yes Hx Influenza Vaccination/Date Given: No Hx Pneumococcal Vaccination/Date Given: No Travel Risk - Vaccine Status Have you recieved a Covid-19 vaccination: No - Past Medical History Pertinent Past Medical History: Yes Neurological History: Migraines ENT History: No Pertinent History Cardiac History: No Pertinent History Respiratory History: No Pertinent History Endocrine Medical History: No Pertinent History Musculoskeletal History: Fibromyalgia GI Medical History: Gallbladder Disease, Other History: Other Psycho-Social History: Bipolar Female Reproductive Disorders: Other Other Medical History: kidney stones, born with 1 kidney (left only) - Past Surgical History Past Surgical History: Yes Neuro Surgical History: No Pertinent History Cardiac: No Pertinent History Respiratory: No Pertinent History Gastrointestinal: Bowel Surgery, Cholecystectomy Genitourinary: No Pertinent History Musculoskeletal: No Pertinent History Female Surgical History: Hysterectomy, Section, Tubal Ligation Other Surgical History: skin cancer removed twice, Umbilical hernia repair. ruptured hernia- colostomy and reversal - Social History Smoking Status: Never smoker How long have you smoked: 20yrs Exposure to second hand smoke: No Drug Use: none Patient Lives Alone: No Significant Family History: no pertinent family hx - Review of Systems Constitutional: Chills, Fatigue, Weakness, No Fever Eyes: No Symptoms Ears, Nose, & Throat: Nose Congestion, Sinus Drainage, No Throat Pain Respiratory: Cough, No Dyspnea, No Wheezing Cardiac: Chest Pain, Palpitations, No Edema Abdominal/Gastrointestinal: Nausea, Vomiting Genitourinary Symptoms: Dysuria, Frequency, Hematuria, Flank Pain Musculoskeletal: No Symptoms Skin: No Symptoms Neurological: No Symptoms Psychological: Anxiety, Depression, Emotional Lability, Mood Changes, No Suicidal Ideations, No Homicidal Ideations, No Hallucinations - Nursing Vital Signs Nursing Vital Signs: Initial Vital Signs Temperature 98.7 F 08/02/22 21:10 Pulse Rate 93 H 08/02/22 21:10 Respiratory Rate 20 08/02/22 21:10 Blood Pressure 132/84 08/02/22 21:10 O2 Sat by Pulse Oximetry 93 L 08/02/22 21:10 Pain Scale Pain Intensity 0 - Physical Exam General Appearance: no apparent distress Eyes, Ears, Nose, Throat Exam: normal ENT inspection, pharyngeal erythema Neck Exam: normal inspection, non-tender, supple, full range of motion Respiratory Exam: airway intact, diminished breath sounds, wheezing, No re spiratory distress Cardiovascular Exam: normal heart sounds, tachycardia, capillary refill <2 sec, No edema Gastrointestinal/Abdominal Exam: soft, tenderness, No guarding, No rebound Extremities Exam: normal inspection, normal range of motion, No evidence of injury, No tenderness Current Suicidality: denies suicide plan Neurological Exam: alert, calm, pricing director II-XII nml as tested, oriented x 3, anxious, depressed affect, flat Appearance: disheveled, impaired insight Behavior/Eye Contact/Speech: increased rate of speech Thoughts/Hallucinations: no apparent hallucination Skin Exam: normal color, warm, dry SpO2 Interpretation: hypoxic O2 Delivery: Nasal Cannula - Course Nursing assessment & vital signs reviewed: Yes EKG Interpreted by Me: RATE (93), Sinus Rhythm, NORMAL AXIS, NORMAL INTERVALS, NORMAL ST-T, Other (pvcs) - CT Exams Abdomen/Pelvis CT Interpretation: Tele-radiologist Report (Increased fecal retention in the colon w/out evidence of obstruction), Other (Increased fecal retention in the colon w/out evidence of obstruction) Chest CT Interpretation: Negative, Tele-radiologist Report Ordered Tests: Medication Summary Discontinued Medications Generic Name Dose Route Start Last Admin Trade Name Freq PRN Reason Stop Dose Admin Albuterol/Ipratropium 3 ml 08/02/22 21:30 08/02/22 21:35 Ipratropium/Albuterol Sulfate 3 Ml Ampul.Neb IH 08/02/22 21:31 3 ml STAT ONE Administration Albuterol/Ipratropium Confirm 08/02/22 21:36 Ipratropium/Albuterol Sulfate 3 Ml Ampul.Neb Administered 08/02/22 21:37 Dose 3 ml IH .STK-MED ONE Aspirin 324 mg 08/02/22 22:51 08/02/22 23:17 Aspirin 81 Mg Tab.Chew PO 08/02/22 22:52 324 mg STAT ONE Administration Methylprednisolone Sodium 0 mg 08/02/22 21:30 08/02/22 22:31 Succinate 125 mg/ Sterile IV 08/02/22 21:31 Not Given Water 2 ml STAT ONE Sodium Chloride 1,000 mls @ 999 mls/hr 08/02/22 21:30 08/03/22 00:10 Sodium Chloride 0.9% 1000 Ml IV 08/02/22 22:30 Infused .Q1H1M STA Infusion Sodium Chloride Confirm 08/02/22 22:15 Sodium Chloride 0.9% 1000 Ml Administered 08/02/22 22:16 Dose 1,000 mls @ ud .ROUTE .STK-MED ONE Azithromycin 500 mg in 250 mls @ 250 mls/hr 08/02/22 22:49 08/03/22 00:06 Zithromax 500 Mg/ 250 Ml Nacl Premix IV 08/02/22 23:48 250 mls/hr STAT ONE Administration Ceftriaxone Sodium/Dextrose 1 g in 50 mls @ 100 mls/hr 08/02/22 22:49 08/03/22 00:10 Rocephin 1 Gm-D5w 50 Ml Bag IV 08/02/22 23:18 Infused STAT STA Infusion Ceftriaxone Sodium/Dextrose Confirm 08/02/22 23:08 Rocephin 1 Gm-D5w 50 Ml Bag Administered 08/02/22 23:09 Dose 1 g in 50 mls @ ud IV .STK-MED ONE Azithromycin Confirm 08/03/22 00:03 Zithromax 500 Mg/ 250 Ml Nacl Premix Administered 08/03/22 00:04 Dose 500 mg in 250 mls @ ud IV .STK-MED ONE Methylprednisolone Sodium Succinate Confirm 08/02/22 22:15 Methylprednis Sod Succ 125 Mg/2 Ml Vial Administered 08/02/22 22:16 Dose 125 mg .ROUTE .STK-MED ONE Morphine Sulfate 2 mg 08/02/22 22:50 08/02/22 23:16 Morphine Sulfate 2 Mg/Ml Inj IV 08/02/22 22:51 2 mg STAT ONE Administration Morphine Sulfate Confirm 08/02/22 23:14 Morphine Sulfate 2 Mg/Ml Inj Administered 08/02/22 23:15 Dose 2 mg .ROUTE .STK-MED ONE Nitroglycerin 0.4 mg 08/02/22 22:50 08/02/22 23:20 Nitroglycerin 0.4 Mg (Ed) 0.4 Mg Tab.Subl SL 08/02/22 22:51 0.4 mg STAT ONE Administration Sterile Water Confirm 08/02/22 22:16 Water For Injection,Sterile 10 Ml Vial Administered 08/02/22 22:17 Dose 10 ml IJ .STK-MED ONE Lab/Rad Data: Laboratory Result Diagrams 08/02/22 21:55 08/02/22 21:55 Laboratory Results 08/03/22 08/02/22 08/02/22 Range/Units 00:05 22:00 22:00 WBC (4.0-10.5) x10^3/uL RBC (4.1-5.4) x10^6/uL Hgb (12.0-16.0) g/dL Hct (35-47) % MCV (78-100) fL MCH (26-32) pg MCHC (32-36) g/dL RDW (11.5-14.0) % Plt Count (150-450) x10^3/uL MPV (7.5-11.0) fL Gran % (36.0-66.0) % Immature Gran % (Auto) (0.00-0.4) % Nucleat RBC Rel Count (0.00-0.1) % Eos # (Auto) (0-0.5) x10^3/uL Immature Gran # (Auto) (0.00-0.03) x10^3u/L Absolute Lymphs (auto) (1.0-4.6) x10^3/uL Absolute Monos (auto) (0.0-1.3) x10^3/uL Absolute Nucleated RBC (0.00-0.01) x10^3u/L Lymphocytes % (24.0-44.0) % Monocytes % (0.0-12.0) % Eosinophils % (0.00-5.0) % Basophils % (0.0-0.4) % Absolute Granulocytes (1.4-6.9) x10^3/uL Basophils # (0-0.4) x10^3/uL D-Dimer (0.0-0.50) mg/L Sodium (137-145) mmol/L Potassium (3.5-5.1) mmol/L Chloride (98-107) mmol/L Carbon Dioxide (22-30) mmol/L Anion Gap (5-15) MEQ/L BUN (7-17) mg/dL Creatinine (0.52-1.04) mg/dL Estimated GFR ML/MIN Glucose (74-106) mg/dL Lactic Acid 1.2 (0.4-2.0) Calcium (8.4-10.2) mg/dL Magnesium (1.6-2.3) mg/dL Total Bilirubin (0.2-1.3) mg/dL AST (14-36) U/L ALT (0-35) U/L Alkaline Phosphatase (38-126) U/L Troponin I (0.000-0.034) ng/mL NT-Pro-B Natriuret Pep (<300) pg/mL Serum Total Protein (6.3-8.2) g/dL Albumin (3.5-5.0) g/dL Procalcitonin (0.030-0.080) ng/mL Urine Color (Yellow) Urine Appearance (Clear) Urine pH (4.6-8.0) Ur Specific Henderson (1.005-1.030) Urine Protein (Negative) Urine Glucose (UA) (Negative) mg/dL Urine Ketones (Negative) Urine Blood (Negative) Urine Nitrite (Negative) Urine Bilirubin (Negative) Urine Urobilinogen (0.2) mg/dL Ur Leukocyte Esterase (Negative) U Hyaline Cast (Auto) (0-2) /LPF Urine Microscopic RBC (0-5) /HPF Urine Microscopic WBC (0-5) /HPF Ur Epithelial Cells (None Seen) /HPF Urine Bacteria (None Seen) /HPF Urine Culture Reflexed (NO) Urine Opiates Level POSITIVE (NEGATIVE) Ur Methadone NEGATIVE (NEGATIVE) Urine Barbiturates NEGATIVE (NEGATIVE) Ur Phencyclidine (PCP) NEGATIVE (NEGATIVE) Urine Amphetamine POSITIVE (NEGATIVE) U Benzodiazepine Level NEGATIVE (NEGATIVE) Urine Cocaine NEGATIVE (NEGATIVE) Urine Marijuana (THC) NEGATIVE (NEGATIVE) Influenza Type A Ag NEGATIVE (NEGATIVE) Influenza Type B Ag NEGATIVE (NEGATIVE) RSV (PCR) NEGATIVE (NEGATIVE) SARS-CoV-2 (PCR) NEGATIVE (NEGATIVE) 08/02/22 08/02/22 08/02/22 Range/Units 21:55 21:55 21:55 WBC (4.0-10.5) x10^3/uL RBC (4.1-5.4) x10^6/uL Hgb (12.0-16.0) g/dL Hct (35-47) % MCV (78-100) fL MCH (26-32) pg MCHC (32-36) g/dL RDW (11.5-14.0) % Plt Count (150-450) x10^3/uL MPV (7.5-11.0) fL Gran % (36.0-66.0) % Immature Gran % (Auto) (0.00-0.4) % Nucleat RBC Rel Count (0.00-0.1) % Eos # (Auto) (0-0.5) x10^3/uL Immature Gran # (Auto) (0.00-0.03) x10^3u/L Absolute Lymphs (auto) (1.0-4.6) x10^3/uL Absolute Monos (auto) (0.0-1.3) x10^3/uL Absolute Nucleated RBC (0.00-0.01) x10^3u/L Lymphocytes % (24.0-44.0) % Monocytes % (0.0-12.0) % Eosinophils % (0.00-5.0) % Basophils % (0.0-0.4) % Absolute Granulocytes (1.4-6.9) x10^3/uL Basophils # (0-0.4) x10^3/uL D-Dimer 0.37 (0.0-0.50) mg/L Sodium 142 (137-145) mmol/L Potassium 3.8 (3.5-5.1) mmol/L Chloride 111 H (98-107) mmol/L Carbon Dioxide 19 L (22-30) mmol/L Anion Gap 14.7 (5-15) MEQ/L BUN 11 (7-17) mg/dL Creatinine 0.52 (0.52-1.04) mg/dL Estimated GFR > 60.0 ML/MIN Glucose 124 H (74-106) mg/dL Lactic Acid (0.4-2.0) Calcium 8.6 (8.4-10.2) mg/dL Magnesium 1.9 (1.6-2.3) mg/dL Total Bilirubin 0.30 (0.2-1.3) mg/dL AST 27 (14-36) U/L ALT 24 (0-35) U/L Alkaline Phosphatase 117 (38-126) U/L Troponin I < 0.012 (0.000-0.034) ng/mL NT-Pro-B Natriuret Pep < 20.0 (<300) pg/mL Serum Total Protein 7.8 (6.3-8.2) g/dL Albumin 4.2 (3.5-5.0) g/dL Procalcitonin 0.070 (0.030-0.080) ng/mL Urine Color (Yellow) Urine Appearance (Clear) Urine pH (4.6-8.0) Ur Specific Henderson (1.005-1.030) Urine Protein (Negative) Urine Glucose (UA) (Negative) mg/dL Urine Ketones (Negative) Urine Blood (Negative) Urine Nitrite (Negative) Urine Bilirubin (Negative) Urine Urobilinogen (0.2) mg/dL Ur Leukocyte Esterase (Negative) U Hyaline Cast (Auto) (0-2) /LPF Urine Microscopic RBC (0-5) /HPF Urine Microscopic WBC (0-5) /HPF Ur Epithelial Cells (None Seen) /HPF Urine Bacteria (None Seen) /HPF Urine Culture Reflexed (NO) Urine Opiates Level (NEGATIVE) Ur Methadone (NEGATIVE) Urine Barbiturates (NEGATIVE) Ur Phencyclidine (PCP) (NEGATIVE) Urine Amphetamine (NEGATIVE) U Benzodiazepine Level (NEGATIVE) Urine Cocaine (NEGATIVE) Urine Marijuana (THC) (NEGATIVE) Influenza Type A Ag (NEGATIVE) Influenza Type B Ag (NEGATIVE) RSV (PCR) (NEGATIVE) SARS-CoV-2 (PCR) (NEGATIVE) 08/02/22 08/02/22 Range/Units 21:55 21:46 WBC 12.6 H (4.0-10.5) x10^3/uL RBC 4.31 (4.1-5.4) x10^6/uL Hgb 13.7 (12.0-16.0) g/dL Hct 42.8 (35-47) % MCV 99.3 (78-100) fL MCH 31.8 (26-32) pg MCHC 32.0 (32-36) g/dL RDW 13.8 (11.5-14.0) % Plt Count 395 (150-450) x10^3/uL MPV 8.6 (7.5-11.0) fL Gran % 73.8 H (36.0-66.0) % Immature Gran % (Auto) 0.5 H (0.00-0.4) % Nucleat RBC Rel Count 0.0 (0.00-0.1) % Eos # (Auto) 0.49 (0-0.5) x10^3/uL Immature Gran # (Auto) 0.06 H (0.00-0.03) x10^3u/L Absolute Lymphs (auto) 2.09 (1.0-4.6) x10^3/uL Absolute Monos (auto) 0.65 (0.0-1.3) x10^3/uL Absolute Nucleated RBC 0.00 (0.00-0.01) x10^3u/L Lymphocytes % 16.5 L (24.0-44.0) % Monocytes % 5.1 (0.0-12.0) % Eosinophils % 3.9 (0.00-5.0) % Basophils % 0.2 (0.0-0.4) % Absolute Granulocytes 9.33 H (1.4-6.9) x10^3/uL Basophils # 0.02 (0-0.4) x10^3/uL D-Dimer (0.0-0.50) mg/L Sodium (137-145) mmol/L Potassium (3.5-5.1) mmol/L Chloride (98-107) mmol/L Carbon Dioxide (22-30) mmol/L Anion Gap (5-15) MEQ/L BUN (7-17) mg/dL Creatinine (0.52-1.04) mg/dL Estimated GFR ML/MIN Glucose (74-106) mg/dL Lactic Acid (0.4-2.0) Calcium (8.4-10.2) mg/dL Magnesium (1.6-2.3) mg/dL Total Bilirubin (0.2-1.3) mg/dL AST (14-36) U/L ALT (0-35) U/L Alkaline Phosphatase (38-126) U/L Troponin I (0.000-0.034) ng/mL NT-Pro-B Natriuret Pep (<300) pg/mL Serum Total Protein (6.3-8.2) g/dL Albumin (3.5-5.0) g/dL Procalcitonin (0.030-0.080) ng/mL Urine Color Dark Yellow A (Yellow) Urine Appearance Cloudy A (Clear) Urine pH 6.0 (4.6-8.0) Ur Specific Henderson 1.025 (1.005-1.030) Urine Protein 30 (Negative) Urine Glucose (UA) Negative (Negative) mg/dL Urine Ketones Trace A (Negative) Urine Blood Negative (Negative) Urine Nitrite Negative (Negative) Urine Bilirubin Negative (Negative) Urine Urobilinogen 1.0 A (0.2) mg/dL Ur Leukocyte Esterase Small A (Negative) U Hyaline Cast (Auto) 3-5 A (0-2) /LPF Urine Microscopic RBC 11-20 A (0-5) /HPF Urine Microscopic WBC 11-20 A (0-5) /HPF Ur Epithelial Cells Many A (None Seen) /HPF Urine Bacteria Many A (None Seen) /HPF Urine Culture Reflexed YES (NO) Urine Opiates Level (NEGATIVE) Ur Methadone (NEGATIVE) Urine Barbiturates (NEGATIVE) Ur Phencyclidine (PCP) (NEGATIVE) Urine Amphetamine (NEGATIVE) U Benzodiazepine Level (NEGATIVE) Urine Cocaine (NEGATIVE) Urine Marijuana (THC) (NEGATIVE) Influenza Type A Ag (NEGATIVE) Influenza Type B Ag (NEGATIVE) RSV (PCR) (NEGATIVE) SARS-CoV-2 (PCR) (NEGATIVE) - Progress Progress: improved Progress Note: Patient CP w/u neg for cardiac etiology, No PE or PNA. She has undiagnosed COPD and is a QD smoker so she responded well to DuoNebs and abx. Patient was also found to have a UTI that was treated w/ Rocephin. Her CT abd/pelvis was neg for acute findings other than fecal stasis. Patient clear from a medical standpoint for transfer to inpatient psych facility for further treatment. Will d/c w/ Keflex for UTI. Counseled pt/family regarding: lab results, diagnosis, rad results Medical Desision Making - Diagnostic Testing Diagnostic test were ordered, analyzed, and reviewed by me: Yes Radiological Interpretation: Reviewed by me, Teleradiologist Report - Risk of complications The pt has a mod risk of morbidity or mortality based on: Need for prescription drug management The pt has a high risk of morbidity or mortality based on: Decision regarding hospitilization or escalation of hosp level of care - Departure Departure Disposition: Transfer ([facility] psych) Clinical Impression: Bipolar affective, manic, UTI (urinary tract infection), COPD (chronic obstructive pulmonary disease), Acute exacerbation of psychosis, Constipation Condition: Good Critical Care Time: No Referrals: GASTON CAMPUZANO [Primary Care Provider] - Follow up/PCP as directed Instructions: Chronic Obstructive Pulmonary Disease, Bipolar Disorder (DC)
[2022-08-02] MEDS ORDERED: DUONEB 0.5-3 MG/3 ml Neb IH ONE ×2 (21:30→21:36)
[2022-08-02] MEDS ORDERED: solu-MEDROL 125 MG, Sterile H2O 10 ml 2 ML IV ONE ×2 (21:30)
[2022-08-02] MEDS ORDERED: Sodium Chloride 0.9% 1000 ML 1,000 ML IV STA (21:30)
[2022-08-02 22:06] LABS: Absolute Neutrophil Ct (ANC) 9.33 x10^3/uL (1.4-6.9); BASOPHIL % 0.2 % (0.0-0.4); Basophil (Absolute #) 0.02 x10^3/uL (0-0.4); Eosinophil % 3.9 % (0.00-5.0); Eosinophil (Absolute #) 0.49 x10^3/uL (0-0.5); Hematocrit 42.8 % (35-47); Hemoglobin 13.7 g/dL (12.0-16.0); IMMATURE GRAN # 0.06 x10^3u/L (0.00-0.03); IMMATURE GRAN % 0.5 % (0.00-0.4); Lymphocyte (Absolute #) 2.09 x10^3/uL (1.0-4.6); Lymphocytes % 16.5 % (24.0-44.0); Mean Cell Volume 99.3 fL (78-100); Mean Corpuscular Hemoglobin 31.8 pg (26-32); Mean Platelet Volume 8.6 fL (7.5-11.0); Monocyte (Absolute #) 0.65 x10^3/uL (0.0-1.3); Monocytes % 5.1 % (0.0-12.0); Neutrophil % 73.8 % (36.0-66.0); Platelet Count 395 x10^3/uL (150-450); Red Blood Count 4.31 x10^6/uL (4.1-5.4); Red Cell Distribution Width 13.8 % (11.5-14.0); White Blood Count 12.6 x10^3/uL (4.0-10.5)
[2022-08-02] MEDS ORDERED: Sodium Chloride 0.9% 1000 ML 1,000 ML ONE (22:15)
[2022-08-02] MEDS ORDERED: solu-MEDROL ONE (22:15)
[2022-08-02] MEDS ORDERED: Sterile H2O 10 ml IJ ONE (22:16)
[2022-08-02 22:20] LABS: Appearance Cloudy (Clear); Bacteria Many /HPF (None Seen); Bilirubin Negative (Negative); Blood Negative (Negative); Epithelial Cells Many /HPF (None Seen); Glucose, Urine Negative (Negative); Ketones Trace (Negative); Leukocyte Esterase Small (Negative); Nitrite Negative (Negative); Protein,Urine Dip 30 (Negative); Specific Gravity 1.025 (1.005-1.030)
[2022-08-02 22:24] LABS: ADD URINE CULTURE? YES (NO)
[2022-08-02 22:42] LABS: ALBUMIN 4.2 g/dL (3.5-5.0); ALKALINE PHOSPHATASE 117 U/L (38-126); ANION GAP 14.7 MEQ/L (5-15); BLOOD UREA NITROGEN 11 mg/dL (7-17); CHLORIDE 111 mmol/L (98-107); Calcium 8.6 mg/dL (8.4-10.2); Carbon Dioxide 19 mmol/L (22-30); Creatinine 1 0.52 mg/dL (0.52-1.04); EST GLOMERULAR FILTRATION RATE > 60.0 ML/MIN; Glucose 124 mg/dL (74-106); MAGNESIUM 1.9 mg/dL (1.6-2.3); NT PRO BNPII < 20.0 pg/mL (<300); Potassium 3.8 mmol/L (3.5-5.1); SGOT/AST 27 U/L (14-36); SGPT/ALT 24 U/L (0-35); SODIUM 142 mmol/L (137-145); TROPONIN < 0.012 ng/mL (0.000-0.034); Total Protein 7.8 g/dL (6.3-8.2)
[2022-08-02] MEDS ORDERED: Zithromax 500 MG/ 250 ML NaCl Premix 500 MG/250 ML IVPB IV ONE (22:49)
[2022-08-02] MEDS ORDERED: ROCEPHIN 1 Gm-D5w 50 ml Bag** 1 G/50 ML IVPB IV STA (22:49)
[2022-08-02] MEDS ORDERED: Nitrostat 0.4 MG (ED) SL ONE (22:50)
[2022-08-02] MEDS ORDERED: MORPHINE SULFATE 2 MG INJ IV ONE (22:50)
[2022-08-02 22:51] LABS: INFLUENZA A NEGATIVE (NEGATIVE); INFLUENZA B NEGATIVE (NEGATIVE); RESPIRATORY SYNCTIAL VIRUS NEGATIVE (NEGATIVE); SARS-CoV-2 Xpert Express NEGATIVE (NEGATIVE)
[2022-08-02] MEDS ORDERED: BABY ASPIRIN 81 MG CHEW PO ONE (22:51)
[2022-08-02] MEDS ORDERED: ROCEPHIN 1 Gm-D5w 50 ml Bag** 1 G/50 ML IVPB IV ONE (23:08)
[2022-08-02] MEDS ORDERED: MORPHINE SULFATE 2 MG INJ ONE (23:14)
[2022-08-03] MEDS ORDERED: Zithromax 500 MG/ 250 ML NaCl Premix 500 MG/250 ML IVPB IV ONE (00:03)
[2022-08-03 00:56] LABS: Barbiturate,Urine NEGATIVE (NEGATIVE); Benzodiazepine,Urine NEGATIVE (NEGATIVE); Cocaine,Urine NEGATIVE (NEGATIVE); Methadone,Urine NEGATIVE (NEGATIVE); Opiate,Urine POSITIVE (NEGATIVE); PCP,Urine NEGATIVE (NEGATIVE); THC,Urine NEGATIVE (NEGATIVE)
[2022-08-03 01:21] LABS: Amphetamine,Urine POSITIVE (NEGATIVE)
[2022-08-03 04:04] VITALS: BP 99/75; PULSE 80; O2SAT 94
--- NOTE | 2022-08-03 07:59 | XRAY ---
Indication: Chest pain and short of breath. Multiple contiguous axial images obtained through the chest without contrast. Comparison: November 01, 2021 Lungs demonstrates very minimal bibasilar dependent atelectasis. Stable tiny right lung calcified granulomas. No suspicious pulmonary mass/nodule, infiltrate, effusion, or pneumothorax. Heart not enlarged. Aorta is normal in course and caliber. Stable right hilar calcified nodes. No pathologic mediastinal lymphadenopathy. Bony thorax intact. CT abdomen/pelvis reported separately. Impression: Again incidental old granulomatous disease. Remaining CT chest without contrast exam continues to be negative. Comment: Preliminary interpretation made by C. No critical discrepancy.
--- NOTE | 2022-08-03 08:05 | XRAY ---
Indication: Abdomen and pelvic pain. Congenitally absent right kidney. Multiple contiguous axial images obtained through the abdomen and pelvis without contrast. Comparison: July 04, 2022 CT chest reported separately. Stomach is now distended with food/fluid. Noncontrasted stomach and bowel loops nonobstructed. Again moderate diffuse scattered colonic fecal debris throughout. Intact sigmoid anastomosis. Again nonobstructing left renal punctate calculus, congenitally absent right kidney, IVC duplication, splenic calcified granulomas, cholecystectomy, and hysterectomy. No free fluid/air. Remaining liver, pancreas, spleen, adrenal glands, left kidney, left ureter, and bladder are unremarkable for noncontrast exam. Stable minimal aortoiliac calcifications without AAA. Impression: No change compared to CT one month ago. Again moderate diffuse fecal stasis, nonobstructing left renal micro-calculus, congenitally absent right kidney, IVC duplication, arteriosclerotic disease, and old granulomatous disease. No new/acute findings. Comment: Preliminary interpretation made by [facility] [place]. No critical discrepancy.
== END 2022-08-03 05:09 ==
LOC: ED 21:09
DX: F23 Brief psychotic disorder (principal); F31.2 Bipolar disorder, current episode manic severe with psychotic features; N39.0 Urinary tract infection, site not specified; J44.9 Chronic obstructive pulmonary disease, unspecified; K59.00 Constipation, unspecified; Z79.899 Other long term (current) drug therapy; Z28.310 Unvaccinated for COVID-19
CPT/HCPCS: 0241U; 36000; 36415; 71250; 74176; 80053; 80307; 81001; 83605; 83735; 83880; 84145; 84484; 85025; 85379; 87040; 87086; 93005; 93041; 94640; 94760; 96365; 96367; 96374; 99285; 96375; J0456; J0696; J2270; J2930; A9270-GY

== ENCOUNTER 2023-03-14 22:45 | Inpatient (IN) | payer OTHER ==
[2023-03-14] MEDS ORDERED: Zofran 4 MG/2 ML VIAL IV ONE (22:59)
--- NOTE | 2023-03-14 22:59 | ERPHSYRPT ---
- History of Present Illness Time Seen by Provider: 03/14/23 22:55 Source: patient, EMS, old records, police Exam Limitations: clinical condition, intoxication Physician History: This is an edentulous white female patient of Dr. Zuluaga who was brought into our emergency department by paramedics escorted by law enforcement secondary to possible overdose. Patient has altered mental status but she is arousable from a lethargic state and answered questions. She denies being suicidal or homicidal. However, her thinks that she possibly was attempting to overdose. Patient has a history of bipolar disorder with manic episodes. She has required frequent hospitalizations for mental illness issues. Patient has a history of migraine headaches, fibromyalgia. Patient is on olanzapine and she took an unknown amount of this medication. A pill bottle was brought in that was filled on 08/08 for 15 tablets. There were 4 tablets missing. A pill bottle of magnesium oxide 400 mg was brought into the hospital that was filled in September 2022 and there were 28 out of 30 tablets still present in the bottle. We did obtain independent, additional history from the patient's and there was significant number of hydrocodone, Voltaren tablets and gabapentin tablets missing from prescriptions that were filled within the last week or 2. It is unclear how many of these medication tablets were taken. Patient arrives to the emergency department with a respiratory rate between 14 and 17, she is afebrile, her blood pressure was 114/78 and her heart rate was in the 70s to 80s. Patient has no specific complaints. I did speak with the poison quality control lab tech Jozef, upon arrival of this patient to the emergency department. Timing/Duration: today Severity of Symptoms-Max: moderate Severity of Symptoms-Current: moderate Context related to: other (Unknown reason) Suicidal thoughts: other (Patient denies) Associated Symptoms: impaired concentration, ingestion, other (Patient intoxicated) Previous symptoms: same symptoms as today, no recent treatment Allergies/Adverse Reactions: Sulfa (Sulfonamide Antibiotics) Allergy (Intermediate, Verified 03/14/23 22:48) Vomiting ketorolac [From Toradol] Allergy (Unknown, Verified 03/14/23 22:48) bee venom protein (honey bee) Allergy (Verified 03/14/23 22:48) methylprednisolone [From Solu-Medrol] Allergy (Verified 03/14/23 22:48) anger can take oral steroids, IV steroids she cannot take -- states she gets "roid rage" sumatriptan [From Imitrex] Allergy (Verified 03/14/23 22:48) nitrofurantoin [From Macrobid] Adverse Reaction (Verified 03/14/23 22:48) tramadol Adverse Reaction (Verified 03/14/23 22:48) Nausea flu vaccine Allergy (Intermediate, Uncoded 08/02/22 21:25) Hoarseness of voice Home Medications: Gabapentin 600 mg PO QID 06/14/19 [History] Escitalopram Oxalate [Lexapro] 1 ea DAILY 11/01/21 [History] Olanzapine 5 mg [zyPREXA 5MG TABLET] 5 mg PO DAILY 07/18/22 [History] Ondansetron ODT 4 MG [Zofran Odt 4 mg] 4 mg PO Q6H PRN PRN 07/18/22 [History] Hx Tetanus, Diphtheria Vaccination/Date Given: Yes Hx Influenza Vaccination/Date Given: No Hx Pneumococcal Vaccination/Date Given: No Travel Risk - International Travel Have you traveled outside of the country in past 3 weeks: No - Coronavirus Screening Are you exhibiting any of the following symptoms?: No Close contact with a COVID-19 positive Pt in past 14-21 Days: No - Vaccine Status Have you recieved a Covid-19 vaccination: No - Past Medical History Pertinent Past Medical History: Yes Neurological History: Migraines ENT History: No Pertinent History Cardiac History: No Pertinent History Respiratory History: No Pertinent History Endocrine Medical History: No Pertinent History Musculoskeletal History: Fibromyalgia GI Medical History: Gallbladder Disease, Other History: Other Psycho-Social History: Bipolar Female Reproductive Disorders: Other Other Medical History: kidney stones, born with 1 kidney (left only) - Past Surgical History Past Surgical History: Yes Neuro Surgical History: No Pertinent History Cardiac: No Pertinent History Respiratory: No Pertinent History Gastrointestinal: Bowel Surgery, Cholecystectomy Genitourinary: No Pertinent History Musculoskeletal: No Pertinent History Female Surgical History: Hysterectomy, Section, Tubal Ligation Other Surgical History: skin cancer removed twice, Umbilical hernia repair. ruptured hernia- colostomy and reversal - Social History Smoking Status: Never smoker How long have you smoked: 20yrs Exposure to second hand smoke: No Drug Use: none Patient Lives Alone: No Significant Family History: no pertinent family hx - Review of Systems Constitutional: Lethargy Eyes: No Symptoms Ears, Nose, & Throat: No Symptoms Respiratory: No Symptoms Cardiac: No Symptoms Abdominal/Gastrointestinal: No Symptoms Genitourinary Symptoms: No Symptoms Musculoskeletal: No Symptoms Skin: No Symptoms Neurological: Lethargy (Mental status changes), Other Psychological: Other (Patient is intoxicated but does deny suicidal or homicidal ideation.) Endocrine: No Symptoms Hematologic/Lymphatic: No Symptoms Immunological/Allergic: No Symptoms All Other Systems: Reviewed and Negative - Nursing Vital Signs Nursing Vital Signs: Initial Vital Signs Temperature 96.7 F 03/14/23 22:55 Pulse Rate 62 03/14/23 22:55 Respiratory Rate 18 03/14/23 22:55 Blood Pressure 90/78 03/14/23 22:55 O2 Sat by Pulse Oximetry 96 03/14/23 22:55 Pain Scale Pain Intensity 6 - Physical Exam General Appearance: lethargy Eyes, Ears, Nose, Throat Exam: normal ENT inspection, dry mucous membranes Neck Exam: normal inspection, non-tender, supple, full range of motion Respiratory Exam: normal breath sounds, lungs clear, airway intact, No chest te nderness, No respiratory distress Cardiovascular Exam: regular rate/rhythm, normal heart sounds, normal peripheral pulses Gastrointestinal/Abdominal Exam: soft, normal bowel sounds, No tenderness Extremities Exam: normal inspection, normal range of motion, No evidence of injury Current Suicidality: denies suicide plan Neurological Exam: pathology tech II-XII nml as tested (Lethargic but arousable) Appearance: disheveled, impaired insight, impaired recent memory, impaired remote memory Behavior/Eye Contact/Speech: intoxicated appearance Skin Exam: normal color, warm, dry SpO2 Interpretation: normal O2 Delivery: Room Air - Course Nursing assessment & vital signs reviewed: Yes EKG Interpreted by Me: RATE (81), Sinus Rhythm, Left [place] Deviation (Borderline), NORMAL INTERVALS, NORMAL QRS, NORMAL ST-T, Other (No acute ischemic changes on today's twelve-lead EKG.) Ordered Tests: Active Orders 24 hr Category Date Time Status Newspaper Correspondent STAT Care 03/14/23 23:00 Active Catheter-Tennyson Spangler STAT Care 03/14/23 22:59 Active EKG-ER Only STAT Care 03/14/23 22:59 Active EKG-ER Only STAT Care 03/15/23 04:28 Active IV Insertion STAT Care 03/14/23 22:59 Active POCT Glucose Check STAT Care 03/14/23 22:59 Active HEAD WITHOUT CONTRAST [CT] Stat Exams 03/14/23 23:00 Completed ABG [ARTERIAL BLOOD GASES] Routine Lab 03/15/23 02:37 Completed ABG [ARTERIAL BLOOD GASES] Routine Lab 03/15/23 04:32 Completed ABG [ARTERIAL BLOOD GASES] Stat Lab 03/14/23 23:03 Completed ACETAMINOPHEN Stat Lab 03/14/23 23:15 Completed BMP Stat Lab 03/15/23 02:20 Completed CBC W DIFF Stat Lab 03/14/23 23:15 Completed CMP Stat Lab 03/14/23 23:15 Completed CULTURE,URINE Stat Lab 03/14/23 23:07 Received ETHYL ALCOHOL Stat Lab 03/14/23 23:15 Completed Lactic Acid Routine Lab 03/14/23 23:03 Completed MAG [MAGNESIUM] Stat Lab 03/14/23 23:38 Completed Manual Differential NC Stat Lab 03/14/23 23:15 Completed POCT GLUCOSE Stat Lab 03/14/23 23:49 Completed SALICYLATE Stat Lab 03/14/23 23:15 Completed UA W/RFX UR CULTURE Stat Lab 03/14/23 23:07 Completed Urine Triage Profile Stat Lab 03/14/23 23:07 Completed Transfer Order Routine Transfer 03/15/23 Ordered Medication Summary Generic Name Dose Route Start Last Admin Trade Name Freq PRN Reason Stop Dose Admin Sodium Chloride 1,000 mls @ 100 mls/hr 03/14/23 23:00 03/14/23 23:47 Sodium Chloride 0.9% 1000 Ml IV 04/13/23 22:59 Not Given .Q10H OMAR Sodium Chloride 1,000 mls @ 150 mls/hr 03/14/23 23:45 03/15/23 04:05 Sodium Chloride 0.9% 1000 Ml IV 04/13/23 23:44 150 mls/hr .Q6H40M OMAR Administration Discontinued Medications Generic Name Dose Route Start Last Admin Trade Name Freq PRN Reason Stop Dose Admin Sodium Chloride 1,000 mls @ 999 mls/hr 03/15/23 00:17 03/15/23 02:16 Sodium Chloride 0.9% 1000 Ml IV 03/15/23 01:17 Infused .Q1H1M STA Infusion Ceftriaxone Sodium/Dextrose 1 g in 50 mls @ 100 mls/hr 03/15/23 00:17 03/15/23 01:00 Rocephin 1 Gm-D5w 50 Ml Bag IV 03/15/23 00:46 Infused STAT STA Infusion Ceftriaxone Sodium/Dextrose Confirm 03/15/23 00:22 Rocephin 1 Gm-D5w 50 Ml Bag Administered 03/15/23 00:23 Dose 1 g in 50 mls @ ud IV .STK-MED ONE Sodium Chloride 1,000 mls @ 999 mls/hr 03/15/23 02:49 03/15/23 04:07 Sodium Chloride 0.9% 1000 Ml IV 03/15/23 03:49 Infused .Q1H1M STA Infusion Ondansetron HCl 4 mg 03/14/23 22:59 03/14/23 23:10 Ondansetron Hcl 4 Mg/2 Ml Vial IV 03/14/23 23:00 4 mg STAT ONE Administration Ondansetron HCl Confirm 03/14/23 23:09 Ondansetron Hcl 4 Mg/2 Ml Vial Administered 03/14/23 23:10 Dose 4 mg .ROUTE .STK-MED ONE Pantoprazole Sodium 40 mg 03/14/23 23:37 03/14/23 23:53 Pantoprazole 40 Mg Vial IV 03/14/23 23:38 40 mg STAT ONE Administration Pantoprazole Sodium Confirm 03/14/23 23:51 Pantoprazole 40 Mg Vial Administered 03/14/23 23:52 Dose 40 mg IV .STK-MED ONE Sodium Bicarbonate 50 meq 03/15/23 02:49 03/15/23 02:55 Sodium Bicarbonate 1 Meq/Ml 50ml Syringe IV 03/15/23 02:50 50 meq STAT ONE Administration Sodium Bicarbonate Confirm 03/15/23 02:54 Sodium Bicarbonate 1 Meq/Ml 50ml Syringe Administered 03/15/23 02:55 Dose 50 meq IV .STK-MED ONE Lab/Rad Data: Laboratory Result Diagrams 03/14/23 23:15 03/15/23 04:32 Laboratory Results 03/15/23 03/15/23 03/15/23 Range/Units 04:32 02:37 02:20 WBC (4.0-10.5) x10^3/uL RBC (4.1-5.4) x10^6/uL Hgb (12.0-16.0) g/dL Hct (35-47) % MCV (78-100) fL MCH (26-32) pg MCHC (32-36) g/dL RDW (11.5-14.0) % Plt Count (150-450) x10^3/uL MPV (7.5-11.0) fL Segmented Neutrophils (36.0-66.0) % Band Neutrophils (0.0-2.0) % Lymphocytes (Manual) (24-44) % Monocytes (Manual) (0.0-12.0) % Platelet Estimate (NORMAL) RBC Morphology Puncture Site LEFT BRACHIAL LEFT BRACHIAL pCO2 37 32 L (35-45) mmHg pO2 94 146 H* (75-100) mmHg Base Excess -11.8 L -13.9 L (-2.0-2.0) O2 Saturation 95 96 (94-100) g/dF ABG pH 7.22 L* 7.21 L* (7.35-7.45) ABG HCO3 15 L* 12.8 L* (22-28) ABG O2 Sat (Measured) 95 97 (95-100) % David Test NOT APPLICABLE NOT APPLICABLE A-a Gradient 88 42 a/A Ratio 0.52 0.78 Hemoglobin 12.0 12.0 Carboxyhemoglobin 0.0 0.5 (0.0-6.9) % THgb Methemoglobin 0.0 L 0.0 L (1.4-1.5) % Potassium 3.5 3.7 3.6 (3.5-5.1) Temperature C POC O2 Flow Rate 32 32 % Sodium 139 (137-145) mmol/L Chloride 116 H (98-107) mmol/L Carbon Dioxide 16 L 14 L 12 L* (22-30) mmol/L Anion Gap 13.5 (5-15) MEQ/L BUN 28 H (7-17) mg/dL Creatinine 1.06 H (0.52-1.04) mg/dL Estimated GFR 59.3 ML/MIN Glucose 111 H (74-106) mg/dL POC Glucometer (74 to 106) mg/dL Lactic Acid (0.4-2.0) Calcium 7.0 L (8.4-10.2) mg/dL Magnesium (1.6-2.3) mg/dL Total Bilirubin (0.2-1.3) mg/dL AST (14-36) U/L ALT (0-35) U/L Alkaline Phosphatase (38-126) U/L Serum Total Protein (6.3-8.2) g/dL Albumin (3.5-5.0) g/dL Urine Color (Yellow) Urine Appearance (Clear) Urine pH (4.6-8.0) Ur Specific [place] (1.005-1.030) Urine Protein (Negative) Urine Glucose (UA) (Negative) mg/dL Urine Ketones (Negative) Urine Blood (Negative) Urine Nitrite (Negative) Urine Bilirubin (Negative) Urine Urobilinogen (0.2) mg/dL Ur Leukocyte Esterase (Negative) U Hyaline Cast (Auto) (0-2) /LPF Urine Microscopic RBC (0-5) /HPF Urine Microscopic WBC (0-5) /HPF Ur Epithelial Cells (None Seen) /HPF Urine Bacteria (None Seen) /HPF Urine Culture Reflexed (NO) Salicylates (2-20) mg/dL Urine Opiates Level (NEGATIVE) Ur Methadone (NEGATIVE) Acetaminophen (10-30) ug/ml Urine Barbiturates (NEGATIVE) Ur Phencyclidine (PCP) (NEGATIVE) Urine Amphetamine (NEGATIVE) U Benzodiazepine Level (NEGATIVE) Urine Cocaine (NEGATIVE) Urine Marijuana (THC) (NEGATIVE) Ethyl Alcohol (0-10) mg/dL 03/14/23 03/14/23 03/14/23 Range/Units 23:49 23:38 23:15 WBC (4.0-10.5) x10^3/uL RBC (4.1-5.4) x10^6/uL Hgb (12.0-16.0) g/dL Hct (35-47) % MCV (78-100) fL MCH (26-32) pg MCHC (32-36) g/dL RDW (11.5-14.0) % Plt Count (150-450) x10^3/uL MPV (7.5-11.0) fL Segmented Neutrophils (36.0-66.0) % Band Neutrophils (0.0-2.0) % Lymphocytes (Manual) (24-44) % Monocytes (Manual) (0.0-12.0) % Platelet Estimate (NORMAL) RBC Morphology Puncture Site pCO2 (35-45) mmHg pO2 (75-100) mmHg Base Excess (-2.0-2.0) O2 Saturation (94-100) g/dF ABG pH (7.35-7.45) ABG HCO3 (22-28) ABG O2 Sat (Measured) (95-100) % David Test A-a Gradient a/A Ratio Hemoglobin Carboxyhemoglobin (0.0-6.9) % THgb Methemoglobin (1.4-1.5) % Potassium 3.8 (3.5-5.1) Temperature C POC O2 Flow Rate % Sodium 137 (137-145) mmol/L Chloride 111 H (98-107) mmol/L Carbon Dioxide 12 L* (22-30) mmol/L Anion Gap 17.2 H (5-15) MEQ/L BUN 33 H (7-17) mg/dL Creatinine 1.58 H (0.52-1.04) mg/dL Estimated GFR 37.4 ML/MIN Glucose 123 H (74-106) mg/dL POC Glucometer 101 (74 to 106) mg/dL Lactic Acid (0.4-2.0) Calcium 8.1 L (8.4-10.2) mg/dL Magnesium 2.7 H (1.6-2.3) mg/dL Total Bilirubin 0.60 (0.2-1.3) mg/dL AST 39 H (14-36) U/L ALT 31 (0-35) U/L Alkaline Phosphatase 123 (38-126) U/L Serum Total Protein 6.8 (6.3-8.2) g/dL Albumin 4.0 (3.5-5.0) g/dL Urine Color (Yellow) Urine Appearance (Clear) Urine pH (4.6-8.0) Ur Specific [place] (1.005-1.030) Urine Protein (Negative) Urine Glucose (UA) (Negative) mg/dL Urine Ketones (Negative) Urine Blood (Negative) Urine Nitrite (Negative) Urine Bilirubin (Negative) Urine Urobilinogen (0.2) mg/dL Ur Leukocyte Esterase (Negative) U Hyaline Cast (Auto) (0-2) /LPF Urine Microscopic RBC (0-5) /HPF Urine Microscopic WBC (0-5) /HPF Ur Epithelial Cells (None Seen) /HPF Urine Bacteria (None Seen) /HPF Urine Culture Reflexed (NO) Salicylates < 1.0 L (2-20) mg/dL Urine Opiates Level (NEGATIVE) Ur Methadone (NEGATIVE) Acetaminophen < 10 L (10-30) ug/ml Urine Barbiturates (NEGATIVE) Ur Phencyclidine (PCP) (NEGATIVE) Urine Amphetamine (NEGATIVE) U Benzodiazepine Level (NEGATIVE) Urine Cocaine (NEGATIVE) Urine Marijuana (THC) (NEGATIVE) Ethyl Alcohol < 10 (0-10) mg/dL 03/14/23 03/14/23 03/14/23 Range/Units 23:15 23:07 23:07 WBC 25.5 H* (4.0-10.5) x10^3/uL RBC 3.96 L (4.1-5.4) x10^6/uL Hgb 12.8 (12.0-16.0) g/dL Hct 38.7 (35-47) % MCV 97.7 (78-100) fL MCH 32.3 H (26-32) pg MCHC 33.1 (32-36) g/dL RDW 12.9 (11.5-14.0) % Plt Count 436 (150-450) x10^3/uL MPV 8.9 (7.5-11.0) fL Segmented Neutrophils 90 H (36.0-66.0) % Band Neutrophils 3 H (0.0-2.0) % Lymphocytes (Manual) 2 L (24-44) % Monocytes (Manual) 5 (0.0-12.0) % Platelet Estimate NORMAL (NORMAL) RBC Morphology NORMAL Puncture Site pCO2 (35-45) mmHg pO2 (75-100) mmHg Base Excess (-2.0-2.0) O2 Saturation (94-100) g/dF ABG pH (7.35-7.45) ABG HCO3 (22-28) ABG O2 Sat (Measured) (95-100) % David Test A-a Gradient a/A Ratio Hemoglobin Carboxyhemoglobin (0.0-6.9) % THgb Methemoglobin (1.4-1.5) % Potassium (3.5-5.1) Temperature C POC O2 Flow Rate % Sodium (137-145) mmol/L Chloride (98-107) mmol/L Carbon Dioxide (22-30) mmol/L Anion Gap (5-15) MEQ/L BUN (7-17) mg/dL Creatinine (0.52-1.04) mg/dL Estimated GFR ML/MIN Glucose (74-106) mg/dL POC Glucometer (74 to 106) mg/dL Lactic Acid (0.4-2.0) Calcium (8.4-10.2) mg/dL Magnesium (1.6-2.3) mg/dL Total Bilirubin (0.2-1.3) mg/dL AST (14-36) U/L ALT (0-35) U/L Alkaline Phosphatase (38-126) U/L Serum Total Protein (6.3-8.2) g/dL Albumin (3.5-5.0) g/dL Urine Color Dark Yellow A (Yellow) Urine Appearance Turbid A (Clear) Urine pH 5.0 (4.6-8.0) Ur Specific [place] >=1.030 A (1.005-1.030) Urine Protein 100 A (Negative) Urine Glucose (UA) Negative (Negative) mg/dL Urine Ketones Trace A (Negative) Urine Blood Large A (Negative) Urine Nitrite Positive A (Negative) Urine Bilirubin Moderate A (Negative) Urine Urobilinogen 1.0 A (0.2) mg/dL Ur Leukocyte Esterase Moderate A (Negative) U Hyaline Cast (Auto) >50 A (0-2) /LPF Urine Microscopic RBC 51-100 A (0-5) /HPF Urine Microscopic WBC 21-50 A (0-5) /HPF Ur Epithelial Cells Few (None Seen) /HPF Urine Bacteria Many A (None Seen) /HPF Urine Culture Reflexed ORDERED SEPARATELY (NO) Salicylates (2-20) mg/dL Urine Opiates Level NEGATIVE (NEGATIVE) Ur Methadone NEGATIVE (NEGATIVE) Acetaminophen (10-30) ug/ml Urine Barbiturates NEGATIVE (NEGATIVE) Ur Phencyclidine (PCP) NEGATIVE (NEGATIVE) Urine Amphetamine POSITIVE (NEGATIVE) U Benzodiazepine Level NEGATIVE (NEGATIVE) Urine Cocaine NEGATIVE (NEGATIVE) Urine Marijuana (THC) NEGATIVE (NEGATIVE) Ethyl Alcohol (0-10) mg/dL 03/14/23 03/14/23 Range/Units 23:03 23:03 WBC (4.0-10.5) x10^3/uL RBC (4.1-5.4) x10^6/uL Hgb (12.0-16.0) g/dL Hct (35-47) % MCV (78-100) fL MCH (26-32) pg MCHC (32-36) g/dL RDW (11.5-14.0) % Plt Count (150-450) x10^3/uL MPV (7.5-11.0) fL Segmented Neutrophils (36.0-66.0) % Band Neutrophils (0.0-2.0) % Lymphocytes (Manual) (24-44) % Monocytes (Manual) (0.0-12.0) % Platelet Estimate (NORMAL) RBC Morphology Puncture Site RIGHT BRACHIAL pCO2 33 L (35-45) mmHg pO2 69 L (75-100) mmHg Base Excess -11.2 L (-2.0-2.0) O2 Saturation 91.7 L (94-100) g/dF ABG pH 7.26 L (7.35-7.45) ABG HCO3 14.8 L* (22-28) ABG O2 Sat (Measured) 92.2 L (95-100) % David Test NOT APPLICABLE A-a Gradient 39 a/A Ratio 0.64 Hemoglobin 13.8 Carboxyhemoglobin 0.5 (0.0-6.9) % THgb Methemoglobin 0.0 L (1.4-1.5) % Potassium 4.2 (3.5-5.1) Temperature 37.0 C POC O2 Flow Rate 21 % Sodium (137-145) mmol/L Chloride (98-107) mmol/L Carbon Dioxide (22-30) mmol/L Anion Gap (5-15) MEQ/L BUN (7-17) mg/dL Creatinine (0.52-1.04) mg/dL Estimated GFR ML/MIN Glucose (74-106) mg/dL POC Glucometer (74 to 106) mg/dL Lactic Acid 0.6 (0.4-2.0) Calcium (8.4-10.2) mg/dL Magnesium (1.6-2.3) mg/dL Total Bilirubin (0.2-1.3) mg/dL AST (14-36) U/L ALT (0-35) U/L Alkaline Phosphatase (38-126) U/L Serum Total Protein (6.3-8.2) g/dL Albumin (3.5-5.0) g/dL Urine Color (Yellow) Urine Appearance (Clear) Urine pH (4.6-8.0) Ur Specific [place] (1.005-1.030) Urine Protein (Negative) Urine Glucose (UA) (Negative) mg/dL Urine Ketones (Negative) Urine Blood (Negative) Urine Nitrite (Negative) Urine Bilirubin (Negative) Urine Urobilinogen (0.2) mg/dL Ur Leukocyte Esterase (Negative) U Hyaline Cast (Auto) (0-2) /LPF Urine Microscopic RBC (0-5) /HPF Urine Microscopic WBC (0-5) /HPF Ur Epithelial Cells (None Seen) /HPF Urine Bacteria (None Seen) /HPF Urine Culture Reflexed (NO) Salicylates (2-20) mg/dL Urine Opiates Level (NEGATIVE) Ur Methadone (NEGATIVE) Acetaminophen (10-30) ug/ml Urine Barbiturates (NEGATIVE) Ur Phencyclidine (PCP) (NEGATIVE) Urine Amphetamine (NEGATIVE) U Benzodiazepine Level (NEGATIVE) Urine Cocaine (NEGATIVE) Urine Marijuana (THC) (NEGATIVE) Ethyl Alcohol (0-10) mg/dL - Progress Progress: re-examined Progress Note: 03/14/23 23:35 This patient's medical issue is 1 of high complexity. Level complexity in the work-up performed is based on the history of present illness, physical findings on examination, review of the patient's past medical history, review the patient's medication list, review of the patient's drug allergy list. The work- up in this patient includes contacting the Poison Control Center, placement of intravenous line, infusion of normal saline solution, infusion of Zofran IV, infusion of Protonix IV, magnesium level, CBC, CMP, urinalysis, urine triage, alcohol level, salicylate level, acetaminophen level and CT scan of the head. We also performed a twelve-lead EKG. We also obtained COVID 19 test 03/14/23 23:38 I spoke at great length with Jozef at the poison control center. He is a poison quality control lab tech. I reviewed all of the information that I had on this patient. We assume the worst case scenario. We reviewed the labs that were to be obtained during this patient's emergency room evaluation visit. We are to watch for seizures and use benzodiazepines to help control seizures if present. In addition, if patient begins to have respiratory depression, we can give Narca n. Per Jozef, other than that its supportive care and hospital observation until patient at baseline. 03/15/23 00:03 CT scan of the head was interpreted by the radiologist and I reviewed the impression. There is no evidence of any intracranial abnormality. 03/15/23 00:15 03/15/23 05:[address] Stoddard, the telehospitalist on-call at this time and I reviewed the patient past medical history, presenting complaint/issue, physical findings on examination, work-up performed, results of that work-up and patient response to our intervention. We are both puzzled about the ABG findings. However the patient has remained hemodynamically stable and her mental status is slowly becoming less altered. She has a normal CT scan of the head without contrast. She has had 2 normal twelve-lead EKGs. Her anion gap has resolved. Her oxygen saturations level have improved. She is making urine. He agrees to accept the patient for admission into ICU where we will continue intravenous fluids, in travenous Rocephin, repeat labs and telemetry monitoring. 03/15/23 05:13 Repeat twelve-lead EKG shows normal sinus rhythm with a heart rate of 75 bpm. There is borderline left axis deviation. There is no evidence of any acute ischemic changes. Counseled pt/family regarding: lab results, diagnosis, rad results Medical Desision Making - Independent Historian Additional History obtained from: Spouse, Communication Equipment Repairer/EMT (And long enforcement) - External Record(s) Reviewed Records reviewed as a part of evaluation & management: EMS - Discussion of managment Care discussed with:: hospitalist (Dr. Stoddard) Reviewed:: Test results, Need for additional workup Agreed on:: decision to admit Will see patient: in hospital - Social Determinants of Health Pt's dx & treatment plan are significantly limited by SDOH: Unemployed Limited access to: transportation - Diagnostic Testing Radiological Interpretation: Reviewed by me, Teleradiologist Report - Risk of complications The pt has a high risk of morbidity or mortality based on: Decision regarding hospitilization or escalation of hosp level of care - Departure Departure Disposition: In-patient Admission Clinical Impression: UTI (urinary tract infection), Overdose by ingestion, Lethargy Condition: Fair Critical Care Time: Yes Critical Care Time(excluding separately billable procedures): Critical 30-74 mins (60 minutes) Referrals: GASTON ZULUAGA [Primary Care Provider] - Follow up/PCP as directed
[2023-03-14] MEDS ORDERED: Sodium Chloride 0.9% 1000 ML 1,000 ML IV SCH (23:00)
[2023-03-14 23:08] LABS: A-aADO2 39; ABG HEMOGLOBIN 13.8; ABG POTASSIUM 4.2 (3.5-5.1); ABG SITE RIGHT BRACHIAL; ARTERIAL BLD GAS O2 SATURATION 92.2 % (95-100); ARTERIAL BLOOD GAS BASE EXCESS -11.2 (-2.0-2.0); ARTERIAL BLOOD GAS FIO2 21 %; ARTERIAL BLOOD GAS PCO2 33 mmHg (35-45); ARTERIAL BLOOD GAS PO2 69 mmHg (75-100); ARTERIAL BLOOD GAS pH 7.26 (7.35-7.45); CARBOXYHEMOGLOBIN 0.5 % THgb (0.0-6.9); HCO3- 14.8 (22-28); HGB O2 SAT 91.7 g/dF (94-100); paO2 pAO1 0.64
[2023-03-14] MEDS ORDERED: Zofran 4 MG/2 ML VIAL ONE (23:09)
[2023-03-14 23:24] LABS: Hematocrit 38.7 % (35-47); Hemoglobin 12.8 g/dL (12.0-16.0); Mean Cell Volume 97.7 fL (78-100); Mean Corpuscular Hemoglobin 32.3 pg (26-32); Mean Corpuscular Hgb Concent. 33.1 g/dL (32-36); Mean Platelet Volume 8.9 fL (7.5-11.0); Platelet Count 436 x10^3/uL (150-450); Red Blood Count 3.96 x10^6/uL (4.1-5.4); Red Cell Distribution Width 12.9 % (11.5-14.0)
[2023-03-14 23:32] LABS: Appearance Turbid (Clear); Bacteria Many /HPF (None Seen); Bilirubin Moderate (Negative); Blood Large (Negative); Epithelial Cells Few /HPF (None Seen); Glucose, Urine Negative (Negative); Hyaline Casts >50 /LPF (0-2); Ketones Trace (Negative); Leukocyte Esterase Moderate (Negative); Nitrite Positive (Negative); Protein,Urine Dip 100 (Negative); RBC 51-100 /HPF (0-5); Specific Gravity >=1.030 (1.005-1.030); WBC 21-50 /HPF (0-5)
[2023-03-14 23:34] LABS: ADD URINE CULTURE? ORDERED SEPARATELY (NO)
[2023-03-14 23:35] LABS: ACETAMINOPHEN < 10 ug/ml (10-30); ALKALINE PHOSPHATASE 123 U/L (38-126); ANION GAP 17.2 MEQ/L (5-15); BLOOD UREA NITROGEN 33 mg/dL (7-17); CHLORIDE 111 mmol/L (98-107); Calcium 8.1 mg/dL (8.4-10.2); Creatinine 1 1.58 mg/dL (0.52-1.04); EST GLOMERULAR FILTRATION RATE 37.4 ML/MIN; ETHYL ALCOHOL < 10 mg/dL (0-10); Glucose 123 mg/dL (74-106); Potassium 3.8 mmol/L (3.5-5.1); SALICYLATE < 1.0 mg/dL (2-20); SGOT/AST 39 U/L (14-36); SGPT/ALT 31 U/L (0-35); SODIUM 137 mmol/L (137-145); Total Protein 6.8 g/dL (6.3-8.2)
[2023-03-14] MEDS ORDERED: PROTONIX 40 MG IV IV ONE ×2 (23:37→23:51)
[2023-03-14 23:40] LABS: Barbiturate,Urine NEGATIVE (NEGATIVE); Benzodiazepine,Urine NEGATIVE (NEGATIVE); Cocaine,Urine NEGATIVE (NEGATIVE); Methadone,Urine NEGATIVE (NEGATIVE); Opiate,Urine NEGATIVE (NEGATIVE); PCP,Urine NEGATIVE (NEGATIVE); THC,Urine NEGATIVE (NEGATIVE)
[2023-03-14 23:47] LABS: White Blood Count 25.5 x10^3/uL (4.0-10.5)
[2023-03-14 23:48] LABS: Carbon Dioxide 12 mmol/L (22-30)
[2023-03-14] MEDS ORDERED: Sodium Chloride 0.9% 1000 ML 1,000 ML ONE (23:49)
[2023-03-14] MEDS: Sodium Chloride 0.9% 1000 ML 1,000 ML IV SCH (23:53)
--- NOTE | 2023-03-14 23:53 | XRAY ---
CLINICAL HISTORY:Altered mental status COMPARISON:None. TECHNIQUE:Axial non-contrast CT scan of the brain was performed from the skull base to the high parietal region. Coronal and sagittal reconstructions were also obtained. FINDINGS: The visualized brain parenchyma shows a normal appearance. [place]-white matter differentiation is maintained. No midline shifts or deformity. No intracerebral or extra axial hematoma. Normal size and configuration of the cerebral ventricles. Normal CT appearance of the posterior fossa structures namely the cerebellar hemispheres, brainstem and cerebellar peduncles. The IACs are unremarkable. The cerebello-pontine angles are clear. The osseous structures in the skull base are unremarkable. No definite calvarium fractures. Mucosal opacification of ethmoid sinus. Otherwise, the rest of the scanned paranasal sinuses are clear. IMPRESSION: Thenon-enhanced CT study for the brain is unremarkable. Electronically Signed by: Daniel Nj MD. (03/14/2023 22:51:31 CARE CONNECTOR)
[2023-03-15 00:01] LABS: Amphetamine,Urine POSITIVE (NEGATIVE)
[2023-03-15] MEDS ORDERED: Sodium Chloride 0.9% 1000 ML 1,000 ML IV STA ×2 (00:17→02:49)
[2023-03-15] MEDS ORDERED: ROCEPHIN 1 Gm-D5w 50 ml Bag** 1 G/50 ML IVPB IV STA (00:17)
[2023-03-15] MEDS ORDERED: Sodium Chloride 0.9% 1000 ML 1,000 ML ONE ×3 (00:22→04:04)
[2023-03-15] MEDS ORDERED: ROCEPHIN 1 Gm-D5w 50 ml Bag** 1 G/50 ML IVPB IV ONE (00:22)
[2023-03-15 00:25] LABS: BAND 3 % (0.0-2.0); Lymphocytes 2 % (24-44); Monocyte 5 % (0.0-12.0); Neutrophils 90 % (36.0-66.0); Platelet Estimate NORMAL (NORMAL); Total Cells Counted 100
[2023-03-15 02:42] LABS: ARTERIAL BLOOD GAS pH 7.21 (7.35-7.45)
[2023-03-15 02:43] LABS: A-aADO2 42; ARTERIAL BLD GAS O2 SATURATION 97 % (95-100); ARTERIAL BLOOD GAS BASE EXCESS -13.9 (-2.0-2.0); ARTERIAL BLOOD GAS PCO2 32 mmHg (35-45); ARTERIAL BLOOD GAS PO2 146 mmHg (75-100); HCO3- 12.8 (22-28)
[2023-03-15 02:44] LABS: ABG POTASSIUM 3.7 (3.5-5.1); ARTERIAL BLOOD GAS FIO2 32 %; CARBOXYHEMOGLOBIN 0.5 % THgb (0.0-6.9); HGB O2 SAT 96 g/dF (94-100); paO2 pAO1 0.78
[2023-03-15 02:45] LABS: ABG SITE LEFT BRACHIAL; CARBON DIOXIDE 14 mEq/L (23-27)
[2023-03-15] MEDS ORDERED: SODIUM BICARBONATE 50 MEQ/50 ML ABBOJECT IV ONE ×3 (02:49→05:22)
[2023-03-15 03:05] LABS: ANION GAP 13.5 MEQ/L (5-15); Creatinine 1 1.06 mg/dL (0.52-1.04); EST GLOMERULAR FILTRATION RATE 59.3 ML/MIN; Potassium 3.6 mmol/L (3.5-5.1)
[2023-03-15] MEDS: Sodium Chloride 0.9% 1000 ML 1,000 ML IV SCH ×3 (04:05→12:27)
[2023-03-15 04:43] LABS: ARTERIAL BLD GAS O2 SATURATION 95 % (95-100); ARTERIAL BLOOD GAS BASE EXCESS -11.8 (-2.0-2.0); ARTERIAL BLOOD GAS PCO2 37 mmHg (35-45); ARTERIAL BLOOD GAS PO2 94 mmHg (75-100); ARTERIAL BLOOD GAS pH 7.22 (7.35-7.45); CARBON DIOXIDE 16 mEq/L (23-27); HCO3- 15 (22-28)
[2023-03-15 04:44] LABS: A-aADO2 88; ABG POTASSIUM 3.5 (3.5-5.1); ABG SITE LEFT BRACHIAL; ARTERIAL BLOOD GAS FIO2 32 %; HGB O2 SAT 95 g/dF (94-100); paO2 pAO1 0.52
[2023-03-15] MEDS ORDERED: PROVENTIL 2.5 MG/3 ML NEB IH PRN (07:09)
[2023-03-15] MEDS ORDERED: Narcan 0.4 MG/ML IV PRN (07:55)
[2023-03-15] MEDS ORDERED: MAG-OX 400 PO ONE (08:02)
[2023-03-15 08:08] LABS: A-aADO2 32; ABG HEMOGLOBIN 11.7; ABG POTASSIUM 3.2 (3.5-5.1); ARTERIAL BLD GAS O2 SATURATION 94.1 % (95-100); ARTERIAL BLOOD GAS BASE EXCESS -11.9 (-2.0-2.0); ARTERIAL BLOOD GAS FIO2 21 %; ARTERIAL BLOOD GAS PCO2 35 mmHg (35-45); ARTERIAL BLOOD GAS PO2 74 mmHg (75-100); HCO3- 14.7 (22-28); HGB O2 SAT 94.1 g/dF (94-100)
[2023-03-15 08:09] LABS: ARTERIAL BLOOD GAS pH 7.23 (7.35-7.45)
[2023-03-15 08:10] LABS: ABG SITE LEFT BRACHIAL
[2023-03-15] MEDS: TYLENOL 325 MG PO PRN ×3 (08:19→23:10)
[2023-03-15] MEDS ORDERED: Calcium Gluconate 10% 1000 MG 1,000 MG in Sodium Chloride 0.9% 100 ML IV ONE ×2 (08:35→14:22)
--- NOTE | 2023-03-15 09:27 | XRAY ---
CLINICAL HISTORY:elevated WBC COMPARISON:none TECHNIQUE:X ray of the chest, AP view. FINDINGS: Subtle haziness noted in the left lower zone and in the left costophrenic angle region likely non-specific. No consolidation seen. Normal configuration of the mediastinum. The cardiac size is normal. The bony thorax is unremarkable. The right costophrenic and cardiophrenic angles are clear. A tubes seen overlying right upper neck. IMPRESSION: Subtle haziness noted in the left lower zone and in the left costophrenic angle region likely [id number], however clinical correlation is advised to rule out pulmonary infection and follow-up is suggested. Electronically Signed by: Daniel Nj MD. (03/15/2023 08:26:57 [employer])
[2023-03-15 09:36] LABS: Hematocrit 41.6 % (35-47); Hemoglobin 13.2 g/dL (12.0-16.0); Mean Corpuscular Hemoglobin 31.7 pg (26-32); Mean Corpuscular Hgb Concent. 31.7 g/dL (32-36); Platelet Count 403 x10^3/uL (150-450); Red Blood Count 4.16 x10^6/uL (4.1-5.4)
[2023-03-15] MEDS ORDERED: PHARMACY DOSING REQUEST MC ONE (09:42)
[2023-03-15] MEDS ORDERED: SODIUM BICARBONATE PO SCH (10:00)
[2023-03-15] MEDS ORDERED: ROCEPHIN 1 Gm-D5w 50 ml Bag** 1 G/50 ML IVPB IV SCH ×2 (10:00→22:00)
[2023-03-15 10:01] LABS: ALBUMIN 2.9 g/dL (3.5-5.0); ALKALINE PHOSPHATASE 110 U/L (38-126); BLOOD UREA NITROGEN 25 mg/dL (7-17); CHLORIDE 115 mmol/L (98-107); Calcium 7.2 mg/dL (8.4-10.2); Creatinine 1 0.85 mg/dL (0.52-1.04); EST GLOMERULAR FILTRATION RATE > 60.0 ML/MIN; Glucose 156 mg/dL (74-106); Potassium 3.6 mmol/L (3.5-5.1); SGOT/AST 31 U/L (14-36); SGPT/ALT 27 U/L (0-35); SODIUM 139 mmol/L (137-145); Total Protein 5.3 g/dL (6.3-8.2)
[2023-03-15 10:04] LABS: Carbon Dioxide 15 mmol/L (22-30)
[2023-03-15] MEDS: Sodium Bicarbonate 50 MEQ/50 ML VIAL*** 100 MEQ in Dextrose 5%/Water IV Soln. 1000 ML 1... IV SCH (10:11)
--- NOTE | 2023-03-15 10:59 | PCM.HP ---
History of Present Illness - Chief Complaint Chief Complaint: overdose Date: 03/15/23 History of Present Illness: is a 48 year old female with PMH of migranes, fibromyalgia, bipolar, born with 1 kidney. She is a patient of Dr. Zuluaga. She was brought into our emergency department by paramedics escorted by law enforcement secondary to possible overdose. Patient has altered mental status but was arousable from a lethargic state and answered questions. She denies being suicidal or homicidal. However, her thinks that she possibly was attempting to overdose. Patient has a history of bipolar disorder with manic episodes. She has required frequent hospitalizations for mental illness issues. Patient is on olanzapine and she took an unknown amount of this medication. A pill bottle was brought in that was filled on 08/08 for 15 tablets. There were 4 tablets missing. A pill bottle of magnesium oxide 400 mg was brought into the hospital that was filled in September 2022 and there were 28 out of 30 tablets still present in the bottle. We did obtain independent, additional history from the patient's and there was significant number of hydrocodone, Voltaren tablets and gabapentin tablets missing from prescriptions that were filled within the last week or 2. It is unclear how many of these medication tablets were taken. In the emergency department respiratory rate was between 14 and 17, afebrile,blood pressure was 114/78 heart rate was in the 70s to 80s. Patient has no specific complaints. ER MD spoke with poison document control coordinator Jozef, upon arrival of this patient to the emergency department. It was recommended she be prescribed narcan PRN and a benzo if she has a seizure. Upon looking further at her fill hx online the only med she appears to have filled recently was zyprexa. Her UDS was positive for amphetamines and she does admit to using recently but unable to recall when. Today she has diarrhea and this was sent for further eval. Bed set up for seizure precautions, she has not had a seizure since admission. Since she is so sleepy I will not add a benzo for now. Narcan was added PRN. She denies suicidal or homicidal ideation. She explained it depends on the day if she is getting along with her and would not elaborate.Will consult psych for further eval. BARBIE has resolved since IV fluids gave in ER. Bicarb gtt started. Calcium and magnesium replaced. Pt states she overall does not feel well and is tired. She is currently in the ICU. She denies Cp, SOB, N/V. She admits to abd cramping r/t diarrhea. - Review of Systems Constitutional: Fatigue, No Fever, No Chills Eyes: No Symptoms Ears, Nose, & Throat: No Symptoms Respiratory: No Cough, No Short Of Breath Cardiac: No Chest Pain, No Edema, No Syncope Abdominal/Gastrointestinal: Abdominal Pain, Diarrhea, No Nausea, No Vomiting Genitourinary Symptoms: No Dysuria Musculoskeletal: No Back Pain, No Neck Pain Skin: No Rash Neurological: No Dizziness, No Focal Weakness, No Sensory Changes Psychological: No Symptoms, Drug Abuse Endocrine: No Symptoms Hematologic/Lymphatic: No Symptoms Immunological/Allergic: No Symptoms Medications & Allergies Home Medications: Home Medication List Gabapentin 600 mg PO QID PRN 06/14/19 [History Confirmed 03/15/23] Dicyclomine HCl 20 mg [Bentyl 20 mg] 20 mg PO QID 10 Days #40 tablet 02/15/22 [Rx Confirmed 03/15/23] Ondansetron ODT 4 MG [Zofran Odt 4 mg] 8 mg PO Q6H PRN PRN 07/18/22 [H istory Confirmed 03/15/23] Allergies/Adverse Reactions: Allergies Allergy/AdvReac Type Severity Reaction Status Date / Time Sulfa (Sulfonamide Allergy Intermediate Vomiting Verified 03/14/23 22:48 Antibiotics) ketorolac [From Toradol] Allergy Unknown Verified 03/14/23 22:48 bee venom protein (honey bee) Allergy Verified 03/14/23 22:48 methylprednisolone Allergy anger Verified 03/14/23 22:48 [From Solu-Medrol] sumatriptan [From Imitrex] Allergy Verified 03/14/23 22:48 nitrofurantoin AdvReac Verified 03/14/23 22:48 [From Macrobid] tramadol AdvReac Nausea Verified 03/14/23 22:48 flu vaccine Allergy Intermediate Hoarseness Uncoded 08/02/22 21:25 of voice - Past Medical History Past Medical History: Yes Neurological History: Migraines ENT History: No Pertinent History Cardiac History: No Pertinent History Respiratory History: No Pertinent History Endocrine Medical History: No Pertinent History Musculoskelatal History: Fibromyalgia GI Medical History: Gallbladder Disease, Other History: Other Pyscho-Social History: Bipolar Reproductive Disorders: Other Comment: kidney stones, born with 1 kidney (left only) - Female History Hx Last Menstrual Period: unable to assess Are you now?: No (unable to assess) - Past Surgical History Past Surgical History: Yes Neuro Surgical History: No Pertinent History Cardiac History: No Pertinent History Respiratory Surgery: No Pertinent History GI Surgical History: Bowel Surgery, Cholecystectomy Genitourinary Surgical Hx: No Pertinent History Musculskeletal Surgical Hx: No Pertinent History Female Surgical History: Hysterectomy, Section, Tubal Ligation Other Surgical History: skin cancer removed twice, Umbilical hernia repair. ruptured hernia- colostomy and reversal - Social History Smoking Status: Never smoker How long have you smoked: 20yrs Exposure to second hand smoke: No Alcohol: None Drug Use: none Significant Family History: no pertinent family hx - Physical Exam Vital Signs: Vital Signs - 24 hr Temp Pulse Resp BP BP Pulse Ox 03/15/23 08:09 98.8 F 71 18 108/73 97 03/15/23 08:00 71 03/15/23 07:24 78 12 100 03/15/23 06:48 12 98 03/15/23 05:39 73 16 101/77 98 03/15/23 05:30 75 11 L 123/96 99 03/15/23 05:00 72 14 112/75 100 03/15/23 04:31 73 17 123/78 99 03/15/23 04:01 97.7 F 82 18 128/79 98 03/15/23 03:30 79 13 132/83 98 03/15/23 03:00 77 10 L 106/91 100 03/15/23 02:00 96.8 F 76 21 114/79 96 03/15/23 01:30 75 27 H 120/80 98 03/15/23 01:00 73 22 117/83 94 L 03/15/23 00:30 74 13 110/71 96 03/15/23 00:00 97.3 F 78 24 109/77 92 L 03/14/23 23:50 78 25 H 110/73 94 L 03/14/23 23:49 80 24 94 L 03/14/23 23:47 80 27 H 93 L 03/14/23 23:09 96.7 F 110 H 18 90/78 96 03/14/23 23:00 79 24 114/78 95 03/14/23 22:55 96.7 F 62 18 90/78 96 General Appearance: no apparent distress, alert Neurologic Exam: alert, oriented x 3, cooperative, normal mood/affect, nml cerebellar function, nml station & gait, sensation nml, No motor deficits Eye Exam: PERRL/EOMI, eyes nml inspection Ears, Nose, Throat Exam: normal ENT inspection, TMs normal, pharynx normal, moist mucous membranes Neck Exam: normal inspection, non-tender, supple, full range of motion Respiratory Exam: normal breath sounds, lungs clear, No respiratory distress Cardiovascular Exam: regular rate/rhythm, normal heart sounds, normal peripheral pulses Gastrointestinal/Abdomen Exam: soft, normal bowel sounds, tenderness (generalized), No mass Back Exam: normal inspection, normal range of motion, No CVA tenderness, No vertebral tenderness Extremity Exam: normal inspection, normal range of motion, pelvis stable Skin Exam: normal color, warm, dry, No rash Lymphatic Exam: No adenopathy Results - Labs Lab/Micro Results: Lab Results-Last 24 Hours 03/14/23 03/14/23 03/14/23 Range/Units 23:03 23:03 23:07 WBC (4.0-10.5) x10^3/uL RBC (4.1-5.4) x10^6/uL Hgb (12.0-16.0) g/dL Hct (35-47) % MCV (78-100) fL MCH (26-32) pg MCHC (32-36) g/dL RDW (11.5-14.0) % Plt Count (150-450) x10^3/uL MPV (7.5-11.0) fL Segmented Neutrophils (36.0-66.0) % Band Neutrophils (0.0-2.0) % Lymphocytes (Manual) (24-44) % Monocytes (Manual) (0.0-12.0) % Platelet Estimate (NORMAL) RBC Morphology Puncture Site RIGHT BRACHIAL pCO2 33 L (35-45) mmHg pO2 69 L (75-100) mmHg Base Excess -11.2 L (-2.0-2.0) O2 Saturation 91.7 L (94-100) g/dF ABG pH 7.26 L (7.35-7.45) ABG HCO3 14.8 L* (22-28) ABG O2 Sat (Measured) 92.2 L (95-100) % David Test NOT APPLICABLE A-a Gradient 39 a/A Ratio 0.64 Hemoglobin 13.8 Carboxyhemoglobin 0.5 (0.0-6.9) % THgb Methemoglobin 0.0 L (1.4-1.5) % Potassium 4.2 (3.5-5.1) Temperature 37.0 C POC O2 Flow Rate 21 % Sodium (137-145) mmol/L Chloride (98-107) mmol/L Carbon Dioxide (22-30) mmol/L Anion Gap (5-15) MEQ/L BUN (7-17) mg/dL Creatinine (0.52-1.04) mg/dL Estimated GFR ML/MIN Glucose (74-106) mg/dL POC Glucometer (74 to 106) mg/dL Hemoglobin A1c (4.5-6.0) % Lactic Acid 0.6 (0.4-2.0) Calcium (8.4-10.2) mg/dL Magnesium (1.6-2.3) mg/dL Total Bilirubin (0.2-1.3) mg/dL AST (14-36) U/L ALT (0-35) U/L Alkaline Phosphatase (38-126) U/L Serum Total Protein (6.3-8.2) g/dL Albumin (3.5-5.0) g/dL TSH 3rd Generation (0.47-4.68) mIU/L Urine Color Dark Yellow A (Yellow) Urine Appearance Turbid A (Clear) Urine pH 5.0 (4.6-8.0) Ur Specific [place] >=1.030 A (1.005-1.030) Urine Protein 100 A (Negative) Urine Glucose (UA) Negative (Negative) mg/dL Urine Ketones Trace A (Negative) Urine Blood Large A (Negative) Urine Nitrite Positive A (Negative) Urine Bilirubin Moderate A (Negative) Urine Urobilinogen 1.0 A (0.2) mg/dL Ur Leukocyte Esterase Moderate A (Negative) U Hyaline Cast (Auto) >50 A (0-2) /LPF Urine Microscopic RBC 51-100 A (0-5) /HPF Urine Microscopic WBC 21-50 A (0-5) /HPF Ur Epithelial Cells Few (None Seen) /HPF Urine Bacteria Many A (None Seen) /HPF Urine Culture Reflexed ORDERED SEPARATELY (NO) Salicylates (2-20) mg/dL Urine Opiates Level (NEGATIVE) Ur Methadone (NEGATIVE) Acetaminophen (10-30) ug/ml Urine Barbiturates (NEGATIVE) Ur Phencyclidine (PCP) (NEGATIVE) Urine Amphetamine (NEGATIVE) U Benzodiazepine Level (NEGATIVE) Urine Cocaine (NEGATIVE) Urine Marijuana (THC) (NEGATIVE) Ethyl Alcohol (0-10) mg/dL 03/14/23 03/14/23 03/14/23 Range/Units 23:07 23:15 23:15 WBC 25.5 H* (4.0-10.5) x10^3/uL RBC 3.96 L (4.1-5.4) x10^6/uL Hgb 12.8 (12.0-16.0) g/dL Hct 38.7 (35-47) % MCV 97.7 (78-100) fL MCH 32.3 H (26-32) pg MCHC 33.1 (32-36) g/dL RDW 12.9 (11.5-14.0) % Plt Count 436 (150-450) x10^3/uL MPV 8.9 (7.5-11.0) fL Segmented Neutrophils 90 H (36.0-66.0) % Band Neutrophils 3 H (0.0-2.0) % Lymphocytes (Manual) 2 L (24-44) % Monocytes (Manual) 5 (0.0-12.0) % Platelet Estimate NORMAL (NORMAL) RBC Morphology NORMAL Puncture Site pCO2 (35-45) mmHg pO2 (75-100) mmHg Base Excess (-2.0-2.0) O2 Saturation (94-100) g/dF ABG pH (7.35-7.45) ABG HCO3 (22-28) ABG O2 Sat (Measured) (95-100) % David Test A-a Gradient a/A Ratio Hemoglobin Carboxyhemoglobin (0.0-6.9) % THgb Methemoglobin (1.4-1.5) % Potassium 3.8 (3.5-5.1) Temperature C POC O2 Flow Rate % Sodium 137 (137-145) mmol/L Chloride 111 H (98-107) mmol/L Carbon Dioxide 12 L* (22-30) mmol/L Anion Gap 17.2 H (5-15) MEQ/L BUN 33 H (7-17) mg/dL Creatinine 1.58 H (0.52-1.04) mg/dL Estimated GFR 37.4 ML/MIN Glucose 123 H (74-106) mg/dL POC Glucometer (74 to 106) mg/dL Hemoglobin A1c (4.5-6.0) % Lactic Acid (0.4-2.0) Calcium 8.1 L (8.4-10.2) mg/dL Magnesium (1.6-2.3) mg/dL Total Bilirubin 0.60 (0.2-1.3) mg/dL AST 39 H (14-36) U/L ALT 31 (0-35) U/L Alkaline Phosphatase 123 (38-126) U/L Serum Total Protein 6.8 (6.3-8.2) g/dL Albumin 4.0 (3.5-5.0) g/dL TSH 3rd Generation (0.47-4.68) mIU/L Urine Color (Yellow) Urine Appearance (Clear) Urine pH (4.6-8.0) Ur Specific [place] (1.005-1.030) Urine Protein (Negative) Urine Glucose (UA) (Negative) mg/dL Urine Ketones (Negative) Urine Blood (Negative) Urine Nitrite (Negative) Urine Bilirubin (Negative) Urine Urobilinogen (0.2) mg/dL Ur Leukocyte Esterase (Negative) U Hyaline Cast (Auto) (0-2) /LPF Urine Microscopic RBC (0-5) /HPF Urine Microscopic WBC (0-5) /HPF Ur Epithelial Cells (None Seen) /HPF Urine Bacteria (None Seen) /HPF Urine Culture Reflexed (NO) Salicylates < 1.0 L (2-20) mg/dL Urine Opiates Level NEGATIVE (NEGATIVE) Ur Methadone NEGATIVE (NEGATIVE) Acetaminophen < 10 L (10-30) ug/ml Urine Barbiturates NEGATIVE (NEGATIVE) Ur Phencyclidine (PCP) NEGATIVE (NEGATIVE) Urine Amphetamine POSITIVE (NEGATIVE) U Benzodiazepine Level NEGATIVE (NEGATIVE) Urine Cocaine NEGATIVE (NEGATIVE) Urine Marijuana (THC) NEGATIVE (NEGATIVE) Ethyl Alcohol < 10 (0-10) mg/dL 10/27/23 10/27/23 10/28/23 Range/Units 23:38 23:49 02:20 WBC (4.0-10.5) x10^3/uL RBC (4.1-5.4) x10^6/uL Hgb (12.0-16.0) g/dL Hct (35-47) % MCV (78-100) fL MCH (26-32) pg MCHC (32-36) g/dL RDW (11.5-14.0) % Plt Count (150-450) x10^3/uL MPV (7.5-11.0) fL Segmented Neutrophils (36.0-66.0) % Band Neutrophils (0.0-2.0) % Lymphocytes (Manual) (24-44) % Monocytes (Manual) (0.0-12.0) % Platelet Estimate (NORMAL) RBC Morphology Puncture Site pCO2 (35-45) mmHg pO2 (75-100) mmHg Base Excess (-2.0-2.0) O2 Saturation (94-100) g/dF ABG pH (7.35-7.45) ABG HCO3 (22-28) ABG O2 Sat (Measured) (95-100) % David Test A-a Gradient a/A Ratio Hemoglobin Carboxyhemoglobin (0.0-6.9) % THgb Methemoglobin (1.4-1.5) % Potassium 3.6 (3.5-5.1) Temperature C POC O2 Flow Rate % Sodium 139 (137-145) mmol/L Chloride 116 H (98-107) mmol/L Carbon Dioxide 12 L* (22-30) mmol/L Anion Gap 13.5 (5-15) MEQ/L BUN 28 H (7-17) mg/dL Creatinine 1.06 H (0.52-1.04) mg/dL Estimated GFR 59.3 ML/MIN Glucose 111 H (74-106) mg/dL POC Glucometer 101 (74 to 106) mg/dL Hemoglobin A1c (4.5-6.0) % Lactic Acid (0.4-2.0) Calcium 7.0 L (8.4-10.2) mg/dL Magnesium 2.7 H (1.6-2.3) mg/dL Total Bilirubin (0.2-1.3) mg/dL AST (14-36) U/L ALT (0-35) U/L Alkaline Phosphatase (38-126) U/L Serum Total Protein (6.3-8.2) g/dL Albumin (3.5-5.0) g/dL TSH 3rd Generation (0.47-4.68) mIU/L Urine Color (Yellow) Urine Appearance (Clear) Urine pH (4.6-8.0) Ur Specific [place] (1.005-1.030) Urine Protein (Negative) Urine Glucose (UA) (Negative) mg/dL Urine Ketones (Negative) Urine Blood (Negative) Urine Nitrite (Negative) Urine Bilirubin (Negative) Urine Urobilinogen (0.2) mg/dL Ur Leukocyte Esterase (Negative) U Hyaline Cast (Auto) (0-2) /LPF Urine Microscopic RBC (0-5) /HPF Urine Microscopic WBC (0-5) /HPF Ur Epithelial Cells (None Seen) /HPF Urine Bacteria (None Seen) /HPF Urine Culture Reflexed (NO) Salicylates (2-20) mg/dL Urine Opiates Level (NEGATIVE) Ur Methadone (NEGATIVE) Acetaminophen (10-30) ug/ml Urine Barbiturates (NEGATIVE) Ur Phencyclidine (PCP) (NEGATIVE) Urine Amphetamine (NEGATIVE) U Benzodiazepine Level (NEGATIVE) Urine Cocaine (NEGATIVE) Urine Marijuana (THC) (NEGATIVE) Ethyl Alcohol (0-10) mg/dL 03/15/23 03/15/23 03/15/23 Range/Units 02:37 04:32 08:00 WBC (4.0-10.5) x10^3/uL RBC (4.1-5.4) x10^6/uL Hgb (12.0-16.0) g/dL Hct (35-47) % MCV (78-100) fL MCH (26-32) pg MCHC (32-36) g/dL RDW (11.5-14.0) % Plt Count (150-450) x10^3/uL MPV (7.5-11.0) fL Segmented Neutrophils (36.0-66.0) % Band Neutrophils (0.0-2.0) % Lymphocytes (Manual) (24-44) % Monocytes (Manual) (0.0-12.0) % Platelet Estimate (NORMAL) RBC Morphology Puncture Site LEFT BRACHIAL LEFT BRACHIAL LEFT BRACHIAL pCO2 32 L 37 35 (35-45) mmHg pO2 146 H* 94 74 L (75-100) mmHg Base Excess -13.9 L -11.8 L -11.9 L (-2.0-2.0) O2 Saturation 96 95 94.1 (94-100) g/dF ABG pH 7.21 L* 7.22 L* 7.23 L* (7.35-7.45) ABG HCO3 12.8 L* 15 L* 14.7 L* (22-28) ABG O2 Sat (Measured) 97 95 94.1 L (95-100) % David Test NOT APPLICABLE NOT APPLICABLE NOT APPLICABLE A-a Gradient 42 88 32 a/A Ratio 0.78 0.52 0.70 Hemoglobin 12.0 12.0 11.7 Carboxyhemoglobin 0.5 0.0 0.0 (0.0-6.9) % THgb Methemoglobin 0.0 L 0.0 L 0.0 L (1.4-1.5) % Potassium 3.7 3.5 3.2 L (3.5-5.1) Temperature 37.0 C POC O2 Flow Rate 32 32 21 % Sodium (137-145) mmol/L Chloride (98-107) mmol/L Carbon Dioxide 14 L 16 L (22-30) mmol/L Anion Gap (5-15) MEQ/L BUN (7-17) mg/dL Creatinine (0.52-1.04) mg/dL Estimated GFR ML/MIN Glucose (74-106) mg/dL POC Glucometer (74 to 106) mg/dL Hemoglobin A1c (4.5-6.0) % Lactic Acid (0.4-2.0) Calcium (8.4-10.2) mg/dL Magnesium (1.6-2.3) mg/dL Total Bilirubin (0.2-1.3) mg/dL AST (14-36) U/L ALT (0-35) U/L Alkaline Phosphatase (38-126) U/L Serum Total Protein (6.3-8.2) g/dL Albumin (3.5-5.0) g/dL TSH 3rd Generation (0.47-4.68) mIU/L Urine Color (Yellow) Urine Appearance (Clear) Urine pH (4.6-8.0) Ur Specific [place] (1.005-1.030) Urine Protein (Negative) Urine Glucose (UA) (Negative) mg/dL Urine Ketones (Negative) Urine Blood (Negative) Urine Nitrite (Negative) Urine Bilirubin (Negative) Urine Urobilinogen (0.2) mg/dL Ur Leukocyte Esterase (Negative) U Hyaline Cast (Auto) (0-2) /LPF Urine Microscopic RBC (0-5) /HPF Urine Microscopic WBC (0-5) /HPF Ur Epithelial Cells (None Seen) /HPF Urine Bacteria (None Seen) /HPF Urine Culture Reflexed (NO) Salicylates (2-20) mg/dL Urine Opiates Level (NEGATIVE) Ur Methadone (NEGATIVE) Acetaminophen (10-30) ug/ml Urine Barbiturates (NEGATIVE) Ur Phencyclidine (PCP) (NEGATIVE) Urine Amphetamine (NEGATIVE) U Benzodiazepine Level (NEGATIVE) Urine Cocaine (NEGATIVE) Urine Marijuana (THC) (NEGATIVE) Ethyl Alcohol (0-10) mg/dL 03/15/23 03/15/23 03/15/23 Range/Units 09:15 09:15 09:15 WBC 13.0 H (4.0-10.5) x10^3/uL RBC 4.16 (4.1-5.4) x10^6/uL Hgb 13.2 (12.0-16.0) g/dL Hct 41.6 (35-47) % MCV 100.0 (78-100) fL MCH 31.7 (26-32) pg MCHC 31.7 L (32-36) g/dL RDW 13.0 (11.5-14.0) % Plt Count 403 (150-450) x10^3/uL MPV 9.0 (7.5-11.0) fL Segmented Neutrophils (36.0-66.0) % Band Neutrophils (0.0-2.0) % Lymphocytes (Manual) (24-44) % Monocytes (Manual) (0.0-12.0) % Platelet Estimate (NORMAL) RBC Morphology Puncture Site pCO2 (35-45) mmHg pO2 (75-100) mmHg Base Excess (-2.0-2.0) O2 Saturation (94-100) g/dF ABG pH (7.35-7.45) ABG HCO3 (22-28) ABG O2 Sat (Measured) (95-100) % David Test A-a Gradient a/A Ratio Hemoglobin Carboxyhemoglobin (0.0-6.9) % THgb Methemoglobin (1.4-1.5) % Potassium 3.6 (3.5-5.1) Temperature C POC O2 Flow Rate % Sodium 139 (137-145) mmol/L Chloride 115 H (98-107) mmol/L Carbon Dioxide 15 L* (22-30) mmol/L Anion Gap 13.0 (5-15) MEQ/L BUN 25 H (7-17) mg/dL Creatinine 0.85 (0.52-1.04) mg/dL Estimated GFR > 60.0 ML/MIN Glucose 156 H (74-106) mg/dL POC Glucometer (74 to 106) mg/dL Hemoglobin A1c (4.5-6.0) % Lactic Acid (0.4-2.0) Calcium 7.2 L (8.4-10.2) mg/dL Magnesium (1.6-2.3) mg/dL Total Bilirubin 0.20 (0.2-1.3) mg/dL AST 31 (14-36) U/L ALT 27 (0-35) U/L Alkaline Phosphatase 110 (38-126) U/L Serum Total Protein 5.3 L (6.3-8.2) g/dL Albumin 2.9 L (3.5-5.0) g/dL TSH 3rd Generation 0.524 (0.47-4.68) mIU/L Urine Color (Yellow) Urine Appearance (Clear) Urine pH (4.6-8.0) Ur Specific [place] (1.005-1.030) Urine Protein (Negative) Urine Glucose (UA) (Negative) mg/dL Urine Ketones (Negative) Urine Blood (Negative) Urine Nitrite (Negative) Urine Bilirubin (Negative) Urine Urobilinogen (0.2) mg/dL Ur Leukocyte Esterase (Negative) U Hyaline Cast (Auto) (0-2) /LPF Urine Microscopic RBC (0-5) /HPF Urine Microscopic WBC (0-5) /HPF Ur Epithelial Cells (None Seen) /HPF Urine Bacteria (None Seen) /HPF Urine Culture Reflexed (NO) Salicylates (2-20) mg/dL Urine Opiates Level (NEGATIVE) Ur Methadone (NEGATIVE) Acetaminophen (10-30) ug/ml Urine Barbiturates (NEGATIVE) Ur Phencyclidine (PCP) (NEGATIVE) Urine Amphetamine (NEGATIVE) U Benzodiazepine Level (NEGATIVE) Urine Cocaine (NEGATIVE) Urine Marijuana (THC) (NEGATIVE) Ethyl Alcohol (0-10) mg/dL 03/15/23 Range/Units 09:15 WBC (4.0-10.5) x10^3/uL RBC (4.1-5.4) x10^6/uL Hgb (12.0-16.0) g/dL Hct (35-47) % MCV (78-100) fL MCH (26-32) pg MCHC (32-36) g/dL RDW (11.5-14.0) % Plt Count (150-450) x10^3/uL MPV (7.5-11.0) fL Segmented Neutrophils (36.0-66.0) % Band Neutrophils (0.0-2.0) % Lymphocytes (Manual) (24-44) % Monocytes (Manual) (0.0-12.0) % Platelet Estimate (NORMAL) RBC Morphology Puncture Site pCO2 (35-45) mmHg pO2 (75-100) mmHg Base Excess (-2.0-2.0) O2 Saturation (94-100) g/dF ABG pH (7.35-7.45) ABG HCO3 (22-28) ABG O2 Sat (Measured) (95-100) % David Test A-a Gradient a/A Ratio Hemoglobin Carboxyhemoglobin (0.0-6.9) % THgb Methemoglobin (1.4-1.5) % Potassium (3.5-5.1) Temperature C POC O2 Flow Rate % Sodium (137-145) mmol/L Chloride (98-107) mmol/L Carbon Dioxide (22-30) mmol/L Anion Gap (5-15) MEQ/L BUN (7-17) mg/dL Creatinine (0.52-1.04) mg/dL Estimated GFR ML/MIN Glucose (74-106) mg/dL POC Glucometer (74 to 106) mg/dL Hemoglobin A1c 4.96 (4.5-6.0) % Lactic Acid (0.4-2.0) Calcium (8.4-10.2) mg/dL Magnesium (1.6-2.3) mg/dL Total Bilirubin (0.2-1.3) mg/dL AST (14-36) U/L ALT (0-35) U/L Alkaline Phosphatase (38-126) U/L Serum Total Protein (6.3-8.2) g/dL Albumin (3.5-5.0) g/dL TSH 3rd Generation (0.47-4.68) mIU/L Urine Color (Yellow) Urine Appearance (Clear) Urine pH (4.6-8.0) Ur Specific [place] (1.005-1.030) Urine Protein (Negative) Urine Glucose (UA) (Negative) mg/dL Urine Ketones (Negative) Urine Blood (Negative) Urine Nitrite (Negative) Urine Bilirubin (Negative) Urine Urobilinogen (0.2) mg/dL Ur Leukocyte Esterase (Negative) U Hyaline Cast (Auto) (0-2) /LPF Urine Microscopic RBC (0-5) /HPF Urine Microscopic WBC (0-5) /HPF Ur Epithelial Cells (None Seen) /HPF Urine Bacteria (None Seen) /HPF Urine Culture Reflexed (NO) Salicylates (2-20) mg/dL Urine Opiates Level (NEGATIVE) Ur Methadone (NEGATIVE) Acetaminophen (10-30) ug/ml Urine Barbiturates (NEGATIVE) Ur Phencyclidine (PCP) (NEGATIVE) Urine Amphetamine (NEGATIVE) U Benzodiazepine Level (NEGATIVE) Urine Cocaine (NEGATIVE) Urine Marijuana (THC) (NEGATIVE) Ethyl Alcohol (0-10) mg/dL Microbiology 03/15/23 08:46 Stool Culture Result 1 - Final Stool Not Reportable Stool Culture Result 2 - Final Not Reportable Stool Culture Result 3 - Final Not Reportable Stool Culture Result 4 - Final Not Reportable Stool Culture Organism Suscept - Final Not Reportable Campylobacter Result 1 - Final Not Reportable Campylobacter Result 2 - Final Not Reportable Campylobactor Result 3 - Final Not Reportable Campylobacter Result 4 - Final Not Reportable Campylobactor Susceptibility - Final Not Reportable 03/14/23 23:07 Urine Culture - Preliminary Catherized NO GROWTH TO DATE Accuchecks Date 03/15/23 Time 23:49 - Radiology Impressions Radiology Exams & Impressions: Radiology Procedures Category Date Time Status CHEST 1 VIEW (PORTABLE) Routine Exams 03/15/23 08:07 Completed HEAD WITHOUT CONTRAST [CT] Stat Exams 03/14/23 23:00 Completed - Other Procedures and Tests Respiratory Therapy 03/15/23 05:32 Oxygen Nasal Cannula 2 lpm 03/15/23 07:08 Respiratory Therapy Assessment DAILY 03/16/23 05:00 EKG ROUTINE Assessment/Plan (1) Overdose by ingestion Current Visit: Yes Status: Acute Assessment & Plan: - Possible zyprexa, hydrocodone, voltaren, and gabapentin - poison control called, recs include benzos for possible seizures and narcan PRN - Pt has had no active seizures. Due to lethargy will hold benzos for now. - seizure precautions - denies suicidal or homicidal ideation - Psych consult- recommended IP when pt is stable. May need emergency detained Code(s): T50.901A - POISONING BY UNSP DRUG/MEDS/BIOL SUBST, ACCIDENTAL, INIT (2) Metabolic acidosis Current Visit: Yes Status: Acute Assessment & Plan: - 2:2 diarrhea, BARBIE, OD - bicarb gtt started Code(s): E87.20 - ACIDOSIS, UNSPECIFIED (3) UTI (urinary tract infection) Current Visit: Yes Status: Acute Assessment & Plan: - rocephin - UC pending - pt has 1 kidney - IV fluids Code(s): N39.0 - URINARY TRACT INFECTION, SITE NOT SPECIFIED (4) Methamphetamine abuse Current Visit: Yes Status: Acute Assessment & Plan: - recent use admitted by pt - advised cessation Code(s): F15.10 - OTHER STIMULANT ABUSE, UNCOMPLICATED (5) Diarrhea Current Visit: Yes Status: Acute Assessment & Plan: - Stool sent for C-diff and culture Code(s): R19.7 - DIARRHEA, UNSPECIFIED (6) Bipolar 1 disorder Current Visit: Yes Status: Acute Assessment & Plan: - Zyprexa held for now due to possible OD - Psych consult Code(s): F31.9 - BIPOLAR DISORDER, UNSPECIFIED (7) BARBIE (acute kidney injury) Current Visit: Yes Status: Acute Assessment & Plan: -Resolved 03/15/23 with IVF Code(s): N17.9 - ACUTE KIDNEY FAILURE, UNSPECIFIED (8) Hypomagnesemia Current Visit: Yes Status: Acute Assessment & Plan: - Mg+ 2.7 replaced - will recheck at noon Code(s): E83.42 - HYPOMAGNESEMIA (9) Hypocalcemia Current Visit: Yes Status: Acute Assessment & Plan: - Calcium 7.0 at 02:20 and 7.2 at 9:15- replaced - will recheck at noon Code(s): E83.51 - HYPOCALCEMIA (10) Abdominal pain Current Visit: No Status: Acute Qualifiers: Assessment & Plan: - 2:2 diarrhea- stools studies sent - KUB- pending - Continue bentyl Code(s): R10.9 - UNSPECIFIED ABDOMINAL PAIN (11) Altered mental status Current Visit: No Status: Resolved Assessment & Plan: - Found down at home - pt easily arousable today and answering questions appropriately. - EKG reviewed - tele - neuro checks - seizure precautions - CT brain negative - most likely r/t UTI/ OD/ BARBIE VTE: lovenox PPI: pantoprazole Code status: Full Next of Kin: Code(s): R41.82 - ALTERED MENTAL STATUS, UNSPECIFIED
[2023-03-15] MEDS: BENTYL 20 MG PO SCH ×3 (11:29→21:04)
[2023-03-15 11:56] LABS: 027 TOX PROD PRESUMPTIVE NEGATIVE (NEGATIVE); TOXIGENIC C. DIFF ORG NEGATIVE (NEGATIVE)
[2023-03-15] MEDS: PROTONIX 40 MG IV IV SCH (12:17)
--- NOTE | 2023-03-15 12:33 | XRAY ---
CLINICAL HISTORY:diarrhea and abd pain COMPARISON:None TECHNIQUE:X-ray of the abdomen performed (multiple AP projections in supine). FINDINGS: No evidence of small bowel obstruction. The large bowel is prominent and air-filled with no evidence of obstruction. Post-cholecystectomy clips are noted. Thin tube is noted in pelvis likely wheeler catheter. No calculus seen within the renal areas, in line of both ureters or urinary bladder. Bilateral hip joints appears unremarkable. IMPRESSION: No evidence of small or Large bowel obstruction Noted. No evidence of pneumoperitoneum noted. No radio-opaque calcular shadows. Electronically Signed by: Daniel Nj MD. (03/15/2023 11:31:44 COLLECTIONS OFFICER)
[2023-03-15 13:25] LABS: Calcium 7.3 mg/dL (8.4-10.2)
[2023-03-15] MEDS: ZOFRAN ODT 4 MG PO PRN (17:10)
[2023-03-15] MEDS: Zofran 4 MG/2 ML VIAL IV PRN (23:11)
[2023-03-16] MEDS: TYLENOL 325 MG PO PRN ×5 (05:26→22:56)
[2023-03-16] MEDS: Zofran 4 MG/2 ML VIAL IV PRN ×2 (05:26→22:56)
[2023-03-16] MEDS: Sodium Bicarbonate 50 MEQ/50 ML VIAL*** 100 MEQ in Dextrose 5%/Water IV Soln. 1000 ML 1... IV SCH (06:27)
[2023-03-16 07:32] LABS: Hematocrit 35.1 % (35-47); Hemoglobin 11.2 g/dL (12.0-16.0); Mean Cell Volume 101.2 fL (78-100); Mean Corpuscular Hemoglobin 32.3 pg (26-32); Mean Corpuscular Hgb Concent. 31.9 g/dL (32-36); Mean Platelet Volume 10.1 fL (7.5-11.0); Platelet Count 299 x10^3/uL (150-450); Red Blood Count 3.47 x10^6/uL (4.1-5.4); Red Cell Distribution Width 13.5 % (11.5-14.0)
[2023-03-16 07:55] LABS: ALBUMIN 2.7 g/dL (3.5-5.0); ALKALINE PHOSPHATASE 67 U/L (38-126); ANION GAP 8.4 MEQ/L (5-15); BLOOD UREA NITROGEN 12 mg/dL (7-17); CHLORIDE 115 mmol/L (98-107); Calcium 7.7 mg/dL (8.4-10.2); Carbon Dioxide 17 mmol/L (22-30); Creatinine 1 0.46 mg/dL (0.52-1.04); EST GLOMERULAR FILTRATION RATE > 60.0 ML/MIN; Glucose 100 mg/dL (74-106); NT PRO BNPII 156 pg/mL (<300); SGOT/AST 37 U/L (14-36); SGPT/ALT 23 U/L (0-35); SODIUM 137 mmol/L (137-145); Total Protein 5.5 g/dL (6.3-8.2)
[2023-03-16] MEDS: ENOXAPARIN SODIUM SQ SCH (08:14)
[2023-03-16] MEDS: PROTONIX 40 MG IV IV SCH (08:14)
[2023-03-16] MEDS: BENTYL 20 MG PO SCH ×4 (08:14→22:56)
[2023-03-16] MEDS ORDERED: Sodium Chloride 0.9% 1000 ML 1,000 ML IV SCH (08:30)
[2023-03-16 10:04] LABS: Eosinophil 2 % (0.00-3.0); Lymphocytes 21 % (24-44); Monocyte 1 % (0.0-12.0); Neutrophils 76 % (36.0-66.0); Total Cells Counted 100
[2023-03-16 10:05] LABS: Platelet Estimate NORMAL (NORMAL)
[2023-03-16] MEDS: ZOFRAN ODT 4 MG PO PRN ×2 (11:16→17:02)
[2023-03-16] MEDS: Compazine 10 MG/2 ML IV PRN ×2 (12:13→18:09)
[2023-03-16] MEDS ORDERED: Calcium Gluconate 10% 1000 MG 1,000 MG in Sodium Chloride 0.9% 100 ML IV ONE (12:14)
[2023-03-16] MEDS: Pepcid 20 MG PO PRN (12:14)
--- NOTE | 2023-03-16 12:20 | PCM.NOTE ---
Date and Time: 03/16/23 1215 Subjective Assessment: 03/15/23 is a 48 year old female with PMH of migranes, fibromyalgia, bipolar, born with 1 kidney. She is a patient of Dr. Zuluaga. She was brought into our emergency department by paramedics escorted by law enforcement secondary to possible overdose. Patient has altered mental status but was arousable from a lethargic state and answered questions. She denies being suicidal or homicidal. However, her thinks that she possibly was attempting to overdose. Patient has a history of bipolar disorder with manic episodes. She has required frequent hospitalizations for mental illness issues. Patient is on olanzapine and she took an unknown amount of this medication. A pill bottle was brought in that was filled on 08/08 for 15 tablets. There were 4 tablets missing. A pill bottle of magnesium oxide 400 mg was brought into the hospital that was filled in September 2022 and there were 28 out of 30 tablets still present in the bottle. We did obtain independent, additional history from the patient's and there was significant number of hydrocodone, Voltaren tablets and gabapentin tablets missing from prescriptions that were filled within the last week or 2. It is unclear how many of these medication tablets were taken. In the emergency department respiratory rate was between 14 and 17, afebrile,blood pressure was 114/78 heart rate was in the 70s to 80s. Patient has no specific complaints. ER MD spoke with poison classification control clerk Jozef, upon arrival of this patient to the emergency department. It was recommended she be prescribed narcan PRN and a benzo if she has a seizure. Upon looking further at her fill hx online the only med she appears to have filled recently was zyprexa. Her UDS was positive for amphetamines and she does admit to using recently but unable to recall when. Today she has diarrhea and this was sent for further eval. Bed set up for seizure precautions, she has not had a seizure since admission. Since she is so sleepy I will not add a benzo for now. Narcan was added PRN. She denies suicidal or homicidal ideation. She explained it depends on the day if she is getting along with her and would not elaborate.Will consult psych for further eval. BARBIE has resolved since IV fluids gave in ER. Bicarb gtt started. Calcium and magnesium replaced. Pt states she overall does not feel well and is tired. She is currently in the ICU. She denies Cp, SOB, N/V. She admits to abd cramping r/t diarrhea. 03/16/23 Pt [address] bed[address] Pt's came to visit today and was not very kind and verbally abusive to her. She is tearful. She denies suicidal or homicidal ideation. She is no longer having diarrhea and stools are solid. Urine culture was negative and antibiotics were stopped. She continues to have some abd. cramping and nausea. Compazine and pepcid added. Continue bicarb gtt- Co2 17. She dnies CP, SOB, V/D. - Review of Systems Constitutional: No Fever, No Chills Eyes: No Symptoms Ears, Nose, & Throat: No Symptoms Respiratory: No Cough, No Short Of Breath Cardiac: No Chest Pain, No Edema, No Syncope Abdominal/Gastrointestinal: Abdominal Pain, Nausea, Appetite Changes, No Vomiting, No Diarrhea Genitourinary Symptoms: No Dysuria Musculoskeletal: No Back Pain, No Neck Pain Skin: No Rash Neurological: No Dizziness, No Focal Weakness, No Sensory Changes Psychological: No Symptoms, Drug Abuse, Emotional Lability Endocrine: No Symptoms Hematologic/Lymphatic: No Symptoms Immunological/Allergic: No Symptoms Objective Exam General Appearance: no apparent distress, mild distress, alert Neurologic Exam: alert, oriented x 3, cooperative, normal mood/affect, nml cerebellar function, sensation nml, other (tearful), No motor deficits Skin Exam: normal color, warm, dry Eye Exam: PERRL, EOMI, eyes nml inspection Ears, Nose, Throat Exam: normal ENT inspection, pharynx normal, moist mucous membranes Neck Exam: normal inspection, non-tender, supple, full range of motion Respiratory Exam: normal breath sounds, lungs clear, No respiratory distress Cardiovascular Exam: regular rate/rhythm, normal heart sounds Gastrointestinal/Abdomen Exam: soft, tenderness (generalized), No mass Extremity Exam: normal inspection, normal range of motion Back Exam: normal inspection, normal range of motion, No CVA tenderness, No vertebral tenderness Pelvic Exam: deferred Rectal Exam: deferred OBJECTIVE DATA Vital Signs: Vital Signs - 24 hr Temp Pulse Resp BP Pulse Ox 03/16/23 11:57 78 03/16/23 11:21 98.7 F 84 19 113/71 98 10/29/23 07:45 71 03/16/23 07:44 97.7 F 77 16 139/85 99 03/16/23 07:43 78 19 99 03/16/23 03:57 98.6 F 86 16 128/99 94 L 03/15/23 23:51 77 03/15/23 23:48 98.6 F 77 16 122/81 96 03/15/23 19:52 98.6 F 72 18 133/67 95 03/15/23 19:02 72 18 95 03/15/23 15:41 98.6 F 76 18 117/71 94 L 03/15/23 13:00 76 18 128/76 94 L Pain Assessment - Last Documented Pain Intensity 10 Pain Scale Used 0-10 Pain Scale Intake and Output: Intake & Output 03/14/23 03/15/23 03/16/23 03/17/23 11:59 11:59 11:59 11:59 Intake Total 1480 3230 Output Total 800 2300 Balance 680 930 Weight 68.6 kg Lab Results: Lab Results-Last 24 Hours 03/15/23 03/15/23 03/16/23 Range/Units 13:00 21:57 07:25 WBC 10.0 (4.0-10.5) x10^3/uL RBC 3.47 L (4.1-5.4) x10^6/uL Hgb 11.2 L (12.0-16.0) g/dL Hct 35.1 (35-47) % MCV 101.2 H (78-100) fL MCH 32.3 H (26-32) pg MCHC 31.9 L (32-36) g/dL RDW 13.5 (11.5-14.0) % Plt Count 299 (150-450) x10^3/uL MPV 10.1 (7.5-11.0) fL Segmented Neutrophils 76 H (36.0-66.0) % Lymphocytes (Manual) 21 L (24-44) % Monocytes (Manual) 1 (0.0-12.0) % Eosinophils (Manual) 2 (0.00-3.0) % Platelet Estimate NORMAL (NORMAL) RBC Morphology NORMAL Sodium (137-145) mmol/L Potassium (3.5-5.1) mmol/L Chloride (98-107) mmol/L Carbon Dioxide (22-30) mmol/L Anion Gap (5-15) MEQ/L BUN (7-17) mg/dL Creatinine (0.52-1.04) mg/dL Estimated GFR ML/MIN Glucose (74-106) mg/dL Calcium 7.3 L 7.5 L (8.4-10.2) mg/dL Magnesium 2.0 (1.6-2.3) mg/dL Total Bilirubin (0.2-1.3) mg/dL AST (14-36) U/L ALT (0-35) U/L Alkaline Phosphatase (38-126) U/L NT-Pro-B Natriuret Pep (<300) pg/mL Serum Total Protein (6.3-8.2) g/dL Albumin (3.5-5.0) g/dL 03/16/23 Range/Units 07:25 WBC (4.0-10.5) x10^3/uL RBC (4.1-5.4) x10^6/uL Hgb (12.0-16.0) g/dL Hct (35-47) % MCV (78-100) fL MCH (26-32) pg MCHC (32-36) g/dL RDW (11.5-14.0) % Plt Count (150-450) x10^3/uL MPV (7.5-11.0) fL Segmented Neutrophils (36.0-66.0) % Lymphocytes (Manual) (24-44) % Monocytes (Manual) (0.0-12.0) % Eosinophils (Manual) (0.00-3.0) % Platelet Estimate (NORMAL) RBC Morphology Sodium 137 (137-145) mmol/L Potassium 4.0 (3.5-5.1) mmol/L Chloride 115 H (98-107) mmol/L Carbon Dioxide 17 L (22-30) mmol/L Anion Gap 8.4 (5-15) MEQ/L BUN 12 (7-17) mg/dL Creatinine 0.46 L (0.52-1.04) mg/dL Estimated GFR > 60.0 ML/MIN Glucose 100 (74-106) mg/dL Calcium 7.7 L (8.4-10.2) mg/dL Magnesium (1.6-2.3) mg/dL Total Bilirubin 0.80 (0.2-1.3) mg/dL AST 37 H (14-36) U/L ALT 23 (0-35) U/L Alkaline Phosphatase 67 (38-126) U/L NT-Pro-B Natriuret Pep 156 (<300) pg/mL Serum Total Protein 5.5 L (6.3-8.2) g/dL Albumin 2.7 L (3.5-5.0) g/dL Radiology Exams: Radiology Procedures Category Date Time Status CHEST 1 VIEW (PORTABLE) Routine Exams 03/15/23 08:07 Completed HEAD WITHOUT CONTRAST [CT] Stat Exams 03/14/23 23:00 Completed KUB Urgent Exams 03/15/23 11:06 Completed Assessment/Plan (1) Overdose by ingestion Current Visit: Yes Status: Acute Code(s): T50.901A - POISONING BY UNSP DRUG/MEDS/BIOL SUBST, ACCIDENTAL, INIT (2) Metabolic acidosis Current Visit: Yes Status: Acute Code(s): E87.20 - ACIDOSIS, UNSPECIFIED (3) UTI (urinary tract infection) Current Visit: Yes Status: Acute Code(s): N39.0 - URINARY TRACT INFECTION, SITE NOT SPECIFIED (4) Methamphetamine abuse Current Visit: Yes Status: Acute Code(s): F15.10 - OTHER STIMULANT ABUSE, UNCOMPLICATED (5) Diarrhea Current Visit: Yes Status: Acute Code(s): R19.7 - DIARRHEA, UNSPECIFIED (6) Bipolar 1 disorder Current Visit: Yes Status: Acute Code(s): F31.9 - BIPOLAR DISORDER, UNSPECIFIED (7) BARBIE (acute kidney injury) Current Visit: Yes Status: Acute Code(s): N17.9 - ACUTE KIDNEY FAILURE, UNSPECIFIED (8) Hypomagnesemia Current Visit: Yes Status: Acute Code(s): E83.42 - HYPOMAGNESEMIA (9) Hypocalcemia Current Visit: Yes Status: Acute Code(s): E83.51 - HYPOCALCEMIA (10) Abdominal pain Current Visit: No Status: Acute Qualifiers: Code(s): R10.9 - UNSPECIFIED ABDOMINAL PAIN (11) Altered mental status Current Visit: No Status: Resolved Assessment & Plan: (1) Overdose by ingestion Current Visit: Yes Status: Acute Assessment & Plan: - Possible zyprexa, hydrocodone, voltaren, and gabapentin - poison control called, recs include benzos for possible seizures and narcan PRN - Pt has had no active seizures. Due to lethargy will hold benzos for now. - seizure precautions - denies suicidal or homicidal ideation - Psych consult- recommended IP when pt is stable. May need emergency detained Code(s): T50.901A - POISONING BY UNSP DRUG/MEDS/BIOL SUBST, ACCIDENTAL, INIT (2) Metabolic acidosis Current Visit: Yes Status: Acute Assessment & Plan: - 2:2 diarrhea, BARBIE, OD - bicarb gtt started 03/16 - labs improving- trend - continue bicarb gtt Code(s): E87.20 - ACIDOSIS, UNSPECIFIED (3) UTI (urinary tract infection) Current Visit: Yes Status: Acute Assessment & Plan: - rocephin - UC pending - pt has 1 kidney - IV fluids 03/16 - UC negative- stopped antibiotics Code(s): N39.0 - URINARY TRACT INFECTION, SITE NOT SPECIFIED (4) Methamphetamine abuse Current Visit: Yes Status: Acute Assessment & Plan: - recent use admitted by pt - advised cessation Code(s): F15.10 - OTHER STIMULANT ABUSE, UNCOMPLICATED (5) Diarrhea Current Visit: Yes Status: Acute Assessment & Plan: - Stool sent for C-diff and culture 03/16 - C-diff negative - Stools solid- resolved Code(s): R19.7 - DIARRHEA, UNSPECIFIED (6) Bipolar 1 disorder Current Visit: Yes Status: Acute Assessment & Plan: - Zyprexa held for now due to possible OD - Psych consult Code(s): F31.9 - BIPOLAR DISORDER, UNSPECIFIED (7) BARBIE (acute kidney injury) Current Visit: Yes Status: Acute Assessment & Plan: -Resolved 03/15/23 with IVF 03/16 - worsened overnight as pt had N/V- IVF Code(s): N17.9 - ACUTE KIDNEY FAILURE, UNSPECIFIED (8) Hypomagnesemia Current Visit: Yes Status: Acute Assessment & Plan: - Mg+ 2.7 replaced - will recheck at noon- resolved Code(s): E83.42 - HYPOMAGNESEMIA (9) Hypocalcemia Current Visit: Yes Status: Acute Assessment & Plan: - Calcium 7.0 at 02:20 and 7.2 at 9:15- replaced - will recheck at noon 03/16 - Ca+ 7.7 replaced Code(s): E83.51 - HYPOCALCEMIA (10) Abdominal pain Current Visit: No Status: Acute Qualifiers: Assessment & Plan: - 2:2 diarrhea- stools studies sent - KUB- reviewed - negative - Continue bentyl 03/16 - pepcid and compazine added Code(s): R10.9 - UNSPECIFIED ABDOMINAL PAIN (11) Altered mental status Current Visit: No Status: Resolved Assessment & Plan: - Found down at home - pt easily arousable today and answering questions appropriately. - EKG reviewed - tele - neuro checks - seizure precautions - CT brain negative - most likely r/t UTI/ OD/ BARBIE 03/16 - resolved, awake and alert VTE: lovenox PPI: pantoprazole Code status: Full Next of Kin: Code(s): R41.82 - ALTERED MENTAL STATUS, UNSPECIFIED Code(s): R41.82 - ALTERED MENTAL STATUS, UNSPECIFIED
[2023-03-17] MEDS: Compazine 10 MG/2 ML IV PRN ×4 (02:05→21:45)
[2023-03-17] MEDS: ZOFRAN ODT 4 MG PO PRN (05:02)
[2023-03-17] MEDS: Sodium Bicarbonate 50 MEQ/50 ML VIAL*** 100 MEQ in Dextrose 5%/Water IV Soln. 1000 ML 1... IV SCH (05:02)
--- NOTE | 2023-03-17 05:49 | PCM.NOTE ---
Date and Time: 03/17/23 0547 Subjective Assessment: HPI: is a 48 year old female with PMH of migranes, fibromyalgia, bipolar, born with 1 kidney. She is a patient of Dr. Zuluaga. She was brought into our emergency department by paramedics escorted by law enforcement secondary to possible overdose. Patient has altered mental status but was arousable from a lethargic state and answered questions. She denies being suicidal or homicidal. However, her thinks that she possibly was attempting to overdose. Patient has a history of bipolar disorder with manic episodes. She has required frequent hospitalizations for mental illness issues. Patient is on olanzapine and she took an unknown amount of this medication. A pill bottle was brought in that was filled on 08/08 for 15 tablets. There were 4 tablets missing. A pill bottle of magnesium oxide 400 mg was brought into the hospital that was filled in September 2022 and there were 28 out of 30 tablets still present in the bottle. We did obtain independent, additional history from the patient's and there was significant number of hydrocodone, Voltaren tablets and gabapentin tablets missing from prescriptions that were filled within the last week or 2. It is unclear how many of these medication tablets were taken. In the emergency department respiratory rate was between 14 and 17, afebrile,blood pressure was 114/78 heart rate was in the 70s to 80s. Patient has no specific complaints. ER MD spoke with poison control tower radio operator Jozef, upon arrival of this patient to the emergency department. It was recommended she be prescribed narcan PRN and a benzo if she has a seizure. Upon looking further at her fill hx online the only med she appears to have filled recently was zyprexa. Her UDS was positive for amphetamines and she does admit to using recently but unable to recall when. Today she has diarrhea and this was sent for further eval. Bed set up for seizure precautions, she has not had a seizure since admission. Since she is so sleepy I will not add a benzo for now. Narcan was added PRN. She denies suicidal or homicidal ideation. She explained it depends on the day if she is getting along with her and would not elaborate.Will consult psych for further eval. BARBIE has resolved since IV fluids gave in ER. Bicarb gtt started. Calcium and magnesium replaced. Pt states she overall does not feel well and is tired. She is currently in the ICU. She denies Cp, SOB, N/V. She admits to abd cramping r/t diarrhea. 03/17/23: Met and examined patient bedside. Endorses nausea (no vomiting), abdominal pain, dysuria, and diarrhea. She also states her hands hurt. Discussed overdose, patient states that she did not do this intentionally. Denies suicidal/homicidal ideation. Psych has recommended IP treatment when medically cleared. May have to ED patient at that time if not agreeable. Denies fever,cough, sob, cp, or dizziness. - Review of Systems Constitutional: No Symptoms Eyes: No Symptoms Ears, Nose, & Throat: No Symptoms Respiratory: Wheezing Cardiac: No Symptoms Abdominal/Gastrointestinal: Abdominal Pain, Nausea Genitourinary Symptoms: Dysuria Musculoskeletal: Joint Pain (bilateral thumbs) Skin: No Symptoms Neurological: No Symptoms Psychological: No Symptoms Endocrine: No Symptoms Hematologic/Lymphatic: No Symptoms Immunological/Allergic: No Symptoms Objective Exam General Appearance: no apparent distress Neurologic Exam: alert, oriented x 3, cooperative Skin Exam: normal color Eye Exam: PERRL Ears, Nose, Throat Exam: normal ENT inspection Neck Exam: normal inspection Respiratory Exam: wheezing (exp) Cardiovascular Exam: regular rate/rhythm, normal heart sounds Gastrointestinal/Abdomen Exam: soft, normal bowel sounds, tenderness Extremity Exam: normal inspection Back Exam: normal inspection Pelvic Exam: deferred Rectal Exam: deferred OBJECTIVE DATA Vital Signs: Vital Signs - 24 hr Temp Pulse Resp BP Pulse Ox 03/17/23 04:45 98.6 F 73 17 138/95 96 03/17/23 04:00 73 03/17/23 00:01 77 03/17/23 00:00 98 F 84 20 133/90 97 03/16/23 19:42 98.4 F 77 16 128/86 98 03/16/23 19:38 85 18 98 03/16/23 16:00 97.9 F 87 18 134/88 94 L 03/16/23 11:57 78 03/16/23 11:21 98.7 F 84 19 113/71 98 03/16/23 07:45 71 03/16/23 07:44 97.7 F 77 16 139/85 99 03/16/23 07:43 78 19 99 Pain Assessment - Last Documented Pain Intensity 0 Pain Scale Used 0-10 Pain Scale Intake and Output: Intake & Output 03/14/23 03/15/23 03/16/23 03/17/23 11:59 11:59 11:59 11:59 Intake Total 1480 3230 1320 Output Total 800 2300 1800 Balance 680 930 -480 Weight 68.6 kg Lab Results: Lab Results-Last 24 Hours 03/16/23 03/16/23 Range/Units 07:25 07:25 WBC 10.0 (4.0-10.5) x10^3/uL RBC 3.47 L (4.1-5.4) x10^6/uL Hgb 11.2 L (12.0-16.0) g/dL Hct 35.1 (35-47) % MCV 101.2 H (78-100) fL MCH 32.3 H (26-32) pg MCHC 31.9 L (32-36) g/dL RDW 13.5 (11.5-14.0) % Plt Count 299 (150-450) x10^3/uL MPV 10.1 (7.5-11.0) fL Segmented Neutrophils 76 H (36.0-66.0) % Lymphocytes (Manual) 21 L (24-44) % Monocytes (Manual) 1 (0.0-12.0) % Eosinophils (Manual) 2 (0.00-3.0) % Platelet Estimate NORMAL (NORMAL) RBC Morphology NORMAL Sodium 137 (137-145) mmol/L Potassium 4.0 (3.5-5.1) mmol/L Chloride 115 H (98-107) mmol/L Carbon Dioxide 17 L (22-30) mmol/L Anion Gap 8.4 (5-15) MEQ/L BUN 12 (7-17) mg/dL Creatinine 0.46 L (0.52-1.04) mg/dL Estimated GFR > 60.0 ML/MIN Glucose 100 (74-106) mg/dL Calcium 7.7 L (8.4-10.2) mg/dL Total Bilirubin 0.80 (0.2-1.3) mg/dL AST 37 H (14-36) U/L ALT 23 (0-35) U/L Alkaline Phosphatase 67 (38-126) U/L NT-Pro-B Natriuret Pep 156 (<300) pg/mL Serum Total Protein 5.5 L (6.3-8.2) g/dL Albumin 2.7 L (3.5-5.0) g/dL Radiology Exams: Radiology Procedures Category Date Time Status CHEST 1 VIEW (PORTABLE) Routine Exams 03/15/23 08:07 Completed KUB Urgent Exams 03/15/23 11:06 Completed Assessment/Plan (1) Overdose by ingestion Current Visit: Yes Status: Acute Assessment & Plan: (1) Overdose by ingestion Current Visit: Yes Status: Acute Assessment & Plan: - Possible zyprexa, hydrocodone, voltaren, and gabapentin - poison control called, recs include benzos for possible seizures and narcan PRN - Pt has had no active seizures. Due to lethargy will hold benzos for now. - seizure precautions - denies suicidal or homicidal ideation - Psych consult- recommended IP when pt is stable. May need emergency detained Code(s): T50.901A - POISONING BY UNSP DRUG/MEDS/BIOL SUBST, ACCIDENTAL, INIT (2) Metabolic acidosis Current Visit: Yes Status: Acute Assessment & Plan: - 2:2 diarrhea, BARBIE, OD - bicarb gtt started 03/16 - labs improving- trend - continue bicarb gtt 03/17: -resolved, bicarb d/cd Code(s): E87.20 - ACIDOSIS, UNSPECIFIED #hypokalemia -Potassium reviewed, at 2.8, will replenish (3) UTI (urinary tract infection) Current Visit: Yes Status: Acute Assessment & Plan: - rocephin - UC pending - pt has 1 kidney - IV fluids 03/16 - UC negative- stopped antibiotics Code(s): N39.0 - URINARY TRACT INFECTION, SITE NOT SPECIFIED (4) Methamphetamine abuse Current Visit: Yes Status: Acute Assessment & Plan: - recent use admitted by pt - advised cessation Code(s): F15.10 - OTHER STIMULANT ABUSE, UNCOMPLICATED (5) Diarrhea Current Visit: Yes Status: Acute Assessment & Plan: - Stool sent for C-diff and culture 03/16 - C-diff negative - Stools solid- resolved 03/17: -patient states she had several stools overnight Code(s): R19.7 - DIARRHEA, UNSPECIFIED (6) Bipolar 1 disorder Current Visit: Yes Status: Acute Assessment & Plan: - Zyprexa held for now due to possible OD - Psych consult Code(s): F31.9 - BIPOLAR DISORDER, UNSPECIFIED (7) BARBIE (acute kidney injury) Current Visit: Yes Status: Acute Assessment & Plan: -Resolved 03/15/23 with IVF 03/16 - worsened overnight as pt had N/V- IVF 03/17: -resolved Code(s): N17.9 - ACUTE KIDNEY FAILURE, UNSPECIFIED (8) Hypomagnesemia Current Visit: Yes Status: Acute Assessment & Plan: - Mg+ 2.7 replaced - will recheck at noon- resolved Code(s): E83.42 - HYPOMAGNESEMIA (9) Hypocalcemia Current Visit: Yes Status: Acute Assessment & Plan: - Calcium 7.0 at 02:20 and 7.2 at 9:15- replaced - will recheck at noon 03/16 - Ca+ 7.7 replaced 03/17: -In the setting of hypoalbuminemia, corrected calcium 8.3, will continue to monitor Code(s): E83.51 - HYPOCALCEMIA (10) Abdominal pain Current Visit: No Status: Acute Qualifiers: Assessment & Plan: - 2:2 diarrhea- stools studies sent - KUB- reviewed - negative - Continue bentyl 03/16 - pepcid and compazine added Code(s): R10.9 - UNSPECIFIED ABDOMINAL PAIN (11) Altered mental status Current Visit: No Status: Resolved Assessment & Plan: - Found down at home - pt easily arousable today and answering questions appropriately. - EKG reviewed - tele - neuro checks - seizure precautions - CT brain negative - most likely r/t UTI/ OD/ BARBIE 03/16 - resolved, awake and alert VTE: lovenox PPI: pantoprazole Code status: Full Next of Kin: Code(s): T50.901A - POISONING BY UNSP DRUG/MEDS/BIOL SUBST, ACCIDENTAL, INIT (2) BARBIE (acute kidney injury) Current Visit: Yes Status: Acute Code(s): N17.9 - ACUTE KIDNEY FAILURE, UNSPECIFIED (3) Bipolar 1 disorder Current Visit: Yes Status: Acute Code(s): F31.9 - BIPOLAR DISORDER, UNSPECIFIED (4) Diarrhea Current Visit: Yes Status: Acute Code(s): R19.7 - DIARRHEA, UNSPECIFIED (5) Hypocalcemia Current Visit: Yes Status: Acute Code(s): E83.51 - HYPOCALCEMIA (6) Hypomagnesemia Current Visit: Yes Status: Acute Code(s): E83.42 - HYPOMAGNESEMIA (7) Metabolic acidosis Current Visit: Yes Status: Acute Code(s): E87.20 - ACIDOSIS, UNSPECIFIED (8) Methamphetamine abuse Current Visit: Yes Status: Acute Code(s): F15.10 - OTHER STIMULANT ABUSE, UNCOMPLICATED (9) UTI (urinary tract infection) Current Visit: Yes Status: Acute Code(s): N39.0 - URINARY TRACT INFECTION, SITE NOT SPECIFIED (10) Abdominal pain Current Visit: No Status: Acute Qualifiers: Code(s): R10.9 - UNSPECIFIED ABDOMINAL PAIN (11) Altered mental status Current Visit: No Status: Resolved Code(s): R41.82 - ALTERED MENTAL STATUS, UNSPECIFIED (12) Hypokalemia Current Visit: Yes Status: Acute Code(s): E87.6 - HYPOKALEMIA
[2023-03-17] MEDS: TYLENOL 325 MG PO PRN ×4 (08:36→21:44)
[2023-03-17 08:38] LABS: Absolute Neutrophil Ct (ANC) 6.95 x10^3/uL (1.4-6.9); BASOPHIL % 0.1 % (0.0-0.4); Basophil (Absolute #) 0.01 x10^3/uL (0-0.4); Eosinophil % 2.6 % (0.00-5.0); Eosinophil (Absolute #) 0.24 x10^3/uL (0-0.5); Hematocrit 35.6 % (35-47); Hemoglobin 12.1 g/dL (12.0-16.0); IMMATURE GRAN # 0.06 x10^3u/L (0.00-0.03); IMMATURE GRAN % 0.7 % (0.00-0.4); Lymphocyte (Absolute #) 1.37 x10^3/uL (1.0-4.6); Lymphocytes % 15.1 % (24.0-44.0); Mean Cell Volume 94.7 fL (78-100); Mean Corpuscular Hemoglobin 32.2 pg (26-32); Mean Platelet Volume 9.2 fL (7.5-11.0); Monocyte (Absolute #) 0.43 x10^3/uL (0.0-1.3); Monocytes % 4.7 % (0.0-12.0); Neutrophil % 76.8 % (36.0-66.0); Platelet Count 363 x10^3/uL (150-450); Red Blood Count 3.76 x10^6/uL (4.1-5.4); Red Cell Distribution Width 13.1 % (11.5-14.0); White Blood Count 9.1 x10^3/uL (4.0-10.5)
[2023-03-17 08:47] LABS: ALKALINE PHOSPHATASE 100 U/L (38-126); ANION GAP 5.2 MEQ/L (5-15); BLOOD UREA NITROGEN 8 mg/dL (7-17); CHLORIDE 112 mmol/L (98-107); Calcium 7.9 mg/dL (8.4-10.2); Carbon Dioxide 26 mmol/L (22-30); Creatinine 1 0.52 mg/dL (0.52-1.04); EST GLOMERULAR FILTRATION RATE > 60.0 ML/MIN; Glucose 99 mg/dL (74-106); SGOT/AST 21 U/L (14-36); SGPT/ALT 21 U/L (0-35); SODIUM 141 mmol/L (137-145); Total Protein 5.8 g/dL (6.3-8.2)
[2023-03-17] MEDS: BENTYL 20 MG PO SCH ×4 (09:39→21:44)
[2023-03-17] MEDS: Zofran 4 MG/2 ML VIAL IV PRN ×2 (09:39→18:44)
[2023-03-17] MEDS: ENOXAPARIN SODIUM SQ SCH (09:39)
[2023-03-17 10:21] LABS: Potassium 2.8 mmol/L (3.5-5.1)
[2023-03-17] MEDS ORDERED: Sodium Chloride 0.9% 1000 ML 1,000 ML ONE (12:04)
[2023-03-17] MEDS: PROTONIX 40 MG IV IV SCH (12:10)
[2023-03-17] MEDS: POTASSIUM CHLORIDE 20 mEq IN WATER 100ML 100 ML IV SCH ×2 (12:10→14:10)
[2023-03-17] MEDS: MOTRIN 200 MG PO PRN ×2 (12:10→18:39)
[2023-03-17] MEDS ORDERED: Sodium Chloride 0.9% 1000 ML 1,000 ML IV SCH (12:15)
[2023-03-17] MEDS ORDERED: POTASSIUM CHLORIDE 20 mEq IN WATER 100ML 20 MEQ/100 ML BAG IV ONE ×2 (19:50→20:34)
[2023-03-17] MEDS ORDERED: POTASSIUM CHLORIDE 20 mEq IN WATER 100ML 100 ML IV ONE (19:55)
[2023-03-17] MEDS ORDERED: Lactated Ringers 1,000 ML IV SCH (20:00)
[2023-03-18] MEDS: ZOFRAN ODT 4 MG PO PRN ×2 (03:54→10:00)
[2023-03-18] MEDS: MOTRIN 200 MG PO PRN ×2 (03:54→10:00)
[2023-03-18 04:39] LABS: Absolute Neutrophil Ct (ANC) 6.15 x10^3/uL (1.4-6.9); BASOPHIL % 0.2 % (0.0-0.4); Basophil (Absolute #) 0.02 x10^3/uL (0-0.4); Eosinophil % 3.6 % (0.00-5.0); Eosinophil (Absolute #) 0.31 x10^3/uL (0-0.5); Hematocrit 35.3 % (35-47); Hemoglobin 11.3 g/dL (12.0-16.0); IMMATURE GRAN # 0.04 x10^3u/L (0.00-0.03); IMMATURE GRAN % 0.5 % (0.00-0.4); Lymphocyte (Absolute #) 1.61 x10^3/uL (1.0-4.6); Lymphocytes % 18.9 % (24.0-44.0); Mean Cell Volume 98.1 fL (78-100); Mean Corpuscular Hemoglobin 31.4 pg (26-32); Mean Platelet Volume 9.1 fL (7.5-11.0); Monocyte (Absolute #) 0.39 x10^3/uL (0.0-1.3); Monocytes % 4.6 % (0.0-12.0); Neutrophil % 72.2 % (36.0-66.0); Platelet Count 341 x10^3/uL (150-450); Red Cell Distribution Width 13.5 % (11.5-14.0); White Blood Count 8.5 x10^3/uL (4.0-10.5)
[2023-03-18 04:55] LABS: ALBUMIN 2.8 g/dL (3.5-5.0); ANION GAP 8.8 MEQ/L (5-15); BILIRUBIN,TOTAL 0.2 mg/dL (0.2-1.3); Calcium 7.9 mg/dL (8.4-10.2); Creatinine 1 0.52 mg/dL (0.52-1.04); Potassium 3.1 mmol/L (3.5-5.1); Total Protein 5.6 g/dL (6.3-8.2)
[2023-03-18] MEDS: TYLENOL 325 MG PO PRN ×2 (05:14→08:16)
[2023-03-18 05:18] VITALS: BP 113/90
--- NOTE | 2023-03-18 05:30 | PCM.NOTE ---
Date and Time: 03/18/23 0529 Subjective Assessment: HPI: is a 48 year old female with PMH of migranes, fibromyalgia, bipolar, born with 1 kidney. She is a patient of Dr. Zuluaga. She was brought into our emergency department by paramedics escorted by law enforcement secondary to possible overdose. Patient has altered mental status but was arousable from a lethargic state and answered questions. She denies being suicidal or homicidal. However, her thinks that she possibly was attempting to overdose. Patient has a history of bipolar disorder with manic episodes. She has required frequent hospitalizations for mental illness issues. Patient is on olanzapine and she took an unknown amount of this medication. A pill bottle was brought in that was filled on 08/08 for 15 tablets. There were 4 tablets missing. A pill bottle of magnesium oxide 400 mg was brought into the hospital that was filled in September 2022 and there were 28 out of 30 tablets still present in the bottle. We did obtain independent, additional history from the patient's and there was significant number of hydrocodone, Voltaren tablets and gabapentin tablets missing from prescriptions that were filled within the last week or 2. It is unclear how many of these medication tablets were taken. In the emergency department respiratory rate was between 14 and 17, afebrile,blood pressure was 114/78 heart rate was in the 70s to 80s. Patient has no specific complaints. ER MD spoke with poison command and control officer Jozef, upon arrival of this patient to the emergency department. It was recommended she be prescribed narcan PRN and a benzo if she has a seizure. Upon looking further at her fill hx online the only med she appears to have filled recently was zyprexa. Her UDS was positive for amphetamines and she does admit to using recently but unable to recall when. Today she has diarrhea and this was sent for further eval. Bed set up for seizure precautions, she has not had a seizure since admission. Since she is so sleepy I will not add a benzo for now. Narcan was added PRN. She denies suicidal or homicidal ideation. She explained it depends on the day if she is getting along with her and would not elaborate.Will consult psych for further eval. BARBIE has resolved since IV fluids gave in ER. Bicarb gtt started. Calcium and magnesium replaced. Pt states she overall does not feel well and is tired. She is currently in the ICU. She denies Cp, SOB, N/V. She admits to abd cramping r/t diarrhea. 03/17/23: Met and examined patient bedside. Endorses nausea (no vomiting), abdominal pain, dysuria, and diarrhea. She also states her hands hurt. Discussed overdose, patient states that she did not do this intentionally. Denies suicidal/homicidal ideation. Psych has recommended IP treatment when medically cleared. May have to ED patient at that time if not agreeable. Denies fever,cough, sob, cp, or dizziness. OBJECTIVE DATA Vital Signs: Vital Signs - 24 hr Temp Pulse Resp BP Pulse Ox 03/18/23 04:00 96.3 F 84 16 113/90 97 03/18/23 03:58 76 03/17/23 23:51 78 03/17/23 23:50 97.5 F 78 16 135/96 96 03/17/23 20:00 78 03/17/23 19:02 97.5 F 78 16 135/96 96 03/17/23 18:57 77 18 96 03/17/23 16:00 97.8 F 81 18 137/88 95 03/17/23 12:00 97.7 F 68 18 126/77 98 03/17/23 08:00 97.7 F 50 L 18 126/86 97 03/17/23 07:57 72 18 96 Pain Assessment - Last Documented Pain Intensity 10 Pain Scale Used 0-10 Pain Scale Intake and Output: Intake & Output 03/15/23 03/16/23 03/17/23 03/18/23 11:59 11:59 11:59 11:59 Intake Total 1480 3230 1607 939 Output Total 800 2300 2625 Balance 680 930 -1018 939 Weight 68.6 kg 66.1 kg 68.6 kg Lab Results: Lab Results-Last 24 Hours 03/15/23 03/17/23 03/17/23 Range/Units 09:15 08:00 09:00 WBC 9.1 (4.0-10.5) x10^3/uL RBC 3.76 L (4.1-5.4) x10^6/uL Hgb 12.1 (12.0-16.0) g/dL Hct 35.6 (35-47) % MCV 94.7 D (78-100) fL MCH 32.2 H (26-32) pg MCHC 34.0 (32-36) g/dL RDW 13.1 (11.5-14.0) % Plt Count 363 (150-450) x10^3/uL MPV 9.2 (7.5-11.0) fL Gran % 76.8 H (36.0-66.0) % Immature Gran % (Auto) 0.7 H (0.00-0.4) % Nucleat RBC Rel Count 0.0 (0.00-0.1) % Eos # (Auto) 0.24 (0-0.5) x10^3/uL Immature Gran # (Auto) 0.06 H (0.00-0.03) x10^3u/L Absolute Lymphs (auto) 1.37 (1.0-4.6) x10^3/uL Absolute Monos (auto) 0.43 (0.0-1.3) x10^3/uL Absolute Nucleated RBC 0.00 (0.00-0.01) x10^3u/L Lymphocytes % 15.1 L (24.0-44.0) % Monocytes % 4.7 (0.0-12.0) % Eosinophils % 2.6 (0.00-5.0) % Basophils % 0.1 (0.0-0.4) % Absolute Granulocytes 6.95 H (1.4-6.9) x10^3/uL Basophils # 0.01 (0-0.4) x10^3/uL Sodium 141 (137-145) mmol/L Potassium 2.8 L* D (3.5-5.1) mmol/L Chloride 112 H (98-107) mmol/L Carbon Dioxide 26 (22-30) mmol/L Anion Gap 5.2 (5-15) MEQ/L BUN 8 (7-17) mg/dL Creatinine 0.52 (0.52-1.04) mg/dL Estimated GFR > 60.0 ML/MIN Glucose 99 (74-106) mg/dL Calcium 7.9 L (8.4-10.2) mg/dL Magnesium (1.6-2.3) mg/dL Total Bilirubin 0.30 (0.2-1.3) mg/dL AST 21 (14-36) U/L ALT 21 (0-35) U/L Alkaline Phosphatase 100 (38-126) U/L Serum Total Protein 5.8 L (6.3-8.2) g/dL Albumin 3.0 L (3.5-5.0) g/dL Cortisol 16.8 (6.2-19.4) ug/dL 03/17/23 03/17/23 03/17/23 Range/Units 10:22 15:00 19:04 WBC (4.0-10.5) x10^3/uL RBC (4.1-5.4) x10^6/uL Hgb (12.0-16.0) g/dL Hct (35-47) % MCV (78-100) fL MCH (26-32) pg MCHC (32-36) g/dL RDW (11.5-14.0) % Plt Count (150-450) x10^3/uL MPV (7.5-11.0) fL Gran % (36.0-66.0) % Immature Gran % (Auto) (0.00-0.4) % Nucleat RBC Rel Count (0.00-0.1) % Eos # (Auto) (0-0.5) x10^3/uL Immature Gran # (Auto) (0.00-0.03) x10^3u/L Absolute Lymphs (auto) (1.0-4.6) x10^3/uL Absolute Monos (auto) (0.0-1.3) x10^3/uL Absolute Nucleated RBC (0.00-0.01) x10^3u/L Lymphocytes % (24.0-44.0) % Monocytes % (0.0-12.0) % Eosinophils % (0.00-5.0) % Basophils % (0.0-0.4) % Absolute Granulocytes (1.4-6.9) x10^3/uL Basophils # (0-0.4) x10^3/uL Sodium (137-145) mmol/L Potassium 3.3 L 3.2 L (3.5-5.1) mmol/L Chloride (98-107) mmol/L Carbon Dioxide (22-30) mmol/L Anion Gap (5-15) MEQ/L BUN (7-17) mg/dL Creatinine (0.52-1.04) mg/dL Estimated GFR ML/MIN Glucose (74-106) mg/dL Calcium (8.4-10.2) mg/dL Magnesium 1.9 (1.6-2.3) mg/dL Total Bilirubin (0.2-1.3) mg/dL AST (14-36) U/L ALT (0-35) U/L Alkaline Phosphatase (38-126) U/L Serum Total Protein (6.3-8.2) g/dL Albumin (3.5-5.0) g/dL Cortisol (6.2-19.4) ug/dL 03/18/23 03/18/23 Range/Units 04:35 04:35 WBC 8.5 (4.0-10.5) x10^3/uL RBC 3.60 L (4.1-5.4) x10^6/uL Hgb 11.3 L (12.0-16.0) g/dL Hct 35.3 (35-47) % MCV 98.1 (78-100) fL MCH 31.4 (26-32) pg MCHC 32.0 (32-36) g/dL RDW 13.5 (11.5-14.0) % Plt Count 341 (150-450) x10^3/uL MPV 9.1 (7.5-11.0) fL Gran % 72.2 H (36.0-66.0) % Immature Gran % (Auto) 0.5 H (0.00-0.4) % Nucleat RBC Rel Count 0.0 (0.00-0.1) % Eos # (Auto) 0.31 (0-0.5) x10^3/uL Immature Gran # (Auto) 0.04 H (0.00-0.03) x10^3u/L Absolute Lymphs (auto) 1.61 (1.0-4.6) x10^3/uL Absolute Monos (auto) 0.39 (0.0-1.3) x10^3/uL Absolute Nucleated RBC 0.00 (0.00-0.01) x10^3u/L Lymphocytes % 18.9 L (24.0-44.0) % Monocytes % 4.6 (0.0-12.0) % Eosinophils % 3.6 (0.00-5.0) % Basophils % 0.2 (0.0-0.4) % Absolute Granulocytes 6.15 (1.4-6.9) x10^3/uL Basophils # 0.02 (0-0.4) x10^3/uL Sodium 138 (137-145) mmol/L Potassium 3.1 L (3.5-5.1) mmol/L Chloride 112 H (98-107) mmol/L Carbon Dioxide 20 L (22-30) mmol/L Anion Gap 8.8 (5-15) MEQ/L BUN 9 (7-17) mg/dL Creatinine 0.52 (0.52-1.04) mg/dL Estimated GFR 116.0 ML/MIN Glucose 93 (74-106) mg/dL Calcium 7.9 L (8.4-10.2) mg/dL Magnesium (1.6-2.3) mg/dL Total Bilirubin 0.20 (0.2-1.3) mg/dL AST 20 (14-36) U/L ALT 21 (0-35) U/L Alkaline Phosphatase 93 (38-126) U/L Serum Total Protein 5.6 L (6.3-8.2) g/dL Albumin 2.8 L (3.5-5.0) g/dL Cortisol (6.2-19.4) ug/dL Multi-Disciplinary Progress Notes: Multi-Disciplinary Progress Notes 03/17/23 12:59 Case Management Note by Carmen Yanes CASE MANAGEMENT ASSESS DEFERRED AT THIS TIME PATIENT NEEDS INPT PSYCH CARE WHEN MEDICALLY STABLE Initialized on 03/17/23 12:59 - END OF NOTE Assessment/Plan (1) Overdose by ingestion Current Visit: Yes Status: Acute Assessment & Plan: (1) Overdose by ingestion Current Visit: Yes Status: Acute Assessment & Plan: - Possible zyprexa, hydrocodone, voltaren, and gabapentin - poison control called, recs include benzos for possible seizures and narcan PRN - Pt has had no active seizures. Due to lethargy will hold benzos for now. - seizure precautions - denies suicidal or homicidal ideation - Psych consult- recommended IP when pt is stable. May need emergency detained Code(s): T50.901A - POISONING BY UNSP DRUG/MEDS/BIOL SUBST, ACCIDENTAL, INIT (2) Metabolic acidosis Current Visit: Yes Status: Acute Assessment & Plan: - 2:2 diarrhea, BARBIE, OD - bicarb gtt started 03/16 - labs improving- trend - continue bicarb gtt 03/17: -resolved, bicarb d/cd Code(s): E87.20 - ACIDOSIS, UNSPECIFIED #hypokalemia -Potassium reviewed, at 2.8, will replenish (3) UTI (urinary tract infection) Current Visit: Yes Status: Acute Assessment & Plan: - rocephin - UC pending - pt has 1 kidney - IV fluids 03/16 - UC negative- stopped antibiotics Code(s): N39.0 - URINARY TRACT INFECTION, SITE NOT SPECIFIED (4) Methamphetamine abuse Current Visit: Yes Status: Acute Assessment & Plan: - recent use admitted by pt - advised cessation Code(s): F15.10 - OTHER STIMULANT ABUSE, UNCOMPLICATED (5) Diarrhea Current Visit: Yes Status: Acute Assessment & Plan: - Stool sent for C-diff and culture 03/16 - C-diff negative - Stools solid- resolved 03/17: -patient states she had several stools overnight Code(s): R19.7 - DIARRHEA, UNSPECIFIED (6) Bipolar 1 disorder Current Visit: Yes Status: Acute Assessment & Plan: - Zyprexa held for now due to possible OD - Psych consult Code(s): F31.9 - BIPOLAR DISORDER, UNSPECIFIED (7) BARBIE (acute kidney injury) Current Visit: Yes Status: Acute Assessment & Plan: -Resolved 03/15/23 with IVF 03/16 - worsened overnight as pt had N/V- IVF 03/17: -resolved Code(s): N17.9 - ACUTE KIDNEY FAILURE, UNSPECIFIED (8) Hypomagnesemia Current Visit: Yes Status: Acute Assessment & Plan: - Mg+ 2.7 replaced - will recheck at noon- resolved Code(s): E83.42 - HYPOMAGNESEMIA (9) Hypocalcemia Current Visit: Yes Status: Acute Assessment & Plan: - Calcium 7.0 at 02:20 and 7.2 at 9:15- replaced - will recheck at noon 03/16 - Ca+ 7.7 replaced 03/17: -In the setting of hypoalbuminemia, corrected calcium 8.3, will continue to monitor Code(s): E83.51 - HYPOCALCEMIA (10) Abdominal pain Current Visit: No Status: Acute Qualifiers: Assessment & Plan: - 2:2 diarrhea- stools studies sent - KUB- reviewed - negative - Continue bentyl 03/16 - pepcid and compazine added Code(s): R10.9 - UNSPECIFIED ABDOMINAL PAIN (11) Altered mental status Current Visit: No Status: Resolved Assessment & Plan: - Found down at home - pt easily arousable today and answering questions appropriately. - EKG reviewed - tele - neuro checks - seizure precautions - CT brain negative - most likely r/t UTI/ OD/ BARBIE 03/16 - resolved, awake and alert VTE: lovenox PPI: pantoprazole Code status: Full Next of Kin: Code(s): T50.901A - POISONING BY UNSP DRUG/MEDS/BIOL SUBST, ACCIDENTAL, INIT Code(s): T50.901A - POISONING BY UNSP DRUG/MEDS/BIOL SUBST, ACCIDENTAL, INIT (2) BARBIE (acute kidney injury) Current Visit: Yes Status: Acute Code(s): N17.9 - ACUTE KIDNEY FAILURE, UNSPECIFIED (3) Bipolar 1 disorder Current Visit: Yes Status: Acute Code(s): F31.9 - BIPOLAR DISORDER, UNSPECIFIED (4) Diarrhea Current Visit: Yes Status: Acute Code(s): R19.7 - DIARRHEA, UNSPECIFIED (5) Hypocalcemia Current Visit: Yes Status: Acute Code(s): E83.51 - HYPOCALCEMIA (6) Hypomagnesemia Current Visit: Yes Status: Acute Code(s): E83.42 - HYPOMAGNESEMIA (7) Metabolic acidosis Current Visit: Yes Status: Acute Code(s): E87.20 - ACIDOSIS, UNSPECIFIED (8) Methamphetamine abuse Current Visit: Yes Status: Acute Code(s): F15.10 - OTHER STIMULANT ABUSE, UNCOMPLICATED (9) UTI (urinary tract infection) Current Visit: Yes Status: Acute Code(s): N39.0 - URINARY TRACT INFECTION, S ITE NOT SPECIFIED (10) Abdominal pain Current Visit: No Status: Acute Qualifiers: Code(s): R10.9 - UNSPECIFIED ABDOMINAL PAIN (11) Altered mental status Current Visit: No Status: Resolved Code(s): R41.82 - ALTERED MENTAL STATUS, UNSPECIFIED (12) Hypokalemia Current Visit: Yes Status: Acute Code(s): E87.6 - HYPOKALEMIA
[2023-03-18 07:06] VITALS: RESP 18; TEMP 98.7
[2023-03-18] MEDS: Pepcid 20 MG PO PRN (08:14)
[2023-03-18] MEDS: Compazine 10 MG/2 ML IV PRN (08:14)
[2023-03-18] MEDS: PROTONIX 40 MG IV IV SCH (08:14)
[2023-03-18] MEDS: BENTYL 20 MG PO SCH ×2 (08:15→12:12)
[2023-03-18] MEDS: ENOXAPARIN SODIUM SQ SCH (08:15)
[2023-03-18] MEDS: Klor Con PO SCH ×3 (08:16→12:12)
[2023-03-18] MEDS ORDERED: SODIUM BICARBONATE PO SCH (10:00)
[2023-03-18 11:47] VITALS: O2SAT 100
[2023-03-18 11:48] VITALS: PULSE 88
--- NOTE | 2023-03-18 13:06 | PCM.DS ---
Discharge Summary Date of Admission: 03/15/23 05:27 Date of Discharge: 03/18/23 Admitting Physician: CHAS VEGA MD Consults: Consults on Case 03/15/23 11:37 Consult,Shayy [Psychiatric Consult] STAT Primary Care Provider: GASTON CAMPUZANO Allergies Allergies Sulfa (Sulfonamide Antibiotics) Allergy (Intermediate, Verified 03/14/23 22:48) Vomiting ketorolac [From Toradol] Allergy (Unknown, Verified 03/14/23 22:48) bee venom protein (honey bee) Allergy (Verified 03/14/23 22:48) methylprednisolone [From Solu-Medrol] Allergy (Verified 03/14/23 22:48) anger can take oral steroids, IV steroids she cannot take -- states she gets "roid rage" sumatriptan [From Imitrex] Allergy (Verified 03/14/23 22:48) nitrofurantoin [From Macrobid] Adverse Reaction (Verified 03/14/23 22:48) tramadol Adverse Reaction (Verified 03/14/23 22:48) Nausea flu vaccine Allergy (Intermediate, Uncoded 08/02/22 21:25) Hoarseness of voice Hospital Summary - Hospital Course Hospital Course: HPI: is a 48 year old female with PMH of migranes, fibromyalgia, bipolar, born with 1 kidney. She is a patient of Dr. Campuzano. She was brought into our emergency department by paramedics escorted by law enforcement secondary to possible overdose. Patient has altered mental status but was arousable from a lethargic state and answered questions. She denies being suicidal or homicidal. However, her thinks that she possibly was attempting to overdose. Patient has a history of bipolar disorder with manic episodes. She has required frequent hospitalizations for mental illness issues. Patient is on olanzapine and she took an unknown amount of this medication. A pill bottle was brought in that was filled on 08/08 for 15 tablets. There were 4 tablets missing. A pill bottle of magnesium oxide 400 mg was brought into the hospital that was filled in September 2022 and there were 28 out of 30 tablets still present in the bottle. We did obtain independent, additional history from the patient's and there was significant number of hydrocodone, Voltaren tablets and gabapentin tablets missing from prescriptions that were filled within the last week or 2. It is unclear how many of these medication tablets were taken. In the emergency department respiratory rate was between 14 and 17, afebrile,blood pressure was 114/78 heart rate was in the 70s to 80s. Patient has no specific complaints. ER MD spoke with poison inventory control supervisor Jozef, upon arrival of this patient to the emergency department. It was recommended she be prescribed narcan PRN and a benzo if she has a seizure. Upon looking further at her fill hx online the only med she appears to have filled recently was zyprexa. Her UDS was positive for amphetamines and she does admit to using recently but unable to recall when. During hospital course, psych was consulted and evaluated patient. She is cleared for home discharge from their standpoint. BARBIE has resolved since IV fluids gave in ER. Bicarb gtt was initiated and co2 levels with noted improvement. Patient will discharge home today. She is to follow [facility] at [facility] for medication check as she has not been taking her meds since . She is medically stable and ready for discharge. New Diagnosis: Overdose New Medications:none Follow Up: PCP/[facility] Latest Assessment & Plan (1) Overdose by ingestion Current Visit: Yes Status: Acute Assessment & Plan: (1) Overdose by ingestion Current Visit: Yes Status: Acute Assessment & Plan: - Possible zyprexa, hydrocodone, voltaren, and gabapentin - poison control called, recs include benzos for possible seizures and narcan PRN - Pt has had no active seizures. Due to lethargy will hold benzos for now. - seizure precautions - denies suicidal or homicidal ideation - Psych consult- recommended IP when pt is stable. May need emergency detained 03/18: -Psych re-eval recommending home discharge. Code(s): T50.901A - POISONING BY UNSP DRUG/MEDS/BIOL SUBST, ACCIDENTAL, INIT (2) Metabolic acidosis Current Visit: Yes Status: Acute Assessment & Plan: - 2:2 diarrhea, BARBIE, OD - bicarb gtt started 03/16 - labs improving- trend - continue bicarb gtt 03/17: -resolved, bicarb d/cd Code(s): E87.20 - ACIDOSIS, UNSPECIFIED #hypokalemia -Potassium reviewed, at 2.8, will replenish (3) UTI (urinary tract infection) Current Visit: Yes Status: Acute Assessment & Plan: - rocephin - UC pending - pt has 1 kidney - IV fluids 03/16 - UC negative- stopped antibiotics Code(s): N39.0 - URINARY TRACT INFECTION, SITE NOT SPECIFIED (4) Methamphetamine abuse Current Visit: Yes Status: Acute Assessment & Plan: - recent use admitted by pt - advised cessation Code(s): F15.10 - OTHER STIMULANT ABUSE, UNCOMPLICATED (5) Diarrhea Current Visit: Yes Status: Acute Assessment & Plan: - Stool sent for C-diff and culture 03/16 - C-diff negative - Stools solid- resolved 03/17: -patient states she had several stools overnight Code(s): R19.7 - DIARRHEA, UNSPECIFIED (6) Bipolar 1 disorder Current Visit: Yes Status: Acute Assessment & Plan: - Zyprexa held for now due to possible OD - Psych consult Code(s): F31.9 - BIPOLAR DISORDER, UNSPECIFIED (7) ABRBIE (acute kidney injury) Current Visit: Yes Status: Acute Assessment & Plan: -Resolved 03/15/23 with IVF 03/16 - worsened overnight as pt had N/V- IVF 03/17: -resolved Code(s): N17.9 - ACUTE KIDNEY FAILURE, UNSPECIFIED (8) Hypomagnesemia Current Visit: Yes Status: Acute Assessment & Plan: - Mg+ 2.7 replaced - will recheck at noon- resolved Code(s): E83.42 - HYPOMAGNESEMIA (9) Hypocalcemia Current Visit: Yes Status: Acute Assessment & Plan: - Calcium 7.0 at 02:20 and 7.2 at 9:15- replaced - will recheck at noon 03/16 - Ca+ 7.7 replaced 03/17: -In the setting of hypoalbuminemia, corrected calcium 8.3, will continue to monitor Code(s): E83.51 - HYPOCALCEMIA (10) Abdominal pain Current Visit: No Status: Acute Qualifiers: Assessment & Plan: - 2:2 diarrhea- stools studies sent - KUB- reviewed - negative - Continue bentyl 03/16 - pepcid and compazine added Code(s): R10.9 - UNSPECIFIED ABDOMINAL PAIN (11) Altered mental status Current Visit: No Status: Resolved Assessment & Plan: - Found down at home - pt easily arousable today and answering questions appropriately. - EKG reviewed - tele - neuro checks - seizure precautions - CT brain negative - most likely r/t UTI/ OD/ BARBIE 03/16 - resolved, awake and alert I spent 35 minutes [id number] with the patient on the day of discharge performing discharge exam, discussing hospital stay and discharge instructions with patient and caregivers, preparation of discharge records, prescriptions & referral forms and addressing any questions/concerns the patient had as documented above. - Vitals & Intake/Output Vital Signs: Vital Signs Temperature 98.7 F 03/18/23 07:04 Pulse Rate 88 03/18/23 11:47 Respiratory Rate 18 03/18/23 11:46 Blood Pressure 113/90 03/18/23 07:04 O2 Sat by Pulse Oximetry 100 03/18/23 11:46 Intake & Output: Intake & Output 03/16/23 03/17/23 03/18/23 03/19/23 11:59 11:59 11:59 11:59 Intake Total 3230 1607 1289 Output Total 2300 2625 Balance 930 -1018 1289 Weight 66.1 kg 68.6 kg - Lab Result Diagrams: 03/18/23 04:35 03/18/23 04:35 Lab Results-Last 24 Hrs: Lab Results-Last 24 Hours 03/15/23 03/17/23 03/17/23 Range/Units 09:15 15:00 19:04 WBC (4.0-10.5) x10^3/uL RBC (4.1-5.4) x10^6/uL Hgb (12.0-16.0) g/dL Hct (35-47) % MCV (78-100) fL MCH (26-32) pg MCHC (32-36) g/dL RDW (11.5-14.0) % Plt Count (150-450) x10^3/uL MPV (7.5-11.0) fL Gran % (36.0-66.0) % Immature Gran % (Auto) (0.00-0.4) % Nucleat RBC Rel Count (0.00-0.1) % Eos # (Auto) (0-0.5) x10^3/uL Immature Gran # (Auto) (0.00-0.03) x10^3u/L Absolute Lymphs (auto) (1.0-4.6) x10^3/uL Absolute Monos (auto) (0.0-1.3) x10^3/uL Absolute Nucleated RBC (0.00-0.01) x10^3u/L Lymphocytes % (24.0-44.0) % Monocytes % (0.0-12.0) % Eosinophils % (0.00-5.0) % Basophils % (0.0-0.4) % Absolute Granulocytes (1.4-6.9) x10^3/uL Basophils # (0-0.4) x10^3/uL Sodium (137-145) mmol/L Potassium 3.3 L 3.2 L (3.5-5.1) mmol/L Chloride (98-107) mmol/L Carbon Dioxide (22-30) mmol/L Anion Gap (5-15) MEQ/L BUN (7-17) mg/dL Creatinine (0.52-1.04) mg/dL Estimated GFR ML/MIN Glucose (74-106) mg/dL Calcium (8.4-10.2) mg/dL Total Bilirubin (0.2-1.3) mg/dL AST (14-36) U/L ALT (0-35) U/L Alkaline Phosphatase (38-126) U/L Serum Total Protein (6.3-8.2) g/dL Albumin (3.5-5.0) g/dL Cortisol 16.8 (6.2-19.4) ug/dL 03/18/23 03/18/23 Range/Units 04:35 04:35 WBC 8.5 (4.0-10.5) x10^3/uL RBC 3.60 L (4.1-5.4) x10^6/uL Hgb 11.3 L (12.0-16.0) g/dL Hct 35.3 (35-47) % MCV 98.1 (78-100) fL MCH 31.4 (26-32) pg MCHC 32.0 (32-36) g/dL RDW 13.5 (11.5-14.0) % Plt Count 341 (150-450) x10^3/uL MPV 9.1 (7.5-11.0) fL Gran % 72.2 H (36.0-66.0) % Immature Gran % (Auto) 0.5 H (0.00-0.4) % Nucleat RBC Rel Count 0.0 (0.00-0.1) % Eos # (Auto) 0.31 (0-0.5) x10^3/uL Immature Gran # (Auto) 0.04 H (0.00-0.03) x10^3u/L Absolute Lymphs (auto) 1.61 (1.0-4.6) x10^3/uL Absolute Monos (auto) 0.39 (0.0-1.3) x10^3/uL Absolute Nucleated RBC 0.00 (0.00-0.01) x10^3u/L Lymphocytes % 18.9 L (24.0-44.0) % Monocytes % 4.6 (0.0-12.0) % Eosinophils % 3.6 (0.00-5.0) % Basophils % 0.2 (0.0-0.4) % Absolute Granulocytes 6.15 (1.4-6.9) x10^3/uL Basophils # 0.02 (0-0.4) x10^3/uL Sodium 138 (137-145) mmol/L Potassium 3.1 L (3.5-5.1) mmol/L Chloride 112 H (98-107) mmol/L Carbon Dioxide 20 L (22-30) mmol/L Anion Gap 8.8 (5-15) MEQ/L BUN 9 (7-17) mg/dL Creatinine 0.52 (0.52-1.04) mg/dL Estimated GFR 116.0 ML/MIN Glucose 93 (74-106) mg/dL Calcium 7.9 L (8.4-10.2) mg/dL Total Bilirubin 0.20 (0.2-1.3) mg/dL AST 20 (14-36) U/L ALT 21 (0-35) U/L Alkaline Phosphatase 93 (38-126) U/L Serum Total Protein 5.6 L (6.3-8.2) g/dL Albumin 2.8 L (3.5-5.0) g/dL Cortisol (6.2-19.4) ug/dL Micro Results-Entire Visit: Microbiology 03/14/23 23:07 Urine Culture - Final Catherized NO GROWTH - Procedures and Test Procedures and Tests throughout Hospitalization: Therapy Orders & Screens 03/15/23 05:32 Oxygen Nasal Cannula 2 lpm Comment: Respiratory Therapy Consult ONCE Comment: Reason For Exam: 03/15/23 07:08 Respiratory Therapy Assessment DAILY Comment: Diagnosis: overdose 03/16/23 05:00 EKG ROUTINE Comment: Discharge Exam General Appearance: no apparent distress Neurologic Exam: alert, oriented x 3, cooperative Eye Exam: PERRL Ears, Nose, Throat Exam: normal ENT inspection Neck Exam: normal inspection Respiratory Exam: normal breath sounds, lungs clear Cardiovascular Exam: regular rate/rhythm, normal heart sounds Gastrointestinal/Abdomen Exam: soft, normal bowel sounds, tenderness Pelvic Exam: deferred Rectal Exam: deferred Back Exam: normal inspection Extremity Exam: normal inspection Skin Exam: normal color Final Diagnosis/Problem List - Final Discharge Diagnosis/Problem (1) Overdose by ingestion Current Visit: Yes Status: Resolved Code(s): T50.901A - POISONING BY UNSP DRUG/MEDS/BIOL SUBST, ACCIDENTAL, INIT (2) BARBIE (acute kidney injury) Current Visit: Yes Status: Resolved Code(s): N17.9 - ACUTE KIDNEY FAILURE, UNSPECIFIED (3) Bipolar 1 disorder Current Visit: Yes Status: Chronic Code(s): F31.9 - BIPOLAR DISORDER, UNSPECIFIED (4) Diarrhea Current Visit: Yes Status: Resolved Code(s): R19.7 - DIARRHEA, UNSPECIFIED (5) Hypocalcemia Current Visit: Yes Status: Resolved Code(s): E83.51 - HYPOCALCEMIA (6) Hypomagnesemia Current Visit: Yes Status: Resolved Code(s): E83.42 - HYPOMAGNESEMIA (7) Metabolic acidosis Current Visit: Yes Status: Resolved Code(s): E87.20 - ACIDOSIS, UNSPECIFIED (8) Methamphetamine abuse Current Visit: Yes Status: Chronic Code(s): F15.10 - OTHER STIMULANT ABUSE, UNCOMPLICATED (9) UTI (urinary tract infection) Current Visit: Yes Status: Ruled-out Code(s): N39.0 - URINARY TRACT INFECTION, SITE NOT SPECIFIED (10) Abdominal pain Current Visit: No Status: Resolved Code(s): R10.9 - UNSPECIFIED ABDOMINAL PAIN (11) Altered mental status Current Visit: No Status: Resolved Code(s): R41.82 - ALTERED MENTAL STATUS, UNSPECIFIED (12) Hypokalemia Current Visit: Yes Status: Acute Code(s): E87.6 - HYPOKALEMIA - Discharge Disposition: Home, Self-Care Condition: Fair Prescriptions: New Potassium Chloride Tab* [Klor Con] 20 meq PO DAILY 30 Days #60 tab Discontinued Gabapentin 600 mg PO QID PRN PRN Reason: Pain Dicyclomine HCl 20 mg [Bentyl 20 mg] 20 mg PO QID 10 Days #40 tablet Ondansetron ODT 4 MG [Zofran Odt 4 mg] 8 mg PO Q6H PRN PRN PRN Reason: Nausea Follow up with: GASTON CAMPUZANO [Primary Care Provider] - 5 Days [place] [LOCATION] - (3-5 days)
== END 2023-03-18 13:54 | disposition home or self-care (01) | DRG 918 ==
LOC: ED 22:45 → ICU 03-15 05:27
PROVIDERS: ADMIT Internal Medicine Critical Care Medicine; ATTEND Internal Medicine Critical Care Medicine
DX: T50.901A Poisoning by unspecified drugs, medicaments and biological substances, accidental (unintentional), initial encounter (principal); E87.20 Acidosis, unspecified; N39.0 Urinary tract infection, site not specified; N17.9 Acute kidney failure, unspecified; E87.6 Hypokalemia; F15.10 Other stimulant abuse, uncomplicated; R19.7 Diarrhea, unspecified; F31.9 Bipolar disorder, unspecified; E83.42 Hypomagnesemia; E83.51 Hypocalcemia; R10.9 Unspecified abdominal pain; R41.82 Altered mental status, unspecified; Z79.899 Other long term (current) drug therapy; Z20.828 Contact with and (suspected) exposure to other viral communicable diseases; Z85.828 Personal history of other malignant neoplasm of skin
CPT/HCPCS: 36000; 36415; 36600; 36680; 51702; 70450; 71045; 74018; 80048; 80053; 80143; 80179; 80307; 81001; 82077; 82310; 82375; 82533; 82803; 82947; 83036; 83605; 83735; 83880; 84132; 84443; 85025; 85027; 87045; 87046; 87086; 87427; 87493; 93005; 93041; 96360; 96365; 96374; 99285; 99291; J0612; J0696; J1650; J2405; J3480; Q0162; Q3014; A9270-GY

== ENCOUNTER → 2023-04-14 | Emergency (ER) | payer OTHER | END | disposition left against medical advice (07) | LOC: ED 13:10 | DX: Z53.21 Procedure and treatment not carried out due to patient leaving prior to being seen by health care provider (principal) ==

== ENCOUNTER 2023-04-20 17:15 | Emergency (ER) | payer OTHER ==
[2023-04-20 18:08] LABS: Appearance Cloudy (Clear); Bacteria Few /HPF (None Seen); Bilirubin Negative (Negative); Blood Large (Negative); Epithelial Cells Few /HPF (None Seen); Glucose, Urine Negative (Negative); Ketones Trace (Negative); Leukocyte Esterase Moderate (Negative); Nitrite Negative (Negative); Protein,Urine Dip 30 (Negative); RBC >100 /HPF (0-5); WBC 21-50 /HPF (0-5)
[2023-04-20 18:09] VITALS: TEMP 97.9
[2023-04-20 18:30] LABS: Absolute Neutrophil Ct (ANC) 12.65 x10^3/uL (1.4-6.9); BASOPHIL % 0.2 % (0.0-0.4); Basophil (Absolute #) 0.03 x10^3/uL (0-0.4); Eosinophil % 4.4 % (0.00-5.0); Hematocrit 40.5 % (35-47); Hemoglobin 12.7 g/dL (12.0-16.0); IMMATURE GRAN # 0.05 x10^3u/L (0.00-0.03); IMMATURE GRAN % 0.3 % (0.00-0.4); Lymphocyte (Absolute #) 1.86 x10^3/uL (1.0-4.6); Lymphocytes % 11.6 % (24.0-44.0); Mean Cell Volume 101.8 fL (78-100); Mean Corpuscular Hemoglobin 31.9 pg (26-32); Mean Corpuscular Hgb Concent. 31.4 g/dL (32-36); Mean Platelet Volume 8.7 fL (7.5-11.0); Monocytes % 4.4 % (0.0-12.0); Neutrophil % 79.1 % (36.0-66.0); Platelet Count 396 x10^3/uL (150-450); Red Blood Count 3.98 x10^6/uL (4.1-5.4); Red Cell Distribution Width 13.3 % (11.5-14.0)
--- NOTE | 2023-04-20 18:33 | ERPHSYRPT ---
- History of Present Illness Time Seen by Provider: 04/20/23 17:21 Historian: patient Exam Limitations: no limitations Patient Subjective Stated Complaint: Right flank pain Triage Nursing Assessment: ff Physician History: 48 years old female with history of bipolar disorder, fibromyalgia, migraines, chronic abdominal pain presented to the ER with chief complaint of worsening right-sided abdominal pain for the last couple of days with associated nausea vomiting and diarrhea. Patient denies any hematemesis/hematochezia. No fever or chills reported. Patient reports moderate to severe sharp stabbing pain in the right upper quadrant without any significant aggravating or relieving factors. Feels weak fatigued tired and dehydrated. Allergies/Adverse Reactions: Sulfa (Sulfonamide Antibiotics) Allergy (Intermediate, Verified 04/20/23 17:48) Vomiting ketorolac [From Toradol] Allergy (Unknown, Verified 04/20/23 17:48) bee venom protein (honey bee) Allergy (Verified 04/20/23 17:48) methylprednisolone [From Solu-Medrol] Allergy (Verified 04/20/23 17:48) anger can take oral steroids, IV steroids she cannot take -- states she gets "roid rage" sumatriptan [From Imitrex] Allergy (Verified 04/20/23 17:48) nitrofurantoin [From Macrobid] Adverse Reaction (Verified 04/20/23 17:48) tramadol Adverse Reaction (Verified 04/20/23 17:48) Nausea flu vaccine Allergy (Intermediate, Uncoded 04/20/23 17:48) Hoarseness of voice Hx Tetanus, Diphtheria Vaccination/Date Given: Yes Hx Influenza Vaccination/Date Given: No Hx Pneumococcal Vaccination/Date Given: No Immunizations Up to Date: Yes Travel Risk - International Travel Have you traveled outside of the country in past 3 weeks: No - Coronavirus Screening Are you exhibiting any of the following symptoms?: No Close contact with a COVID-19 positive Pt in past 14-21 Days: No - Vaccine Status Have you recieved a Covid-19 vaccination: No - Review of Systems Constitutional: Fatigue Eyes: No Symptoms Ears, Nose, & Throat: No Symptoms Respiratory: No Symptoms Cardiac: No Symptoms Abdominal/Gastrointestinal: Abdominal Pain, Nausea, Vomiting, Diarrhea Genitourinary Symptoms: No Symptoms Musculoskeletal: No Symptoms Skin: No Symptoms Neurological: No Symptoms Psychological: No Symptoms Endocrine: No Symptoms Hematologic/Lymphatic: No Symptoms - Past Medical History Pertinent Past Medical History: Yes Neurological History: Migraines ENT History: No Pertinent History Cardiac History: No Pertinent History Respiratory History: No Pertinent History Endocrine Medical History: No Pertinent History Musculoskeletal History: Fibromyalgia GI Medical History: Gallbladder Disease, Other History: Other Psycho-Social History: Bipolar Female Reproductive Disorders: Other Other Medical History: kidney stones, born with 1 kidney (left only) - Past Surgical History Past Surgical History: Yes Neuro Surgical History: No Pertinent History Cardiac: No Pertinent History Respiratory: No Pertinent History Gastrointestinal: Bowel Surgery, Cholecystectomy Genitourinary: No Pertinent History Musculoskeletal: No Pertinent History Female Surgical History: Hysterectomy, Section, Tubal Ligation Other Surgical History: skin cancer removed twice, Umbilical hernia repair. ruptured hernia- colostomy and reversal - Social History Smoking Status: Never smoker How long have you smoked: 20yrs Exposure to second hand smoke: No Drug Use: none Patient Lives Alone: No Significant Family History: no pertinent family hx - Female History Hx Last Menstrual Period: na Hx Now: No - Nursing Vital Signs Nursing Vital Signs: Initial Vital Signs Temperature 97.9 F 04/20/23 17:58 Pulse Rate 86 04/20/23 17:58 Respiratory Rate 18 04/20/23 17:58 Blood Pressure 111/89 04/20/23 17:58 O2 Sat by Pulse Oximetry 99 04/20/23 17:58 Pain Scale Pain Intensity 7 - Physical Exam General Appearance: no apparent distress, alert Eye Exam: PERRL/EOMI Ears, Nose, Throat Exam: normal ENT inspection, TMs normal, pharynx normal, charanjit st mucous membranes Neck Exam: normal inspection, non-tender, supple, full range of motion Respiratory Exam: normal breath sounds, lungs clear Cardiovascular Exam: regular rate/rhythm, normal heart sounds Gastrointestinal/Abdomen Exam: soft, normal bowel sounds, tenderness (Upper quadrant/right flank) Back Exam: normal inspection, normal range of motion Extremity Exam: normal inspection, normal range of motion Neurologic Exam: alert, oriented x 3, cooperative Skin Exam: normal color SpO2 Interpretation: normal SpO2: 99 O2 Delivery: Room Air Ordered Tests: Active Orders 24 hr Category Date Time Status IV Insertion STAT Care 04/20/23 18:46 Active NPO (ED) STAT Care 04/20/23 18:46 Active ABDOMEN AND PELVIS W/0 CONTRAS [CT] Stat Exams 04/20/23 18:46 Completed CBC W DIFF Stat Lab 04/20/23 18:25 Completed CMP Stat Lab 04/20/23 18:25 Completed CULTURE,URINE Stat Lab 04/20/23 17:48 Received HCG QUALITATIVE, URINE Stat Lab 04/20/23 18:30 Completed LIPASE Stat Lab 04/20/23 18:51 Completed UA W/RFX UR CULTURE Stat Lab 04/20/23 17:48 Completed Transfer Order Routine Transfer 04/20/23 Ordered Medication Summary Discontinued Medications Generic Name Dose Route Start Last Admin Trade Name Yehuda PRN Reason Stop Dose Admin Sodium Chloride 1,000 mls @ 999 mls/hr 04/20/23 18:46 04/20/23 20:28 Sodium Chloride 0.9% 1000 Ml IV 04/20/23 19:46 Infused .Q1H1M STA Infusion Sodium Chloride Confirm 04/20/23 19:13 Sodium Chloride 0.9% 1000 Ml Administered 04/20/23 19:14 Dose 1,000 mls @ ud .ROUTE .STK-MED ONE Ceftriaxone Sodium/Dextrose 2 g in 50 mls @ 100 mls/hr 04/20/23 19:37 04/20/23 20:17 Rocephin 2 Gm-D5w 50ml Bag IV 04/20/23 20:06 Infused STAT STA Infusion Ceftriaxone Sodium/Dextrose Confirm 04/20/23 19:41 Rocephin 2 Gm-D5w 50ml Bag Administered 04/20/23 19:42 Dose 2 g in 50 mls @ ud IV .STK-MED ONE Morphine Sulfate 4 mg 04/20/23 18:46 04/20/23 19:21 Morphine Sulfate 4 Mg/Ml Injection IV 04/20/23 18:47 4 mg STAT ONE Administration Morphine Sulfate Confirm 04/20/23 19:13 Morphine Sulfate 4 Mg/Ml Injection Administered 04/20/23 19:14 Dose 4 mg .ROUTE .STK-MED ONE Ondansetron HCl 4 mg 04/20/23 18:46 04/20/23 19:21 Ondansetron Hcl 4 Mg/2 Ml Vial IV 04/20/23 18:47 4 mg STAT ONE Administration Ondansetron HCl Confirm 04/20/23 19:12 Ondansetron Hcl 4 Mg/2 Ml Vial Administered 04/20/23 19:13 Dose 4 mg .ROUTE .STK-MED ONE Lab/Rad Data: Laboratory Result Diagrams 04/20/23 18:25 04/20/23 18:25 Laboratory Results 04/20/23 04/20/23 04/20/23 Range/Units 18:51 18:30 18:25 WBC (4.0-10.5) x10^3/uL RBC (4.1-5.4) x10^6/uL Hgb (12.0-16.0) g/dL Hct (35-47) % MCV (78-100) fL MCH (26-32) pg MCHC (32-36) g/dL RDW (11.5-14.0) % Plt Count (150-450) x10^3/uL MPV (7.5-11.0) fL Gran % (36.0-66.0) % Immature Gran % (Auto) (0.00-0.4) % Nucleat RBC Rel Count (0.00-0.1) % Eos # (Auto) (0-0.5) x10^3/uL Immature Gran # (Auto) (0.00-0.03) x10^3u/L Absolute Lymphs (auto) (1.0-4.6) x10^3/uL Absolute Monos (auto) (0.0-1.3) x10^3/uL Absolute Nucleated RBC (0.00-0.01) x10^3u/L Lymphocytes % (24.0-44.0) % Monocytes % (0.0-12.0) % Eosinophils % (0.00-5.0) % Basophils % (0.0-0.4) % Absolute Granulocytes (1.4-6.9) x10^3/uL Basophils # (0-0.4) x10^3/uL Sodium 135 L (137-145) mmol/L Potassium 4.0 (3.5-5.1) mmol/L Chloride 112 H (98-107) mmol/L Carbon Dioxide 13 L* (22-30) mmol/L Anion Gap 14.7 (5-15) MEQ/L BUN 18 H (7-17) mg/dL Creatinine 0.65 (0.52-1.04) mg/dL Estimated GFR 109.9 ML/MIN Glucose 93 (74-106) mg/dL Calcium 9.1 (8.4-10.2) mg/dL Total Bilirubin 0.60 (0.2-1.3) mg/dL AST 27 (14-36) U/L ALT 32 (0-35) U/L Alkaline Phosphatase 105 (38-126) U/L Serum Total Protein 7.8 (6.3-8.2) g/dL Albumin 4.4 (3.5-5.0) g/dL Lipase 116 (23-300) U/L Urine Color (Yellow) Urine Appearance (Clear) Urine pH (4.6-8.0) Ur Specific [place] (1.005-1.030) Urine Protein (Negative) Urine Glucose (UA) (Negative) mg/dL Urine Ketones (Negative) Urine Blood (Negative) Urine Nitrite (Negative) Urine Bilirubin (Negative) Urine Urobilinogen (0.2) mg/dL Ur Leukocyte Esterase (Negative) U Hyaline Cast (Auto) (0-2) /LPF Urine Microscopic RBC (0-5) /HPF Urine Microscopic WBC (0-5) /HPF Ur Epithelial Cells (None Seen) /HPF Urine Bacteria (None Seen) /HPF Urine Culture Reflexed (NO) Urine HCG, Qual NEGATIVE (NEGATIVE) 04/20/23 04/20/23 Range/Units 18:25 17:48 WBC 16.0 H (4.0-10.5) x10^3/uL RBC 3.98 L (4.1-5.4) x10^6/uL Hgb 12.7 (12.0-16.0) g/dL Hct 40.5 (35-47) % MCV 101.8 H (78-100) fL MCH 31.9 (26-32) pg MCHC 31.4 L (32-36) g/dL RDW 13.3 (11.5-14.0) % Plt Count 396 (150-450) x10^3/uL MPV 8.7 (7.5-11.0) fL Gran % 79.1 H (36.0-66.0) % Immature Gran % (Auto) 0.3 (0.00-0.4) % Nucleat RBC Rel Count 0.0 (0.00-0.1) % Eos # (Auto) 0.70 H (0-0.5) x10^3/uL Immature Gran # (Auto) 0.05 H (0.00-0.03) x10^3u/L Absolute Lymphs (auto) 1.86 (1.0-4.6) x10^3/uL Absolute Monos (auto) 0.70 (0.0-1.3) x10^3/uL Absolute Nucleated RBC 0.00 (0.00-0.01) x10^3u/L Lymphocytes % 11.6 L (24.0-44.0) % Monocytes % 4.4 (0.0-12.0) % Eosinophils % 4.4 (0.00-5.0) % Basophils % 0.2 (0.0-0.4) % Absolute Granulocytes 12.65 H (1.4-6.9) x10^3/uL Basophils # 0.03 (0-0.4) x10^3/uL Sodium (137-145) mmol/L Potassium (3.5-5.1) mmol/L Chloride (98-107) mmol/L Carbon Dioxide (22-30) mmol/L Anion Gap (5-15) MEQ/L BUN (7-17) mg/dL Creatinine (0.52-1.04) mg/dL Estimated GFR ML/MIN Glucose (74-106) mg/dL Calcium (8.4-10.2) mg/dL Total Bilirubin (0.2-1.3) mg/dL AST (14-36) U/L ALT (0-35) U/L Alkaline Phosphatase (38-126) U/L Serum Total Protein (6.3-8.2) g/dL Albumin (3.5-5.0) g/dL Lipase (23-300) U/L Urine Color [place] A (Yellow) Urine Appearance Cloudy A (Clear) Urine pH 6.0 (4.6-8.0) Ur Specific [place] 1.020 (1.005-1.030) Urine Protein 30 (Negative) Urine Glucose (UA) Negative (Negative) mg/dL Urine Ketones Trace A (Negative) Urine Blood Large A (Negative) Urine Nitrite Negative (Negative) Urine Bilirubin Negative (Negative) Urine Urobilinogen 1.0 A (0.2) mg/dL Ur Leukocyte Esterase Moderate A (Negative) U Hyaline Cast (Auto) 3-5 A (0-2) /LPF Urine Microscopic RBC >100 A (0-5) /HPF Urine Microscopic WBC 21-50 A (0-5) /HPF Ur Epithelial Cells Few (None Seen) /HPF Urine Bacteria Few A (None Seen) /HPF Urine Culture Reflexed YES (NO) Urine HCG, Qual (NEGATIVE) - Progress Progress: improved Progress Note: 04/20/23 21:02 48 years old is evaluated in the ER for right flank pain with vomiting and diarrhea for a couple of days. She is given fluids and symptomatic treatment, on reevaluation she is feeling much better. Workup showed white count of 16, chemistry profile consistent with dehydration with low bicarb. She has received fluids. Obtain CT abdomen pelvis without contrast which showed hepatomegaly, no acute finding in the right ascending colon/transverse colon or any other acute abdominal pelvic findings. She does have UTI and given dose of Rocephin and will continue with cefpodoxime to go home. I do not know the exact cause of her right-sided pain could be secondary to her chronic hepatomegaly versus gastroenteritis related issues. Elevated white count could be from gastroenteritis related. Will give her Zofran as well. On reevaluation patient is feeling much better with no peritoneal signs and able to ambulate in the ER without any limitations. I do not think patient needs to be admitted, counseled on increase hydration and outpatient follow-up. Discussed signs symptoms of worsening needing return to ER which she seems understanding. Stable for tao rodriguez. Counseled pt/family regarding: lab results, diagnosis, need for follow-up, rad results Medical Desision Making - Independent Historian Additional History obtained from: Spouse - Diagnostic Testing Diagnostic test were ordered, analyzed, and reviewed by me: Yes Radiological Interpretation: Reviewed by me, Teleradiologist Report - Risk of complications The pt has a mod risk of morbidity or mortality based on: Need for prescription drug management - Departure Departure Disposition: Home Clinical Impression: Acute UTI, Right sided abdominal pain, Hepatomegaly Condition: Stable Critical Care Time: No Referrals: GASTON CAMPUZANO [Primary Care Provider] - Follow up with PCP 1 day Instructions: Flank Pain, Urinary Tract Infection, Adult (DC) Additional Instructions: Take Tylenol as needed. Follow-up with primary care for reevaluation may need follow-up with gastroenterology for enlarged liver. Drink plenty of fluids to keep yourself well-hydrated. Return to ER for intractable abdominal pain/nausea vomiting/fever chills etc. Prescriptions: Cefpodoxime Proxetil 200 mg [Vantin 200 mg] 200 mg PO BID 7 Days #14 tablet Ondansetron ODT 4 MG [Zofran Odt 4 mg] 1 ea PO QIDPRN PRN #7 tablet PRN Reason: n/v
[2023-04-20 18:36] LABS: ADD URINE CULTURE? YES (NO)
[2023-04-20 18:45] LABS: ALBUMIN 4.4 g/dL (3.5-5.0); ANION GAP 14.7 MEQ/L (5-15); BILIRUBIN,TOTAL 0.6 mg/dL (0.2-1.3); Calcium 9.1 mg/dL (8.4-10.2); Creatinine 1 0.65 mg/dL (0.52-1.04); EST GLOMERULAR FILTRATION RATE 109.9 ML/MIN; Total Protein 7.8 g/dL (6.3-8.2)
[2023-04-20] MEDS ORDERED: MORPHINE SULFATE 4 MG INJ IV ONE (18:46)
[2023-04-20] MEDS ORDERED: Sodium Chloride 0.9% 1000 ML 1,000 ML IV STA (18:46)
[2023-04-20] MEDS ORDERED: Zofran 4 MG/2 ML VIAL IV ONE (18:46)
[2023-04-20 18:55] LABS: HCG URINE TEST NEGATIVE (NEGATIVE)
[2023-04-20] MEDS ORDERED: Zofran 4 MG/2 ML VIAL ONE (19:12)
[2023-04-20] MEDS ORDERED: Sodium Chloride 0.9% 1000 ML 1,000 ML ONE (19:13)
[2023-04-20] MEDS ORDERED: MORPHINE SULFATE 4 MG INJ ONE (19:13)
[2023-04-20] MEDS ORDERED: ROCEPHIN 2 Gm-D5w 50ML BAG** 2 G/50 ML IVPB IV STA (19:37)
[2023-04-20] MEDS ORDERED: ROCEPHIN 2 Gm-D5w 50ML BAG** 2 G/50 ML IVPB IV ONE (19:41)
--- NOTE | 2023-04-20 20:28 | XRAY ---
CLINICAL HISTORY:RIGHT SIDE PAIN COMPARISON:08/02/2022 TECHNIQUE:A CT scan of the abdomen and pelvis was performed without IV contrast. Coronal and sagittal reconstructive images were also obtained. FINDINGS: Abdomen: The liver is markedly enlarged measuring 26.3 cm craniocaudally. No diffuse or focal parenchymal abnormality. The portal vein, intrahepatic biliary radicals, and the bile ducts are normal. The spleen is normal in size. Multiple small calcifications are scattered in the parenchyma. The pancreas and adrenal glands are unremarkable. The right kidney is not visualized, which may be congenitally or surgically absent. The left kidney is enlarged with a craniocaudal diameter of 15.5 cm. It is normal in shape. Multiple small calculi are seen in the calyces, with the largest measuring 4.1 mm in the inferior calyx. No cysts, mass, or hydronephrosis. The gallbladder is surgically absent. Surgical clips are seen within the gallbladder fossa. The ascending colon, the descending colon, visualized small bowel loops are unremarkable. The appendix could not be visualized due to closely approximated bowel loops in the abdomen and lack of contrast, however, no inflammatory changes noted in the right iliac fossa region. There is no evidence of significant enlargement of the mesenteric or retroperitoneal lymph nodes. Pelvis: The urinary bladder is unremarkable. The uterus is not visualized and may be surgically absent. The pelvic vasculature is unremarkable. No evidence of pelvic lymphadenopathy. There are several linear to ovoid-like radio-opaque foci within the pelvic cavity. Small round calcifications are also seen. There are degenerative osseous changes in the spine. Grade 1 anterolisthesis of L4 over L5 is noted. There is a suggestion of disc bulges at L4-L5 and L5-S1 levels. IMPRESSION: 1. Hepatomegaly measuring 26.3 cm craniocaudally 2. Splenic calcifications 3. Absent right kidney, for clinical correlation 4. Enlarged left kidney, with multiple tiny non-obstructing nephrolithiases 5. Several linear to ovoid-like radio-opaque foci within the pelvic cavity, to consider surgical clips. Clinical/surgical correlation suggested. 6. Grade 1 anterolisthesis of L4 over L5 7. Suggestion of disc bulges at L4-L5 and L5-S1 levels 8. Rest of the findings as detailed above. 9. No significant interval change from the prior study. Electronically Signed by: Daniel Nj MD. (04/20/2023 20:23:02 EST)
[2023-04-20] MEDS ORDERED: NORCO 5/325 MG PO ONE (21:01)
[2023-04-20] MEDS ORDERED: NORCO 5/325 MG ONE (21:05)
[2023-04-20 21:07] VITALS: O2SAT 99
[2023-04-20 21:12] VITALS: BP 124/105; PULSE 84; RESP 18
== END 2023-04-20 21:29 | disposition home or self-care (01) ==
LOC: ED 17:15
DX: N39.0 Urinary tract infection, site not specified (principal); R10.11 Right upper quadrant pain; R10.31 Right lower quadrant pain; R16.0 Hepatomegaly, not elsewhere classified; R11.2 Nausea with vomiting, unspecified; R19.7 Diarrhea, unspecified; R53.1 Weakness; R53.83 Other fatigue; Z28.310 Unvaccinated for COVID-19
CPT/HCPCS: 36000; 36415; 74176; 80053; 81001; 81025; 83690; 85025; 87086; 96360; 96361; 96374; 96375; 99284; J0696; J2270; J2405; A9270-GY

== ENCOUNTER 2023-04-25 12:16 | Emergency (ER) | payer OTHER ==
[2023-04-25 12:42] VITALS: PULSE 105; RESP 18; TEMP 97.6
[2023-04-25] MEDS ORDERED: Hydromorphone 1 mg/ml Injection IV ONE (12:55)
[2023-04-25] MEDS ORDERED: Sodium Chloride 0.9% 1000 ML 1,000 ML IV STA (12:55)
[2023-04-25] MEDS ORDERED: Reglan 10 MG/2 ML IV ONE (12:55)
[2023-04-25] MEDS ORDERED: Sodium Chloride 0.9% 1000 ML 1,000 ML ONE (13:19)
[2023-04-25] MEDS ORDERED: Reglan 10 MG/2 ML ONE (13:19)
[2023-04-25] MEDS ORDERED: Hydromorphone 1 mg/ml Injection ONE (13:19)
[2023-04-25 13:33] LABS: BASOPHIL % 0.2 % (0.0-0.4); Basophil (Absolute #) 0.02 x10^3/uL (0-0.4); Eosinophil % 4.6 % (0.00-5.0); Eosinophil (Absolute #) 0.47 x10^3/uL (0-0.5); Hematocrit 44.4 % (35-47); Hemoglobin 14.4 g/dL (12.0-16.0); IMMATURE GRAN # 0.03 x10^3u/L (0.00-0.03); IMMATURE GRAN % 0.3 % (0.00-0.4); Lymphocyte (Absolute #) 2.72 x10^3/uL (1.0-4.6); Lymphocytes % 26.7 % (24.0-44.0); Mean Corpuscular Hemoglobin 31.8 pg (26-32); Mean Corpuscular Hgb Concent. 32.4 g/dL (32-36); Mean Platelet Volume 9.3 fL (7.5-11.0); Monocyte (Absolute #) 0.74 x10^3/uL (0.0-1.3); Monocytes % 7.3 % (0.0-12.0); Neutrophil % 60.9 % (36.0-66.0); Platelet Count 544 x10^3/uL (150-450); Red Blood Count 4.53 x10^6/uL (4.1-5.4); Red Cell Distribution Width 13.2 % (11.5-14.0); White Blood Count 10.2 x10^3/uL (4.0-10.5)
[2023-04-25 13:42] LABS: Appearance Clear (Clear); Bacteria None Seen /HPF (None Seen); Bilirubin Negative (Negative); Blood Negative (Negative); Epithelial Cells Rare /HPF (None Seen); Glucose, Urine Negative (Negative); Ketones Trace (Negative); Leukocyte Esterase Negative (Negative); Nitrite Negative (Negative); Ph 5.5 (4.6-8.0); Protein,Urine Dip 30 (Negative); RBC 0-2 /HPF (0-5); Specific Gravity >=1.030 (1.005-1.030)
[2023-04-25 13:43] LABS: ADD URINE CULTURE? ORDERED SEPARATELY (NO)
[2023-04-25 13:49] LABS: ALBUMIN 3.9 g/dL (3.5-5.0); ANION GAP 12.2 MEQ/L (5-15); BILIRUBIN,TOTAL 1.2 mg/dL (0.2-1.3); Calcium 9.1 mg/dL (8.4-10.2); Creatinine 1 2.17 mg/dL (0.52-1.04); EST GLOMERULAR FILTRATION RATE 27.8 ML/MIN; Potassium 4.1 mmol/L (3.5-5.1); Total Protein 7.1 g/dL (6.3-8.2)
[2023-04-25 13:50] VITALS: BP 112/86; O2SAT 96
[2023-04-25 13:52] LABS: Amphetamine,Urine NEGATIVE (NEGATIVE); Barbiturate,Urine NEGATIVE (NEGATIVE); Benzodiazepine,Urine NEGATIVE (NEGATIVE); Cocaine,Urine NEGATIVE (NEGATIVE); Methadone,Urine NEGATIVE (NEGATIVE); Opiate,Urine NEGATIVE (NEGATIVE); PCP,Urine NEGATIVE (NEGATIVE); THC,Urine NEGATIVE (NEGATIVE)
--- NOTE | 2023-04-25 13:57 | XRAY ---
Indication: Flank pain. Multiple contiguous axial images obtained through the abdomen and pelvis without contrast using renal stone protocol. Comparison: April 20, 2023. Lung bases remain clear again with incidental left base and distal paraesophageal calcified granulomas. Heart not enlarged. Left kidney again demonstrates 3 nonobstructing punctate calculi, largest 3 mm. Again congenitally absent right kidney, IVC duplication, splenic calcified granulomas, cholecystectomy, and hysterectomy. Noncontrasted stomach and bowel loops nonobstructed again with intact sigmoid anastomosis. Again mild diffuse scattered colonic fecal debris throughout. No free fluid/air. Remaining liver, pancreas, spleen, adrenal glands, left kidney, left ureter, and bladder are unremarkable for noncontrast exam. Stable minimal aortoiliac calcification without AAA. Impression: No change compared to ER CT exam 5 days ago. Again mild diffuse fecal stasis, nonobstructing left renal micro-calculi, congenitally absent right kidney, IVC duplication, arteriosclerotic disease, and old granulomatous disease. No new/acute findings.
--- NOTE | 2023-04-25 14:28 | ERPHSYRPT ---
- History of Present Illness Time Seen by Provider: 04/25/23 12:40 Source: patient, family Exam Limitations: no limitations Patient Subjective Stated Complaint: UTI Triage Nursing Assessment: Patient ambulated back to ED and transfered self to bed. Patient A+O x3. Pateitn's skin pink, warm and dry. Patient states she was dx with UTI on 04/20/2023 and sent home with PO vantin and nausea. Patient complains of lower abdominal, dysuria, frequency, urgency for several days. Urine noted to be dark julianne. Physician History: Patient is a 48-year-old white female who on 04 20 was diagnosed with a urinary tract infection and started on Vantin and given Zofran for nausea. She returns today saying she is no better review of her previous urine cultures on every occasion shows more than 3 pathogens and therefore no cultures or sensitivities have been done. Timing/Duration: constant Activites at Onset: none Quality: burning, cramping Onset Location: pelvic pain Pain Radiation: suprapubic Severity of Pain-Max: moderate Severity of Pain-Current: moderate Sexual intercourse history: non-contributory Modifying Factors: Improves With: urinating Associated Symptoms: abdominal pain, nausea, dysuria, nocturia, polyuria, urinary frequency Allergies/Adverse Reactions: Sulfa (Sulfonamide Antibiotics) Allergy (Intermediate, Verified 04/25/23 12:36) Vomiting ketorolac [From Toradol] Allergy (Unknown, Verified 04/25/23 12:36) bee venom protein (honey bee) Allergy (Verified 04/25/23 12:36) methylprednisolone [From Solu-Medrol] Allergy (Verified 04/25/23 12:36) anger can take oral steroids, IV steroids she cannot take -- states she gets "roid rage" sumatriptan [From Imitrex] Allergy (Verified 04/25/23 12:36) nitrofurantoin [From Macrobid] Adverse Reaction (Verified 04/25/23 12:36) tramadol Adverse Reaction (Verified 04/25/23 12:36) Nausea flu vaccine Allergy (Intermediate, Uncoded 04/25/23 12:36) Hoarseness of voice Hx Tetanus, Diphtheria Vaccination/Date Given: Yes Hx Influenza Vaccination/Date Given: No Hx Pneumococcal Vaccination/Date Given: No Travel Risk - International Travel Have you traveled outside of the country in past 3 weeks: No - Coronavirus Screening Are you exhibiting any of the following symptoms?: No Close contact with a COVID-19 positive Pt in past 14-21 Days: No - Vaccine Status Have you recieved a Covid-19 vaccination: No - Review of Systems Constitutional: No Fever, No Chills Eyes: No Symptoms Ears, Nose, & Throat: No Symptoms Respiratory: No Cough, No Dyspnea Cardiac: No Chest Pain, No Edema, No Syncope Abdominal/Gastrointestinal: No Abdominal Pain, No Nausea, No Vomiting, No Diarr hea Genitourinary Symptoms: Dysuria, Frequency, Hematuria, Urgency Musculoskeletal: No Back Pain, No Neck Pain Skin: No Rash Neurological: No Dizziness, No Focal Weakness, No Sensory Changes Psychological: No Symptoms Endocrine: No Symptoms All Other Systems: Reviewed and Negative - Past Medical History Pertinent Past Medical History: Yes Neurological History: Migraines ENT History: No Pertinent History Cardiac History: No Pertinent History Respiratory History: No Pertinent History Endocrine Medical History: No Pertinent History Musculoskeletal History: Fibromyalgia GI Medical History: Gallbladder Disease, Other History: Other Psycho-Social History: Bipolar Female Reproductive Disorders: Other Other Medical History: kidney stones, born with 1 kidney (left only) - Past Surgical History Past Surgical History: Yes Neuro Surgical History: No Pertinent History Cardiac: No Pertinent History Respiratory: No Pertinent History Gastrointestinal: Bowel Surgery, Cholecystectomy Genitourinary: No Pertinent History Musculoskeletal: No Pertinent History Female Surgical History: Hysterectomy, Section, Tubal Ligation Other Surgical History: skin cancer removed twice, Umbilical hernia repair. ruptured hernia- colostomy and reversal - Social History Smoking Status: Never smoker How long have you smoked: 20yrs Exposure to second hand smoke: No Drug Use: none Patient Lives Alone: No Significant Family History: no pertinent family hx - Female History Hx Last Menstrual Period: hysterectomy Hx Now: No - Nursing Vital Signs Nursing Vital Signs: Initial Vital Signs Temperature 97.6 F 04/25/23 12:37 Pulse Rate 105 H 04/25/23 12:37 Respiratory Rate 18 04/25/23 12:37 Blood Pressure 126/99 04/25/23 12:37 O2 Sat by Pulse Oximetry 99 04/25/23 12:37 Pain Scale Pain Intensity 10 - Physical Exam General Appearance: mild distress, alert Eye Exam: PERRL/EOMI, eyes nml inspection Ears, Nose, Throat Exam: normal ENT inspection, TMs normal, pharynx normal, moist mucous membranes Neck Exam: normal inspection, non-tender, supple, full range of motion Respiratory Exam: normal breath sounds, lungs clear, No respiratory distress Cardiovascular Exam: regular rate/rhythm, normal heart sounds, normal peripheral pulses Gastrointestinal/Abdomen Exam: soft, No tenderness, No mass Back Exam: normal inspection, normal range of motion, No CVA tenderness, No vertebral tenderness Extremity Exam: normal inspection, normal range of motion, pelvis stable Neurologic Exam: alert, oriented x 3, 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, 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, nor mal mood/affect, sensation nml, No motor deficits Skin Exam: normal color, warm, dry Lymphatic Exam: No adenopathy SpO2: 96 - Course Nursing assessment & vital signs reviewed: Yes - CT Exams Abdomen/Pelvis CT Interpretation: Negative Ordered Tests: Active Orders 24 hr Category Date Time Status IV Insertion STAT Care 04/25/23 12:55 Active ABDOMEN AND PELVIS W/0 CONTRAS [CT] Stat Exams 04/25/23 12:56 Completed CBC W DIFF Stat Lab 04/25/23 13:25 Completed CMP Stat Lab 04/25/23 13:25 Completed CULTURE,URINE Stat Lab 04/25/23 13:17 Received LIPASE Stat Lab 04/25/23 13:25 Completed Lactic Acid Stat Lab 04/25/23 13:14 Completed UA W/RFX UR CULTURE Stat Lab 04/25/23 13:17 Completed Urine Triage Profile Stat Lab 04/25/23 13:17 Completed Medication Summary Discontinued Medications Generic Name Dose Route Start Last Admin Trade Name Freq PRN Reason Stop Dose Admin Hydromorphone HCl 1 mg 04/25/23 12:55 04/25/23 13:21 Hydromorphone 1 Mg/1ml Inj IV 04/25/23 12:56 1 mg STAT ONE Administration Hydromorphone HCl Confirm 04/25/23 13:19 Hydromorphone 1 Mg/1ml Inj Administered 04/25/23 13:20 Dose 1 mg .ROUTE .STK-MED ONE Sodium Chloride 1,000 mls @ 999 mls/hr 04/25/23 12:55 04/25/23 13:21 Sodium Chloride 0.9% 1000 Ml IV 04/25/23 13:55 999 mls/hr .Q1H1M STA Administration Sodium Chloride Confirm 04/25/23 13:19 Sodium Chloride 0.9% 1000 Ml Administered 04/25/23 13:20 Dose 1,000 mls @ ud .ROUTE .STK-MED ONE Metoclopramide HCl 10 mg 04/25/23 12:55 04/25/23 13:20 Metoclopramide Hcl 10 Mg/2 Ml Vial IV 04/25/23 12:56 10 mg STAT ONE Administration Metoclopramide HCl Confirm 04/25/23 13:19 Metoclopramide Hcl 10 Mg/2 Ml Vial Administered 04/25/23 13:20 Dose 10 mg .ROUTE .STK-MED ONE Lab/Rad Data: Laboratory Result Diagrams 04/25/23 13:25 04/25/23 13:25 Laboratory Results 04/25/23 04/25/23 04/25/23 Range/Units 13:25 13:25 13:17 WBC 10.2 (4.0-10.5) x10^3/uL RBC 4.53 (4.1-5.4) x10^6/uL Hgb 14.4 (12.0-16.0) g/dL Hct 44.4 (35-47) % MCV 98.0 (78-100) fL MCH 31.8 (26-32) pg MCHC 32.4 (32-36) g/dL RDW 13.2 (11.5-14.0) % Plt Count 544 H (150-450) x10^3/uL MPV 9.3 (7.5-11.0) fL Gran % 60.9 (36.0-66.0) % Immature Gran % (Auto) 0.3 (0.00-0.4) % Nucleat RBC Rel Count 0.0 (0.00-0.1) % Eos # (Auto) 0.47 (0-0.5) x10^3/uL Immature Gran # (Auto) 0.03 (0.00-0.03) x10^3u/L Absolute Lymphs (auto) 2.72 (1.0-4.6) x10^3/uL Absolute Monos (auto) 0.74 (0.0-1.3) x10^3/uL Absolute Nucleated RBC 0.00 (0.00-0.01) x10^3u/L Lymphocytes % 26.7 (24.0-44.0) % Monocytes % 7.3 (0.0-12.0) % Eosinophils % 4.6 (0.00-5.0) % Basophils % 0.2 (0.0-0.4) % Absolute Granulocytes 6.20 (1.4-6.9) x10^3/uL Basophils # 0.02 (0-0.4) x10^3/uL Sodium 136 L (137-145) mmol/L Potassium 4.1 (3.5-5.1) mmol/L Chloride 102 (98-107) mmol/L Carbon Dioxide 25 (22-30) mmol/L Anion Gap 12.2 (5-15) MEQ/L BUN 29 H (7-17) mg/dL Creatinine 2.17 H (0.52-1.04) mg/dL Estimated GFR 27.8 ML/MIN Glucose 88 (74-106) mg/dL Lactic Acid (0.4-2.0) Calcium 9.1 (8.4-10.2) mg/dL Total Bilirubin 1.20 (0.2-1.3) mg/dL AST 46 H (14-36) U/L ALT 21 (0-35) U/L Alkaline Phosphatase 71 (38-126) U/L Serum Total Protein 7.1 (6.3-8.2) g/dL Albumin 3.9 (3.5-5.0) g/dL Lipase 101 (23-300) U/L Urine Color (Yellow) Urine Appearance (Clear) Urine pH (4.6-8.0) Ur Specific [place] (1.005-1.030) Urine Protein (Negative) Urine Glucose (UA) (Negative) mg/dL Urine Ketones (Negative) Urine Blood (Negative) Urine Nitrite (Negative) Urine Bilirubin (Negative) Urine Urobilinogen (0.2) mg/dL Ur Leukocyte Esterase (Negative) U Hyaline Cast (Auto) (0-2) /LPF Urine Microscopic RBC (0-5) /HPF Urine Microscopic WBC (0-5) /HPF Ur Epithelial Cells (None Seen) /HPF Urine Bacteria (None Seen) /HPF Urine Culture Reflexed (NO) Urine Opiates Level NEGATIVE (NEGATIVE) Ur Methadone NEGATIVE (NEGATIVE) Urine Barbiturates NEGATIVE (NEGATIVE) Ur Phencyclidine (PCP) NEGATIVE (NEGATIVE) Urine Amphetamine NEGATIVE (NEGATIVE) U Benzodiazepine Level NEGATIVE (NEGATIVE) Urine Cocaine NEGATIVE (NEGATIVE) Urine Marijuana (THC) NEGATIVE (NEGATIVE) 04/25/23 04/25/23 Range/Units 13:17 13:14 WBC (4.0-10.5) x10^3/uL RBC (4.1-5.4) x10^6/uL Hgb (12.0-16.0) g/dL Hct (35-47) % MCV (78-100) fL MCH (26-32) pg MCHC (32-36) g/dL RDW (11.5-14.0) % Plt Count (150-450) x10^3/uL MPV (7.5-11.0) fL Gran % (36.0-66.0) % Immature Gran % (Auto) (0.00-0.4) % Nucleat RBC Rel Count (0.00-0.1) % Eos # (Auto) (0-0.5) x10^3/uL Immature Gran # (Auto) (0.00-0.03) x10^3u/L Absolute Lymphs (auto) (1.0-4.6) x10^3/uL Absolute Monos (auto) (0.0-1.3) x10^3/uL Absolute Nucleated RBC (0.00-0.01) x10^3u/L Lymphocytes % (24.0-44.0) % Monocytes % (0.0-12.0) % Eosinophils % (0.00-5.0) % Basophils % (0.0-0.4) % Absolute Granulocytes (1.4-6.9) x10^3/uL Basophils # (0-0.4) x10^3/uL Sodium (137-145) mmol/L Potassium (3.5-5.1) mmol/L Chloride (98-107) mmol/L Carbon Dioxide (22-30) mmol/L Anion Gap (5-15) MEQ/L BUN (7-17) mg/dL Creatinine (0.52-1.04) mg/dL Estimated GFR ML/MIN Glucose (74-106) mg/dL Lactic Acid 1.1 (0.4-2.0) Calcium (8.4-10.2) mg/dL Total Bilirubin (0.2-1.3) mg/dL AST (14-36) U/L ALT (0-35) U/L Alkaline Phosphatase (38-126) U/L Serum Total Protein (6.3-8.2) g/dL Albumin (3.5-5.0) g/dL Lipase (23-300) U/L Urine Color Yellow (Yellow) Urine Appearance Clear (Clear) Urine pH 5.5 (4.6-8.0) Ur Specific [place] >=1.030 A (1.005-1.030) Urine Protein 30 (Negative) Urine Glucose (UA) Negative (Negative) mg/dL Urine Ketones Trace A (Negative) Urine Blood Negative (Negative) Urine Nitrite Negative (Negative) Urine Bilirubin Negative (Negative) Urine Urobilinogen 1.0 A (0.2) mg/dL Ur Leukocyte Esterase Negative (Negative) U Hyaline Cast (Auto) 3-5 A (0-2) /LPF Urine Microscopic RBC 0-2 (0-5) /HPF Urine Microscopic WBC 3-5 (0-5) /HPF Ur Epithelial Cells Rare (None Seen) /HPF Urine Bacteria None Seen (None Seen) /HPF Urine Culture Reflexed ORDERED SEPARATELY (NO) Urine Opiates Level (NEGATIVE) Ur Methadone (NEGATIVE) Urine Barbiturates (NEGATIVE) Ur Phencyclidine (PCP) (NEGATIVE) Urine Amphetamine (NEGATIVE) U Benzodiazepine Level (NEGATIVE) Urine Cocaine (NEGATIVE) Urine Marijuana (THC) (NEGATIVE) - Progress Progress: improved Air Movement: good Blood Culture(s) Obtained: No Antibiotics given: Yes Medical Desision Making - Independent Historian Additional History obtained from: Spouse - Diagnostic Testing Diagnostic test were ordered, analyzed, and reviewed by me: Yes Radiological Interpretation: Reviewed by me - Risk of complications Low Risk: Low risk of morbidity from additional dx testing or treatment - Departure Departure Disposition: Home Clinical Impression: Dysuria Condition: Stable Critical Care Time: No Referrals: GASTON CAMPUZANO [Primary Care Provider] - Follow up/PCP as directed Instructions: Urinary Tract Infection, Adult (DC) Prescriptions: Ciprofloxacin [Cipro 500 MG] 500 mg PO BID #14 tablet
== END 2023-04-25 14:43 | disposition home or self-care (01) ==
LOC: ED 12:16
DX: R30.0 Dysuria (principal); R10.2 Pelvic and perineal pain; Z28.310 Unvaccinated for COVID-19
CPT/HCPCS: 36000; 36415; 74176; 80053; 80307; 81001; 83605; 83690; 85025; 87086; 87186; 96360; 96374; 96375; 99284; J1170

== ENCOUNTER 2023-06-22 11:07 | Emergency (ER) | payer OTHER ==
[2023-06-22] MEDS ORDERED: Sodium Chloride 0.9% 1000 ML 1,000 ML ONE (11:23)
[2023-06-22 11:26] LABS: A-aADO2 62; ABG HEMOGLOBIN 14.6; ARTERIAL BLOOD GAS BASE EXCESS -10.7 (-2.0-2.0); ARTERIAL BLOOD GAS FIO2 28 %; ARTERIAL BLOOD GAS PCO2 37 mmHg (35-45); ARTERIAL BLOOD GAS PO2 91 mmHg (75-100); CARBOXYHEMOGLOBIN 0.7 % THgb (0.0-6.9); HCO3- 15.9 (22-28); HGB O2 SAT 96.3 g/dF (94-100); paO2 pAO1 0.59
[2023-06-22 11:27] LABS: ABG POTASSIUM 2.7 (3.5-5.1); ABG SITE LEFT BRACHIAL; ARTERIAL BLOOD GAS pH 7.24 (7.35-7.45)
[2023-06-22] MEDS ORDERED: Sodium Chloride 100ML MINI-BAG PLUS 100 ML IV ONE (11:47)
[2023-06-22] MEDS ORDERED: Merrem IV ONE (11:47)
[2023-06-22] MEDS ORDERED: Lactated Ringers 1,000 ML IV ONE ×2 (11:47→13:53)
[2023-06-22] MEDS: Merrem 1 GM in Sodium Chloride 100ML MINI-BAG PLUS 100 ML IV STA (11:51)
[2023-06-22] MEDS: Lactated Ringers 1,000 ML IV SCH (11:52)
[2023-06-22 12:09] VITALS: TEMP 99.5
--- NOTE | 2023-06-22 12:21 | XRAY ---
CLINICAL HISTORY: found semiconscious at home TECHNIQUE: Axial non-contrast CT scan of the brain was performed from the skull base to the high parietal region. Coronal and sagittal reconstructions were also obtained. DLP 1016.25 mGy*cm COMPARISON: Compared to the previous CT head dated 03/14/2023. FINDINGS: The visualized brain parenchyma shows a normal appearance. Ventura-white matter differentiation is maintained. No midline shifts or deformity. No intracerebral or extra axial hematoma. Normal size and configuration of the cerebral ventricles. Normal CT appearance of the posterior fossa structures namely the cerebellar hemispheres, brainstem, and cerebellar peduncles. The IACs are unremarkable. The cerebello-pontine angles are clear. The osseous structures in the skull base are unremarkable. No definite calvarium fractures. Mucosal opacification of ethmoid sinus. Otherwise, the rest of the scanned paranasal sinuses are clear. IMPRESSION: 1. No appreciable changes are depicted. 2. CT study for the brain is unremarkable. 3. Redemonstration of the mild ethmoidal sinusitis, otherwise, unremarkable sinuses. 4. Please note that CT may not delineate ischemia in early stages, accordingly would advise MRI with DWI/ADC if clinically indicated. Compared to the previous CT head dated 03/14/2023: Electronically Signed by: Daniel Nj MD. (06/22/2023 12:17:22 EST)
--- NOTE | 2023-06-22 12:33 | ERPHSYRPT ---
- History of Present Illness Time Seen by Provider: 06/22/23 12:28 Source: family Exam Limitations: clinical condition Patient Subjective Stated Complaint: PT BROUGHT IN CAR WITH SPOUSE FOR POSSIBLE OVERDOSE, PT HAS HX OF DRUG USE. SPOUSE IS UNSURE IF SHE IS USING METH, HE WOR[place] OF TOWN. HE DOES STATE WHEN HE CAME HOME HE HAD APPROX 25 NUCYNTA MISSING ON FRIDAY NIGHT. HE STATES SHE HAS BEEN CONSFUSED,LETHERGIC AND FALLING FOR LAST 4 DAYS, HE STATES SHE HAS FALLING AND HIT HER HEAD ON TUB. Triage Nursing Assessment: PT CARRIED FROM CAR TO AND THEN PLACED IN BED, SHE IS UNRESPONSIVE WITH EYES OPEN, PUPILS SLOW TO RESPOND, 1MM,RESPONDS TO DDEP PAIN ONLY. HAS ABRASON AND HEMATOMA TO LEFT SIDE OF FOREHEAD WITH BRUISING TO RIGHT SIDE OF FOREHEAD, SHE HAS MULTI SCABS AND ABRASIONS TO ARMS, THIGHS AND FEET, REDNESS TO BOTH KNEES.PT WAS MOTTLED TO LOWER LEGS ON ARRIVAL, BOTTOM OF TOES COLD AND BLACK IN COLOR. CRACKELS HEARD IN UPPER BASES,ABD SOFT WITH BS HEARD, Physician History: Patient is 48-year-old female with significant past medical history of polysubstance abuse, history of one kidney, found unresponsive by her at home. 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 When patient was put on room patient was brought able to answer, patient was very lethargic and breathing heavy. Patient has a multiple bruises all over the body including head. Due to patient condition unable to get any further history but states that patient is on the same time and 40 tablets of Nucynta are missing for last 4 days. Patient's is also not sure she might have used some other drugs also. Allergies/Adverse Reactions: Sulfa (Sulfonamide Antibiotics) Allergy (Intermediate, Verified 06/22/23 11:13) Vomiting ketorolac [From Toradol] Allergy (Unknown, Verified 06/22/23 11:13) bee venom protein (honey bee) Allergy (Verified 06/22/23 11:13) methylprednisolone [From Solu-Medrol] Allergy (Verified 06/22/23 11:13) anger can take oral steroids, IV steroids she cannot take -- states she gets "roid rage" sumatriptan [From Imitrex] Allergy (Verified 06/22/23 11:13) nitrofurantoin [From Macrobid] Adverse Reaction (Verified 06/22/23 11:13) tramadol Adverse Reaction (Verified 06/22/23 11:13) Nausea flu vaccine Allergy (Intermediate, Uncoded 06/22/23 11:13) Hoarseness of voice Hx Tetanus, Diphtheria Vaccination/Date Given: Yes Hx Influenza Vaccination/Date Given: No Hx Pneumococcal Vaccination/Date Given: No Immunizations Up to Date: Yes Travel Risk - International Travel Have you traveled outside of the country in past 3 weeks: No - Coronavirus Screening Are you exhibiting any of the following symptoms?: No - Vaccine Status Have you recieved a Covid-19 vaccination: No - Review of Systems Constitutional: Fever, Lethargy, Weakness Hematologic/Lymphatic: Easy Bruising All Other Systems: Unable due to condition - Past Medical History Pertinent Past Medical History: Yes Neurological History: Migraines ENT History: No Pertinent History Cardiac History: No Pertinent History Respiratory History: No Pertinent History Endocrine Medical History: No Pertinent History Musculoskeletal History: Fibromyalgia GI Medical History: Gallbladder Disease, Other History: Other Psycho-Social History: Bipolar Female Reproductive Disorders: Other Other Medical History: kidney stones, born with 1 kidney (left only) - Past Surgical History Past Surgical History: Yes Neuro Surgical History: No Pertinent History Cardiac: No Pertinent History Respiratory: No Pertinent History Gastrointestinal: Bowel Surgery, Cholecystectomy Genitourinary: No Pertinent History Musculoskeletal: No Pertinent History Female Surgical History: Hysterectomy, Section, Tubal Ligation Other Surgical History: skin cancer removed twice, Umbilical hernia repair. ruptured hernia- colostomy and reversal - Social History Smoking Status: Former smoker How long have you smoked: 20yrs Exposure to second hand smoke: No Drug Use: methamphetamines Patient Lives Alone: No Significant Family History: no pertinent family hx - Female History Hx Last Menstrual Period: UNSURE Hx Now: No - Nursing Vital Signs Nursing Vital Signs: Initial Vital Signs Pulse Rate 85 06/22/23 11:14 Respiratory Rate 12 06/22/23 11:14 Blood Pressure 143/101 06/22/23 11:14 Pain Scale Pain Intensity 0 - Physical Exam General Appearance: moderate distress Eye Exam: scleral icterus, pale conjunctivae ENT Exam: normal ENT inspection, airway intact Neck Exam: supple, trachea midline, No JVD Respiratory Exam: decreased breath sounds, respiratory distress, decreased air movement, accessory muscle use, prolonged expirations Cardiovascular/Chest Exam: regular rate/rhythm, No JVD Gastrointestinal/Abdominal Exam: soft, no distention Extremity Exam: slow capillary refill, swelling Neurologic Exam: disoriented, confusion Skin Exam: dry, ecchymosis, mottled, other (black toes) SpO2 Interpretation: normal SpO2: 100 O2 Delivery: Room Air Procedures - Central Line Time Of Procedure: 12:35 Timeout: Performed Central Line Lumen: triple Lumen Size: 7 Korean Central Line Procedure: chlorahexadine prep, sterile drapes applied, Aseptic Technique, Seldinger Technique Central Line Postion: subclavian (R) Anesthesia: 1% Lidocaine cc's of anesthesia: 5 Ultrasound Guided Placement: No Complications: arrhythmia (developed Ventricular Tachycardia for 5 -10 seconds. Back to sinus rhythm) Central Line Post Position: sutured, good blood return, position confirmed w/ CXR Progress: patient came to the emergency room patient was extremely dry unable to get any IV fluid access so intraosseous line was applied on the right leg. - Course Nursing assessment & vital signs reviewed: Yes EKG Interpreted by Me: Sinus Rhythm Rhythm Strip: Sinus Tachycardia - Radiology Exams Chest X-ray Interpretation: Reviewed by me (central line in right ventricle. No acute Infiltrates) - CT Exams Head CT Interpretation: Tele-radiologist Report Ordered Tests: Active Orders 24 hr Category Date Time Status EKG-ER Only STAT Care 06/22/23 11:13 Active EKG-ER Only STAT Care 06/22/23 11:13 Active IV Insertion STAT Care 06/22/23 11:13 Active NPO (ED) STAT Care 06/22/23 11:13 Active Oxygen-ED Only Nasal Cannula 3 lpm Care 06/22/23 11:13 Active POCT Glucose Check STAT Care 06/22/23 11:13 Active Telemetry q4h Care 06/22/23 13:03 Active CHEST 1 VIEW (PORTABLE) Stat Exams 06/22/23 12:36 Completed HEAD WITHOUT CONTRAST [CT] Stat Exams 06/22/23 11:53 Completed ABG [ARTERIAL BLOOD GASES] Urgent Lab 06/22/23 11:25 Completed ACETAMINOPHEN Stat Lab 06/22/23 12:35 Completed BLOOD CULTURE Stat Lab 06/22/23 12:40 Received CBC W DIFF Stat Lab 06/22/23 12:35 Completed CMP Stat Lab 06/22/23 12:35 Completed CULTURE,URINE Stat Lab 06/22/23 11:17 Received D-DIMER QUANTITATIVE Stat Lab 06/22/23 12:35 Completed ETHYL ALCOHOL Stat Lab 06/22/23 12:35 Completed Lactic Acid Stat Lab 06/22/23 11:13 Completed Manual Differential NC Stat Lab 06/22/23 12:35 Completed PROCALCITONIN Stat Lab 06/22/23 12:35 Completed SALICYLATE Stat Lab 06/22/23 12:35 Completed TROPONIN Q4H Lab 06/22/23 12:35 Completed TROPONIN Q4H Lab 06/22/23 16:30 Ordered TROPONIN Q4H Lab 06/22/23 20:30 Ordered UA W/RFX UR CULTURE Stat Lab 06/22/23 11:18 Completed Urine Triage Profile Stat Lab 06/22/23 11:17 Completed Medication Summary Generic Name Dose Route Start Last Admin Trade Name Freq PRN Reason Stop Dose Admin Lactated Ringer's 1,000 mls @ 999 mls/hr 06/22/23 11:30 06/22/23 13:21 Lactated Ringers IV 06/22/23 14:30 Infused .Q1H1M OMAR Infusion Potassium Chloride 20 meq in 100 mls @ 50 mls/hr 06/22/23 13:15 06/22/23 13:21 Potassium Chloride 20 Meq In Water 100ml IV 06/22/23 17:14 50 mls/hr Q2H OMAR Administration Discontinued Medications Generic Name Dose Route Start Last Admin Trade Name Freq PRN Reason Stop Dose Admin Sodium Chloride Confirm 06/22/23 11:23 Sodium Chloride 0.9% 1000 Ml Administered 06/22/23 11:24 Dose 1,000 mls @ ud .ROUTE .STK-MED ONE Meropenem 1 gm/ Sodium 100 mls @ 200 mls/hr 06/22/23 11:41 06/22/23 13:15 Chloride IV 06/22/23 12:10 Infused STAT STA Infusion Sodium Chloride Confirm 06/22/23 11:47 Sodium Chloride 100ml Mini-Bag Plus Administered 06/22/23 11:48 Dose 100 mls @ ud IV .STK-MED ONE Sodium Chloride 1,000 mls @ 999 mls/hr 06/22/23 12:37 06/22/23 12:39 Sodium Chloride 0.9% 1000 Ml IV 06/22/23 13:37 999 mls/hr .Q1H1M STA Administration Meropenem Confirm 06/22/23 11:47 Meropenem 1 Gm Vial Administered 06/22/23 11:48 Dose 1 gm IV .STK-MED ONE Lab/Rad Data: Laboratory Result Diagrams 06/22/23 12:35 06/22/23 12:35 Laboratory Results 06/22/23 06/22/23 06/22/23 Range/Units 12:35 12:35 12:35 WBC (4.0-10.5) x10^3/uL RBC (4.1-5.4) x10^6/uL Hgb (12.0-16.0) g/dL Hct (35-47) % MCV (78-100) fL MCH (26-32) pg MCHC (32-36) g/dL RDW (11.5-14.0) % Plt Count (150-450) x10^3/uL D-Dimer 2.47 H* (0.0-0.50) mg/L Puncture Site pCO2 (35-45) mmHg pO2 (75-100) mmHg Base Excess (-2.0-2.0) O2 Saturation (94-100) g/dF ABG pH (7.35-7.45) ABG HCO3 (22-28) ABG O2 Sat (Measured) (95-100) % David Test A-a Gradient a/A Ratio Hemoglobin Carboxyhemoglobin (0.0-6.9) % THgb Methemoglobin (1.4-1.5) % Potassium (3.5-5.1) Temperature C POC O2 Flow Rate % Sodium (137-145) mmol/L Chloride (98-107) mmol/L Carbon Dioxide (22-30) mmol/L Anion Gap (5-15) MEQ/L BUN (7-17) mg/dL Creatinine (0.52-1.04) mg/dL Estimated GFR ML/MIN Glucose (74-106) mg/dL Lactic Acid (0.4-2.0) Calcium (8.4-10.2) mg/dL Total Bilirubin (0.2-1.3) mg/dL AST (14-36) U/L ALT (0-35) U/L Alkaline Phosphatase (38-126) U/L Troponin I 0.045 H* (0.000-0.034) ng/mL Serum Total Protein (6.3-8.2) g/dL Albumin (3.5-5.0) g/dL Procalcitonin 4.090 H* (0.030-0.080) ng/mL Urine Color (Yellow) Urine Appearance (Clear) Urine pH (4.6-8.0) Ur Specific Galax (1.005-1.030) Urine Protein (Negative) Urine Glucose (UA) (Negative) mg/dL Urine Ketones (Negative) Urine Blood (Negative) Urine Nitrite (Negative) Urine Bilirubin (Negative) Urine Urobilinogen (0.2) mg/dL Ur Leukocyte Esterase (Negative) U Hyaline Cast (Auto) (0-2) /LPF Urine Microscopic RBC (0-5) /HPF Urine Microscopic WBC (0-5) /HPF Ur Epithelial Cells (None Seen) /HPF Urine Bacteria (None Seen) /HPF Urine Culture Reflexed (NO) Salicylates (2-20) mg/dL Urine Opiates Level (NEGATIVE) Ur Methadone (NEGATIVE) Acetaminophen (10-30) ug/ml Urine Barbiturates (NEGATIVE) Ur Phencyclidine (PCP) (NEGATIVE) Urine Amphetamine (NEGATIVE) U Benzodiazepine Level (NEGATIVE) Urine Cocaine (NEGATIVE) Urine Marijuana (THC) (NEGATIVE) Ethyl Alcohol (0-10) mg/dL 06/22/23 06/22/23 06/22/23 Range/Units 12:35 12:35 11:25 WBC 30.3 H* (4.0-10.5) x10^3/uL RBC 4.34 (4.1-5.4) x10^6/uL Hgb 13.5 (12.0-16.0) g/dL Hct 38.9 (35-47) % MCV 89.6 (78-100) fL MCH 31.1 (26-32) pg MCHC 34.7 (32-36) g/dL RDW 12.9 (11.5-14.0) % Plt Count 507 H (150-450) x10^3/uL D-Dimer (0.0-0.50) mg/L Puncture Site LEFT BRACHIAL pCO2 37 (35-45) mmHg pO2 91 (75-100) mmHg Base Excess -10.7 L (-2.0-2.0) O2 Saturation 96.3 (94-100) g/dF ABG pH 7.24 L* (7.35-7.45) ABG HCO3 15.9 L* (22-28) ABG O2 Sat (Measured) 97.0 (95-100) % David Test NOT APPLICABLE A-a Gradient 62 a/A Ratio 0.59 Hemoglobin 14.6 Carboxyhemoglobin 0.7 (0.0-6.9) % THgb Methemoglobin 0.0 L (1.4-1.5) % Potassium 2.5 L* 2.7 L* (3.5-5.1) Temperature 37.0 C POC O2 Flow Rate 28 % Sodium 135 L (137-145) mmol/L Chloride 107 (98-107) mmol/L Carbon Dioxide 17 L (22-30) mmol/L Anion Gap 15.3 H (5-15) MEQ/L BUN 52 H (7-17) mg/dL Creatinine 1.22 H (0.52-1.04) mg/dL Estimated GFR 55.4 ML/MIN Glucose 140 H (74-106) mg/dL Lactic Acid (0.4-2.0) Calcium 8.7 (8.4-10.2) mg/dL Total Bilirubin 1.00 (0.2-1.3) mg/dL AST 679 H (14-36) U/L ALT 303 H (0-35) U/L Alkaline Phosphatase 173 H (38-126) U/L Troponin I (0.000-0.034) ng/mL Serum Total Protein 7.5 (6.3-8.2) g/dL Albumin 4.0 (3.5-5.0) g/dL Procalcitonin (0.030-0.080) ng/mL Urine Color (Yellow) Urine Appearance (Clear) Urine pH (4.6-8.0) Ur Specific Galax (1.005-1.030) Urine Protein (Negative) Urine Glucose (UA) (Negative) mg/dL Urine Ketones (Negative) Urine Blood (Negative) Urine Nitrite (Negative) Urine Bilirubin (Negative) Urine Urobilinogen (0.2) mg/dL Ur Leukocyte Esterase (Negative) U Hyaline Cast (Auto) (0-2) /LPF Urine Microscopic RBC (0-5) /HPF Urine Microscopic WBC (0-5) /HPF Ur Epithelial Cells (None Seen) /HPF Urine Bacteria (None Seen) /HPF Urine Culture Reflexed (NO) Salicylates < 1.0 L (2-20) mg/dL Urine Opiates Level (NEGATIVE) Ur Methadone (NEGATIVE) Acetaminophen < 10 L (10-30) ug/ml Urine Barbiturates (NEGATIVE) Ur Phencyclidine (PCP) (NEGATIVE) Urine Amphetamine (NEGATIVE) U Benzodiazepine Level (NEGATIVE) Urine Cocaine (NEGATIVE) Urine Marijuana (THC) (NEGATIVE) Ethyl Alcohol < 10 (0-10) mg/dL 06/22/23 06/22/23 06/22/23 Range/Units 11:18 11:17 11:13 WBC (4.0-10.5) x10^3/uL RBC (4.1-5.4) x10^6/uL Hgb (12.0-16.0) g/dL Hct (35-47) % MCV (78-100) fL MCH (26-32) pg MCHC (32-36) g/dL RDW (11.5-14.0) % Plt Count (150-450) x10^3/uL D-Dimer (0.0-0.50) mg/L Puncture Site pCO2 (35-45) mmHg pO2 (75-100) mmHg Base Excess (-2.0-2.0) O2 Saturation (94-100) g/dF ABG pH (7.35-7.45) ABG HCO3 (22-28) ABG O2 Sat (Measured) (95-100) % David Test A-a Gradient a/A Ratio Hemoglobin Carboxyhemoglobin (0.0-6.9) % THgb Methemoglobin (1.4-1.5) % Potassium (3.5-5.1) Temperature C POC O2 Flow Rate % Sodium (137-145) mmol/L Chloride (98-107) mmol/L Carbon Dioxide (22-30) mmol/L Anion Gap (5-15) MEQ/L BUN (7-17) mg/dL Creatinine (0.52-1.04) mg/dL Estimated GFR ML/MIN Glucose (74-106) mg/dL Lactic Acid 1.2 (0.4-2.0) Calcium (8.4-10.2) mg/dL Total Bilirubin (0.2-1.3) mg/dL AST (14-36) U/L ALT (0-35) U/L Alkaline Phosphatase (38-126) U/L Troponin I (0.000-0.034) ng/mL Serum Total Protein (6.3-8.2) g/dL Albumin (3.5-5.0) g/dL Procalcitonin (0.030-0.080) ng/mL Urine Color Dark Yellow A (Yellow) Urine Appearance Clear (Clear) Urine pH 6.0 (4.6-8.0) Ur Specific [place]ax 1.020 (1.005-1.030) Urine Protein 300 A (Negative) Urine Glucose (UA) Negative (Negative) mg/dL Urine Ketones Negative (Negative) Urine Blood Large A (Negative) Urine Nitrite Negative (Negative) Urine Bilirubin Small A (Negative) Urine Urobilinogen 1.0 A (0.2) mg/dL Ur Leukocyte Esterase Trace A (Negative) U Hyaline Cast (Auto) 3-5 A (0-2) /LPF Urine Microscopic RBC 6-10 A (0-5) /HPF Urine Microscopic WBC 0-2 (0-5) /HPF Ur Epithelial Cells Rare (None Seen) /HPF Urine Bacteria None Seen (None Seen) /HPF Urine Culture Reflexed ORDERED SEPARATELY (NO) Salicylates (2-20) mg/dL Urine Opiates Level NEGATIVE (NEGATIVE) Ur Methadone NEGATIVE (NEGATIVE) Acetaminophen (10-30) ug/ml Urine Barbiturates NEGATIVE (NEGATIVE) Ur Phencyclidine (PCP) NEGATIVE (NEGATIVE) Urine Amphetamine POSITIVE A (NEGATIVE) U Benzodiazepine Level NEGATIVE (NEGATIVE) Urine Cocaine NEGATIVE (NEGATIVE) Urine Marijuana (THC) NEGATIVE (NEGATIVE) Ethyl Alcohol (0-10) mg/dL 0005 RAD/CHEST 1 VIEW (PORTABLE) CLINICAL HISTORY: confusion TECHNIQUE: X-ray of the chest, AP view. COMPARISON: 03/15/2023 FINDINGS: Mildly exaggerated bronchovascular markings. No focal lung lesions or consolidation were seen. Normal configuration of the mediastinum. The cardiac size is normal. The bony thorax is unremarkable. The costophrenic and cardiophrenic angles are clear. The right subclavian PICC terminates in the right atrium. IMPRESSION: Mildly exaggerated bronchovascular markings. No focal lung lesions or consolidation. CT/HEAD WITHOUT CONTRAST CLINICAL HISTORY: found semiconscious at home TECHNIQUE: Axial non-contrast CT scan of the brain was performed from the skull base to the high parietal region. Coronal and sagittal reconstructions were also obtained. DLP 1016.25 mGy*cm COMPARISON: Compared to the previous CT head dated 03/14/2023. FINDINGS: The visualized brain parenchyma shows a normal appearance. Ventura-white matter differentiation is maintained. No midline shifts or deformity. No intracerebral or extra axial hematoma. Normal size and configuration of the cerebral ventricles. Normal CT appearance of the posterior fossa structures namely the cerebellar hemispheres, brainstem, and cerebellar peduncles. The IACs are unremarkable. The cerebello-pontine angles are clear. The osseous structures in the skull base are unremarkable. No definite calvarium fractures. Mucosal opacification of ethmoid sinus. Otherwise, the rest of the scanned paranasal sinuses are clear. IMPRESSION: 1. No appreciable changes are depicted. 2. CT study for the brain is unremarkable. 3. Redemonstration of the mild ethmoidal sinusitis, otherwise, unremarkable sinuses. - Progress Progress: unchanged Progress Note: 06/22/23 13:16 Patient white blood cell count is 33,000 BUN is 51 creatinine is 1.2 and patient's liver enzymes elevated. Patient urine analysis so more than 300 RBC and 5-10 WBC. Patient D-dimer is also elevated. Patient has been requested patient to be transferred to [facility] in [facility]. 06/22/23 13:[address] Moy at [facility]. He Accepted Patient. Discussed with Dr.: Other (Dr Moy at [facility]) Will see patient in: ED Counseled pt/family regarding: lab results, diagnosis, need for follow-up, rad results - Departure Departure Disposition: Transfer ([facility]) Clinical Impression: Methamphetamine abuse, Disseminated intravascular coagulation (DIC) syndrome Sepsis Qualifiers: Sepsis type: sepsis due to unspecified organism Sepsis acute organ dysfunction status: with acute organ dysfunction Severe sepsis acute organ dysfunction type: acute liver failure Hepatic coma status: unspecified Severe sepsis shock status: with septic shock Qualified Code(s): A41.9 - Sepsis, unspecified organism Bipolar affective, manic Qualifiers: Current episode severity: moderate Qualified Code(s): F31.12 - Bipolar disorder, current episode manic without psychotic features, moderate Condition: Fair Critical Care Time: Yes Critical Care Time(excluding separately billable procedures): Critical 75-104 mins Referrals: GASTON CAMPUZANO [Primary Care Provider] - Follow up/PCP as directed
[2023-06-22 12:39] LABS: Hematocrit 38.9 % (35-47); Hemoglobin 13.5 g/dL (12.0-16.0); Mean Cell Volume 89.6 fL (78-100); Mean Corpuscular Hemoglobin 31.1 pg (26-32); Mean Corpuscular Hgb Concent. 34.7 g/dL (32-36); Platelet Count 507 x10^3/uL (150-450); Red Blood Count 4.34 x10^6/uL (4.1-5.4); Red Cell Distribution Width 12.9 % (11.5-14.0)
[2023-06-22] MEDS: Sodium Chloride 0.9% 1000 ML 1,000 ML IV STA (12:39)
[2023-06-22 12:54] LABS: ACETAMINOPHEN < 10 ug/ml (10-30); ALKALINE PHOSPHATASE 173 U/L (38-126); ANION GAP 15.3 MEQ/L (5-15); BLOOD UREA NITROGEN 52 mg/dL (7-17); CHLORIDE 107 mmol/L (98-107); Calcium 8.7 mg/dL (8.4-10.2); Creatinine 1 1.22 mg/dL (0.52-1.04); EST GLOMERULAR FILTRATION RATE 55.4 ML/MIN; ETHYL ALCOHOL < 10 mg/dL (0-10); Glucose 140 mg/dL (74-106); SALICYLATE < 1.0 mg/dL (2-20); SGOT/AST 679 U/L (14-36); SGPT/ALT 303 U/L (0-35); SODIUM 135 mmol/L (137-145); Total Protein 7.5 g/dL (6.3-8.2)
[2023-06-22 12:59] LABS: Carbon Dioxide 17 mmol/L (22-30); White Blood Count 30.3 x10^3/uL (4.0-10.5)
[2023-06-22 13:00] LABS: Amphetamine,Urine POSITIVE (NEGATIVE); Barbiturate,Urine NEGATIVE (NEGATIVE); Benzodiazepine,Urine NEGATIVE (NEGATIVE); Cocaine,Urine NEGATIVE (NEGATIVE); Methadone,Urine NEGATIVE (NEGATIVE); Opiate,Urine NEGATIVE (NEGATIVE); PCP,Urine NEGATIVE (NEGATIVE); THC,Urine NEGATIVE (NEGATIVE)
[2023-06-22 13:01] LABS: Potassium 2.5 mmol/L (3.5-5.1)
[2023-06-22 13:08] LABS: Appearance Clear (Clear); Bacteria None Seen /HPF (None Seen); Bilirubin Small (Negative); Blood Large (Negative); Epithelial Cells Rare /HPF (None Seen); Glucose, Urine Negative (Negative); Ketones Negative (Negative); Leukocyte Esterase Trace (Negative); Nitrite Negative (Negative); Protein,Urine Dip 300 (Negative); WBC 0-2 /HPF (0-5)
[2023-06-22 13:09] LABS: ADD URINE CULTURE? ORDERED SEPARATELY (NO)
--- NOTE | 2023-06-22 13:15 | XRAY ---
CLINICAL HISTORY: confusion TECHNIQUE: X-ray of the chest, AP view. COMPARISON: 03/15/2023 FINDINGS: Mildly exaggerated bronchovascular markings. No focal lung lesions or consolidation were seen. Normal configuration of the mediastinum. The cardiac size is normal. The bony thorax is unremarkable. The costophrenic and cardiophrenic angles are clear. The right subclavian PICC terminates in the right atrium. IMPRESSION: Mildly exaggerated bronchovascular markings. No focal lung lesions or consolidation. Electronically Signed by: Daniel Nj MD. (06/22/2023 13:10:48 EST)
[2023-06-22] MEDS ORDERED: POTASSIUM CHLORIDE 20 mEq IN WATER 100ML 100 ML IV ONE (13:18)
[2023-06-22] MEDS: POTASSIUM CHLORIDE 20 mEq IN WATER 100ML 20 MEQ/100 ML BAG IV SCH (13:21)
[2023-06-22 13:37] LABS: Lymphocytes 2 % (24-44); Monocyte 3 % (0.0-12.0); Total Cells Counted 100
[2023-06-22 13:44] LABS: ANISOCYTOSIS 1+; Neutrophils 95 % (36.0-66.0); Platelet Estimate INCREASED (NORMAL); Toxic Granulation 1+
[2023-06-22 14:30] VITALS: BP 139/88; PULSE 69; RESP 23; O2SAT 97
== END 2023-06-22 14:25 | disposition short-term general hospital (02) ==
LOC: ED 11:07
DX: A41.9 Sepsis, unspecified organism (principal); R65.21 Severe sepsis with septic shock; K72.00 Acute and subacute hepatic failure without coma; F15.10 Other stimulant abuse, uncomplicated; F31.12 Bipolar disorder, current episode manic without psychotic features, moderate; D65 Disseminated intravascular coagulation [defibrination syndrome]; R41.82 Altered mental status, unspecified; Z28.310 Unvaccinated for COVID-19
CPT/HCPCS: 36000; 36415; 36556; 36600; 51702; 70450; 71045; 80053; 80143; 80179; 80307; 81001; 82077; 82375; 82803; 83605; 84145; 84484; 85025; 85379; 87040; 87086; 93005; 96360; 96361; 96365; 96367; 99285; 99291; 99292; J3480

== ENCOUNTER 2023-07-14 03:52 | Emergency (ER) | payer OTHER ==
--- NOTE | 2023-07-14 04:15 | ERPHSYRPT ---
- History of Present Illness Time Seen by Provider: 07/14/23 03:55 Physician History: 48yo f presents by EMS for altered mental status. EMS states friends told them that pt has been holding arms up by her face and has been minimally responsive since around 0900 on 07/13/23. Pt is minimally responsive to voice, does not r espond w/ meaningful speech. Pt has left arm flexed at the elbow w/ wrist contracted as well as hand, right arm down at side. EMS states pt was talking in ambulance, has not spoken since arriving in ED. It is unclear if pt has been taking her prescribed medications, pt does have hx of drug abuse, reportedly has access to synthetic morphine. Timing/Duration: yesterday (yesterday 0900) Severity: moderate Character of Deficits: impaired speech Current Cognition: poor alertness Baseline Gait: walks only w/assistance Associated Symptoms: other (only responds minimally to verbal and painful stimuli) Allergies/Adverse Reactions: Sulfa (Sulfonamide Antibiotics) Allergy (Intermediate, Verified 07/14/23 05:12) Vomiting ketorolac [From Toradol] Allergy (Unknown, Verified 07/14/23 05:12) bee venom protein (honey bee) Allergy (Verified 07/14/23 05:12) methylprednisolone [From Solu-Medrol] Allergy (Verified 07/14/23 05:12) anger can take oral steroids, IV steroids she cannot take -- states she gets "roid rage" sumatriptan [From Imitrex] Allergy (Verified 07/14/23 05:12) nitrofurantoin [From Macrobid] Adverse Reaction (Verified 07/14/23 05:12) tramadol Adverse Reaction (Verified 07/14/23 05:12) Nausea flu vaccine Allergy (Intermediate, Uncoded 06/22/23 11:13) Hoarseness of voice Home Medications: Unobtainable 07/14/23 [History] Hx Tetanus, Diphtheria Vaccination/Date Given: Yes Hx Influenza Vaccination/Date Given: No Hx Pneumococcal Vaccination/Date Given: No Travel Risk - Vaccine Status Have you recieved a Covid-19 vaccination: No - Review of Systems Constitutional: Other (unable to assess ROS as pt is not responding w/ verbal stimuli) - Past Medical History Pertinent Past Medical History: Yes Neurological History: Migraines ENT History: No Pertinent History Cardiac History: No Pertinent History Respiratory History: No Pertinent History Endocrine Medical History: No Pertinent History Musculoskeletal History: Fibromyalgia GI Medical History: Gallbladder Disease, Other History: Other Psycho-Social History: Bipolar Female Reproductive Disorders: Other Other Medical History: kidney stones, born with 1 kidney (left only) - Past Surgical History Past Surgical History: Yes Neuro Surgical History: No Pertinent History Cardiac: No Pertinent History Respiratory: No Pertinent History Gastrointestinal: Bowel Surgery, Cholecystectomy Genitourinary: No Pertinent History Musculoskeletal: No Pertinent History Female Surgical History: Hysterectomy, Section, Tubal Ligation Other Surgical History: skin cancer removed twice, Umbilical hernia repair. ruptured hernia- colostomy and reversal - Social History Smoking Status: Former smoker How long have you smoked: 20yrs Exposure to second hand smoke: No Drug Use: methamphetamines Patient Lives Alone: No Significant Family History: no pertinent family hx - Female History Hx Now: No - Nursing Vital Signs Nursing Vital Signs: Initial Vital Signs Pulse Rate 96 H 07/14/23 04:00 Respiratory Rate 16 07/14/23 04:00 Blood Pressure 111/79 07/14/23 04:00 O2 Sat by Pulse Oximetry 98 07/14/23 04:00 - Carlos Coma Scale Best Eye Response (Carlos): (3) open to voice Best Verbal Response ([place]): (2) incomprehsible sounds Best Motor Response (Carlos): (4) withdraws to pain Carlos Total: 9 - Physical Exam General Appearance: mild distress Eye Exam: bilateral eye: other (pupils fixed) Ears, Nose, Throat Exam: other (dried blood appreciated around b/l nares) Neck Exam: other (In C collar, no obvious signs of pain but does not speak) Respiratory: normal breath sounds, lungs clear, airway intact, No respiratory distress Cardiovascular: regular rate/rhythm, normal heart sounds, edema (+1 b/l LE edema) Gastrointestinal: soft, normal bowel sounds, No distention Mental Status: uncooperative, other (withdraws to pain, tracks eyes to loud verbal stimuli; unable to assess neurologic status 2/2 pt's current state ) SpO2 Interpretation: normal SpO2: 99 O2 Delivery: Room Air - Course EKG Interpreted by Me: Other (EKG obtained, significant motion artifact 2/2 pt's tremulousness) Ordered Tests: Active Orders 24 hr Category Date Time Status EKG-ER Only STAT Care 07/14/23 03:55 Active NPO (ED) STAT Care 07/14/23 03:55 Active POCT Glucose Check STAT Care 07/14/23 03:58 Active Pulse Oximetry (ED) STAT Care 07/14/23 03:55 Active CERVICAL SPINE WO CONTRAST [CT] Stat Exams 07/14/23 04:15 Completed HEAD WITHOUT CONTRAST [CT] Stat Exams 07/14/23 03:56 Completed BLOOD CULTURE Stat Lab 07/14/23 04:55 Received CBC W DIFF Stat Lab 07/14/23 04:07 Completed CMP Stat Lab 07/14/23 04:07 Completed ETHYL ALCOHOL Stat Lab 07/14/23 04:07 Completed HCG QUALITATIVE, URINE Stat Lab 07/14/23 03:58 Completed Lactic Acid Stat Lab 07/14/23 04:10 Completed POCT GLUCOSE Stat Lab 07/14/23 04:48 Received POCT GLUCOSE Stat Lab 07/14/23 04:49 Completed PROTIME WITH INR Stat Lab 07/14/23 04:07 Completed PTT Stat Lab 07/14/23 04:07 Completed SALICYLATE Stat Lab 07/14/23 04:07 Completed UA W/RFX UR CULTURE Stat Lab 07/14/23 06:12 Completed Urine Triage Profile Stat Lab 07/14/23 03:58 Received Medication Summary Discontinued Medications Generic Name Dose Route Start Last Admin Trade Name Ismaq PRN Reason Stop Dose Admin Naloxone HCl 0.4 mg 07/14/23 04:52 07/14/23 04:55 Naloxone Hcl 0.4 Mg/Ml Ml IV 07/14/23 04:53 0.4 mg STAT ONE Administration Naloxone HCl Confirm 07/14/23 04:53 Naloxone Hcl 0.4 Mg/Ml Ml Administered 07/14/23 04:54 Dose 0.4 mg .ROUTE .STK-MED ONE Lab/Rad Data: Laboratory Result Diagrams 07/14/23 04:07 07/14/23 04:07 Laboratory Results 07/14/23 07/14/23 07/14/23 Range/Units 06:12 04:49 04:10 WBC (4.0-10.5) x10^3/uL RBC (4.1-5.4) x10^6/uL Hgb (12.0-16.0) g/dL Hct (35-47) % MCV (78-100) fL MCH (26-32) pg MCHC (32-36) g/dL RDW (11.5-14.0) % Plt Count (150-450) x10^3/uL MPV (7.5-11.0) fL Gran % (36.0-66.0) % Immature Gran % (Auto) (0.00-0.4) % Nucleat RBC Rel Count (0.00-0.1) % Eos # (Auto) (0-0.5) x10^3/uL Immature Gran # (Auto) (0.00-0.03) x10^3u/L Absolute Lymphs (auto) (1.0-4.6) x10^3/uL Absolute Monos (auto) (0.0-1.3) x10^3/uL Absolute Nucleated RBC (0.00-0.01) x10^3u/L Lymphocytes % (24.0-44.0) % Monocytes % (0.0-12.0) % Eosinophils % (0.00-5.0) % Basophils % (0.0-0.4) % Absolute Granulocytes (1.4-6.9) x10^3/uL Basophils # (0-0.4) x10^3/uL PT (9.4-12.5) SECONDS INR (0.8-3.0) APTT (25.1-36.5) SECONDS Sodium (137-145) mmol/L Potassium (3.5-5.1) mmol/L Chloride (98-107) mmol/L Carbon Dioxide (22-30) mmol/L Anion Gap (5-15) MEQ/L BUN (7-17) mg/dL Creatinine (0.52-1.04) mg/dL Estimated GFR ML/MIN Glucose (74-106) mg/dL POC Glucometer 132 H (74 to 106) mg/dL Lactic Acid 0.8 (0.4-2.0) Calcium (8.4-10.2) mg/dL Total Bilirubin (0.2-1.3) mg/dL AST (14-36) U/L ALT (0-35) U/L Alkaline Phosphatase (38-126) U/L Serum Total Protein (6.3-8.2) g/dL Albumin (3.5-5.0) g/dL Urine Color Yellow (Yellow) Urine Appearance Clear (Clear) Urine pH 7.5 (4.6-8.0) Ur Specific [place] 1.015 (1.005-1.030) Urine Protein Negative (Negative) Urine Glucose (UA) Negative (Negative) mg/dL Urine Ketones Negative (Negative) Urine Blood Negative (Negative) Urine Nitrite Negative (Negative) Urine Bilirubin Negative (Negative) Urine Urobilinogen 0.2 (0.2) mg/dL Ur Leukocyte Esterase Negative (Negative) U Hyaline [place] (Auto) NONE SEEN (0-2) /LPF Urine Microscopic RBC 0-2 (0-5) /HPF Urine Microscopic WBC 0-2 (0-5) /HPF Ur Epithelial Cells None Seen (None Seen) /HPF Urine Bacteria None Seen (None Seen) /HPF Urine Culture Reflexed NO (NO) Urine HCG, Qual (NEGATIVE) Salicylates (2-20) mg/dL Ethyl Alcohol (0-10) mg/dL 07/14/23 07/14/23 07/14/23 Range/Units 04:07 04:07 04:07 WBC (4.0-10.5) x10^3/uL RBC (4.1-5.4) x10^6/uL Hgb (12.0-16.0) g/dL Hct (35-47) % MCV (78-100) fL MCH (26-32) pg MCHC (32-36) g/dL RDW (11.5-14.0) % Plt Count (150-450) x10^3/uL MPV (7.5-11.0) fL Gran % (36.0-66.0) % Immature Gran % (Auto) (0.00-0.4) % Nucleat RBC Rel Count (0.00-0.1) % Eos # (Auto) (0-0.5) x10^3/uL Immature Gran # (Auto) (0.00-0.03) x10^3u/L Absolute Lymphs (auto) (1.0-4.6) x10^3/uL Absolute Monos (auto) (0.0-1.3) x10^3/uL Absolute Nucleated RBC (0.00-0.01) x10^3u/L Lymphocytes % (24.0-44.0) % Monocytes % (0.0-12.0) % Eosinophils % (0.00-5.0) % Basophils % (0.0-0.4) % Absolute Granulocytes (1.4-6.9) x10^3/uL Basophils # (0-0.4) x10^3/uL PT 10.0 (9.4-12.5) SECONDS INR 0.91 (0.8-3.0) APTT 28.1 (25.1-36.5) SECONDS Sodium 138 (137-145) mmol/L Potassium 4.2 (3.5-5.1) mmol/L Chloride 106 (98-107) mmol/L Carbon Dioxide 29 (22-30) mmol/L Anion Gap 7.1 (5-15) MEQ/L BUN 11 (7-17) mg/dL Creatinine 0.55 (0.52-1.04) mg/dL Estimated GFR 114.4 ML/MIN Glucose 101 (74-106) mg/dL POC Glucometer (74 to 106) mg/dL Lactic Acid (0.4-2.0) Calcium 8.9 (8.4-10.2) mg/dL Total Bilirubin 0.20 (0.2-1.3) mg/dL AST 27 (14-36) U/L ALT 24 (0-35) U/L Alkaline Phosphatase 110 (38-126) U/L Serum Total Protein 6.6 (6.3-8.2) g/dL Albumin 3.3 L (3.5-5.0) g/dL Urine Color (Yellow) Urine Appearance (Clear) Urine pH (4.6-8.0) Ur Specific [place] (1.005-1.030) Urine Protein (Negative) Urine Glucose (UA) (Negative) mg/dL Urine Ketones (Negative) Urine Blood (Negative) Urine Nitrite (Negative) Urine Bilirubin (Negative) Urine Urobilinogen (0.2) mg/dL Ur Leukocyte Esterase (Negative) U Hyaline Cast (Auto) (0-2) /LPF Urine Microscopic RBC (0-5) /HPF Urine Microscopic WBC (0-5) /HPF Ur Epithelial Cells (None Seen) /HPF Urine Bacteria (None Seen) /HPF Urine Culture Reflexed (NO) Urine HCG, Qual (NEGATIVE) Salicylates < 1.0 L (2-20) mg/dL Ethyl Alcohol < 10 (0-10) mg/dL 07/14/23 07/14/23 Range/Units 04:07 03:58 WBC 8.0 (4.0-10.5) x10^3/uL RBC 3.47 L (4.1-5.4) x10^6/uL Hgb 10.6 L (12.0-16.0) g/dL Hct 35.3 (35-47) % MCV 101.7 H (78-100) fL MCH 30.5 (26-32) pg MCHC 30.0 L (32-36) g/dL RDW 13.5 (11.5-14.0) % Plt Count 567 H (150-450) x10^3/uL MPV 8.3 (7.5-11.0) fL Gran % 80.4 H (36.0-66.0) % Immature Gran % (Auto) 0.3 (0.00-0.4) % Nucleat RBC Rel Count 0.0 (0.00-0.1) % Eos # (Auto) 0.23 (0-0.5) x10^3/uL Immature Gran # (Auto) 0.02 (0.00-0.03) x10^3u/L Absolute Lymphs (auto) 0.85 L (1.0-4.6) x10^3/uL Absolute Monos (auto) 0.44 (0.0-1.3) x10^3/uL Absolute Nucleated RBC 0.00 (0.00-0.01) x10^3u/L Lymphocytes % 10.6 L (24.0-44.0) % Monocytes % 5.5 (0.0-12.0) % Eosinophils % 2.9 (0.00-5.0) % Basophils % 0.3 (0.0-0.4) % Absolute Granulocytes 6.43 (1.4-6.9) x10^3/uL Basophils # 0.02 (0-0.4) x10^3/uL PT (9.4-12.5) SECONDS INR (0.8-3.0) APTT (25.1-36.5) SECONDS Sodium (137-145) mmol/L Potassium (3.5-5.1) mmol/L Chloride (98-107) mmol/L Carbon Dioxide (22-30) mmol/L Anion Gap (5-15) MEQ/L BUN (7-17) mg/dL Creatinine (0.52-1.04) mg/dL Estimated GFR ML/MIN Glucose (74-106) mg/dL POC Glucometer (74 to 106) mg/dL Lactic Acid (0.4-2.0) Calcium (8.4-10.2) mg/dL Total Bilirubin (0.2-1.3) mg/dL AST (14-36) U/L ALT (0-35) U/L Alkaline Phosphatase (38-126) U/L Serum Total Protein (6.3-8.2) g/dL Albumin (3.5-5.0) g/dL Urine Color (Yellow) Urine Appearance (Clear) Urine pH (4.6-8.0) Ur Specific [place] (1.005-1.030) Urine Protein (Negative) Urine Glucose (UA) (Negative) mg/dL Urine Ketones (Negative) Urine Blood (Negative) Urine Nitrite (Negative) Urine Bilirubin (Negative) Urine Urobilinogen (0.2) mg/dL Ur Leukocyte Esterase (Negative) U Hyaline [place] (Auto) (0-2) /LPF Urine Microscopic RBC (0-5) /HPF Urine Microscopic WBC (0-5) /HPF Ur Epithelial Cells (None Seen) /HPF Urine Bacteria (None Seen) /HPF Urine Culture Reflexed (NO) Urine HCG, Qual NEGATIVE (NEGATIVE) Salicylates (2-20) mg/dL Ethyl Alcohol (0-10) mg/dL - Progress Progress: unchanged Progress Note: 07/14/23 05:05 CT head showed: Newly appreciated small left subdural collection (hematoma) with no significant mass effect at time of scan, no overlying calvarial fractures are seen. 07/14/23 05:08 significant other showed up to ED, states he has been w/ pt all day and agrees that her AMS started at 0900. SO states that pt had multiple falls today and did hit her head. Pt states he does not know if pt has done drugs in the past few days. 07/14/23 05:28 tele-neurology consulted 07/14/23 05:55 I spoke w/ tele-neurologist Dr Turner who examined pt's imaging and case, recommends that pt be transferred to a hospital w/ neurosurgery coverage in setting of subdural hematoma 07/14/23 05:56 will attempt to transfer 07/14/23 06:30 I spoke w/ Dr Johnson - Neurosurgery at [facility] who is willing to accept pt as an ED to ED transfer for subdural hematoma attempting to arrange transport now Discussed with Dr.: Other (Dr Johnson - neurosurgery at [facility]) Will see patient in: ED Medical Desision Making - Discussion of managment Care discussed with:: specialist Reviewed:: Test results, Need for additional workup Agreed on:: need for follow-up Will see patient: in ED - Diagnostic Testing Diagnostic test were ordered, analyzed, and reviewed by me: Yes Radiological Interpretation: Reviewed by me, Teleradiologist Report - Risk of complications The pt has a high risk of morbidity or mortality based on: Decision regarding hospitilization or escalation of hosp level of care - Departure Departure Disposition: Transfer Clinical Impression: Subdural hematoma, acute, Hematoma Condition: Stable Critical Care Time: Yes Critical Care Time(excluding separately billable procedures): Critical 105-134 mins Referrals: GASTON CAMPUZANO [Primary Care Provider] - Follow up/PCP as directed
[2023-07-14] MEDS ORDERED: Narcan 0.4 MG/ML ONE (04:53)
[2023-07-14] MEDS: Narcan 0.4 MG/ML IV ONE (04:55)
[2023-07-14 05:03] LABS: Absolute Neutrophil Ct (ANC) 6.43 x10^3/uL (1.4-6.9); BASOPHIL % 0.3 % (0.0-0.4); Basophil (Absolute #) 0.02 x10^3/uL (0-0.4); Eosinophil % 2.9 % (0.00-5.0); Eosinophil (Absolute #) 0.23 x10^3/uL (0-0.5); Hematocrit 35.3 % (35-47); Hemoglobin 10.6 g/dL (12.0-16.0); IMMATURE GRAN # 0.02 x10^3u/L (0.00-0.03); IMMATURE GRAN % 0.3 % (0.00-0.4); Lymphocyte (Absolute #) 0.85 x10^3/uL (1.0-4.6); Lymphocytes % 10.6 % (24.0-44.0); Mean Cell Volume 101.7 fL (78-100); Mean Corpuscular Hemoglobin 30.5 pg (26-32); Mean Platelet Volume 8.3 fL (7.5-11.0); Monocyte (Absolute #) 0.44 x10^3/uL (0.0-1.3); Monocytes % 5.5 % (0.0-12.0); Neutrophil % 80.4 % (36.0-66.0); Platelet Count 567 x10^3/uL (150-450); Red Blood Count 3.47 x10^6/uL (4.1-5.4); Red Cell Distribution Width 13.5 % (11.5-14.0)
[2023-07-14 05:15] LABS: ETHYL ALCOHOL < 10 mg/dL (0-10); SALICYLATE < 1.0 mg/dL (2-20)
[2023-07-14 05:16] LABS: ALBUMIN 3.3 g/dL (3.5-5.0); ANION GAP 7.1 MEQ/L (5-15); BILIRUBIN,TOTAL 0.2 mg/dL (0.2-1.3); Calcium 8.9 mg/dL (8.4-10.2); Creatinine 1 0.55 mg/dL (0.52-1.04); EST GLOMERULAR FILTRATION RATE 114.4 ML/MIN; Potassium 4.2 mmol/L (3.5-5.1); Total Protein 6.6 g/dL (6.3-8.2)
[2023-07-14 05:17] LABS: INR 0.91 (0.8-3.0); PTT 28.1 SECONDS (25.1-36.5)
--- NOTE | 2023-07-14 05:20 | XRAY ---
CLINICAL HISTORY: FALL,TRAUMA TECHNIQUE: Axial CT of the cervical spine was performed with sagittal and coronal reconstructions without contrast. COMPARISON: The prior CT dated 11/01/2021 was reviewed. FINDINGS: Redemonstrated straightening of cervical lordosis with interval appearance of reversal of the cervical curve. No fracture/dislocation was noted. The vertebral body heights are normal. No evident locked/subluxated facet. Interval progression of the degenerative osteophytes is seen at C4, C5 & C6 levels with reduced C4-5 and C5-6 disc height and interval appearance of subchondral sclerosis at the latter level. No lytic or sclerotic bone lesion. The craniovertebral measures are unremarkable. Interval progression of C5-6 and smaller C4-5 disc bulges osteophytes complexes with spinal canal and neural foraminal stenosis. The scanned lung apices were unremarkable. IMPRESSION: 1. No evident acute osseous abnormality. 2. Redemonstrated straightening of cervical lordosis with interval appearance of reversal of the cervical curve likely due to muscular spasm. 3. Interval progression of C5-6 and smaller C4-5 disc bulges osteophytes complexes with spinal canal and neural foraminal stenosis. Further evaluation by MRI cervical spine is advised. 4. No other significant interval changes. Electronically Signed by: Daniel jN MD. (07/14/2023 05:16:38 EST)
--- NOTE | 2023-07-14 05:24 | XRAY ---
CLINICAL HISTORY: stroke r/o TECHNIQUE: An axial non-contrast and contrast-enhanced CT scan of the brain was performed from the skull base to the high parietal region. DLP: 1016.25 (mGY-cm) COMPARISON: 03/14/2023. FINDINGS: A newly appreciated small left subdural collection (isodense to hyperdense in appearance) is noted at the left fronto-parietal region measuring about 4 cm in AP dimension and 3.4 cm in craniocaudal dimension with maximum thickness of 3mm. No significant mass effect os noted at time of scan. The visualized brain parenchyma shows a normal appearance. [place]-white matter differentiation is maintained. No midline shifts or deformity. No intracerebral hematoma. Normal size and configuration of the cerebral ventricles. Normal CT appearance of the posterior fossa structures namely the cerebellar hemispheres, brainstem and cerebellar peduncles. The IACs are unremarkable. The cerebello-pontine angles are clear. The osseous structures in the skull base are unremarkable. No definite calvarium fractures. Mucosal opacification of the left maxillary and ethmoid sinuses. Otherwise, the rest of the scanned paranasal sinuses are clear. IMPRESSION: Newly appreciated small left subdural collection (hematoma) with no significant mass effect at time of scan, no overlying calvarial fractures are seen. [facility] ER was called at [phone] at 5:17 AM EST, 07/14/2023 and results were verbally communicated to Dr. Martini. Electronically Signed by: Daniel Nj MD. (07/14/2023 05:19:51 EST)
[2023-07-14 06:22] LABS: HCG URINE TEST NEGATIVE (NEGATIVE)
[2023-07-14 06:22] LABS: Appearance Clear (Clear); Bacteria None Seen /HPF (None Seen); Bilirubin Negative (Negative); Blood Negative (Negative); Epithelial Cells None Seen /HPF (None Seen); Glucose, Urine Negative (Negative); Hyaline Casts NONE SEEN /LPF (0-2); Ketones Negative (Negative); Leukocyte Esterase Negative (Negative); Nitrite Negative (Negative); Ph 7.5 (4.6-8.0); Protein,Urine Dip Negative (Negative); RBC 0-2 /HPF (0-5); Specific Gravity 1.015 (1.005-1.030); Urobilinogen 0.2 mg/dL (0.2); WBC 0-2 /HPF (0-5)
[2023-07-14 06:23] LABS: ADD URINE CULTURE? NO (NO)
[2023-07-14 06:35] LABS: Amphetamine,Urine NEGATIVE (NEGATIVE); Barbiturate,Urine NEGATIVE (NEGATIVE); Benzodiazepine,Urine NEGATIVE (NEGATIVE); Cocaine,Urine NEGATIVE (NEGATIVE); Methadone,Urine NEGATIVE (NEGATIVE); Opiate,Urine NEGATIVE (NEGATIVE); PCP,Urine NEGATIVE (NEGATIVE); THC,Urine NEGATIVE (NEGATIVE)
[2023-07-14 07:17] VITALS: RESP 14
[2023-07-14 07:34] VITALS: BP 113/75; PULSE 81; O2SAT 94
== END 2023-07-14 08:36 | disposition short-term general hospital (02) ==
LOC: ED 03:52
DX: S06.5XAA Traumatic subdural hemorrhage with loss of consciousness status unknown, initial encounter (principal); W19.XXXA Unspecified fall, initial encounter; R41.82 Altered mental status, unspecified
CPT/HCPCS: 36000; 36415; 51702; 70450; 72125; 80053; 80179; 80307; 81001; 81025; 82077; 82947; 83605; 85025; 85610; 85730; 87040; 93005; 94760; 96374; 99284; 99291; 99292; J2310

== ENCOUNTER 2023-08-02 12:44 | Emergency (ER) | payer OTHER ==
[2023-08-02] MEDS ORDERED: NITRO-BID 2% UD PACKETS ONE (13:02)
[2023-08-02] MEDS: NITRO-BID 2% UD PACKETS TOP ONE (13:04)
[2023-08-02] MEDS: ZOFRAN ODT 4 MG PO ONE (13:08)
[2023-08-02] MEDS ORDERED: ZOFRAN ODT 4 MG ONE (13:08)
[2023-08-02 13:27] LABS: BASOPHIL % 0.3 % (0.0-0.4); Basophil (Absolute #) 0.04 x10^3/uL (0-0.4); Eosinophil % 1.5 % (0.00-5.0); Eosinophil (Absolute #) 0.19 x10^3/uL (0-0.5); Hematocrit 40.6 % (35-47); Hemoglobin 12.4 g/dL (12.0-16.0); IMMATURE GRAN # 0.05 x10^3u/L (0.00-0.03); IMMATURE GRAN % 0.4 % (0.00-0.4); Lymphocyte (Absolute #) 2.19 x10^3/uL (1.0-4.6); Lymphocytes % 17.9 % (24.0-44.0); Mean Cell Volume 97.6 fL (78-100); Mean Corpuscular Hemoglobin 29.8 pg (26-32); Mean Corpuscular Hgb Concent. 30.5 g/dL (32-36); Mean Platelet Volume 8.4 fL (7.5-11.0); Monocyte (Absolute #) 0.79 x10^3/uL (0.0-1.3); Monocytes % 6.4 % (0.0-12.0); Neutrophil % 73.5 % (36.0-66.0); Platelet Count 676 x10^3/uL (150-450); Red Blood Count 4.16 x10^6/uL (4.1-5.4); Red Cell Distribution Width 13.6 % (11.5-14.0); White Blood Count 12.3 x10^3/uL (4.0-10.5)
[2023-08-02 13:35] LABS: HCG SERUM TEST NEGATIVE (NEGATIVE)
[2023-08-02 13:36] LABS: ALBUMIN 4.3 g/dL (3.5-5.0); BILIRUBIN,TOTAL 0.3 mg/dL (0.2-1.3); Calcium 10.2 mg/dL (8.4-10.2); Creatinine 1 0.59 mg/dL (0.52-1.04); EST GLOMERULAR FILTRATION RATE 112.5 ML/MIN; Potassium 4.2 mmol/L (3.5-5.1); Total Protein 8.3 g/dL (6.3-8.2)
[2023-08-02 15:22] VITALS: BP 113/81; PULSE 85; RESP 20; O2SAT 99
--- NOTE | 2023-08-02 15:24 | XRAY ---
CLINICAL HISTORY: Chest pain dyspnea TECHNIQUE: A Contiguous, multislice, non-contrast CT scan of the chest was performed in the axial plane in mediastinal and lung windows with multiplanar reconstructions. Total exam DLP-64.03 mGy.cm; CTDI-1.99 mGy. One of the following dose reduction techniques were utilized for this exam: Automated exposure control, adjustment of the mA and/or kV according to patient size, and use of iterative reconstruction. COMPARISON: CR dated 06/22/2023 was reviewed FINDINGS: Mild centrilobular emphysematous changes predominantly involving both upper lobes. A Small 2.7 mm subpleural nodule seen in the lateral segment of the right middle lobe [series 3; image #30/55]. Few calcified nodules seen, in the posterior segment of the right upper lobe measuring about 3 mm, in the apical segment of the right upper lobe measuring about 2mm. Other calcified nodules are seen in the right lower lobe measuring about 3.3 mm and in the posterior segment of the left lower lobe measuring about 3.9 mm. 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 No suspicious pulmonary mass or cavitary lung lesions. Few calcified right hilar and mediastinal lymph nodes seen. No suspicious pulmonary mass or cavitary lung lesions. No major collapse or consolidation. No pleural effusion. The Chest wall has no cystic or solid mass. Normal cardiac size. No pericardial effusion. Visualized sections of the upper abdomen revealed no related abnormalities apart from splenic calcified granulomas No acute osseous abnormality or suspicious bony lesions. Mild degenerative changes are seen in the spine. IMPRESSION: 1. Mild centrilobular emphysematous changes predominantly involving both upper lobes. 2. A Small 2.7 mm subpleural nodule seen in the lateral segment of the right middle lobe. No routine follow-up is needed according to the Fleischner guidelines. 3. 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 4. Few calcified nodules in both lungs representing calcified granulomas. 5. No pulmonary mass, collapse or consolidative changes. Stable findings when compared with prior CR study. Electronically Signed by: Daniel Nj MD. (08/02/2023 15:21:20 EDT)
--- NOTE | 2023-08-02 15:58 | ERPHSYRPT ---
- History of Present Illness Time Seen by Provider: 08/02/23 13:10 Source: patient Exam Limitations: no limitations Patient Subjective Stated Complaint: pt c/o of chest pain and shortness of breath Triage Nursing Assessment: Pt brought to the ER by her , tachycardic, rates overall pain as 8/10, pale in color, pulses normal, SOB and chest pain began a couple of hours ago but had vomiting and diarrhea last night, unable to keep anything down, denies cough, walked into the ER with a stable gait Timing/Duration: today, yesterday Severity: mild, moderate Modifying Factors: Improves With: nothing Associated Symptoms: denies symptoms Allergies/Adverse Reactions: Sulfa (Sulfonamide Antibiotics) Allergy (Intermediate, Verified 08/02/23 12:56) Vomiting ketorolac [From Toradol] Allergy (Unknown, Verified 08/02/23 12:56) bee venom protein (honey bee) Allergy (Verified 08/02/23 12:56) methylprednisolone [From Solu-Medrol] Allergy (Verified 08/02/23 12:56) anger can take oral steroids, IV steroids she cannot take -- states she gets "roid rage" sumatriptan [From Imitrex] Allergy (Verified 08/02/23 12:56) nitrofurantoin [From Macrobid] Adverse Reaction (Verified 08/02/23 12:56) tramadol Adverse Reaction (Verified 08/02/23 12:56) Nausea flu vaccine Allergy (Intermediate, Uncoded 08/02/23 12:56) Hoarseness of voice Home Medications: Atorvastatin Calcium 40 mg PO DAILY 08/02/23 [History] Dicyclomine HCl 20 mg [Bentyl 20 mg] 20 mg PO QID 08/02/23 [History] Duloxetine HCl 30 mg [Cymbalta 30 MG Capsule] 30 mg PO DAILY 08/02/23 [History] Furosemide [Lasix] 20 mg PO DAILY 08/02/23 [History] Gentian Holli 0 ml TP DAILY 08/02/23 [History] Lurasidone HCl 40 mg PO DAILY 08/02/23 [History] Nitroglycerin [Nitro-Bid] 1 inch TOP DAILY 08/02/23 [History] Potassium Chloride 20 meq PO DAILY 08/02/23 [History] Prazosin HCl 1 mg PO HS 08/02/23 [History] Hx Tetanus, Diphtheria Vaccination/Date Given: Yes Hx Influenza Vaccination/Date Given: No Hx Pneumococcal Vaccination/Date Given: No Travel Risk - International Travel Have you traveled outside of the country in past 3 weeks: No - Coronavirus Screening Are you exhibiting any of the following symptoms?: No Close contact with a COVID-19 positive Pt in past 14-21 Days: No - Vaccine Status Have you recieved a Covid-19 vaccination: No - Review of Systems Eyes: No Symptoms Ears, Nose, & Throat: No Symptoms Respiratory: No Symptoms Cardiac: Chest Pain Abdominal/Gastrointestinal: No Symptoms Genitourinary Symptoms: No Symptoms Musculoskeletal: No Symptoms Skin: No Symptoms Neurological: No Symptoms Psychological: No Symptoms - Past Medical History Pertinent Past Medical History: Yes Neurological History: Migraines ENT History: No Pertinent History Cardiac History: No Pertinent History Respiratory History: No Pertinent History Endocrine Medical History: No Pertinent History Musculoskeletal History: Fibromyalgia GI Medical History: Gallbladder Disease, Other History: Other Psycho-Social History: Bipolar Female Reproductive Disorders: Other Other Medical History: kidney stones, born with 1 kidney (left only) - Past Surgical History Past Surgical History: Yes Neuro Surgical History: No Pertinent History Cardiac: No Pertinent History Respiratory: No Pertinent History Gastrointestinal: Bowel Surgery, Cholecystectomy Genitourinary: No Pertinent History Musculoskeletal: No Pertinent History Female Surgical History: Hysterectomy, Section, Tubal Ligation Other Surgical History: skin cancer removed twice, Umbilical hernia repair. ruptured hernia- colostomy and reversal Significant Family History: no pertinent family hx - Female History Hx Now: No (hysterectomy) - Social History Smoking Status: Current every day smoker How long have you smoked: 20yrs Exposure to second hand smoke: Yes Drug Use: methamphetamines Patient Lives Alone: No - Nursing Vital Signs Nursing Vital Signs: Initial Vital Signs Pulse Rate 104 H 08/02/23 12:45 Respiratory Rate 20 08/02/23 12:45 Blood Pressure 123/98 08/02/23 12:45 O2 Sat by Pulse Oximetry 99 08/02/23 12:45 Pain Scale Pain Intensity 8 - Physical Exam General Appearance: no apparent distress Eye Exam: PERRL/EOMI Ears, Nose, Throat Exam: TMs normal Neck Exam: normal inspection Respiratory Exam: normal breath sounds, other (Patient is reproducible chest pain with palpation over the left anterior chest wall, RN present during the exam) Cardiovascular Exam: regular rate/rhythm Gastrointestinal/Abdomen Exam: soft Pelvic Exam: not done, deferred Rectal Exam: not done Neurologic Exam: alert, oriented x 3, cooperative Skin Exam: normal color SpO2: 99 - Course EKG Interpreted by Me: Sinus Rhythm - CT Exams Chest CT Interpretation: Other Ordered Tests: Active Orders 24 hr Category Date Time Status Kitchen Chef STAT Care 08/02/23 13:00 Active EKG-ER Only STAT Care 08/02/23 13:00 Active CHEST WITHOUT CONTRAST [CT] Stat Exams 08/02/23 12:57 Completed CBC W DIFF Stat Lab 08/02/23 13:05 Completed CK-Creatinine Phosphokinase Stat Lab 08/02/23 13:05 Completed CMP Stat Lab 08/02/23 13:05 Completed HCG QUALITATIVE, SERUM Stat Lab 08/02/23 13:05 Completed NT PRO BNPII Stat Lab 08/02/23 13:05 Completed TROPONIN Q4H Lab 08/02/23 13:05 Completed TROPONIN Q4H Lab 08/02/23 17:00 Ordered TROPONIN Q4H Lab 08/02/23 21:00 Ordered Urine Triage Profile Stat Lab 08/02/23 12:57 Ordered Medication Summary Generic Name Dose Route Start Last Admin Trade Name Freq PRN Reason Stop Dose Admin Aspirin 325 mg 08/03/23 10:00 Aspirin 325 Mg Tablet.Ec PO 09/02/23 09:59 QAM OMAR Discontinued Medications Generic Name Dose Route Start Last Admin Trade Name Freq PRN Reason Stop Dose Admin Nitroglycerin 1 gm 08/02/23 12:58 08/02/23 13:04 Nitroglycerin 1 Gm Packet TOP 08/02/23 12:59 1 gm STAT ONE Administration Nitroglycerin Confirm 08/02/23 13:02 Nitroglycerin 1 Gm Packet Administered 08/02/23 13:03 Dose 1 gm .ROUTE .STK-MED ONE Ondansetron HCl 4 mg 08/02/23 13:07 08/02/23 13:08 Zofran 4 Mg/Udtablet Orally Disintegrating PO 08/02/23 13:08 4 mg STAT ONE Administration Ondansetron HCl Confirm 08/02/23 13:08 Zofran 4 Mg/Udtablet Orally Disintegrating Administered 08/02/23 13:09 Dose 4 mg .ROUTE .STK-MED ONE Lab/Rad Data: Laboratory Result Diagrams 08/02/23 13:05 08/02/23 13:05 Laboratory Results 08/02/23 08/02/23 08/02/23 Range/Units 13:05 13:05 13:05 WBC (4.0-10.5) x10^3/uL RBC (4.1-5.4) x10^6/uL Hgb (12.0-16.0) g/dL Hct (35-47) % MCV (78-100) fL MCH (26-32) pg MCHC (32-36) g/dL RDW (11.5-14.0) % Plt Count (150-450) x10^3/uL MPV (7.5-11.0) fL Gran % (36.0-66.0) % Immature Gran % (Auto) (0.00-0.4) % Nucleat RBC Rel Count (0.00-0.1) % Eos # (Auto) (0-0.5) x10^3/uL Immature Gran # (Auto) (0.00-0.03) x10^3u/L Absolute Lymphs (auto) (1.0-4.6) x10^3/uL Absolute Monos (auto) (0.0-1.3) x10^3/uL Absolute Nucleated RBC (0.00-0.01) x10^3u/L Lymphocytes % (24.0-44.0) % Monocytes % (0.0-12.0) % Eosinophils % (0.00-5.0) % Basophils % (0.0-0.4) % Absolute Granulocytes (1.4-6.9) x10^3/uL Basophils # (0-0.4) x10^3/uL Sodium (135-145) mmol/L Potassium (3.5-5.1) mmol/L Chloride (98-107) mmol/L Carbon Dioxide (22-30) mmol/L Anion Gap (5-15) MEQ/L BUN (7-17) mg/dL Creatinine (0.52-1.04) mg/dL Estimated GFR ML/MIN Glucose (74-106) mg/dL Calcium (8.4-10.2) mg/dL Total Bilirubin (0.2-1.3) mg/dL AST (14-36) U/L ALT (0-35) U/L Alkaline Phosphatase (38-126) U/L Creatine Kinase (30-135) U/L Troponin I < 0.012 (0.000-0.034) ng/mL NT-Pro-B Natriuret Pep 53.9 (<300) pg/mL Serum Total Protein (6.3-8.2) g/dL Albumin (3.5-5.0) g/dL Serum HCG, Qual NEGATIVE (NEGATIVE) 08/02/23 08/02/23 Range/Units 13:05 13:05 WBC 12.3 H (4.0-10.5) x10^3/uL RBC 4.16 (4.1-5.4) x10^6/uL Hgb 12.4 (12.0-16.0) g/dL Hct 40.6 (35-47) % MCV 97.6 (78-100) fL MCH 29.8 (26-32) pg MCHC 30.5 L (32-36) g/dL RDW 13.6 (11.5-14.0) % Plt Count 676 H (150-450) x10^3/uL MPV 8.4 (7.5-11.0) fL Gran % 73.5 H (36.0-66.0) % Immature Gran % (Auto) 0.4 (0.00-0.4) % Nucleat RBC Rel Count 0.0 (0.00-0.1) % Eos # (Auto) 0.19 (0-0.5) x10^3/uL Immature Gran # (Auto) 0.05 H (0.00-0.03) x10^3u/L Absolute Lymphs (auto) 2.19 (1.0-4.6) x10^3/uL Absolute Monos (auto) 0.79 (0.0-1.3) x10^3/uL Absolute Nucleated RBC 0.00 (0.00-0.01) x10^3u/L Lymphocytes % 17.9 L (24.0-44.0) % Monocytes % 6.4 (0.0-12.0) % Eosinophils % 1.5 (0.00-5.0) % Basophils % 0.3 (0.0-0.4) % Absolute Granulocytes 9.00 H (1.4-6.9) x10^3/uL Basophils # 0.04 (0-0.4) x10^3/uL Sodium 142 (135-145) mmol/L Potassium 4.2 (3.5-5.1) mmol/L Chloride 114 H (98-107) mmol/L Carbon Dioxide 15 L* (22-30) mmol/L Anion Gap 17.0 H (5-15) MEQ/L BUN 13 (7-17) mg/dL Creatinine 0.59 (0.52-1.04) mg/dL Estimated GFR 112.5 ML/MIN Glucose 111 H (74-106) mg/dL Calcium 10.2 (8.4-10.2) mg/dL Total Bilirubin 0.30 (0.2-1.3) mg/dL AST 21 (14-36) U/L ALT 22 (0-35) U/L Alkaline Phosphatase 116 (38-126) U/L Creatine Kinase 26 L (30-135) U/L Troponin I (0.000-0.034) ng/mL NT-Pro-B Natriuret Pep (<300) pg/mL Serum Total Protein 8.3 H (6.3-8.2) g/dL Albumin 4.3 (3.5-5.0) g/dL Serum HCG, Qual (NEGATIVE) - Progress Progress Note: IMPRESSION: 1. Mild centrilobular emphysematous changes predominantly involving both upper lobes. 2. A Small 2.7 mm subpleural nodule seen in the lateral segment of the right middle lobe. No routine follow-up is needed according to the Fleischner guidelines. 3. 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 4. Few calcified nodules in both lungs representing calcified granulomas. 5. No pulmonary mass, collapse or consolidative changes. Stable findings when compared with prior CR study. 08/02/23 15:56 Patient was complaining of chest pain pain protocol was initiated her labs were negative. The chest was ordered however given the patient's history of renal disease a noncontrast CT was opted, she was given nitroglycerin with some relief of her pain. She was updated with her lab results and informed of the need for follow-up with her primary care provider she also recommended on the need to stop abusing drugs and alcohol. I have informed her of the need for outpatient cardiac evaluation and the need to use Pepcid [id number], and PPI Medical Desision Making - Discussion of managment Reviewed:: Test results Agreed on:: need for follow-up - Diagnostic Testing Diagnostic test were ordered, analyzed, and reviewed by me: Yes Radiological Interpretation: Teleradiologist Report - Departure Clinical Impression: Chest pain Condition: Stable Critical Care Time: No Referrals: GASTON CAMPUZANO [Primary Care Provider] - Follow up/PCP as directed
[2023-08-03] MEDS ORDERED: Ecotrin 325 MG PO SCH (10:00)
== END 2023-08-02 16:09 | disposition home or self-care (01) ==
LOC: ED 12:44
DX: R07.9 Chest pain, unspecified (principal); R06.02 Shortness of breath; Z79.899 Other long term (current) drug therapy; Z28.310 Unvaccinated for COVID-19; Z72.0 Tobacco use
CPT/HCPCS: 36415; 71250; 80053; 82550; 83880; 84484; 84703; 85025; 93005; 93041; 99284; Q0162; A9270-GY

== ENCOUNTER 2023-08-06 15:33 | Observation (INO) | payer OTHER ==
[2023-08-06 15:50] LABS: BASOPHIL % 0.3 % (0.0-0.4); Basophil (Absolute #) 0.03 x10^3/uL (0-0.4); Eosinophil % 0.6 % (0.00-5.0); Eosinophil (Absolute #) 0.07 x10^3/uL (0-0.5); Hematocrit 33.8 % (35-47); Hemoglobin 10.5 g/dL (12.0-16.0); IMMATURE GRAN # 0.05 x10^3u/L (0.00-0.03); IMMATURE GRAN % 0.4 % (0.00-0.4); Lymphocyte (Absolute #) 1.74 x10^3/uL (1.0-4.6); Lymphocytes % 15.1 % (24.0-44.0); Mean Cell Volume 96.3 fL (78-100); Mean Corpuscular Hemoglobin 29.9 pg (26-32); Mean Corpuscular Hgb Concent. 31.1 g/dL (32-36); Mean Platelet Volume 8.5 fL (7.5-11.0); Monocyte (Absolute #) 0.62 x10^3/uL (0.0-1.3); Monocytes % 5.4 % (0.0-12.0); Neutrophil % 78.2 % (36.0-66.0); Platelet Count 436 x10^3/uL (150-450); Red Blood Count 3.51 x10^6/uL (4.1-5.4); Red Cell Distribution Width 13.2 % (11.5-14.0); White Blood Count 11.5 x10^3/uL (4.0-10.5)
[2023-08-06] MEDS ORDERED: Zofran 4 MG/2 ML VIAL ONE (15:50)
[2023-08-06] MEDS ORDERED: Sodium Chloride 0.9% 1000 ML 1,000 ML ONE ×2 (15:50→19:05)
[2023-08-06] MEDS: Sodium Chloride 0.9% 1000 ML 1,000 ML IV STA (15:53)
[2023-08-06] MEDS: Zofran 4 MG/2 ML VIAL IV ONE (15:54)
--- NOTE | 2023-08-06 15:55 | ERPHSYRPT ---
- History of Present Illness Time Seen by Provider: 08/06/23 15:40 Source: family Exam Limitations: clinical condition Physician History: This is a 48-year-old white female patient of Dr. Zuluaga who was brought into the emergency department by the patient's who provided additional, independent history because the patient had attempted an overdose using Nucynta and she is too lethargic to answer questions. The milligram strength was 100 mg. The timing that the pills were taken is uncertain per patient's report. He also did not know exactly when she had filled the prescription. All he knew was that 37 pills out of a recent prescription bottle was missing. Patient arrives to the emergency department very lethargic. She is arousable to voice. She is too lethargic to follow commands or speak at this time. Patient does have a history of a intracranial bleed secondary to fall/trauma in the past. Patient has no verbalization of any complaints but she is lethargic. Patient was seen in our emergency department on 08/02/2023 with complaint of chest pain. The laboratory results and twelve-lead EKG were reviewed by me from that visit. Currently, the patient's vital signs are stable. Her respiratory rate is running between 12 breaths and 20 breaths/min. Her room air oxygen saturation level is between 93 and 95%. Her blood pressure shows a systolic blood pressure of 127/87 and her heart rate is 90 bpm. Poison Control Center was contacted immediately. They recommend observation with the use of Narcan if the patient is showing significant respiratory depression causing her rate to drop as well as her oxygen saturation levels to drop. It is unknown if the patient took any other prescription or illicit drugs. 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 Timing/Duration: today Severity of Symptoms-Max: moderate Severity of Symptoms-Current: moderate Context related to: other Suicidal thoughts: attempt Associated Symptoms: ingestion, other Previous symptoms: same symptoms as today (Allergic), no recent treatment Allergies/Adverse Reactions: Sulfa (Sulfonamide Antibiotics) Allergy (Intermediate, Verified 08/06/23 15:39) Vomiting ketorolac [From Toradol] Allergy (Unknown, Verified 08/06/23 15:39) bee venom protein (honey bee) Allergy (Verified 08/06/23 15:39) methylprednisolone [From Solu-Medrol] Allergy (Verified 08/06/23 15:39) anger can take oral steroids, IV steroids she cannot take -- states she gets "roid rage" sumatriptan [From Imitrex] Allergy (Verified 08/06/23 15:39) nitrofurantoin [From Macrobid] Adverse Reaction (Verified 08/06/23 15:39) tramadol Adverse Reaction (Verified 08/06/23 15:39) Nausea flu vaccine Allergy (Intermediate, Uncoded 08/06/23 15:39) Hoarseness of voice Home Medications: Atorvastatin Calcium 40 mg PO DAILY 08/02/23 [History] Dicyclomine HCl 20 mg [Bentyl 20 mg] 20 mg PO QID 08/02/23 [History] Duloxetine HCl 30 mg [Cymbalta 30 MG Capsule] 30 mg PO DAILY 08/02/23 [History] Furosemide [Lasix] 20 mg PO DAILY 08/02/23 [History] Gentian Holli 0 ml TP DAILY 08/02/23 [History] Lurasidone HCl 40 mg PO DAILY 08/02/23 [History] Nitroglycerin [Nitro-Bid] 1 inch TOP DAILY 08/02/23 [History] Potassium Chloride 20 meq PO DAILY 08/02/23 [History] Prazosin HCl 1 mg PO HS 08/02/23 [History] Hx Tetanus, Diphtheria Vaccination/Date Given: Yes Hx Influenza Vaccination/Date Given: No Hx Pneumococcal Vaccination/Date Given: No Travel Risk - International Travel Have you traveled outside of the country in past 3 weeks: No - Coronavirus Screening Are you exhibiting any of the following symptoms?: No Close contact with a COVID-19 positive Pt in past 14-21 Days: No - Vaccine Status Have you recieved a Covid-19 vaccination: No - Past Medical History Pertinent Past Medical History: Yes Neurological History: Migraines ENT History: No Pertinent History Cardiac History: No Pertinent History Respiratory History: No Pertinent History Endocrine Medical History: No Pertinent History Musculoskeletal History: Fibromyalgia GI Medical History: Gallbladder Disease, Other History: Other Psycho-Social History: Bipolar Female Reproductive Disorders: Other Other Medical History: kidney stones, born with 1 kidney (left only), OVERDOSE - Past Surgical History Past Surgical History: Yes Neuro Surgical History: No Pertinent History Cardiac: No Pertinent History Respiratory: No Pertinent History Gastrointestinal: Bowel Surgery, Cholecystectomy Genitourinary: No Pertinent History Musculoskeletal: No Pertinent History Female Surgical History: Hysterectomy, Section, Tubal Ligation Other Surgical History: skin cancer removed twice, Umbilical hernia repair. ruptured hernia- colostomy and reversal Significant Family History: no pertinent family hx - Female History Hx Now: No - Social History Smoking Status: Current every day smoker How long have you smoked: 20yrs Exposure to second hand smoke: Yes Drug Use: methamphetamines Patient Lives Alone: No - Review of Systems Constitutional: Lethargy Eyes: No Symptoms Ears, Nose, & Throat: No Symptoms Respiratory: No Symptoms Cardiac: No Symptoms Abdominal/Gastrointestinal: No Symptoms Genitourinary Symptoms: No Symptoms Musculoskeletal: No Symptoms Skin: No Symptoms Neurological: Lethargy Psychological: Drug Abuse, Depression, Suicidal Ideations Endocrine: No Symptoms Hematologic/Lymphatic: No Symptoms Immunological/Allergic: No Symptoms All Other Systems: Reviewed and Negative - Nursing Vital Signs Nursing Vital Signs: Initial Vital Signs Pulse Rate 84 08/06/23 15:35 Respiratory Rate 10 L 08/06/23 15:35 Blood Pressure 127/87 08/06/23 15:35 Pain Scale Pain Intensity 0 - Physical Exam General Appearance: lethargy Eyes, Ears, Nose, Throat Exam: normal ENT inspection, dry mucous membranes Neck Exam: normal inspection, non-tender, supple, full range of motion Respiratory Exam: normal breath sounds, lungs clear, airway intact, No chest tenderness, No respiratory distress Cardiovascular Exam: regular rate/rhythm, normal heart sounds, normal peripheral pulses Gastrointestinal/Abdominal Exam: soft, normal bowel sounds, No tenderness Extremities Exam: normal inspection, normal range of motion, No evidence of injury Neurological Exam: withdraws to pain Behavior/Eye Contact/Speech: intoxicated appearance (Allergic) Skin Exam: other (Ischemic, necrotic tips of toes on both feet. No pus. No odor, no cellulitis. No proximal streaking. These findings are chronic in this patient.) SpO2 Interpretation: borderline oxygenation SpO2: 94 O2 Delivery: Room Air - Course Nursing assessment & vital signs reviewed: Yes EKG Interpreted by Me: RATE (91), Sinus Rhythm, Left Fowler Deviation, NORMAL INTERVALS, NORMAL QRS, NORMAL ST-T, Other (No acute ischemic changes on today's twelve-lead EKG. Comparison twelve-lead EKG 08/02/2023. That twelve-lead EKG shows a heart rate of 96 bpm and normal sinus rhythm with a left anterior fascicular block.) Ordered Tests: Active Orders 24 hr Category Date Time Status Catheter-[place] [facility] STAT Care 08/06/23 15:38 Active EKG-ER Only STAT Care 08/06/23 15:38 Active IV Insertion STAT Care 08/06/23 15:38 Active HEAD WITHOUT CONTRAST [CT] Stat Exams 08/06/23 18:16 Ordered ABG [ARTERIAL BLOOD GASES] Stat Lab 08/06/23 18:07 Ordered ACETAMINOPHEN Stat Lab 08/06/23 15:45 Completed CBC W DIFF Stat Lab 08/06/23 15:38 Completed CMP Stat Lab 08/06/23 15:45 Completed CULTURE,URINE Stat Lab 08/06/23 15:56 Received ETHYL ALCOHOL Stat Lab 08/06/23 15:45 Completed SALICYLATE Stat Lab 08/06/23 15:45 Completed UA W/RFX UR CULTURE Stat Lab 08/06/23 15:56 Completed Urine Triage Profile Stat Lab 08/06/23 15:56 Completed Transfer Order Routine Transfer 08/06/23 Ordered Medication Summary Discontinued Medications Generic Name Dose Route Start Last Admin Trade Name Freq PRN Reason Stop Dose Admin Sodium Chloride 1,000 mls @ 999 mls/hr 08/06/23 15:38 08/06/23 16:59 Sodium Chloride 0.9% 1000 Ml IV 08/06/23 16:38 Infused .Q1H1M STA Infusion Sodium Chloride Confirm 08/06/23 15:50 Sodium Chloride 0.9% 1000 Ml Administered 08/06/23 15:51 Dose 1,000 mls @ ud .ROUTE .STK-MED ONE Ceftriaxone Sodium 1 gm in 100 mls @ 200 mls/hr 08/06/23 17:49 Rocephin 1 Gm / 100 Ml Nacl IV 08/06/23 18:18 STAT ONE Naloxone HCl 2 mg 08/06/23 16:12 08/06/23 16:16 Naloxone Hcl 2mg/2 Ml 2 Mg/2 Ml Syr IV 08/06/23 16:13 2 mg STAT ONE Administration Naloxone HCl Confirm 08/06/23 16:13 Naloxone Hcl 2mg/2 Ml 2 Mg/2 Ml Syr Administered 08/06/23 16:14 Dose 2 mg .ROUTE .STK-MED ONE Ondansetron HCl 4 mg 08/06/23 15:38 08/06/23 15:54 Ondansetron Hcl 4 Mg/2 Ml Vial IV 08/06/23 15:39 4 mg STAT ONE Administration Ondansetron HCl Confirm 08/06/23 15:50 Ondansetron Hcl 4 Mg/2 Ml Vial Administered 08/06/23 15:51 Dose 4 mg .ROUTE .STK-MED ONE Lab/Rad Data: Laboratory Result Diagrams 08/06/23 15:38 08/06/23 15:45 Laboratory Results 08/06/23 08/06/23 08/06/23 Range/Units 16:00 15:56 15:56 WBC (4.0-10.5) x10^3/uL RBC (4.1-5.4) x10^6/uL Hgb (12.0-16.0) g/dL Hct (35-47) % MCV (78-100) fL MCH (26-32) pg MCHC (32-36) g/dL RDW (11.5-14.0) % Plt Count (150-450) x10^3/uL MPV (7.5-11.0) fL Gran % (36.0-66.0) % Immature Gran % (Auto) (0.00-0.4) % Nucleat RBC Rel Count (0.00-0.1) % Eos # (Auto) (0-0.5) x10^3/uL Immature Gran # (Auto) (0.00-0.03) x10^3u/L Absolute Lymphs (auto) (1.0-4.6) x10^3/uL Absolute Monos (auto) (0.0-1.3) x10^3/uL Absolute Nucleated RBC (0.00-0.01) x10^3u/L Lymphocytes % (24.0-44.0) % Monocytes % (0.0-12.0) % Eosinophils % (0.00-5.0) % Basophils % (0.0-0.4) % Absolute Granulocytes (1.4-6.9) x10^3/uL Basophils # (0-0.4) x10^3/uL Sodium (135-145) mmol/L Potassium (3.5-5.1) mmol/L Chloride (98-107) mmol/L Carbon Dioxide (22-30) mmol/L Anion Gap (5-15) MEQ/L BUN (7-17) mg/dL Creatinine (0.52-1.04) mg/dL Estimated GFR ML/MIN Glucose (74-106) mg/dL Calcium (8.4-10.2) mg/dL Total Bilirubin (0.2-1.3) mg/dL AST (14-36) U/L ALT (0-35) U/L Alkaline Phosphatase (38-126) U/L Ammonia (9-30) umol/L Serum Total Protein (6.3-8.2) g/dL Albumin (3.5-5.0) g/dL Urine Color Yellow (Yellow) Urine Appearance Clear (Clear) Urine pH 6.5 (4.6-8.0) Ur Specific [place] 1.020 (1.005-1.030) Urine Protein 100 A (Negative) Urine Glucose (UA) Negative (Negative) mg/dL Urine Ketones Negative (Negative) Urine Blood Negative (Negative) Urine Nitrite Positive A (Negative) Urine Bilirubin Negative (Negative) Urine Urobilinogen 0.2 (0.2) mg/dL Ur Leukocyte Esterase Trace A (Negative) U Hyaline Cast (Auto) NONE SEEN (0-2) /LPF Urine Microscopic RBC 0-2 (0-5) /HPF Urine Microscopic WBC 21-50 A (0-5) /HPF Ur Epithelial Cells None Seen (None Seen) /HPF Urine Bacteria Many A (None Seen) /HPF Urine Culture Reflexed ORDERED SEPARATELY (NO) Salicylates (2-20) mg/dL Urine Opiates Level NEGATIVE (NEGATIVE) Ur Methadone NEGATIVE (NEGATIVE) Acetaminophen (10-30) ug/ml Urine Barbiturates NEGATIVE (NEGATIVE) Ur Phencyclidine (PCP) NEGATIVE (NEGATIVE) Urine Amphetamine NEGATIVE (NEGATIVE) U Benzodiazepine Level NEGATIVE (NEGATIVE) Urine Cocaine NEGATIVE (NEGATIVE) Urine Marijuana (THC) NEGATIVE (NEGATIVE) Ethyl Alcohol (0-10) mg/dL Influenza Type A Ag NEGATIVE (NEGATIVE) Influenza Type B Ag NEGATIVE (NEGATIVE) RSV (PCR) NEGATIVE (NEGATIVE) SARS-CoV-2 (PCR) POSITIVE A (NEGATIVE) 08/06/23 08/06/23 08/06/23 Range/Units 15:45 15:45 15:38 WBC 11.5 H (4.0-10.5) x10^3/uL RBC 3.51 L (4.1-5.4) x10^6/uL Hgb 10.5 L (12.0-16.0) g/dL Hct 33.8 L (35-47) % MCV 96.3 (78-100) fL MCH 29.9 (26-32) pg MCHC 31.1 L (32-36) g/dL RDW 13.2 (11.5-14.0) % Plt Count 436 (150-450) x10^3/uL MPV 8.5 (7.5-11.0) fL Gran % 78.2 H (36.0-66.0) % Immature Gran % (Auto) 0.4 (0.00-0.4) % Nucleat RBC Rel Count 0.0 (0.00-0.1) % Eos # (Auto) 0.07 (0-0.5) x10^3/uL Immature Gran # (Auto) 0.05 H (0.00-0.03) x10^3u/L Absolute Lymphs (auto) 1.74 (1.0-4.6) x10^3/uL Absolute Monos (auto) 0.62 (0.0-1.3) x10^3/uL Absolute Nucleated RBC 0.00 (0.00-0.01) x10^3u/L Lymphocytes % 15.1 L (24.0-44.0) % Monocytes % 5.4 (0.0-12.0) % Eosinophils % 0.6 (0.00-5.0) % Basophils % 0.3 (0.0-0.4) % Absolute Granulocytes 9.00 H (1.4-6.9) x10^3/uL Basophils # 0.03 (0-0.4) x10^3/uL Sodium 137 (135-145) mmol/L Potassium 3.6 (3.5-5.1) mmol/L Chloride 110 H (98-107) mmol/L Carbon Dioxide 15 L* (22-30) mmol/L Anion Gap 16.1 H (5-15) MEQ/L BUN 16 (7-17) mg/dL Creatinine 0.85 (0.52-1.04) mg/dL Estimated GFR 85.5 ML/MIN Glucose 89 (74-106) mg/dL Calcium 9.0 (8.4-10.2) mg/dL Total Bilirubin < 0.10 L (0.2-1.3) mg/dL AST 24 (14-36) U/L ALT 15 (0-35) U/L Alkaline Phosphatase 113 (38-126) U/L Ammonia 30 (9-30) umol/L Serum Total Protein 7.3 (6.3-8.2) g/dL Albumin 3.7 (3.5-5.0) g/dL Urine Color (Yellow) Urine Appearance (Clear) Urine pH (4.6-8.0) Ur Specific [place] (1.005-1.030) Urine Protein (Negative) Urine Glucose (UA) (Negative) mg/dL Urine Ketones (Negative) Urine Blood (Negative) Urine Nitrite (Negative) Urine Bilirubin (Negative) Urine Urobilinogen (0.2) mg/dL Ur Leukocyte Esterase (Negative) U Hyaline Cast (Auto) (0-2) /LPF Urine Microscopic RBC (0-5) /HPF Urine Microscopic WBC (0-5) /HPF Ur Epithelial Cells (None Seen) /HPF Urine Bacteria (None Seen) /HPF Urine Culture Reflexed (NO) Salicylates < 1.0 L (2-20) mg/dL Urine Opiates Level (NEGATIVE) Ur Methadone (NEGATIVE) Acetaminophen < 10 L (10-30) ug/ml Urine Barbiturates (NEGATIVE) Ur Phencyclidine (PCP) (NEGATIVE) Urine Amphetamine (NEGATIVE) U Benzodiazepine Level (NEGATIVE) Urine Cocaine (NEGATIVE) Urine Marijuana (THC) (NEGATIVE) Ethyl Alcohol < 10 (0-10) mg/dL Influenza Type A Ag (NEGATIVE) Influenza Type B Ag (NEGATIVE) RSV (PCR) (NEGATIVE) SARS-CoV-2 (PCR) (NEGATIVE) - Progress Progress: improved, re-examined Progress Note: 08/06/23 15:59 This patient's medical issue is 1 of moderate to high complexity. The level of complexity and the workup performed is based on review of the patient's past medical history, review of the patient's medication list, review of patient drug allergy list, history present illness and physical findings on examination. The workup in this patient includes placement of intravenous line, placement of Fole y catheter, infusion of normal saline solution, infusion of 4 mg Zofran intravenously, CBC, CMP, acetaminophen level, salicylate level, ethyl alcohol level, urinalysis, twelve-lead EKG, CT scan of the head. We also consulted Poison Control Center and following their recommendations. Will place 2 L of oxygen via nasal cannula monitor at this time. She is placed on a lunchroom monitor. Patient is maintaining her oxygen saturation level and her airway on her own at this time. We will watch her closely and we may need to provide this patient with Narcan. 08/06/23 16:19 Patient's respiratory rate was running in the 6 breaths to 9 breaths/min. Her systolic blood pressure was in the high 90s. Therefore, I ordered 1 mg of intravenous Narcan. Within just a matter of 15 to 20 seconds she woke up rapidly. Her oxygen saturations 99% respiratory rate 14 to 16 breaths/min. Of note: Patient has chronic bilateral ischemic toes (multiple). This has been present for several months and it is being followed as an outpatient. Surgeons are waiting for demarcation and then will decide on debridement versus amputation. This finding is chronic in this patient. 08/06/23 16:57 Patient and (POA) declined a CT scan of the head. We will have them sign refusal of care/treatment form. Patient is lethargic and likely secondary to the Nucynta overdose. However, patient does have a history of intracranial bleed following a fall. does not know if the patient fell or not. 08/06/23 18:43 I did speak with Dr. Nichols, our hospitalist. I reviewed the patient history, presenting complaint, physical findings, results of the laboratory data. She accepts this patient to be placed in observation. Patient is too lethargic at this time to undergo a telemetry psychiatric evaluation or [id number] mental health evaluation. She will be placed in the ICU setting for one-on-one care and once she is awake alert oriented tomorrow morning, the mental health evaluation will take place. She wanted a arterial blood gas performed. We are waiting for the results of the CT scan of the head. The patient and patient's POA now agreed to the CT scan of the head. 08/06/23 18:53 The last several months the patient's CO2 levels been anywhere between 12 and 15 several times. The telehospitalist is aware of this. Counseled pt/family regarding: lab results, diagnosis, rad results Medical Desision Making - Independent Historian Additional History obtained from: Spouse - External Record(s) Reviewed Records reviewed as a part of evaluation & management: Inpatient - Risk of complications The pt has a high risk of morbidity or mortality based on: Decision regarding hospitilization or escalation of hosp level of care - Departure Departure Disposition: Observation Clinical Impression: Overdose, Lethargy, Suicide attempt Condition: Serious Critical Care Time: Yes Critical Care Time(excluding separately billable procedures): Critical 30-74 mins (40 minutes) Referrals: GASTON ZULUAGA [Primary Care Provider] - Follow up/PCP as directed
[2023-08-06 16:11] LABS: ACETAMINOPHEN < 10 ug/ml (10-30); ALBUMIN 3.7 g/dL (3.5-5.0); ALKALINE PHOSPHATASE 113 U/L (38-126); ANION GAP 16.1 MEQ/L (5-15); BILIRUBIN,TOTAL < 0.10 mg/dL (0.2-1.3); BLOOD UREA NITROGEN 16 mg/dL (7-17); CHLORIDE 110 mmol/L (98-107); Creatinine 1 0.85 mg/dL (0.52-1.04); EST GLOMERULAR FILTRATION RATE 85.5 ML/MIN; ETHYL ALCOHOL < 10 mg/dL (0-10); Glucose 89 mg/dL (74-106); Potassium 3.6 mmol/L (3.5-5.1); SALICYLATE < 1.0 mg/dL (2-20); SGOT/AST 24 U/L (14-36); SGPT/ALT 15 U/L (0-35); SODIUM 137 mmol/L (135-145); Total Protein 7.3 g/dL (6.3-8.2)
[2023-08-06] MEDS ORDERED: NARCAN 2 MG/2 ML ONE (16:13)
[2023-08-06] MEDS: NARCAN 2 MG/2 ML IV ONE (16:16)
[2023-08-06 16:17] LABS: Carbon Dioxide 15 mmol/L (22-30)
[2023-08-06 16:18] LABS: Appearance Clear (Clear); Bacteria Many /HPF (None Seen); Bilirubin Negative (Negative); Blood Negative (Negative); Epithelial Cells None Seen /HPF (None Seen); Glucose, Urine Negative (Negative); Hyaline Casts NONE SEEN /LPF (0-2); Ketones Negative (Negative); Leukocyte Esterase Trace (Negative); Nitrite Positive (Negative); Ph 6.5 (4.6-8.0); Protein,Urine Dip 100 (Negative); RBC 0-2 /HPF (0-5); Urobilinogen 0.2 mg/dL (0.2); WBC 21-50 /HPF (0-5)
[2023-08-06 16:21] LABS: ADD URINE CULTURE? ORDERED SEPARATELY (NO)
[2023-08-06 16:34] LABS: Amphetamine,Urine NEGATIVE (NEGATIVE); Barbiturate,Urine NEGATIVE (NEGATIVE); Benzodiazepine,Urine NEGATIVE (NEGATIVE); Cocaine,Urine NEGATIVE (NEGATIVE); Methadone,Urine NEGATIVE (NEGATIVE); Opiate,Urine NEGATIVE (NEGATIVE); PCP,Urine NEGATIVE (NEGATIVE); THC,Urine NEGATIVE (NEGATIVE)
[2023-08-06 16:41] LABS: INFLUENZA A NEGATIVE (NEGATIVE); INFLUENZA B NEGATIVE (NEGATIVE); RESPIRATORY SYNCTIAL VIRUS NEGATIVE (NEGATIVE)
[2023-08-06 16:43] LABS: SARS-CoV-2 Xpert Express POSITIVE (NEGATIVE)
[2023-08-06] MEDS ORDERED: ROCEPHIN 1 GM / 100 ML NaCl 1 GM/100 ML IVPB IV ONE (19:05)
[2023-08-06] MEDS: ROCEPHIN 1 GM / 100 ML NaCl 1 GM/100 ML IVPB IV ONE (19:06)
[2023-08-06] MEDS: Sodium Chloride 0.9% 1000 ML 1,000 ML IV SCH (19:07)
[2023-08-06 19:12] LABS: A-aADO2 50; ABG HEMOGLOBIN 10.1; ABG POTASSIUM 3.5 (3.5-5.1); ARTERIAL BLD GAS O2 SATURATION 98.7 % (95-100); ARTERIAL BLOOD GAS BASE EXCESS -9.8 (-2.0-2.0); ARTERIAL BLOOD GAS FIO2 28 %; ARTERIAL BLOOD GAS PCO2 34 mmHg (35-45); ARTERIAL BLOOD GAS PO2 107 mmHg (75-100); ARTERIAL BLOOD GAS pH 7.28 (7.35-7.45); CARBOXYHEMOGLOBIN 0.6 % THgb (0.0-6.9); HGB O2 SAT 98.2 g/dF (94-100); paO2 pAO1 0.68
[2023-08-06 19:13] LABS: ABG SITE LBA; ALLEN TEST OK? yes
[2023-08-06] MEDS ORDERED: Narcan 0.4 MG/ML IV PRN (21:12)
--- NOTE | 2023-08-06 21:20 | PCM.HP ---
History of Present Illness - Chief Complaint Chief Complaint: Narcotic overdose Date: 08/06/23 History of Present Illness: 48-year-old woman with a history of bipolar disorder, methamphetamine dependence, tobacco abuse, and bilateral ischemic toes, with multiple admissions for overdosing on medication, who was brought in by after suspected overdose on her narcotic Nucynta. noted that patient was lethargic, and that roughly 37 pills of Nucynta 100 mg from her recent prescription had been missing. She was unarousable to voice and had severe respiratory depression at 5 breaths/min. She was given Narcan in the ED, with immediate improvement in respiratory status. Poison Control Center was consulted and recommended observation with PRN Narcan. Of note, patient was also admitted in February with overdose of multiple medications. At that time, she also had respiratory depression requiring Narcan, as well as a metabolic acidosis which is relatively chronic for the patient. At that point, she improved with a bicarb drip, was evaluated with psychiatry, but was felt to be safe for discharge home. Upon my examination, her is no longer at bedside, and patient is awake and able to answer some questions. Per patient, she was brought in because she has been feeling "crummy" for the last few days, with nonproductive cough, nausea, diarrhea, fevers, and nasal congestion, present since Friday. She was positive for COVID in the ED. Patient does not recall taking her Nucynta this evening, and she denies suicidal or homicidal ideation. Denies auditory or visual hallucinations, or history of prior overdoses. Denies any current dysuria. - Review of Systems Constitutional: Fever, Chills, Fatigue, Weakness Eyes: No Symptoms Ears, Nose, & Throat: Nose Congestion, Sinus Drainage, Throat Pain Respiratory: Cough (Nonproductive), No Orthopnea, No Short Of Breath, No Wheezing Cardiac: No Chest Pain, No Edema Abdominal/Gastrointestinal: Nausea, Vomiting, Diarrhea, No Hematemesis, No Hematochezia, No Melena Genitourinary Symptoms: No Dysuria, No Frequency, No Hematuria Skin: Other (Chronic ischemic changes over left first through fourth distal toes, and right second and third distal toes, with associated pain), No Cellulitis Psychological: No Anxiety, No Depression, No Suicidal Ideations, No Homicidal Ideations, No Hallucinations All Other Systems: Reviewed and Negative (Note, below medication list is not verified) Medications & Allergies Home Medications: Home Medication List Atorvastatin Calcium 40 mg PO DAILY 08/02/23 [History Confirmed 08/02/23] Dicyclomine HCl 20 mg [Bentyl 20 mg] 20 mg PO QID 08/02/23 [History Confirmed 08/02/23] Duloxetine HCl 30 mg [Cymbalta 30 MG Capsule] 30 mg PO DAILY 08/02/23 [History Confirmed 08/02/23] Furosemide [Lasix] 20 mg PO DAILY 08/02/23 [History Confirmed 08/02/23] Gentian Holli 0 ml TP DAILY 08/02/23 [History Confirmed 08/02/23] Lurasidone HCl 40 mg PO DAILY 08/02/23 [History Confirmed 08/02/23] Nitroglycerin [Nitro-Bid] 1 inch TOP DAILY 08/02/23 [History Confirmed 08/02/23] Potassium Chloride 20 meq PO DAILY 08/02/23 [History Confirmed 08/02/23] Prazosin HCl 1 mg PO HS 08/02/23 [History Confirmed 08/02/23] Allergies/Adverse Reactions: Allergies Allergy/AdvReac Type Severity Reaction Status Date / Time Sulfa (Sulfonamide Allergy Intermediate Vomiting Verified 08/06/23 15:39 Antibiotics) ketorolac [From Toradol] Allergy Unknown Verified 08/06/23 15:39 bee venom protein (honey bee) Allergy Verified 08/06/23 15:39 methylprednisolone Allergy anger Verified 08/06/23 15:39 [From Solu-Medrol] sumatriptan [From Imitrex] Allergy Verified 08/06/23 15:39 nitrofurantoin AdvReac Verified 08/06/23 15:39 [From Macrobid] tramadol AdvReac Nausea Verified 08/06/23 15:39 flu vaccine Allergy Intermediate Hoarseness Uncoded 08/06/23 15:39 of voice - Past Medical History Past Medical History: Yes Neurological History: Migraines ENT History: No Pertinent History Cardiac History: Peripheral Vascular Disease (Bilateral ischemic toes, awaiting demarcation for plan for surgery) Respiratory History: No Pertinent History Endocrine Medical History: No Pertinent History Musculoskelatal History: Fibromyalgia GI Medical History: Gallbladder Disease Pyscho-Social History: Bipolar Reproductive Disorders: Other Comment: kidney stones, born with 1 kidney (left only), OVERDOSE - Female History Are you now?: No - Past Surgical History Past Surgical History: Yes Neuro Surgical History: No Pertinent History Cardiac History: No Pertinent History Respiratory Surgery: No Pertinent History GI Surgical History: Bowel Surgery, Cholecystectomy Genitourinary Surgical Hx: No Pertinent History Musculskeletal Surgical Hx: No Pertinent History Female Surgical History: Hysterectomy, Section, Tubal Ligation Other Surgical History: skin cancer removed twice, Umbilical hernia repair. ruptured hernia- colostomy and reversal Significant Family History: no pertinent family hx - Social History Smoking Status: Current every day smoker How long have you smoked: 20yrs Exposure to second hand smoke: Yes Alcohol: Rarely Drug Use: methamphetamines - Social Determinants of Health Will the patient participate in the screening: Unable to obtain - Physical Exam Vital Signs: Vital Signs - 24 hr Temp Pulse Resp BP BP Pulse Ox 08/06/23 20:00 98.1 F 77 17 107/62 97 08/06/23 19:45 21 109/72 08/06/23 19:30 13 98/68 08/06/23 19:15 79 13 114/73 08/06/23 19:08 72 15 106/76 08/06/23 19:01 78 10 L 66/55 98 08/06/23 18:55 76 13 77/52 98 08/06/23 18:54 94 L 08/06/23 18:54 79 20 99 08/06/23 18:30 80 16 91/73 08/06/23 18:15 79 16 87/64 08/06/23 18:00 81 10 L 91/56 100 08/06/23 17:45 80 12 86/66 100 08/06/23 17:30 82 11 L 94/60 08/06/23 17:15 81 14 96/65 100 08/06/23 17:00 99.3 F 77 13 90/75 94 L 08/06/23 16:59 81 12 95/69 08/06/23 16:58 81 12 99 08/06/23 16:50 76 16 08/06/23 16:48 78 20 08/06/23 16:30 75 12 110/86 08/06/23 16:24 82 16 97/71 100 08/06/23 16:00 83 13 97/61 95 08/06/23 15:38 97.4 F 91 H 22 127/87 94 L 08/06/23 15:35 84 10 L 127/87 GEN: Lying in bed in no acute distress NEURO: No focal deficits CV: Regular rate & rhythm, no murmurs, no edema PULM: Clear to auscultation bilaterally, no work of breathing, on room air ABD: Soft, non-distended, normoactive bowel sounds PSYCH: Awake, mostly alert, although at times became more lethargic. Oriented. Denies SI/HI/AVH SKIN: Distal ends of right second and third and left first through fourth toes all have dry eschar with no surrounding cellulitis Results - Labs Lab/Micro Results: Lab Results-Last 24 Hours 08/06/23 08/06/23 08/06/23 Range/Units 15:38 15:45 15:45 WBC 11.5 H (4.0-10.5) x10^3/uL RBC 3.51 L (4.1-5.4) x10^6/uL Hgb 10.5 L (12.0-16.0) g/dL Hct 33.8 L (35-47) % MCV 96.3 (78-100) fL MCH 29.9 (26-32) pg MCHC 31.1 L (32-36) g/dL RDW 13.2 (11.5-14.0) % Plt Count 436 (150-450) x10^3/uL MPV 8.5 (7.5-11.0) fL Gran % 78.2 H (36.0-66.0) % Immature Gran % (Auto) 0.4 (0.00-0.4) % Nucleat RBC Rel Count 0.0 (0.00-0.1) % Eos # (Auto) 0.07 (0-0.5) x10^3/uL Immature Gran # (Auto) 0.05 H (0.00-0.03) x10^3u/L Absolute Lymphs (auto) 1.74 (1.0-4.6) x10^3/uL Absolute Monos (auto) 0.62 (0.0-1.3) x10^3/uL Absolute Nucleated RBC 0.00 (0.00-0.01) x10^3u/L Lymphocytes % 15.1 L (24.0-44.0) % Monocytes % 5.4 (0.0-12.0) % Eosinophils % 0.6 (0.00-5.0) % Basophils % 0.3 (0.0-0.4) % Absolute Granulocytes 9.00 H (1.4-6.9) x10^3/uL Basophils # 0.03 (0-0.4) x10^3/uL Puncture Site pCO2 (35-45) mmHg pO2 (75-100) mmHg Base Excess (-2.0-2.0) O2 Saturation (94-100) g/dF ABG pH (7.35-7.45) ABG HCO3 (22-28) ABG O2 Sat (Measured) (95-100) % David Test A-a Gradient a/A Ratio Hemoglobin Carboxyhemoglobin (0.0-6.9) % THgb Methemoglobin (1.4-1.5) % Temperature C POC O2 Flow Rate % Sodium 137 (135-145) mmol/L Potassium 3.6 (3.5-5.1) mmol/L Chloride 110 H (98-107) mmol/L Carbon Dioxide 15 L* (22-30) mmol/L Anion Gap 16.1 H (5-15) MEQ/L BUN 16 (7-17) mg/dL Creatinine 0.85 (0.52-1.04) mg/dL Estimated GFR 85.5 ML/MIN Glucose 89 (74-106) mg/dL Calcium 9.0 (8.4-10.2) mg/dL Total Bilirubin < 0.10 L (0.2-1.3) mg/dL AST 24 (14-36) U/L ALT 15 (0-35) U/L Alkaline Phosphatase 113 (38-126) U/L Ammonia 30 (9-30) umol/L Serum Total Protein 7.3 (6.3-8.2) g/dL Albumin 3.7 (3.5-5.0) g/dL Urine Color (Yellow) Urine Appearance (Clear) Urine pH (4.6-8.0) Ur Specific [place] (1.005-1.030) Urine Protein (Negative) Urine Glucose (UA) (Negative) mg/dL Urine Ketones (Negative) Urine Blood (Negative) Urine Nitrite (Negative) Urine Bilirubin (Negative) Urine Urobilinogen (0.2) mg/dL Ur Leukocyte Esterase (Negative) U Hyaline Cast (Auto) (0-2) /LPF Urine Microscopic RBC (0-5) /HPF Urine Microscopic WBC (0-5) /HPF Ur Epithelial Cells (None Seen) /HPF Urine Bacteria (None Seen) /HPF Urine Culture Reflexed (NO) Salicylates < 1.0 L (2-20) mg/dL Urine Opiates Level (NEGATIVE) Ur Methadone (NEGATIVE) Acetaminophen < 10 L (10-30) ug/ml Urine Barbiturates (NEGATIVE) Ur Phencyclidine (PCP) (NEGATIVE) Urine Amphetamine (NEGATIVE) U Benzodiazepine Level (NEGATIVE) Urine Cocaine (NEGATIVE) Urine Marijuana (THC) (NEGATIVE) Ethyl Alcohol < 10 (0-10) mg/dL Influenza Type A Ag (NEGATIVE) Influenza Type B Ag (NEGATIVE) RSV (PCR) (NEGATIVE) SARS-CoV-2 (PCR) (NEGATIVE) 08/06/23 08/06/23 08/06/23 Range/Units 15:56 15:56 16:00 WBC (4.0-10.5) x10^3/uL RBC (4.1-5.4) x10^6/uL Hgb (12.0-16.0) g/dL Hct (35-47) % MCV (78-100) fL MCH (26-32) pg MCHC (32-36) g/dL RDW (11.5-14.0) % Plt Count (150-450) x10^3/uL MPV (7.5-11.0) fL Gran % (36.0-66.0) % Immature Gran % (Auto) (0.00-0.4) % Nucleat RBC Rel Count (0.00-0.1) % Eos # (Auto) (0-0.5) x10^3/uL Immature Gran # (Auto) (0.00-0.03) x10^3u/L Absolute Lymphs (auto) (1.0-4.6) x10^3/uL Absolute Monos (auto) (0.0-1.3) x10^3/uL Absolute Nucleated RBC (0.00-0.01) x10^3u/L Lymphocytes % (24.0-44.0) % Monocytes % (0.0-12.0) % Eosinophils % (0.00-5.0) % Basophils % (0.0-0.4) % Absolute Granulocytes (1.4-6.9) x10^3/uL Basophils # (0-0.4) x10^3/uL Puncture Site pCO2 (35-45) mmHg pO2 (75-100) mmHg Base Excess (-2.0-2.0) O2 Saturation (94-100) g/dF ABG pH (7.35-7.45) ABG HCO3 (22-28) ABG O2 Sat (Measured) (95-100) % David Test A-a Gradient a/A Ratio Hemoglobin Carboxyhemoglobin (0.0-6.9) % THgb Methemoglobin (1.4-1.5) % Temperature C POC O2 Flow Rate % Sodium (135-145) mmol/L Potassium (3.5-5.1) mmol/L Chloride (98-107) mmol/L Carbon Dioxide (22-30) mmol/L Anion Gap (5-15) MEQ/L BUN (7-17) mg/dL Creatinine (0.52-1.04) mg/dL Estimated GFR ML/MIN Glucose (74-106) mg/dL Calcium (8.4-10.2) mg/dL Total Bilirubin (0.2-1.3) mg/dL AST (14-36) U/L ALT (0-35) U/L Alkaline Phosphatase (38-126) U/L Ammonia (9-30) umol/L Serum Total Protein (6.3-8.2) g/dL Albumin (3.5-5.0) g/dL Urine Color Yellow (Yellow) Urine Appearance Clear (Clear) Urine pH 6.5 (4.6-8.0) Ur Specific [place] 1.020 (1.005-1.030) Urine Protein 100 A (Negative) Urine Glucose (UA) Negative (Negative) mg/dL Urine Ketones Negative (Negative) Urine Blood Negative (Negative) Urine Nitrite Positive A (Negative) Urine Bilirubin Negative (Negative) Urine Urobilinogen 0.2 (0.2) mg/dL Ur Leukocyte Esterase Trace A (Negative) U Hyaline Cast (Auto) NONE SEEN (0-2) /LPF Urine Microscopic RBC 0-2 (0-5) /HPF Urine Microscopic WBC 21-50 A (0-5) /HPF Ur Epithelial Cells None Seen (None Seen) /HPF Urine Bacteria Many A (None Seen) /HPF Urine Culture Reflexed ORDERED SEPARATELY (NO) Salicylates (2-20) mg/dL Urine Opiates Level NEGATIVE (NEGATIVE) Ur Methadone NEGATIVE (NEGATIVE) Acetaminophen (10-30) ug/ml Urine Barbiturates NEGATIVE (NEGATIVE) Ur Phencyclidine (PCP) NEGATIVE (NEGATIVE) Urine Amphetamine NEGATIVE (NEGATIVE) U Benzodiazepine Level NEGATIVE (NEGATIVE) Urine Cocaine NEGATIVE (NEGATIVE) Urine Marijuana (THC) NEGATIVE (NEGATIVE) Ethyl Alcohol (0-10) mg/dL Influenza Type A Ag NEGATIVE (NEGATIVE) Influenza Type B Ag NEGATIVE (NEGATIVE) RSV (PCR) NEGATIVE (NEGATIVE) SARS-CoV-2 (PCR) POSITIVE A (NEGATIVE) 08/06/23 Range/Units 18:07 WBC (4.0-10.5) x10^3/uL RBC (4.1-5.4) x10^6/uL Hgb (12.0-16.0) g/dL Hct (35-47) % MCV (78-100) fL MCH (26-32) pg MCHC (32-36) g/dL RDW (11.5-14.0) % Plt Count (150-450) x10^3/uL MPV (7.5-11.0) fL Gran % (36.0-66.0) % Immature Gran % (Auto) (0.00-0.4) % Nucleat RBC Rel Count (0.00-0.1) % Eos # (Auto) (0-0.5) x10^3/uL Immature Gran # (Auto) (0.00-0.03) x10^3u/L Absolute Lymphs (auto) (1.0-4.6) x10^3/uL Absolute Monos (auto) (0.0-1.3) x10^3/uL Absolute Nucleated RBC (0.00-0.01) x10^3u/L Lymphocytes % (24.0-44.0) % Monocytes % (0.0-12.0) % Eosinophils % (0.00-5.0) % Basophils % (0.0-0.4) % Absolute Granulocytes (1.4-6.9) x10^3/uL Basophils # (0-0.4) x10^3/uL Puncture Site LBA pCO2 34 L (35-45) mmHg pO2 107 H (75-100) mmHg Base Excess -9.8 L (-2.0-2.0) O2 Saturation 98.2 (94-100) g/dF ABG pH 7.28 L (7.35-7.45) ABG HCO3 16.0 L* (22-28) ABG O2 Sat (Measured) 98.7 (95-100) % David Test yes A-a Gradient 50 a/A Ratio 0.68 Hemoglobin 10.1 Carboxyhemoglobin 0.6 (0.0-6.9) % THgb Methemoglobin 0.0 L (1.4-1.5) % Temperature 37.0 C POC O2 Flow Rate 28 % Sodium (135-145) mmol/L Potassium 3.5 (3.5-5.1) mmol/L Chloride (98-107) mmol/L Carbon Dioxide (22-30) mmol/L Anion Gap (5-15) MEQ/L BUN (7-17) mg/dL Creatinine (0.52-1.04) mg/dL Estimated GFR ML/MIN Glucose (74-106) mg/dL Calcium (8.4-10.2) mg/dL Total Bilirubin (0.2-1.3) mg/dL AST (14-36) U/L ALT (0-35) U/L Alkaline Phosphatase (38-126) U/L Ammonia (9-30) umol/L Serum Total Protein (6.3-8.2) g/dL Albumin (3.5-5.0) g/dL Urine Color (Yellow) Urine Appearance (Clear) Urine pH (4.6-8.0) Ur Specific [place] (1.005-1.030) Urine Protein (Negative) Urine Glucose (UA) (Negative) mg/dL Urine Ketones (Negative) Urine Blood (Negative) Urine Nitrite (Negative) Urine Bilirubin (Negative) Urine Urobilinogen (0.2) mg/dL Ur Leukocyte Esterase (Negative) U Hyaline Cast (Auto) (0-2) /LPF Urine Microscopic RBC (0-5) /HPF Urine Microscopic WBC (0-5) /HPF Ur Epithelial Cells (None Seen) /HPF Urine Bacteria (None Seen) /HPF Urine Culture Reflexed (NO) Salicylates (2-20) mg/dL Urine Opiates Level (NEGATIVE) Ur Methadone (NEGATIVE) Acetaminophen (10-30) ug/ml Urine Barbiturates (NEGATIVE) Ur Phencyclidine (PCP) (NEGATIVE) Urine Amphetamine (NEGATIVE) U Benzodiazepine Level (NEGATIVE) Urine Cocaine (NEGATIVE) Urine Marijuana (THC) (NEGATIVE) Ethyl Alcohol (0-10) mg/dL Influenza Type A Ag (NEGATIVE) Influenza Type B Ag (NEGATIVE) RSV (PCR) (NEGATIVE) SARS-CoV-2 (PCR) (NEGATIVE) - Radiology Impressions Radiology Exams & Impressions: Radiology Procedures Category Date Time Status HEAD WITHOUT CONTRAST [CT] Stat Exams 08/06/23 18:[address] head radiology read pending, but no obvious intracranial bleed on my read. (Images reviewed) - Other Procedures and Tests Respiratory Therapy 08/06/23 20:34 Respiratory Therapy Consult ONCE Assessment/Plan (1) Narcotic overdose Current Visit: Yes Status: Acute Assessment & Plan: 48-year-old woman with a history of bipolar disorder, methamphetamine abuse, tobacco dependence, PAD, and prior repeated medication overdoses, admitted now with respiratory depression and narcotic overdose, as well as COVID-19. ## Narcotic overdose with consumption of up to 36 pills of Nucynta 100 mg. Patient required Narcan in the ED, with resolution of bradycardia and hypoxia. Patient waking up more now, but is intermittently lethargic. Poison center was contacted, and recommended PRN Narcan and observation. Patient denies suicidal ideation currently. It is possible that she has not been taking her psychiatric medications for the last few days secondary to her severe nausea and diarrhea, making her more prone to overdose Admitted to ICU and observe overnight One-to-one observation with suicide precautions Will consult behavioral health in the morning for evaluation once patient is able to communicate better ## Bipolar disorder with suspected suicide attempt patient notes that her lurasidone dose was recently adjusted, but we were unable to confirm her dosing and is alone at bedside. Behavioral health consult in the morning as above Confirm her home medications in the morning, and resume her lurasidone and Cymbalta ## COVID-19 without requiring oxygen. Patient is not otherwise high risk, so not a candidate for remdesivir or Paxlovid. PRN nausea and diarrhea medications ## Metabolic acidosis this appears to be somewhat chronic for the patient, although she had a similar presentation with overdose of multiple medications in February. Salicylate levels are negative, and no other signs of salicylate toxicity. Change LR to bicarb drip at 100 mL/h Repeat bicarbonate levels, ABG in the morning ## Possible acute cystitis history is a little bit unclear, but patient denies any dysuria currently, although she has pyuria on UA. Continue Rocephin 1 g IV q.24 hours Follow-up urine cultures CODE STATUS: Full code Prophylaxis: Observation Diet: Regular Code(s): T40.601A - POISONING BY UNSP NARCOTICS, ACCIDENTAL, INIT Telemedicine Encounter - Telemedicine Encounter Telemedicine Encounter: The entirety of this encounter was performed via Telemedicine"
[2023-08-06] MEDS: Zofran 4 MG/2 ML VIAL IV PRN (23:02)
[2023-08-07] MEDS ORDERED: SODIUM BICARBONATE 50 MEQ/50 ML ABBOJECT IV ONE (00:25)
[2023-08-07] MEDS ORDERED: Dextrose 5%/Water IV Soln. 1000 ML 1,000 ML IV ONE (00:26)
[2023-08-07] MEDS: Sodium Bicarbonate 50 MEQ/50 ML VIAL*** 150 MEQ in Dextrose 5%/Water IV Soln. 1000 ML 1... IV SCH (01:05)
[2023-08-07 06:58] LABS: 027 TOX PROD PRESUMPTIVE NEGATIVE (NEGATIVE); TOXIGENIC C. DIFF ORG NEGATIVE (NEGATIVE)
[2023-08-07] MEDS: Lactated Ringers 1,000 ML IV SCH (08:04)
[2023-08-07 08:18] LABS: Absolute Neutrophil Ct (ANC) 10.81 x10^3/uL (1.4-6.9); BASOPHIL % 0.1 % (0.0-0.4); Basophil (Absolute #) 0.01 x10^3/uL (0-0.4); Eosinophil % 0.9 % (0.00-5.0); Eosinophil (Absolute #) 0.12 x10^3/uL (0-0.5); Hemoglobin 10.5 g/dL (12.0-16.0); IMMATURE GRAN # 0.04 x10^3u/L (0.00-0.03); IMMATURE GRAN % 0.3 % (0.00-0.4); Lymphocytes % 11.7 % (24.0-44.0); Mean Cell Volume 93.5 fL (78-100); Mean Corpuscular Hemoglobin 29.7 pg (26-32); Mean Corpuscular Hgb Concent. 31.8 g/dL (32-36); Mean Platelet Volume 8.6 fL (7.5-11.0); Monocyte (Absolute #) 0.31 x10^3/uL (0.0-1.3); Monocytes % 2.4 % (0.0-12.0); Neutrophil % 84.6 % (36.0-66.0); Platelet Count 408 x10^3/uL (150-450); Red Blood Count 3.53 x10^6/uL (4.1-5.4); Red Cell Distribution Width 13.2 % (11.5-14.0); White Blood Count 12.8 x10^3/uL (4.0-10.5)
--- NOTE | 2023-08-07 08:35 | XRAY ---
Indication: Lethargy. Overdose. Multiple contiguous axial images obtained through the head without contrast. Comparison: July 14, 2023 Study is now degraded by mild motion artifact throughout. No gross acute intracranial hemorrhage, abnormal extra-axial fluid collection, or mass effect. Fourth ventricle is midline without hydrocephalus. [place]-white matter differentiation preserved. Bony calvarium grossly intact. Minimal mucosal thickening both ethmoid and right sphenoid sinuses. Mastoid air cells are clear. Impression: Motion artifact. Minimal paranasal sinus disease. Remaining CT head without contrast exam grossly negative.
[2023-08-07 08:37] LABS: ALBUMIN 3.2 g/dL (3.5-5.0); ANION GAP 12.7 MEQ/L (5-15); BILIRUBIN,TOTAL 0.2 mg/dL (0.2-1.3); Calcium 8.1 mg/dL (8.4-10.2); Creatinine 1 0.58 mg/dL (0.52-1.04); Total Protein 6.4 g/dL (6.3-8.2)
[2023-08-07 08:58] LABS: Potassium 2.4 mmol/L (3.5-5.1)
[2023-08-07] MEDS: Klor Con PO ONE (09:47)
[2023-08-07] MEDS: Lomotil PO SCH (10:42)
--- NOTE | 2023-08-07 11:09 | PCM.NOTE ---
Date and Time: 08/07/23 1109 Subjective Assessment: 48-year-old woman with a history of bipolar disorder, methamphetamine abuse, tobacco dependence, PAD, and prior repeated medication overdoses, admitted now with respiratory depression and narcotic overdose, as well as COVID-19. 08/07/2023: Today patient is awake and alert and complaining of cramps in her legs. Denies suicidal attempt. Says she took pain medication for the pain in her leg and says she does not remember how many she took. Has also been having diarrhea, likely from withdrawal. Await psych consult. Potassium was critically low this morning at 2.4. - Review of Systems Constitutional: Weakness Eyes: No Symptoms Ears, Nose, & Throat: No Symptoms Respiratory: No Cough, No Short Of Breath Cardiac: No Chest Pain, No Edema, No Syncope Abdominal/Gastrointestinal: Diarrhea Genitourinary Symptoms: No Dysuria Musculoskeletal: Myalgias (legs cramps) Skin: No Rash Neurological: No Dizziness, No Focal Weakness, No Sensory Changes Objective Exam General Appearance: mild distress, anxiety Neurologic Exam: alert, oriented x 3, cooperative, nml cerebellar function, sensation nml, No motor deficits Skin Exam: normal color, warm, dry Eye Exam: PERRL, EOMI, eyes nml inspection Ears, Nose, Throat Exam: normal ENT inspection, pharynx normal, moist mucous membranes Neck Exam: normal inspection, non-tender, supple, full range of motion Respiratory Exam: normal breath sounds, lungs clear, No respiratory distress Cardiovascular Exam: regular rate/rhythm, normal heart sounds Gastrointestinal/Abdomen Exam: soft, No tenderness, No mass Extremity Exam: normal inspection, normal range of motion Objective Data Vital Signs: Vital Signs - 24 hr Temp Pulse Resp BP BP Pulse Ox 08/07/23 08:14 98 08/07/23 08:00 98.9 F 79 25 H 117/75 97 08/07/23 04:00 95 H 17 111/87 96 08/07/23 01:00 81 08/07/23 00:00 99.3 F 80 20 114/76 98 08/06/23 21:36 72 12 98 08/06/23 21:15 98.1 F 72 14 111/71 97 08/06/23 20:45 19 107/72 08/06/23 20:31 98.3 F 14 106/68 08/06/23 20:30 15 08/06/23 20:20 15 08/06/23 20:17 16 08/06/23 20:03 25 H 105/78 08/06/23 20:00 98.1 F 77 17 107/62 97 08/06/23 19:45 21 109/72 08/06/23 19:30 13 98/68 08/06/23 19:15 79 13 114/73 08/06/23 19:08 72 15 106/76 08/06/23 19:01 78 10 L 66/55 98 08/06/23 18:55 76 13 77/52 98 08/06/23 18:54 94 L 08/06/23 18:54 79 20 99 08/06/23 18:30 80 16 91/73 08/06/23 18:15 79 16 87/64 08/06/23 18:00 81 10 L 91/56 100 08/06/23 17:45 80 12 86/66 100 08/06/23 17:30 82 11 L 94/60 08/06/23 17:15 81 14 96/65 100 08/06/23 17:00 99.3 F 77 13 90/75 94 L 08/06/23 16:59 81 12 95/69 08/06/23 16:58 81 12 99 08/06/23 16:50 76 16 08/06/23 16:48 78 20 08/06/23 16:30 75 12 110/86 08/06/23 16:24 82 16 97/71 100 08/06/23 16:00 83 13 97/61 95 08/06/23 15:38 97.4 F 91 H 22 127/87 94 L 08/06/23 15:35 84 10 L 127/87 Pain Assessment - Last Documented Pain Intensity 7 Intake and Output: Intake & Output 08/04/23 08/05/23 08/06/23 08/07/23 11:59 11:59 11:59 11:59 Output Total 900 Balance -900 Weight 58.3 kg Lab Results: Lab Results-Last 24 Hours 08/06/23 08/06/23 08/06/23 Range/Units 15:38 15:45 15:45 WBC 11.5 H (4.0-10.5) x10^3/uL RBC 3.51 L (4.1-5.4) x10^6/uL Hgb 10.5 L (12.0-16.0) g/dL Hct 33.8 L (35-47) % MCV 96.3 (78-100) fL MCH 29.9 (26-32) pg MCHC 31.1 L (32-36) g/dL RDW 13.2 (11.5-14.0) % Plt Count 436 (150-450) x10^3/uL MPV 8.5 (7.5-11.0) fL Gran % 78.2 H (36.0-66.0) % Immature Gran % (Auto) 0.4 (0.00-0.4) % Nucleat RBC Rel Count 0.0 (0.00-0.1) % Eos # (Auto) 0.07 (0-0.5) x10^3/uL Immature Gran # (Auto) 0.05 H (0.00-0.03) x10^3u/L Absolute Lymphs (auto) 1.74 (1.0-4.6) x10^3/uL Absolute Monos (auto) 0.62 (0.0-1.3) x10^3/uL Absolute Nucleated RBC 0.00 (0.00-0.01) x10^3u/L Lymphocytes % 15.1 L (24.0-44.0) % Monocytes % 5.4 (0.0-12.0) % Eosinophils % 0.6 (0.00-5.0) % Basophils % 0.3 (0.0-0.4) % Absolute Granulocytes 9.00 H (1.4-6.9) x10^3/uL Basophils # 0.03 (0-0.4) x10^3/uL Puncture Site pCO2 (35-45) mmHg pO2 (75-100) mmHg Base Excess (-2.0-2.0) O2 Saturation (94-100) g/dF ABG pH (7.35-7.45) ABG HCO3 (22-28) ABG O2 Sat (Measured) (95-100) % David Test A-a Gradient a/A Ratio Hemoglobin Carboxyhemoglobin (0.0-6.9) % THgb Methemoglobin (1.4-1.5) % Temperature C POC O2 Flow Rate % Sodium 137 (135-145) mmol/L Potassium 3.6 (3.5-5.1) mmol/L Chloride 110 H (98-107) mmol/L Carbon Dioxide 15 L* (22-30) mmol/L Anion Gap 16.1 H (5-15) MEQ/L BUN 16 (7-17) mg/dL Creatinine 0.85 (0.52-1.04) mg/dL Estimated GFR 85.5 ML/MIN Glucose 89 (74-106) mg/dL Calcium 9.0 (8.4-10.2) mg/dL Magnesium (1.6-2.3) mg/dL Total Bilirubin < 0.10 L (0.2-1.3) mg/dL AST 24 (14-36) U/L ALT 15 (0-35) U/L Alkaline Phosphatase 113 (38-126) U/L Ammonia 30 (9-30) umol/L Serum Total Protein 7.3 (6.3-8.2) g/dL Albumin 3.7 (3.5-5.0) g/dL Urine Color (Yellow) Urine Appearance (Clear) Urine pH (4.6-8.0) Ur Specific State Road (1.005-1.030) Urine Protein (Negative) Urine Glucose (UA) (Negative) mg/dL Urine Ketones (Negative) Urine Blood (Negative) Urine Nitrite (Negative) Urine Bilirubin (Negative) Urine Urobilinogen (0.2) mg/dL Ur Leukocyte Esterase (Negative) U Hyaline Cast (Auto) (0-2) /LPF Urine Microscopic RBC (0-5) /HPF Urine Microscopic WBC (0-5) /HPF Ur Epithelial Cells (None Seen) /HPF Urine Bacteria (None Seen) /HPF Urine Culture Reflexed (NO) Salicylates < 1.0 L (2-20) mg/dL Urine Opiates Level (NEGATIVE) Ur Methadone (NEGATIVE) Acetaminophen < 10 L (10-30) ug/ml Urine Barbiturates (NEGATIVE) Ur Phencyclidine (PCP) (NEGATIVE) Urine Amphetamine (NEGATIVE) U Benzodiazepine Level (NEGATIVE) Urine Cocaine (NEGATIVE) Urine Marijuana (THC) (NEGATIVE) Ethyl Alcohol < 10 (0-10) mg/dL C. difficile Screen (NEGATIVE) C.difficile 027-NAP1-B1 (NEGATIVE) Influenza Type A Ag (NEGATIVE) Influenza Type B Ag (NEGATIVE) RSV (PCR) (NEGATIVE) SARS-CoV-2 (PCR) (NEGATIVE) 08/06/23 08/06/23 08/06/23 Range/Units 15:56 15:56 16:00 WBC (4.0-10.5) x10^3/uL RBC (4.1-5.4) x10^6/uL Hgb (12.0-16.0) g/dL Hct (35-47) % MCV (78-100) fL MCH (26-32) pg MCHC (32-36) g/dL RDW (11.5-14.0) % Plt Count (150-450) x10^3/uL MPV (7.5-11.0) fL Gran % (36.0-66.0) % Immature Gran % (Auto) (0.00-0.4) % Nucleat RBC Rel Count (0.00-0.1) % Eos # (Auto) (0-0.5) x10^3/uL Immature Gran # (Auto) (0.00-0.03) x10^3u/L Absolute Lymphs (auto) (1.0-4.6) x10^3/uL Absolute Monos (auto) (0.0-1.3) x10^3/uL Absolute Nucleated RBC (0.00-0.01) x10^3u/L Lymphocytes % (24.0-44.0) % Monocytes % (0.0-12.0) % Eosinophils % (0.00-5.0) % Basophils % (0.0-0.4) % Absolute Granulocytes (1.4-6.9) x10^3/uL Basophils # (0-0.4) x10^3/uL Puncture Site pCO2 (35-45) mmHg pO2 (75-100) mmHg Base Excess (-2.0-2.0) O2 Saturation (94-100) g/dF ABG pH (7.35-7.45) ABG HCO3 (22-28) ABG O2 Sat (Measured) (95-100) % David Test A-a Gradient a/A Ratio Hemoglobin Carboxyhemoglobin (0.0-6.9) % THgb Methemoglobin (1.4-1.5) % Temperature C POC O2 Flow Rate % Sodium (135-145) mmol/L Potassium (3.5-5.1) mmol/L Chloride (98-107) mmol/L Carbon Dioxide (22-30) mmol/L Anion Gap (5-15) MEQ/L BUN (7-17) mg/dL Creatinine (0.52-1.04) mg/dL Estimated GFR ML/MIN Glucose (74-106) mg/dL Calcium (8.4-10.2) mg/dL Magnesium (1.6-2.3) mg/dL Total Bilirubin (0.2-1.3) mg/dL AST (14-36) U/L ALT (0-35) U/L Alkaline Phosphatase (38-126) U/L Ammonia (9-30) umol/L Serum Total Protein (6.3-8.2) g/dL Albumin (3.5-5.0) g/dL Urine Color Yellow (Yellow) Urine Appearance Clear (Clear) Urine pH 6.5 (4.6-8.0) Ur Specific State Road 1.020 (1.005-1.030) Urine Protein 100 A (Negative) Urine Glucose (UA) Negative (Negative) mg/dL Urine Ketones Negative (Negative) Urine Blood Negative (Negative) Urine Nitrite Positive A (Negative) Urine Bilirubin Negative (Negative) Urine Urobilinogen 0.2 (0.2) mg/dL Ur Leukocyte Esterase Trace A (Negative) U Hyaline Cast (Auto) NONE SEEN (0-2) /LPF Urine Microscopic RBC 0-2 (0-5) /HPF Urine Microscopic WBC 21-50 A (0-5) /HPF Ur Epithelial Cells None Seen (None Seen) /HPF Urine Bacteria Many A (None Seen) /HPF Urine Culture Reflexed ORDERED SEPARATELY (NO) Salicylates (2-20) mg/dL Urine Opiates Level NEGATIVE (NEGATIVE) Ur Methadone NEGATIVE (NEGATIVE) Acetaminophen (10-30) ug/ml Urine Barbiturates NEGATIVE (NEGATIVE) Ur Phencyclidine (PCP) NEGATIVE (NEGATIVE) Urine Amphetamine NEGATIVE (NEGATIVE) U Benzodiazepine Level NEGATIVE (NEGATIVE) Urine Cocaine NEGATIVE (NEGATIVE) Urine Marijuana (THC) NEGATIVE (NEGATIVE) Ethyl Alcohol (0-10) mg/dL C. difficile Screen (NEGATIVE) C.difficile 027-NAP1-B1 (NEGATIVE) Influenza Type A Ag NEGATIVE (NEGATIVE) Influenza Type B Ag NEGATIVE (NEGATIVE) RSV (PCR) NEGATIVE (NEGATIVE) SARS-CoV-2 (PCR) POSITIVE A (NEGATIVE) 08/06/23 08/07/23 08/07/23 Range/Units 18:07 06:04 07:27 WBC 12.8 H (4.0-10.5) x10^3/uL RBC 3.53 L (4.1-5.4) x10^6/uL Hgb 10.5 L (12.0-16.0) g/dL Hct 33.0 L (35-47) % MCV 93.5 (78-100) fL MCH 29.7 (26-32) pg MCHC 31.8 L (32-36) g/dL RDW 13.2 (11.5-14.0) % Plt Count 408 (150-450) x10^3/uL MPV 8.6 (7.5-11.0) fL Gran % 84.6 H (36.0-66.0) % Immature Gran % (Auto) 0.3 (0.00-0.4) % Nucleat RBC Rel Count 0.0 (0.00-0.1) % Eos # (Auto) 0.12 (0-0.5) x10^3/uL Immature Gran # (Auto) 0.04 H (0.00-0.03) x10^3u/L Absolute Lymphs (auto) 1.50 (1.0-4.6) x10^3/uL Absolute Monos (auto) 0.31 (0.0-1.3) x10^3/uL Absolute Nucleated RBC 0.00 (0.00-0.01) x10^3u/L Lymphocytes % 11.7 L (24.0-44.0) % Monocytes % 2.4 (0.0-12.0) % Eosinophils % 0.9 (0.00-5.0) % Basophils % 0.1 (0.0-0.4) % Absolute Granulocytes 10.81 H (1.4-6.9) x10^3/uL Basophils # 0.01 (0-0.4) x10^3/uL Puncture Site LBA pCO2 34 L (35-45) mmHg pO2 107 H (75-100) mmHg Base Excess -9.8 L (-2.0-2.0) O2 Saturation 98.2 (94-100) g/dF ABG pH 7.28 L (7.35-7.45) ABG HCO3 16.0 L* (22-28) ABG O2 Sat (Measured) 98.7 (95-100) % David Test yes A-a Gradient 50 a/A Ratio 0.68 Hemoglobin 10.1 Carboxyhemoglobin 0.6 (0.0-6.9) % THgb Methemoglobin 0.0 L (1.4-1.5) % Temperature 37.0 C POC O2 Flow Rate 28 % Sodium (135-145) mmol/L Potassium 3.5 (3.5-5.1) mmol/L Chloride (98-107) mmol/L Carbon Dioxide (22-30) mmol/L Anion Gap (5-15) MEQ/L BUN (7-17) mg/dL Creatinine (0.52-1.04) mg/dL Estimated GFR ML/MIN Glucose (74-106) mg/dL Calcium (8.4-10.2) mg/dL Magnesium (1.6-2.3) mg/dL Total Bilirubin (0.2-1.3) mg/dL AST (14-36) U/L ALT (0-35) U/L Alkaline Phosphatase (38-126) U/L Ammonia (9-30) umol/L Serum Total Protein (6.3-8.2) g/dL Albumin (3.5-5.0) g/dL Urine Color (Yellow) Urine Appearance (Clear) Urine pH (4.6-8.0) Ur Specific State Road (1.005-1.030) Urine Protein (Negative) Urine Glucose (UA) (Negative) mg/dL Urine Ketones (Negative) Urine Blood (Negative) Urine Nitrite (Negative) Urine Bilirubin (Negative) Urine Urobilinogen (0.2) mg/dL Ur Leukocyte Esterase (Negative) U Hyaline Cast (Auto) (0-2) /LPF Urine Microscopic RBC (0-5) /HPF Urine Microscopic WBC (0-5) /HPF Ur Epithelial Cells (None Seen) /HPF Urine Bacteria (None Seen) /HPF Urine Culture Reflexed (NO) Salicylates (2-20) mg/dL Urine Opiates Level (NEGATIVE) Ur Methadone (NEGATIVE) Acetaminophen (10-30) ug/ml Urine Barbiturates (NEGATIVE) Ur Phencyclidine (PCP) (NEGATIVE) Urine Amphetamine (NEGATIVE) U Benzodiazepine Level (NEGATIVE) Urine Cocaine (NEGATIVE) Urine Marijuana (THC) (NEGATIVE) Ethyl Alcohol (0-10) mg/dL C. difficile Screen NEGATIVE (NEGATIVE) C.difficile 027-NAP1-B1 PRESUMPTIVE NEGATIVE (NEGATIVE) Influenza Type A Ag (NEGATIVE) Influenza Type B Ag (NEGATIVE) RSV (PCR) (NEGATIVE) SARS-CoV-2 (PCR) (NEGATIVE) 08/07/23 08/07/23 Range/Units 07:27 08:59 WBC (4.0-10.5) x10^3/uL RBC (4.1-5.4) x10^6/uL Hgb (12.0-16.0) g/dL Hct (35-47) % MCV (78-100) fL MCH (26-32) pg MCHC (32-36) g/dL RDW (11.5-14.0) % Plt Count (150-450) x10^3/uL MPV (7.5-11.0) fL Gran % (36.0-66.0) % Immature Gran % (Auto) (0.00-0.4) % Nucleat RBC Rel Count (0.00-0.1) % Eos # (Auto) (0-0.5) x10^3/uL Immature Gran # (Auto) (0.00-0.03) x10^3u/L Absolute Lymphs (auto) (1.0-4.6) x10^3/uL Absolute Monos (auto) (0.0-1.3) x10^3/uL Absolute Nucleated RBC (0.00-0.01) x10^3u/L Lymphocytes % (24.0-44.0) % Monocytes % (0.0-12.0) % Eosinophils % (0.00-5.0) % Basophils % (0.0-0.4) % Absolute Granulocytes (1.4-6.9) x10^3/uL Basophils # (0-0.4) x10^3/uL Puncture Site pCO2 (35-45) mmHg pO2 (75-100) mmHg Base Excess (-2.0-2.0) O2 Saturation (94-100) g/dF ABG pH (7.35-7.45) ABG HCO3 (22-28) ABG O2 Sat (Measured) (95-100) % David Test A-a Gradient a/A Ratio Hemoglobin Carboxyhemoglobin (0.0-6.9) % THgb Methemoglobin (1.4-1.5) % Temperature C POC O2 Flow Rate % Sodium 141 (135-145) mmol/L Potassium 2.4 L* D (3.5-5.1) mmol/L Chloride 112 H (98-107) mmol/L Carbon Dioxide 18 L (22-30) mmol/L Anion Gap 12.7 (5-15) MEQ/L BUN 9 (7-17) mg/dL Creatinine 0.58 (0.52-1.04) mg/dL Estimated GFR 113.0 ML/MIN Glucose 113 H (74-106) mg/dL Calcium 8.1 L (8.4-10.2) mg/dL Magnesium 1.7 (1.6-2.3) mg/dL Total Bilirubin 0.20 (0.2-1.3) mg/dL AST 21 (14-36) U/L ALT 13 (0-35) U/L Alkaline Phosphatase 92 (38-126) U/L Ammonia (9-30) umol/L Serum Total Protein 6.4 (6.3-8.2) g/dL Albumin 3.2 L (3.5-5.0) g/dL Urine Color (Yellow) Urine Appearance (Clear) Urine pH (4.6-8.0) Ur Specific State Road (1.005-1.030) Urine Protein (Negative) Urine Glucose (UA) (Negative) mg/dL Urine Ketones (Negative) Urine Blood (Negative) Urine Nitrite (Negative) Urine Bilirubin (Negative) Urine Urobilinogen (0.2) mg/dL Ur Leukocyte Esterase (Negative) U Hyaline Cast (Auto) (0-2) /LPF Urine Microscopic RBC (0-5) /HPF Urine Microscopic WBC (0-5) /HPF Ur Epithelial Cells (None Seen) /HPF Urine Bacteria (None Seen) /HPF Urine Culture Reflexed (NO) Salicylates (2-20) mg/dL Urine Opiates Level (NEGATIVE) Ur Methadone (NEGATIVE) Acetaminophen (10-30) ug/ml Urine Barbiturates (NEGATIVE) Ur Phencyclidine (PCP) (NEGATIVE) Urine Amphetamine (NEGATIVE) U Benzodiazepine Level (NEGATIVE) Urine Cocaine (NEGATIVE) Urine Marijuana (THC) (NEGATIVE) Ethyl Alcohol (0-10) mg/dL C. difficile Screen (NEGATIVE) C.difficile 027-NAP1-B1 (NEGATIVE) Influenza Type A Ag (NEGATIVE) Influenza Type B Ag (NEGATIVE) RSV (PCR) (NEGATIVE) SARS-CoV-2 (PCR) (NEGATIVE) Radiology Exams: Radiology Procedures Category Date Time Status HEAD WITHOUT CONTRAST [CT] Stat Exams 08/06/23 18:16 Completed Multi-Disciplinary Progress Notes: Multi-Disciplinary Progress Notes 08/07/23 05:25 Respiratory Note by Caitlin Echols PT REFUSED AM ABG Initialized on 08/07/23 05:25 - END OF NOTE Assessment/Plan (1) Narcotic overdose Current Visit: Yes Status: Acute Assessment & Plan: - Narcotic overdose with consumption of up to 37 pills of Nucynta 100 mg. Patient required Narcan in the ED, with resolution of bradycardia and hypoxia. Poison center was contacted, and recommended PRN Narcan and observation. - Patient denies suicidal ideation or attempt currently. -Admitted to ICU and observed overnight -One-to-one observation with suicide precautions - Await psych consult Code(s): T40.601A - POISONING BY UNSP NARCOTICS, ACCIDENTAL, INIT (2) Bipolar II disorder major depressive with atypical features Current Visit: No Status: Acute Assessment & Plan: - patient notes that her lurasidone dose was recently adjusted -behavioral health/psych to see and possibly resume her lurasidone and Cymbalta Code(s): F31.81 - BIPOLAR II DISORDER (3) COVID-19 Current Visit: Yes Status: Acute Assessment & Plan: -without requiring oxygen. Patient is not otherwise high risk, so not a candidate for remdesivir or Paxlovid. -PRN nausea and diarrhea medications Code(s): U07.1 - COVID-19 (4) Metabolic acidosis Current Visit: No Status: Acute Assessment & Plan: - this appears to be somewhat chronic for the patient, although she had a similar presentation with overdose of multiple medications in February. Salicylate levels are negative, and no other signs of salicylate toxicity. - Change LR to bicarb drip at 100 mL/h - Repeat bicarbonate levels, ABG in the morning 08/06: -bicarb normal. Stop bicarb drip Code(s): E87.20 - ACIDOSIS, UNSPECIFIED (5) UTI (urinary tract infection) with pyuria Current Visit: No Status: Acute Assessment & Plan: -history is a little bit unclear, but patient denies any dysuria currently, although she has pyuria on UA. - Continue Rocephin 1 g IV q.24 hours - Follow-up urine cultures Code(s): N39.0 - URINARY TRACT INFECTION, SITE NOT SPECIFIED (6) Diarrhea Current Visit: No Status: Acute Assessment & Plan: -related to COVID19 and/or withdrawal -lomotil ordered Code(s): R19.7 - DIARRHEA, UNSPECIFIED (7) Hypokalemia Current Visit: No Status: Acute Assessment & Plan: -severe at 2.4 this morning. Multiple repletions ordered Code(s): E87.6 - HYPOKALEMIA Telemedicine Encounter - Telemedicine Encounter Telemedicine Encounter: The entirety of this encounter was performed via Telemedicine"
[2023-08-07] MEDS: ROCEPHIN 1 GM / 100 ML NaCl 1 GM/100 ML IVPB IV SCH (11:28)
[2023-08-07] MEDS: TYLENOL EXTRA STRENGTH 500 MG PO PRN (11:35)
[2023-08-07 14:54] LABS: ISTAT CREA 0.4 mg/dL (0.6-1.3); ISTAT K 2.9 mmol/L (3.5-4.9); ISTAT iCA 0.99 mmol/L (1.12-1.32)
[2023-08-07] MEDS: Klor Con PO SCH (15:06)
[2023-08-08 05:03] LABS: Hematocrit 33.4 % (35-47); Hemoglobin 10.6 g/dL (12.0-16.0); Mean Cell Volume 94.4 fL (78-100); Mean Corpuscular Hemoglobin 29.9 pg (26-32); Mean Corpuscular Hgb Concent. 31.7 g/dL (32-36); Mean Platelet Volume 8.5 fL (7.5-11.0); Platelet Count 380 x10^3/uL (150-450); Red Blood Count 3.54 x10^6/uL (4.1-5.4); Red Cell Distribution Width 13.7 % (11.5-14.0)
[2023-08-08 05:18] LABS: ANION GAP 10.6 MEQ/L (5-15); BILIRUBIN,TOTAL 0.1 mg/dL (0.2-1.3); Calcium 8.6 mg/dL (8.4-10.2); Creatinine 1 0.57 mg/dL (0.52-1.04); EST GLOMERULAR FILTRATION RATE 113.4 ML/MIN; Potassium 3.7 mmol/L (3.5-5.1); Total Protein 6.5 g/dL (6.3-8.2)
[2023-08-08 07:14] VITALS: O2SAT 98
[2023-08-08 14:01] VITALS: PULSE 90
[2023-08-08] MEDS ORDERED: MEDICATION INTERVENTION MC SCH (15:00)
[2023-08-08] MEDS: Klor Con PO SCH (15:10)
[2023-08-08] MEDS: ECOTRIN 81 MG PO SCH (15:10)
[2023-08-08] MEDS: Cymbalta 30 MG Capsule PO SCH (15:10)
--- NOTE | 2023-08-08 15:33 | PCM.NOTE ---
Date and Time: 08/08/23 1528 Subjective Assessment: 48-year-old woman with a history of bipolar disorder, methamphetamine abuse, tobacco dependence, PAD, and prior repeated medication overdoses, admitted now with respiratory depression and narcotic overdose, as well as COVID-19. 08/07/2023: Today patient is awake and alert and complaining of cramps in her legs. Denies suicidal attempt. Says she took pain medication for the pain in her leg and says she does not remember how many she took. Has also been having diarrhea, likely from withdrawal. Await psych consult. Potassium was critically low this morning at 2.4. 08/08/23: Met with patient bedside. Endorses continued complaints of bilateral leg cramps. Continues to deny suicidal attempt but is agreeable this morning to IP psych, but changed her mind once patient's arrived. Of note, patient's continues to be verbally abusive to staff via telephone and in person. [facility] evaluation pending today, most likely will require ED for IP psych. Poison control has released patient today. Okay to resume home medications. Labs are now stable. Denies fever,cough, sob, cp, abdominal pain, BOONE, dizziness, N/V/D. - Review of Systems Constitutional: No Symptoms Eyes: No Symptoms Ears, Nose, & Throat: No Symptoms Respiratory: No Symptoms Cardiac: No Symptoms Abdominal/Gastrointestinal: No Symptoms Genitourinary Symptoms: No Symptoms Musculoskeletal: Other (BLE pain) Skin: No Symptoms Neurological: No Symptoms Psychological: Anxiety, Depression Endocrine: No Symptoms Hematologic/Lymphatic: No Symptoms Immunological/Allergic: No Symptoms Objective Exam General Appearance: no apparent distress Neurologic Exam: alert, oriented x 3, cooperative, agitation, depressed mood/affect Skin Exam: normal color Eye Exam: PERRL Ears, Nose, Throat Exam: normal ENT inspection Neck Exam: normal inspection Respiratory Exam: normal breath sounds, lungs clear Cardiovascular Exam: regular rate/rhythm, normal heart sounds Gastrointestinal/Abdomen Exam: soft, normal bowel sounds Extremity Exam: normal inspection Back Exam: normal inspection Pelvic Exam: deferred Rectal Exam: deferred Objective Data Vital Signs: Vital Signs - 24 hr Temp Pulse Resp BP Pulse Ox 08/08/23 12:00 90 20 118/83 08/08/23 08:00 77 08/08/23 07:13 98.0 F 84 17 100/66 98 08/08/23 04:00 98.7 F 66 17 106/67 95 08/08/23 00:01 70 08/08/23 00:00 72 22 106/75 96 08/07/23 20:00 80 08/07/23 19:57 98.5 F 80 24 109/84 97 08/07/23 16:16 68 25 H 106/72 97 08/07/23 16:00 69 Pain Assessment - Last Documented Pain Intensity 5 Pain Scale Used 0-10 Pain Scale Intake and Output: Intake & Output 08/06/23 08/07/23 08/08/23 08/09/23 11:59 11:59 11:59 11:59 Intake Total 3634 Output Total 900 2850 Balance -900 784 Weight 57.9 kg 53.6 kg Lab Results: Lab Results-Last 24 Hours 08/06/23 08/07/23 08/08/23 Range/Units 15:56 21:05 05:00 WBC 5.0 (4.0-10.5) x10^3/uL RBC 3.54 L (4.1-5.4) x10^6/uL Hgb 10.6 L (12.0-16.0) g/dL Hct 33.4 L (35-47) % MCV 94.4 (78-100) fL MCH 29.9 (26-32) pg MCHC 31.7 L (32-36) g/dL RDW 13.7 (11.5-14.0) % Plt Count 380 (150-450) x10^3/uL MPV 8.5 (7.5-11.0) fL Sodium (135-145) mmol/L Potassium 4.1 D (3.5-5.1) mmol/L Chloride (98-107) mmol/L Carbon Dioxide (22-30) mmol/L Anion Gap (5-15) MEQ/L BUN (7-17) mg/dL Creatinine (0.52-1.04) mg/dL Estimated GFR ML/MIN Glucose (74-106) mg/dL Calcium (8.4-10.2) mg/dL Total Bilirubin (0.2-1.3) mg/dL AST (14-36) U/L ALT (0-35) U/L Alkaline Phosphatase (38-126) U/L Serum Total Protein (6.3-8.2) g/dL Albumin (3.5-5.0) g/dL Urine Opiates Level NEGATIVE (NEGATIVE) Ur Methadone NEGATIVE (NEGATIVE) Urine Barbiturates NEGATIVE (NEGATIVE) Ur Phencyclidine (PCP) NEGATIVE (NEGATIVE) Urine Amphetamine NEGATIVE (NEGATIVE) U Benzodiazepine Level NEGATIVE (NEGATIVE) Urine Cocaine NEGATIVE (NEGATIVE) Urine Marijuana (THC) NEGATIVE (NEGATIVE) 08/08/23 Range/Units 05:00 WBC (4.0-10.5) x10^3/uL RBC (4.1-5.4) x10^6/uL Hgb (12.0-16.0) g/dL Hct (35-47) % MCV (78-100) fL MCH (26-32) pg MCHC (32-36) g/dL RDW (11.5-14.0) % Plt Count (150-450) x10^3/uL MPV (7.5-11.0) fL Sodium 143 (135-145) mmol/L Potassium 3.7 (3.5-5.1) mmol/L Chloride 114 H (98-107) mmol/L Carbon Dioxide 22 (22-30) mmol/L Anion Gap 10.6 (5-15) MEQ/L BUN 4 L (7-17) mg/dL Creatinine 0.57 (0.52-1.04) mg/dL Estimated GFR 113.4 ML/MIN Glucose 93 (74-106) mg/dL Calcium 8.6 (8.4-10.2) mg/dL Total Bilirubin 0.10 L (0.2-1.3) mg/dL AST 21 (14-36) U/L ALT 14 (0-35) U/L Alkaline Phosphatase 86 (38-126) U/L Serum Total Protein 6.5 (6.3-8.2) g/dL Albumin 3.0 L (3.5-5.0) g/dL Urine Opiates Level (NEGATIVE) Ur Methadone (NEGATIVE) Urine Barbiturates (NEGATIVE) Ur Phencyclidine (PCP) (NEGATIVE) Urine Amphetamine (NEGATIVE) U Benzodiazepine Level (NEGATIVE) Urine Cocaine (NEGATIVE) Urine Marijuana (THC) (NEGATIVE) Radiology Exams: Radiology Procedures Category Date Time Status HEAD WITHOUT CONTRAST [CT] Stat Exams 08/06/23 18:16 Completed Multi-Disciplinary Progress Notes: Multi-Disciplinary Progress Notes 08/08/23 14:42 Case Management Note by Carmen Yanes PATIENT AND UPSET WITH CURRENT STATUS OF BED AVAILABILITY WITH [facility]. [employer] DEALING WITH SITUATION. PATIENT NOTED INDEPENDENT AND NO NEEDS ON 08/06. FURTHER DC PLANNING CONVERSATIONS HELD AT THIS TIME D/T PATIENT AND EMOTIONAL. WAITING FURTHER ASSESSMENT BY [facility] AT THIS TIME. [employer] AWARE AND WILL S/W PATIENT ABOUT ANY NEEDS IF NEEDED Initialized on 08/08/23 14:42 - END OF NOTE Assessment/Plan (1) Narcotic overdose Current Visit: Yes Status: Acute Assessment & Plan: - Narcotic overdose with consumption of up to 37 pills of Nucynta 100 mg. Patient required Narcan in the ED, with resolution of bradycardia and hypoxia. Poison center was contacted, and recommended PRN Narcan and observation. - Patient denies suicidal ideation or attempt currently. -Admitted to ICU and observed overnight -One-to-one observation with suicide precautions - Await psych consult 08/07: -[facility] psych eval pending -Poison control has released patients, safe to resume home medications ` Code(s): T40.601A - POISONING BY UNSP NARCOTICS, ACCIDENTAL, INIT (2) Bipolar II disorder major depressive with atypical features Current Visit: No Status: Acute Assessment & Plan: - patient notes that her lurasidone dose was recently adjusted -behavioral health/psych to see and possibly resume her lurasidone and Cymbalta 08/07: -resumed home meds, psych eval pending Code(s): F31.81 - BIPOLAR II DISORDER (3) COVID-19 Current Visit: Yes Status: Acute Assessment & Plan: -without requiring oxygen. Patient is not otherwise high risk, so not a candidate for remdesivir or Paxlovid. -PRN nausea and diarrhea medications Code(s): U07.1 - COVID-19 (4) Metabolic acidosis Current Visit: No Status: Acute Assessment & Plan: - this appears to be somewhat chronic for the patient, although she had a similar presentation with overdose of multiple medications in February. Salicyl ate levels are negative, and no other signs of salicylate toxicity. - Change LR to bicarb drip at 100 mL/h - Repeat bicarbonate levels, ABG in the morning 08/06: -bicarb normal. Stop bicarb drip Code(s): E87.20 - ACIDOSIS, UNSPECIFIED (5) UTI (urinary tract infection) with pyuria Current Visit: No Status: Acute Assessment & Plan: -history is a little bit unclear, but patient denies any dysuria currently, although she has pyuria on UA. - Continue Rocephin 1 g IV q.24 hours - Follow-up urine cultures 08/07: -Continue rocephin, ucult with Ecoli Code(s): N39.0 - URINARY TRACT INFECTION, SITE NOT SPECIFIED (6) Diarrhea Current Visit: No Status: Acute Assessment & Plan: -related to COVID19 and/or withdrawal -lomotil ordered Code(s): R19.7 - DIARRHEA, UNSPECIFIED (7) Hypokalemia Current Visit: No Status: Acute Assessment & Plan: -severe at 2.4 this morning. Multiple repletions ordered 08/07: -resolved, continue home potassium Code(s): E87.6 - HYPOKALEMIA Code(s): T40.601A - POISONING BY UNSP NARCOTICS, ACCIDENTAL, INIT (2) COVID-19 Current Visit: Yes Status: Acute Code(s): U07.1 - COVID-19 (3) Lethargy Current Visit: Yes Status: Acute Code(s): R53.83 - OTHER FATIGUE
[2023-08-08 16:26] VITALS: BP 116/86; RESP 26; TEMP 98.5
[2023-08-08] MEDS ORDERED: LURASIDONE HCL 40 MG PO SCH (17:00)
--- NOTE | 2023-08-08 18:39 | PCM.DS ---
Discharge Summary Date of Admission: 08/06/23 20:29 Date of Discharge: 08/08/23 Admitting Physician: ANGEL BOYLE MD Consults: Consults on Case 08/06/23 20:34 Consult,Shayy [Psychiatric Consult] STAT Primary Care Provider: GASTON CAMPUZANO Allergies Allergies Sulfa (Sulfonamide Antibiotics) Allergy (Intermediate, Verified 08/06/23 15:39) Vomiting ketorolac [From Toradol] Allergy (Unknown, Verified 08/06/23 15:39) bee venom protein (honey bee) Allergy (Verified 08/06/23 15:39) methylprednisolone [From Solu-Medrol] Allergy (Verified 08/06/23 15:39) anger can take oral steroids, IV steroids she cannot take -- states she gets "roid rage" sumatriptan [From Imitrex] Allergy (Verified 08/06/23 15:39) nitrofurantoin [From Macrobid] Adverse Reaction (Verified 08/06/23 15:39) tramadol Adverse Reaction (Verified 08/06/23 15:39) Nausea flu vaccine Allergy (Intermediate, Uncoded 08/06/23 15:39) Hoarseness of voice Hospital Summary - Hospital Course Hospital Course: 48-year-old woman with a history of bipolar disorder, methamphetamine abuse, tobacco dependence, PAD, and prior repeated medication overdoses, admitted now with respiratory depression and narcotic overdose, as well as COVID-19. 08/07/2023: Today patient is awake and alert and complaining of cramps in her legs. Denies suicidal attempt. Says she took pain medication for the pain in her leg and says she does not remember how many she took. Has also been having diarrhea, likely from withdrawal. Await psych consult. Potassium was critically low this morning at 2.4. 08/08/23: Met with patient bedside. Endorses continued complaints of bilateral leg cramps. Continues to deny suicidal attempt but is agreeable this morning to IP psych, but changed her mind once patient's arrived. Of note, patient's continues to be verbally abusive to staff via telephone and in person. [facility] evaluation pending today, most likely will require ED for IP psych. Poison control has released patient today. Okay to resume home medications. Labs are now stable. Denies fever,cough, sob, cp, abdominal pain, BOONE, dizziness, N/V/D. Per supervisor blast furnace: "[id number] patient called this nurse in the room and requested iv to be taken out and to bring her the paperwork to leave. It was explained to the patient that it was in her best interest to stay and be transferred to [facility]. the patient wanted her to take her to [facility] so she could go home and get clothes. it was explained to the patient that if she left the hospital she would not be able to just go to [facility] that they would not take her and that they would not hold her bed. The patient demanded that she was leaving. While [facility] nurse was with the patient, the superintendent house was on the phone with [facility] to see where they were at with ED paperwork. They were still waiting for their doctor to sign the paperwork to send to the living supervisor. It was reiterated to the patient that if she left she would not have a bed at [facility] to go to. patients was present during these conversations and said that he would take her via personal vehicle to [facility] but if they did not take her, he was leaving her on the street and she could not come home. Patient still wanted paperwork for AMA. Patient was given paperwork and signed it. She left accompanied by her . Ana Smallwood NP was notified of all of the above. [facility] was notified that patient signed out AMA and they stated that they would still continue to work on ED paperwork and send the police to pick her up if it came through. Dr. Nichols was notified of patient leaving AMA." Patient was informed of the risk of leaving against medical advise. These risks include disability, harm or . Patient states they are aware of this and still choose to leave AMA. - Vitals & Intake/Output Vital Signs: Vital Signs Temperature 98.5 F 08/08/23 16:00 Pulse Rate 90 08/08/23 16:00 Respiratory Rate 26 H 08/08/23 16:00 Blood Pressure 116/86 08/08/23 16:00 O2 Sat by Pulse Oximetry 98 08/08/23 16:00 Intake & Output: Intake & Output 08/06/23 08/07/23 08/08/23 08/09/23 11:59 11:59 11:59 11:59 Intake Total 3634 Output Total 900 2850 400 Balance -044 893 -400 Weight 57.9 kg 53.6 kg - Lab Result Diagrams: 08/08/23 05:00 08/08/23 05:00 Lab Results-Last 24 Hrs: Lab Results-Last 24 Hours 08/06/23 08/07/23 08/08/23 Range/Units 15:56 21:05 05:00 WBC 5.0 (4.0-10.5) x10^3/uL RBC 3.54 L (4.1-5.4) x10^6/uL Hgb 10.6 L (12.0-16.0) g/dL Hct 33.4 L (35-47) % MCV 94.4 (78-100) fL MCH 29.9 (26-32) pg MCHC 31.7 L (32-36) g/dL RDW 13.7 (11.5-14.0) % Plt Count 380 (150-450) x10^3/uL MPV 8.5 (7.5-11.0) fL Sodium (135-145) mmol/L Potassium 4.1 D (3.5-5.1) mmol/L Chloride (98-107) mmol/L Carbon Dioxide (22-30) mmol/L Anion Gap (5-15) MEQ/L BUN (7-17) mg/dL Creatinine (0.52-1.04) mg/dL Estimated GFR ML/MIN Glucose (74-106) mg/dL Calcium (8.4-10.2) mg/dL Total Bilirubin (0.2-1.3) mg/dL AST (14-36) U/L ALT (0-35) U/L Alkaline Phosphatase (38-126) U/L Serum Total Protein (6.3-8.2) g/dL Albumin (3.5-5.0) g/dL Urine Opiates Level NEGATIVE (NEGATIVE) Ur Methadone NEGATIVE (NEGATIVE) Urine Barbiturates NEGATIVE (NEGATIVE) Ur Phencyclidine (PCP) NEGATIVE (NEGATIVE) Urine Amphetamine NEGATIVE (NEGATIVE) U Benzodiazepine Level NEGATIVE (NEGATIVE) Urine Cocaine NEGATIVE (NEGATIVE) Urine Marijuana (THC) NEGATIVE (NEGATIVE) 08/08/23 Range/Units 05:00 WBC (4.0-10.5) x10^3/uL RBC (4.1-5.4) x10^6/uL Hgb (12.0-16.0) g/dL Hct (35-47) % MCV (78-100) fL MCH (26-32) pg MCHC (32-36) g/dL RDW (11.5-14.0) % Plt Count (150-450) x10^3/uL MPV (7.5-11.0) fL Sodium 143 (135-145) mmol/L Potassium 3.7 (3.5-5.1) mmol/L Chloride 114 H (98-107) mmol/L Carbon Dioxide 22 (22-30) mmol/L Anion Gap 10.6 (5-15) MEQ/L BUN 4 L (7-17) mg/dL Creatinine 0.57 (0.52-1.04) mg/dL Estimated GFR 113.4 ML/MIN Glucose 93 (74-106) mg/dL Calcium 8.6 (8.4-10.2) mg/dL Total Bilirubin 0.10 L (0.2-1.3) mg/dL AST 21 (14-36) U/L ALT 14 (0-35) U/L Alkaline Phosphatase 86 (38-126) U/L Serum Total Protein 6.5 (6.3-8.2) g/dL Albumin 3.0 L (3.5-5.0) g/dL Urine Opiates Level (NEGATIVE) Ur Methadone (NEGATIVE) Urine Barbiturates (NEGATIVE) Ur Phencyclidine (PCP) (NEGATIVE) Urine Amphetamine (NEGATIVE) U Benzodiazepine Level (NEGATIVE) Urine Cocaine (NEGATIVE) Urine Marijuana (THC) (NEGATIVE) Micro Results-Entire Visit: Microbiology 08/06/23 15:56 Urine Culture - Final Catherized Escherichia Coli - Radiology Exams Ordered Rad Exams-Entire Visit: Radiology Procedures Category Date Time Status HEAD WITHOUT CONTRAST [CT] Stat Exams 08/06/23 18:16 Completed - Procedures and Test Procedures and Tests throughout Hospitalization: Therapy Orders & Screens 08/06/23 20:34 Respiratory Therapy Consult ONCE Comment: Reason For Exam: 08/06/23 21:43 Smoking Cessation Education ONCE Comment: Diagnosis: Narcotic overdose, suicide attempt Smoking Status: Current every day smoker How long have you smoked: 20yrs Approximately how many cigarettes per day: 1 ppd Do you dip or chew tobacco: No If,Former Smoker,when did you quit: UNSURE 08/07/23 03:01 Smoking Cessation Education ONCE Comment: Diagnosis: Narcotic overdose Smoking Status: Current every day smoker How long have you smoked: 20yrs Approximately how many cigarettes per day: 1 ppd Do you dip or chew tobacco: No If,Former Smoker,when did you quit: UNSURE Final Diagnosis/Problem List - Final Discharge Diagnosis/Problem (1) Narcotic overdose Status: Acute Code(s): T40.601A - POISONING BY UNSP NARCOTICS, ACCIDENTAL, INIT (2) COVID-19 Status: Acute Code(s): U07.1 - COVID-19 (3) Lethargy Status: Acute Code(s): R53.83 - OTHER FATIGUE - Discharge Disposition: Against Medical Advice Condition: Serious Prescriptions: No Action Furosemide [Lasix] 20 mg PO DAILY Dicyclomine HCl 20 mg [Bentyl 20 mg] 20 mg PO QID Potassium Chloride 20 meq PO DAILY Gentian Holli 0 ml TP DAILY Duloxetine HCl 30 mg [Cymbalta 30 MG Capsule] 30 mg PO BID Lurasidone HCl 20 mg PO DINNER Prazosin HCl 1 mg PO HS Atorvastatin Calcium 40 mg PO HS Ondansetron ODT 4 MG [Zofran Odt 4 mg] 4 mg PO Q4HPRN PRN PRN Reason: Nausea Aspirin EC 81 mg [Ecotrin 81 mg] 81 mg PO DAILY Albuterol Sulfate [Proair Digihaler] 2 puffs IH Q4H PRN PRN PRN Reason: Shortness Of Breath/Wheezing Follow up with: GASTON CAMPUZANO [Primary Care Provider] -
[2023-08-08] MEDS ORDERED: ZOCOR 20MG PO SCH (22:00)
[2023-08-08] MEDS ORDERED: NON-FORMULARY ITEM (Prazosin Hcl [Prazosin Hcl] 1 MG Capsule) PO SCH (22:00)
[2023-08-08] MEDS ORDERED: NON-FORMULARY ITEM PO SCH (22:00)
== END 2023-08-08 17:03 | disposition left against medical advice (07) ==
LOC: ED 15:33 → ICU 20:29
PROVIDERS: ADMIT Internal Medicine; ATTEND Internal Medicine
DX: T40.601A Poisoning by unspecified narcotics, accidental (unintentional), initial encounter (principal); U07.1 COVID-19; R53.83 Other fatigue; I73.9 Peripheral vascular disease, unspecified; F31.81 Bipolar II disorder; F15.90 Other stimulant use, unspecified, uncomplicated; F17.200 Nicotine dependence, unspecified, uncomplicated; E87.20 Acidosis, unspecified; N39.0 Urinary tract infection, site not specified; R19.7 Diarrhea, unspecified; E87.6 Hypokalemia; M79.605 Pain in left leg; M79.604 Pain in right leg; Z79.899 Other long term (current) drug therapy; Z20.828 Contact with and (suspected) exposure to other viral communicable diseases; Z85.828 Personal history of other malignant neoplasm of skin
CPT/HCPCS: 0241U; 36000; 36415; 36600; 51702; 70450; 80047; 80053; 80143; 80179; 80307; 81001; 82077; 82140; 82375; 82803; 83735; 84132; 85025; 85027; 87077; 87086; 87186; 87493; 93005; 93268; 96365; 96374; 96375; 99285; 99291; G0378; Q3014; J0696; J2310; J2405; A9270-GY

== ENCOUNTER 2023-08-20 10:23 | Emergency (ER) | payer OTHER ==
[2023-08-20 11:10] VITALS: BP 94/73; PULSE 101; TEMP 98.4; O2SAT 94
--- NOTE | 2023-08-20 11:37 | ERPHSYRPT ---
- History of Present Illness Time Seen by Provider: 08/20/23 11:18 Source: patient, family Exam Limitations: clinical condition Patient Subjective Stated Complaint: thinks that she has taken his lucenta and she is now having hallucinations Triage Nursing Assessment: Pt brought to the ER by her "", hypotensive, rates chronic back pain as 10/26, pt was just in the restroom and opened the door and asked me for her black pants, pt is wearing blue jeans today and I had to point them out to her on the bathroom floor, anxious, pt keeps falling asleep like she has narcolepsy and then wakes right up, pt is twitching and has tremors, pt came out of the bathroom and stated "I was talking to her" I asked her who it was and she said that it was her, crying, doesn't want to be here, pulses normal, skin n/w/d, Physician History: 48 years old female with history of anxiety/depression, chronic back pain, substance abuse with multiple overdoses in the past needing intubations presented today with her with complaints of hallucinations for the last 2 to 3 days. Patient reports she is able to see people that others cannot and have been talking to them off-and-on. She could not explain what she has been talking to them but does confirm this. reports patient has been chasing people and animals which are not there and actual but she denies. He also has a concern for her steeling his Nucynta this morning as he checked and there were 20 pills missing. Patient is very sleepy since morning. Denies any suicidal or homicidal ideations has been also attest the statement that she ne alena mention being suicidal or homicidal. Patient reports she does not remember taking any Nucynta but if she would have taken it would not be more than 3 or 4 pills. Allergies/Adverse Reactions: Sulfa (Sulfonamide Antibiotics) Allergy (Intermediate, Verified 08/20/23 11:10) Vomiting ketorolac [From Toradol] Allergy (Unknown, Verified 08/20/23 11:10) bee venom protein (honey bee) Allergy (Verified 08/20/23 11:10) methylprednisolone [From Solu-Medrol] Allergy (Verified 08/20/23 11:10) anger can take oral steroids, IV steroids she cannot take -- states she gets "roid rage" sumatriptan [From Imitrex] Allergy (Verified 08/20/23 11:10) nitrofurantoin [From Macrobid] Adverse Reaction (Verified 08/20/23 11:10) tramadol Adverse Reaction (Verified 08/20/23 11:10) Nausea flu vaccine Allergy (Intermediate, Uncoded 08/20/23 11:10) Hoarseness of voice Home Medications: Atorvastatin Calcium 40 mg PO HS 08/02/23 [History] Dicyclomine HCl 20 mg [Bentyl 20 mg] 20 mg PO QID 08/02/23 [History] Duloxetine HCl 30 mg [Cymbalta 30 MG Capsule] 30 mg PO BID 08/02/23 [History] Furosemide [Lasix] 20 mg PO DAILY 08/02/23 [History] Gentian Holli 0 ml TP DAILY 08/02/23 [History] Lurasidone HCl 20 mg PO DINNER 08/02/23 [History] Potassium Chloride 20 meq PO DAILY 08/02/23 [History] Prazosin HCl 1 mg PO HS 08/02/23 [History] Aspirin EC 81 mg [Ecotrin 81 mg] 81 mg PO DAILY 08/07/23 [History] Ondansetron ODT 4 MG [Zofran Odt 4 mg] 4 mg PO Q4HPRN PRN 08/07/23 [History] Albuterol Sulfate [Proair Digihaler] 2 puffs IH Q4H PRN PRN 08/08/23 [History] Hx Tetanus, Diphtheria Vaccination/Date Given: Yes Hx Influenza Vaccination/Date Given: No Hx Pneumococcal Vaccination/Date Given: No Travel Risk - International Travel Have you traveled outside of the country in past 3 weeks: No - Emerging Infectious Disease Are you exhibiting symptoms associated with any current EIDs: No - Past Medical History Pertinent Past Medical History: Yes Neurological History: Migraines ENT History: No Pertinent History Cardiac History: Peripheral Vascular Disease Respiratory History: No Pertinent History Endocrine Medical History: No Pertinent History Musculoskeletal History: Fibromyalgia GI Medical History: Gallbladder Disease History: Other Psycho-Social History: Bipolar Female Reproductive Disorders: Other Other Medical History: kidney stones, born with 1 kidney (left only), OVERDOSE - Past Surgical History Past Surgical History: Yes Neuro Surgical History: No Pertinent History Cardiac: No Pertinent History Respiratory: No Pertinent History Gastrointestinal: Bowel Surgery, Cholecystectomy Genitourinary: No Pertinent History Musculoskeletal: No Pertinent History Female Surgical History: Hysterectomy, Section, Tubal Ligation Other Surgical History: skin cancer removed twice, Umbilical hernia repair. ruptured hernia- colostomy and reversal Significant Family History: no pertinent family hx - Female History Hx Now: No - Social History Smoking Status: Current every day smoker How long have you smoked: 20yrs Exposure to second hand smoke: Yes Drug Use: methamphetamines Patient Lives Alone: No - Review of Systems Constitutional: Fatigue Eyes: No Symptoms Ears, Nose, & Throat: No Symptoms Respiratory: No Symptoms Cardiac: No Symptoms Abdominal/Gastrointestinal: No Symptoms Genitourinary Symptoms: No Symptoms Skin: No Symptoms Psychological: Drug Abuse, Anxiety, Depression, Hallucinations, No Suicidal Ideations, No Homicidal Ideations Endocrine: No Symptoms Hematologic/Lymphatic: No Symptoms Immunological/Allergic: No Symptoms - Nursing Vital Signs Nursing Vital Signs: Initial Vital Signs Temperature 98.4 F 08/20/23 10:56 Pulse Rate 101 H 08/20/23 10:56 Blood Pressure 94/73 08/20/23 10:56 O2 Sat by Pulse Oximetry 94 L 08/20/23 10:56 Pain Scale Pain Intensity 6 - Physical Exam General Appearance: no apparent distress, alert, anxiety Eyes, Ears, Nose, Throat Exam: normal ENT inspection, pharynx normal Neck Exam: normal inspection, non-tender, supple, full range of motion Respiratory Exam: normal breath sounds, lungs clear Cardiovascular Exam: regular rate/rhythm, normal heart sounds Gastrointestinal/Abdominal Exam: soft, normal bowel sounds, No tenderness Extremities Exam: normal inspection Current Suicidality: denies suicide plan Neurological Exam: alert, 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 II-XII nml as tested, oriented x 3, No normal mood/affect Appearance: appropriate appearance, No appropriate insight Behavior/Eye Contact/Speech: alert & cooperative, cooperative, good eye contact, normal speech Thoughts/Hallucinations: No normal thought pattern, No no apparent hallucination Skin Exam: normal color SpO2 Interpretation: normal SpO2: 94 O2 Delivery: Room Air Ordered Tests: Active Orders 24 hr Category Date Time Status EKG-ER Only STAT Care 08/20/23 11:28 Active ACETAMINOPHEN Stat Lab 08/20/23 11:50 Completed CBC W DIFF Stat Lab 08/20/23 11:50 Completed CMP Stat Lab 08/20/23 11:50 Completed CULTURE,URINE Stat Lab 08/20/23 11:34 Received ETHYL ALCOHOL Stat Lab 08/20/23 11:50 Completed HCG QUALITATIVE, SERUM Stat Lab 08/20/23 11:50 Completed SALICYLATE Stat Lab 08/20/23 11:50 Completed UA W/RFX UR CULTURE Stat Lab 08/20/23 11:34 Completed Urine Triage Profile Stat Lab 08/20/23 11:34 Completed Lab/Rad Data: Laboratory Result Diagrams 08/20/23 11:50 08/20/23 11:50 Laboratory Results 08/20/23 08/20/23 08/20/23 Range/Units 11:50 11:50 11:50 WBC 15.7 H (4.0-10.5) x10^3/uL RBC 3.40 L (4.1-5.4) x10^6/uL Hgb 10.1 L (12.0-16.0) g/dL Hct 33.7 L (35-47) % MCV 99.1 (78-100) fL MCH 29.7 (26-32) pg MCHC 30.0 L (32-36) g/dL RDW 13.7 (11.5-14.0) % Plt Count 395 (150-450) x10^3/uL MPV 8.1 (7.5-11.0) fL Gran % 77.7 H (36.0-66.0) % Immature Gran % (Auto) 0.4 (0.00-0.4) % Nucleat RBC Rel Count 0.0 (0.00-0.1) % Eos # (Auto) 0.45 (0-0.5) x10^3/uL Immature Gran # (Auto) 0.06 H (0.00-0.03) x10^3u/L Absolute Lymphs (auto) 2.03 (1.0-4.6) x10^3/uL Absolute Monos (auto) 0.92 (0.0-1.3) x10^3/uL Absolute Nucleated RBC 0.00 (0.00-0.01) x10^3u/L Lymphocytes % 12.9 L (24.0-44.0) % Monocytes % 5.9 (0.0-12.0) % Eosinophils % 2.9 (0.00-5.0) % Basophils % 0.2 (0.0-0.4) % Absolute Granulocytes 12.20 H (1.4-6.9) x10^3/uL Basophils # 0.03 (0-0.4) x10^3/uL Sodium 138 (135-145) mmol/L Potassium 4.2 (3.5-5.1) mmol/L Chloride 111 H (98-107) mmol/L Carbon Dioxide 21 L (22-30) mmol/L Anion Gap 10.3 (5-15) MEQ/L BUN 20 H (7-17) mg/dL Creatinine 0.74 (0.52-1.04) mg/dL Estimated GFR 101.0 ML/MIN Glucose 75 (74-106) mg/dL Calcium 8.6 (8.4-10.2) mg/dL Total Bilirubin 0.10 L (0.2-1.3) mg/dL AST 25 (14-36) U/L ALT 18 (0-35) U/L Alkaline Phosphatase 112 (38-126) U/L Serum Total Protein 7.0 (6.3-8.2) g/dL Albumin 3.6 (3.5-5.0) g/dL Serum HCG, Qual NEGATIVE (NEGATIVE) Urine Color (Yellow) Urine Appearance (Clear) Urine pH (4.6-8.0) Ur Specific [place] (1.005-1.030) Urine Protein (Negative) Urine Glucose (UA) (Negative) mg/dL Urine Ketones (Negative) Urine Blood (Negative) Urine Nitrite (Negative) Urine Bilirubin (Negative) Urine Urobilinogen (0.2) mg/dL Ur Leukocyte Esterase (Negative) U Hyaline Cast (Auto) (0-2) /LPF Urine Microscopic RBC (0-5) /HPF Urine Microscopic WBC (0-5) /HPF Ur Epithelial Cells (None Seen) /HPF Urine Bacteria (None Seen) /HPF Urine Culture Reflexed (NO) Salicylates < 1.0 L (2-20) mg/dL Urine Opiates Level (NEGATIVE) Ur Methadone (NEGATIVE) Acetaminophen < 10 L (10-30) ug/ml Urine Barbiturates (NEGATIVE) Ur Phencyclidine (PCP) (NEGATIVE) Urine Amphetamine (NEGATIVE) U Benzodiazepine Level (NEGATIVE) Urine Cocaine (NEGATIVE) Urine Marijuana (THC) (NEGATIVE) Ethyl Alcohol < 10 (0-10) mg/dL 08/20/23 08/20/23 Range/Units 11:34 11:34 WBC (4.0-10.5) x10^3/uL RBC (4.1-5.4) x10^6/uL Hgb (12.0-16.0) g/dL Hct (35-47) % MCV (78-100) fL MCH (26-32) pg MCHC (32-36) g/dL RDW (11.5-14.0) % Plt Count (150-450) x10^3/uL MPV (7.5-11.0) fL Gran % (36.0-66.0) % Immature Gran % (Auto) (0.00-0.4) % Nucleat RBC Rel Count (0.00-0.1) % Eos # (Auto) (0-0.5) x10^3/uL Immature Gran # (Auto) (0.00-0.03) x10^3u/L Absolute Lymphs (auto) (1.0-4.6) x10^3/uL Absolute Monos (auto) (0.0-1.3) x10^3/uL Absolute Nucleated RBC (0.00-0.01) x10^3u/L Lymphocytes % (24.0-44.0) % Monocytes % (0.0-12.0) % Eosinophils % (0.00-5.0) % Basophils % (0.0-0.4) % Absolute Granulocytes (1.4-6.9) x10^3/uL Basophils # (0-0.4) x10^3/uL Sodium (135-145) mmol/L Potassium (3.5-5.1) mmol/L Chloride (98-107) mmol/L Carbon Dioxide (22-30) mmol/L Anion Gap (5-15) MEQ/L BUN (7-17) mg/dL Creatinine (0.52-1.04) mg/dL Estimated GFR ML/MIN Glucose (74-106) mg/dL Calcium (8.4-10.2) mg/dL Total Bilirubin (0.2-1.3) mg/dL AST (14-36) U/L ALT (0-35) U/L Alkaline Phosphatase (38-126) U/L Serum Total Protein (6.3-8.2) g/dL Albumin (3.5-5.0) g/dL Serum HCG, Qual (NEGATIVE) Urine Color Yellow (Yellow) Urine Appearance Clear (Clear) Urine pH 7.0 (4.6-8.0) Ur Specific [place] <=1.005 (1.005-1.030) Urine Protein Negative (Negative) Urine Glucose (UA) Negative (Negative) mg/dL Urine Ketones Negative (Negative) Urine Blood Negative (Negative) Urine Nitrite Negative (Negative) Urine Bilirubin Negative (Negative) Urine Urobilinogen 0.2 (0.2) mg/dL Ur Leukocyte Esterase Negative (Negative) U Hyaline Cast (Auto) NONE SEEN (0-2) /LPF Urine Microscopic RBC 0-2 (0-5) /HPF Urine Microscopic WBC 3-5 (0-5) /HPF Ur Epithelial Cells None Seen (None Seen) /HPF Urine Bacteria Moderate A (None Seen) /HPF Urine Culture Reflexed YES (NO) Salicylates (2-20) mg/dL Urine Opiates Level NEGATIVE (NEGATIVE) Ur Methadone NEGATIVE (NEGATIVE) Acetaminophen (10-30) ug/ml Urine Barbiturates NEGATIVE (NEGATIVE) Ur Phencyclidine (PCP) NEGATIVE (NEGATIVE) Urine Amphetamine NEGATIVE (NEGATIVE) U Benzodiazepine Level NEGATIVE (NEGATIVE) Urine Cocaine NEGATIVE (NEGATIVE) Urine Marijuana (THC) NEGATIVE (NEGATIVE) Ethyl Alcohol (0-10) mg/dL - Progress Progress: unchanged Progress Note: 08/20/23 13:16 48 years old is evaluated in the ER for off-and-on hallucinations and concern for possible drug use. Patient is awake alert, fully oriented, does have some restlessness which she attributes to lack of sleep. She does admit having hallucination off-and-on but this has been going on for quite some time according to her. She is not actively hallucinating during interview. Patient continuously denies that she did not have taken any of her 's pills. Denies any suicidal or homicidal ideations. She just wants herself to be tested to make sure/prove to her that she has not taken any of his medications. Workup showed normal white count, fairly okay chemistries, urine drug screen is negative. Before I could have gone back in the room to discuss the results of workup patient left with her . Patient was not suicidal or homicidal, not a threat to self or anyone else and walked out in a stable condition. Counseled pt/family regarding: lab results, diagnosis Medical Desision Making - Independent Historian Additional History obtained from: Spouse - Diagnostic Testing Diagnostic test were ordered, analyzed, and reviewed by me: Yes - Departure Departure Disposition: AMA (elmoody) Clinical Impression: Bipolar 1 disorder, Psychosis Condition: Stable Critical Care Time: No Referrals: ASHWIN RIOS MD [Primary Care Provider] - Follow up/PCP as directed
[2023-08-20 11:50] LABS: BASOPHIL % 0.2 % (0.0-0.4); Basophil (Absolute #) 0.03 x10^3/uL (0-0.4); Eosinophil % 2.9 % (0.00-5.0); Eosinophil (Absolute #) 0.45 x10^3/uL (0-0.5); Hematocrit 33.7 % (35-47); Hemoglobin 10.1 g/dL (12.0-16.0); IMMATURE GRAN # 0.06 x10^3u/L (0.00-0.03); IMMATURE GRAN % 0.4 % (0.00-0.4); Lymphocyte (Absolute #) 2.03 x10^3/uL (1.0-4.6); Lymphocytes % 12.9 % (24.0-44.0); Mean Cell Volume 99.1 fL (78-100); Mean Corpuscular Hemoglobin 29.7 pg (26-32); Mean Platelet Volume 8.1 fL (7.5-11.0); Monocyte (Absolute #) 0.92 x10^3/uL (0.0-1.3); Monocytes % 5.9 % (0.0-12.0); Neutrophil % 77.7 % (36.0-66.0); Platelet Count 395 x10^3/uL (150-450); Red Cell Distribution Width 13.7 % (11.5-14.0); White Blood Count 15.7 x10^3/uL (4.0-10.5)
[2023-08-20 12:04] LABS: ACETAMINOPHEN < 10 ug/ml (10-30); ALBUMIN 3.6 g/dL (3.5-5.0); ALKALINE PHOSPHATASE 112 U/L (38-126); ANION GAP 10.3 MEQ/L (5-15); BLOOD UREA NITROGEN 20 mg/dL (7-17); CHLORIDE 111 mmol/L (98-107); Calcium 8.6 mg/dL (8.4-10.2); Carbon Dioxide 21 mmol/L (22-30); Creatinine 1 0.74 mg/dL (0.52-1.04); ETHYL ALCOHOL < 10 mg/dL (0-10); Glucose 75 mg/dL (74-106); Potassium 4.2 mmol/L (3.5-5.1); SALICYLATE < 1.0 mg/dL (2-20); SGOT/AST 25 U/L (14-36); SGPT/ALT 18 U/L (0-35); SODIUM 138 mmol/L (135-145)
[2023-08-20 12:10] LABS: HCG SERUM TEST NEGATIVE (NEGATIVE)
[2023-08-20 12:15] LABS: Appearance Clear (Clear); Bacteria Moderate /HPF (None Seen); Bilirubin Negative (Negative); Blood Negative (Negative); Epithelial Cells None Seen /HPF (None Seen); Glucose, Urine Negative (Negative); Hyaline Casts NONE SEEN /LPF (0-2); Ketones Negative (Negative); Leukocyte Esterase Negative (Negative); Nitrite Negative (Negative); Protein,Urine Dip Negative (Negative); RBC 0-2 /HPF (0-5); Specific Gravity <=1.005 (1.005-1.030); Urobilinogen 0.2 mg/dL (0.2)
[2023-08-20 12:18] LABS: ADD URINE CULTURE? YES (NO)
[2023-08-20 12:27] LABS: Amphetamine,Urine NEGATIVE (NEGATIVE); Barbiturate,Urine NEGATIVE (NEGATIVE); Benzodiazepine,Urine NEGATIVE (NEGATIVE); Cocaine,Urine NEGATIVE (NEGATIVE); Methadone,Urine NEGATIVE (NEGATIVE); Opiate,Urine NEGATIVE (NEGATIVE); PCP,Urine NEGATIVE (NEGATIVE); THC,Urine NEGATIVE (NEGATIVE)
== END 2023-08-20 13:01 | disposition left against medical advice (07) ==
LOC: ED 10:23
DX: F31.9 Bipolar disorder, unspecified (principal); F29 Unspecified psychosis not due to a substance or known physiological condition; Z79.899 Other long term (current) drug therapy; Z72.0 Tobacco use
CPT/HCPCS: 36415; 80053; 80143; 80179; 80307; 81001; 82077; 84703; 85025; 87077; 87086; 87186; 99283

== ENCOUNTER 2023-09-23 12:04 | Emergency (ER) | payer OTHER ==
[2023-09-23 12:34] VITALS: TEMP 98.3; O2SAT 97
--- NOTE | 2023-09-23 12:41 | ERPHSYRPT ---
- History of Present Illness Time Seen by Provider: 09/23/23 12:30 Source: patient Exam Limitations: no limitations Patient Subjective Stated Complaint: pt states pain to feet that goes up her legs Triage Nursing Assessment: pt ambulated into the er; pt is axo x3; c/o aarti leg pain; pt states pain radiates from feet to mid leg; pt has multiple amputated toes, left foot digits 2, 3, 4; rt foot digits 2,3; stitches present on both feet; skin cool to the touch; pedal pulse present; no respiratory distress present; vitals wnl Physician History: Patient a 48-year-old female presents to the emergency department for management of postoperative pain. Patient had toe amputations performed 3 weeks ago. Patient amputations of her left second third and fourth digit and her right second and third digit. Patient was discharged with OxyContin. Patient states she ran through her OxyContin and now has no more pain medicine. Patient is requesting additional pain medication. Patient states she is due to have her sutures removed as well. No trauma. No fever. No nausea or vomiting. No concerns for infection. Patient's pain is localized to her postsurgical site per patient. Patient voices no other complaints or concerns at this time. Portions of this note were created with voice recognition technology. There may be grammatical, spelling, punctuation or sound alike errors Timing/Duration: today Severity: moderate Modifying Factors: Improves With: movement Associated Symptoms: denies symptoms Allergies/Adverse Reactions: Sulfa (Sulfonamide Antibiotics) Allergy (Intermediate, Verified 09/23/23 12:19) Vomiting ketorolac [From Toradol] Allergy (Unknown, Verified 09/23/23 12:19) bee venom protein (honey bee) Allergy (Verified 09/23/23 12:19) methylprednisolone [From Solu-Medrol] Allergy (Verified 09/23/23 12:19) anger can take oral steroids, IV steroids she cannot take -- states she gets "roid rage" sumatriptan [From Imitrex] Allergy (Verified 09/23/23 12:19) nitrofurantoin [From Macrobid] Adverse Reaction (Verified 09/23/23 12:19) tramadol Adverse Reaction (Verified 09/23/23 12:19) Nausea flu vaccine Allergy (Intermediate, Uncoded 09/23/23 12:19) Hoarseness of voice Home Medications: Atorvastatin Calcium 40 mg PO HS 08/02/23 [History] Dicyclomine HCl 20 mg [Bentyl 20 mg] 20 mg PO QID 08/02/23 [History] Duloxetine HCl 30 mg [Cymbalta 30 MG Capsule] 30 mg PO BID 08/02/23 [History] Furosemide [Lasix] 20 mg PO DAILY 08/02/23 [History] Lurasidone HCl 20 mg PO DINNER 08/02/23 [History] Potassium Chloride 20 meq PO DAILY 08/02/23 [History] Prazosin HCl 1 mg PO HS 08/02/23 [History] Aspirin EC 81 mg [Ecotrin 81 mg] 81 mg PO DAILY 08/07/23 [History] Ondansetron ODT 4 MG [Zofran Odt 4 mg] 4 mg PO Q4HPRN PRN 08/07/23 [History] Albuterol Sulfate [Proair Digihaler] 2 puffs IH Q4H PRN PRN 08/08/23 [History] Mirtazapine 15 mg PO HS 09/23/23 [History] Hx Tetanus, Diphtheria Vaccination/Date Given: Yes Hx Influenza Vaccination/Date Given: No Hx Pneumococcal Vaccination/Date Given: No Immunizations Up to Date: No Travel Risk - International Travel Have you traveled outside of the country in past 3 weeks: No - Emerging Infectious Disease Are you exhibiting symptoms associated with any current EIDs: No - Review of Systems Constitutional: No Symptoms, No Fever, No Chills Eyes: No Symptoms Ears, Nose, & Throat: No Symptoms Respiratory: No Symptoms, No Cough, No Dyspnea Cardiac: No Symptoms, No Chest Pain, No Edema, No Syncope Abdominal/Gastrointestinal: No Symptoms, No Abdominal Pain, No Nausea, No Vomiting, No Diarrhea Genitourinary Symptoms: No Symptoms, No Dysuria Musculoskeletal: No Symptoms, No Back Pain, No Neck Pain Skin: No Symptoms, No Rash Neurological: No Symptoms, No Dizziness, No Focal Weakness, No Sensory Changes Psychological: No Symptoms Endocrine: No Symptoms Hematologic/Lymphatic: No Symptoms Immunological/Allergic: No Symptoms All Other Systems: Reviewed and Negative - Past Medical History Pertinent Past Medical History: Yes Neurological History: Migraines ENT History: No Pertinent History Cardiac History: Peripheral Vascular Disease Respiratory History: No Pertinent History Endocrine Medical History: No Pertinent History Musculoskeletal History: Fibromyalgia GI Medical History: Gallbladder Disease History: Other Psycho-Social History: Bipolar Female Reproductive Disorders: Other Other Medical History: kidney stones, born with 1 kidney (left only), OVERDOSE - Past Surgical History Past Surgical History: Yes Neuro Surgical History: No Pertinent History Cardiac: No Pertinent History Respiratory: No Pertinent History Gastrointestinal: Bowel Surgery, Cholecystectomy Genitourinary: No Pertinent History Musculoskeletal: No Pertinent History Female Surgical History: Hysterectomy, Section, Tubal Ligation Other Surgical History: skin cancer removed twice, Umbilical hernia repair. ruptured hernia- colostomy and reversal. toe amputations to left foot, digits 2, 3, 4;. toe amputations to rt foot, digits 2, 3 Significant Family History: no pertinent family hx - Female History Hx Now: No - Social History Smoking Status: Current every day smoker How long have you smoked: 20yrs Exposure to second hand smoke: Yes Drug Use: methamphetamines Patient Lives Alone: No - Nursing Vital Signs Nursing Vital Signs: Initial Vital Signs Temperature 98.3 F 09/23/23 12:22 Pulse Rate 95 H 09/23/23 12:22 Respiratory Rate 18 09/23/23 12:22 Blood Pressure 134/97 09/23/23 12:22 O2 Sat by Pulse Oximetry 97 09/23/23 12:22 Pain Scale Pain Intensity 9 - Physical Exam General Appearance: no apparent distress, alert Eye Exam: PERRL/EOMI, eyes nml inspection Ears, Nose, Throat Exam: moist mucous membranes Neck Exam: normal inspection, non-tender, full range of motion Respiratory Exam: normal breath sounds, lungs clear, No respiratory distress Cardiovascular Exam: regular rate/rhythm, normal heart sounds, normal peripheral pulses Gastrointestinal/Abdomen Exam: soft, normal bowel sounds, No tenderness, No mass Back Exam: normal inspection, normal range of motion, No CVA tenderness, No vertebral tenderness Extremity Exam: normal inspection, normal range of motion, pelvis stable, other (Surgical sites are healing well. No signs of infection no drainage.) Neurologic Exam: alert, oriented x 3, cooperative, normal mood/affect, nml cerebellar function, nml station & gait, sensation nml, No motor deficits Skin Exam: normal color, warm, dry, No rash Lymphatic Exam: No adenopathy SpO2 Interpretation: normal SpO2: 97 O2 Delivery: Room Air - Course Nursing assessment & vital signs reviewed: Yes Ordered Tests: Medication Summary Discontinued Medications Generic Name Dose Route Start Last Admin Trade Name Yehuda PRN Reason Stop Dose Admin Droperidol 1.25 mg 09/23/23 12:42 Droperidol 5 Mg/2 Ml Vial IM 09/23/23 12:43 STAT ONE - Progress Progress: improved Progress Note: I spoke to patient's surgeon's office. [phone] Dr. Hunt is not available. I spoke to his principal trainer. Patient is not to have narcotics. Patient to treat pain with [id number]-evtgoca medications as patient surgery was 3 weeks ago. We will treat patient's pain with a dose of droperidol. Patient will be discharged home. Patient has a follow-up appointment with Dr. Hunt in 2 days, , September 24. 48-year-old female 3 weeks postop. Patient was discharged home with OxyContin. Patient states she took more OxyContin and then she should have. Patient is now out of her pain medications. Per Dr. Hunt patient missed last week's appointment. Patient states it was due to a "scheduling conflict". Portions of this note were created with voice recognition technology. There may be grammatical, spelling, punctuation or sound alike errors Complexity problem addressed is moderate acute complicated No critical care time Complex of data reviewed and analyzed is none. No specialized testing ordered. Diagnosis made based on history and physical exam. Risk of complication and or risk of morbidity/mortality patient management is moderate. Patient received IM droperidol. Vital stable. Time spent to discharge patient approximately 20 minutes. Plan of care established for shared decision making. No social determinants of health present impede follow-up. 09/23/23 12:44 Counseled pt/family regarding: diagnosis, need for follow-up - Departure Departure Disposition: Home Clinical Impression: Postoperative pain Condition: Stable Critical Care Time: No Referrals: GASTON CAMPUZANO [Primary Care Provider] - Follow up/PCP as directed Additional Instructions: Discharge/Care Plan NATHAN MENDOZA was seen on 09/23/23 in the Emergency Room. The patient was counseled regarding Diagnosis,Lab results, Imaging studies, need for follow up and when to return to the Emergency Room. Prescriptions given: Discharge Note I have spoken with the patient and/or caregivers. I have explained the patient's condition, diagnosis and treatment plan based on the information available to me at this time. I have answered the patient's and/or caregiver's questions and addressed any concerns. The patient and/or caregivers have as good understanding of the patient's diagnosis, condition and treatment plan as can be expected at this point. The vital signs have been stable. The patient's condition is stable and appropriate for discharge from the emergency department. The patient will pursue further outpatient evaluation with the primary care physician or other designated or consulting physician as outlined in the discharge instructions. The patient and/or caregivers are agreeable to this plan of care and follow-up instructions have been explained in detail. The patient and/or caregivers have received these instruction. The patient/and or caregivers are aware that any significant change in condition or worsening of symptoms should prompt an immediate return to this or the closest emergency department or call 911.
[2023-09-23 12:56] VITALS: BP 116/87; PULSE 91; RESP 14
== END 2023-09-23 13:00 | disposition home or self-care (01) ==
LOC: ED 12:04
DX: G89.18 Other acute postprocedural pain (principal); Z79.899 Other long term (current) drug therapy; Z72.0 Tobacco use
CPT/HCPCS: 96372; 99282

== ENCOUNTER 2023-11-09 21:27 | Observation (INO) | payer BC, OTHER ==
--- NOTE | 2023-11-09 21:33 | ERPHSYRPT ---
- History of Present Illness Time Seen by Provider: 11/09/23 21:32 Source: patient, EMS, old records Exam Limitations: clinical condition Physician History: This is a 48-year-old white female patient of Dr. Zuluaga who presents to the emergency department by the paramedics at the request of the patient's family because she was found very lethargic at home. Patient's is on Nucynta (synthetic opioid). Patient admitted to taking 5 of those tablets but does not recall when she took them. Patient's stated that 77 tablets were missing from a bottle of 100 that was filled 1 week ago. Patient has had overdose and suicide attempt in the past. Patient has bipolar disorder, migraine headaches and fibromyalgia. Patient is lethargic upon arrival to the emergency department. Timing/Duration: today Severity of Symptoms-Max: moderate Severity of Symptoms-Current: moderate Context related to: living circumstances Suicidal thoughts: ingestion Previous symptoms: same symptoms as today, no recent treatment Allergies/Adverse Reactions: Sulfa (Sulfonamide Antibiotics) Allergy (Intermediate, Verified 09/23/23 12:19) Vomiting ketorolac [From Toradol] Allergy (Unknown, Verified 09/23/23 12:19) bee venom protein (honey bee) Allergy (Verified 09/23/23 12:19) methylprednisolone [From Solu-Medrol] Allergy (Verified 09/23/23 12:19) anger can take oral steroids, IV steroids she cannot take -- states she gets "roid rage" sumatriptan [From Imitrex] Allergy (Verified 09/23/23 12:19) nitrofurantoin [From Macrobid] Adverse Reaction (Verified 09/23/23 12:19) tramadol Adverse Reaction (Verified 09/23/23 12:19) Nausea flu vaccine Allergy (Intermediate, Uncoded 09/23/23 12:19) Hoarseness of voice Home Medications: Atorvastatin Calcium 40 mg PO HS 08/02/23 [History] Dicyclomine HCl 20 mg [Bentyl 20 mg] 20 mg PO QID 08/02/23 [History] Duloxetine HCl 30 mg [Cymbalta 30 MG Capsule] 30 mg PO BID 08/02/23 [History] Furosemide [Lasix] 20 mg PO DAILY 08/02/23 [History] Lurasidone HCl 20 mg PO DINNER 08/02/23 [History] Potassium Chloride 20 meq PO DAILY 08/02/23 [History] Prazosin HCl 1 mg PO HS 08/02/23 [History] Aspirin EC 81 mg [Ecotrin 81 mg] 81 mg PO DAILY 08/07/23 [History] Ondansetron ODT 4 MG [Zofran Odt 4 mg] 4 mg PO Q4HPRN PRN 08/07/23 [History] Albuterol Sulfate [Proair Digihaler] 2 puffs IH Q4H PRN PRN 08/08/23 [History] Mirtazapine 15 mg PO HS 09/23/23 [History] Hx Tetanus, Diphtheria Vaccination/Date Given: Yes Hx Influenza Vaccination/Date Given: No Hx Pneumococcal Vaccination/Date Given: No Travel Risk - International Travel Have you traveled outside of the country in past 3 weeks: No - Emerging Infectious Disease Are you exhibiting symptoms associated with any current EIDs: No - Past Medical History Pertinent Past Medical History: Yes Neurological History: Migraines ENT History: No Pertinent History Cardiac History: Peripheral Vascular Disease Respiratory History: No Pertinent History Endocrine Medical History: No Pertinent History Musculoskeletal History: Fibromyalgia GI Medical History: Gallbladder Disease History: Other Psycho-Social History: Bipolar Female Reproductive Disorders: Other Other Medical History: kidney stones, born with 1 kidney (left only), OVERDOSE - Past Surgical History Past Surgical History: Yes Neuro Surgical History: No Pertinent History Cardiac: No Pertinent History Respiratory: No Pertinent History Gastrointestinal: Bowel Surgery, Cholecystectomy Genitourinary: No Pertinent History Musculoskeletal: No Pertinent History Female Surgical History: Hysterectomy, Section, Tubal Ligation Other Surgical History: skin cancer removed twice, Umbilical hernia repair. ruptured hernia- colostomy and reversal. toe amputations to left foot, digits 2, 3, 4;. toe amputations to rt foot, digits 2, 3 Significant Family History: no pertinent family hx - Social History Smoking Status: Current every day smoker How long have you smoked: 20yrs Exposure to second hand smoke: Yes Drug Use: methamphetamines Patient Lives Alone: No - Social Determinants of Health Will the patient participate in the screening: Declined to provide - Review of Systems Constitutional: Lethargy Eyes: No Symptoms Ears, Nose, & Throat: No Symptoms Respiratory: No Symptoms Cardiac: No Symptoms Abdominal/Gastrointestinal: No Symptoms Genitourinary Symptoms: No Symptoms Musculoskeletal: No Symptoms Skin: No Symptoms Neurological: Lethargy Psychological: No Symptoms Endocrine: No Symptoms Hematologic/Lymphatic: No Symptoms Immunological/Allergic: No Symptoms All Other Systems: Reviewed and Negative - Nursing Vital Signs Nursing Vital Signs: Initial Vital Signs Temperature 98.1 F 11/09/23 21:40 Pulse Rate 85 11/09/23 21:40 Respiratory Rate 12 11/09/23 21:40 Blood Pressure 95/69 11/09/23 21:40 O2 Sat by Pulse Oximetry 93 L 11/09/23 21:40 Pain Scale Pain Intensity 0 - Physical Exam General Appearance: no apparent distress, lethargy Eyes, Ears, Nose, Throat Exam: moist mucous membranes, other (edentulous) Respiratory Exam: normal breath sounds, lungs clear, airway intact, No chest tenderness, No respiratory distress Cardiovascular Exam: regular rate/rhythm, normal heart sounds, normal peripheral pulses Gastrointestinal/Abdominal Exam: soft, normal bowel sounds, No tenderness Extremities Exam: normal inspection, No evidence of injury Neurological Exam: calm (Lethargy but arousable) Appearance: impaired insight Behavior/Eye Contact/Speech: intoxicated appearance Skin Exam: normal color, warm, dry SpO2 Interpretation: normal O2 Delivery: Room Air - Course Nursing assessment & vital signs reviewed: Yes EKG Interpreted by Me: RATE (85), Sinus Rhythm, NORMAL AXIS, NORMAL INTERVALS, NORMAL QRS, NORMAL ST-T, Other (No acute ischemia. QTc is 405) Ordered Tests: Active Orders 24 hr Category Date Time Status Hose Handler STAT Care 11/09/23 21:38 Active Spangler [Catheter-[employer] Spangler] STAT Care 11/09/23 21:53 Active IV Insertion STAT Care 11/09/23 21:34 Active ACETAMINOPHEN Stat Lab 11/09/23 21:40 Completed CBC W DIFF Stat Lab 11/09/23 21:40 Completed CMP Stat Lab 11/09/23 21:40 Completed CULTURE,URINE Stat Lab 11/09/23 21:53 Received ETHYL ALCOHOL Stat Lab 11/09/23 21:40 Completed SALICYLATE Stat Lab 11/09/23 21:40 Completed UA W/RFX UR CULTURE Stat Lab 11/09/23 21:53 Completed Urine Triage Profile Stat Lab 11/09/23 21:53 Completed Medication Summary Generic Name Dose Route Start Last Admin Trade Name Freq PRN Reason Stop Dose Admin Sodium Chloride 1,000 mls @ 150 mls/hr 11/09/23 23:45 11/09/23 23:51 Sodium Chloride 0.9% 1000 Ml IV 12/09/23 23:44 150 mls/hr .Q6H40M OMAR Administration Discontinued Medications Generic Name Dose Route Start Last Admin Trade Name Yehuda PRN Reason Stop Dose Admin Sodium Chloride 1,000 mls @ 999 mls/hr 11/09/23 21:34 11/09/23 22:09 Sodium Chloride 0.9% 1000 Ml IV 11/09/23 22:34 999 mls/hr .Q1H1M STA Administration Sodium Chloride Confirm 11/09/23 21:55 Sodium Chloride 0.9% 1000 Ml Administered 11/09/23 21:56 Dose 1,000 mls @ ud .ROUTE .STK-MED ONE Naloxone HCl 0.4 mg 11/09/23 22:27 11/09/23 22:28 Naloxone Hcl 0.4 Mg/Ml Ml IV 11/09/23 22:28 0.4 mg STAT ONE Administration Naloxone HCl Confirm 11/09/23 22:27 Naloxone Hcl 0.4 Mg/Ml Ml Administered 11/09/23 22:28 Dose 0.4 mg .ROUTE .STK-MED ONE Naloxone HCl Confirm 11/10/23 00:05 Naloxone Hcl 0.4 Mg/Ml Ml Administered 11/10/23 00:06 Dose 0.4 mg .ROUTE .STK-MED ONE Naloxone HCl 0.4 mg 11/10/23 00:07 11/10/23 00:09 Naloxone Hcl 0.4 Mg/Ml Ml IV 11/10/23 00:08 0.4 mg STAT ONE Administration Ondansetron HCl 4 mg 11/09/23 21:34 11/09/23 22:09 Ondansetron Hcl 4 Mg/2 Ml Vial IV 11/09/23 21:35 4 mg STAT ONE Administration Ondansetron HCl Confirm 11/09/23 21:55 Ondansetron Hcl 4 Mg/2 Ml Vial Administered 11/09/23 21:56 Dose 4 mg .ROUTE .STK-MED ONE Lab/Rad Data: Laboratory Result Diagrams 11/09/23 21:40 11/09/23 21:40 Laboratory Results 11/09/23 11/09/23 11/09/23 Range/Units 21:53 21:53 21:40 WBC (3.98-10.04) x10^3/uL RBC (3.93-5.22) x10^6/uL Hgb (11.2-15.7) g/dL Hct (34.1-44.9) % MCV (79.4-94.8) fL MCH (25.6-32.2) pg MCHC (32.2-35.5) g/dL RDW (11.7-14.4) % Plt Count (182-369) x10^3/uL MPV (9.4-12.3) fL Gran % (34.0-71.1) % Immature Gran % (Auto) (0.001-0.429) % Nucleat RBC Rel Count (0.00-0.2) % Eos # (Auto) (0.04-0.36) x10^3/uL Immature Gran # (Auto) (0.001-0.031) x10^3u/L Absolute Lymphs (auto) (1.18-3.74) x10^3/uL Absolute Monos (auto) (0.24-0.86) x10^3/uL Absolute Nucleated RBC (0.00-0.012) x10^3u/L Lymphocytes % (19.3-51.7) % Monocytes % (4.7-12.5) % Eosinophils % (0.7-5.8) % Basophils % (0.1-1.2) % Absolute Granulocytes (1.56-6.13) x10^3/uL Basophils # (0.01-0.08) x10^3/uL Sodium 137 (135-145) mmol/L Potassium 4.8 (3.5-5.1) mmol/L Chloride 112 H (98-107) mmol/L Carbon Dioxide 16 L* (22-30) mmol/L Anion Gap 14.8 (5-15) MEQ/L BUN 17 (7-17) mg/dL Creatinine 1.00 (0.52-1.04) mg/dL Estimated GFR 70.4 ML/MIN Glucose 101 (74-106) mg/dL Calcium 8.6 (8.4-10.2) mg/dL Total Bilirubin 0.30 (0.2-1.3) mg/dL AST 25 (14-36) U/L ALT 20 (0-35) U/L Alkaline Phosphatase 101 (38-126) U/L Serum Total Protein 6.9 (6.3-8.2) g/dL Albumin 3.9 (3.5-5.0) g/dL Urine Color Yellow (Yellow) Urine Appearance Clear (Clear) Urine pH 6.0 (4.6-8.0) Ur Specific [place] 1.015 (1.005-1.030) Urine Protein Trace A (Negative) Urine Glucose (UA) Negative (Negative) mg/dL Urine Ketones Negative (Negative) Urine Blood Negative (Negative) Urine Nitrite Negative (Negative) Urine Bilirubin Negative (Negative) Urine Urobilinogen 0.2 (0.2) mg/dL Ur Leukocyte Esterase Trace A (Negative) U Hyaline Cast (Auto) 3-5 A (0-2) /LPF Urine Microscopic RBC 0-2 (0-5) /HPF Urine Microscopic WBC 6-10 A (0-5) /HPF Ur Epithelial Cells None Seen (None Seen) /HPF Urine Bacteria None Seen (None Seen) /HPF Urine Culture Reflexed ORDERED SEPARATELY (NO) Salicylates < 1.0 L (2-20) mg/dL Urine Opiates Level NEGATIVE (NEGATIVE) Ur Methadone NEGATIVE (NEGATIVE) Acetaminophen < 10 L (10-30) ug/ml Urine Barbiturates NEGATIVE (NEGATIVE) Ur Phencyclidine (PCP) NEGATIVE (NEGATIVE) Urine Amphetamine NEGATIVE (NEGATIVE) U Benzodiazepine Level NEGATIVE (NEGATIVE) Urine Cocaine NEGATIVE (NEGATIVE) Urine Marijuana (THC) NEGATIVE (NEGATIVE) Ethyl Alcohol < 10 (0-10) mg/dL 11/09/23 Range/Units 21:40 WBC 11.7 H (3.98-10.04) x10^3/uL RBC 4.17 (3.93-5.22) x10^6/uL Hgb 12.3 (11.2-15.7) g/dL Hct 39.6 (34.1-44.9) % MCV 95.0 H (79.4-94.8) fL MCH 29.5 (25.6-32.2) pg MCHC 31.1 L (32.2-35.5) g/dL RDW 16.0 H (11.7-14.4) % Plt Count 392 H (182-369) x10^3/uL MPV 9.3 L (9.4-12.3) fL Gran % 60.0 (34.0-71.1) % Immature Gran % (Auto) 0.2 (0.001-0.429) % Nucleat RBC Rel Count 0.0 (0.00-0.2) % Eos # (Auto) 0.97 H (0.04-0.36) x10^3/uL Immature Gran # (Auto) 0.02 (0.001-0.031) x10^3u/L Absolute Lymphs (auto) 2.87 (1.18-3.74) x10^3/uL Absolute Monos (auto) 0.78 (0.24-0.86) x10^3/uL Absolute Nucleated RBC 0.00 (0.00-0.012) x10^3u/L Lymphocytes % 24.6 (19.3-51.7) % Monocytes % 6.7 (4.7-12.5) % Eosinophils % 8.3 H (0.7-5.8) % Basophils % 0.2 (0.1-1.2) % Absolute Granulocytes 7.00 H (1.56-6.13) x10^3/uL Basophils # 0.02 (0.01-0.08) x10^3/uL Sodium (135-145) mmol/L Potassium (3.5-5.1) mmol/L Chloride (98-107) mmol/L Carbon Dioxide (22-30) mmol/L Anion Gap (5-15) MEQ/L BUN (7-17) mg/dL Creatinine (0.52-1.04) mg/dL Estimated GFR ML/MIN Glucose (74-106) mg/dL Calcium (8.4-10.2) mg/dL Total Bilirubin (0.2-1.3) mg/dL AST (14-36) U/L ALT (0-35) U/L Alkaline Phosphatase (38-126) U/L Serum Total Protein (6.3-8.2) g/dL Albumin (3.5-5.0) g/dL Urine Color (Yellow) Urine Appearance (Clear) Urine pH (4.6-8.0) Ur Specific [place] (1.005-1.030) Urine Protein (Negative) Urine Glucose (UA) (Negative) mg/dL Urine Ketones (Negative) Urine Blood (Negative) Urine Nitrite (Negative) Urine Bilirubin (Negative) Urine Urobilinogen (0.2) mg/dL Ur Leukocyte Esterase (Negative) U Hyaline Cast (Auto) (0-2) /LPF Urine Microscopic RBC (0-5) /HPF Urine Microscopic WBC (0-5) /HPF Ur Epithelial Cells (None Seen) /HPF Urine Bacteria (None Seen) /HPF Urine Culture Reflexed (NO) Salicylates (2-20) mg/dL Urine Opiates Level (NEGATIVE) Ur Methadone (NEGATIVE) Acetaminophen (10-30) ug/ml Urine Barbiturates (NEGATIVE) Ur Phencyclidine (PCP) (NEGATIVE) Urine Amphetamine (NEGATIVE) U Benzodiazepine Level (NEGATIVE) Urine Cocaine (NEGATIVE) Urine Marijuana (THC) (NEGATIVE) Ethyl Alcohol (0-10) mg/dL - Progress Progress: improved, re-examined Progress Note: 11/09/23 22:54 My medical decision making and the assignment of moderate complexity to this patient's medical issue today is based on review of the patient's past medical history, review of the patient's medication list, review of patient drug allergy list, history present illness and physical findings on examination. The workup in this patient includes alcohol level, urine drug triage, urinalysis, salicylate level, acetaminophen level, CBC, CMP, infusion of normal saline solution, twelve-lead EKG. Infusion of Zofran. 11/09/23 22:55 We provided the patient with 0.4 mg of Narcan. Within a few minutes, the patient's respiratory rate improved, patient was more awake and alert and answering questions. Patient states that she only took 5 tablets. She does not recall the time that she took them. She is adamant that she was not trying to commit suicide. She stated that she took those pills, even though they were not hers, to help control her bad headache pain. Patient does have a history of migraine headaches. Patient states that she did not take any more than the 5 tablets. Patient stated she is not suicidal or homicidal. Poison control was contacted. 11/10/23 00:40 Patient required a second dose of 0.4 mg of intravenous Narcan and responded well. I interpreted the patient's laboratory data results. Patient has a low CO2 lev el of 16. This is due to the patient's respiratory depression secondary to the synthetic opioid she took. The remainder of her laboratory data results do not show anything acute or emergent. Patient needs to be placed in observation on a monitored bed in the ICU setting. I spoke with telehospitalist Dr. Smiley. I reviewed the patient past medical history, presenting complaint, physical findings, laboratory and EKG results. She agrees that this patient should be placed in the ICU setting on observation status. We will repeat labs in a few hours and continue IV hydration. I will also write for periodic dosing of Narcan. Counseled pt/family regarding: lab results, diagnosis, need for follow-up, rad results Medical Desision Making - Independent Historian Additional History obtained from: Manager [employer]/EMT - Diagnostic Testing Diagnostic test were ordered, analyzed, and reviewed by me: Yes - Risk of complications The pt has a high risk of morbidity or mortality based on: Decision regarding hospitilization or escalation of hosp level of care - Departure Departure Disposition: Observation Clinical Impression: Overdose, Respiratory depression, Narcotic overdose Condition: Fair Critical Care Time: Yes Critical Care Time(excluding separately billable procedures): Critical 30-74 mins (45 minutes) Referrals: GASTON ZULUAGA [Primary Care Provider] - Follow up/PCP as directed
[2023-11-09 21:49] LABS: BASOPHIL % 0.2 % (0.1-1.2); Basophil (Absolute #) 0.02 x10^3/uL (0.01-0.08); Eosinophil % 8.3 % (0.7-5.8); Eosinophil (Absolute #) 0.97 x10^3/uL (0.04-0.36); Hematocrit 39.6 % (34.1-44.9); Hemoglobin 12.3 g/dL (11.2-15.7); IMMATURE GRAN # 0.02 x10^3u/L (0.001-0.031); IMMATURE GRAN % 0.2 % (0.001-0.429); Lymphocyte (Absolute #) 2.87 x10^3/uL (1.18-3.74); Lymphocytes % 24.6 % (19.3-51.7); Mean Corpuscular Hemoglobin 29.5 pg (25.6-32.2); Mean Corpuscular Hgb Concent. 31.1 g/dL (32.2-35.5); Mean Platelet Volume 9.3 fL (9.4-12.3); Monocyte (Absolute #) 0.78 x10^3/uL (0.24-0.86); Monocytes % 6.7 % (4.7-12.5); Platelet Count 392 x10^3/uL (182-369); Red Blood Count 4.17 x10^6/uL (3.93-5.22); White Blood Count 11.7 x10^3/uL (3.98-10.04)
[2023-11-09] MEDS ORDERED: Sodium Chloride 0.9% 1000 ML 1,000 ML ONE (21:55)
[2023-11-09] MEDS ORDERED: Zofran 4 MG/2 ML VIAL ONE (21:55)
[2023-11-09 22:02] LABS: ACETAMINOPHEN < 10 ug/ml (10-30); ALBUMIN 3.9 g/dL (3.5-5.0); ALKALINE PHOSPHATASE 101 U/L (38-126); ANION GAP 14.8 MEQ/L (5-15); BLOOD UREA NITROGEN 17 mg/dL (7-17); CHLORIDE 112 mmol/L (98-107); Calcium 8.6 mg/dL (8.4-10.2); EST GLOMERULAR FILTRATION RATE 70.4 ML/MIN; ETHYL ALCOHOL < 10 mg/dL (0-10); Glucose 101 mg/dL (74-106); Potassium 4.8 mmol/L (3.5-5.1); SALICYLATE < 1.0 mg/dL (2-20); SGOT/AST 25 U/L (14-36); SGPT/ALT 20 U/L (0-35); SODIUM 137 mmol/L (135-145); Total Protein 6.9 g/dL (6.3-8.2)
[2023-11-09] MEDS: Sodium Chloride 0.9% 1000 ML 1,000 ML IV STA (22:09)
[2023-11-09] MEDS: Zofran 4 MG/2 ML VIAL IV ONE (22:09)
[2023-11-09 22:21] LABS: Carbon Dioxide 16 mmol/L (22-30)
[2023-11-09] MEDS ORDERED: Narcan 0.4 MG/ML ONE (22:27)
[2023-11-09] MEDS: Narcan 0.4 MG/ML IV ONE (22:28)
[2023-11-09 22:30] LABS: Appearance Clear (Clear); Bacteria None Seen /HPF (None Seen); Bilirubin Negative (Negative); Blood Negative (Negative); Epithelial Cells None Seen /HPF (None Seen); Glucose, Urine Negative (Negative); Ketones Negative (Negative); Leukocyte Esterase Trace (Negative); Nitrite Negative (Negative); Protein,Urine Dip Trace (Negative); RBC 0-2 /HPF (0-5); Specific Gravity 1.015 (1.005-1.030); Urobilinogen 0.2 mg/dL (0.2)
[2023-11-09 22:33] LABS: ADD URINE CULTURE? ORDERED SEPARATELY (NO)
[2023-11-09 22:40] LABS: Amphetamine,Urine NEGATIVE (NEGATIVE); Barbiturate,Urine NEGATIVE (NEGATIVE); Benzodiazepine,Urine NEGATIVE (NEGATIVE); Cocaine,Urine NEGATIVE (NEGATIVE); Methadone,Urine NEGATIVE (NEGATIVE); Opiate,Urine NEGATIVE (NEGATIVE); PCP,Urine NEGATIVE (NEGATIVE); THC,Urine NEGATIVE (NEGATIVE)
[2023-11-09] MEDS: Sodium Chloride 0.9% 1000 ML 1,000 ML IV SCH (23:51)
[2023-11-10] MEDS ORDERED: Narcan 0.4 MG/ML ONE (00:05)
[2023-11-10] MEDS: Narcan 0.4 MG/ML IV ONE (00:09)
--- NOTE | 2023-11-10 00:56 | PCM.HP ---
History of Present Illness - Chief Complaint Chief Complaint: Drug overdosage Date: 11/09/23 History of Present Illness: 48 years old female with past medical history significant for depression/anxiety bipolar disorder chronic migraine fibromyalgia as reported having prior history of Chance attempt brought to the ER by family after finding lethargic at home. As per patient has not patient took 5 of his nucynta that is synthetic opioid, patient has been further told us that he was given 100 tablets 1 week ago and now 5 out of those tablets missing. Upon arrival patient was lethargic, after giving to Narcan her respiratory status got more stable and she became more alert she told us that she took medicines out of stress there was no intention of suicide or hurting herself. She was having severe migraine that was not getting better with any other meds she decided to take her pain medicine.Denied having any chest pain shortness of breath. No other GI urinary issues reported.Poison control contacted and advised to watch patient for at least 12 hours..Of Note,Most of the Info obtained from ER chart review as pt was in deep sleep during the time of my encounter. - Review of Systems All Other Systems: Reviewed and Negative (14 systems reviewed and marked ve except mentioned in [facility]) Medications & Allergies Home Medications: Home Medication List Atorvastatin Calcium 40 mg PO HS 08/02/23 [History Confirmed 09/23/23] Dicyclomine HCl 20 mg [Bentyl 20 mg] 20 mg PO QID 08/02/23 [History Confirmed 09/23/23] Duloxetine HCl 30 mg [Cymbalta 30 MG Capsule] 30 mg PO BID 08/02/23 [History Confirmed 09/23/23] Furosemide [Lasix] 20 mg PO DAILY 08/02/23 [History Confirmed 09/23/23] Lurasidone HCl 20 mg PO DINNER 08/02/23 [History Confirmed 09/23/23] Potassium Chloride 20 meq PO DAILY 08/02/23 [History Confirmed 09/23/23] Prazosin HCl 1 mg PO HS 08/02/23 [History Confirmed 09/23/23] Aspirin EC 81 mg [Ecotrin 81 mg] 81 mg PO DAILY 08/07/23 [History Confirmed 09/23/23] Ondansetron ODT 4 MG [Zofran Odt 4 mg] 4 mg PO Q4HPRN PRN 08/07/23 [History Confirmed 09/23/23] Albuterol Sulfate [Proair Digihaler] 2 puffs IH Q4H PRN PRN 08/08/23 [History Confirmed 09/23/23] Mirtazapine 15 mg PO HS 09/23/23 [History Confirmed 09/23/23] Allergies/Adverse Reactions: Allergies Allergy/AdvReac Type Severity Reaction Status Date / Time Sulfa (Sulfonamide Allergy Intermediate Vomiting Verified 09/23/23 12:19 Antibiotics) ketorolac [From Toradol] Allergy Unknown Verified 09/23/23 12:19 bee venom protein (honey bee) Allergy Verified 09/23/23 12:19 methylprednisolone Allergy anger Verified 09/23/23 12:19 [From Solu-Medrol] sumatriptan [From Imitrex] Allergy Verified 09/23/23 12:19 nitrofurantoin AdvReac Verified 09/23/23 12:19 [From Macrobid] tramadol AdvReac Nausea Verified 09/23/23 12:19 flu vaccine Allergy Intermediate Hoarseness Uncoded 09/23/23 12:19 of voice - Past Medical History Past Medical History: Yes Neurological History: Migraines ENT History: No Pertinent History Cardiac History: Peripheral Vascular Disease Respiratory History: No Pertinent History Endocrine Medical History: No Pertinent History Musculoskelatal History: Fibromyalgia GI Medical History: Gallbladder Disease History: Other Pyscho-Social History: Bipolar Reproductive Disorders: Other Comment: kidney stones, born with 1 kidney (left only), OVERDOSE - Female History Are you now?: No - Past Surgical History Past Surgical History: Yes Neuro Surgical History: No Pertinent History Cardiac History: No Pertinent History Respiratory Surgery: No Pertinent History GI Surgical History: Bowel Surgery, Cholecystectomy Genitourinary Surgical Hx: No Pertinent History Musculskeletal Surgical Hx: No Pertinent History Female Surgical History: Hysterectomy, Section, Tubal Ligation Other Surgical History: skin cancer removed twice, Umbilical hernia repair. ruptured hernia- colostomy and reversal. toe amputations to left foot, digits 2, 3, 4;. toe amputations to rt foot, digits 2, 3 Significant Family History: no pertinent family hx (No family history pertaining to this admission reported) - Social History Smoking Status: Current every day smoker How long have you smoked: 20yrs Exposure to second hand smoke: Yes Alcohol: None Drug Use: methamphetamines - Social Determinants of Health Will the patient participate in the screening: Declined to provide - Physical Exam Vital Signs: Vital Signs - 24 hr Temp Pulse Resp BP BP Pulse Ox 11/10/23 00:45 74 16 102/70 98 11/10/23 00:30 73 14 109/67 98 11/10/23 00:15 73 16 99/69 99 11/10/23 00:00 74 9 L 86/66 97 11/09/23 23:30 73 10 L 97/64 97 11/09/23 23:15 73 11 L 107/66 98 11/09/23 23:00 72 12 111/69 99 11/09/23 22:45 72 13 110/67 98 11/09/23 22:30 72 14 102/61 99 11/09/23 22:29 78 12 104/70 95 11/09/23 22:12 82 13 95 11/09/23 21:40 98.1 F 85 12 95/69 93 L Additional Findings: HEENT Young aged, average built , Currently in deep sleep NECK Supple,no thyromegaly, CVS S1+S2 + 0, no murmers RESP Bilateral equal air entry without Crepts/Wheezes heard GIT Soft non tender,non distended Skin, No rah, no Bruises LEGS No Edema 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 NEURO AOX0, 11/10/23 00:57 11/10/23 02:26 Results - Labs Lab/Micro Results: Lab Results-Last 24 Hours 11/09/23 11/09/23 11/09/23 Range/Units 21:40 21:40 21:53 WBC 11.7 H (3.98-10.04) x10^3/uL RBC 4.17 (3.93-5.22) x10^6/uL Hgb 12.3 (11.2-15.7) g/dL Hct 39.6 (34.1-44.9) % MCV 95.0 H (79.4-94.8) fL MCH 29.5 (25.6-32.2) pg MCHC 31.1 L (32.2-35.5) g/dL RDW 16.0 H (11.7-14.4) % Plt Count 392 H (182-369) x10^3/uL MPV 9.3 L (9.4-12.3) fL Gran % 60.0 (34.0-71.1) % Immature Gran % (Auto) 0.2 (0.001-0.429) % Nucleat RBC Rel Count 0.0 (0.00-0.2) % Eos # (Auto) 0.97 H (0.04-0.36) x10^3/uL Immature Gran # (Auto) 0.02 (0.001-0.031) x10^3u/L Absolute Lymphs (auto) 2.87 (1.18-3.74) x10^3/uL Absolute Monos (auto) 0.78 (0.24-0.86) x10^3/uL Absolute Nucleated RBC 0.00 (0.00-0.012) x10^3u/L Lymphocytes % 24.6 (19.3-51.7) % Monocytes % 6.7 (4.7-12.5) % Eosinophils % 8.3 H (0.7-5.8) % Basophils % 0.2 (0.1-1.2) % Absolute Granulocytes 7.00 H (1.56-6.13) x10^3/uL Basophils # 0.02 (0.01-0.08) x10^3/uL Sodium 137 (135-145) mmol/L Potassium 4.8 (3.5-5.1) mmol/L Chloride 112 H (98-107) mmol/L Carbon Dioxide 16 L* (22-30) mmol/L Anion Gap 14.8 (5-15) MEQ/L BUN 17 (7-17) mg/dL Creatinine 1.00 (0.52-1.04) mg/dL Estimated GFR 70.4 ML/MIN Glucose 101 (74-106) mg/dL Calcium 8.6 (8.4-10.2) mg/dL Total Bilirubin 0.30 (0.2-1.3) mg/dL AST 25 (14-36) U/L ALT 20 (0-35) U/L Alkaline Phosphatase 101 (38-126) U/L Serum Total Protein 6.9 (6.3-8.2) g/dL Albumin 3.9 (3.5-5.0) g/dL Urine Color Yellow (Yellow) Urine Appearance Clear (Clear) Urine pH 6.0 (4.6-8.0) Ur Specific [place] 1.015 (1.005-1.030) Urine Protein Trace A (Negative) Urine Glucose (UA) Negative (Negative) mg/dL Urine Ketones Negative (Negative) Urine Blood Negative (Negative) Urine Nitrite Negative (Negative) Urine Bilirubin Negative (Negative) Urine Urobilinogen 0.2 (0.2) mg/dL Ur Leukocyte Esterase Trace A (Negative) U Hyaline Cast (Auto) 3-5 A (0-2) /LPF Urine Microscopic RBC 0-2 (0-5) /HPF Urine Microscopic WBC 6-10 A (0-5) /HPF Ur Epithelial Cells None Seen (None Seen) /HPF Urine Bacteria None Seen (None Seen) /HPF Urine Culture Reflexed ORDERED SEPARATELY (NO) Salicylates < 1.0 L (2-20) mg/dL Urine Opiates Level (NEGATIVE) Ur Methadone (NEGATIVE) Acetaminophen < 10 L (10-30) ug/ml Urine Barbiturates (NEGATIVE) Ur Phencyclidine (PCP) (NEGATIVE) Urine Amphetamine (NEGATIVE) U Benzodiazepine Level (NEGATIVE) Urine Cocaine (NEGATIVE) Urine Marijuana (THC) (NEGATIVE) Ethyl Alcohol < 10 (0-10) mg/dL 11/09/23 Range/Units 21:53 WBC (3.98-10.04) x10^3/uL RBC (3.93-5.22) x10^6/uL Hgb (11.2-15.7) g/dL Hct (34.1-44.9) % MCV (79.4-94.8) fL MCH (25.6-32.2) pg MCHC (32.2-35.5) g/dL RDW (11.7-14.4) % Plt Count (182-369) x10^3/uL MPV (9.4-12.3) fL Gran % (34.0-71.1) % Immature Gran % (Auto) (0.001-0.429) % Nucleat RBC Rel Count (0.00-0.2) % Eos # (Auto) (0.04-0.36) x10^3/uL Immature Gran # (Auto) (0.001-0.031) x10^3u/L Absolute Lymphs (auto) (1.18-3.74) x10^3/uL Absolute Monos (auto) (0.24-0.86) x10^3/uL Absolute Nucleated RBC (0.00-0.012) x10^3u/L Lymphocytes % (19.3-51.7) % Monocytes % (4.7-12.5) % Eosinophils % (0.7-5.8) % Basophils % (0.1-1.2) % Absolute Granulocytes (1.56-6.13) x10^3/uL Basophils # (0.01-0.08) x10^3/uL Sodium (135-145) mmol/L Potassium (3.5-5.1) mmol/L Chloride (98-107) mmol/L Carbon Dioxide (22-30) mmol/L Anion Gap (5-15) MEQ/L BUN (7-17) mg/dL Creatinine (0.52-1.04) mg/dL Estimated GFR ML/MIN Glucose (74-106) mg/dL Calcium (8.4-10.2) mg/dL Total Bilirubin (0.2-1.3) mg/dL AST (14-36) U/L ALT (0-35) U/L Alkaline Phosphatase (38-126) U/L Serum Total Protein (6.3-8.2) g/dL Albumin (3.5-5.0) g/dL Urine Color (Yellow) Urine Appearance (Clear) Urine pH (4.6-8.0) Ur Specific [place] (1.005-1.030) Urine Protein (Negative) Urine Glucose (UA) (Negative) mg/dL Urine Ketones (Negative) Urine Blood (Negative) Urine Nitrite (Negative) Urine Bilirubin (Negative) Urine Urobilinogen (0.2) mg/dL Ur Leukocyte Esterase (Negative) U Hyaline Cast (Auto) (0-2) /LPF Urine Microscopic RBC (0-5) /HPF Urine Microscopic WBC (0-5) /HPF Ur Epithelial Cells (None Seen) /HPF Urine Bacteria (None Seen) /HPF Urine Culture Reflexed (NO) Salicylates (2-20) mg/dL Urine Opiates Level NEGATIVE (NEGATIVE) Ur Methadone NEGATIVE (NEGATIVE) Acetaminophen (10-30) ug/ml Urine Barbiturates NEGATIVE (NEGATIVE) Ur Phencyclidine (PCP) NEGATIVE (NEGATIVE) Urine Amphetamine NEGATIVE (NEGATIVE) U Benzodiazepine Level NEGATIVE (NEGATIVE) Urine Cocaine NEGATIVE (NEGATIVE) Urine Marijuana (THC) NEGATIVE (NEGATIVE) Ethyl Alcohol (0-10) mg/dL Assessment/Plan (1) Narcotic overdose Current Visit: Yes Status: Acute Code(s): T40.601A - POISONING BY UNSP NARCOTICS, ACCIDENTAL, INIT (2) Bipolar II disorder major depressive with atypical features Current Visit: No Status: Acute Code(s): F31.81 - BIPOLAR II DISORDER (3) Metabolic acidosis Current Visit: Yes Status: Acute Code(s): E87.20 - ACIDOSIS, UNSPECIFIED Telemedicine Encounter - Telemedicine Encounter Telemedicine Encounter: The entirety of this encounter was performed via Telemedicine" Drug overdosage/Toxic Encephalopathy Patient admitted with intentional overdosage of opioids Denying attempting suicide Responded to Narcan Poison control contacted, advised observation for 12 hours Keep admit on tele overnight Will get CT head to complete work up Will watch respiratory status closely Neurochecks frequently Metabolic acidosis Due to volume ablation She got 1 L in ER Will continue hydration Repeat labs in the a.m. Hypertension Bp running towards softer side Prazosin on hold Anxiety/bipolar Resume home meds and monitor Will be on hold tonight Migraine Currently no complaint Fibromyalgia Will resume home pain meds in the morning once patient get more alert DVT PPX SCD/Lovenox Code status Full D/c planning, Pending clinical stability i have reviewed pt labs, V/S and imaging in detail , all question/concerns addressed
[2023-11-10] MEDS ORDERED: Narcan 0.4 MG/ML IV PRN (01:14)
[2023-11-10] MEDS ORDERED: NON-FORMULARY ITEM (Albuterol Sulfate [Proair Digihaler] 90 MCG Aer.Pw.Bas) IH PRN (02:14)
[2023-11-10 05:04] LABS: Hematocrit 34.5 % (34.1-44.9); Hemoglobin 10.9 g/dL (11.2-15.7); Mean Cell Volume 93.8 fL (79.4-94.8); Mean Corpuscular Hemoglobin 29.6 pg (25.6-32.2); Mean Corpuscular Hgb Concent. 31.6 g/dL (32.2-35.5); Mean Platelet Volume 8.8 fL (9.4-12.3); Platelet Count 345 x10^3/uL (182-369); Red Blood Count 3.68 x10^6/uL (3.93-5.22); Red Cell Distribution Width 16.3 % (11.7-14.4); White Blood Count 9.6 x10^3/uL (3.98-10.04)
[2023-11-10 05:18] LABS: ANION GAP 9.6 MEQ/L (5-15); Creatinine 1 0.76 mg/dL (0.52-1.04); EST GLOMERULAR FILTRATION RATE 97.8 ML/MIN; Potassium 3.7 mmol/L (3.5-5.1)
[2023-11-10] MEDS: Sodium Bicarbonate 50 MEQ/50 ML VIAL*** 150 MEQ in Dextrose 5%/Water IV Soln. 1000 ML 1... IV SCH (07:59)
--- NOTE | 2023-11-10 09:25 | XRAY ---
Indication: Drug induced encephalopathy. Multiple contiguous axial images obtained through the head without contrast. Comparison: August 06, 2023 for overdose. Normal appearing brain parenchyma, ventricles, and bony calvarium. Visualized paranasal sinuses and mastoid air cells are clear. Impression: Continued normal CT head without contrast exam.
[2023-11-10] MEDS: Zofran 4 MG/2 ML VIAL IV PRN (09:27)
--- NOTE | 2023-11-10 09:27 | XRAY ---
Indication: Overdose. Hypoxia. Comparison: June 22, 2023 Portable chest again demonstrates normal heart and lungs. Bony thorax intact with minimal double curvature thoracolumbar scoliosis. No new/acute findings.
[2023-11-10] MEDS: PROVENTIL 2.5 MG/3 ML NEB IH PRN (10:18)
[2023-11-10] MEDS: ECOTRIN 81 MG PO SCH (10:45)
[2023-11-10] MEDS: BENTYL 20 MG PO SCH (10:45)
[2023-11-10] MEDS: ROCEPHIN 1 GM / 100 ML NaCl 1 GM/100 ML IVPB IV SCH (10:46)
[2023-11-10] MEDS: ENOXAPARIN SODIUM SQ SCH (10:46)
[2023-11-10] MEDS: Compazine 10 MG/2 ML IV PRN (12:39)
[2023-11-10 12:52] LABS: ANION GAP 9.3 MEQ/L (5-15); BILIRUBIN,TOTAL 0.3 mg/dL (0.2-1.3); Calcium 8.1 mg/dL (8.4-10.2); Creatinine 1 0.86 mg/dL (0.52-1.04); EST GLOMERULAR FILTRATION RATE 84.3 ML/MIN; Potassium 4.2 mmol/L (3.5-5.1); Total Protein 5.5 g/dL (6.3-8.2)
[2023-11-10] MEDS: TYLENOL 325 MG PO PRN (13:06)
[2023-11-10 18:12] VITALS: TEMP 98
[2023-11-10 19:38] LABS: 027 TOX PROD PRESUMPTIVE NEGATIVE (NEGATIVE); TOXIGENIC C. DIFF ORG NEGATIVE (NEGATIVE)
[2023-11-10] MEDS: ZOCOR 20MG PO SCH (21:44)
[2023-11-10] MEDS: NEURONTIN PO SCH (21:45)
[2023-11-10] MEDS: Cymbalta 30 MG Capsule PO SCH (21:45)
[2023-11-10] MEDS: Pletal 100 MG PO SCH (21:55)
[2023-11-10] MEDS ORDERED: NON-FORMULARY ITEM (Duloxetine Hcl [Cymbalta] 60 MG Capsule.Dr) PO SCH (22:00)
[2023-11-10] MEDS ORDERED: NON-FORMULARY ITEM (Gabapentin [Neurontin] 600 MG Tablet) PO SCH (22:00)
[2023-11-10] MEDS ORDERED: LIPITOR 40MG PO SCH (22:00)
[2023-11-10] MEDS ORDERED: NON-FORMULARY ITEM (Cilostazol [Cilostazol] 50 MG Tablet) PO SCH (22:00)
--- NOTE | 2023-11-11 05:35 | PCM.DS ---
Discharge Summary Date of Admission: 11/10/23 01:09 Date of Discharge: 11/11/23 Admitting Physician: NELLY GARCIA MD Consults: Consults on Case 11/10/23 09:49 Consult,Shayy [Psychiatric Consult] STAT Primary Care Provider: GASTON CAMPUZANO Allergies Allergies Sulfa (Sulfonamide Antibiotics) Allergy (Intermediate, Verified 09/23/23 12:19) Vomiting ketorolac [From Toradol] Allergy (Unknown, Verified 09/23/23 12:19) bee venom protein (honey bee) Allergy (Verified 09/23/23 12:19) methylprednisolone [From Solu-Medrol] Allergy (Verified 09/23/23 12:19) anger can take oral steroids, IV steroids she cannot take -- states she gets "roid rage" sumatriptan [From Imitrex] Allergy (Verified 09/23/23 12:19) nitrofurantoin [From Macrobid] Adverse Reaction (Verified 09/23/23 12:19) tramadol Adverse Reaction (Verified 09/23/23 12:19) Nausea flu vaccine Allergy (Intermediate, Uncoded 09/23/23 12:19) Hoarseness of voice Hospital Summary - Hospital Course Hospital Course: 8 years old female with past medical history significant for depression/anxiety bipolar disorder chronic migraine fibromyalgia as reported having prior history of Suicidal attempt brought to the ER by family after finding lethargic at home. As per patient has not patient took 5 of his nucynta that is synthetic opioid, patient has been further told us that he was given 100 tablets 1 week ago and now 5 out of those tablets missing. Upon arrival patient was lethargic, after giving to Narcan her respiratory status got more stable and she became more alert she told us that she took medicines out of stress there was no intention of suicide or hurting herself. She was having severe migraine that was not getting better with any other meds she decided to take her pain medicine.Denied having any chest pain shortness of breath. No other GI urinary issues reported.Poison control contacted and advised to watch patient for at least 12 hours. Of Note,Most of the Info obtained from ER chart review as pt was in deep sleep during the time of my encounter. Head CT and CXR unremarkable. Patient now at baseline. Denies suicidal ideation. [facility] consulted, patient does not meet IP criteria. Safety plan is in place. Referral to OTP clinic in [facility] for assessment s/p discharge. Patient is agreeable to plan and stable for discharge. Discharge Note Latest Assessment & Plan (1) Narcotic overdose Current Visit: Yes Status: Acute Code(s): T40.601A - POISONING BY UNSP NARC OTICS, ACCIDENTAL, INIT (2) Bipolar II disorder major depressive with atypical features Current Visit: No Status: Acute Code(s): F31.81 - BIPOLAR II DISORDER (3) Metabolic acidosis Current Visit: Yes Status: Acute Code(s): E87.20 - ACIDOSIS, UNSPECIFIED Telemedicine Encounter - Telemedicine Encounter Telemedicine Encounter: The entirety of this encounter was performed via Telemedicine" Drug overdosage/Toxic Encephalopathy Patient admitted with intentional overdosage of opioids Denying attempting suicide Responded to Narcan Poison control contacted, advised observation for 12 hours Keep admit on tele overnight Will get CT head to complete work up Will watch respiratory status closely Neurochecks frequently Metabolic acidosis Due to volume ablation She got 1 L in ER Will continue hydration Repeat labs in the a.m. 11/11/23 -bicarb drip with correction -dcd Hypertension Bp running towards softer side Prazosin on hold 11/11/23: -home meds resumed -stable Anxiety/bipolar Resume home meds and monitor Will be on hold tonight 11/10: -resumed with no complications Migraine Currently no complaint Fibromyalgia Will resume home pain meds in the morning once patient get more alert DVT PPX SCD/Lovenox Code status Full D/c planning, Pending clinical stability I spent 35 minutes [id number] with the patient on the day of discharge performing discharge exam, discussing hospital stay and discharge instructions with patient and caregivers, preparation of discharge records, prescriptions & referral forms and addressing any questions/concerns the patient had as documented above. - Vitals & Intake/Output Vital Signs: Vital Signs Temperature 98.0 F 11/10/23 18:12 Pulse Rate 79 11/11/23 04:00 Respiratory Rate 21 11/11/23 04:00 Blood Pressure 109/79 11/11/23 04:00 O2 Sat by Pulse Oximetry 93 L 11/11/23 04:00 Intake & Output: Intake & Output 11/08/23 11/09/23 11/10/23 11/11/23 11:59 11:59 11:59 11:59 Intake Total 898 1145 Output Total 0 Balance -1152 1145 Weight 70.4 kg - Lab Result Diagrams: 11/11/23 07:36 11/11/23 07:36 Lab Results-Last 24 Hrs: Lab Results-Last 24 Hours 11/10/23 11/10/23 Range/Units 11:48 18:45 Sodium 143 (135-145) mmol/L Potassium 4.2 (3.5-5.1) mmol/L Chloride 119 H (98-107) mmol/L Carbon Dioxide 20 L (22-30) mmol/L Anion Gap 9.3 (5-15) MEQ/L BUN 9 (7-17) mg/dL Creatinine 0.86 (0.52-1.04) mg/dL Estimated GFR 84.3 ML/MIN Glucose 101 (74-106) mg/dL Calcium 8.1 L (8.4-10.2) mg/dL Total Bilirubin 0.30 (0.2-1.3) mg/dL AST 17 (14-36) U/L ALT 16 (0-35) U/L Alkaline Phosphatase 94 (38-126) U/L Serum Total Protein 5.5 L (6.3-8.2) g/dL Albumin 3.0 L (3.5-5.0) g/dL C. difficile Screen NEGATIVE (NEGATIVE) C.difficile [id number] PRESUMPTIVE NEGATIVE (NEGATIVE) Micro Results-Entire Visit: Microbiology 11/10/23 18:44 Campylobacter Result 1 - Final Stool Not Reportable Campylobacter Result 2 - Final Not Reportable Campylobactor Result 3 - Final Not Reportable Campylobacter Result 4 - Final Not Reportable Campylobactor Susceptibility - Final Not Reportable - Radiology Exams Ordered Rad Exams-Entire Visit: Radiology Procedures Category Date Time Status CHEST 1 VIEW (PORTABLE) Stat Exams 11/10/23 02:16 Completed HEAD WITHOUT CONTRAST [CT] Stat Exams 11/10/23 02:21 Completed - Procedures and Test Procedures and Tests throughout Hospitalization: Therapy Orders & Screens 11/10/23 01:14 Oxygen Nasal Cannula 2 lpm Comment: Respiratory Therapy Consult ONCE Comment: Reason For Exam: 11/10/23 02:11 Respiratory Therapy Assessment DAILY Comment: Diagnosis: Drug overdosage 11/10/23 02:33 Smoking Cessation Education ONCE Comment: Diagnosis: Drug overdosage Smoking Status: Current every day smoker How long have you smoked: 20yrs Have you smoked in the past 12 months: Yes Approximately how many cigarettes per day: 1 ppd Do you dip or chew tobacco: No If,Former Smoker,when did you quit: UNSURE 11/10/23 09:23 Incentive Spirometry ROUTINE Comment: Diagnosis: Drug overdosage Discharge Exam General Appearance: no apparent distress Neurologic Exam: alert, oriented x 3, cooperative Eye Exam: PERRL Ears, Nose, Throat Exam: normal ENT inspection Neck Exam: normal inspection Respiratory Exam: normal breath sounds, lungs clear Cardiovascular Exam: regular rate/rhythm, normal heart sounds Gastrointestinal/Abdomen Exam: No tenderness, No mass Pelvic Exam: deferred Rectal Exam: deferred Back Exam: normal inspection, normal range of motion, No CVA tenderness, No vertebral tenderness Extremity Exam: normal inspection, normal range of motion Skin Exam: normal color, warm, dry Final Diagnosis/Problem List - Final Discharge Diagnosis/Problem (1) Metabolic acidosis Current Visit: Yes Status: Acute Code(s): E87.20 - ACIDOSIS, UNSPECIFIED (2) Narcotic overdose Current Visit: Yes Status: Acute Code(s): T40.601A - POISONING BY UNSP NARCOTICS, ACCIDENTAL, INIT (3) Bipolar II disorder major depressive with atypical features Current Visit: No Status: Acute Code(s): F31.81 - BIPOLAR II DISORDER - Discharge Disposition: Home, Self-Care Condition: Stable Prescriptions: Continue Furosemide [Lasix] 20 mg PO DAILY Dicyclomine HCl 20 mg [Bentyl 20 mg] 20 mg PO QID Potassium Chloride 20 meq PO DAILY Atorvastatin Calcium 40 mg PO HS Ondansetron ODT 4 MG [Zofran Odt 4 mg] 4 mg PO Q4HPRN PRN PRN Reason: Nausea Aspirin EC 81 mg [Ecotrin 81 mg] 81 mg PO DAILY Albuterol Sulfate [Proair Digihaler] 2 puffs IH Q4H PRN PRN PRN Reason: Shortness Of Breath/Wheezing cilostazoL [Cilostazol] 50 mg PO BID Duloxetine HCl [Cymbalta] 60 mg PO BID Estradiol [Estrace] 0 gm VG HS Gabapentin [Neurontin] 600 mg PO QID Instructions: Opioid overdose Follow up with: GASTON CAMPUZANO [Primary Care Provider] - 11/17/23 1:00 pm Forms: Discharge Instructions
[2023-11-11 07:37] LABS: Absolute Neutrophil Ct (ANC) 5.51 x10^3/uL (1.56-6.13); BASOPHIL % 0.2 % (0.1-1.2); Basophil (Absolute #) 0.02 x10^3/uL (0.01-0.08); Eosinophil % 4.9 % (0.7-5.8); Eosinophil (Absolute #) 0.43 x10^3/uL (0.04-0.36); Hematocrit 38.7 % (34.1-44.9); Hemoglobin 12.3 g/dL (11.2-15.7); IMMATURE GRAN # 0.02 x10^3u/L (0.001-0.031); IMMATURE GRAN % 0.2 % (0.001-0.429); Lymphocyte (Absolute #) 2.04 x10^3/uL (1.18-3.74); Lymphocytes % 23.2 % (19.3-51.7); Mean Corpuscular Hemoglobin 29.6 pg (25.6-32.2); Mean Corpuscular Hgb Concent. 31.8 g/dL (32.2-35.5); Mean Platelet Volume 8.8 fL (9.4-12.3); Monocyte (Absolute #) 0.76 x10^3/uL (0.24-0.86); Monocytes % 8.7 % (4.7-12.5); Neutrophil % 62.8 % (34.0-71.1); Platelet Count 372 x10^3/uL (182-369); Red Blood Count 4.16 x10^6/uL (3.93-5.22); Red Cell Distribution Width 16.3 % (11.7-14.4); White Blood Count 8.8 x10^3/uL (3.98-10.04)
[2023-11-11 08:02] LABS: ALBUMIN 3.1 g/dL (3.5-5.0); ANION GAP 9.8 MEQ/L (5-15); BILIRUBIN,TOTAL 0.4 mg/dL (0.2-1.3); Calcium 8.4 mg/dL (8.4-10.2); Creatinine 1 0.61 mg/dL (0.52-1.04); EST GLOMERULAR FILTRATION RATE 111.6 ML/MIN; Potassium 3.4 mmol/L (3.5-5.1); Total Protein 5.8 g/dL (6.3-8.2)
[2023-11-11] MEDS: Klor Con PO SCH ×2 (08:34→08:58)
[2023-11-11] MEDS: SODIUM BICARBONATE PO SCH (09:00)
[2023-11-11] MEDS ORDERED: NON-FORMULARY ITEM (Potassium Chloride [Potassium Chloride] 20 MEQ Tablet.Er) PO SCH (10:00)
[2023-11-11 10:41] VITALS: BP 125/86; PULSE 85; RESP 19; O2SAT 96
[2023-11-12] MEDS ORDERED: BENTYL 20 MG PO SCH (10:00)
== END 2023-11-11 11:10 | disposition home or self-care (01) ==
LOC: ED 21:27 → ICU 11-10 01:09
PROVIDERS: ADMIT Internal Medicine; ATTEND Internal Medicine
DX: E87.20 Acidosis, unspecified (principal); T40.601A Poisoning by unspecified narcotics, accidental (unintentional), initial encounter; F31.81 Bipolar II disorder; I10 Essential (primary) hypertension; G43.909 Migraine, unspecified, not intractable, without status migrainosus; M79.7 Fibromyalgia; F17.200 Nicotine dependence, unspecified, uncomplicated; Z79.899 Other long term (current) drug therapy
CPT/HCPCS: 36000; 36415; 51702; 70450; 71045; 80048; 80053; 80143; 80179; 80307; 81001; 82077; 82947; 83735; 85025; 85027; 87086; 87493; 90791; 93041; 93268; 94640; 96374; 96375; 99285; 99291; J0696; J2310; J2405; J7609; Q3014; A9270-GY; G0378

== ENCOUNTER 2024-01-11 12:54 | Emergency (ER) | payer BC, OTHER ==
--- NOTE | 2024-01-11 12:59 | ERPHSYRPT ---
- History of Present Illness Time Seen by Provider: 01/11/24 12:59 Source: patient, family Exam Limitations: no limitations Physician History: This is a 48-year-old white female patient was brought in by her spouse by private vehicle. She is a patient of Dr. Zuluaga. Patient presents with sharp stabbing back pain associated with coughing. She has had coughing episodes for approximately 1 week. Patient has a history of bipolar disorder, migraine headaches, fibromyalgia, hyperlipidemia and peripheral vascular disease. She also has a history of overdose and a history of suicidal ideation/attempts in the past. She has not had any fevers. She has no known exposures to individuals with similar symptoms or who have been diagnosed with viral/flu illnesses. Patient states she has had these types of symptoms before and has been diagnosed with pleurisy. Timing/Duration: week(s) (1) Severity: mild Associated Symptoms: cough, chest pain, No nausea, No vomiting, No abdominal pain, No shortness of breath, No chills Allergies/Adverse Reactions: Sulfa (Sulfonamide Antibiotics) Allergy (Intermediate, Verified 01/11/24 13:01) Vomiting ketorolac [From Toradol] Allergy (Unknown, Verified 01/11/24 13:01) bee venom protein (honey bee) Allergy (Verified 01/11/24 13:01) methylprednisolone [From Solu-Medrol] Allergy (Verified 01/11/24 13:01) anger can take oral steroids, IV steroids she cannot take -- states she gets "roid rage" promethazine [From Phenergan] Allergy (Verified 01/11/24 13:01) sumatriptan [From Imitrex] Allergy (Verified 01/11/24 13:01) nitrofurantoin [From Macrobid] Adverse Reaction (Verified 01/11/24 13:01) tramadol Adverse Reaction (Verified 01/11/24 13:01) Nausea flu vaccine Allergy (Intermediate, Uncoded 01/11/24 13:01) Hoarseness of voice Home Medications: Dicyclomine HCl 20 mg [Bentyl 20 mg] 20 mg PO QID 08/02/23 [History] Aspirin EC 81 mg [Ecotrin 81 mg] 81 mg PO DAILY 08/07/23 [History] Duloxetine HCl [Cymbalta] 60 mg PO BID 11/10/23 [History] Gabapentin [Neurontin] 600 mg PO QID 11/10/23 [History] Hx Tetanus, Diphtheria Vaccination/Date Given: Yes Hx Influenza Vaccination/Date Given: No Hx Pneumococcal Vaccination/Date Given: No Travel Risk - International Travel Have you traveled outside of the country in past 3 weeks: No - Emerging Infectious Disease Are you exhibiting symptoms associated with any current EIDs: No - Review of Systems Constitutional: No Symptoms Eyes: No Symptoms Ears, Nose, & Throat: No Symptoms Respiratory: Wheezing Cardiac: No Symptoms (Bilateral expiratory) Abdominal/Gastrointestinal: No Symptoms Genitourinary Symptoms: No Symptoms Musculoskeletal: No Symptoms Skin: No Symptoms Neurological: No Symptoms Psychological: No Symptoms Endocrine: No Symptoms Hematologic/Lymphatic: No Symptoms Immunological/Allergic: No Symptoms All Other Systems: Reviewed and Negative - Past Medical History Pertinent Past Medical History: Yes Neurological History: Migraines ENT History: No Pertinent History Cardiac History: Peripheral Vascular Disease Respiratory History: No Pertinent History Endocrine Medical History: No Pertinent History Musculoskeletal History: Fibromyalgia GI Medical History: Gallbladder Disease History: Other Psycho-Social History: Bipolar Female Reproductive Disorders: Other Other Medical History: kidney stones, born with 1 kidney (left only), OVERDOSE - Past Surgical History Past Surgical History: Yes Neuro Surgical History: No Pertinent History Cardiac: No Pertinent History Respiratory: No Pertinent History Gastrointestinal: Bowel Surgery, Cholecystectomy Genitourinary: No Pertinent History Musculoskeletal: No Pertinent History Female Surgical History: Hysterectomy, Section, Tubal Ligation Other Surgical History: skin cancer removed twice, Umbilical hernia repair. ruptured hernia- colostomy and reversal. toe amputations to left foot, digits 2, 3, 4;. toe amputations to rt foot, digits 2, 3 Significant Family History: no pertinent family hx (No family history pertaining to this admission reported) - Social History Smoking Status: Current every day smoker How long have you smoked: 20yrs Exposure to second hand smoke: Yes Drug Use: methamphetamines Patient Lives Alone: No - Social Determinants of Health Will the patient participate in the screening: Declined to provide - Nursing Vital Signs Nursing Vital Signs: Initial Vital Signs Pulse Rate 93 H 01/11/24 13:01 Blood Pressure 122/89 01/11/24 13:01 O2 Sat by Pulse Oximetry 93 L 01/11/24 13:01 Pain Scale Pain Intensity 9 - Physical Exam General Appearance: no apparent distress, alert, anxiety Eye Exam: PERRL/EOMI, eyes nml inspection Ears, Nose, Throat Exam: normal ENT inspection, moist mucous membranes Neck Exam: normal inspection, non-tender, supple, full range of motion Respiratory Exam: wheezing (Bilateral expiratory), No chest tenderness, No respiratory distress Cardiovascular Exam: regular rate/rhythm, normal heart sounds, normal peripheral pulses Gastrointestinal/Abdomen Exam: soft, normal bowel sounds, No tenderness Pelvic Exam: not done Rectal Exam: not done Back Exam: normal inspection, normal range of motion, No CVA tenderness, No vertebral tenderness Extremity Exam: normal inspection, normal range of motion, pelvis stable Neurologic Exam: alert, oriented x 3, cooperative, project surveyor II-XII nml as tested, nml cerebellar function, nml station & gait, sensation nml Skin Exam: normal color, warm, dry Lymphatic Exam: No adenopathy SpO2 Interpretation: normal O2 Delivery: Room Air - Course Nursing assessment & vital signs reviewed: Yes Ordered Tests: Active Orders 24 hr Category Date Time Status CHEST 1 VIEW (PORTABLE) Stat Exams 01/11/24 13:19 Taken Medication Summary Discontinued Medications Generic Name Dose Route Start Last Admin Trade Name Yehuda PRN Reason Stop Dose Admin Hydrocodone Bitart/Acetaminophen 10 ml 01/11/24 13:26 01/11/24 14:00 Hydrocodone/Acetaminophen 5 Ml Udcup PO 01/11/24 13:27 10 ml STAT STA Administration Hydrocodone Bitart/Acetaminophen Confirm 01/11/24 13:59 Hydrocodone/Acetaminophen 5 Ml Udcup Administered 01/11/24 14:00 Dose 10 ml .ROUTE .STK-MED ONE Ondansetron HCl 4 mg 01/11/24 13:26 01/11/24 14:00 Zofran 4 Mg/Udtablet Orally Disintegrating PO 01/11/24 13:27 4 mg STAT ONE Administration Ondansetron HCl Confirm 01/11/24 13:59 Zofran 4 Mg/Udtablet Orally Disintegrating Administered 01/11/24 14:00 Dose 4 mg .ROUTE .STK-MED ONE Lab/Rad Data: Laboratory Results 01/11/24 01/11/24 Range/Units 13:48 13:48 Influenza Type A Ag NEGATIVE (NEGATIVE) Influenza Type B Ag NEGATIVE (NEGATIVE) RSV (PCR) NEGATIVE (NEGATIVE) SARS-CoV-2 (PCR) NEGATIVE (NEGATIVE) Group A Strep Antibody NOT DETECTED (NEGATIVE) - Progress Progress: improved, pain not gone completely, re-examined Progress Note: 01/11/24 13:44 My medical decision making and the assignment of low to moderate complexity to this patient's medical issue at this time is based on review of the patient's past medical history, review the patient's medication list, review the patient drug allergy list, history present illness and physical findings on examination. The workup in this patient includes viral swabs and group A strep swab and chest x-ray. Differential diagnosis includes but is not limited to pneumonia, pleurisy, viral illness 01/11/24 14:32 I interpreted the patient's laboratory data results. There is no evidence of any acute, emergent medical issue. I interpreted the preliminary chest x-ray report. There is no evidence of any acute cardiopulmonary process. Counseled pt/family regarding: lab results, diagnosis, need for follow-up, rad results Medical Desision Making - Independent Historian Additional History obtained from: Spouse - Diagnostic Testing Diagnostic test were ordered, analyzed, and reviewed by me: Yes - Risk of complications The pt has a mod risk of morbidity or mortality based on: Need for prescription drug management - Departure Departure Disposition: Home Clinical Impression: Pleurisy Condition: Stable Critical Care Time: No Referrals: GASTON ZULUAGA [Primary Care Provider] - Follow up/PCP as directed Additional Instructions: Drink plenty fluids. Take your medication as prescribed. Call your primary care provider tomorrow, 01/12/2024, to make arrangements for follow-up appointment for further evaluation management. Continue your inhalers as prescribed. Use your nebulizer treatments every 4 hours while awake for the next 48 hours. If there are no contraindications, use Tylenol and ibuprofen for pain control Prescriptions: Cephalexin Mh 500 mg [Keflex 500 mg] 500 mg PO TID #21 cap
[2024-01-11 13:17] VITALS: TEMP 98.1
[2024-01-11] MEDS ORDERED: HYDROCODONE-ACETAMIN 2.5-108/5 ML SOLUTION ONE (13:59)
[2024-01-11] MEDS ORDERED: ZOFRAN ODT 4 MG ONE (13:59)
[2024-01-11] MEDS: ZOFRAN ODT 4 MG PO ONE (14:00)
[2024-01-11] MEDS: HYDROCODONE-ACETAMIN 2.5-108/5 ML SOLUTION PO STA (14:00)
[2024-01-11 14:25] LABS: INFLUENZA A NEGATIVE (NEGATIVE); INFLUENZA B NEGATIVE (NEGATIVE); RESPIRATORY SYNCTIAL VIRUS NEGATIVE (NEGATIVE); SARS-CoV-2 Xpert Express NEGATIVE (NEGATIVE)
[2024-01-11] MEDS ORDERED: DELTASONE 20 MG ONE (14:46)
[2024-01-11] MEDS ORDERED: KEFLEX 500 MG ONE (14:46)
[2024-01-11] MEDS: DELTASONE 20 MG PO ONE (14:51)
[2024-01-11] MEDS: KEFLEX 500 MG PO ONE (14:51)
[2024-01-11 14:52] VITALS: BP 94/76; PULSE 89; RESP 15; O2SAT 98
--- NOTE | 2024-01-11 18:50 | XRAY ---
Indication: Chest pain and cough. Comparison: November 10, 2023 Portable chest unchanged again demonstrating normal heart and lungs. Bony thorax intact again with minimal dextroscoliosis. No new/acute findings.
== END 2024-01-11 14:55 | disposition home or self-care (01) ==
LOC: ED 12:54
DX: R09.1 Pleurisy (principal); M54.9 Dorsalgia, unspecified; R05.1 Acute cough; E78.5 Hyperlipidemia, unspecified; Z79.899 Other long term (current) drug therapy; Z72.0 Tobacco use
CPT/HCPCS: 0241U; 71045; 87651; 99283; Q0162; A9270-GY

== ENCOUNTER 2024-04-01 11:47 | Observation (INO) | payer BC, OTHER ==
[2024-04-01 12:22] LABS: Absolute Neutrophil Ct (ANC) 8.03 x10^3/uL (1.56-6.13); BASOPHIL % 0.3 % (0.1-1.2); Basophil (Absolute #) 0.03 x10^3/uL (0.01-0.08); Eosinophil % 4.6 % (0.7-5.8); Eosinophil (Absolute #) 0.55 x10^3/uL (0.04-0.36); Hematocrit 38.2 % (34.1-44.9); Hemoglobin 12.5 g/dL (11.2-15.7); IMMATURE GRAN # 0.05 x10^3u/L (0.001-0.031); IMMATURE GRAN % 0.4 % (0.001-0.429); Lymphocytes % 21.7 % (19.3-51.7); Mean Cell Volume 99.2 fL (79.4-94.8); Mean Corpuscular Hemoglobin 32.5 pg (25.6-32.2); Mean Corpuscular Hgb Concent. 32.7 g/dL (32.2-35.5); Mean Platelet Volume 8.9 fL (9.4-12.3); Monocyte (Absolute #) 0.72 x10^3/uL (0.24-0.86); Platelet Count 387 x10^3/uL (182-369); Red Blood Count 3.85 x10^6/uL (3.93-5.22); Red Cell Distribution Width 12.7 % (11.7-14.4)
[2024-04-01] MEDS ORDERED: Sodium Chloride 0.9% 1000 ML 1,000 ML ONE (12:22)
[2024-04-01] MEDS: Sodium Chloride 0.9% 1000 ML 1,000 ML IV STA (12:23)
[2024-04-01 12:30] LABS: HCG URINE TEST NEGATIVE (NEGATIVE)
[2024-04-01 12:35] LABS: Appearance Clear (Clear); Bacteria None Seen /HPF (None Seen); Bilirubin Negative (Negative); Blood Negative (Negative); Epithelial Cells None Seen /HPF (None Seen); Glucose, Urine Negative (Negative); Hyaline Casts NONE SEEN /LPF (0-2); Ketones Negative (Negative); Leukocyte Esterase Negative (Negative); Nitrite Negative (Negative); Ph 6.5 (4.6-8.0); Protein,Urine Dip Trace (Negative); RBC 0-2 /HPF (0-5); Urobilinogen 0.2 mg/dL (0.2); WBC 0-2 /HPF (0-5)
[2024-04-01 12:35] LABS: ACETAMINOPHEN 10 ug/ml (10-30); ALBUMIN 4.4 g/dL (3.5-5.0); ALKALINE PHOSPHATASE 95 U/L (38-126); BLOOD UREA NITROGEN 29 mg/dL (7-17); CHLORIDE 110 mmol/L (98-107); Calcium 9.4 mg/dL (8.4-10.2); Carbon Dioxide 18 mmol/L (22-30); Creatinine 1 0.83 mg/dL (0.52-1.04); EST GLOMERULAR FILTRATION RATE 87.5 ML/MIN; ETHYL ALCOHOL < 10 mg/dL (0-10); Glucose 85 mg/dL (74-106); MAGNESIUM 2.1 mg/dL (1.6-2.3); Potassium 3.9 mmol/L (3.5-5.1); SALICYLATE < 1.0 mg/dL (2-20); SGOT/AST 36 U/L (14-36); SGPT/ALT 22 U/L (0-35); SODIUM 140 mmol/L (135-145); Total Protein 7.4 g/dL (6.3-8.2)
[2024-04-01 13:12] LABS: Amphetamine,Urine POSITIVE (NEGATIVE); Barbiturate,Urine NEGATIVE (NEGATIVE); Benzodiazepine,Urine NEGATIVE (NEGATIVE); Cocaine,Urine NEGATIVE (NEGATIVE); Methadone,Urine NEGATIVE (NEGATIVE); Opiate,Urine POSITIVE (NEGATIVE); PCP,Urine NEGATIVE (NEGATIVE); THC,Urine NEGATIVE (NEGATIVE)
--- NOTE | 2024-04-01 13:21 | XRAY ---
Indication: Altered mental status. Overdose. Multiple contiguous axial images obtained through the head without contrast. Comparison: November 10, 2023. Base of brain slightly degraded by motion artifact. Grossly normal appearing brain parenchyma, ventricles, and bony calvarium. Visualized paranasal sinuses and mastoid air cells are clear. Impression: Continued grossly normal CT head without contrast exam.
--- NOTE | 2024-04-01 13:21 | XRAY ---
Indication: Altered mental status. Overdose. Comparison: January 11, 2024 Portable apical lordotic chest again demonstrates normal heart, lungs, and bony thorax.
--- NOTE | 2024-04-01 14:41 | ERPHSYRPT ---
- History of Present Illness Time Seen by Provider: 04/01/24 11:58 Source: family, EMS Exam Limitations: clinical condition Patient Subjective Stated Complaint: PT HERE FOR POSSIBLE OVER DOSE, PT TAKES NEUROTIN,NUCYNTA. AND HX OF METH USE Triage Nursing Assessment: PT AROUSES ONLY TO PAINFUL STIMULI,COMBATIVE AT TIMES, RESP EASY, SKIN W/D/P. CHEST CLEAR, ABD SOFT, NO EDMEA NOTED, PT HAS AMPUTATIONS TO TOES ON BOTH FEET Physician History: 49-year-old with history of anxiety/depression/chronic pain/substance abuse with recurrent overdoses presented in the ER with altered mental status/confusion and increased sleepiness than usual by . reports patient possibly took some of his Nucynta and Neurontin of her own or possibly methamphetamine with questionable overdose on either are all. Per him patient was in town and all of a sudden she was very happy and laughing around 2 days ago and today she was difficult to wake up. Patient is sleepy on EMS arrival and in the ER, arousable to painful stimuli, not answering most of the questions. Moving all 4 extremities. Vital stable. History is limited. Allergies/Adverse Reactions: Sulfa (Sulfonamide Antibiotics) Allergy (Intermediate, Verified 01/11/24 13:01) Vomiting ketorolac [From Toradol] Allergy (Unknown, Verified 01/11/24 13:01) bee venom protein (honey bee) Allergy (Verified 01/11/24 13:01) methylprednisolone [From Solu-Medrol] Allergy (Verified 01/11/24 13:01) anger can take oral steroids, IV steroids she cannot take -- states she gets "roid rage" promethazine [From Phenergan] Allergy (Verified 01/11/24 13:01) sumatriptan [From Imitrex] Allergy (Verified 01/11/24 13:01) nitrofurantoin [From Macrobid] Adverse Reaction (Verified 01/11/24 13:01) tramadol Adverse Reaction (Verified 01/11/24 13:01) Nausea flu vaccine Allergy (Intermediate, Uncoded 01/11/24 13:01) Hoarseness of voice Home Medications: Dicyclomine HCl 20 mg [Bentyl 20 mg] 20 mg PO QID 08/02/23 [History] Aspirin EC 81 mg [Ecotrin 81 mg] 81 mg PO DAILY 08/07/23 [History] Duloxetine HCl [Cymbalta] 60 mg PO BID 11/10/23 [History] Gabapentin [Neurontin] 600 mg PO QID 11/10/23 [History] Hx Tetanus, Diphtheria Vaccination/Date Given: Yes Hx Influenza Vaccination/Date Given: No Hx Pneumococcal Vaccination/Date Given: No Immunizations Up to Date: Yes Travel Risk - International Travel Have you traveled outside of the country in past 3 weeks: No - Emerging Infectious Disease Are you exhibiting symptoms associated with any current EIDs: No Symptoms: Cough: New Onset, Shortness of Breath, Other (Please Comment) Comment: chills - Review of Systems All Other Systems: Unable due to condition - Past Medical History Pertinent Past Medical History: Yes Neurological History: Migraines ENT History: No Pertinent History Cardiac History: Peripheral Vascular Disease Respiratory History: No Pertinent History Endocrine Medical History: No Pertinent History Musculoskeletal History: Fibromyalgia GI Medical History: Gallbladder Disease History: Other Psycho-Social History: Bipolar Female Reproductive Disorders: Other Other Medical History: kidney stones, born with 1 kidney (left only), OVERDOSE - Past Surgical History Past Surgical History: Yes Neuro Surgical History: No Pertinent History Cardiac: No Pertinent History Respiratory: No Pertinent History Gastrointestinal: Bowel Surgery, Cholecystectomy Genitourinary: No Pertinent History Musculoskeletal: No Pertinent History Female Surgical History: Hysterectomy, Section, Tubal Ligation Other Surgical History: skin cancer removed twice, Umbilical hernia repair. ruptured hernia- colostomy and reversal. toe amputations to left foot, digits 2, 3, 4;. toe amputations to rt foot, digits 2, 3 Significant Family History: no pertinent family hx (No family history pertaining to this admission reported) - Female History Hx Last Menstrual Period: UNSURE Hx Now: No - Social History Smoking Status: Current every day smoker How long have you smoked: 20yrs Exposure to second hand smoke: Yes Drug Use: methamphetamines Patient Lives Alone: No - Social Determinants of Health Will the patient participate in the screening: Unable to obtain - Nursing Vital Signs Nursing Vital Signs: Initial Vital Signs Temperature 96.8 F 04/01/24 11:48 Pulse Rate 66 04/01/24 11:48 Respiratory Rate 14 04/01/24 11:48 Blood Pressure 120/81 04/01/24 11:48 O2 Sat by Pulse Oximetry 96 04/01/24 11:48 Pain Scale Pain Intensity 5 - Physical Exam General Appearance: no apparent distress, alert Eye Exam: PERRL/EOMI Ears, Nose, Throat Exam: normal ENT inspection Neck Exam: normal inspection, non-tender, supple, full range of motion Respiratory Exam: normal breath sounds, lungs clear Cardiovascular Exam: regular rate/rhythm, normal heart sounds Gastrointestinal/Abdomen Exam: soft, normal bowel sounds, No tenderness Back Exam: normal inspection Extremity Exam: normal inspection, normal range of motion, pelvis stable Neurologic Exam: other (Sleepy but arousable, moving all 4 extremities, withdraws to pain.) SpO2 Interpretation: normal SpO2: 99 O2 Delivery: Room Air - Course EKG Interpreted by Me: RATE ([id number]), Sinus Rhythm, Left [place] Deviation, NORMAL INTERVALS, Non-specific ST Changes Ordered Tests: Active Orders 24 hr Category Date Time Status Investments Manager STAT Care 04/01/24 12:13 Active Cath [Catheter-[facility] Spangler] STAT Care 04/01/24 12:08 Active EKG-ER Only STAT Care 04/01/24 12:12 Active IV Insertion STAT Care 04/01/24 12:09 Active POCT Glucose Check STAT Care 04/01/24 12:10 Active Pulse Oximetry (ED) STAT Care 04/01/24 12:12 Active CHEST 1 VIEW (PORTABLE) Stat Exams 04/01/24 12:18 Completed HEAD WITHOUT CONTRAST [CT] Stat Exams 04/01/24 12:17 Completed ACETAMINOPHEN Stat Lab 04/01/24 12:10 Completed CBC W DIFF Stat Lab 04/01/24 12:10 Completed CMP Stat Lab 04/01/24 12:10 Completed CULTURE,URINE Stat Lab 04/01/24 12:08 Received ETHYL ALCOHOL Stat Lab 04/01/24 12:10 Completed HCG QUALITATIVE, URINE Stat Lab 04/01/24 12:11 Completed Lactic Acid Stat Lab 04/01/24 12:16 Completed MAGNESIUM Stat Lab 04/01/24 12:10 Completed SALICYLATE Stat Lab 04/01/24 12:10 Completed TROPONIN Q3H Lab 04/01/24 12:10 Completed TROPONIN Q3H Lab 04/01/24 15:30 Ordered TROPONIN Q3H Lab 04/01/24 18:30 Ordered UA W/RFX UR CULTURE Stat Lab 04/01/24 12:08 Completed Urine Triage Profile Stat Lab 04/01/24 12:11 Completed Medication Summary Discontinued Medications Generic Name Dose Route Start Last Admin Trade Name Yehuda PRN Reason Stop Dose Admin Sodium Chloride 1,000 mls @ 999 mls/hr 04/01/24 12:18 04/01/24 13:24 Sodium Chloride 0.9% 1000 Ml IV 04/01/24 13:18 Infused .Q1H1M STA Infusion Sodium Chloride Confirm 04/01/24 12:22 Sodium Chloride 0.9% 1000 Ml Administered 04/01/24 12:23 Dose 1,000 mls @ ud .ROUTE .K-MED ONE Lab/Rad Data: Laboratory Result Diagrams 04/01/24 12:10 04/01/24 12:10 Laboratory Results 04/01/24 04/01/24 04/01/24 Range/Units 12:16 12:11 12:11 WBC (3.98-10.04) x10^3/uL RBC (3.93-5.22) x10^6/uL Hgb (11.2-15.7) g/dL Hct (34.1-44.9) % MCV (79.4-94.8) fL MCH (25.6-32.2) pg MCHC (32.2-35.5) g/dL RDW (11.7-14.4) % Plt Count (182-369) x10^3/uL MPV (9.4-12.3) fL Gran % (34.0-71.1) % Immature Gran % (Auto) (0.001-0.429) % Nucleat RBC Rel Count (0.00-0.2) % Eos # (Auto) (0.04-0.36) x10^3/uL Immature Gran # (Auto) (0.001-0.031) x10^3u/L Absolute Lymphs (auto) (1.18-3.74) x10^3/uL Absolute Monos (auto) (0.24-0.86) x10^3/uL Absolute Nucleated RBC (0.00-0.012) x10^3u/L Lymphocytes % (19.3-51.7) % Monocytes % (4.7-12.5) % Eosinophils % (0.7-5.8) % Basophils % (0.1-1.2) % Absolute Granulocytes (1.56-6.13) x10^3/uL Basophils # (0.01-0.08) x10^3/uL Sodium (135-145) mmol/L Potassium (3.5-5.1) mmol/L Chloride (98-107) mmol/L Carbon Dioxide (22-30) mmol/L Anion Gap (5-15) MEQ/L BUN (7-17) mg/dL Creatinine (0.52-1.04) mg/dL Estimated GFR ML/MIN Glucose (74-106) mg/dL Lactic Acid 0.5 (0.4-2.0) Calcium (8.4-10.2) mg/dL Magnesium (1.6-2.3) mg/dL Total Bilirubin (0.2-1.3) mg/dL AST (14-36) U/L ALT (0-35) U/L Alkaline Phosphatase (38-126) U/L Troponin I (0.000-0.033) ng/mL Serum Total Protein (6.3-8.2) g/dL Albumin (3.5-5.0) g/dL Urine Color (Yellow) Urine Appearance (Clear) Urine pH (4.6-8.0) Ur Specific [place] (1.005-1.030) Urine Protein (Negative) Urine Glucose (UA) (Negative) mg/dL Urine Ketones (Negative) Urine Blood (Negative) Urine Nitrite (Negative) Urine Bilirubin (Negative) Urine Urobilinogen (0.2) mg/dL Ur Leukocyte Esterase (Negative) U Hyaline Cast (Auto) (0-2) /LPF Urine Microscopic RBC (0-5) /HPF Urine Microscopic WBC (0-5) /HPF Ur Epithelial Cells (None Seen) /HPF Urine Bacteria (None Seen) /HPF Urine Culture Reflexed (NO) Urine HCG, Qual NEGATIVE (NEGATIVE) Salicylates (2-20) mg/dL Urine Opiates Level POSITIVE A (NEGATIVE) Ur Methadone NEGATIVE (NEGATIVE) Acetaminophen (10-30) ug/ml Urine Barbiturates NEGATIVE (NEGATIVE) Ur Phencyclidine (PCP) NEGATIVE (NEGATIVE) Urine Amphetamine POSITIVE A (NEGATIVE) U Benzodiazepine Level NEGATIVE (NEGATIVE) Urine Cocaine NEGATIVE (NEGATIVE) Urine Marijuana (THC) NEGATIVE (NEGATIVE) Ethyl Alcohol (0-10) mg/dL 04/01/24 04/01/24 04/01/24 Range/Units 12:10 12:10 12:10 WBC 12.0 H (3.98-10.04) x10^3/uL RBC 3.85 L (3.93-5.22) x10^6/uL Hgb 12.5 (11.2-15.7) g/dL Hct 38.2 (34.1-44.9) % MCV 99.2 H (79.4-94.8) fL MCH 32.5 H (25.6-32.2) pg MCHC 32.7 (32.2-35.5) g/dL RDW 12.7 (11.7-14.4) % Plt Count 387 H (182-369) x10^3/uL MPV 8.9 L (9.4-12.3) fL Gran % 67.0 (34.0-71.1) % Immature Gran % (Auto) 0.4 (0.001-0.429) % Nucleat RBC Rel Count 0.0 (0.00-0.2) % Eos # (Auto) 0.55 H (0.04-0.36) x10^3/uL Immature Gran # (Auto) 0.05 H (0.001-0.031) x10^3u/L Absolute Lymphs (auto) 2.60 (1.18-3.74) x10^3/uL Absolute Monos (auto) 0.72 (0.24-0.86) x10^3/uL Absolute Nucleated RBC 0.00 (0.00-0.012) x10^3u/L Lymphocytes % 21.7 (19.3-51.7) % Monocytes % 6.0 (4.7-12.5) % Eosinophils % 4.6 (0.7-5.8) % Basophils % 0.3 (0.1-1.2) % Absolute Granulocytes 8.03 H (1.56-6.13) x10^3/uL Basophils # 0.03 (0.01-0.08) x10^3/uL Sodium 140 (135-145) mmol/L Potassium 3.9 (3.5-5.1) mmol/L Chloride 110 H (98-107) mmol/L Carbon Dioxide 18 L (22-30) mmol/L Anion Gap 15.0 (5-15) MEQ/L BUN 29 H (7-17) mg/dL Creatinine 0.83 (0.52-1.04) mg/dL Estimated GFR 87.5 ML/MIN Glucose 85 (74-106) mg/dL Lactic Acid (0.4-2.0) Calcium 9.4 (8.4-10.2) mg/dL Magnesium 2.1 (1.6-2.3) mg/dL Total Bilirubin 0.30 (0.2-1.3) mg/dL AST 36 (14-36) U/L ALT 22 (0-35) U/L Alkaline Phosphatase 95 (38-126) U/L Troponin I < 0.012 (0.000-0.033) ng/mL Serum Total Protein 7.4 (6.3-8.2) g/dL Albumin 4.4 (3.5-5.0) g/dL Urine Color (Yellow) Urine Appearance (Clear) Urine pH (4.6-8.0) Ur Specific [place] (1.005-1.030) Urine Protein (Negative) Urine Glucose (UA) (Negative) mg/dL Urine Ketones (Negative) Urine Blood (Negative) Urine Nitrite (Negative) Urine Bilirubin (Negative) Urine Urobilinogen (0.2) mg/dL Ur Leukocyte Esterase (Negative) U Hyaline Cast (Auto) (0-2) /LPF Urine Microscopic RBC (0-5) /HPF Urine Microscopic WBC (0-5) /HPF Ur Epithelial Cells (None Seen) /HPF Urine Bacteria (None Seen) /HPF Urine Culture Reflexed (NO) Urine HCG, Qual (NEGATIVE) Salicylates < 1.0 L (2-20) mg/dL Urine Opiates Level (NEGATIVE) Ur Methadone (NEGATIVE) Acetaminophen 10 (10-30) ug/ml Urine Barbiturates (NEGATIVE) Ur Phencyclidine (PCP) (NEGATIVE) Urine Amphetamine (NEGATIVE) U Benzodiazepine Level (NEGATIVE) Urine Cocaine (NEGATIVE) Urine Marijuana (THC) (NEGATIVE) Ethyl Alcohol < 10 (0-10) mg/dL 04/01/24 Range/Units 12:08 WBC (3.98-10.04) x10^3/uL RBC (3.93-5.22) x10^6/uL Hgb (11.2-15.7) g/dL Hct (34.1-44.9) % MCV (79.4-94.8) fL MCH (25.6-32.2) pg MCHC (32.2-35.5) g/dL RDW (11.7-14.4) % Plt Count (182-369) x10^3/uL MPV (9.4-12.3) fL Gran % (34.0-71.1) % Immature Gran % (Auto) (0.001-0.429) % Nucleat RBC Rel Count (0.00-0.2) % Eos # (Auto) (0.04-0.36) x10^3/uL Immature Gran # (Auto) (0.001-0.031) x10^3u/L Absolute Lymphs (auto) (1.18-3.74) x10^3/uL Absolute Monos (auto) (0.24-0.86) x10^3/uL Absolute Nucleated RBC (0.00-0.012) x10^3u/L Lymphocytes % (19.3-51.7) % Monocytes % (4.7-12.5) % Eosinophils % (0.7-5.8) % Basophils % (0.1-1.2) % Absolute Granulocytes (1.56-6.13) x10^3/uL Basophils # (0.01-0.08) x10^3/uL Sodium (135-145) mmol/L Potassium (3.5-5.1) mmol/L Chloride (98-107) mmol/L Carbon Dioxide (22-30) mmol/L Anion Gap (5-15) MEQ/L BUN (7-17) mg/dL Creatinine (0.52-1.04) mg/dL Estimated GFR ML/MIN Glucose (74-106) mg/dL Lactic Acid (0.4-2.0) Calcium (8.4-10.2) mg/dL Magnesium (1.6-2.3) mg/dL Total Bilirubin (0.2-1.3) mg/dL AST (14-36) U/L ALT (0-35) U/L Alkaline Phosphatase (38-126) U/L Troponin I (0.000-0.033) ng/mL Serum Total Protein (6.3-8.2) g/dL Albumin (3.5-5.0) g/dL Urine Color Yellow (Yellow) Urine Appearance Clear (Clear) Urine pH 6.5 (4.6-8.0) Ur Specific [place] 1.020 (1.005-1.030) Urine Protein Trace A (Negative) Urine Glucose (UA) Negative (Negative) mg/dL Urine Ketones Negative (Negative) Urine Blood Negative (Negative) Urine Nitrite Negative (Negative) Urine Bilirubin Negative (Negative) Urine Urobilinogen 0.2 (0.2) mg/dL Ur Leukocyte Esterase Negative (Negative) U Hyaline Cast (Auto) NONE SEEN (0-2) /LPF Urine Microscopic RBC 0-2 (0-5) /HPF Urine Microscopic WBC 0-2 (0-5) /HPF Ur Epithelial Cells None Seen (None Seen) /HPF Urine Bacteria None Seen (None Seen) /HPF Urine Culture Reflexed NO (NO) Urine HCG, Qual (NEGATIVE) Salicylates (2-20) mg/dL Urine Opiates Level (NEGATIVE) Ur Methadone (NEGATIVE) Acetaminophen (10-30) ug/ml Urine Barbiturates (NEGATIVE) Ur Phencyclidine (PCP) (NEGATIVE) Urine Amphetamine (NEGATIVE) U Benzodiazepine Level (NEGATIVE) Urine Cocaine (NEGATIVE) Urine Marijuana (THC) (NEGATIVE) Ethyl Alcohol (0-10) mg/dL - Progress Progress: improved, re-examined Progress Note: 04/01/24 14:42 49-year-old is evaluated in the ER for possible overdose on Nucynta/Neurontin or methamphetamine abuse. Patient is sleepy but maintaining vitals and responding to painful stimuli. She is given fluids. Gradually her level of consciousness is improved. Poison control is called, recommended 6 to 8 hours of observation or until she is back to her normal. I have obtained CT head which is negative for any acute intracranial findings. EKG is normal sinus rhythm with no acute ischemic changes. Chest x-ray negative. White count of 12, chemistries fairly unremarkable. No UTI but does have urine drug screen positive for amphetamine and opiates. Patient is not back to her baseline. Discussed with Dr. Ward, reviewed history, workup and agreed with observation admission. Shared the r esults of workup with patient and family and plan of admission which they understand and agree. Discussed with : Other Will see patient in: hospital (observation) Counseled pt/family regarding: lab results, diagnosis, rad results Medical Desision Making - Independent Historian Additional History obtained from: Spouse, Fur Farmer/EMT - Discussion of managment Care discussed with:: hospitalist (Dr. Ward) Reviewed:: Test results Agreed on:: Treatment plan, place in obs Will see patient: in hospital - Diagnostic Testing Diagnostic test were ordered, analyzed, and reviewed by me: Yes Radiological Interpretation: Reviewed by me - Risk of complications The pt has a mod risk of morbidity or mortality based on: Need for prescription drug management The pt has a high risk of morbidity or mortality based on: Decision regarding hospitilization or escalation of hosp level of care - Departure Departure Disposition: Observation Clinical Impression: Substance abuse, Altered mental status Condition: Stable Critical Care Time: No Referrals: GASTON CAMPUZANO [Primary Care Provider] - Follow up/PCP as directed
--- NOTE | 2024-04-01 15:58 | PCM.HP ---
History of Present Illness - Chief Complaint Chief Complaint: SUBSTANCE ABUSE, ALTERED MENTAL STATUS Date: 04/01/24 History of Present Illness: is a 49 year old female with a pmhx of depression/anxiety, current every day smoker, bipolar disorder, chronic migraine, fibromyalgia, multiple hospitalizations for overdose and suicide attempts who presented to ED 04/01/24 after being found by her with altered mental status, confusion, and lethargy per ED report. She is A&O x 4 during my interview and responding appropriately. is not present during interview. Patient reports that she is unsure of what brought her here today but has been told she was found unresponsive. She states however that she has been taking Slemp lately as prescribed, with the exception of an extra one every so often. She adamantly states she has not done methamphetamines although UDS positive for amphetamines and opiates. She does admit that she takes her husbands Nucynta at times but did not today. She also states she is not suicidal and did not overdose on medi cations on purpose. Discussion had regarding multiple admissions for overdosing on medications and when asked if patient would like treatment she declines stating she can go to as OP. Upon arrival to ED vitals stable. CT head negative for acute findings. EKG is normal sinus rhythm with no acute ischemic changes. Chest x-ray negative. Lab findings remarkable for leukocytosis with wbc at 12.0 and acidosis with co2 at 18. UDS positive for amphetamines and opiates. IVF bolus given in ED. Poison control has been contacted with recommendations to observe patient for 6-8 hours. They have also requested an additional salicylate level which we will obtain. Additionally psych has been consulted for multiple overdose/substance abuse. - Review of Systems Constitutional: No Symptoms Eyes: No Symptoms Ears, Nose, & Throat: No Symptoms Respiratory: No Symptoms Cardiac: No Symptoms Abdominal/Gastrointestinal: Abdominal Pain Genitourinary Symptoms: No Symptoms Musculoskeletal: No Symptoms Skin: No Symptoms Neurological: No Symptoms Psychological: Drug Abuse, Depression, Other (tardive dyskineisia ) Endocrine: No Symptoms Hematologic/Lymphatic: No Symptoms Immunological/Allergic: No Symptoms Medications & Allergies Home Medications: Home Medication List Dicyclomine HCl 20 mg [Bentyl 20 mg] 20 mg PO QID 08/02/23 [History Confirmed 04/01/24] Aspirin EC 81 mg [Ecotrin 81 mg] 81 mg PO DAILY 08/07/23 [History Confirmed 04/01/24] Duloxetine HCl [Cymbalta] 60 mg PO BID 11/10/23 [History Confirmed 04/01/24] Gabapentin [Neurontin] 600 mg PO QID 11/10/23 [History Confirmed 04/01/24] Benzonatate 200 mg PO BID 04/01/24 [History Confirmed 04/01/24] Hydrocodone/Acetaminophen [Hydrocodone-Acetamin 10-325 mg] 1 tablet PO Q6HPRN PRN 04/01/24 [History Confirmed 04/01/24] Levofloxacin [Levofloxacin 500 MG Tablet] 500 mg PO DAILY 04/01/24 [History Confirmed 04/01/24] Allergies/Adverse Reactions: Allergies Allergy/AdvReac Type Severity Reaction Status Date / Time Sulfa (Sulfonamide Allergy Intermediate Vomiting Verified 01/11/24 13:01 Antibiotics) ketorolac [From Toradol] Allergy Unknown Verified 01/11/24 13:01 bee venom protein (honey bee) Allergy Verified 01/11/24 13:01 methylprednisolone Allergy anger Verified 01/11/24 13:01 [From Solu-Medrol] promethazine [From Phenergan] Allergy Verified 01/11/24 13:01 sumatriptan [From Imitrex] Allergy Verified 01/11/24 13:01 nitrofurantoin AdvReac Verified 01/11/24 13:01 [From Macrobid] tramadol AdvReac Nausea Verified 01/11/24 13:01 flu vaccine Allergy Intermediate Hoarseness Uncoded 01/11/24 13:01 of voice - Past Medical History Past Medical History: Yes Neurological History: Migraines ENT History: No Pertinent History Cardiac History: Peripheral Vascular Disease Respiratory History: No Pertinent History Endocrine Medical History: No Pertinent History Musculoskelatal History: Fibromyalgia GI Medical History: Gallbladder Disease History: Other Pyscho-Social History: Bipolar Reproductive Disorders: Other Comment: kidney stones, born with 1 kidney (left only), OVERDOSE - Female History Are you now?: No - Past Surgical History Past Surgical History: Yes Neuro Surgical History: No Pertinent History Cardiac History: No Pertinent History Respiratory Surgery: No Pertinent History GI Surgical History: Bowel Surgery, Cholecystectomy Genitourinary Surgical Hx: No Pertinent History Musculskeletal Surgical Hx: No Pertinent History Female Surgical History: Hysterectomy, Section, Tubal Ligation Other Surgical History: skin cancer removed twice, Umbilical hernia repair. ruptured hernia- colostomy and reversal. toe amputations to left foot, digits 2, 3, 4;. toe amputations to rt foot, digits 2, 3 Significant Family History: no pertinent family hx (No family history pertaining to this admission reported) - Social History Smoking Status: Current every day smoker How long have you smoked: 13 YEARS Exposure to second hand smoke: Yes Alcohol: None Drug Use: methamphetamines - Social Determinants of Health Will the patient participate in the screening: Yes Do you worry about a steady place to live?: No Do you have any problems with any of the following?: No known problems In the past 12 months,have you had to go without utilities?: No Have you or anyone in your house had to go without enough: No Transportation Issues: No Has anyone in your support network made you feel unsafe?: No Does the patient want assistance with any of the above?: No - Physical Exam Vital Signs: Vital Signs - 24 hr Temp Pulse Resp BP BP Pulse Ox 04/01/24 15:05 98.2 F 74 22 127/85 95 04/01/24 15:04 91 L 04/01/24 14:47 99 04/01/24 14:00 64 18 123/84 99 04/01/24 13:31 132/88 99 04/01/24 13:01 16 141/99 97 04/01/24 12:41 18 144/106 79 L 04/01/24 12:16 96.6 F 04/01/24 12:14 95 04/01/24 12:00 66 18 135/87 96 04/01/24 11:48 96.8 F 66 14 120/81 96 General Appearance: no apparent distress Neurologic Exam: alert, oriented x 3, cooperative, other (tardive dyskineisia) Eye Exam: PERRL/EOMI Ears, Nose, Throat Exam: normal ENT inspection Neck Exam: normal inspection Respiratory Exam: normal breath sounds, lungs clear Cardiovascular Exam: regular rate/rhythm, normal heart sounds Gastrointestinal/Abdomen Exam: soft, normal bowel sounds, tenderness (TTP RLQ/LLQ) Pelvic Exam: not done Rectal Exam: deferred Back Exam: normal inspection Extremity Exam: normal inspection Skin Exam: normal color Results - Labs Lab/Micro Results: Lab Results-Last 24 Hours 04/01/24 04/01/24 04/01/24 Range/Units 12:08 12:10 12:10 WBC 12.0 H (3.98-10.04) x10^3/uL RBC 3.85 L (3.93-5.22) x10^6/uL Hgb 12.5 (11.2-15.7) g/dL Hct 38.2 (34.1-44.9) % MCV 99.2 H (79.4-94.8) fL MCH 32.5 H (25.6-32.2) pg MCHC 32.7 (32.2-35.5) g/dL RDW 12.7 (11.7-14.4) % Plt Count 387 H (182-369) x10^3/uL MPV 8.9 L (9.4-12.3) fL Gran % 67.0 (34.0-71.1) % Immature Gran % (Auto) 0.4 (0.001-0.429) % Nucleat RBC Rel Count 0.0 (0.00-0.2) % Eos # (Auto) 0.55 H (0.04-0.36) x10^3/uL Immature Gran # (Auto) 0.05 H (0.001-0.031) x10^3u/L Absolute Lymphs (auto) 2.60 (1.18-3.74) x10^3/uL Absolute Monos (auto) 0.72 (0.24-0.86) x10^3/uL Absolute Nucleated RBC 0.00 (0.00-0.012) x10^3u/L Lymphocytes % 21.7 (19.3-51.7) % Monocytes % 6.0 (4.7-12.5) % Eosinophils % 4.6 (0.7-5.8) % Basophils % 0.3 (0.1-1.2) % Absolute Granulocytes 8.03 H (1.56-6.13) x10^3/uL Basophils # 0.03 (0.01-0.08) x10^3/uL Sodium 140 (135-145) mmol/L Potassium 3.9 (3.5-5.1) mmol/L Chloride 110 H (98-107) mmol/L Carbon Dioxide 18 L (22-30) mmol/L Anion Gap 15.0 (5-15) MEQ/L BUN 29 H (7-17) mg/dL Creatinine 0.83 (0.52-1.04) mg/dL Estimated GFR 87.5 ML/MIN Glucose 85 (74-106) mg/dL Lactic Acid (0.4-2.0) Calcium 9.4 (8.4-10.2) mg/dL Magnesium 2.1 (1.6-2.3) mg/dL Total Bilirubin 0.30 (0.2-1.3) mg/dL AST 36 (14-36) U/L ALT 22 (0-35) U/L Alkaline Phosphatase 95 (38-126) U/L Troponin I (0.000-0.033) ng/mL Serum Total Protein 7.4 (6.3-8.2) g/dL Albumin 4.4 (3.5-5.0) g/dL Urine Color Yellow (Yellow) Urine Appearance Clear (Clear) Urine pH 6.5 (4.6-8.0) Ur Specific Dwight 1.020 (1.005-1.030) Urine Protein Trace A (Negative) Urine Glucose (UA) Negative (Negative) mg/dL Urine Ketones Negative (Negative) Urine Blood Negative (Negative) Urine Nitrite Negative (Negative) Urine Bilirubin Negative (Negative) Urine Urobilinogen 0.2 (0.2) mg/dL Ur Leukocyte Esterase Negative (Negative) U Hyaline Cast (Auto) NONE SEEN (0-2) /LPF Urine Microscopic RBC 0-2 (0-5) /HPF Urine Microscopic WBC 0-2 (0-5) /HPF Ur Epithelial Cells None Seen (None Seen) /HPF Urine Bacteria None Seen (None Seen) /HPF Urine Culture Reflexed NO (NO) Urine HCG, Qual (NEGATIVE) Salicylates < 1.0 L (2-20) mg/dL Urine Opiates Level (NEGATIVE) Ur Methadone (NEGATIVE) Acetaminophen 10 (10-30) ug/ml Urine Barbiturates (NEGATIVE) Ur Phencyclidine (PCP) (NEGATIVE) Urine Amphetamine (NEGATIVE) U Benzodiazepine Level (NEGATIVE) Urine Cocaine (NEGATIVE) Urine Marijuana (THC) (NEGATIVE) Ethyl Alcohol < 10 (0-10) mg/dL 11/14/24 11/14/24 11/14/24 Range/Units 12:10 12:11 12:11 WBC (3.98-10.04) x10^3/uL RBC (3.93-5.22) x10^6/uL Hgb (11.2-15.7) g/dL Hct (34.1-44.9) % MCV (79.4-94.8) fL MCH (25.6-32.2) pg MCHC (32.2-35.5) g/dL RDW (11.7-14.4) % Plt Count (182-369) x10^3/uL MPV (9.4-12.3) fL Gran % (34.0-71.1) % Immature Gran % (Auto) (0.001-0.429) % Nucleat RBC Rel Count (0.00-0.2) % Eos # (Auto) (0.04-0.36) x10^3/uL Immature Gran # (Auto) (0.001-0.031) x10^3u/L Absolute Lymphs (auto) (1.18-3.74) x10^3/uL Absolute Monos (auto) (0.24-0.86) x10^3/uL Absolute Nucleated RBC (0.00-0.012) x10^3u/L Lymphocytes % (19.3-51.7) % Monocytes % (4.7-12.5) % Eosinophils % (0.7-5.8) % Basophils % (0.1-1.2) % Absolute Granulocytes (1.56-6.13) x10^3/uL Basophils # (0.01-0.08) x10^3/uL Sodium (135-145) mmol/L Potassium (3.5-5.1) mmol/L Chloride (98-107) mmol/L Carbon Dioxide (22-30) mmol/L Anion Gap (5-15) MEQ/L BUN (7-17) mg/dL Creatinine (0.52-1.04) mg/dL Estimated GFR ML/MIN Glucose (74-106) mg/dL Lactic Acid (0.4-2.0) Calcium (8.4-10.2) mg/dL Magnesium (1.6-2.3) mg/dL Total Bilirubin (0.2-1.3) mg/dL AST (14-36) U/L ALT (0-35) U/L Alkaline Phosphatase (38-126) U/L Troponin I < 0.012 (0.000-0.033) ng/mL Serum Total Protein (6.3-8.2) g/dL Albumin (3.5-5.0) g/dL Urine Color (Yellow) Urine Appearance (Clear) Urine pH (4.6-8.0) Ur Specific Dwight (1.005-1.030) Urine Protein (Negative) Urine Glucose (UA) (Negative) mg/dL Urine Ketones (Negative) Urine Blood (Negative) Urine Nitrite (Negative) Urine Bilirubin (Negative) Urine Urobilinogen (0.2) mg/dL Ur Leukocyte Esterase (Negative) U Hyaline Cast (Auto) (0-2) /LPF Urine Microscopic RBC (0-5) /HPF Urine Microscopic WBC (0-5) /HPF Ur Epithelial Cells (None Seen) /HPF Urine Bacteria (None Seen) /HPF Urine Culture Reflexed (NO) Urine HCG, Qual NEGATIVE (NEGATIVE) Salicylates (2-20) mg/dL Urine Opiates Level POSITIVE A (NEGATIVE) Ur Methadone NEGATIVE (NEGATIVE) Acetaminophen (10-30) ug/ml Urine Barbiturates NEGATIVE (NEGATIVE) Ur Phencyclidine (PCP) NEGATIVE (NEGATIVE) Urine Amphetamine POSITIVE A (NEGATIVE) U Benzodiazepine Level NEGATIVE (NEGATIVE) Urine Cocaine NEGATIVE (NEGATIVE) Urine Marijuana (THC) NEGATIVE (NEGATIVE) Ethyl Alcohol (0-10) mg/dL 04/01/24 04/01/24 Range/Units 12:16 14:51 WBC (3.98-10.04) x10^3/uL RBC (3.93-5.22) x10^6/uL Hgb (11.2-15.7) g/dL Hct (34.1-44.9) % MCV (79.4-94.8) fL MCH (25.6-32.2) pg MCHC (32.2-35.5) g/dL RDW (11.7-14.4) % Plt Count (182-369) x10^3/uL MPV (9.4-12.3) fL Gran % (34.0-71.1) % Immature Gran % (Auto) (0.001-0.429) % Nucleat RBC Rel Count (0.00-0.2) % Eos # (Auto) (0.04-0.36) x10^3/uL Immature Gran # (Auto) (0.001-0.031) x10^3u/L Absolute Lymphs (auto) (1.18-3.74) x10^3/uL Absolute Monos (auto) (0.24-0.86) x10^3/uL Absolute Nucleated RBC (0.00-0.012) x10^3u/L Lymphocytes % (19.3-51.7) % Monocytes % (4.7-12.5) % Eosinophils % (0.7-5.8) % Basophils % (0.1-1.2) % Absolute Granulocytes (1.56-6.13) x10^3/uL Basophils # (0.01-0.08) x10^3/uL Sodium (135-145) mmol/L Potassium (3.5-5.1) mmol/L Chloride (98-107) mmol/L Carbon Dioxide (22-30) mmol/L Anion Gap (5-15) MEQ/L BUN (7-17) mg/dL Creatinine (0.52-1.04) mg/dL Estimated GFR ML/MIN Glucose (74-106) mg/dL Lactic Acid 0.5 (0.4-2.0) Calcium (8.4-10.2) mg/dL Magnesium (1.6-2.3) mg/dL Total Bilirubin (0.2-1.3) mg/dL AST (14-36) U/L ALT (0-35) U/L Alkaline Phosphatase (38-126) U/L Troponin I < 0.012 (0.000-0.033) ng/mL Serum Total Protein (6.3-8.2) g/dL Albumin (3.5-5.0) g/dL Urine Color (Yellow) Urine Appearance (Clear) Urine pH (4.6-8.0) Ur Specific Dwight (1.005-1.030) Urine Protein (Negative) Urine Glucose (UA) (Negative) mg/dL Urine Ketones (Negative) Urine Blood (Negative) Urine Nitrite (Negative) Urine Bilirubin (Negative) Urine Urobilinogen (0.2) mg/dL Ur Leukocyte Esterase (Negative) U Hyaline Cast (Auto) (0-2) /LPF Urine Microscopic RBC (0-5) /HPF Urine Microscopic WBC (0-5) /HPF Ur Epithelial Cells (None Seen) /HPF Urine Bacteria (None Seen) /HPF Urine Culture Reflexed (NO) Urine HCG, Qual (NEGATIVE) Salicylates (2-20) mg/dL Urine Opiates Level (NEGATIVE) Ur Methadone (NEGATIVE) Acetaminophen (10-30) ug/ml Urine Barbiturates (NEGATIVE) Ur Phencyclidine (PCP) (NEGATIVE) Urine Amphetamine (NEGATIVE) U Benzodiazepine Level (NEGATIVE) Urine Cocaine (NEGATIVE) Urine Marijuana (THC) (NEGATIVE) Ethyl Alcohol (0-10) mg/dL Accuchecks Date 04/01/24 Time 12:05 - Radiology Impressions Radiology Exams & Impressions: Radiology Procedures Category Date Time Status CHEST 1 VIEW (PORTABLE) Stat Exams 04/01/24 12:18 Completed HEAD WITHOUT CONTRAST [CT] Stat Exams 04/01/24 12:17 Completed - Other Procedures and Tests Respiratory Therapy 04/01/24 15:04 Respiratory Therapy Consult ONCE 04/01/24 15:18 Smoking Cessation Education ONCE Assessment/Plan (1) Overdose Current Visit: Yes Status: Acute Assessment & Plan: -Narcotic overdose -possibly Nucynta/Slemp -Narcan by EMS -Patient A&O x 4 -UDS positive for amphetamines/opiates -Pysch consult for substance abuse -Denies suicidal ideation/homicidal ideation -Poison control advised 6-8 hour observation -Hold home medications for now until poison control advises -CT head reviewed with no acute findings Code(s): T50.901A - POISONING BY UNSP DRUG/MEDS/BIOL SUBST, ACCIDENTAL, INIT (2) Leukocytosis Current Visit: Yes Status: Acute Assessment & Plan: -Most likely reactive -UA reviewed and negative -CXR reviewed with no acute findings -trend Code(s): D72.829 - ELEVATED WHITE BLOOD CELL COUNT, UNSPECIFIED (3) Altered mental status Current Visit: Yes Status: Acute Assessment & Plan: -2/2 to overdose - see above Code(s): R41.82 - ALTERED MENTAL STATUS, UNSPECIFIED (4) Substance abuse Current Visit: Yes Status: Acute Assessment & Plan: -Psych consult - patient with multiple admission for overdose Code(s): F19.10 - OTHER PSYCHOACTIVE SUBSTANCE ABUSE, UNCOMPLICATED (5) Bipolar II disorder major depressive with atypical features Current Visit: No Status: Acute Assessment & Plan: -hold home medications for now until poison control advises it is safe to resume Code(s): F31.81 - BIPOLAR II DISORDER (6) Metabolic acidosis Current Visit: Yes Status: Acute Assessment & Plan: -Salicylate levels are negative, and no other signs of salicylate toxicity - will repeat level per poison control recommendations -oral bicarb Code(s): E87.20 - ACIDOSIS, UNSPECIFIED Telemedicine Encounter - Telemedicine Encounter Telemedicine Encounter: "The entirety of this encounter was performed via Telemedicine" This visit was performed using real-time audio and video connection between my location and thepatients locationwith the assistance of a surrogateat the patients location. Written or verbal consent was obtained from the patient/guardian to perform this [facility]. Any patient questions regarding the telemedicine interaction were answered.
[2024-04-01] MEDS: NICODERM CQ 14 MG TOP SCH (16:23)
[2024-04-01] MEDS: Zofran 4 MG/2 ML VIAL IV PRN (16:23)
[2024-04-01 18:28] LABS: ACETAMINOPHEN < 10 ug/ml (10-30); SALICYLATE < 1.0 mg/dL (2-20)
[2024-04-01] MEDS: SODIUM BICARBONATE PO SCH (21:38)
[2024-04-01 23:25] VITALS: BP 121/69; PULSE 65; RESP 18; TEMP 97.9; O2SAT 97
--- NOTE | 2024-04-02 14:21 | PCM.DS ---
Discharge Summary Date of Admission: 04/01/24 15:00 Date of Discharge: 04/01/24 Admitting Physician: CHING FLORIAN MD Consults: Consults on Case 04/01/24 15:50 Psychiatric Consult STAT Primary Care Provider: GASTON CAMPUZANO Allergies Allergies Sulfa (Sulfonamide Antibiotics) Allergy (Intermediate, Verified 01/11/24 13:01) Vomiting ketorolac [From Toradol] Allergy (Unknown, Verified 01/11/24 13:01) bee venom protein (honey bee) Allergy (Verified 01/11/24 13:01) methylprednisolone [From Solu-Medrol] Allergy (Verified 01/11/24 13:01) anger can take oral steroids, IV steroids she cannot take -- states she gets "roid rage" promethazine [From Phenergan] Allergy (Verified 01/11/24 13:01) sumatriptan [From Imitrex] Allergy (Verified 01/11/24 13:01) nitrofurantoin [From Macrobid] Adverse Reaction (Verified 01/11/24 13:01) tramadol Adverse Reaction (Verified 01/11/24 13:01) Nausea flu vaccine Allergy (Intermediate, Uncoded 01/11/24 13:01) Hoarseness of voice Hospital Summary - Hospital Course Hospital Course: is a 49 year old female with a pmhx of depression/anxiety, current every day smoker, bipolar disorder, chronic migraine, fibromyalgia, multiple hospitalizations for overdose and suicide attempts who presented to ED 04/01/24 after being found by her with altered mental status, confusion, and lethargy per ED report. She is A&O x 4 during my interview and responding appropriately. is not present during interview. Patient reports that she is unsure of what brought her here today but has been told she was found unresponsive. She states however that she has been taking Noble lately as prescribed, with the exception of an extra one every so often. She adamantly states she has not done methamphetamines although UDS positive for amphetamines and opiates. She does admit that she takes her husbands Nucynta at times but did not today. She also states she is not suicidal and did not overdose on medications on purpose. Discussion had regarding multiple admissions for overdosing on medications and when asked if patient would like treatment she declines stating she can go to [facility] as OP. Upon arrival to ED vitals stable. CT head negative for acute findings. EKG is normal sinus rhythm with no acute ischemic changes. Chest x-ray negative. Lab findings remarkable for leukocytosis with wbc at 12.0 and acidosis with co2 at 18. UDS positive for amphetamines and opiates. IVF bolus given in ED. Poison control has been contacted with recommendations to observe patient for 6-8 hours. They have also requested an additional salicylate level which we will obtain. Additionally psych has been consulted for multiple overdose/substance abuse. [facility] consulted with recommendations for ED with transfer to [facility] due to multiple admissions for drug overdose. Transfer completed via trans care to [facility]. Discharge Note Latest Assessment & Plan (1) Overdose Current Visit: Yes Status: Acute Assessment & Plan: -Narcotic overdose -possibly Nucynta/Noble -Narcan by EMS -Patient A&O x 4 -UDS positive for amphetamines/opiates -Pysch consult for substance abuse -Denies suicidal ideation/homicidal ideation -Poison control advised 6-8 hour observation -Hold home medications for now until poison control advises -CT head reviewed with no acute findings Code(s): T50.901A - POISONING BY UNSP DRUG/MEDS/BIOL SUBST, ACCIDENTAL, INIT (2) Leukocytosis Current Visit: Yes Status: Acute Assessment & Plan: -Most likely reactive -UA reviewed and negative -CXR reviewed with no acute findings -trend Code(s): D72.829 - ELEVATED WHITE BLOOD CELL COUNT, UNSPECIFIED (3) Altered mental status Current Visit: Yes Status: Acute Assessment & Plan: -2/2 to overdose - see above Code(s): R41.82 - ALTERED MENTAL STATUS, UNSPECIFIED (4) Substance abuse Current Visit: Yes Status: Acute Assessment & Plan: -Psych consult - patient with multiple admission for overdose Code(s): F19.10 - OTHER PSYCHOACTIVE SUBSTANCE ABUSE, UNCOMPLICATED (5) Bipolar II disorder major depressive with atypical features Current Visit: No Status: Acute Assessment & Plan: -hold home medications for now until poison control advises it is safe to resume Code(s): F31.81 - BIPOLAR II DISORDER (6) Metabolic acidosis Current Visit: Yes Status: Acute Assessment & Plan: -Salicylate levels are negative, and no other signs of salicylate toxicity - will repeat level per poison control recommendations -oral bicarb Code(s): E87.20 - ACIDOSIS, UNSPECIFIED Telemedicine Encounter I spent 35 minutes [id number] with the patient on the day of discharge performing discharge exam, discussing hospital stay and discharge instructions with patient and caregivers, preparation of discharge records, prescriptions & referral forms and addressing any questions/concerns the patient had as documented above. - Vitals & Intake/Output Vital Signs: Vital Signs Temperature 97.9 F 04/01/24 23:25 Pulse Rate 65 04/01/24 23:25 Respiratory Rate 18 04/01/24 23:25 Blood Pressure 121/69 04/01/24 23:25 O2 Sat by Pulse Oximetry 97 04/01/24 23:25 Intake & Output: Intake & Output 03/31/24 04/01/24 04/02/24 04/03/24 11:59 11:59 11:59 11:59 Intake Total 1920 Output Total 900 Balance 1020 Weight 70 kg 69.5 kg - Lab Result Diagrams: 04/01/24 12:10 04/01/24 12:10 Lab Results-Last 24 Hrs: Lab Results-Last 24 Hours 04/01/24 04/01/24 04/01/24 Range/Units 14:51 16:10 18:13 Troponin I < 0.012 < 0.012 (0.000-0.033) ng/mL Salicylates 2.2 (2-20) mg/dL Acetaminophen (10-30) ug/ml 04/01/24 Range/Units 18:13 Troponin I (0.000-0.033) ng/mL Salicylates < 1.0 L (2-20) mg/dL Acetaminophen < 10 L (10-30) ug/ml Micro Results-Entire Visit: Microbiology 04/01/24 12:08 Urine Culture - Preliminary Catherized NO GROWTH TO DATE - Radiology Exams Ordered Rad Exams-Entire Visit: Radiology Procedures Category Date Time Status CHEST 1 VIEW (PORTABLE) Stat Exams 04/01/24 12:18 Completed HEAD WITHOUT CONTRAST [CT] Stat Exams 04/01/24 12:17 Completed - Procedures and Test Procedures and Tests throughout Hospitalization: Therapy Orders & Screens 04/01/24 15:04 Respiratory Therapy Consult ONCE Comment: Reason For Exam: 04/01/24 15:18 Smoking Cessation Education ONCE Comment: Diagnosis: SUBSTANCE ABUSE, ALTERED MENTAL STATUS Smoking Status: Current every day smoker How long have you smoked: 13 YEARS Have you smoked in the past 12 months: Yes Approximately how many cigarettes per day: 1 ppd Do you dip or chew tobacco: No If,Former Smoker,when did you quit: UNSURE Discharge Exam General Appearance: no apparent distress Neurologic Exam: alert, oriented x 3, cooperative, other (tardive dyskinesia) Eye Exam: PERRL Ears, Nose, Throat Exam: normal ENT inspection Neck Exam: normal inspection Respiratory Exam: crackles/rales Cardiovascular Exam: regular rate/rhythm, normal heart sounds Gastrointestinal/Abdomen Exam: soft, normal bowel sounds Pelvic Exam: deferred Rectal Exam: deferred Back Exam: normal inspection Extremity Exam: normal inspection Final Diagnosis/Problem List - Final Discharge Diagnosis/Problem (1) Overdose Status: Acute Code(s): T50.901A - POISONING BY UNSP DRUG/MEDS/BIOL SUBST, ACCI DENTAL, INIT (2) Leukocytosis Status: Acute Code(s): D72.829 - ELEVATED WHITE BLOOD CELL COUNT, UNSPECIFIED (3) Altered mental status Status: Acute Code(s): R41.82 - ALTERED MENTAL STATUS, UNSPECIFIED (4) Substance abuse Status: Acute Code(s): F19.10 - OTHER PSYCHOACTIVE SUBSTANCE ABUSE, UNCO MPLICATED (5) Bipolar II disorder major depressive with atypical features Status: Acute Code(s): F31.81 - BIPOLAR II DISORDER (6) Metabolic acidosis Status: Acute Code(s): E87.20 - ACIDOSIS, UNSPECIFIED - Discharge Disposition: XFER OTHER Condition: Stable Prescriptions: Continue Levofloxacin [Levofloxacin 500 MG Tablet] 500 mg PO DAILY Discontinued Dicyclomine HCl 20 mg [Bentyl 20 mg] 20 mg PO QID Aspirin EC 81 mg [Ecotrin 81 mg] 81 mg PO DAILY Duloxetine HCl [Cymbalta] 60 mg PO BID Gabapentin [Neurontin] 600 mg PO QID Benzonatate 200 mg PO BID Hydrocodone/Acetaminophen [Hydrocodone-Acetamin 10-325 mg] 1 tablet PO Q6HPRN PRN PRN Reason: Pain Additional Instructions: Med resumption per poison control Follow up with: GASTON CAMPUZANO [Primary Care Provider] -
== END 2024-04-02 00:32 ==
LOC: ED 11:47 → MED SURG 15:00
PROVIDERS: ADMIT Internal Medicine; ATTEND Internal Medicine
DX: T39.1X3A Poisoning by 4-Aminophenol derivatives, assault, initial encounter (principal); F41.9 Anxiety disorder, unspecified; F17.200 Nicotine dependence, unspecified, uncomplicated; D72.829 Elevated white blood cell count, unspecified; R41.82 Altered mental status, unspecified; F19.10 Other psychoactive substance abuse, uncomplicated; F31.81 Bipolar II disorder; E87.20 Acidosis, unspecified; Z79.899 Other long term (current) drug therapy
CPT/HCPCS: 36000; 36415; 51702; 70450; 71045; 80053; 80143; 80179; 80307; 81001; 81025; 82077; 83605; 83735; 84484; 85025; 87086; 93005; 93041; 93268; 94760; 94762; 96360; 99285; G0378; Q3014; J2405; A9270-GY

== ENCOUNTER 2024-04-08 23:38 | Emergency (ER) | payer BC, OTHER ==
--- NOTE | 2024-04-08 23:42 | ERPHSYRPT ---
- History of Present Illness Time Seen by Provider: 04/08/24 23:40 Source: patient, EMS, police Exam Limitations: no limitations Physician History: 49-year-old female with history of anxiety/depression, chronic pain, recurrent history of overdose who was admitted here last week for overdose, was later on sent to [facility], discharged this afternoon and was found unresponsive at home by . EMS/PD arrival patient was not responding, was given Narcan with improve mental status. Patient on presentation in the ER is awake alert but not fully oriented. Moving all 4 extremities. As per report patient possibly overdosed on 's synthetic morphine. Although patient reports not taking any Nucynta but some extra hydrocodone's which she takes for her back pain. Allergies/Adverse Reactions: Sulfa (Sulfonamide Antibiotics) Allergy (Intermediate, Verified 01/11/24 13:01) Vomiting ketorolac [From Toradol] Allergy (Unknown, Verified 01/11/24 13:01) bee venom protein (honey bee) Allergy (Verified 01/11/24 13:01) methylprednisolone [From Solu-Medrol] Allergy (Verified 01/11/24 13:01) anger can take oral steroids, IV steroids she cannot take -- states she gets "roid rage" promethazine [From Phenergan] Allergy (Verified 01/11/24 13:01) sumatriptan [From Imitrex] Allergy (Verified 01/11/24 13:01) nitrofurantoin [From Macrobid] Adverse Reaction (Verified 01/11/24 13:01) tramadol Adverse Reaction (Verified 01/11/24 13:01) Nausea flu vaccine Allergy (Intermediate, Uncoded 01/11/24 13:01) Hoarseness of voice Home Medications: Levofloxacin [Levofloxacin 500 MG Tablet] 500 mg PO DAILY 04/01/24 [History] Hx Tetanus, Diphtheria Vaccination/Date Given: Yes Hx Influenza Vaccination/Date Given: No Hx Pneumococcal Vaccination/Date Given: No Travel Risk - Emerging Infectious Disease Are you exhibiting symptoms associated with any current EIDs: No Symptoms: Cough: New Onset, Shortness of Breath, Other (Please Comment) Comment: chills - Past Medical History Pertinent Past Medical History: Yes Neurological History: Migraines ENT History: No Pertinent History Cardiac History: Peripheral Vascular Disease Respiratory History: No Pertinent History Endocrine Medical History: No Pertinent History Musculoskeletal History: Fibromyalgia GI Medical History: Gallbladder Disease History: Other Psycho-Social History: Bipolar Female Reproductive Disorders: Other Other Medical History: kidney stones, born with 1 kidney (left only), OVERDOSE - Past Surgical History Past Surgical History: Yes Neuro Surgical History: No Pertinent History Cardiac: No Pertinent History Respiratory: No Pertinent History Gastrointestinal: Bowel Surgery, Cholecystectomy Genitourinary: No Pertinent History Musculoskeletal: No Pertinent History Female Surgical History: Hysterectomy, Section, Tubal Ligation Other Surgical History: skin cancer removed twice, Umbilical hernia repair. ruptured hernia- colostomy and reversal. toe amputations to left foot, digits 2, 3, 4;. toe amputations to rt foot, digits 2, 3 Significant Family History: no pertinent family hx (No family history pertaining to this admission reported) - Female History Hx Last Menstrual Period: UNSURE - Social History Smoking Status: Current every day smoker How long have you smoked: 13 YEARS Exposure to second hand smoke: Yes Drug Use: methamphetamines Patient Lives Alone: No - Social Determinants of Health Will the patient participate in the screening: Yes Do you worry about a steady place to live?: No In the past 12 months,have you had to go without utilities?: No Transportation Issues: No Has anyone in your support network made you feel unsafe?: No Have you or anyone in your house had to go without enough: No - Review of Systems Constitutional: Fatigue, Lethargy Ears, Nose, & Throat: No Symptoms Respiratory: No Symptoms Cardiac: No Symptoms Abdominal/Gastrointestinal: No Symptoms Genitourinary Symptoms: No Symptoms Musculoskeletal: Arthralgias Skin: No Symptoms Hematologic/Lymphatic: No Symptoms - Nursing Vital Signs Nursing Vital Signs: Initial Vital Signs Temperature 96.8 F 04/08/24 23:39 Pulse Rate 78 04/08/24 23:39 Respiratory Rate 20 04/08/24 23:39 Blood Pressure 147/99 04/08/24 23:39 O2 Sat by Pulse Oximetry 99 04/08/24 23:39 Pain Scale Pain Intensity 0 - Physical Exam General Appearance: no apparent distress, alert Eyes, Ears, Nose, Throat Exam: normal ENT inspection Neck Exam: normal inspection, non-tender, supple, full range of motion Respiratory Exam: normal breath sounds, lungs clear Cardiovascular Exam: regular rate/rhythm, normal heart sounds Gastrointestinal/Abdominal Exam: soft, normal bowel sounds, No tenderness Extremities Exam: normal inspection, normal range of motion Neurological Exam: alert, 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, No normal mood/affect, No oriented x 3 Appearance: appropriate appearance, neat, No appropriate insight Behavior/Eye Contact/Speech: alert & cooperative, good eye contact, normal speech Thoughts/Hallucinations: no apparent hallucination, No normal thought pattern Skin Exam: normal color SpO2 Interpretation: normal SpO2: 96 O2 Delivery: Room Air - Course EKG Interpreted by Me: RATE (79), Sinus Rhythm, Left Lapine Deviation, NORMAL INTERVALS, Non-specific ST Changes Ordered Tests: Active Orders 24 hr Category Date Time Status EKG-ER Only STAT Care 04/08/24 23:40 Active IV Insertion STAT Care 04/08/24 23:40 Active CHEST 1 VIEW (PORTABLE) Stat Exams 04/08/24 23:59 Taken ACETAMINOPHEN Stat Lab 04/08/24 23:57 Completed CBC W DIFF Stat Lab 04/08/24 23:57 Completed CMP Stat Lab 04/08/24 23:57 Completed ETHYL ALCOHOL Stat Lab 04/08/24 23:57 Completed Lactic Acid Stat Lab 04/08/24 23:40 Completed MAG [MAGNESIUM] Stat Lab 04/08/24 23:57 Completed SALICYLATE Stat Lab 04/08/24 23:57 Completed TROPONIN Q3H Lab 04/08/24 23:57 Completed UA W/RFX UR CULTURE Stat Lab 04/09/24 00:03 Completed Urine Triage Profile Stat Lab 04/09/24 Ordered Medication Summary Discontinued Medications Generic Name Dose Route Start Last Admin Trade Name Freq PRN Reason Stop Dose Admin Sodium Chloride 1,000 mls @ 999 mls/hr 04/08/24 23:40 04/09/24 04:24 Sodium Chloride 0.9% 1000 Ml IV 04/09/24 00:40 Infused .Q1H1M STA Infusion Sodium Chloride Confirm 04/08/24 23:49 Sodium Chloride 0.9% 1000 Ml Administered 04/08/24 23:50 Dose 1,000 mls @ ud .ROUTE .STK-MED ONE Lab/Rad Data: Laboratory Result Diagrams 04/08/24 23:57 04/08/24 23:57 Laboratory Results 04/09/24 04/08/24 04/08/24 Range/Units 00:03 23:57 23:57 WBC (3.98-10.04) x10^3/uL RBC (3.93-5.22) x10^6/uL Hgb (11.2-15.7) g/dL Hct (34.1-44.9) % MCV (79.4-94.8) fL MCH (25.6-32.2) pg MCHC (32.2-35.5) g/dL RDW (11.7-14.4) % Plt Count (182-369) x10^3/uL MPV (9.4-12.3) fL Gran % (34.0-71.1) % Immature Gran % (Auto) (0.001-0.429) % Nucleat RBC Rel Count (0.00-0.2) % Eos # (Auto) (0.04-0.36) x10^3/uL Immature Gran # (Auto) (0.001-0.031) x10^3u/L Absolute Lymphs (auto) (1.18-3.74) x10^3/uL Absolute Monos (auto) (0.24-0.86) x10^3/uL Absolute Nucleated RBC (0.00-0.012) x10^3u/L Lymphocytes % (19.3-51.7) % Monocytes % (4.7-12.5) % Eosinophils % (0.7-5.8) % Basophils % (0.1-1.2) % Absolute Granulocytes (1.56-6.13) x10^3/uL Basophils # (0.01-0.08) x10^3/uL Sodium (135-145) mmol/L Potassium (3.5-5.1) mmol/L Chloride (98-107) mmol/L Carbon Dioxide (22-30) mmol/L Anion Gap (5-15) MEQ/L BUN (7-17) mg/dL Creatinine (0.52-1.04) mg/dL Estimated GFR ML/MIN Glucose (74-106) mg/dL Lactic Acid (0.4-2.0) Calcium (8.4-10.2) mg/dL Magnesium 2.2 (1.6-2.3) mg/dL Total Bilirubin (0.2-1.3) mg/dL AST (14-36) U/L ALT (0-35) U/L Alkaline Phosphatase (38-126) U/L Troponin I < 0.012 (0.000-0.033) ng/mL Serum Total Protein (6.3-8.2) g/dL Albumin (3.5-5.0) g/dL Urine Color Yellow (Yellow) Urine Appearance Clear (Clear) Urine pH 7.0 (4.6-8.0) Ur Specific [place] 1.020 (1.005-1.030) Urine Protein Trace A (Negative) Urine Glucose (UA) Negative (Negative) mg/dL Urine Ketones Negative (Negative) Urine Blood Negative (Negative) Urine Nitrite Negative (Negative) Urine Bilirubin Negative (Negative) Urine Urobilinogen 0.2 (0.2) mg/dL Ur Leukocyte Esterase Negative (Negative) U Hyaline Cast (Auto) 3-5 A (0-2) /LPF Urine Microscopic RBC 0-2 (0-5) /HPF Urine Microscopic WBC 0-2 (0-5) /HPF Ur Epithelial Cells None Seen (None Seen) /HPF Urine Bacteria None Seen (None Seen) /HPF Urine Culture Reflexed NO (NO) Salicylates (2-20) mg/dL Acetaminophen (10-30) ug/ml Ethyl Alcohol (0-10) mg/dL 04/08/24 04/08/24 04/08/24 Range/Units 23:57 23:57 23:40 WBC 10.7 H (3.98-10.04) x10^3/uL RBC 4.46 (3.93-5.22) x10^6/uL Hgb 14.3 (11.2-15.7) g/dL Hct 45.3 H (34.1-44.9) % MCV 101.6 H (79.4-94.8) fL MCH 32.1 (25.6-32.2) pg MCHC 31.6 L (32.2-35.5) g/dL RDW 13.0 (11.7-14.4) % Plt Count 433 H (182-369) x10^3/uL MPV 8.5 L (9.4-12.3) fL Gran % 59.5 (34.0-71.1) % Immature Gran % (Auto) 0.5 H (0.001-0.429) % Nucleat RBC Rel Count 0.0 (0.00-0.2) % Eos # (Auto) 0.84 H (0.04-0.36) x10^3/uL Immature Gran # (Auto) 0.05 H (0.001-0.031) x10^3u/L Absolute Lymphs (auto) 2.69 (1.18-3.74) x10^3/uL Absolute Monos (auto) 0.71 (0.24-0.86) x10^3/uL Absolute Nucleated RBC 0.00 (0.00-0.012) x10^3u/L Lymphocytes % 25.2 (19.3-51.7) % Monocytes % 6.6 (4.7-12.5) % Eosinophils % 7.9 H (0.7-5.8) % Basophils % 0.3 (0.1-1.2) % Absolute Granulocytes 6.37 H (1.56-6.13) x10^3/uL Basophils # 0.03 (0.01-0.08) x10^3/uL Sodium 140 (135-145) mmol/L Potassium 4.6 (3.5-5.1) mmol/L Chloride 102 (98-107) mmol/L Carbon Dioxide 28 (22-30) mmol/L Anion Gap 15.0 (5-15) MEQ/L BUN 24 H (7-17) mg/dL Creatinine 0.97 (0.52-1.04) mg/dL Estimated GFR 72.5 ML/MIN Glucose 94 (74-106) mg/dL Lactic Acid 1.7 (0.4-2.0) Calcium 9.2 (8.4-10.2) mg/dL Magnesium (1.6-2.3) mg/dL Total Bilirubin 0.30 (0.2-1.3) mg/dL AST 45 H (14-36) U/L ALT 40 H (0-35) U/L Alkaline Phosphatase 101 (38-126) U/L Troponin I (0.000-0.033) ng/mL Serum Total Protein 7.9 (6.3-8.2) g/dL Albumin 4.7 (3.5-5.0) g/dL Urine Color (Yellow) Urine Appearance (Clear) Urine pH (4.6-8.0) Ur Specific [place] (1.005-1.030) Urine Protein (Negative) Urine Glucose (UA) (Negative) mg/dL Urine Ketones (Negative) Urine Blood (Negative) Urine Nitrite (Negative) Urine Bilirubin (Negative) Urine Urobilinogen (0.2) mg/dL Ur Leukocyte Esterase (Negative) U Hyaline Cast (Auto) (0-2) /LPF Urine Microscopic RBC (0-5) /HPF Urine Microscopic WBC (0-5) /HPF Ur Epithelial Cells (None Seen) /HPF Urine Bacteria (None Seen) /HPF Urine Culture Reflexed (NO) Salicylates < 1.0 L (2-20) mg/dL Acetaminophen < 10 L (10-30) ug/ml Ethyl Alcohol < 10 (0-10) mg/dL - Progress Progress: improved Progress Note: 04/09/24 00:32 Patient is awake alert and almost back to her baseline on reevaluation. EKG is sinus rhythm with no ST elevations. Baseline workup is ordered. We have called poison control recommended 4-hour observation before patient can be medically cleared. Patient reports she took extra dosage of hydrocodone because she was having a bad day and did not want to kill herself. She was ED by PD, once clear patient would be sent for behavioral health evaluation. 04/09/24 06:48 Patient is medically cleared and has been accepted by Dr. Guo at [facility]. Counseled pt/family regarding: diagnosis, need for follow-up, rad results Medical Desision Making - Independent Historian Additional History obtained from: Spouse, EMS, Manager Assembly/EMT - Diagnostic Testing Diagnostic test were ordered, analyzed, and reviewed by me: Yes Radiological Interpretation: Interpreted by me, Reviewed by me - Risk of complications The pt has a mod risk of morbidity or mortality based on: Need for prescription drug management - Departure Departure Disposition: Transfer Clinical Impression: Overdose Qualifiers: Encounter type: initial encounter Injury intent: undetermined intent Qualified Code(s): T50.904A - Poisoning by unspecified drugs, medicaments and biological substances, undetermined, initial encounter Condition: Stable Critical Care Time: No Referrals: GASTON CAMPUZANO [Primary Care Provider] - Follow up/PCP as directed
[2024-04-08] MEDS: Sodium Chloride 0.9% 1000 ML 1,000 ML IV STA (23:49)
[2024-04-08] MEDS ORDERED: Sodium Chloride 0.9% 1000 ML 1,000 ML ONE (23:49)
[2024-04-09] VITALS: TEMP 96.8
[2024-04-09] LABS: Absolute Neutrophil Ct (ANC) 6.37 x10^3/uL (1.56-6.13); BASOPHIL % 0.3 % (0.1-1.2); Basophil (Absolute #) 0.03 x10^3/uL (0.01-0.08); Eosinophil % 7.9 % (0.7-5.8); Eosinophil (Absolute #) 0.84 x10^3/uL (0.04-0.36); Hematocrit 45.3 % (34.1-44.9); Hemoglobin 14.3 g/dL (11.2-15.7); IMMATURE GRAN # 0.05 x10^3u/L (0.001-0.031); IMMATURE GRAN % 0.5 % (0.001-0.429); Lymphocyte (Absolute #) 2.69 x10^3/uL (1.18-3.74); Lymphocytes % 25.2 % (19.3-51.7); Mean Cell Volume 101.6 fL (79.4-94.8); Mean Corpuscular Hemoglobin 32.1 pg (25.6-32.2); Mean Corpuscular Hgb Concent. 31.6 g/dL (32.2-35.5); Mean Platelet Volume 8.5 fL (9.4-12.3); Monocyte (Absolute #) 0.71 x10^3/uL (0.24-0.86); Monocytes % 6.6 % (4.7-12.5); Neutrophil % 59.5 % (34.0-71.1); Platelet Count 433 x10^3/uL (182-369); Red Blood Count 4.46 x10^6/uL (3.93-5.22); White Blood Count 10.7 x10^3/uL (3.98-10.04)
[2024-04-09 00:14] LABS: ACETAMINOPHEN < 10 ug/ml (10-30); ALBUMIN 4.7 g/dL (3.5-5.0); ALKALINE PHOSPHATASE 101 U/L (38-126); BLOOD UREA NITROGEN 24 mg/dL (7-17); CHLORIDE 102 mmol/L (98-107); Calcium 9.2 mg/dL (8.4-10.2); Carbon Dioxide 28 mmol/L (22-30); Creatinine 1 0.97 mg/dL (0.52-1.04); EST GLOMERULAR FILTRATION RATE 72.5 ML/MIN; ETHYL ALCOHOL < 10 mg/dL (0-10); Glucose 94 mg/dL (74-106); Potassium 4.6 mmol/L (3.5-5.1); SALICYLATE < 1.0 mg/dL (2-20); SGOT/AST 45 U/L (14-36); SGPT/ALT 40 U/L (0-35); SODIUM 140 mmol/L (135-145); Total Protein 7.9 g/dL (6.3-8.2)
[2024-04-09 03:06] LABS: Appearance Clear (Clear); Bilirubin Negative (Negative); Blood Negative (Negative); Ketones Negative (Negative); Leukocyte Esterase Negative (Negative); Nitrite Negative (Negative); Protein,Urine Dip Trace (Negative); Urobilinogen 0.2 mg/dL (0.2)
[2024-04-09 03:07] LABS: Bacteria None Seen /HPF (None Seen); Epithelial Cells None Seen /HPF (None Seen); Glucose, Urine Negative (Negative); RBC 0-2 /HPF (0-5); WBC 0-2 /HPF (0-5)
[2024-04-09 07:24] LABS: Amphetamine,Urine NEGATIVE (NEGATIVE); Barbiturate,Urine NEGATIVE (NEGATIVE); Benzodiazepine,Urine NEGATIVE (NEGATIVE); Cocaine,Urine NEGATIVE (NEGATIVE); Methadone,Urine NEGATIVE (NEGATIVE); Opiate,Urine POSITIVE (NEGATIVE); PCP,Urine NEGATIVE (NEGATIVE); THC,Urine NEGATIVE (NEGATIVE)
--- NOTE | 2024-04-09 09:31 | XRAY ---
Indication: Overdose. Comparison: April 01, 2024 Portable chest again demonstrates normal heart and lungs with a few incidental right hilar calcified nodes. Bony thorax intact. No new/acute findings.
[2024-04-09] MEDS ORDERED: TYLENOL 325 MG ONE (10:15)
[2024-04-09] MEDS: TYLENOL 325 MG PO ONE (10:15)
[2024-04-09 10:36] VITALS: BP 96/65; PULSE 68; RESP 16; O2SAT 98
== END 2024-04-09 10:50 | disposition short-term general hospital (02) ==
LOC: ED 23:38
DX: T50.904A Poisoning by unspecified drugs, medicaments and biological substances, undetermined, initial encounter (principal); R41.82 Altered mental status, unspecified; Z79.899 Other long term (current) drug therapy; Z72.0 Tobacco use
CPT/HCPCS: 36415; 71045; 80053; 80143; 80179; 80307; 81001; 82077; 83605; 83735; 84484; 85025; 93005; 96360; 99285; A9270-GY

== ENCOUNTER 2024-06-02 11:32 | Emergency (ER) | payer BC, OTHER ==
--- NOTE | 2024-06-02 11:35 | ERPHSYRPT ---
- History of Present Illness Time Seen by Provider: 06/02/24 11:35 Source: patient, EMS, old records Exam Limitations: clinical condition Physician History: This is a 49-year-old white female patient of Dr. Zuluaga who was brought to the emergency department by the paramedics because of an accidental overdose per the patient report. Patient states that she was having severe abdominal pain and accidentally took Nucynta. The paramedics arrived and provided her with Narcan which woke the patient up. Patient arrives to the emergency department awake, alert and oriented. Her vital signs are stable. She states it was an accident and she was not trying to commit suicide. She is not homicidal. She denies headache. She denies chest pain. She denies shortness of breath. She does complain of abdominal pain. Timing/Duration: today Severity of Symptoms-Max: mild Severity of Symptoms-Current: mild Context related to: other (Severe abdominal pain) Suicidal thoughts: other (Patient denies) Associated Symptoms: anxiety, ingestion, No suicidal ideation (Patient denies) Previous symptoms: same symptoms as today, no recent treatment Allergies/Adverse Reactions: Sulfa (Sulfonamide Antibiotics) Allergy (Intermediate, Verified 06/02/24 11:37) Vomiting ketorolac [From Toradol] Allergy (Unknown, Verified 06/02/24 11:37) bee venom protein (honey bee) Allergy (Verified 06/02/24 11:37) methylprednisolone [From Solu-Medrol] Allergy (Verified 06/02/24 11:37) anger can take oral steroids, IV steroids she cannot take -- states she gets "roid rage" promethazine [From Phenergan] Allergy (Verified 06/02/24 11:37) sumatriptan [From Imitrex] Allergy (Verified 06/02/24 11:37) nitrofurantoin [From Macrobid] Adverse Reaction (Verified 06/02/24 11:37) tramadol Adverse Reaction (Verified 06/02/24 11:37) Nausea flu vaccine Allergy (Intermediate, Uncoded 06/02/24 11:37) Hoarseness of voice Home Medications: Duloxetine HCl 30 mg [Cymbalta 30 MG Capsule] 30 mg PO DAILY 04/09/24 [History] Hx Tetanus, Diphtheria Vaccination/Date Given: Yes Hx Influenza Vaccination/Date Given: No Hx Pneumococcal Vaccination/Date Given: No Travel Risk - International Travel Have you traveled outside of the country in past 3 weeks: No - Emerging Infectious Disease Are you exhibiting symptoms associated with any current EIDs: No Symptoms: Cough: New Onset, Shortness of Breath, Other (Please Comment) Comment: chills - Past Medical History Pertinent Past Medical History: Yes Neurological History: Migraines ENT History: No Pertinent History Cardiac History: Peripheral Vascular Disease Respiratory History: No Pertinent History Endocrine Medical History: No Pertinent History Musculoskeletal History: Fibromyalgia GI Medical History: Gallbladder Disease History: Other Psycho-Social History: Bipolar Female Reproductive Disorders: Other Other Medical History: kidney stones, born with 1 kidney (left only), OVERDOSE - Past Surgical History Past Surgical History: Yes Neuro Surgical History: No Pertinent History Cardiac: No Pertinent History Respiratory: No Pertinent History Gastrointestinal: Bowel Surgery, Cholecystectomy Genitourinary: No Pertinent History Musculoskeletal: No Pertinent History Female Surgical History: Hysterectomy, Section, Tubal Ligation Other Surgical History: skin cancer removed twice, Umbilical hernia repair. ruptured hernia- colostomy and reversal. toe amputations to left foot, digits 2, 3, 4;. toe amputations to rt foot, digits 2, 3 Significant Family History: no pertinent family hx (No family history pertaining to this admission reported) - Female History Hx Last Menstrual Period: UNSURE - Social History Smoking Status: Current every day smoker How long have you smoked: 13 YEARS Exposure to second hand smoke: Yes Drug Use: methamphetamines Patient Lives Alone: No - Social Determinants of Health Will the patient participate in the screening: Yes Do you worry about a steady place to live?: No In the past 12 months,have you had to go without utilities?: No Transportation Issues: No Has anyone in your support network made you feel unsafe?: No Have you or anyone in your house had to go without enough: No - Review of Systems Constitutional: No Symptoms Eyes: No Symptoms Ears, Nose, & Throat: No Symptoms Respiratory: No Symptoms Cardiac: No Symptoms Abdominal/Gastrointestinal: Abdominal Pain Genitourinary Symptoms: No Symptoms Musculoskeletal: No Symptoms Skin: No Symptoms Neurological: No Symptoms Psychological: Anxiety, Depression, Suicidal Ideations (Multiple episodes in the past. Patient denies today), Homicidal Ideations (Patient denies) Endocrine: No Symptoms Hematologic/Lymphatic: No Symptoms Immunological/Allergic: No Symptoms All Other Systems: Reviewed and Negative - Nursing Vital Signs Nursing Vital Signs: Initial Vital Signs Pulse Rate 88 06/02/24 11:35 Blood Pressure 107/70 06/02/24 11:35 Pain Scale Pain Intensity 0 - Physical Exam General Appearance: no apparent distress, alert, anxiety Eyes, Ears, Nose, Throat Exam: other (edentulous) Neck Exam: normal inspection, non-tender, supple, full range of motion Respiratory Exam: normal breath sounds, lungs clear, airway intact, No chest tenderness, No respiratory distress Cardiovascular Exam: regular rate/rhythm, normal heart sounds, normal peripheral pulses Gastrointestinal/Abdominal Exam: soft, normal bowel sounds, No tenderness Extremities Exam: normal inspection, normal range of motion, No evidence of injury Current Suicidality: denies suicide plan Neurological Exam: alert, normal mood/affect, 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 QTc is 400) Ordered Tests: Medication Summary Discontinued Medications Generic Name Dose Route Start Last Admin Trade Name Yehuda PRN Reason Stop Dose Admin Acetaminophen 650 mg 06/02/24 18:48 06/02/24 18:54 Acetaminophen 325 Mg Tablet PO 06/02/24 18:49 650 mg STAT ONE Administration Acetaminophen Confirm 06/02/24 18:52 Acetaminophen 325 Mg Tablet Administered 06/02/24 18:53 Dose 650 mg .ROUTE .STK-MED ONE Cephalexin HCl 500 mg 06/02/24 16:50 06/02/24 17:01 Cephalexin Mh500 Mg Capsule PO 06/02/24 16:51 500 mg STAT ONE Administration Cephalexin HCl Confirm 06/02/24 16:58 Cephalexin Mh500 Mg Capsule Administered 06/02/24 16:59 Dose 500 mg .ROUTE .STK-MED ONE Sodium Chloride 1,000 mls @ 999 mls/hr 06/02/24 11:35 06/02/24 14:07 Sodium Chloride 0.9% 1000 Ml IV 06/02/24 12:35 Infused .Q1H1M STA Infusion Sodium Chloride Confirm 06/02/24 13:03 Sodium Chloride 0.9% 1000 Ml Administered 06/02/24 13:04 Dose 1,000 mls @ ud .ROUTE .STK-MED ONE Ondansetron HCl 4 mg 06/02/24 11:35 06/02/24 13:07 Ondansetron Hcl 4 Mg/2 Ml Vial IV 06/02/24 11:36 4 mg STAT ONE Administration Ondansetron HCl Confirm 06/02/24 13:03 Ondansetron Hcl 4 Mg/2 Ml Vial Administered 06/02/24 13:04 Dose 4 mg .ROUTE .STK-MED ONE Lab/Rad Data: Laboratory Result Diagrams 06/02/24 13:46 06/02/24 13:46 Laboratory Results 06/02/24 06/02/24 06/02/24 Range/Units 13:46 13:46 12:48 WBC 8.2 (3.98-10.04) x10^3/uL RBC 4.16 (3.93-5.22) x10^6/uL Hgb 13.1 (11.2-15.7) g/dL Hct 41.5 (34.1-44.9) % MCV 99.8 H (79.4-94.8) fL MCH 31.5 (25.6-32.2) pg MCHC 31.6 L (32.2-35.5) g/dL RDW 14.6 H (11.7-14.4) % Plt Count 316 (182-369) x10^3/uL MPV 9.1 L (9.4-12.3) fL Gran % 71.7 H (34.0-71.1) % Immature Gran % (Auto) 0.4 (0.001-0.429) % Nucleat RBC Rel Count 0.0 (0.00-0.2) % Eos # (Auto) 0.21 (0.04-0.36) x10^3/uL Immature Gran # (Auto) 0.03 (0.001-0.031) x10^3u/L Absolute Lymphs (auto) 1.56 (1.18-3.74) x10^3/uL Absolute Monos (auto) 0.51 (0.24-0.86) x10^3/uL Absolute Nucleated RBC 0.00 (0.00-0.012) x10^3u/L Lymphocytes % 19.0 L (19.3-51.7) % Monocytes % 6.2 (4.7-12.5) % Eosinophils % 2.6 (0.7-5.8) % Basophils % 0.1 (0.1-1.2) % Absolute Granulocytes 5.90 (1.56-6.13) x10^3/uL Basophils # 0.01 (0.01-0.08) x10^3/uL Sodium 140 (135-145) mmol/L Potassium 4.0 (3.5-5.1) mmol/L Chloride 111 H (98-107) mmol/L Carbon Dioxide 21 L (22-30) mmol/L Anion Gap 11.4 (5-15) MEQ/L BUN 18 H (7-17) mg/dL Creatinine 0.91 (0.52-1.04) mg/dL Estimated GFR 78.3 ML/MIN Glucose 85 (74-106) mg/dL Calcium 8.7 (8.4-10.2) mg/dL Total Bilirubin 0.20 (0.2-1.3) mg/dL AST 28 (14-36) U/L ALT 23 (0-35) U/L Alkaline Phosphatase 104 (38-126) U/L Serum Total Protein 6.8 (6.3-8.2) g/dL Albumin 4.0 (3.5-5.0) g/dL Amylase 83 (30-110) U/L Lipase 69 (23-300) U/L Urine Color (Yellow) Urine Appearance (Clear) Urine pH (4.6-8.0) Ur Specific [place] (1.005-1.030) Urine Protein (Negative) Urine Glucose (UA) (Negative) mg/dL Urine Ketones (Negative) Urine Blood (Negative) Urine Nitrite (Negative) Urine Bilirubin (Negative) Urine Urobilinogen (0.2) mg/dL Ur Leukocyte Esterase (Negative) U Hyaline Cast (Auto) (0-2) /LPF Urine Microscopic RBC (0-5) /HPF Urine Microscopic WBC (0-5) /HPF Ur Epithelial Cells (None Seen) /HPF Urine Bacteria (None Seen) /HPF Urine Culture Reflexed (NO) Salicylates < 1.0 L (2-20) mg/dL Urine Opiates Level (NEGATIVE) Ur Methadone (NEGATIVE) Acetaminophen < 10 L (10-30) ug/ml Urine Barbiturates (NEGATIVE) Ur Phencyclidine (PCP) (NEGATIVE) Urine Amphetamine (NEGATIVE) U Benzodiazepine Level (NEGATIVE) Urine Cocaine (NEGATIVE) Urine Marijuana (THC) (NEGATIVE) Ethyl Alcohol < 10 (0-10) mg/dL Influenza Type A Ag NEGATIVE (NEGATIVE) Influenza Type B Ag NEGATIVE (NEGATIVE) RSV (PCR) NEGATIVE (NEGATIVE) SARS-CoV-2 (PCR) NEGATIVE (NEGATIVE) 06/02/24 06/02/24 Range/Units 11:44 11:44 WBC (3.98-10.04) x10^3/uL RBC (3.93-5.22) x10^6/uL Hgb (11.2-15.7) g/dL Hct (34.1-44.9) % MCV (79.4-94.8) fL MCH (25.6-32.2) pg MCHC (32.2-35.5) g/dL RDW (11.7-14.4) % Plt Count (182-369) x10^3/uL MPV (9.4-12.3) fL Gran % (34.0-71.1) % Immature Gran % (Auto) (0.001-0.429) % Nucleat RBC Rel Count (0.00-0.2) % Eos # (Auto) (0.04-0.36) x10^3/uL Immature Gran # (Auto) (0.001-0.031) x10^3u/L Absolute Lymphs (auto) (1.18-3.74) x10^3/uL Absolute Monos (auto) (0.24-0.86) x10^3/uL Absolute Nucleated RBC (0.00-0.012) x10^3u/L Lymphocytes % (19.3-51.7) % Monocytes % (4.7-12.5) % Eosinophils % (0.7-5.8) % Basophils % (0.1-1.2) % Absolute Granulocytes (1.56-6.13) x10^3/uL Basophils # (0.01-0.08) x10^3/uL Sodium (135-145) mmol/L Potassium (3.5-5.1) mmol/L Chloride (98-107) mmol/L Carbon Dioxide (22-30) mmol/L Anion Gap (5-15) MEQ/L BUN (7-17) mg/dL Creatinine (0.52-1.04) mg/dL Estimated GFR ML/MIN Glucose (74-106) mg/dL Calcium (8.4-10.2) mg/dL Total Bilirubin (0.2-1.3) mg/dL AST (14-36) U/L ALT (0-35) U/L Alkaline Phosphatase (38-126) U/L Serum Total Protein (6.3-8.2) g/dL Albumin (3.5-5.0) g/dL Amylase (30-110) U/L Lipase (23-300) U/L Urine Color Dark Yellow A (Yellow) Urine Appearance Cloudy A (Clear) Urine pH 6.0 (4.6-8.0) Ur Specific [place] >=1.030 A (1.005-1.030) Urine Protein 30 (Negative) Urine Glucose (UA) Negative (Negative) mg/dL Urine Ketones Trace A (Negative) Urine Blood Negative (Negative) Urine Nitrite Negative (Negative) Urine Bilirubin Small A (Negative) Urine Urobilinogen 1.0 A (0.2) mg/dL Ur Leukocyte Esterase Small A (Negative) U Hyaline Cast (Auto) 6-10 A (0-2) /LPF Urine Microscopic RBC 6-10 A (0-5) /HPF Urine Microscopic WBC 11-20 A (0-5) /HPF Ur Epithelial Cells Few (None Seen) /HPF Urine Bacteria Moderate A (None Seen) /HPF Urine Culture Reflexed ORDERED SEPARATELY (NO) Salicylates (2-20) mg/dL Urine Opiates Level POSITIVE A (NEGATIVE) Ur Methadone NEGATIVE (NEGATIVE) Acetaminophen (10-30) ug/ml Urine Barbiturates NEGATIVE (NEGATIVE) Ur Phencyclidine (PCP) NEGATIVE (NEGATIVE) Urine Amphetamine NEGATIVE (NEGATIVE) U Benzodiazepine Level NEGATIVE (NEGATIVE) Urine Cocaine NEGATIVE (NEGATIVE) Urine Marijuana (THC) NEGATIVE (NEGATIVE) Ethyl Alcohol (0-10) mg/dL Influenza Type A Ag (NEGATIVE) Influenza Type B Ag (NEGATIVE) RSV (PCR) (NEGATIVE) SARS-CoV-2 (PCR) (NEGATIVE) - Progress Progress: unchanged Progress Note: 06/02/24 12:24 My medical decision making of the assignment of moderate to high complexity is based on review of the patient's past medical history, review of the patient's medication list, reviewed patient drug allergy list, history present illness and physical findings on examination. The workup in this patient includes placement of intravenous line, infusion of normal saline solution, infusion of Zofran, infusion of Protonix, CBC, CMP, salicylate level, acetaminophen level, alcohol level, urinalysis, urine drug triage, twelve-lead EKG, CT scan of the abdomen pelvis without contrast, viral swabs. Differential diagnosis includes is not limited to suicidal attempt, accidental overdose 06/02/24 16:54 I interpreted the patient's laboratory data results. Based on the laboratory data results, the patient has a urinary tract infection. CT scan of the abdomen pelvis without contrast was interpreted by the radiologist and I reviewed the impression. The impression states no new or acute findings. There is evidence of fecal stasis present. Counseled pt/family regarding: lab results, diagnosis, rad results Medical Desision Making - Independent Historian Additional History obtained from: [employer]/EMT - Discussion of managment Care discussed with:: specialist ([facility] psychiatrist) Reviewed:: Test results, Need for additional workup Will see patient: in hospital - Diagnostic Testing Diagnostic test were ordered, analyzed, and reviewed by me: Yes Radiological Interpretation: Reviewed by me, Teleradiologist Report - Risk of complications The pt has a high risk of morbidity or mortality based on: Decision regarding hospitilization or escalation of hosp level of care - Departure Departure Disposition: Transfer Clinical Impression: Overdose by ingestion, UTI (urinary tract infection) Condition: Stable Critical Care Time: No Referrals: GASTON ZULUAGA [Primary Care Provider] - Follow up/PCP as directed Instructions: Accidental Overdose, Adult ED, Urinary tract infection in adults - ED discharge instructions
[2024-06-02 11:44] VITALS: TEMP 97.9
[2024-06-02] MEDS ORDERED: Sodium Chloride 0.9% 1000 ML 1,000 ML ONE (13:03)
[2024-06-02] MEDS ORDERED: Zofran 4 MG/2 ML VIAL ONE (13:03)
[2024-06-02] MEDS: Sodium Chloride 0.9% 1000 ML 1,000 ML IV STA (13:05)
[2024-06-02] MEDS: Zofran 4 MG/2 ML VIAL IV ONE (13:07)
[2024-06-02 13:24] LABS: Amphetamine,Urine NEGATIVE (NEGATIVE); Appearance Cloudy (Clear); Bacteria Moderate /HPF (None Seen); Barbiturate,Urine NEGATIVE (NEGATIVE); Benzodiazepine,Urine NEGATIVE (NEGATIVE); Bilirubin Small (Negative); Blood Negative (Negative); Cocaine,Urine NEGATIVE (NEGATIVE); Epithelial Cells Few /HPF (None Seen); Glucose, Urine Negative (Negative); Ketones Trace (Negative); Leukocyte Esterase Small (Negative); Methadone,Urine NEGATIVE (NEGATIVE); Nitrite Negative (Negative); PCP,Urine NEGATIVE (NEGATIVE); Protein,Urine Dip 30 (Negative); Specific Gravity >=1.030 (1.005-1.030); THC,Urine NEGATIVE (NEGATIVE)
[2024-06-02 13:32] LABS: INFLUENZA A NEGATIVE (NEGATIVE); INFLUENZA B NEGATIVE (NEGATIVE); RESPIRATORY SYNCTIAL VIRUS NEGATIVE (NEGATIVE); SARS-CoV-2 Xpert Express NEGATIVE (NEGATIVE)
[2024-06-02 13:33] LABS: Opiate,Urine POSITIVE (NEGATIVE)
--- NOTE | 2024-06-02 13:33 | XRAY ---
Indication: Severe abdominal pain. Multiple contiguous axial images obtained through the abdomen and pelvis without contrast. Comparison: April 25, 2023 Lung bases remain clear again with incidental left base and distal paraesophageal calcified granulomas. Heart not enlarged. Noncontrasted stomach and bowel loops appear nonobstructed. Appendix not visualized. Again mild diffuse scattered colonic fecal more than before, greatest in descending colon. Again congenitally absent right kidney, 3 nonobstructing left renal punctate calculi, IVC duplication, intact sigmoid anastomosis, splenic calcified granulomas, and cholecystectomy. No free fluid/air. Remaining liver, pancreas, spleen, adrenal glands, left kidney, left ureter, and bladder are unremarkable for noncontrast exam. Again mild aortoiliac calcifications without AAA. Osseous structures intact again with minimal degenerative changes throughout spine and minimal levoscoliosis centered at L3. Impression: 1. Worsening mild diffuse colonic fecal stasis. 2. Again chronic findings including nonobstructing left renal punctate calculi, congenitally absent right kidney, IVC duplication, arteriosclerotic disease, and old granulomatous disease. 3. No new/acute findings on this noncontrast exam.
[2024-06-02 13:52] LABS: BASOPHIL % 0.1 % (0.1-1.2); Basophil (Absolute #) 0.01 x10^3/uL (0.01-0.08); Eosinophil % 2.6 % (0.7-5.8); Eosinophil (Absolute #) 0.21 x10^3/uL (0.04-0.36); Hematocrit 41.5 % (34.1-44.9); Hemoglobin 13.1 g/dL (11.2-15.7); IMMATURE GRAN # 0.03 x10^3u/L (0.001-0.031); IMMATURE GRAN % 0.4 % (0.001-0.429); Lymphocyte (Absolute #) 1.56 x10^3/uL (1.18-3.74); Mean Cell Volume 99.8 fL (79.4-94.8); Mean Corpuscular Hemoglobin 31.5 pg (25.6-32.2); Mean Corpuscular Hgb Concent. 31.6 g/dL (32.2-35.5); Mean Platelet Volume 9.1 fL (9.4-12.3); Monocyte (Absolute #) 0.51 x10^3/uL (0.24-0.86); Monocytes % 6.2 % (4.7-12.5); Neutrophil % 71.7 % (34.0-71.1); Platelet Count 316 x10^3/uL (182-369); Red Blood Count 4.16 x10^6/uL (3.93-5.22); Red Cell Distribution Width 14.6 % (11.7-14.4); White Blood Count 8.2 x10^3/uL (3.98-10.04)
[2024-06-02 14:06] LABS: ACETAMINOPHEN < 10 ug/ml (10-30); ALKALINE PHOSPHATASE 104 U/L (38-126); AMYLASE 83 U/L (30-110); ANION GAP 11.4 MEQ/L (5-15); BLOOD UREA NITROGEN 18 mg/dL (7-17); CHLORIDE 111 mmol/L (98-107); Calcium 8.7 mg/dL (8.4-10.2); Carbon Dioxide 21 mmol/L (22-30); Creatinine 1 0.91 mg/dL (0.52-1.04); EST GLOMERULAR FILTRATION RATE 78.3 ML/MIN; ETHYL ALCOHOL < 10 mg/dL (0-10); Glucose 85 mg/dL (74-106); LIPASE 69 U/L (23-300); SALICYLATE < 1.0 mg/dL (2-20); SGOT/AST 28 U/L (14-36); SGPT/ALT 23 U/L (0-35); SODIUM 140 mmol/L (135-145); Total Protein 6.8 g/dL (6.3-8.2)
[2024-06-02] MEDS ORDERED: KEFLEX 500 MG ONE (16:58)
[2024-06-02] MEDS: KEFLEX 500 MG PO ONE (17:01)
[2024-06-02] MEDS ORDERED: TYLENOL 325 MG ONE (18:52)
[2024-06-02] MEDS: TYLENOL 325 MG PO ONE (18:54)
[2024-06-03 01:06] VITALS: O2SAT 95
[2024-06-03 03:03] VITALS: BP 108/72; PULSE 68; RESP 16
== END 2024-06-03 03:04 | disposition short-term general hospital (02) ==
LOC: ED 11:32
DX: T40.2X1A Poisoning by other opioids, accidental (unintentional), initial encounter (principal); R40.4 Transient alteration of awareness; F33.2 Major depressive disorder, recurrent severe without psychotic features; F11.90 Opioid use, unspecified, uncomplicated; Z79.899 Other long term (current) drug therapy; Z72.0 Tobacco use
CPT/HCPCS: 0241U; 36415; 74176; 80053; 80143; 80179; 80307; 81001; 82077; 82150; 83690; 85025; 87077; 87086; 87186; 93005; 93041; 96360; 96374; 99285; Q3014; J2405; A9270-GY

== ENCOUNTER 2024-06-21 18:09 | Emergency (ER) | payer OTHER | END 2024-06-21 19:10 | disposition left against medical advice (07) | LOC: ED 18:09 | DX: Z53.21 Procedure and treatment not carried out due to patient leaving prior to being seen by health care provider (principal) ==

== ENCOUNTER 2024-08-03 18:08 | Emergency (ER) | payer OTHER ==
[2024-08-03 18:16] VITALS: TEMP 98.2
--- NOTE | 2024-08-03 18:29 | ERPHSYRPT ---
- History of Present Illness Time Seen by Provider: 08/03/24 18:24 Source: patient, family Exam Limitations: no limitations Patient Subjective Stated Complaint: Pt states "Our dogs got into it and I got the worst of it. It happened a couple of days ago and I can barely put pressure on my right foot. my right knee hurts to bad." Triage Nursing Assessment: Pt presented alert and oriented x 3, skin pwd. Pt right knee is bruised, abraised and swollen. PT ambulates with a limp. Physician History: This is a 49-year-old white female patient Dr. Zuluaga who arrives by private vehicle accompanied by her significant other with the complaint of right knee pain that occurred 2 days ago. Patient got tripped up the dogs in her yard. She has tried ice and Tylenol and ibuprofen and those have not worked. She can ambulate but it makes the knee hurt when she is weightbearing on her right foot. She did not lose consciousness. She has no head or neck pain. This patient has a significant history of narcotic abuse and she was told we we will be avoiding narcotics. She states that Toradol works for her but she has to have Zofran with it. Method of Injury: other (Tripped up over her dogs and fell onto her right knee) Occurred: days ago (2) Quality: aching Severity of Pain-Max: moderate Severity of Pain-Current: mild (To moderate) Lower Extremities Pain: knee: right Modifying Factors: Improves With: movement Associated Symptoms: other (Weightbearing hurts but she is capable of doing this.) Allergies/Adverse Reactions: Sulfa (Sulfonamide Antibiotics) Allergy (Intermediate, Verified 06/02/24 11:37) Vomiting bee venom protein (honey bee) Allergy (Verified 06/02/24 11:37) methylprednisolone [From Solu-Medrol] Allergy (Verified 06/02/24 11:37) anger can take oral steroids, IV steroids she cannot take -- states she gets "roid rage" promethazine [From Phenergan] Allergy (Verified 06/02/24 11:37) sumatriptan [From Imitrex] Allergy (Verified 06/02/24 11:37) nitrofurantoin [From Macrobid] Adverse Reaction (Verified 06/02/24 11:37) tramadol Adverse Reaction (Verified 06/02/24 11:37) Nausea flu vaccine Allergy (Intermediate, Uncoded 06/02/24 11:37) Hoarseness of voice Home Medications: Duloxetine HCl 30 mg [Cymbalta 30 MG Capsule] 30 mg PO DAILY 04/09/24 [History] Hx Tetanus, Diphtheria Vaccination/Date Given: Yes Hx Influenza Vaccination/Date Given: No Hx Pneumococcal Vaccination/Date Given: No Immunizations Up to Date: No Travel Risk - International Travel Have you traveled outside of the country in past 3 weeks: No - Emerging Infectious Disease Are you exhibiting symptoms associated with any current EIDs: No Symptoms: Cough: New Onset, Shortness of Breath, Other (Please Comment) Comment: chills - Review of Systems Constitutional: No Symptoms Eyes: No Symptoms Ears, Nose, & Throat: No Symptoms Respiratory: No Symptoms Cardiac: No Symptoms Abdominal/Gastrointestinal: No Symptoms Genitourinary Symptoms: No Symptoms Musculoskeletal: Fall, Injury (Right knee) Neurological: No Symptoms Psychological: No Symptoms Endocrine: No Symptoms Hematologic/Lymphatic: No Symptoms Immunological/Allergic: No Symptoms All Other Systems: Reviewed and Negative - Past Medical History Pertinent Past Medical History: Yes Neurological History: Migraines ENT History: No Pertinent History Cardiac History: Peripheral Vascular Disease Respiratory History: No Pertinent History Endocrine Medical History: No Pertinent History Musculoskeletal History: Fibromyalgia GI Medical History: Gallbladder Disease History: Other Psycho-Social History: Bipolar Female Reproductive Disorders: Other Other Medical History: kidney stones, born with 1 kidney (left only), OVERDOSE - Past Surgical History Past Surgical History: Yes Neuro Surgical History: No Pertinent History Cardiac: No Pertinent History Respiratory: No Pertinent History Gastrointestinal: Bowel Surgery, Cholecystectomy Genitourinary: No Pertinent History Musculoskeletal: No Pertinent History Female Surgical History: Hysterectomy, Section, Tubal Ligation Other Surgical History: skin cancer removed twice, Umbilical hernia repair. ruptured hernia- colostomy and reversal. toe amputations to left foot, digits 2, 3, 4;. toe amputations to rt foot, digits 2, 3 Significant Family History: no pertinent family hx (No family history pertaining to this admission reported) - Female History Hx Last Menstrual Period: hysterectomy Hx Now: No - Social History Smoking Status: Current every day smoker How long have you smoked: 13 YEARS Exposure to second hand smoke: Yes Drug Use: methamphetamines - Social Determinants of Health Will the patient participate in the screening: Yes Do you worry about a steady place to live?: No Do you have any problems with any of the following?: No known problems In the past 12 months,have you had to go without utilities?: No Transportation Issues: No Has anyone in your support network made you feel unsafe?: No Have you or anyone in your house had to go w/o enough food: No - Nursing Vital Signs Nursing Vital Signs: Initial Vital Signs Temperature 98.2 F 08/03/24 18:12 Pulse Rate 104 H 08/03/24 18:12 Respiratory Rate 20 08/03/24 18:12 Blood Pressure 118/84 08/03/24 18:12 O2 Sat by Pulse Oximetry 97 08/03/24 18:12 Pain Scale Pain Intensity 7 - Physical Exam General Appearance: no apparent distress, alert Eyes, Ears, Nose, Throat Exam: normal ENT inspection, moist mucous membranes Neck Exam: normal inspection, non-tender, supple, full range of motion Cardiovascular/Respiratory Exam: chest non-tender, no respiratory distress Gastrointestinal/Abdominal Exam: non-tender Back Exam: normal inspection, normal range of motion, No CVA tenderness, No vertebral tenderness Hips Exam: bilateral: non-tender, normal inspection, normal range of motion, no evidence of injury Legs Exam: bilateral leg: non-tender, normal inspection, normal range of motion, no evidence of injury Knees Exam: right knee: normal inspection, normal range of motion, bone tenderness, soft tissue tenderness, left knee: non-tender, no evidence of injury Foot Exam: bilateral foot: non-tender, normal inspection, normal range of motion, no evidence of injury Neuro/Tendon Exam: normal sensation, normal motor functions, normal tendon functions Mental Status Exam: alert, oriented x 3, cooperative Skin Exam: normal color, warm, dry SpO2 Interpretation: normal SpO2: 97 O2 Delivery: Room Air - Course Nursing assessment & vital signs reviewed: Yes Ordered Tests: Active Orders 24 hr Category Date Time Status KNEE (3 VIEWS) Stat Exams 08/03/24 18:38 Ordered - Progress Progress Note: 08/03/24 18:37 Medical decision making and the assignment of low complexity to this patient's medical issue today is based on review of the patient's past medical history, review the patient's medication list, reviewed patient drug allergy list, history present illness and physical findings on examination. The workup in this patient includes x-ray of the right knee. Differential diagnosis includes but is not limited to fracture/dislocation, contusion of right knee. I did review the patient's renal function including creatinine and GFR over several readings over several years. The patient's creatinine and GFR are normal and have been normal despite her having a single kidney. I think a single dose of Toradol orally once is safe for her to take. She states that this helps her pain. She states that she is not allergic to the Toradol. I am transferring care of this patient to Dr. Lane Josue at shift change. He will follow-up with the pending studies and make final disposition. 08/03/24 18:40 - Departure Departure Disposition: Home Clinical Impression: Right anterior knee pain Condition: Stable Critical Care Time: No Referrals: GASTON ZULUAGA [Primary Care Provider] - Follow up/PCP as directed
[2024-08-03] MEDS ORDERED: ZOFRAN ODT 4 MG ONE (18:49)
[2024-08-03] MEDS: TORAdol 10 MG TABLET PO ONE (19:04)
[2024-08-03] MEDS: ZOFRAN ODT 4 MG PO ONE (19:08)
[2024-08-03 19:09] VITALS: BP 117/87; PULSE 87; RESP 18; O2SAT 95
--- NOTE | 2024-08-04 08:56 | XRAY ---
Indication: Pain following fall. Comparison: None 3 view right knee obtained. No bony, articular, or soft tissue abnormalities.
== END 2024-08-03 19:18 | disposition home or self-care (01) ==
LOC: ED 18:08
DX: M25.561 Pain in right knee (principal); S80.01XA Contusion of right knee, initial encounter; W01.0XXA Fall on same level from slipping, tripping and stumbling without subsequent striking against object, initial encounter; Y92.007 Garden or yard of unspecified non-institutional (private) residence as the place of occurrence of the external cause; Z79.899 Other long term (current) drug therapy; Z72.0 Tobacco use
CPT/HCPCS: 73562; 99283; Q0162; A9270-GY

== ENCOUNTER 2024-08-27 17:45 | Emergency (ER) | payer OTHER ==
--- NOTE | 2024-08-27 17:59 | ERPHSYRPT ---
- History of Present Illness Source: patient Exam Limitations: no limitations Physician History: Patient took about 11 [place]'sThroughout the day. 5 milligrams Each. She also took 2 Nucynta's.She took new symptoms about 24 hours ago. Somebody found herSomewhat unresponsive and called EMS. When they got there they gave her Narcan. They said when they got there she was not responsive. She was breathing on her own. She was alert and oriented and starting to becomeAware of exactly what it happened to her. She did not really remember a lot of it but she believes it once we told her.She is in no distress and her vital signs are stable. She did not do this out of self-harm. She did not she said because she was having pain.She has had this done previous times recently. She was mentioned by the EMS personnel that it is the fourth time since December that they have been on the run. So it seems to be a recurrent problem. Allergies/Adverse Reactions: Sulfa (Sulfonamide Antibiotics) Allergy (Intermediate, Verified 08/27/24 18:03) Vomiting bee venom protein (honey bee) Allergy (Verified 08/27/24 18:03) methylprednisolone [From Solu-Medrol] Allergy (Verified 08/27/24 18:03) anger can take oral steroids, IV steroids she cannot take -- states she gets "roid rage" promethazine [From Phenergan] Allergy (Verified 08/27/24 18:03) sumatriptan [From Imitrex] Allergy (Verified 08/27/24 18:03) nitrofurantoin [From Macrobid] Adverse Reaction (Verified 08/27/24 18:03) tramadol Adverse Reaction (Verified 08/27/24 18:03) Nausea flu vaccine Allergy (Intermediate, Uncoded 08/27/24 18:03) Hoarseness of voice Home Medications: Duloxetine HCl 30 mg [Cymbalta 30 MG Capsule] 60 mg PO BID 04/09/24 [History] Gabapentin [Neurontin ] 600 mg PO QID PRN 08/27/24 [History] Hx Tetanus, Diphtheria Vaccination/Date Given: Yes Hx Influenza Vaccination/Date Given: No Hx Pneumococcal Vaccination/Date Given: No Travel Risk - Emerging Infectious Disease Are you exhibiting symptoms associated with any current EIDs: No Symptoms: Cough: New Onset, Shortness of Breath, Other (Please Comment) Comment: chills - Review of Systems Constitutional: No Symptoms Eyes: No Symptoms Ears, Nose, & Throat: No Symptoms Respiratory: No Symptoms Skin: No Symptoms Neurological: No Symptoms Psychological: Drug Abuse All Other Systems: Reviewed and Negative - Past Medical History Pertinent Past Medical History: Yes Neurological History: Migraines ENT History: No Pertinent History Cardiac History: Peripheral Vascular Disease Respiratory History: No Pertinent History Endocrine Medical History: No Pertinent History Musculoskeletal History: Fibromyalgia GI Medical History: Gallbladder Disease History: Other Psycho-Social History: Bipolar Female Reproductive Disorders: Other Other Medical History: kidney stones, born with 1 kidney (left only), OVERDOSE - Past Surgical History Past Surgical History: Yes Neuro Surgical History: No Pertinent History Cardiac: No Pertinent History Respiratory: No Pertinent History Gastrointestinal: Bowel Surgery, Cholecystectomy Genitourinary: No Pertinent History Musculoskeletal: No Pertinent History Female Surgical History: Hysterectomy, Section, Tubal Ligation Other Surgical History: skin cancer removed twice, Umbilical hernia repair. ruptured hernia- colostomy and reversal. toe amputations to left foot, digits 2, 3, 4;. toe amputations to rt foot, digits 2, 3 Significant Family History: no pertinent family hx (No family history pertaining to this admission reported) - Female History Hx Last Menstrual Period: hysterectomy - Social History Smoking Status: Current every day smoker How long have you smoked: 13 YEARS Exposure to second hand smoke: Yes Drug Use: methamphetamines - Social Determinants of Health Will the patient participate in the screening: Yes Do you worry about a steady place to live?: No In the past 12 months,have you had to go without utilities?: No Transportation Issues: No Has anyone in your support network made you feel unsafe?: No Have you or anyone in your house had to go w/o enough food: No - Nursing Vital Signs Nursing Vital Signs: Initial Vital Signs Temperature 97.5 F 08/27/24 18:00 Pulse Rate 97 H 08/27/24 18:00 Respiratory Rate 19 08/27/24 18:00 Blood Pressure 136/107 08/27/24 18:00 O2 Sat by Pulse Oximetry 99 08/27/24 18:00 Pain Scale Pain Intensity 8 - Physical Exam General Appearance: no apparent distress Eye Exam: PERRL/EOMI, other (Pupils are dilated now.) Neck Exam: normal inspection Respiratory Exam: normal breath sounds, lungs clear, No chest tenderness Cardiovascular Exam: regular rate/rhythm, normal heart sounds Gastrointestinal/Abdomen Exam: soft, normal bowel sounds Neurologic Exam: alert, oriented x 3, cooperative, normal mood/affect Skin Exam: normal color, warm, dry - Progress Progress: improved Progress Note: Patient was alert and oriented throughout stay. She had acute mentation.We wa tched her for about 2 hours. I think it safe for her to go home. The Nucynta that she took was well over 24 hours ago. 08/27/24 19:25 - Departure Departure Disposition: Home Clinical Impression: Overdose Qualifiers: Encounter type: initial encounter Injury intent: accidental or unintentional Qualified Code(s): T50.901A - Poisoning by unspecified drugs, medicaments and biological substances, accidental (unintentional), initial encounter Condition: Stable Critical Care Time: No Referrals: GASTON CAMPUZANO [Primary Care Provider] - Follow up/PCP as directed Instructions: Opioid Overdose ED
[2024-08-27 18:06] VITALS: TEMP 97.5
[2024-08-27 20:13] VITALS: BP 140/89; PULSE 90; RESP 20; O2SAT 97
== END 2024-08-27 20:12 | disposition home or self-care (01) ==
LOC: ED 17:45
DX: T40.2X1A Poisoning by other opioids, accidental (unintentional), initial encounter (principal); T39.1X1A Poisoning by 4-Aminophenol derivatives, accidental (unintentional), initial encounter; R40.0 Somnolence; Z79.899 Other long term (current) drug therapy; Z72.0 Tobacco use
CPT/HCPCS: 99283

== ENCOUNTER 2024-09-03 15:08 | Emergency (ER) | payer OTHER ==
--- NOTE | 2024-09-03 15:14 | ERPHSYRPT ---
- History of Present Illness Time Seen by Provider: 09/03/24 15:13 Historian: patient Exam Limitations: no limitations Physician History: This is a 49-year-old white female patient who frequents our emergency department often. Today, she arrives to the emergency department by private vehicle secondary to middle chest pain that radiates into her right shoulder and bilateral neck. She also complains of left side abdominal pain that radiates into her lower back. Patient does not have any documented coronary artery disease. Her primary care provider is Dr. Zuluaga. Patient has a history of fibromyalgia, peripheral vascular disease, hypertension and bipolar disorder. Approximately 2-1/2 weeks ago she had overdosed on narcotics/illicit drugs. She states she has not used any narcotics in the last 2-1/2 weeks. Patient denies shortness of breath. She has not had any nausea vomiting or diarrhea symptoms. Timing/Duration: yesterday Quality: sharpness, stabbing Chest Pain Radiation: neck, back Severity of Pain-Max: moderate Severity of Pain-Current: moderate Modifying Factors: Improves With: nothing Associated Symptoms: No nausea, No vomiting, No abdominal pain (Left upper quadrant), No shortness of breath, No headache Nitro Today/Relief: no nitro taken today Aspirin Treatment Today: no aspirin today Allergies/Adverse Reactions: Sulfa (Sulfonamide Antibiotics) Allergy (Intermediate, Verified 09/03/24 15:19) Vomiting bee venom protein (honey bee) Allergy (Verified 09/03/24 15:19) methylprednisolone [From Solu-Medrol] Allergy (Verified 09/03/24 15:19) anger can take oral steroids, IV steroids she cannot take -- states she gets "roid rage" promethazine [From Phenergan] Allergy (Verified 09/03/24 15:19) sumatriptan [From Imitrex] Allergy (Verified 09/03/24 15:19) nitrofurantoin [From Macrobid] Adverse Reaction (Verified 09/03/24 15:19) tramadol Adverse Reaction (Verified 09/03/24 15:19) Nausea flu vaccine Allergy (Intermediate, Uncoded 09/03/24 15:19) Hoarseness of voice Home Medications: Duloxetine HCl 30 mg [Cymbalta 30 MG Capsule] 60 mg PO BID 04/09/24 [History] Gabapentin [Neurontin ] 600 mg PO QID PRN 08/27/24 [History] Hx Tetanus, Diphtheria Vaccination/Date Given: Yes Hx Influenza Vaccination/Date Given: No Hx Pneumococcal Vaccination/Date Given: No Travel Risk - International Travel Have you traveled outside of the country in past 3 weeks: No - Emerging Infectious Disease Are you exhibiting symptoms associated with any current EIDs: No Symptoms: Cough: New Onset, Shortness of Breath, Other (Please Comment) Comment: chills - Review of Systems Constitutional: No Symptoms Eyes: No Symptoms Respiratory: Cough Cardiac: Chest Pain Abdominal/Gastrointestinal: Abdominal Pain (Upper quadrant) Genitourinary Symptoms: No Symptoms Musculoskeletal: Back Pain (Low back pain), No Injury Skin: No Symptoms Neurological: No Symptoms Psychological: No Symptoms Endocrine: No Symptoms Hematologic/Lymphatic: No Symptoms Immunological/Allergic: No Symptoms All Other Systems: Reviewed and Negative - Past Medical History Pertinent Past Medical History: Yes Neurological History: Migraines ENT History: No Pertinent History Cardiac History: Peripheral Vascular Disease Respiratory History: No Pertinent History Endocrine Medical History: No Pertinent History Musculoskeletal History: Fibromyalgia GI Medical History: Gallbladder Disease History: Other Psycho-Social History: Bipolar Female Reproductive Disorders: Other Other Medical History: kidney stones, born with 1 kidney (left only), OVERDOSE - Past Surgical History Past Surgical History: Yes Neuro Surgical History: No Pertinent History Cardiac: No Pertinent History Respiratory: No Pertinent History Gastrointestinal: Bowel Surgery, Cholecystectomy Genitourinary: No Pertinent History Musculoskeletal: No Pertinent History Female Surgical History: Hysterectomy, Section, Tubal Ligation Other Surgical History: skin cancer removed twice, Umbilical hernia repair. ruptured hernia- colostomy and reversal. toe amputations to left foot, digits 2, 3, 4;. toe amputations to rt foot, digits 2, 3 Significant Family History: no pertinent family hx (No family history pertaining to this admission reported) - Female History Hx Last Menstrual Period: hysterectomy - Social History Smoking Status: Current every day smoker How long have you smoked: 13 YEARS Exposure to second hand smoke: Yes Drug Use: methamphetamines - Social Determinants of Health Will the patient participate in the screening: Yes Do you worry about a steady place to live?: No In the past 12 months,have you had to go without utilities?: No Transportation Issues: No Has anyone in your support network made you feel unsafe?: No Have you or anyone in your house had to go w/o enough food: No - Nursing Vital Signs Nursing Vital Signs: Initial Vital Signs Temperature 97.9 F 09/03/24 15:10 Pulse Rate 102 H 09/03/24 15:10 Respiratory Rate 28 H 09/03/24 15:10 Blood Pressure 136/109 09/03/24 15:10 O2 Sat by Pulse Oximetry 98 09/03/24 15:10 Pain Scale Pain Intensity 0 - Physical Exam General Appearance: mild distress, alert, anxiety Ears, Nose, Throat Exam: moist mucous membranes, other (edentulous) Neck Exam: normal inspection, non-tender, supple, full range of motion Respiratory Exam: normal breath sounds, chest tenderness, lungs clear, airway intact, No respiratory distress Cardiovascular Exam: regular rate/rhythm, normal heart sounds, normal peripheral pulses Gastrointestinal/Abdomen Exam: soft, normal bowel sounds, tenderness (Upper quadrant), No guarding, No rebound Pelvic Exam: not done Rectal Exam: not done Back Exam: normal inspection, normal range of motion, No CVA tenderness, No vertebral tenderness Extremity Exam: normal inspection, normal range of motion, pelvis stable Neurologic Exam: alert, oriented x 3, cooperative, curber II-XII nml as tested, nml cerebellar function, nml station & gait, sensation nml Skin Exam: normal color, warm, dry Lymphatic Exam: No adenopathy SpO2 Interpretation: normal O2 Delivery: Room Air - Course Nursing assessment & vital signs reviewed: Yes EKG Interpreted by Me: RATE (97), Sinus Rhythm, LAFB, NORMAL INTERVALS, NORMAL QRS, Other (QTc is 431. No acute ischemic changes on today's twelve-lead EKG.) Ordered Tests: Active Orders 24 hr Category Date Time Status AGAINST MEDICAL ADVISE [Release AMA] OM.NOW Care 09/03/24 16:20 Active Rounder And Backer STAT Care 09/03/24 15:14 Active EKG-ER Only STAT Care 09/03/24 15:13 Active - Progress Progress: unchanged Air Movement: good Progress Note: 09/03/24 16:30 My medical decision making and the assignment of moderate complexity to this patient's medical issue today is based on review of the patient's past medical history, review the patient's medication list, review the patient drug allergy list, history present illness and physical findings on examination. The workup planned in this patient includes CBC, CMP, magnesium level, troponin level, twelve-lead EKG, urinalysis, urine drug screen. Differential diagnosis includes but is not limited to myocardial infarction, electrolyte abnormalities, arrhythmia, urinary tract infection, drug-seeking The lab technicians went in to draw the patient's blood. She told them in advance that she would only allow 1 stick. The lab draw was unsuccessful. She was refusing any more lab draws. I spoke with her about allowing the nurse to go in and attempt to obtain labs and/or an IV placement. After initially telling me she would allow the nurse to attempt to draw labs or have an IV line placed, the nurse stated that the patient told him she is leaving AGAINST MEDICAL ADVICE and does not want lab draws or IV placed. Patient left without signing AGAINST MEDICAL ADVICE form. Blood Culture(s) Obtained: No Antibiotics given: No Medical Desision Making - Diagnostic Testing Diagnostic test were ordered, analyzed, and reviewed by me: No - Risk of complications Low Risk: Low risk of morbidity from additional dx testing or treatment - Departure Departure Disposition: AMA Clinical Impression: Chest pain, Abdominal pain Condition: Stable Critical Care Time: No Referrals: GASTON ZULUAGA [Primary Care Provider, [facility]] - Follow up/PCP as directed Additional Instructions: Return to the emergency department if you want to allow us to attempt to place an IV or obtain labs or if your symptoms worsen. Call your primary care provider on 09/06/2024, to make arrangement for follow-up appointment for further evaluation and management.
[2024-09-03 15:19] VITALS: TEMP 97.9
[2024-09-03 15:22] VITALS: PULSE 99
[2024-09-03 16:09] VITALS: BP 137/94; RESP 26; O2SAT 98
== END 2024-09-03 16:19 | disposition left against medical advice (07) ==
LOC: ED 15:08
DX: R07.9 Chest pain, unspecified (principal); R10.9 Unspecified abdominal pain; I10 Essential (primary) hypertension; Z79.899 Other long term (current) drug therapy; Z72.0 Tobacco use
CPT/HCPCS: 93005; 93041; 99283; 99284

== ENCOUNTER 2025-04-26 09:27 | Observation (INO) | payer BC, OTHER ==
--- NOTE | 2025-04-26 10:05 | ERPHSYRPT ---
- History of Present Illness Patient Subjective Stated Complaint: . Triage Nursing Assessment: . Allergies/Adverse Reactions: Sulfa (Sulfonamide Antibiotics) Allergy (Intermediate, Verified 04/26/25 09:44) Vomiting bee venom protein (honey bee) Allergy (Verified 04/26/25 09:44) methylprednisolone [From Solu-Medrol] Allergy (Verified 04/26/25 09:44) anger can take oral steroids, IV steroids she cannot take -- states she gets "roid rage" promethazine [From Phenergan] Allergy (Verified 04/26/25 09:44) sumatriptan [From Imitrex] Allergy (Verified 04/26/25 09:44) nitrofurantoin [From Macrobid] Adverse Reaction (Verified 04/26/25 09:44) tramadol Adverse Reaction (Verified 04/26/25 09:44) Nausea flu vaccine Allergy (Intermediate, Uncoded 04/26/25 09:44) Hoarseness of voice Home Medications: Gabapentin [Neurontin ] 600 mg PO QID PRN 08/27/24 [History] Dicyclomine HCl 20 mg [Bentyl 20 mg] 20 mg PO QID PRN 11/07/24 [History] Hx Tetanus, Diphtheria Vaccination/Date Given: Yes Hx Influenza Vaccination/Date Given: No Hx Pneumococcal Vaccination/Date Given: No Immunizations Up to Date: Yes Travel Risk - International Travel Have you traveled outside of the country in past 3 weeks: No - Emerging Infectious Disease Are you exhibiting symptoms associated with any current EIDs: No Symptoms: Cough: New Onset, Shortness of Breath, Other (Please Comment) Comment: chills - Past Medical History Pertinent Past Medical History: Yes Neurological History: Migraines ENT History: No Pertinent History Cardiac History: Peripheral Vascular Disease Respiratory History: No Pertinent History Endocrine Medical History: No Pertinent History Musculoskeletal History: Fibromyalgia GI Medical History: Gallbladder Disease History: Other Psycho-Social History: Bipolar Female Reproductive Disorders: Other Other Medical History: kidney stones, born with 1 kidney (left only), OVERDOSE MULTI TIMES, DRUG ABUSE - Past Surgical History Past Surgical History: Yes Neuro Surgical History: No Pertinent History Cardiac: No Pertinent History Respiratory: No Pertinent History Gastrointestinal: Bowel Surgery, Cholecystectomy Genitourinary: No Pertinent History Musculoskeletal: No Pertinent History Female Surgical History: Hysterectomy, Section, Tubal Ligation Other Surgical History: skin cancer removed twice, Umbilical hernia repair. ruptured hernia- colostomy and reversal. toe amputations to left foot, digits 2, 3, 4;. toe amputations to rt foot, digits 2, 3 Significant Family History: no pertinent family hx (No family history pertaining to this admission reported) - Female History Hx Last Menstrual Period: NONE Hx Now: No - Social History Smoking Status: Former smoker Exposure to second hand smoke: No Drug Use: methamphetamines - Social Determinants of Health Will the patient participate in the screening: Yes Do you worry about a steady place to live?: No Do you have any problems with any of the following?: No known problems In the past 12 months,have you had to go without utilities?: No Transportation Issues: No Has anyone in your support network made you feel unsafe?: No Have you or anyone in your house had to go w/o enough food: No - Nursing Vital Signs Nursing Vital Signs: Initial Vital Signs Temperature 97.0 F 04/26/25 09:27 Pulse Rate 70 04/26/25 09:27 Respiratory Rate 28 H 04/26/25 09:27 Blood Pressure 129/100 04/26/25 09:27 O2 Sat by Pulse Oximetry 97 04/26/25 09:27 Pain Scale Pain Intensity 9 - Physical Exam SpO2: 97 Ordered Tests: Active Orders 24 hr Category Date Time Status IV Insertion STAT Care 04/26/25 09:46 Active ABDOMEN AND PELVIS W/0 CONTRAS [CT] Stat Exams 04/26/25 09:50 Ordered CBC W DIFF Stat Lab 04/26/25 09:46 Ordered CMP Stat Lab 04/26/25 09:46 Ordered LIPASE Stat Lab 04/26/25 09:46 Ordered Lactic Acid Stat Lab 04/26/25 09:46 Ordered TROPONIN Q4H Lab 04/26/25 10:00 Ordered TROPONIN Q4H Lab 04/26/25 14:00 Ordered TROPONIN Q4H Lab 04/26/25 18:00 Ordered UA W/RFX UR CULTURE Stat Lab 04/26/25 09:50 Ordered Medication Summary Generic Name Dose Route Start Last Admin Trade Name Freq PRN Reason Stop Dose Admin Sodium Chloride 1,000 mls @ 100 mls/hr 04/26/25 10:00 Sodium Chloride 0.9% 1000 Ml IV 05/26/25 09:59 .Q10H OMAR - Departure Referrals: GASTON CAMPUZANO [Primary Care Provider, [facility]] - Follow up/PCP as directed
[2025-04-26] MEDS: TORAdol 30 mg Injection IV ONE (10:08)
[2025-04-26] MEDS ORDERED: TORAdol 30 mg Injection ONE (10:08)
[2025-04-26] MEDS ORDERED: Inapsine 5 MG/2 ML ONE (10:18)
[2025-04-26] MEDS: Inapsine 5 MG/2 ML IV ONE (10:18)
[2025-04-26 10:32] LABS: BASOPHIL % 0.2 % (0.1-1.2); Basophil (Absolute #) 0.03 x10^3/uL (0.01-0.08); Eosinophil (Absolute #) 0.06 x10^3/uL (0.04-0.36); Hematocrit 48.3 % (34.1-44.9); Hemoglobin 15.6 g/dL (11.2-15.7); IMMATURE GRAN # 0.05 x10^3u/L (0.001-0.031); IMMATURE GRAN % 0.4 % (0.001-0.429); Lymphocyte (Absolute #) 2.36 x10^3/uL (1.18-3.74); Mean Corpuscular Hemoglobin 31.2 pg (25.6-32.2); Mean Corpuscular Hgb Concent. 32.3 g/dL (32.2-35.5); Monocyte (Absolute #) 0.59 x10^3/uL (0.24-0.86); NUCLEATED RBC # 0.00 x10^3u/L (0.00-0.012); NUCLEATED RBC % 0.0 % (0.00-0.2); Platelet Count 614 x10^3/uL (182-369); Red Blood Count 5.00 x10^6/uL (3.93-5.22); White Blood Count 12.1 x10^3/uL (3.98-10.04)
[2025-04-26 10:53] LABS: Calcium 10.3 mg/dL (8.4-10.2); Creatinine 1 0.88 mg/dL (0.52-1.04); EST GLOMERULAR FILTRATION RATE 81.0 ML/MIN; Glucose 92.0 mg/dL (74-106); Potassium 4.1 mmol/L (3.5-5.1); SGOT/AST 20.0 U/L (14-36); SGPT/ALT 12.0 U/L (0-35); Total Protein 7.9 g/dL (6.3-8.2)
[2025-04-26 11:00] LABS: Carbon Dioxide 12.0 mmol/L (22-30)
[2025-04-26 11:00] LABS: Glucose, Urine Negative (Negative); Protein,Urine Dip 30 (Negative); RBC 51-100 /HPF (0-5); WBC 51-100 /HPF (0-5)
--- NOTE | 2025-04-26 11:04 | XRAY ---
CLINICAL HISTORY: pain COMPARISON: Comparison is made with 06/02/24 TECHNIQUE: Non-contrast CT of the abdomen and pelvis was performed, with the following protocol: axial images, and reconstructed coronal and sagittal images. No intravenous contrast was administered. One of the following dose reduction techniques was utilized for this exam: Automated exposure control, adjustment of the mA and/or kV according to patient size, and use of iterative reconstruction. FINDINGS: Abdomen: Liver: Normal in size, shape, and density. No focal lesions, cysts, or masses were identified. Gallbladder and Biliary System: Cholecystectomy. Pancreas: Pancreatic head, body, and tail are visualized and appear normal in size and density. No pancreatic masses or calcifications were noted. Spleen: Normal in size, shape, and density. Calcified granulomata. Kidneys and Adrenal Glands: Scattered left renal calculi, the largest in the lower pole measuring 4 mm. Absent right kidney. Cortical thickness is within normal limits. No renal calculi. Adrenal glands are unremarkable. Appendix: The appendix is normal in size without elodia appendiceal fat stranding, and without an appendicolith. No evidence of appendiceal abscess or perforation. Pelvis: Urinary Bladder: Normal in contour and wall thickness. No intraluminal lesions. Uterus: Hysterectomy. Ovaries: Not well visualized but no gross abnormalities noted. Vagina: Normal in contour and wall thickness. Peritoneal and Retroperitoneal Structures: No free fluid or abnormal fluid collections were identified within the abdomen or pelvis. No lymphadenopathy was noted. Bowel: The visualized bowel loops are normal in caliber and appearance. No evidence of bowel obstruction or wall thickening. Bones and Soft Tissues: Pelvic bones and soft tissues are unremarkable. No fractures or abnormal masses were identified. IMPRESSION: Nonobstructing left renal calculi. Calcified splenic granulomata. Cholecystectomy. Hysterectomy. Electronically Signed by: Yelitza Gonzalez MD. (04/26/2025 11:03:42 EST)
[2025-04-26] MEDS ORDERED: Hydromorphone 1 mg/ml Injection ONE (11:16)
[2025-04-26] MEDS: Hydromorphone 1 mg/ml Injection IV ONE (11:18)
--- NOTE | 2025-04-26 11:43 | ERPHSYRPT ---
- History of Present Illness Time Seen by Provider: 04/26/25 11:40 Source: patient Exam Limitations: no limitations Patient Subjective Stated Complaint: PT HERE FOR ABD PAIN KAND VOMITING. DENIES FEVER, Triage Nursing Assessment: PT ARRIVED PER EMS ALERT,MOANING OUT IN PAIN, ANXIUOS RESP EASY, SKIN W/D/P.ABD SOFT BUT TENDER TO TOUCH, MOVES ALL EXT WELL, NO EDEMA NOTED Physician History: Patient is a 50-year-old female history of migraine, peripheral vascular disease, former smoker, bipolar, fibromyalgia presents to our ED via EMS for evaluation of abdominal pain nausea and vomiting. No fever no trauma. Patient's symptoms started today. Symptoms have been constant. Patient appears very anxious. No associated chest pain or shortness of breath. Patient otherwise feels well and voices no other complaints or concerns at this time. Portions of this note were created with voice recognition technology. There may be grammatical, spelling, punctuation or sound alike errors Timing/Duration: today Severity: moderate Modifying Factors: Improves With: other Associated Symptoms: nausea, vomiting, abdominal pain Allergies/Adverse Reactions: Sulfa (Sulfonamide Antibiotics) Allergy (Intermediate, Verified 04/26/25 09:44) Vomiting bee venom protein (honey bee) Allergy (Verified 04/26/25 09:44) ketorolac [From Toradol] Allergy (Verified 04/26/25 10:14) methylprednisolone [From Solu-Medrol] Allergy (Verified 04/26/25 09:44) anger can take oral steroids, IV steroids she cannot take -- states she gets "roid rage" promethazine [From Phenergan] Allergy (Verified 04/26/25 09:44) sumatriptan [From Imitrex] Allergy (Verified 04/26/25 09:44) nitrofurantoin [From Macrobid] Adverse Reaction (Verified 04/26/25 09:44) tramadol Adverse Reaction (Verified 04/26/25 09:44) Nausea flu vaccine Allergy (Intermediate, Uncoded 04/26/25 09:44) Hoarseness of voice Home Medications: Gabapentin [Neurontin ] 600 mg PO QID PRN 08/27/24 [History] Dicyclomine HCl 20 mg [Bentyl 20 mg] 20 mg PO QID PRN 11/07/24 [History] Hx Tetanus, Diphtheria Vaccination/Date Given: Yes Hx Influenza Vaccination/Date Given: No Hx Pneumococcal Vaccination/Date Given: No Immunizations Up to Date: Yes Travel Risk - International Travel Have you traveled outside of the country in past 3 weeks: No - Emerging Infectious Disease Are you exhibiting symptoms associated with any current EIDs: No Symptoms: Cough: New Onset, Shortness of Breath, Other (Please Comment) Comment: chills - Review of Systems All Other Systems: Reviewed and Negative - Past Medical History Pertinent Past Medical History: Yes Neurological History: Migraines ENT History: No Pertinent History Cardiac History: Peripheral Vascular Disease Respiratory History: No Pertinent History Endocrine Medical History: No Pertinent History Musculoskeletal History: Fibromyalgia GI Medical History: Gallbladder Disease History: Other Psycho-Social History: Bipolar Female Reproductive Disorders: Other Other Medical History: kidney stones, born with 1 kidney (left only), OVERDOSE MULTI TIMES, DRUG ABUSE - Past Surgical History Past Surgical History: Yes Neuro Surgical History: No Pertinent History Cardiac: No Pertinent History Respiratory: No Pertinent History Gastrointestinal: Bowel Surgery, Cholecystectomy Genitourinary: No Pertinent History Musculoskeletal: No Pertinent History Female Surgical History: Hysterectomy, Section, Tubal Ligation Other Surgical History: skin cancer removed twice, Umbilical hernia repair. ruptured hernia- colostomy and reversal. toe amputations to left foot, digits 2, 3, 4;. toe amputations to rt foot, digits 2, 3 Significant Family History: no pertinent family hx (No family history pertaining to this admission reported) - Female History Hx Last Menstrual Period: NONE Hx Now: No - Social History Smoking Status: Former smoker Exposure to second hand smoke: No Drug Use: methamphetamines - Social Determinants of Health Will the patient participate in the screening: Yes Do you worry about a steady place to live?: No Do you have any problems with any of the following?: No known problems In the past 12 months,have you had to go without utilities?: No Transportation Issues: No Has anyone in your support network made you feel unsafe?: No Have you or anyone in your house had to go w/o enough food: No - Nursing Vital Signs Nursing Vital Signs: Initial Vital Signs Temperature 97.0 F 04/26/25 09:27 Pulse Rate 70 04/26/25 09:27 Respiratory Rate 28 H 04/26/25 09:27 Blood Pressure 129/100 04/26/25 09:27 O2 Sat by Pulse Oximetry 97 04/26/25 09:27 Pain Scale Pain Intensity 9 - Physical Exam General Appearance: mild distress, alert Eye Exam: PERRL/EOMI Ears, Nose, Throat Exam: normal ENT inspection, moist mucous membranes, dry mucous membranes Neck Exam: normal inspection, full range of motion Respiratory Exam: normal breath sounds, lungs clear, airway intact, No respiratory distress Cardiovascular Exam: regular rate/rhythm, normal heart sounds, normal peripheral pulses Gastrointestinal/Abdomen Exam: soft, normal bowel sounds, tenderness, other (Epigastric tenderness to palpation), No mass Back Exam: normal inspection, normal range of motion, No CVA tenderness, No vertebral tenderness Extremity Exam: normal inspection, normal range of motion, pelvis stable Neurologic Exam: alert, oriented x 3, cooperative, normal mood/affect, sensation nml, No motor deficits Skin Exam: normal color, warm, dry, No rash Lymphatic Exam: No adenopathy SpO2 Interpretation: normal SpO2: 90 O2 Delivery: Room Air - Course Nursing assessment & vital signs reviewed: Yes EKG Interpreted by Me: RATE (94), Sinus Rhythm, LAFB, NORMAL INTERVALS, NORMAL QRS - CT Exams Abdomen/Pelvis CT Interpretation: Tele-radiologist Report (Left renal nephrolithiasis otherwise no acute findings) Ordered Tests: Active Orders 24 hr Category Date Time Status IV Insertion STAT Care 04/26/25 09:46 Active ABDOMEN AND PELVIS W/0 CONTRAS [CT] Stat Exams 04/26/25 09:50 Completed CBC W DIFF Stat Lab 04/26/25 10:27 Completed CMP Stat Lab 04/26/25 10:27 Completed CULTURE,URINE Stat Lab 04/26/25 10:54 Received LIPASE Stat Lab 04/26/25 10:27 Completed Lactic Acid Stat Lab 04/26/25 09:46 Completed TROPONIN Q4H Lab 04/26/25 10:27 Completed TROPONIN Q4H Lab 04/26/25 14:00 Ordered TROPONIN Q4H Lab 04/26/25 18:00 Ordered UA W/RFX UR CULTURE Stat Lab 04/26/25 10:54 Completed Medication Summary Generic Name Dose Route Start Last Admin Trade Name Freq PRN Reason Stop Dose Admin Sodium Chloride 1,000 mls @ 100 mls/hr 04/26/25 10:00 04/26/25 10:09 Sodium Chloride 0.9% 1000 Ml IV 05/26/25 09:59 100 mls/hr .Q10H OMAR Administration Ceftriaxone Sodium 1 gm in 100 mls @ 200 mls/hr 04/26/25 11:46 Rocephin 1 Gm / 100 Ml Nacl IV 04/26/25 12:15 STAT ONE Discontinued Medications Generic Name Dose Route Start Last Admin Trade Name Yehuda PRN Reason Stop Dose Admin Droperidol 1.25 mg 04/26/25 10:15 04/26/25 10:18 Droperidol 5 Mg/2 Ml Vial IV 04/26/25 10:16 1.25 mg STAT ONE Administration Droperidol Confirm 04/26/25 10:18 Droperidol 5 Mg/2 Ml Vial Administered 04/26/25 10:19 Dose 5 mg .ROUTE .STK-MED ONE Hydromorphone HCl 0.5 mg 04/26/25 11:14 04/26/25 11:18 Hydromorphone 1 Mg/1ml Inj IV 04/26/25 11:15 0.5 mg STAT ONE Administration Hydromorphone HCl Confirm 04/26/25 11:16 Hydromorphone 1 Mg/1ml Inj Administered 04/26/25 11:17 Dose 1 mg .ROUTE .STK-MED ONE Ceftriaxone Sodium Confirm 04/26/25 11:49 Rocephin 1 Gm / 100 Ml Nacl Administered 04/26/25 11:50 Dose 1 gm in 100 mls @ ud IV .STK-MED ONE Ketorolac Tromethamine 30 mg 04/26/25 10:04 04/26/25 10:18 Ketorolac Tromethamine 30 Mg/Ml Inj IV 04/26/25 10:05 Not Given STAT ONE Ketorolac Tromethamine Confirm 04/26/25 10:08 Ketorolac Tromethamine 30 Mg/Ml Inj Administered 04/26/25 10:09 Dose 30 mg .ROUTE .STK-MED ONE Lab/Rad Data: Laboratory Result Diagrams 04/26/25 10:27 04/26/25 10:27 Laboratory Results 04/26/25 04/26/25 04/26/25 Range/Units 10:54 10:27 10:27 WBC (3.98-10.04) x10^3/uL RBC (3.93-5.22) x10^6/uL Hgb (11.2-15.7) g/dL Hct (34.1-44.9) % MCV (79.4-94.8) fL MCH (25.6-32.2) pg MCHC (32.2-35.5) g/dL RDW (11.7-14.4) % Plt Count (182-369) x10^3/uL MPV (9.4-12.3) fL Gran % (34.0-71.1) % Immature Gran % (Auto) (0.001-0.429) % Nucleat RBC Rel Count (0.00-0.2) % Eos # (Auto) (0.04-0.36) x10^3/uL Immature Gran # (Auto) (0.001-0.031) x10^3u/L Absolute Lymphs (auto) (1.18-3.74) x10^3/uL Absolute Monos (auto) (0.24-0.86) x10^3/uL Absolute Nucleated RBC (0.00-0.012) x10^3u/L Lymphocytes % (19.3-51.7) % Monocytes % (4.7-12.5) % Eosinophils % (0.7-5.8) % Basophils % (0.1-1.2) % Absolute Granulocytes (1.56-6.13) x10^3/uL Basophils # (0.01-0.08) x10^3/uL Sodium 139 (135-145) mmol/L Potassium 4.1 (3.5-5.1) mmol/L Chloride 110 H (98-107) mmol/L Carbon Dioxide 12 L* (22-30) mmol/L Anion Gap 21.2 H (5-15) MEQ/L BUN 15 (7-17) mg/dL Creatinine 0.88 (0.52-1.04) mg/dL Estimated GFR 81.0 ML/MIN Glucose 92 (74-106) mg/dL Lactic Acid (0.4-2.0) Calcium 10.3 H (8.4-10.2) mg/dL Total Bilirubin 0.60 (0.2-1.3) mg/dL AST 20 (14-36) U/L ALT 12 (0-35) U/L Alkaline Phosphatase 111 (38-126) U/L Troponin I < 0.012 (0.000-0.033) ng/mL Serum Total Protein 7.9 (6.3-8.2) g/dL Albumin 4.5 (3.5-5.0) g/dL Lipase 50 (23-300) U/L Urine Color Yellow (Yellow) Urine Appearance Turbid A (Clear) Urine pH 6.5 (4.6-8.0) Ur Specific [place] 1.025 (1.005-1.030) Urine Protein 30 (Negative) Urine Glucose (UA) Negative (Negative) mg/dL Urine Ketones 40 A (Negative) Urine Blood Moderate A (Negative) Urine Nitrite Negative (Negative) Urine Bilirubin Negative (Negative) Urine Urobilinogen 0.2 (0.2) mg/dL Ur Leukocyte Esterase Small A (Negative) U Hyaline Cast (Auto) 3-5 A (0-2) /LPF Urine Microscopic RBC 51-100 A (0-5) /HPF Urine Microscopic WBC 51-100 A (0-5) /HPF Ur Epithelial Cells Few (None Seen) /HPF Urine Bacteria Many A (None Seen) /HPF Urine Culture Reflexed YES (NO) 04/26/25 04/26/25 Range/Units 10:27 09:46 WBC 12.1 H (3.98-10.04) x10^3/uL RBC 5.00 (3.93-5.22) x10^6/uL Hgb 15.6 (11.2-15.7) g/dL Hct 48.3 H (34.1-44.9) % MCV 96.6 H (79.4-94.8) fL MCH 31.2 (25.6-32.2) pg MCHC 32.3 (32.2-35.5) g/dL RDW 13.6 (11.7-14.4) % Plt Count 614 H (182-369) x10^3/uL MPV 8.3 L (9.4-12.3) fL Gran % 74.5 H (34.0-71.1) % Immature Gran % (Auto) 0.4 (0.001-0.429) % Nucleat RBC Rel Count 0.0 (0.00-0.2) % Eos # (Auto) 0.06 (0.04-0.36) x10^3/uL Immature Gran # (Auto) 0.05 H (0.001-0.031) x10^3u/L Absolute Lymphs (auto) 2.36 (1.18-3.74) x10^3/uL Absolute Monos (auto) 0.59 (0.24-0.86) x10^3/uL Absolute Nucleated RBC 0.00 (0.00-0.012) x10^3u/L Lymphocytes % 19.5 (19.3-51.7) % Monocytes % 4.9 (4.7-12.5) % Eosinophils % 0.5 L (0.7-5.8) % Basophils % 0.2 (0.1-1.2) % Absolute Granulocytes 9.04 H (1.56-6.13) x10^3/uL Basophils # 0.03 (0.01-0.08) x10^3/uL Sodium (135-145) mmol/L Potassium (3.5-5.1) mmol/L Chloride (98-107) mmol/L Carbon Dioxide (22-30) mmol/L Anion Gap (5-15) MEQ/L BUN (7-17) mg/dL Creatinine (0.52-1.04) mg/dL Estimated GFR ML/MIN Glucose (74-106) mg/dL Lactic Acid 1.4 (0.4-2.0) Calcium (8.4-10.2) mg/dL Total Bilirubin (0.2-1.3) mg/dL AST (14-36) U/L ALT (0-35) U/L Alkaline Phosphatase (38-126) U/L Troponin I (0.000-0.033) ng/mL Serum Total Protein (6.3-8.2) g/dL Albumin (3.5-5.0) g/dL Lipase (23-300) U/L Urine Color (Yellow) Urine Appearance (Clear) Urine pH (4.6-8.0) Ur Specific [place] (1.005-1.030) Urine Protein (Negative) Urine Glucose (UA) (Negative) mg/dL Urine Ketones (Negative) Urine Blood (Negative) Urine Nitrite (Negative) Urine Bilirubin (Negative) Urine Urobilinogen (0.2) mg/dL Ur Leukocyte Esterase (Negative) U Hyaline Cast (Auto) (0-2) /LPF Urine Microscopic RBC (0-5) /HPF Urine Microscopic WBC (0-5) /HPF Ur Epithelial Cells (None Seen) /HPF Urine Bacteria (None Seen) /HPF Urine Culture Reflexed (NO) - Progress Progress: improved Progress Note: Patient is a 50-year-old female history of migraine, peripheral vascular disease, former smoker, bipolar, fibromyalgia presents to our ED via EMS for evaluation of abdominal pain nausea and vomiting. No fever no trauma. Patient's symptoms started today. Symptoms have been constant. Patient appears very anxious. No associated chest pain or shortness of breath. Physical exam reveals patient to be uncomfortable. Patient complaining of abdominal pain. Mild generalized abdominal tenderness. CT scan negative for acute intraabdominal pathology. UA significant for urinary tract infection, leukocyte esterase positive with a 51-100 pyuria. Leukocytosis of 12.1 thrombocytosis of 614. Bicarb of 12. Anion gap acidosis of 21. Patient received IM Zofran prior to arrival. Pain medication administered. Patient's nausea and vomiting improved with did not resolve. IV fluids infusing. Patient will be admitted for further evaluation and treatment of a urinary tract infection and metabolic acidosis. Plan of care discussed with patient. She agrees to admission at [facility] for further evaluation and treatment. History obtained from patient and EMS. Differential diagnosis includes gastroenteritis, pancreatitis, colitis, diverticulitis Complexity of problem addressed is moderate acute complicated. No critical care time. Complexity of data reviewed and analyzed is extensive. Test ordered test reviewed results analyzed and correlated clinically with history and physical exam. Management discussed with hospitalist Dr. Lemus accepts admission to observation. Risk of complication and or risk of morbidity/mortality of patient management is high. Patient requires hospitalization for further evaluation and treatment. Vital stable. Time spent to admit patient is approximately 20 minutes. Plan of care established for shared decision making. No social determinants of health present to impede follow-up. Dr. Lemus accepts admission at 12:03 Portions of this note were created with voice recognition technology. There may be grammatical, spelling, punctuation or sound alike errors 04/26/25 11:50 04/26/25 12:03 Counseled pt/family regarding: lab results, diagnosis, rad results - Departure Departure Disposition: Observation Clinical Impression: Urinary tract infection, Leukocytosis, Nausea and vomiting, Thrombocytosis, High anion gap metabolic acidosis, Urinary (tract) obstruction, Abdominal pain, Generalized weakness Condition: Stable Critical Care Time: No Referrals: GASTON CAMPUZANO [Primary Care Provider, [facility]] - Follow up/PCP as directed
[2025-04-26] MEDS ORDERED: ROCEPHIN 1 GM / 100 ML NaCl 1 GM/100 ML IVPB IV ONE (11:49)
[2025-04-26] MEDS: ROCEPHIN 1 GM / 100 ML NaCl 1 GM/100 ML IVPB IV ONE (11:49)
--- NOTE | 2025-04-26 12:27 | PCM.HP ---
History of Present Illness - Chief Complaint Chief Complaint: n/v abdominal pain Date: 04/26/25 History of Present Illness: is a 50 year old female with a pmhx of migraines, peripheral vascular disease, bipolar disorder, fibromyalgia, and former tobacco use who presented on 04/26/25 with complaints of two weeks of persistent vomiting and worsening abdominal pain. Note she reported to ED pain started today. She describes the pain as mid-abdominal with radiation to the right flank, characterized as stabbing, cramping, and burning, rated 9 out of 10, and worsened with movement, breathing, and vomiting, with partial relief from pain medication. She is unable to tolerate oral intake. On exam, she appeared uncomfortable and nauseated. Oral exam showed a white coating on the tongue, which the patient reports is related to her known geographic tongue. Denies fever,cough, sob, cp, BOONE, dizziness, N/V/D. Multiple previous admissions for drug overdose. On arrival, vitals stable. Labs remarkable for leukocytosis at 12.1 with metabolic acidosis reflected by low carbon dioxide at 12 and elevated anion gap at 21.2. Chloride was elevated at 110 and calcium mildly elevated at 10.3. Lactic acid and lipase were normal. Urinalysis showed leukocytes, many bacteria, hyaline casts, significant microscopic hematuria, and marked pyuria concerning for urinary tract infection. CT abdomen and pelvis showed non-obstructing left renal calculi, calcified splenic granulomas, and postoperative changes from prior cholecystectomy and hysterectomy without acute intra-abdominal pathology. She received ceftriaxone, ketorolac, hydromorphone, and droperidol in the emerg ency department. - Review of Systems Constitutional: Weakness Eyes: No Symptoms Ears, Nose, & Throat: No Symptoms Respiratory: No Symptoms Cardiac: No Symptoms Abdominal/Gastrointestinal: Abdominal Pain, Nausea, Vomiting Genitourinary Symptoms: No Symptoms Musculoskeletal: No Symptoms Skin: No Symptoms Neurological: No Symptoms Psychological: No Symptoms Endocrine: No Symptoms Hematologic/Lymphatic: No Symptoms Immunological/Allergic: No Symptoms Medications & Allergies Home Medications: Home Medication List Gabapentin [Neurontin ] 600 mg PO QID PRN 08/27/24 [History Confirmed ] Dicyclomine HCl 20 mg [Bentyl 20 mg] 20 mg PO QID PRN 11/07/24 [History Confirmed 04/26/25] Allergies/Adverse Reactions: Allergies Allergy/AdvReac Type Severity Reaction Status Date / Time Sulfa (Sulfonamide Allergy Intermediate Vomiting Verified 04/26/25 09:44 Antibiotics) bee venom protein (honey bee) Allergy Verified 04/26/25 09:44 ketorolac [From Toradol] Allergy Verified 04/26/25 10:14 methylprednisolone Allergy anger Verified 04/26/25 09:44 [From Solu-Medrol] promethazine [From Phenergan] Allergy Verified 04/26/25 09:44 sumatriptan [From Imitrex] Allergy Verified 04/26/25 09:44 nitrofurantoin AdvReac Verified 04/26/25 09:44 [From Macrobid] tramadol AdvReac Nausea Verified 04/26/25 09:44 flu vaccine Allergy Intermediate Hoarseness Uncoded 04/26/25 09:44 of voice - Past Medical History Past Medical History: Yes Neurological History: Migraines ENT History: No Pertinent History Cardiac History: Peripheral Vascular Disease Respiratory History: No Pertinent History Endocrine Medical History: No Pertinent History Musculoskelatal History: Fibromyalgia GI Medical History: Gallbladder Disease History: Other Pyscho-Social History: Bipolar Reproductive Disorders: Other Comment: kidney stones, born with 1 kidney (left only), OVERDOSE MULTI TIMES, DRUG ABUSE - Female History Hx Last Menstrual Period: NONE Are you now?: No - Past Surgical History Past Surgical History: Yes Neuro Surgical History: No Pertinent History Cardiac History: No Pertinent History Respiratory Surgery: No Pertinent History GI Surgical History: Bowel Surgery, Cholecystectomy Genitourinary Surgical Hx: No Pertinent History Musculskeletal Surgical Hx: No Pertinent History Female Surgical History: Hysterectomy, Section, Tubal Ligation Other Surgical History: skin cancer removed twice, Umbilical hernia repair. ruptured hernia- colostomy and reversal. toe amputations to left foot, digits 2, 3, 4;. toe amputations to rt foot, digits 2, 3 Significant Family History: no pertinent family hx (No family history pertaining to this admission reported) - Social History Smoking Status: Former smoker How long have you smoked: 13 YEARS Exposure to second hand smoke: No Alcohol: None Drug Use: methamphetamines - Social Determinants of Health Will the patient participate in the screening: Yes Do you worry about a steady place to live?: No Do you have any problems with any of the following?: No known problems In the past 12 months,have you had to go without utilities?: No Have you or anyone in your house had to go without enough: No Transportation Issues: No Has anyone in your support network made you feel unsafe?: No Does the patient want assistance with any of the above?: No - Physical Exam Vital Signs: Vital Signs - 24 hr Temp Pulse Resp BP BP Pulse Ox 04/26/25 12:06 90 L 04/26/25 12:00 84 12 107/77 99 04/26/25 11:30 84 12 102/83 99 04/26/25 11:00 105 H 15 104/82 90 L 04/26/25 10:50 115 H 32 H 97 04/26/25 10:45 110 H 21 92 L 04/26/25 10:20 104 H 19 98 04/26/25 10:10 94 H 16 99 04/26/25 10:02 98 H 18 99 04/26/25 09:27 97.0 F 70 28 H 129/100 97 General Appearance: no apparent distress Neurologic Exam: alert, oriented x 3, cooperative Eye Exam: PERRL/EOMI Ears, Nose, Throat Exam: normal ENT inspection Neck Exam: normal inspection Respiratory Exam: normal breath sounds, lungs clear Cardiovascular Exam: regular rate/rhythm, normal heart sounds Gastrointestinal/Abdomen Exam: soft, normal bowel sounds, tenderness (mid abdomen/RUQ) Pelvic Exam: not done Rectal Exam: deferred Back Exam: normal inspection Extremity Exam: normal inspection Results - Labs Lab/Micro Results: Lab Results-Last 24 Hours 04/26/25 04/26/25 04/26/25 Range/Units 09:46 10:27 10:27 WBC 12.1 H (3.98-10.04) x10^3/uL RBC 5.00 (3.93-5.22) x10^6/uL Hgb 15.6 (11.2-15.7) g/dL Hct 48.3 H (34.1-44.9) % MCV 96.6 H (79.4-94.8) fL MCH 31.2 (25.6-32.2) pg MCHC 32.3 (32.2-35.5) g/dL RDW 13.6 (11.7-14.4) % Plt Count 614 H (182-369) x10^3/uL MPV 8.3 L (9.4-12.3) fL Gran % 74.5 H (34.0-71.1) % Immature Gran % (Auto) 0.4 (0.001-0.429) % Nucleat RBC Rel Count 0.0 (0.00-0.2) % Eos # (Auto) 0.06 (0.04-0.36) x10^3/uL Immature Gran # (Auto) 0.05 H (0.001-0.031) x10^3u/L Absolute Lymphs (auto) 2.36 (1.18-3.74) x10^3/uL Absolute Monos (auto) 0.59 (0.24-0.86) x10^3/uL Absolute Nucleated RBC 0.00 (0.00-0.012) x10^3u/L Lymphocytes % 19.5 (19.3-51.7) % Monocytes % 4.9 (4.7-12.5) % Eosinophils % 0.5 L (0.7-5.8) % Basophils % 0.2 (0.1-1.2) % Absolute Granulocytes 9.04 H (1.56-6.13) x10^3/uL Basophils # 0.03 (0.01-0.08) x10^3/uL Sodium 139 (135-145) mmol/L Potassium 4.1 (3.5-5.1) mmol/L Chloride 110 H (98-107) mmol/L Carbon Dioxide 12 L* (22-30) mmol/L Anion Gap 21.2 H (5-15) MEQ/L BUN 15 (7-17) mg/dL Creatinine 0.88 (0.52-1.04) mg/dL Estimated GFR 81.0 ML/MIN Glucose 92 (74-106) mg/dL Lactic Acid 1.4 (0.4-2.0) Calcium 10.3 H (8.4-10.2) mg/dL Total Bilirubin 0.60 (0.2-1.3) mg/dL AST 20 (14-36) U/L ALT 12 (0-35) U/L Alkaline Phosphatase 111 (38-126) U/L Troponin I (0.000-0.033) ng/mL Serum Total Protein 7.9 (6.3-8.2) g/dL Albumin 4.5 (3.5-5.0) g/dL Lipase 50 (23-300) U/L Urine Color (Yellow) Urine Appearance (Clear) Urine pH (4.6-8.0) Ur Specific [place] (1.005-1.030) Urine Protein (Negative) Urine Glucose (UA) (Negative) mg/dL Urine Ketones (Negative) Urine Blood (Negative) Urine Nitrite (Negative) Urine Bilirubin (Negative) Urine Urobilinogen (0.2) mg/dL Ur Leukocyte Esterase (Negative) U Hyaline Cast (Auto) (0-2) /LPF Urine Microscopic RBC (0-5) /HPF Urine Microscopic WBC (0-5) /HPF Ur Epithelial Cells (None Seen) /HPF Urine Bacteria (None Seen) /HPF Urine Culture Reflexed (NO) 04/26/25 04/26/25 Range/Units 10:27 10:54 WBC (3.98-10.04) x10^3/uL RBC (3.93-5.22) x10^6/uL Hgb (11.2-15.7) g/dL Hct (34.1-44.9) % MCV (79.4-94.8) fL MCH (25.6-32.2) pg MCHC (32.2-35.5) g/dL RDW (11.7-14.4) % Plt Count (182-369) x10^3/uL MPV (9.4-12.3) fL Gran % (34.0-71.1) % Immature Gran % (Auto) (0.001-0.429) % Nucleat RBC Rel Count (0.00-0.2) % Eos # (Auto) (0.04-0.36) x10^3/uL Immature Gran # (Auto) (0.001-0.031) x10^3u/L Absolute Lymphs (auto) (1.18-3.74) x10^3/uL Absolute Monos (auto) (0.24-0.86) x10^3/uL Absolute Nucleated RBC (0.00-0.012) x10^3u/L Lymphocytes % (19.3-51.7) % Monocytes % (4.7-12.5) % Eosinophils % (0.7-5.8) % Basophils % (0.1-1.2) % Absolute Granulocytes (1.56-6.13) x10^3/uL Basophils # (0.01-0.08) x10^3/uL Sodium (135-145) mmol/L Potassium (3.5-5.1) mmol/L Chloride (98-107) mmol/L Carbon Dioxide (22-30) mmol/L Anion Gap (5-15) MEQ/L BUN (7-17) mg/dL Creatinine (0.52-1.04) mg/dL Estimated GFR ML/MIN Glucose (74-106) mg/dL Lactic Acid (0.4-2.0) Calcium (8.4-10.2) mg/dL Total Bilirubin (0.2-1.3) mg/dL AST (14-36) U/L ALT (0-35) U/L Alkaline Phosphatase (38-126) U/L Troponin I < 0.012 (0.000-0.033) ng/mL Serum Total Protein (6.3-8.2) g/dL Albumin (3.5-5.0) g/dL Lipase (23-300) U/L Urine Color Yellow (Yellow) Urine Appearance Turbid A (Clear) Urine pH 6.5 (4.6-8.0) Ur Specific [place] 1.025 (1.005-1.030) Urine Protein 30 (Negative) Urine Glucose (UA) Negative (Negative) mg/dL Urine Ketones 40 A (Negative) Urine Blood Moderate A (Negative) Urine Nitrite Negative (Negative) Urine Bilirubin Negative (Negative) Urine Urobilinogen 0.2 (0.2) mg/dL Ur Leukocyte Esterase Small A (Negative) U Hyaline Cast (Auto) 3-5 A (0-2) /LPF Urine Microscopic RBC 51-100 A (0-5) /HPF Urine Microscopic WBC 51-100 A (0-5) /HPF Ur Epithelial Cells Few (None Seen) /HPF Urine Bacteria Many A (None Seen) /HPF Urine Culture Reflexed YES (NO) - Radiology Impressions Radiology Exams & Impressions: Radiology Procedures Category Date Time Status ABDOMEN AND PELVIS W/0 CONTRAS [CT] Stat Exams 04/26/25 09:50 Completed Assessment/Plan (1) UTI (urinary tract infection) Current Visit: Yes Status: Acute Assessment & Plan: -UA with leukocytes, many bacteria, marked pyuria, and hematuria -Leukocytosis with wbc at 12.1 -Ceftriaxone given in ED will continue- follow cultures Code(s): N39.0 - URINARY TRACT INFECTION, SITE NOT SPECIFIED (2) Nausea & vomiting Current Visit: Yes Status: Acute Assessment & Plan: -Ongoing symptomatic vomiting limiting intake -Zofran as needed -Continue IVF -Advance diet as tolerated Code(s): R11.2 - NAUSEA WITH VOMITING, UNSPECIFIED (3) Leukocytosis Current Visit: Yes Status: Acute Assessment & Plan: -Most likely 2/2 to UTI --CT abdomen with no acute process -CXR -lacid acid WNL -Blood cultures x 2 -Ucult pending -Continue Ceftriaxone Code(s): D72.829 - ELEVATED WHITE BLOOD CELL COUNT, UNSPECIFIED (4) Abdominal pain Current Visit: Yes Status: Acute Assessment & Plan: -Likely multifactorial from UTI, renal stone, dehydration, and acidosis -CT negative for surgical cause, lipase normal -see treatment for UTI above Code(s): R10.9 - UNSPECIFIED ABDOMINAL PAIN (5) High anion gap metabolic acidosis Current Visit: Yes Status: Acute Assessment & Plan: -Low bicarbonate with elevated anion gap, lactic acid normal -Likely due to vomiting, dehydration, and acute infection -Continue bicarb drip -BMP q4h Code(s): E87.29 - OTHER ACIDOSIS (6) Renal calculi Current Visit: Yes Status: Acute Assessment & Plan: -Seen on CT without hydronephrosis or obstruction -Manage conservatively with hydration and pain control -Monitor renal function and symptoms (7) PVD (peripheral vascular disease) Current Visit: Yes Status: Acute Assessment & Plan: -continue home regimen Code(s): I73.9 - PERIPHERAL VASCULAR DISEASE, UNSPECIFIED (8) Fibromyalgia Current Visit: Yes Status: Acute Assessment & Plan: -continue home regimen (9) Migraines Current Visit: Yes Status: Acute Assessment & Plan: -continue home meds VTE: lovenox PPI: protonix Dispo: 1-2 days Code Status: SCO Plan of care time spent > 40 mins Code(s): G43.909 - MIGRAINE, UNSP, NOT INTRACTABLE, WITHOUT STATUS MIGRAINOSUS (10) Bipolar 1 disorder Current Visit: No Status: Chronic Code(s): F31.9 - BIPOLAR DISORDER, UNSPECIFIED
[2025-04-26] MEDS ORDERED: TYLENOL 325 MG PO PRN (12:53)
[2025-04-26] MEDS: PROTONIX 40 MG IV IV SCH (13:44)
[2025-04-26] MEDS: ENOXAPARIN SODIUM SQ SCH (13:44)
[2025-04-26 13:45] LABS: Calcium 9.7 mg/dL (8.4-10.2); Creatinine 1 0.77 mg/dL (0.52-1.04); EST GLOMERULAR FILTRATION RATE 95.1 ML/MIN; Glucose 80.0 mg/dL (74-106); Potassium 4.0 mmol/L (3.5-5.1)
[2025-04-26] MEDS: Sodium Bicarbonate 50 MEQ/50 ML VIAL*** 150 MEQ in Dextrose 5%/Water IV Soln. 1000 ML 1... IV SCH (13:45)
[2025-04-26 13:48] LABS: Carbon Dioxide 11.0 mmol/L (22-30)
--- NOTE | 2025-04-26 13:49 | XRAY ---
CLINICAL HISTORY: leukocytosis COMPARISON: CT 08/02/2023. TECHNIQUE: An X-ray image of the chest was obtained in AP projection. FINDINGS: Pulmonary Parenchyma: The lungs are clear bilaterally. No evidence of consolidation, collapse, or focal opacities. No pulmonary nodules are identified on X-ray. No evidence of pleural effusion or pleural thickening. Heart and Mediastinum: The heart size and shape are normal. No mediastinal widening or masses. No hilar or mediastinal lymphadenopathy. Bony Thorax: The bony thorax appears intact without fractures or deformities. Soft Tissues: The soft tissues overlying the chest wall are unremarkable. IMPRESSION: No acute cardiopulmonary abnormalities are identified. (unchanged) Electronically Signed by: Luis E Deshpande MD. (04/26/2025 13:47:13 EST)
[2025-04-26 14:02] LABS: Amphetamine,Urine NEGATIVE (NEGATIVE); Barbiturate,Urine NEGATIVE (NEGATIVE); Benzodiazepine,Urine NEGATIVE (NEGATIVE); Cocaine,Urine NEGATIVE (NEGATIVE); Methadone,Urine NEGATIVE (NEGATIVE); Opiate,Urine NEGATIVE (NEGATIVE); PCP,Urine NEGATIVE (NEGATIVE); THC,Urine NEGATIVE (NEGATIVE)
[2025-04-26] MEDS: Hydromorphone 1 mg/ml Injection IV PRN (15:21)
[2025-04-26] MEDS: Zofran 4 MG/2 ML VIAL IV PRN (15:22)
[2025-04-26 18:13] LABS: Calcium 9.5 mg/dL (8.4-10.2); Creatinine 1 0.73 mg/dL (0.52-1.04); EST GLOMERULAR FILTRATION RATE 101.4 ML/MIN; Glucose 89.0 mg/dL (74-106); Potassium 3.8 mmol/L (3.5-5.1)
[2025-04-26 18:21] LABS: Carbon Dioxide 13.0 mmol/L (22-30)
[2025-04-26 22:15] LABS: Calcium 9.0 mg/dL (8.4-10.2); Creatinine 1 0.81 mg/dL (0.52-1.04); EST GLOMERULAR FILTRATION RATE 89.5 ML/MIN; Glucose 97.0 mg/dL (74-106); Potassium 3.3 mmol/L (3.5-5.1)
[2025-04-26 22:29] LABS: Carbon Dioxide 15.0 mmol/L (22-30)
[2025-04-27 05:06] LABS: BASOPHIL % 0.6 % (0.1-1.2); Basophil (Absolute #) 0.04 x10^3/uL (0.01-0.08); Eosinophil (Absolute #) 0.20 x10^3/uL (0.04-0.36); Hematocrit 38.1 % (34.1-44.9); Hemoglobin 12.3 g/dL (11.2-15.7); IMMATURE GRAN # 0.03 x10^3u/L (0.001-0.031); IMMATURE GRAN % 0.4 % (0.001-0.429); Lymphocyte (Absolute #) 3.12 x10^3/uL (1.18-3.74); Mean Corpuscular Hemoglobin 30.3 pg (25.6-32.2); Mean Corpuscular Hgb Concent. 32.3 g/dL (32.2-35.5); Monocyte (Absolute #) 0.59 x10^3/uL (0.24-0.86); NUCLEATED RBC # 0.00 x10^3u/L (0.00-0.012); NUCLEATED RBC % 0.0 % (0.00-0.2); Platelet Count 508 x10^3/uL (182-369); Red Blood Count 4.06 x10^6/uL (3.93-5.22); White Blood Count 7.2 x10^3/uL (3.98-10.04)
[2025-04-27 05:13] LABS: Calcium 8.7 mg/dL (8.4-10.2); Carbon Dioxide 22.0 mmol/L (22-30); Creatinine 1 0.76 mg/dL (0.52-1.04); EST GLOMERULAR FILTRATION RATE 96.6 ML/MIN; Glucose 101.0 mg/dL (74-106); SGOT/AST 19.0 U/L (14-36); SGPT/ALT 11.0 U/L (0-35); Total Protein 6.3 g/dL (6.3-8.2)
[2025-04-27 05:32] LABS: Potassium 3.0 mmol/L (3.5-5.1)
--- NOTE | 2025-04-27 05:36 | PCM.NOTE ---
Date and Time: 04/27/25 0533 Subjective Assessment: is a 50 year old female with a pmhx of migraines, peripheral vascular disease, bipolar disorder, fibromyalgia, and former tobacco use who presented on 04/26/25 with complaints of two weeks of persistent vomiting and worsening abdominal pain. Note she reported to ED pain started today. She describes the pain as mid-abdominal with radiation to the right flank, characterized as stabbing, cramping, and burning, rated 9 out of 10, and worsened with movement, breathing, and vomiting, with partial relief from pain medication. She is unable to tolerate oral intake. On exam, she appeared uncomfortable and nauseated. Oral exam showed a white coating on the tongue, which the patient reports is related to her known geographic tongue. Denies fever,cough, sob, cp, BOONE, dizziness, N/V/D. Multiple previous admissions for drug overdose. On arrival, vitals stable. Labs remarkable for leukocytosis at 12.1 with metabolic acidosis reflected by low carbon dioxide at 12 and elevated anion gap at 21.2. Chloride was elevated at 110 and calcium mildly elevated at 10.3. Lactic acid and lipase were normal. Urinalysis showed leukocytes, many bacteria, hyaline casts, significant microscopic hematuria, and marked pyuria concerning for urinary tract infection. CT abdomen and pelvis showed non-obstructing left renal calculi, calcified splenic granulomas, and postoperative changes from prior cholecystectomy and hysterectomy without acute intra-abdominal pathology. She received ceftriaxone, ketorolac, hydromorphone, and droperidol in the emergency department. 04/27/25: Met with patient bedside. She continues to report severe mid-epigastric pain with radiation into the right back, now described as a constant burning sensation rated 10 out of 10. Nausea and vomiting have resolved; however, she reports new-onset black stools this morning, raising concern for possible upper gastrointestinal bleeding. Her previously noted metabolic acidosis has resolved. Morning labs reveal hypokalemia and hypomagnesemia, which are being actively repleted. Oral examination again demonstrates a thick white coating on the tongue, which the patient reports is chronic and consistent with her history of geographic tongue, though due to discomfort and possible superimposed irritation, Svetlana magic mouthwash has been added. Given the persistence and severity of epigastric pain, the report of melena, and the absence of a clear explanation on CT imaging, General Surgery has been consulted for further evaluation and consideration of diagnostic EGD with possible colonoscopy. Urine culture is growing gram-positive organisms with identification pending, and ceftriaxone is being continued at this time. - Review of Systems Constitutional: Weakness Eyes: No Symptoms Ears, Nose, & Throat: No Symptoms Respiratory: No Symptoms Cardiac: No Symptoms Abdominal/Gastrointestinal: Abdominal Pain, Melena Genitourinary Symptoms: No Symptoms Musculoskeletal: No Symptoms Skin: No Symptoms Neurological: No Symptoms Psychological: No Symptoms Endocrine: No Symptoms Hematologic/Lymphatic: No Symptoms Immunological/Allergic: No Symptoms Objective Exam General Appearance: no apparent distress Neurologic Exam: alert, oriented x 3, cooperative Skin Exam: normal color Eye Exam: PERRL Ears, Nose, Throat Exam: normal ENT inspection Neck Exam: normal inspection Respiratory Exam: normal breath sounds, lungs clear Cardiovascular Exam: regular rate/rhythm, normal heart sounds Gastrointestinal/Abdomen Exam: soft, normal bowel sounds, tenderness (TTP mid epigastric to right back) Extremity Exam: normal inspection Back Exam: normal inspection Pelvic Exam: deferred Rectal Exam: deferred Objective Data Vital Signs: Vital Signs - 24 hr Temp Pulse Resp BP BP Pulse Ox 04/27/25 04:00 98.1 F 82 18 98/63 95 04/26/25 23:48 98.3 F 99 H 18 111/63 94 L 04/26/25 20:00 98.0 F 96 H 18 89/66 92 L 04/26/25 16:00 98.0 F 88 16 100/74 96 04/26/25 13:40 93 L 04/26/25 13:07 98.1 F 88 17 104/71 93 L 04/26/25 12:06 90 L 04/26/25 12:00 84 12 107/77 99 04/26/25 11:30 84 12 102/83 99 04/26/25 11:00 105 H 15 104/82 90 L 04/26/25 10:50 115 H 32 H 97 04/26/25 10:45 110 H 21 92 L 04/26/25 10:20 104 H 19 98 04/26/25 10:10 94 H 16 99 04/26/25 10:02 98 H 18 99 04/26/25 09:27 97.0 F 70 28 H 129/100 97 Pain Assessment - Last Documented Pain Intensity 9 Pain Scale Used 0-10 Pain Scale Intake and Output: Intake & Output 12/07/25 12/08/25 12/09/25 12/10/25 11:59 11:59 11:59 11:59 Intake Total 1492 Balance 1492 Weight 59.2 kg 60 kg Lab Results: Lab Results-Last 24 Hours 04/26/25 04/26/25 04/26/25 Range/Units 09:46 10:27 10:27 WBC 12.1 H (3.98-10.04) x10^3/uL RBC 5.00 (3.93-5.22) x10^6/uL Hgb 15.6 (11.2-15.7) g/dL Hct 48.3 H (34.1-44.9) % MCV 96.6 H (79.4-94.8) fL MCH 31.2 (25.6-32.2) pg MCHC 32.3 (32.2-35.5) g/dL RDW 13.6 (11.7-14.4) % Plt Count 614 H (182-369) x10^3/uL MPV 8.3 L (9.4-12.3) fL Gran % 74.5 H (34.0-71.1) % Immature Gran % (Auto) 0.4 (0.001-0.429) % Nucleat RBC Rel Count 0.0 (0.00-0.2) % Eos # (Auto) 0.06 (0.04-0.36) x10^3/uL Immature Gran # (Auto) 0.05 H (0.001-0.031) x10^3u/L Absolute Lymphs (auto) 2.36 (1.18-3.74) x10^3/uL Absolute Monos (auto) 0.59 (0.24-0.86) x10^3/uL Absolute Nucleated RBC 0.00 (0.00-0.012) x10^3u/L Lymphocytes % 19.5 (19.3-51.7) % Monocytes % 4.9 (4.7-12.5) % Eosinophils % 0.5 L (0.7-5.8) % Basophils % 0.2 (0.1-1.2) % Absolute Granulocytes 9.04 H (1.56-6.13) x10^3/uL Basophils # 0.03 (0.01-0.08) x10^3/uL Sodium 139 (135-145) mmol/L Potassium 4.1 (3.5-5.1) mmol/L Chloride 110 H (98-107) mmol/L Carbon Dioxide 12 L* (22-30) mmol/L Anion Gap 21.2 H (5-15) MEQ/L BUN 15 (7-17) mg/dL Creatinine 0.88 (0.52-1.04) mg/dL Estimated GFR 81.0 ML/MIN Glucose 92 (74-106) mg/dL Lactic Acid 1.4 (0.4-2.0) Calcium 10.3 H (8.4-10.2) mg/dL Total Bilirubin 0.60 (0.2-1.3) mg/dL AST 20 (14-36) U/L ALT 12 (0-35) U/L Alkaline Phosphatase 111 (38-126) U/L Troponin I (0.000-0.033) ng/mL Serum Total Protein 7.9 (6.3-8.2) g/dL Albumin 4.5 (3.5-5.0) g/dL Lipase 50 (23-300) U/L Urine Color (Yellow) Urine Appearance (Clear) Urine pH (4.6-8.0) Ur Specific Hunt (1.005-1.030) Urine Protein (Negative) Urine Glucose (UA) (Negative) mg/dL Urine Ketones (Negative) Urine Blood (Negative) Urine Nitrite (Negative) Urine Bilirubin (Negative) Urine Urobilinogen (0.2) mg/dL Ur Leukocyte Esterase (Negative) U Hyaline Cast (Auto) (0-2) /LPF Urine Microscopic RBC (0-5) /HPF Urine Microscopic WBC (0-5) /HPF Ur Epithelial Cells (None Seen) /HPF Urine Bacteria (None Seen) /HPF Urine Culture Reflexed (NO) Urine Opiates Level (NEGATIVE) Ur Methadone (NEGATIVE) Urine Barbiturates (NEGATIVE) Ur Phencyclidine (PCP) (NEGATIVE) Urine Amphetamine (NEGATIVE) U Benzodiazepine Level (NEGATIVE) Urine Cocaine (NEGATIVE) Urine Marijuana (THC) (NEGATIVE) 04/26/25 04/26/25 04/26/25 Range/Units 10:27 10:54 13:00 WBC (3.98-10.04) x10^3/uL RBC (3.93-5.22) x10^6/uL Hgb (11.2-15.7) g/dL Hct (34.1-44.9) % MCV (79.4-94.8) fL MCH (25.6-32.2) pg MCHC (32.2-35.5) g/dL RDW (11.7-14.4) % Plt Count (182-369) x10^3/uL MPV (9.4-12.3) fL Gran % (34.0-71.1) % Immature Gran % (Auto) (0.001-0.429) % Nucleat RBC Rel Count (0.00-0.2) % Eos # (Auto) (0.04-0.36) x10^3/uL Immature Gran # (Auto) (0.001-0.031) x10^3u/L Absolute Lymphs (auto) (1.18-3.74) x10^3/uL Absolute Monos (auto) (0.24-0.86) x10^3/uL Absolute Nucleated RBC (0.00-0.012) x10^3u/L Lymphocytes % (19.3-51.7) % Monocytes % (4.7-12.5) % Eosinophils % (0.7-5.8) % Basophils % (0.1-1.2) % Absolute Granulocytes (1.56-6.13) x10^3/uL Basophils # (0.01-0.08) x10^3/uL Sodium (135-145) mmol/L Potassium (3.5-5.1) mmol/L Chloride (98-107) mmol/L Carbon Dioxide (22-30) mmol/L Anion Gap (5-15) MEQ/L BUN (7-17) mg/dL Creatinine (0.52-1.04) mg/dL Estimated GFR ML/MIN Glucose (74-106) mg/dL Lactic Acid (0.4-2.0) Calcium (8.4-10.2) mg/dL Total Bilirubin (0.2-1.3) mg/dL AST (14-36) U/L ALT (0-35) U/L Alkaline Phosphatase (38-126) U/L Troponin I < 0.012 (0.000-0.033) ng/mL Serum Total Protein (6.3-8.2) g/dL Albumin (3.5-5.0) g/dL Lipase (23-300) U/L Urine Color Yellow (Yellow) Urine Appearance Turbid A (Clear) Urine pH 6.5 (4.6-8.0) Ur Specific Hunt 1.025 (1.005-1.030) Urine Protein 30 (Negative) Urine Glucose (UA) Negative (Negative) mg/dL Urine Ketones 40 A (Negative) Urine Blood Moderate A (Negative) Urine Nitrite Negative (Negative) Urine Bilirubin Negative (Negative) Urine Urobilinogen 0.2 (0.2) mg/dL Ur Leukocyte Esterase Small A (Negative) U Hyaline Cast (Auto) 3-5 A (0-2) /LPF Urine Microscopic RBC 51-100 A (0-5) /HPF Urine Microscopic WBC 51-100 A (0-5) /HPF Ur Epithelial Cells Few (None Seen) /HPF Urine Bacteria Many A (None Seen) /HPF Urine Culture Reflexed YES (NO) Urine Opiates Level NEGATIVE (NEGATIVE) Ur Methadone NEGATIVE (NEGATIVE) Urine Barbiturates NEGATIVE (NEGATIVE) Ur Phencyclidine (PCP) NEGATIVE (NEGATIVE) Urine Amphetamine NEGATIVE (NEGATIVE) U Benzodiazepine Level NEGATIVE (NEGATIVE) Urine Cocaine NEGATIVE (NEGATIVE) Urine Marijuana (THC) NEGATIVE (NEGATIVE) 04/26/25 04/26/25 04/26/25 Range/Units 13:20 13:20 17:05 WBC (3.98-10.04) x10^3/uL RBC (3.93-5.22) x10^6/uL Hgb (11.2-15.7) g/dL Hct (34.1-44.9) % MCV (79.4-94.8) fL MCH (25.6-32.2) pg MCHC (32.2-35.5) g/dL RDW (11.7-14.4) % Plt Count (182-369) x10^3/uL MPV (9.4-12.3) fL Gran % (34.0-71.1) % Immature Gran % (Auto) (0.001-0.429) % Nucleat RBC Rel Count (0.00-0.2) % Eos # (Auto) (0.04-0.36) x10^3/uL Immature Gran # (Auto) (0.001-0.031) x10^3u/L Absolute Lymphs (auto) (1.18-3.74) x10^3/uL Absolute Monos (auto) (0.24-0.86) x10^3/uL Absolute Nucleated RBC (0.00-0.012) x10^3u/L Lymphocytes % (19.3-51.7) % Monocytes % (4.7-12.5) % Eosinophils % (0.7-5.8) % Basophils % (0.1-1.2) % Absolute Granulocytes (1.56-6.13) x10^3/uL Basophils # (0.01-0.08) x10^3/uL Sodium 137 (135-145) mmol/L Potassium 4.0 (3.5-5.1) mmol/L Chloride 113 H (98-107) mmol/L Carbon Dioxide 11 L* (22-30) mmol/L Anion Gap 17.8 H (5-15) MEQ/L BUN 15 (7-17) mg/dL Creatinine 0.77 (0.52-1.04) mg/dL Estimated GFR 95.1 ML/MIN Glucose 80 (74-106) mg/dL Lactic Acid (0.4-2.0) Calcium 9.7 (8.4-10.2) mg/dL Total Bilirubin (0.2-1.3) mg/dL AST (14-36) U/L ALT (0-35) U/L Alkaline Phosphatase (38-126) U/L Troponin I < 0.012 < 0.012 (0.000-0.033) ng/mL Serum Total Protein (6.3-8.2) g/dL Albumin (3.5-5.0) g/dL Lipase (23-300) U/L Urine Color (Yellow) Urine Appearance (Clear) Urine pH (4.6-8.0) Ur Specific Hunt (1.005-1.030) Urine Protein (Negative) Urine Glucose (UA) (Negative) mg/dL Urine Ketones (Negative) Urine Blood (Negative) Urine Nitrite (Negative) Urine Bilirubin (Negative) Urine Urobilinogen (0.2) mg/dL Ur Leukocyte Esterase (Negative) U Hyaline Cast (Auto) (0-2) /LPF Urine Microscopic RBC (0-5) /HPF Urine Microscopic WBC (0-5) /HPF Ur Epithelial Cells (None Seen) /HPF Urine Bacteria (None Seen) /HPF Urine Culture Reflexed (NO) Urine Opiates Level (NEGATIVE) Ur Methadone (NEGATIVE) Urine Barbiturates (NEGATIVE) Ur Phencyclidine (PCP) (NEGATIVE) Urine Amphetamine (NEGATIVE) U Benzodiazepine Level (NEGATIVE) Urine Cocaine (NEGATIVE) Urine Marijuana (THC) (NEGATIVE) 04/26/25 04/26/25 04/27/25 Range/Units 17:05 21:55 04:45 WBC 7.2 (3.98-10.04) x10^3/uL RBC 4.06 (3.93-5.22) x10^6/uL Hgb 12.3 D (11.2-15.7) g/dL Hct 38.1 (34.1-44.9) % MCV 93.8 (79.4-94.8) fL MCH 30.3 (25.6-32.2) pg MCHC 32.3 (32.2-35.5) g/dL RDW 13.8 (11.7-14.4) % Plt Count 508 H (182-369) x10^3/uL MPV 8.6 L (9.4-12.3) fL Gran % 44.7 (34.0-71.1) % Immature Gran % (Auto) 0.4 (0.001-0.429) % Nucleat RBC Rel Count 0.0 (0.00-0.2) % Eos # (Auto) 0.20 (0.04-0.36) x10^3/uL Immature Gran # (Auto) 0.03 (0.001-0.031) x10^3u/L Absolute Lymphs (auto) 3.12 (1.18-3.74) x10^3/uL Absolute Monos (auto) 0.59 (0.24-0.86) x10^3/uL Absolute Nucleated RBC 0.00 (0.00-0.012) x10^3u/L Lymphocytes % 43.3 (19.3-51.7) % Monocytes % 8.2 (4.7-12.5) % Eosinophils % 2.8 (0.7-5.8) % Basophils % 0.6 (0.1-1.2) % Absolute Granulocytes 3.23 (1.56-6.13) x10^3/uL Basophils # 0.04 (0.01-0.08) x10^3/uL Sodium 136 135 (135-145) mmol/L Potassium 3.8 3.3 L (3.5-5.1) mmol/L Chloride 111 H 108 H (98-107) mmol/L Carbon Dioxide 13 L* 15 L* (22-30) mmol/L Anion Gap 15.7 H 14.6 (5-15) MEQ/L BUN 15 16 (7-17) mg/dL Creatinine 0.73 0.81 (0.52-1.04) mg/dL Estimated GFR 101.4 89.5 ML/MIN Glucose 89 97 (74-106) mg/dL Lactic Acid (0.4-2.0) Calcium 9.5 9.0 (8.4-10.2) mg/dL Total Bilirubin (0.2-1.3) mg/dL AST (14-36) U/L ALT (0-35) U/L Alkaline Phosphatase (38-126) U/L Troponin I (0.000-0.033) ng/mL Serum Total Protein (6.3-8.2) g/dL Albumin (3.5-5.0) g/dL Lipase (23-300) U/L Urine Color (Yellow) Urine Appearance (Clear) Urine pH (4.6-8.0) Ur Specific Hunt (1.005-1.030) Urine Protein (Negative) Urine Glucose (UA) (Negative) mg/dL Urine Ketones (Negative) Urine Blood (Negative) Urine Nitrite (Negative) Urine Bilirubin (Negative) Urine Urobilinogen (0.2) mg/dL Ur Leukocyte Esterase (Negative) U Hyaline Cast (Auto) (0-2) /LPF Urine Microscopic RBC (0-5) /HPF Urine Microscopic WBC (0-5) /HPF Ur Epithelial Cells (None Seen) /HPF Urine Bacteria (None Seen) /HPF Urine Culture Reflexed (NO) Urine Opiates Level (NEGATIVE) Ur Methadone (NEGATIVE) Urine Barbiturates (NEGATIVE) Ur Phencyclidine (PCP) (NEGATIVE) Urine Amphetamine (NEGATIVE) U Benzodiazepine Level (NEGATIVE) Urine Cocaine (NEGATIVE) Urine Marijuana (THC) (NEGATIVE) 04/27/25 Range/Units 04:45 WBC (3.98-10.04) x10^3/uL RBC (3.93-5.22) x10^6/uL Hgb (11.2-15.7) g/dL Hct (34.1-44.9) % MCV (79.4-94.8) fL MCH (25.6-32.2) pg MCHC (32.2-35.5) g/dL RDW (11.7-14.4) % Plt Count (182-369) x10^3/uL MPV (9.4-12.3) fL Gran % (34.0-71.1) % Immature Gran % (Auto) (0.001-0.429) % Nucleat RBC Rel Count (0.00-0.2) % Eos # (Auto) (0.04-0.36) x10^3/uL Immature Gran # (Auto) (0.001-0.031) x10^3u/L Absolute Lymphs (auto) (1.18-3.74) x10^3/uL Absolute Monos (auto) (0.24-0.86) x10^3/uL Absolute Nucleated RBC (0.00-0.012) x10^3u/L Lymphocytes % (19.3-51.7) % Monocytes % (4.7-12.5) % Eosinophils % (0.7-5.8) % Basophils % (0.1-1.2) % Absolute Granulocytes (1.56-6.13) x10^3/uL Basophils # (0.01-0.08) x10^3/uL Sodium 135 (135-145) mmol/L Potassium 3.0 L* (3.5-5.1) mmol/L Chloride 104 (98-107) mmol/L Carbon Dioxide 22 (22-30) mmol/L Anion Gap 12.2 (5-15) MEQ/L BUN 17 (7-17) mg/dL Creatinine 0.76 (0.52-1.04) mg/dL Estimated GFR 96.6 ML/MIN Glucose 101 (74-106) mg/dL Lactic Acid (0.4-2.0) Calcium 8.7 (8.4-10.2) mg/dL Total Bilirubin 0.50 (0.2-1.3) mg/dL AST 19 (14-36) U/L ALT 11 (0-35) U/L Alkaline Phosphatase 86 (38-126) U/L Troponin I (0.000-0.033) ng/mL Serum Total Protein 6.3 (6.3-8.2) g/dL Albumin 3.4 L (3.5-5.0) g/dL Lipase (23-300) U/L Urine Color (Yellow) Urine Appearance (Clear) Urine pH (4.6-8.0) Ur Specific Hunt (1.005-1.030) Urine Protein (Negative) Urine Glucose (UA) (Negative) mg/dL Urine Ketones (Negative) Urine Blood (Negative) Urine Nitrite (Negative) Urine Bilirubin (Negative) Urine Urobilinogen (0.2) mg/dL Ur Leukocyte Esterase (Negative) U Hyaline Cast (Auto) (0-2) /LPF Urine Microscopic RBC (0-5) /HPF Urine Microscopic WBC (0-5) /HPF Ur Epithelial Cells (None Seen) /HPF Urine Bacteria (None Seen) /HPF Urine Culture Reflexed (NO) Urine Opiates Level (NEGATIVE) Ur Methadone (NEGATIVE) Urine Barbiturates (NEGATIVE) Ur Phencyclidine (PCP) (NEGATIVE) Urine Amphetamine (NEGATIVE) U Benzodiazepine Level (NEGATIVE) Urine Cocaine (NEGATIVE) Urine Marijuana (THC) (NEGATIVE) Radiology Exams: Radiology Procedures Category Date Time Status ABDOMEN AND PELVIS W/0 CONTRAS [CT] Stat Exams 04/26/25 09:50 Completed CHEST 1 VIEW (PORTABLE) Stat Exams 04/26/25 12:53 Completed Medications: Medications Generic Name Dose Route Start Last Admin Trade Name Freq PRN Reason Stop Dose Admin Acetaminophen 650 mg 04/26/25 12:53 Acetaminophen 325 Mg Tablet PO 05/26/25 12:52 Q4H PRN PRN PAIN, FEVER, HEADACHE Enoxaparin Sodium 40 mg 04/26/25 14:00 04/26/25 13:44 Enoxaparin Sodium 40 Mg/0.4 Ml Syringe SQ 05/26/25 13:59 40 mg DAILY OMAR Administration Gabapentin 600 mg 04/26/25 13:40 Gabapentin 300 Mg Capsule PO 05/26/25 13:39 QID PRN PRN PAIN Hydromorphone HCl 0.5 mg 04/26/25 13:21 04/27/25 04:21 Hydromorphone 1 Mg/1ml Inj IV 05/01/25 13:20 0.5 mg Q4H PRN PRN Administration PAIN Ceftriaxone Sodium 1 gm in 100 mls @ 200 mls/hr 04/27/25 10:00 Rocephin 1 Gm / 100 Ml Nacl IV 05/27/25 09:59 Q24H10 OMAR Sodium Bicarbonate 150 meq/ 1,150 mls @ 100 mls/hr 04/26/25 14:00 04/27/25 01:16 Dextrose IV 05/26/25 13:59 100 ml/hr .[id number] OMAR 100 mls/hr Administration Ondansetron HCl 4 mg 04/26/25 12:53 04/27/25 00:11 Ondansetron Hcl 4 Mg/2 Ml Vial IV 05/26/25 12:52 4 mg Q6H PRN PRN Administration NAUSEA/VOMITING Pantoprazole Sodium 40 mg 04/26/25 13:00 04/26/25 13:44 Pantoprazole 40 Mg Vial IV 05/26/25 12:59 40 mg Q24H10 OMAR Administration Discontinued Medications Generic Name Dose Route Start Last Admin Trade Name Freq PRN Reason Stop Dose Admin Droperidol 1.25 mg 04/26/25 10:15 04/26/25 10:18 Droperidol 5 Mg/2 Ml Vial IV 04/26/25 10:16 1.25 mg STAT ONE Administration Droperidol Confirm 04/26/25 10:18 Droperidol 5 Mg/2 Ml Vial Administered 04/26/25 10:19 Dose 5 mg .ROUTE .STK-MED ONE Hydromorphone HCl 0.5 mg 04/26/25 11:14 04/26/25 11:18 Hydromorphone 1 Mg/1ml Inj IV 04/26/25 11:15 0.5 mg STAT ONE Administration Hydromorphone HCl Confirm 04/26/25 11:16 Hydromorphone 1 Mg/1ml Inj Administered 04/26/25 11:17 Dose 1 mg .ROUTE .STK-MED ONE Sodium Chloride 1,000 mls @ 100 mls/hr 04/26/25 10:00 04/26/25 10:09 Sodium Chloride 0.9% 1000 Ml IV 05/26/25 09:59 100 mls/hr .Q10H OMAR Administration Ceftriaxone Sodium 1 gm in 100 mls @ 200 mls/hr 04/26/25 11:46 04/26/25 11:49 Rocephin 1 Gm / 100 Ml Nacl IV 04/26/25 12:15 200 ml/hr STAT ONE 200 mls/hr Administration Ceftriaxone Sodium Confirm 04/26/25 11:49 Rocephin 1 Gm / 100 Ml Nacl Administered 04/26/25 11:50 Dose 1 gm in 100 mls @ ud IV .STK-MED ONE Sodium Chloride Confirm 04/26/25 10:08 Sodium Chloride 0.9% 1000 Ml Administered 04/26/25 10:09 Dose 1,000 mls @ ud .ROUTE .STK-MED ONE Ketorolac Tromethamine 30 mg 04/26/25 10:04 04/26/25 10:18 Ketorolac Tromethamine 30 Mg/Ml Inj IV 04/26/25 10:05 Not Given STAT ONE Ketorolac Tromethamine Confirm 04/26/25 10:08 Ketorolac Tromethamine 30 Mg/Ml Inj Administered 04/26/25 10:09 Dose 30 mg .ROUTE .STK-MED ONE Assessment/Plan (1) UTI (urinary tract infection) Current Visit: Yes Status: Acute Assessment & Plan: -UA with leukocytes, many bacteria, marked pyuria, and hematuria -Leukocytosis with wbc at 12.1 -Ceftriaxone given in ED will continue- follow cultures 04/27 -WBC now wnl at 7.2 -Gram + ID on culture -continue ceftriaxone pending final sensitivity Code(s): N39.0 - URINARY TRACT INFECTION, SITE NOT SPECIFIED (2) Nausea & vomiting Current Visit: Yes Status: Acute Assessment & Plan: -Ongoing symptomatic vomiting limiting intake -Zofran as needed -Continue IVF -Advance diet as tolerated 04/27: -Resolved, attempted to advance diet - patient complaining of abdominal pain- will keep NPO Code(s): R11.2 - NAUSEA WITH VOMITING, UNSPECIFIED (3) Leukocytosis Current Visit: Yes Status: Acute Assessment & Plan: -Most likely 2/2 to UTI --CT abdomen with no acute process -CXR -lacid acid WNL -Blood cultures x 2 -Ucult pending -Continue Ceftriaxone 04/27: -WBC now wnl at 7.2 -continue ceftriaxone -Blood/urine cultures pending Code(s): D72.829 - ELEVATED WHITE BLOOD CELL COUNT, UNSPECIFIED Hypokalemia -Potassium at 3.o - will replenish per protocol -tele -repeat potassium at 3.8 (4) Abdominal pain Current Visit: Yes Status: Acute Assessment & Plan: -Likely multifactorial from UTI, renal stone, dehydration, and acidosis -CT negative for surgical cause, lipase normal -see treatment for UTI above 04/27: -NPO -Continue protonix change to BID 40mg -General Surgery Consult placed for diagnostic EGD given: Persistent severe epigastric pain;New black stools;No acute explanation on CT imaging -Serial hemoglobin/hematocrit -Strict avoidance of NSAIDs. -Antiemetics as needed -Pain control: -occult stools Melena -occult stools -Surgery consulted for possible EGD/colonoscopy Code(s): R10.9 - UNSPECIFIED ABDOMINAL PAIN Coated Tongue -Geographic Tongue vs. Superimposed Oral Irritation -Svetlana Magic Mouthwash swish and swallow as ordered for symptomatic relief. -Maintain good oral hygiene as tolerated. -Monitor for development of true oral candidiasis (worsening plaques, bleeding with scraping). (5) High anion gap metabolic acidosis Current Visit: Yes Status: Acute Assessment & Plan: -Low bicarbonate with elevated anion gap, lactic acid normal -Likely due to vomiting, dehydration, and acute infection -Continue bicarb drip -BMP q4h 04/27: -Acidosis resolved with co2 at 22; GAP 12.2; lactic WNL -Bicarb drip discontinued Code(s): E87.29 - OTHER ACIDOSIS (6) Renal calculi Current Visit: Yes Status: Acute Assessment & Plan: -Seen on CT without hydronephrosis or obstruction -Manage conservatively with hydration and pain control -Monitor renal function and symptoms (7) PVD (peripheral vascular disease) Current Visit: Yes Status: Acute Assessment & Plan: -continue home regimen Code(s): I73.9 - PERIPHERAL VASCULAR DISEASE, UNSPECIFIED (8) Fibromyalgia Current Visit: Yes Status: Acute Assessment & Plan: -continue home regimen (9) Migraines Current Visit: Yes Status: Acute Assessment & Plan: -continue home meds (10) Bipolar 1 disorder Current Visit: No Status: Chronic Code(s): F31.9 - BIPOLAR DISORDER, UNSPECIFIED -Continue home meds VTE: lovenox- held PPI: protonix Dispo: 1-2 days Code Status: SCO Plan of care time spent > 40 mins Code(s): G43.909 - MIGRAINE, UNSP, NOT INTRACTABLE, WITHOUT STATUS MIGRAINOSUS Code(s): N39.0 - URINARY TRACT INFECTION, SITE NOT SPECIFIED (2) Nausea & vomiting Current Visit: Yes Status: Acute Code(s): R11.2 - NAUSEA WITH VOMITING, UNSPECIFIED (3) Leukocytosis Current Visit: Yes Status: Acute Code(s): D72.829 - ELEVATED WHITE BLOOD CELL COUNT, UNSPECIFIED (4) Abdominal pain Current Visit: Yes Status: Acute Code(s): R10.9 - UNSPECIFIED ABDOMINAL PAIN (5) High anion gap metabolic acidosis Current Visit: Yes Status: Acute Code(s): E87.29 - OTHER ACIDOSIS (6) Renal calculi Current Visit: Yes Status: Acute (7) PVD (peripheral vascular disease) Current Visit: Yes Status: Acute Code(s): I73.9 - PERIPHERAL VASCULAR DISEASE, UNSPECIFIED (8) Fibromyalgia Current Visit: Yes Status: Acute (9) Migraines Current Visit: Yes Status: Acute Code(s): G43.909 - MIGRAINE, UNSP, NOT INTRACTABLE, WITHOUT STATUS MIGRAINOSUS (10) Bipolar 1 disorder Current Visit: No Status: Chronic Code(s): F31.9 - BIPOLAR DISORDER, UNSPECIFIED (11) Hypokalemia Current Visit: Yes Status: Acute Code(s): E87.6 - HYPOKALEMIA
[2025-04-27] MEDS: K-LYTE PO ONE (06:15)
[2025-04-27] MEDS ORDERED: ULTRAM 50 MG PO PRN (07:44)
[2025-04-27] MEDS: NORCO 5/325 MG PO PRN (08:34)
[2025-04-27] MEDS: NEURONTIN PO PRN (09:41)
[2025-04-27] MEDS: BENTYL 20 MG PO PRN (09:41)
[2025-04-27] MEDS: MAGNESIUM SULF 2 G/50 ML BAG 2 GM/50 ML PIGGYBACK IV ONE (10:03)
[2025-04-27] MEDS: ROCEPHIN 1 GM / 100 ML NaCl 1 GM/100 ML IVPB IV SCH (10:06)
[2025-04-27] MEDS: Hydromorphone 1 mg/ml Injection IV PRN (12:25)
[2025-04-27] MEDS: MARY'S MAGIC MOUTHWASH PO SCH (13:28)
[2025-04-27] MEDS: PROTONIX 40 MG IV IV SCH (21:41)
[2025-04-27] MEDS: ATARAX 25 MG PO ONE (22:04)
--- NOTE | 2025-04-28 05:32 | PCM.NOTE ---
Date and Time: 04/28/25 0531 Subjective Assessment: is a 50 year old female with a pmhx of migraines, peripheral vascular disease, bipolar disorder, fibromyalgia, and former tobacco use who presented on 04/26/25 with complaints of two weeks of persistent vomiting and worsening abdominal pain. Note she reported to ED pain started today. She describes the pain as mid-abdominal with radiation to the right flank, characterized as stabbing, cramping, and burning, rated 9 out of 10, and worsened with movement, breathing, and vomiting, with partial relief from pain medication. She is unable to tolerate oral intake. On exam, she appeared uncomfortable and nauseated. Oral exam showed a white coating on the tongue, which the patient reports is related to her known geographic tongue. Denies fever,cough, sob, cp, BOONE, dizziness, N/V/D. Multiple previous admissions for drug overdose. On arrival, vitals stable. Labs remarkable for leukocytosis at 12.1 with metabolic acidosis reflected by low carbon dioxide at 12 and elevated anion gap at 21.2. Chloride was elevated at 110 and calcium mildly elevated at 10.3. Lactic acid and lipase were normal. Urinalysis showed leukocytes, many bacteria, hyaline casts, significant microscopic hematuria, and marked pyuria concerning for urinary tract infection. CT abdomen and pelvis showed non-obstructing left renal calculi, calcified splenic granulomas, and postoperative changes from prior cholecystectomy and hysterectomy without acute intra-abdominal pathology. She received ceftriaxone, ketorolac, hydromorphone, and droperidol in the emergency department. 04/27/25: Met with patient bedside. She continues to report severe mid-epigastric pain with radiation into the right back, now described as a constant burning sensation rated 10 out of 10. Nausea and vomiting have resolved; however, she reports new-onset black stools this morning, raising concern for possible upper gastrointestinal bleeding. Her previously noted metabolic acidosis has resolved. Morning labs reveal hypokalemia and hypomagnesemia, which are being actively repleted. Oral examination again demonstrates a thick white coating on the tongue, which the patient reports is chronic and consistent with her history of geographic tongue, though due to discomfort and possible superimposed irritation, Svetlana magic mouthwash has been added. Given the persistence and severity of epigastric pain, the report of melena, and the absence of a clear explanation on CT imaging, General Surgery has been consulted for further evaluation and consideration of diagnostic EGD with possible colonoscopy. Urine culture is growing gram-positive organisms with identification pending, and ceftriaxone is being continued at this time. 04/28/25: Endorses 8/10 abdominal pain. No nausea/vomiting. She also reports new dysuria. Ucult showing Enterococcus, started on levaquin. Occults stools positive. Awaiting surgery consult and recommendations. Denies fever,cough, sob, cp, BOONE, dizziness, N/V/D. - Review of Systems Constitutional: No Symptoms Eyes: No Symptoms Ears, Nose, & Throat: No Symptoms Respiratory: No Symptoms Cardiac: No Symptoms Abdominal/Gastrointestinal: Abdominal Pain, Melena Genitourinary Symptoms: No Symptoms Musculoskeletal: Back Pain Skin: No Symptoms Neurological: No Symptoms Psychological: No Symptoms Endocrine: No Symptoms Hematologic/Lymphatic: No Symptoms Immunological/Allergic: No Symptoms Objective Exam General Appearance: no apparent distress Neurologic Exam: alert, oriented x 3, cooperative Skin Exam: normal color Eye Exam: PERRL Ears, Nose, Throat Exam: normal ENT inspection Neck Exam: normal inspection Respiratory Exam: normal breath sounds, lungs clear Cardiovascular Exam: regular rate/rhythm, normal heart sounds Gastrointestinal/Abdomen Exam: soft, normal bowel sounds, tenderness (TTP RLQ) Extremity Exam: normal inspection Back Exam: normal inspection Pelvic Exam: deferred Rectal Exam: deferred Objective Data Vital Signs: Vital Signs - 24 hr Temp Pulse Resp BP Pulse Ox 04/28/25 03:00 98.0 F 78 16 96/65 95 04/27/25 23:00 97.8 F 53 L 16 96/60 98 04/27/25 19:00 98.5 F 74 18 110/63 95 04/27/25 15:00 97.6 F 78 18 94/61 04/27/25 11:20 98.0 F 71 18 145/70 04/27/25 07:20 98.3 F 85 16 100/57 99 Pain Assessment - Last Documented Pain Intensity 9 Pain Scale Used 0-10 Pain Scale Intake and Output: Intake & Output 04/25/25 04/26/25 04/27/25 04/28/25 11:59 11:59 11:59 11:59 Intake Total 2559 1544 Balance 2559 1544 Weight 59.2 kg 60 kg Lab Results: Lab Results-Last 24 Hours 04/27/25 04/27/25 04/27/25 Range/Units 04:45 04:45 05:33 D-Dimer 0.37 (0.0-0.50) mg/L Sodium 135 (135-145) mmol/L Potassium 3.0 L* (3.5-5.1) mmol/L Chloride 104 (98-107) mmol/L Carbon Dioxide 22 (22-30) mmol/L Anion Gap 12.2 (5-15) MEQ/L BUN 17 (7-17) mg/dL Creatinine 0.76 (0.52-1.04) mg/dL Estimated GFR 96.6 ML/MIN Glucose 101 (74-106) mg/dL Calcium 8.7 (8.4-10.2) mg/dL Magnesium 1.5 L (1.6-2.3) mg/dL Total Bilirubin 0.50 (0.2-1.3) mg/dL AST 19 (14-36) U/L ALT 11 (0-35) U/L Alkaline Phosphatase 86 (38-126) U/L Serum Total Protein 6.3 (6.3-8.2) g/dL Albumin 3.4 L (3.5-5.0) g/dL 04/27/25 Range/Units 09:05 D-Dimer (0.0-0.50) mg/L Sodium (135-145) mmol/L Potassium 3.8 (3.5-5.1) mmol/L Chloride (98-107) mmol/L Carbon Dioxide (22-30) mmol/L Anion Gap (5-15) MEQ/L BUN (7-17) mg/dL Creatinine (0.52-1.04) mg/dL Estimated GFR ML/MIN Glucose (74-106) mg/dL Calcium (8.4-10.2) mg/dL Magnesium (1.6-2.3) mg/dL Total Bilirubin (0.2-1.3) mg/dL AST (14-36) U/L ALT (0-35) U/L Alkaline Phosphatase (38-126) U/L Serum Total Protein (6.3-8.2) g/dL Albumin (3.5-5.0) g/dL Radiology Exams: Radiology Procedures Category Date Time Status ABDOMEN AND PELVIS W/0 CONTRAS [CT] Stat Exams 04/26/25 09:50 Completed CHEST 1 VIEW (PORTABLE) Stat Exams 04/26/25 12:53 Completed Medications: Medications Generic Name Dose Route Start Last Admin Trade Name Freq PRN Reason Stop Dose Admin Acetaminophen 650 mg 04/26/25 12:53 Acetaminophen 325 Mg Tablet PO 05/26/25 12:52 Q4H PRN PRN PAIN, FEVER, HEADACHE Dicyclomine HCl 20 mg 04/27/25 07:45 04/27/25 21:41 Dicyclomine Hcl 20 Mg Tablet PO 05/27/25 07:44 20 mg QID PRN PRN Administration PAIN Diphenhydramine/Hydrocorti/Nystatin 10 ml 04/27/25 13:00 04/28/25 00:27 Nystatin/Pred/Diphenhydr 240 Ml Bottle PO 05/27/25 12:59 10 ml QID OMAR Administration Enoxaparin Sodium 40 mg 04/26/25 14:00 04/27/25 10:34 Enoxaparin Sodium 40 Mg/0.4 Ml Syringe SQ 05/26/25 13:59 Not Given DAILY OMAR Gabapentin 600 mg 04/26/25 13:40 04/27/25 21:41 Gabapentin 300 Mg Capsule PO 05/26/25 13:39 600 mg QID PRN PRN Administration PAIN Hydromorphone HCl 0.5 mg 04/27/25 12:04 04/28/25 04:52 Hydromorphone 1 Mg/1ml Inj IV 05/02/25 12:03 0.5 mg Q4H PRN PRN Administration PAIN Hydroxyzine HCl 25 mg 04/27/25 21:54 04/27/25 22:04 Hydroxyzine Hcl 25 Mg Tablet PO 04/27/25 21:55 25 mg STAT ONE Administration Ceftriaxone Sodium 1 gm in 100 mls @ 200 mls/hr 04/27/25 10:00 04/27/25 10:06 Rocephin 1 Gm / 100 Ml Nacl IV 05/27/25 09:59 200 mls/hr Q24H10 OMAR Administration Sodium Chloride 1,000 mls @ 100 mls/hr 04/27/25 17:00 04/27/25 21:46 Sodium Chloride 0.9% 1000 Ml IV 05/27/25 16:59 100 mls/hr .Q10H OMAR Administration Ondansetron HCl 4 mg 04/26/25 12:53 04/28/25 04:51 Ondansetron Hcl 4 Mg/2 Ml Vial IV 05/26/25 12:52 4 mg Q6H PRN PRN Administration NAUSEA/VOMITING Pantoprazole Sodium 40 mg 04/27/25 22:00 04/27/25 21:41 Pantoprazole 40 Mg Vial IV 05/27/25 21:59 40 mg BID OMAR Administration Discontinued Medications Generic Name Dose Route Start Last Admin Trade Name Freq PRN Reason Stop Dose Admin Hydrocodone Bitart/Acetaminophen 1 tab 04/27/25 07:44 04/27/25 08:34 Hydrocodone/Apap 5/325 1 Tab Tablet PO 05/02/25 07:43 1 tab Q4H PRN PRN Administration PAIN Droperidol 1.25 mg 04/26/25 10:15 04/26/25 10:18 Droperidol 5 Mg/2 Ml Vial IV 04/26/25 10:16 1.25 mg STAT ONE Administration Droperidol Confirm 04/26/25 10:18 Droperidol 5 Mg/2 Ml Vial Administered 04/26/25 10:19 Dose 5 mg .ROUTE .STK-MED ONE Hydromorphone HCl 0.5 mg 04/26/25 11:14 04/26/25 11:18 Hydromorphone 1 Mg/1ml Inj IV 04/26/25 11:15 0.5 mg STAT ONE Administration Hydromorphone HCl Confirm 04/26/25 11:16 Hydromorphone 1 Mg/1ml Inj Administered 04/26/25 11:17 Dose 1 mg .ROUTE .STK-MED ONE Hydromorphone HCl 0.5 mg 04/26/25 13:21 04/27/25 04:21 Hydromorphone 1 Mg/1ml Inj IV 05/01/25 13:20 0.5 mg Q4H PRN PRN Administration PAIN Sodium Chloride 1,000 mls @ 100 mls/hr 04/26/25 10:00 04/26/25 10:09 Sodium Chloride 0.9% 1000 Ml IV 05/26/25 09:59 100 mls/hr .Q10H OMAR Administration Ceftriaxone Sodium 1 gm in 100 mls @ 200 mls/hr 04/26/25 11:46 04/26/25 11:49 Rocephin 1 Gm / 100 Ml Nacl IV 04/26/25 12:15 200 ml/hr STAT ONE 200 mls/hr Administration Ceftriaxone Sodium Confirm 04/26/25 11:49 Rocephin 1 Gm / 100 Ml Nacl Administered 04/26/25 11:50 Dose 1 gm in 100 mls @ ud IV .STK-MED ONE Sodium Chloride Confirm 04/26/25 10:08 Sodium Chloride 0.9% 1000 Ml Administered 04/26/25 10:09 Dose 1,000 mls @ ud .ROUTE .STK-MED ONE Sodium Bicarbonate 150 meq/ 1,150 mls @ 100 mls/hr 04/26/25 14:00 04/27/25 01:16 Dextrose IV 05/26/25 13:59 100 ml/hr .[id number] OMAR 100 mls/hr Administration Magnesium Sulfate/Water 2 gm in 50 mls @ 100 mls/hr 04/27/25 08:00 04/27/25 10:03 Magnesium Sulf 2 G/50 Ml Bag IV 04/27/25 08:29 100 mls/hr ONCE ONE Administration Ketorolac Tromethamine 30 mg 04/26/25 10:04 04/26/25 10:18 Ketorolac Tromethamine 30 Mg/Ml Inj IV 04/26/25 10:05 Not Given STAT ONE Ketorolac Tromethamine Confirm 04/26/25 10:08 Ketorolac Tromethamine 30 Mg/Ml Inj Administered 04/26/25 10:09 Dose 30 mg .ROUTE .STK-MED ONE Pantoprazole Sodium 40 mg 04/26/25 13:00 04/27/25 10:03 Pantoprazole 40 Mg Vial IV 05/26/25 12:59 40 mg Q24H10 OMAR Administration Potassium Bicarbonate 50 meq 04/27/25 05:46 04/27/25 06:15 Potassium Bicarbonate 25 Meq Tab PO 04/27/25 05:47 50 meq STAT ONE Administration Tramadol HCl 50 mg 04/27/25 07:44 Tramadol Hcl 50 Mg Tablet PO 05/27/25 07:43 QID PRN PRN PAIN Multi-Disciplinary Progress Notes: Multi-Disciplinary Progress Notes 04/27/25 10:32 Case Management Note by Carmen Yanes ATTEMPTED CASE MANAGEMENT/DC PLANNING ASSESSMENT- PATIENT DECLINED TO S/W THIS MASTER MACHINIST AT THIS TIME Initialized on 04/27/25 10:32 - END OF NOTE Assessment/Plan (1) UTI (urinary tract infection) Current Visit: Yes Status: Acute Assessment & Plan: -UA with leukocytes, many bacteria, marked pyuria, and hematuria -Leukocytosis with wbc at 12.1 -Ceftriaxone given in ED will continue- follow cultures 04/27 -WBC now wnl at 7.2 -Gram + ID on culture -continue ceftriaxone pending final sensitivity 04/28: -Urine culture with enterococcous - dc ceftriaxone, continue levaquin -WBC WNL at 5.5 Code(s): N39.0 - URINARY TRACT INFECTION, SITE NOT SPECIFIED (2) Nausea & vomiting Current Visit: Yes Status: Acute Assessment & Plan: -Ongoing symptomatic vomiting limiting intake -Zofran as needed -Continue IVF -Advance diet as tolerated 04/27: -Resolved, attempted to advance diet - patient complaining of abdominal pain- will keep NPO Code(s): R11.2 - NAUSEA WITH VOMITING, UNSPECIFIED (3) Leukocytosis Current Visit: Yes Status: Acute Assessment & Plan: -Most likely 2/2 to UTI --CT abdomen with no acute process -CXR -lacid acid WNL -Blood cultures x 2 -Ucult pending -Continue Ceftriaxone 04/27: -WBC now wnl at 7.2 -continue ceftriaxone -Blood/urine cultures pending 04/28: -Blood cultures pending -Urine culture with enterococcus see plan above -WBC WNL Code(s): D72.829 - ELEVATED WHITE BLOOD CELL COUNT, UNSPECIFIED Hypokalemia -Potassium at 3.o - will replenish per protocol -tele -repeat potassium at 3.8 04/28: -Potassium wnl -continue daily monitoring -tele Hypomagnesemia -Resolved now at 1.6 -Monitor daily (4) Abdominal pain Current Visit: Yes Status: Acute Assessment & Plan: -Likely multifactorial from UTI, renal stone, dehydration, and acidosis -CT negative for surgical cause, lipase normal -see treatment for UTI above 04/27: -NPO -Continue protonix change to BID 40mg -General Surgery Consult placed for diagnostic EGD/colonoscopy given: Persistent severe epigastric pain;New black stools;No acute explanation on CT imaging + occult stools -Serial hemoglobin/hematocrit -Strict avoidance of NSAIDs. -Antiemetics as needed -Pain control: -occult stools 04/28: -Occult stools + -Protonix BID -Surgery consult pending -Hold anticoag -NPO -Pain control -add lipase Melena -occult stools -Surgery consulted for possible EGD/colonoscopy 04/28: -Occult stool + -Protonix 40mg bid -Keep NPO -Noted drop in hemoglobin since admission now at 11.4 was at 15.6 -surgery consulted and pending -transfuse if hgb less than 7 Code(s): R10.9 - UNSPECIFIED ABDOMINAL PAIN Coated Tongue -Geographic Tongue vs. Superimposed Oral Irritation -Svetlana Magic Mouthwash swish and swallow as ordered for symptomatic relief. -Maintain good oral hygiene as tolerated. -Monitor for development of true oral candidiasis (worsening plaques, bleeding with scraping). (5) High anion gap metabolic acidosis Current Visit: Yes Status: Acute Assessment & Plan: -Low bicarbonate with elevated anion gap, lactic acid normal -Likely due to vomiting, dehydration, and acute infection -Continue bicarb drip -BMP q4h 04/27: -Acidosis resolved with co2 at 22; GAP 12.2; lactic WNL -Bicarb drip discontinued Code(s): E87.29 - OTHER ACIDOSIS (6) Renal calculi Current Visit: Yes Status: Acute Assessment & Plan: -Seen on CT without hydronephrosis or obstruction -Manage conservatively with hydration and pain control -Monitor renal function and symptoms (7) PVD (peripheral vascular disease) Current Visit: Yes Status: Acute Assessment & Plan: -continue home regimen Code(s): I73.9 - PERIPHERAL VASCULAR DISEASE, UNSPECIFIED (8) Fibromyalgia Current Visit: Yes Status: Acute Assessment & Plan: -continue home regimen (9) Migraines Current Visit: Yes Status: Acute Assessment & Plan: -continue home meds (10) Bipolar 1 disorder Current Visit: No Status: Chronic Code(s): F31.9 - BIPOLAR DISORDER, UNSPECIFIED -Continue home meds VTE: lovenox- held PPI: protonix Dispo: 1-2 days Code Status: SCO Plan of care time spent > 40 mins Code(s): N39.0 - URINARY TRACT INFECTION, SITE NOT SPECIFIED (2) Nausea & vomiting Current Visit: Yes Status: Acute Code(s): R11.2 - NAUSEA WITH VOMITING, UNSPECIFIED (3) Leukocytosis Current Visit: Yes Status: Acute Code(s): D72.829 - ELEVATED WHITE BLOOD CELL COUNT, UNSPECIFIED (4) Abdominal pain Current Visit: Yes Status: Acute Code(s): R10.9 - UNSPECIFIED ABDOMINAL PAIN (5) High anion gap metabolic acidosis Current Visit: Yes Status: Acute Code(s): E87.29 - OTHER ACIDOSIS (6) Renal calculi Current Visit: Yes Status: Acute (7) PVD (peripheral vascular disease) Current Visit: Yes Status: Acute Code(s): I73.9 - PERIPHERAL VASCULAR DISEASE, UNSPECIFIED (8) Fibromyalgia Current Visit: Yes Status: Acute (9) Migraines Current Visit: Yes Status: Acute Code(s): G43.909 - MIGRAINE, UNSP, NOT INTRACTABLE, WITHOUT STATUS MIGRAINOSUS (10) Bipolar 1 disorder Current Visit: No Status: Chronic Code(s): F31.9 - BIPOLAR DISORDER, UNSPECIFIED (11) Hypokalemia Current Visit: Yes Status: Acute Code(s): E87.6 - HYPOKALEMIA (12) Hypomagnesemia Current Visit: Yes Status: Acute Code(s): E83.42 - HYPOMAGNESEMIA
[2025-04-28 06:40] LABS: Hematocrit 35.4 % (34.1-44.9); Hemoglobin 11.4 g/dL (11.2-15.7); Mean Corpuscular Hemoglobin 31.1 pg (25.6-32.2); Mean Corpuscular Hgb Concent. 32.2 g/dL (32.2-35.5); Platelet Count 391 x10^3/uL (182-369); Red Blood Count 3.67 x10^6/uL (3.93-5.22); White Blood Count 5.5 x10^3/uL (3.98-10.04)
[2025-04-28 06:56] LABS: Calcium 8.3 mg/dL (8.4-10.2); Carbon Dioxide 21.0 mmol/L (22-30); Creatinine 1 0.7 mg/dL (0.52-1.04); EST GLOMERULAR FILTRATION RATE 106.6 ML/MIN; Glucose 81.0 mg/dL (74-106); Potassium 3.5 mmol/L (3.5-5.1); SGOT/AST 19.0 U/L (14-36); SGPT/ALT 8.0 U/L (0-35); Total Protein 5.8 g/dL (6.3-8.2)
[2025-04-28 07:05] LABS: Total Cells Counted 100; Toxic Granulation 1+
[2025-04-28] MEDS: LEVOFLOXACIN 750MG/150ML D5W 750 MG/150 ML BAG IV SCH (08:58)
[2025-04-28 10:23] LABS: IFOB TEST RESULTS POSITIVE (NEGATIVE)
[2025-04-28] MEDS ORDERED: propofoL IV ONE (15:46)
[2025-04-28] MEDS: Carafate 1 GM PO SCH (21:09)
[2025-04-29 04:17] VITALS: RESP 16
--- NOTE | 2025-04-29 05:32 | PCM.NOTE ---
Date and Time: 04/29/25 0529 Subjective Assessment: is a 50 year old female with a pmhx of migraines, peripheral vascular disease, bipolar disorder, fibromyalgia, and former tobacco use who presented on 04/26/25 with complaints of two weeks of persistent vomiting and worsening abdominal pain. Note she reported to ED pain started today. She describes the pain as mid-abdominal with radiation to the right flank, characterized as stabbing, cramping, and burning, rated 9 out of 10, and worsened with movement, breathing, and vomiting, with partial relief from pain medication. She is unable to tolerate oral intake. On exam, she appeared uncomfortable and nauseated. Oral exam showed a white coating on the tongue, which the patient reports is related to her known geographic tongue. Denies fever,cough, sob, cp, BOONE, dizziness, N/V/D. Multiple previous admissions for drug overdose. On arrival, vitals stable. Labs remarkable for leukocytosis at 12.1 with metabolic acidosis reflected by low carbon dioxide at 12 and elevated anion gap at 21.2. Chloride was elevated at 110 and calcium mildly elevated at 10.3. Lactic acid and lipase were normal. Urinalysis showed leukocytes, many bacteria, hyaline casts, significant microscopic hematuria, and marked pyuria concerning for urinary tract infection. CT abdomen and pelvis showed non-obstructing left renal calculi, calcified splenic granulomas, and postoperative changes from prior cholecystectomy and hysterectomy without acute intra-abdominal pathology. She received ceftriaxone, ketorolac, hydromorphone, and droperidol in the emergency department. 04/27/25: Met with patient bedside. She continues to report severe mid-epigastric pain with radiation into the right back, now described as a constant burning sensation rated 10 out of 10. Nausea and vomiting have resolved; however, she reports new-onset black stools this morning, raising concern for possible upper gastrointestinal bleeding. Her previously noted metabolic acidosis has resolved. Morning labs reveal hypokalemia and hypomagnesemia, which are being actively repleted. Oral examination again demonstrates a thick white coating on the tongue, which the patient reports is chronic and consistent with her history of geographic tongue, though due to discomfort and possible superimposed irritation, Svetlana magic mouthwash has been added. Given the persistence and severity of epigastric pain, the report of melena, and the absence of a clear explanation on CT imaging, General Surgery has been consulted for further evaluation and consideration of diagnostic EGD with possible colonoscopy. Urine culture is growing gram-positive organisms with identification pending, and ceftriaxone is being continued at this time. 04/28/25: Endorses 8/10 abdominal pain. No nausea/vomiting. She also reports new dysuria. Ucult showing Enterococcus, started on levaquin. Occults stools positive. Awaiting surgery consult and recommendations. Denies fever,cough, sob, cp, BOONE, dizziness, N/V/D. Objective Data Vital Signs: Vital Signs - 24 hr Temp Pulse Resp BP Pulse Ox 04/29/25 04:00 97.9 F 75 16 93/59 96 04/28/25 23:43 97.2 F 86 20 131/57 100 04/28/25 20:15 97.8 F 66 18 109/64 99 04/28/25 17:06 97.8 F 91 H 18 130/69 99 04/28/25 15:11 99.0 F 66 17 115/88 97 04/28/25 11:00 99.0 F 66 17 115/88 97 04/28/25 07:00 97.6 F 84 18 102/65 99 Pain Assessment - Last Documented Pain Intensity 2 Pain Scale Used 0-10 Pain Scale Intake and Output: Intake & Output 04/26/25 04/27/25 04/28/25 04/29/25 11:59 11:59 11:59 11:59 Intake Total 2559 1544 3529 Balance 2559 1544 3529 Weight 59.2 kg 60 kg 60 kg Lab Results: Lab Results-Last 24 Hours 04/28/25 04/28/25 04/28/25 Range/Units 06:40 06:40 06:40 WBC 5.5 (3.98-10.04) x10^3/uL RBC 3.67 L (3.93-5.22) x10^6/uL Hgb 11.4 (11.2-15.7) g/dL Hct 35.4 (34.1-44.9) % MCV 96.5 H (79.4-94.8) fL MCH 31.1 (25.6-32.2) pg MCHC 32.2 (32.2-35.5) g/dL RDW 14.0 (11.7-14.4) % Plt Count 391 H (182-369) x10^3/uL MPV 8.6 L (9.4-12.3) fL Segmented Neutrophils 46 (34.0-71.1) % Lymphocytes (Manual) 44 (19.3-51.7) % Monocytes (Manual) 3 L (4.7-12.5) % Eosinophils (Manual) 4 (0.7-5.8) % Atypical Lymphocytes 3 % Toxic Granulation 1+ Platelet Estimate NORMAL (NORMAL) RBC Morphology NORMAL Sodium 134 L (135-145) mmol/L Potassium 3.5 (3.5-5.1) mmol/L Chloride 105 (98-107) mmol/L Carbon Dioxide 21 L (22-30) mmol/L Anion Gap 11.6 (5-15) MEQ/L BUN 10 (7-17) mg/dL Creatinine 0.70 (0.52-1.04) mg/dL Estimated GFR 106.6 ML/MIN Glucose 81 (74-106) mg/dL Calcium 8.3 L (8.4-10.2) mg/dL Magnesium 1.6 (1.6-2.3) mg/dL Total Bilirubin 0.50 (0.2-1.3) mg/dL AST 19 (14-36) U/L ALT 8 (0-35) U/L Alkaline Phosphatase 74 (38-126) U/L Serum Total Protein 5.8 L (6.3-8.2) g/dL Albumin 3.2 L (3.5-5.0) g/dL Lipase (23-300) U/L Stl Occult Blood (IFOB) (NEGATIVE) 04/28/25 04/28/25 Range/Units 07:51 09:46 WBC (3.98-10.04) x10^3/uL RBC (3.93-5.22) x10^6/uL Hgb (11.2-15.7) g/dL Hct (34.1-44.9) % MCV (79.4-94.8) fL MCH (25.6-32.2) pg MCHC (32.2-35.5) g/dL RDW (11.7-14.4) % Plt Count (182-369) x10^3/uL MPV (9.4-12.3) fL Segmented Neutrophils (34.0-71.1) % Lymphocytes (Manual) (19.3-51.7) % Monocytes (Manual) (4.7-12.5) % Eosinophils (Manual) (0.7-5.8) % Atypical Lymphocytes % Toxic Granulation Platelet Estimate (NORMAL) RBC Morphology Sodium (135-145) mmol/L Potassium (3.5-5.1) mmol/L Chloride (98-107) mmol/L Carbon Dioxide (22-30) mmol/L Anion Gap (5-15) MEQ/L BUN (7-17) mg/dL Creatinine (0.52-1.04) mg/dL Estimated GFR ML/MIN Glucose (74-106) mg/dL Calcium (8.4-10.2) mg/dL Magnesium (1.6-2.3) mg/dL Total Bilirubin (0.2-1.3) mg/dL AST (14-36) U/L ALT (0-35) U/L Alkaline Phosphatase (38-126) U/L Serum Total Protein (6.3-8.2) g/dL Albumin (3.5-5.0) g/dL Lipase 77 (23-300) U/L Stl Occult Blood (IFOB) POSITIVE A (NEGATIVE) Medications: Medications Generic Name Dose Route Start Last Admin Trade Name Freq PRN Reason Stop Dose Admin Acetaminophen 650 mg 04/26/25 12:53 Acetaminophen 325 Mg Tablet PO 05/26/25 12:52 Q4H PRN PRN PAIN, FEVER, HEADACHE Dicyclomine HCl 20 mg 04/27/25 07:45 04/28/25 18:23 Dicyclomine Hcl 20 Mg Tablet PO 05/27/25 07:44 20 mg QID PRN PRN Administration PAIN Diphenhydramine/Hydrocorti/Nystatin 10 ml 04/27/25 13:00 04/28/25 22:31 Nystatin/Pred/Diphenhydr 240 Ml Bottle PO 05/27/25 12:59 Not Given QID REPLACED BY [facility] Enoxaparin Sodium 40 mg 04/26/25 14:00 04/27/25 10:34 Enoxaparin Sodium 40 Mg/0.4 Ml Syringe SQ 05/26/25 13:59 Not Given DAILY REPLACED BY [facility] Gabapentin 600 mg 04/26/25 13:40 04/29/25 02:31 Gabapentin 300 Mg Capsule PO 05/26/25 13:39 600 mg QID PRN PRN Administration PAIN Hydromorphone HCl 0.5 mg 04/27/25 12:04 04/29/25 01:24 Hydromorphone 1 Mg/1ml Inj IV 05/02/25 12:03 0.5 mg Q4H PRN PRN Administration PAIN Sodium Chloride 1,000 mls @ 100 mls/hr 04/27/25 17:00 04/28/25 23:57 Sodium Chloride 0.9% 1000 Ml IV 05/27/25 16:59 100 mls/hr .Q10H OMAR Administration Levofloxacin/Dextrose 750 mg in 150 mls @ 100 mls/hr 04/28/25 10:00 04/28/25 08:58 Levofloxacin 750mg/150ml D5w IV 05/28/25 09:59 100 mls/hr Q24H10 OMAR Administration Ondansetron HCl 4 mg 04/26/25 12:53 04/29/25 01:23 Ondansetron Hcl 4 Mg/2 Ml Vial IV 05/26/25 12:52 4 mg Q6H PRN PRN Administration NAUSEA/VOMITING Pantoprazole Sodium 40 mg 04/27/25 22:00 04/28/25 21:09 Pantoprazole 40 Mg Vial IV 05/27/25 21:59 40 mg BID OMAR Administration Sucralfate 1 g 04/28/25 22:00 04/28/25 21:09 Sucralfate 1 G Tablet PO 05/28/25 21:59 1 g ACHS OMAR Administration Discontinued Medications Generic Name Dose Route Start Last Admin Trade Name Freq PRN Reason Stop Dose Admin Hydrocodone Bitart/Acetaminophen 1 tab 04/27/25 07:44 04/27/25 08:34 Hydrocodone/Apap 5/325 1 Tab Tablet PO 05/02/25 07:43 1 tab Q4H PRN PRN Administration PAIN Droperidol 1.25 mg 04/26/25 10:15 04/26/25 10:18 Droperidol 5 Mg/2 Ml Vial IV 04/26/25 10:16 1.25 mg STAT ONE Administration Droperidol Confirm 04/26/25 10:18 Droperidol 5 Mg/2 Ml Vial Administered 04/26/25 10:19 Dose 5 mg .ROUTE .STK-MED ONE Hydromorphone HCl 0.5 mg 04/26/25 11:14 04/26/25 11:18 Hydromorphone 1 Mg/1ml Inj IV 04/26/25 11:15 0.5 mg STAT ONE Administration Hydromorphone HCl Confirm 04/26/25 11:16 Hydromorphone 1 Mg/1ml Inj Administered 04/26/25 11:17 Dose 1 mg .ROUTE .STK-MED ONE Hydromorphone HCl 0.5 mg 04/26/25 13:21 04/27/25 04:21 Hydromorphone 1 Mg/1ml Inj IV 05/01/25 13:20 0.5 mg Q4H PRN PRN Administration PAIN Hydroxyzine HCl 25 mg 04/27/25 21:54 04/27/25 22:04 Hydroxyzine Hcl 25 Mg Tablet PO 04/27/25 21:55 25 mg STAT ONE Administration Sodium Chloride 1,000 mls @ 100 mls/hr 04/26/25 10:00 04/26/25 10:09 Sodium Chloride 0.9% 1000 Ml IV 05/26/25 09:59 100 mls/hr .Q10H OMAR Administration Ceftriaxone Sodium 1 gm in 100 mls @ 200 mls/hr 04/26/25 11:46 04/26/25 11:49 Rocephin 1 Gm / 100 Ml Nacl IV 04/26/25 12:15 200 ml/hr STAT ONE 200 mls/hr Administration Ceftriaxone Sodium Confirm 04/26/25 11:49 Rocephin 1 Gm / 100 Ml Nacl Administered 04/26/25 11:50 Dose 1 gm in 100 mls @ ud IV .STK-MED ONE Sodium Chloride Confirm 04/26/25 10:08 Sodium Chloride 0.9% 1000 Ml Administered 04/26/25 10:09 Dose 1,000 mls @ ud .ROUTE .STK-MED ONE Ceftriaxone Sodium 1 gm in 100 mls @ 200 mls/hr 04/27/25 10:00 04/27/25 10:06 Rocephin 1 Gm / 100 Ml Nacl IV 05/27/25 09:59 200 mls/hr Q24H10 OMAR Administration Sodium Bicarbonate 150 meq/ 1,150 mls @ 100 mls/hr 04/26/25 14:00 04/27/25 01:16 Dextrose IV 05/26/25 13:59 100 ml/hr .[id number] OMAR 100 mls/hr Administration Magnesium Sulfate/Water 2 gm in 50 mls @ 100 mls/hr 04/27/25 08:00 04/27/25 10:03 Magnesium Sulf 2 G/50 Ml Bag IV 04/27/25 08:29 100 mls/hr ONCE ONE Administration Ketorolac Tromethamine 30 mg 04/26/25 10:04 04/26/25 10:18 Ketorolac Tromethamine 30 Mg/Ml Inj IV 04/26/25 10:05 Not Given STAT ONE Ketorolac Tromethamine Confirm 04/26/25 10:08 Ketorolac Tromethamine 30 Mg/Ml Inj Administered 04/26/25 10:09 Dose 30 mg .ROUTE .STK-MED ONE Pantoprazole Sodium 40 mg 04/26/25 13:00 04/27/25 10:03 Pantoprazole 40 Mg Vial IV 05/26/25 12:59 40 mg Q24H10 OMAR Administration Potassium Bicarbonate 50 meq 04/27/25 05:46 04/27/25 06:15 Potassium Bicarbonate 25 Meq Tab PO 04/27/25 05:47 50 meq STAT ONE Administration Propofol Confirm 04/28/25 15:46 Propofol 200 Mg/20 Ml Vial Administered 04/28/25 15:47 Dose 200 mg IV .STK-MED ONE Tramadol HCl 50 mg 04/27/25 07:44 Tramadol Hcl 50 Mg Tablet PO 05/27/25 07:43 QID PRN PRN PAIN Multi-Disciplinary Progress Notes: Multi-Disciplinary Progress Notes 04/28/25 10:56 Case Management Note by Carmen Yanes PATIENT AGAIN REFUSING TO TALK WITH THIS CONTACT FINGER ASSEMBLER FOR ASSESSMENT/NEEDS. SHE DID HOWEVER DENY ANY NEW NEEDS AT TIME OF DC. SHE PLANS TO DC HOME TO HER PLF Initialized on 04/28/25 10:56 - END OF NOTE Assessment/Plan (1) UTI (urinary tract infection) Current Visit: Yes Status: Acute Assessment & Plan: -UA with leukocytes, many bacteria, marked pyuria, and hematuria -Leukocytosis with wbc at 12.1 -Ceftriaxone given in ED will continue- follow cultures 04/27 -WBC now wnl at 7.2 -Gram + ID on culture -continue ceftriaxone pending final sensitivity 04/28: -Urine culture with enterococcous - dc ceftriaxone, continue levaquin -WBC WNL at 5.5 Code(s): N39.0 - URINARY TRACT INFECTION, SITE NOT SPECIFIED (2) Nausea & vomiting Current Visit: Yes Status: Acute Assessment & Plan: -Ongoing symptomatic vomiting limiting intake -Zofran as needed -Continue IVF -Advance diet as tolerated 04/27: -Resolved, attempted to advance diet - patient complaining of abdominal pain- will keep NPO Code(s): R11.2 - NAUSEA WITH VOMITING, UNSPECIFIED (3) Leukocytosis Current Visit: Yes Status: Acute Assessment & Plan: -Most likely 2/2 to UTI --CT abdomen with no acute process -CXR -lacid acid WNL -Blood cultures x 2 -Ucult pending -Continue Ceftriaxone 04/27: -WBC now wnl at 7.2 -continue ceftriaxone -Blood/urine cultures pending 04/28: -Blood cultures pending -Urine culture with enterococcus see plan above -WBC WNL Code(s): D72.829 - ELEVATED WHITE BLOOD CELL COUNT, UNSPECIFIED Hypokalemia -Potassium at 3.o - will replenish per protocol -tele -repeat potassium at 3.8 04/28: -Potassium wnl -continue daily monitoring -tele Hypomagnesemia -Resolved now at 1.6 -Monitor daily (4) Abdominal pain Current Visit: Yes Status: Acute Assessment & Plan: -Likely multifactorial from UTI, renal stone, dehydration, and acidosis -CT negative for surgical cause, lipase normal -see treatment for UTI above 04/27: -NPO -Continue protonix change to BID 40mg -General Surgery Consult placed for diagnostic EGD/colonoscopy given: Persistent severe epigastric pain;New black stools;No acute explanation on CT imaging + occult stools -Serial hemoglobin/hematocrit -Strict avoidance of NSAIDs. -Antiemetics as needed -Pain control: -occult stools 04/28: -Occult stools + -Protonix BID -Surgery consult pending -Hold anticoag -NPO -Pain control -add lipase Melena -occult stools -Surgery consulted for possible EGD/colonoscopy 04/28: -Occult stool + -Protonix 40mg bid -Keep NPO -Noted drop in hemoglobin since admission now at 11.4 was at 15.6 -surgery consulted and pending -transfuse if hgb less than 7 Gastric Ulcer -EGD with gastric ulcer -Surgery recs for carafate and protonix -ADAT Code(s): R10.9 - UNSPECIFIED ABDOMINAL PAIN Coated Tongue -Geographic Tongue vs. Superimposed Oral Irritation -Svetlana Magic Mouthwash swish and swallow as ordered for symptomatic relief. -Maintain good oral hygiene as tolerated. -Monitor for development of true oral candidiasis (worsening plaques, bleeding with scraping). (5) High anion gap metabolic acidosis Current Visit: Yes Status: Acute Assessment & Plan: -Low bicarbonate with elevated anion gap, lactic acid normal -Likely due to vomiting, dehydration, and acute infection -Continue bicarb drip -BMP q4h 04/27: -Acidosis resolved with co2 at 22; GAP 12.2; lactic WNL -Bicarb drip discontinued Code(s): E87.29 - OTHER ACIDOSIS (6) Renal calculi Current Visit: Yes Status: Acute Assessment & Plan: -Seen on CT without hydronephrosis or obstruction -Manage conservatively with hydration and pain control -Monitor renal function and symptoms (7) PVD (peripheral vascular disease) Current Visit: Yes Status: Acute Assessment & Plan: -continue home regimen Code(s): I73.9 - PERIPHERAL VASCULAR DISEASE, UNSPECIFIED (8) Fibromyalgia Current Visit: Yes Status: Acute Assessment & Plan: -continue home regimen (9) Migraines Current Visit: Yes Status: Acute Assessment & Plan: -continue home meds (10) Bipolar 1 disorder Current Visit: No Status: Chronic Code(s): F31.9 - BIPOLAR DISORDER, UNSPECIFIED -Continue home meds VTE: lovenox- held PPI: protonix Dispo: 1-2 days Code Status: SCO Plan of care time spent > 40 mins Code(s): N39.0 - URINARY TRACT INFECTION, SITE NOT SPECIFIED (2) Nausea & vomiting Current Visit: Yes Status: Acute Code(s): R11.2 - NAUSEA WITH VOMITING, UNSPECIFIED (3) Leukocytosis Current Visit: Yes Status: Acute Code(s): D72.829 - ELEVATED WHITE BLOOD CELL COUNT, UNSPECIFIED (4) Abdominal pain Current Visit: Yes Status: Acute Code(s): R10.9 - UNSPECIFIED ABDOMINAL PAIN (5) High anion gap metabolic acidosis Current Visit: Yes Status: Acute Code(s): E87.29 - OTHER ACIDOSIS (6) Renal calculi Current Visit: Yes Status: Acute (7) PVD (peripheral vascular disease) Current Visit: Yes Status: Acute Code(s): I73.9 - PERIPHERAL VASCULAR DISEASE, UNSPECIFIED (8) Fibromyalgia Current Visit: Yes Status: Acute (9) Migraines Current Visit: Yes Status: Acute Code(s): G43.909 - MIGRAINE, UNSP, NOT INTRACTABLE, WITHOUT STATUS MIGRAINOSUS (10) Gastric ulcer Current Visit: Yes Status: Acute Code(s): K25.9 - GASTRIC ULCER, UNSP ACUTE OR CHRONIC, W/O HEMOR OR PERF (11) Bipolar 1 disorder Current Visit: No Status: Chronic Code(s): F31.9 - BIPOLAR DISORDER, UNSPECIFIED (12) Hypokalemia Current Visit: Yes Status: Acute Code(s): E87.6 - HYPOKALEMIA (13) Hypomagnesemia Current Visit: Yes Status: Acute Code(s): E83.42 - HYPOMAGNESEMIA
[2025-04-29 06:52] LABS: BASOPHIL % 0.3 % (0.1-1.2); Basophil (Absolute #) 0.02 x10^3/uL (0.01-0.08); Eosinophil (Absolute #) 0.17 x10^3/uL (0.04-0.36); Hematocrit 35.5 % (34.1-44.9); Hemoglobin 11.1 g/dL (11.2-15.7); IMMATURE GRAN # 0.03 x10^3u/L (0.001-0.031); IMMATURE GRAN % 0.5 % (0.001-0.429); Lymphocyte (Absolute #) 2.78 x10^3/uL (1.18-3.74); Mean Corpuscular Hemoglobin 30.7 pg (25.6-32.2); Mean Corpuscular Hgb Concent. 31.3 g/dL (32.2-35.5); Monocyte (Absolute #) 0.44 x10^3/uL (0.24-0.86); NUCLEATED RBC # 0.00 x10^3u/L (0.00-0.012); NUCLEATED RBC % 0.0 % (0.00-0.2); Platelet Count 387 x10^3/uL (182-369); Red Blood Count 3.62 x10^6/uL (3.93-5.22); White Blood Count 6.5 x10^3/uL (3.98-10.04)
[2025-04-29 07:05] LABS: Calcium 8.3 mg/dL (8.4-10.2); Carbon Dioxide 22.0 mmol/L (22-30); Creatinine 1 0.66 mg/dL (0.52-1.04); EST GLOMERULAR FILTRATION RATE 108.1 ML/MIN; Glucose 76.0 mg/dL (74-106); Potassium 3.6 mmol/L (3.5-5.1); SGOT/AST 16.0 U/L (14-36); SGPT/ALT 9.0 U/L (0-35); Total Protein 5.3 g/dL (6.3-8.2)
[2025-04-29 07:56] VITALS: BP 90/54; PULSE 63; TEMP 98.9; O2SAT 98
[2025-04-29] MEDS: NORCO 5/325 MG PO PRN (09:00)
--- NOTE | 2025-04-29 11:20 | PCM.DS ---
Discharge Summary Date of Admission: 04/26/25 12:22 Date of Discharge: 04/29/25 Admitting Physician: CHING FLORIAN MD Consults: Consults on Case 04/27/25 10:59 Consult Surgery ROUTINE Primary Care Provider: GASTON CAMPUZANO Allergies Allergies Sulfa (Sulfonamide Antibiotics) Allergy (Intermediate, Verified 04/26/25 09:44) Vomiting bee venom protein (honey bee) Allergy (Verified 04/26/25 09:44) ketorolac [From Toradol] Allergy (Verified 04/26/25 10:14) methylprednisolone [From Solu-Medrol] Allergy (Verified 04/26/25 09:44) anger can take oral steroids, IV steroids she cannot take -- states she gets "roid rage" promethazine [From Phenergan] Allergy (Verified 04/26/25 09:44) sumatriptan [From Imitrex] Allergy (Verified 04/26/25 09:44) nitrofurantoin [From Macrobid] Adverse Reaction (Verified 04/26/25 09:44) tramadol Adverse Reaction (Verified 04/26/25 09:44) Nausea flu vaccine Allergy (Intermediate, Uncoded 04/26/25 09:44) Hoarseness of voice Hospital Summary - Hospital Course Hospital Course: Ms. Al is a 50 year old female with pmxh of migraines, peripheral vascular disease, bipolar disorder, fibromyalgia, former tobacco use; history of multiple prior admissions for drug overdose presented on 04/26/25 with two weeks of persistent vomiting and acute worsening mid-abdominal/epigastric pain starting the day of ED presentation, radiating to the right flank/back, described as stabbing/cramping/burning and severe (up to 910/10) with inability to tolerate PO. In the ED she was hemodynamically stable but had leukocytosis (WBC 12.1) and high anion gap metabolic acidosis (CO2 12, AG 21.2) with normal lactate and lipase. UA was concerning for UTI with marked pyuria, bacteriuria, microscopic hematuria, and hyaline casts. CT abdomen/pelvis showed non-obstructing left renal calculi and no acute intra-abdominal pathology (noted postoperative changes from prior cholecystectomy/hysterectomy; calcified splenic granulomas). She received ceftriaxone, analgesia (ketorolac/hydromorphone), and antiemetic therapy in the ED and was admitted for ongoing pain, metabolic derangements, and suspected UTI. By 04/27/25, vomiting improved and the anion gap acidosis resolved (CO2 normalized, AG closed) after IV fluids and a brief bicarbonate drip; however, she continued to have severe epigastric pain and reported new black stools with positive fecal occult blood, prompting escalation of acid suppression to pantoprazole 40 mg BID, strict NSAID avoidance, serial H/H monitoring, NPO status, and General Surgery consultation for endoscopic evaluation given persistent pain and melena despite non-revealing CT. Electrolyte abnormalities (hypokalemia and hypomagnesemia) were repleted with improvement. Urine culture subsequently grew Enterococcus, and antibiotics were transitioned from ceftriaxone to levofloxacin. On 04/28/25, she remained without recurrent nausea/vomiting but continued abdominal pain and had dysuria; hemoglobin trended down from 15.6 on admission to 11.4, consistent with clinically significant GI blood loss in the setting of melena/FOBT+. On 04/29/25, EGD demonstrated a 2 cm gastric ulcer on the lesser curvature. Per General Surgery recommendations, she was started on carafate (sucralfate) and continued PPI therapy, after which she was able to tolerate diet, her symptoms improved, and she was deemed stable for discharge by surgery with close outpatient follow-up and strict ulcer precautions. Discharge Note New Diagnosis: Gastric Ulcer/UTI/ Acidosis New Medications: Levaquin/carafate/protonix Follow Up: PCP/surgery I spent 35 minutes [id number] with the patient on the day of discharge performing discharge exam, discussing hospital stay and discharge instructions with patient and caregivers, preparation of discharge records, prescriptions & referral forms and addressing any questions/concerns the patient had as documented above. - Vitals & Intake/Output Vital Signs: Vital Signs Temperature 98.9 F 04/29/25 07:54 Pulse Rate 63 04/29/25 07:54 Respiratory Rate 16 04/29/25 07:54 Blood Pressure 90/54 04/29/25 07:54 O2 Sat by Pulse Oximetry 98 04/29/25 07:54 Intake & Output: Intake & Output 04/26/25 04/27/25 04/28/25 04/29/25 11:59 11:59 11:59 11:59 Intake Total 2559 1544 4509 Balance 2559 1544 4509 Weight 59.2 kg 60 kg 60 kg - Lab Result Diagrams: 04/29/25 06:20 04/29/25 06:20 Lab Results-Last 24 Hrs: Lab Results-Last 24 Hours 04/28/25 04/29/25 04/29/25 Range/Units 07:51 06:20 06:20 WBC 6.5 (3.98-10.04) x10^3/uL RBC 3.62 L (3.93-5.22) x10^6/uL Hgb 11.1 L (11.2-15.7) g/dL Hct 35.5 (34.1-44.9) % MCV 98.1 H (79.4-94.8) fL MCH 30.7 (25.6-32.2) pg MCHC 31.3 L (32.2-35.5) g/dL RDW 13.9 (11.7-14.4) % Plt Count 387 H (182-369) x10^3/uL MPV 9.0 L (9.4-12.3) fL Gran % 47.3 (34.0-71.1) % Immature Gran % (Auto) 0.5 H (0.001-0.429) % Nucleat RBC Rel Count 0.0 (0.00-0.2) % Eos # (Auto) 0.17 (0.04-0.36) x10^3/uL Immature Gran # (Auto) 0.03 (0.001-0.031) x10^3u/L Absolute Lymphs (auto) 2.78 (1.18-3.74) x10^3/uL Absolute Monos (auto) 0.44 (0.24-0.86) x10^3/uL Absolute Nucleated RBC 0.00 (0.00-0.012) x10^3u/L Lymphocytes % 42.6 (19.3-51.7) % Monocytes % 6.7 (4.7-12.5) % Eosinophils % 2.6 (0.7-5.8) % Basophils % 0.3 (0.1-1.2) % Absolute Granulocytes 3.09 (1.56-6.13) x10^3/uL Basophils # 0.02 (0.01-0.08) x10^3/uL Sodium 135 (135-145) mmol/L Potassium 3.6 (3.5-5.1) mmol/L Chloride 107 (98-107) mmol/L Carbon Dioxide 22 (22-30) mmol/L Anion Gap 9.6 (5-15) MEQ/L BUN 5 L (7-17) mg/dL Creatinine 0.66 (0.52-1.04) mg/dL Estimated GFR 108.1 ML/MIN Glucose 76 (74-106) mg/dL Calcium 8.3 L (8.4-10.2) mg/dL Magnesium (1.6-2.3) mg/dL Total Bilirubin 0.40 (0.2-1.3) mg/dL AST 16 (14-36) U/L ALT 9 (0-35) U/L Alkaline Phosphatase 65 (38-126) U/L Serum Total Protein 5.3 L (6.3-8.2) g/dL Albumin 2.8 L (3.5-5.0) g/dL Lipase 77 (23-300) U/L 04/29/25 Range/Units 06:20 WBC (3.98-10.04) x10^3/uL RBC (3.93-5.22) x10^6/uL Hgb (11.2-15.7) g/dL Hct (34.1-44.9) % MCV (79.4-94.8) fL MCH (25.6-32.2) pg MCHC (32.2-35.5) g/dL RDW (11.7-14.4) % Plt Count (182-369) x10^3/uL MPV (9.4-12.3) fL Gran % (34.0-71.1) % Immature Gran % (Auto) (0.001-0.429) % Nucleat RBC Rel Count (0.00-0.2) % Eos # (Auto) (0.04-0.36) x10^3/uL Immature Gran # (Auto) (0.001-0.031) x10^3u/L Absolute Lymphs (auto) (1.18-3.74) x10^3/uL Absolute Monos (auto) (0.24-0.86) x10^3/uL Absolute Nucleated RBC (0.00-0.012) x10^3u/L Lymphocytes % (19.3-51.7) % Monocytes % (4.7-12.5) % Eosinophils % (0.7-5.8) % Basophils % (0.1-1.2) % Absolute Granulocytes (1.56-6.13) x10^3/uL Basophils # (0.01-0.08) x10^3/uL Sodium (135-145) mmol/L Potassium (3.5-5.1) mmol/L Chloride (98-107) mmol/L Carbon Dioxide (22-30) mmol/L Anion Gap (5-15) MEQ/L BUN (7-17) mg/dL Creatinine (0.52-1.04) mg/dL Estimated GFR ML/MIN Glucose (74-106) mg/dL Calcium (8.4-10.2) mg/dL Magnesium 1.6 (1.6-2.3) mg/dL Total Bilirubin (0.2-1.3) mg/dL AST (14-36) U/L ALT (0-35) U/L Alkaline Phosphatase (38-126) U/L Serum Total Protein (6.3-8.2) g/dL Albumin (3.5-5.0) g/dL Lipase (23-300) U/L Micro Results-Entire Visit: Microbiology 04/26/25 10:54 Urine Culture - Final Clean Catch Midstream Enterococcus Faecalis 04/26/25 17:05 Blood Culture - Preliminary Blood 04/26/25 13:20 Blood Culture - Preliminary Blood - Procedures and Test Procedures and Tests throughout Hospitalization: Therapy Orders & Screens 04/26/25 12:53 Respiratory Therapy Consult ONCE Comment: Reason For Exam: Diagnosis: n/v abdominal pain Discharge Exam General Appearance: no apparent distress Neurologic Exam: alert, oriented x 3, cooperative Eye Exam: PERRL Ears, Nose, Throat Exam: normal ENT inspection Neck Exam: normal inspection Respiratory Exam: normal breath sounds, lungs clear Cardiovascular Exam: regular rate/rhythm, normal heart sounds Gastrointestinal/Abdomen Exam: soft, normal bowel sounds Pelvic Exam: deferred Rectal Exam: deferred Back Exam: normal inspection Extremity Exam: normal inspection Skin Exam: normal color Final Diagnosis/Problem List - Final Discharge Diagnosis/Problem (1) Gastric ulcer Current Visit: Yes Status: Acute Assessment & Plan: Gastric ulcer (EGD 12/12/25: 2 cm ulcer, lesser curvature) with melena / FOBT+ and hemoglobin drop (15.6- 11.1) Pantoprazole 40 mg BID Sucralfate (Carafate) as prescribed by surgery Strict NSAID avoidance (no ibuprofen/naproxen/ketorolac); avoid alcohol and smoking. Diet: advance as tolerated; avoid trigger foods if symptomatic. Bleed monitoring: return immediately for black/tarry stools, bright red blood, hematemesis/coffee-ground emesis, syncope, chest pain, worsening fatigue, or shortness of breath. Follow-up: General Surgery outpatient as arranged for ulcer follow-up and next steps H. pylori: if biopsies/testing were obtained with EGD, outpatient follow-up for results/treatment if positive. Code(s): K25.9 - GASTRIC ULCER, UNSP ACUTE OR CHRONIC, W/O HEMOR OR PERF (2) UTI (urinary tract infection) Current Visit: Yes Status: Acute Assessment & Plan: Ceftriaxone given initially, then transitioned to levofloxacin once culture identified Enterococcus. Discharge antibiotic: continue levofloxacin to complete the prescribed course Encourage hydration; return for fever, flank pain, worsening dysuria, vomiting, or inability to keep fluids down. Code(s): N39.0 - URINARY TRACT INFECTION, SITE NOT SPECIFIED (3) Nausea & vomiting Current Visit: Yes Status: Acute Assessment & Plan: resolved Code(s): R11.2 - NAUSEA WITH VOMITING, UNSPECIFIED (4) Leukocytosis Current Visit: Yes Status: Acute Assessment & Plan: resolved Code(s): D72.829 - ELEVATED WHITE BLOOD CELL COUNT, UNSPECIFIED (5) Abdominal pain Current Visit: Yes Status: Acute Assessment & Plan: resolved see plan above for gastric ulcer Code(s): R10.9 - UNSPECIFIED ABDOMINAL PAIN (6) High anion gap metabolic acidosis Current Visit: Yes Status: Acute Assessment & Plan: Likely from dehydration/starvation ketosis physiology in the setting of prolonged vomiting + acute illness. Resolved with IV fluids and brief bicarbonate support; no further therapy needed at discharge aside from hydration and diet. Code(s): E87.29 - OTHER ACIDOSIS (7) Renal calculi Current Visit: Yes Status: Acute Assessment & Plan: No hydronephrosis/obstruction; managed conservatively. Hydration encouraged; return for colicky flank pain, fever, or urinary obstruction symptoms. (8) PVD (peripheral vascular disease) Current Visit: Yes Status: Acute Assessment & Plan: resume home regimen Code(s): I73.9 - PERIPHERAL VASCULAR DISEASE, UNSPECIFIED (9) Fibromyalgia Current Visit: Yes Status: Acute Assessment & Plan: resume home meds (10) Migraines Current Visit: Yes Status: Acute Assessment & Plan: resume home meds Code(s): G43.909 - MIGRAINE, UNSP, NOT INTRACTABLE, WITHOUT STATUS MIGRAINOSUS (11) Bipolar 1 disorder Current Visit: No Status: Chronic Assessment & Plan: resume home meds Code(s): F31.9 - BIPOLAR DISORDER, UNSPECIFIED (12) Hypokalemia Current Visit: Yes Status: Acute Assessment & Plan: Repleted inpatient with normalization. Recommend routine outpatient monitoring if poor PO intake returns; maintain hydration and nutrition Code(s): E87.6 - HYPOKALEMIA (13) Hypomagnesemia Current Visit: Yes Status: Acute Assessment & Plan: Repleted inpatient with normalization. Recommend routine outpatient monitoring if poor PO intake returns; maintain hydration and nutrition Code(s): E83.42 - HYPOMAGNESEMIA - Discharge Discharge Date: 04/29/25 Disposition: Home, Self-Care Condition: Stable Prescriptions: New Sucralfate 1 gm [Carafate 1 GM] 1 g PO ACHS 30 Days #120 tablet levoFLOXacin [Levofloxacin] 750 mg PO DAILY 5 Days #5 tablet PANTOPRAZOLE 40 mg Tablet [Protonix 40MG Tablet] 40 mg PO BID 30 Days #60 tab Continue Gabapentin [Neurontin ] 600 mg PO QID PRN PRN Reason: Pain Dicyclomine HCl 20 mg [Bentyl 20 mg] 20 mg PO QID PRN PRN Reason: Pain Follow up with: GASTON CAMPUZANO [Primary Care Provider, [facility]] - 05/05/25 10:00 am TARSHA PARRISH MD [ACTIVE STAFF, GENERAL SURGERY]
--- NOTE | 2025-04-29 15:42 | OP ---
SURGERY DATE/TIME: 04/28/2025 [id number] PREOPERATIVE DIAGNOSES: 1) Abdominal pain. 2) Nausea. 3) Vomiting. 4) Melena. POSTOPERATIVE DIAGNOSIS: Gastric ulcer, 2 cm. PROCEDURE: EGD and biopsies. SURGEON: Ras Eagle MD ANESTHESIA: IV. CONDITION: Stable. COMPLICATIONS: None. SPECIMENS: 1) Ulcer biopsy. 2) Gastric biopsy for H pylori. INDICATIONS: Patient is a 50-year-old who presents with 2 weeks of nausea, abdominal pain, intermittent vomiting but then worse tolerating by mouth, presents to the hospital and then actually starts having melanotic stool. Her hemoglobin did have about a 2 g drop, also with emesis of kind of coffee ground. Discussion had with the patient. Recommendations for EGD. She elected to proceed. FINDINGS: A 2 cm hemostatic ulcer, lesser curve prepyloric. No active bleeding. DESCRIPTION OF PROCEDURE AND FINDINGS: Patient was brought to the endoscopy suite, routinely positioned, prepared. IV anesthesia induced by Anesthesia. Gastroscope inserted through the mouth, advanced to the third portion of the duodenum. Duodenum was normal in appearance. The stomach, lesser curve has about a 2 cm clean-based ulcer with a healthy rim. A biopsy was taken of the rim of the ulcer, and then biopsies taken of the stomach for H pylori with a cold forceps. On the ulcer, there is a blood-tinged area that is not really a clot, but it was irrigated off. There is not really any clot there, not a visible vessel. Totally hemostatic and healthy at this time. Retroflexion satisfactory. Stomach suctioned out. Scope was withdrawn. Patient tolerated the procedure well. RECOMMENDATIONS: Protonix 40 mg IV b.i.d., transition to 40 p.o. b.i.d.; Carafate 1 g q.i.d., and then I would just advance her to a soft diet at this point. We need to be notified of any repeat concerns for bleeding.
== END 2025-04-29 13:20 | disposition home or self-care (01) ==
LOC: ED 09:27 → MED SURG 12:22 → ED 12:22
PROVIDERS: ADMIT Internal Medicine; ATTEND Internal Medicine
DX: K25.9 Gastric ulcer, unspecified as acute or chronic, without hemorrhage or perforation (principal); N39.0 Urinary tract infection, site not specified; R11.2 Nausea with vomiting, unspecified; D72.829 Elevated white blood cell count, unspecified; R10.9 Unspecified abdominal pain; E87.29 Other acidosis; N20.0 Calculus of kidney; I73.9 Peripheral vascular disease, unspecified; M79.7 Fibromyalgia; G43.909 Migraine, unspecified, not intractable, without status migrainosus; F31.9 Bipolar disorder, unspecified; E87.6 Hypokalemia; E83.42 Hypomagnesemia; K92.1 Melena; Z79.899 Other long term (current) drug therapy; Z87.891 Personal history of nicotine dependence
CPT/HCPCS: 36415; 43239; 71045; 74176; 80048; 80053; 80307; 81001; 82274; 83605; 83690; 83735; 84484; 85025; 85379; 87040; 87077; 87086; 87186; 93005; 93268; 94760; 96374; 99285; G0378; Q3014